=== PATIENT | male | born 1965 | race Caucasian/White ===

== ENCOUNTER → 2016-03-22 | Outpatient (CLI) | payer OTHER ==
[~2016-03-22] MED LIST: ACET-1311 PO; ALUM-30 PO; BUSP15TA70 PO; CARB1SOL8 OT; CARBSOL OTB; CLOB1SUS PO; CLOBAZAM PO; DEXT5LIQ23 PO; DOCU-94 PO; FLUO20CA37 PO; GABA-112 PO; LACO200T PO; LAMO1TAB76 PO; LAMO1TAB77 PO; LOPE-5 PO; MOML PO; MULT-190 PO; MULT60CA PO; NEOMOIN2 TOP; PRLSR20 PO; PROP80CA PO; SENN-65 PO; [UNRECOGNIZED DRUG - CODE] PO
[2016-03-22 17:22] LABS: BASO % 0.6 %; BASO ABS # 0.03 K/uL (0-0.2); COMPLETE YES; EOS % 0.9 %; IG% 0.2 %; LYMPH ABS # 1.22 K/uL (1.2-3.4); MEAN CELL VOLUME 92.2 fL (80-100); MEAN CORPUSCULAR HEMOGLOBIN 30.8 pg (25-34); MEAN CORPUSCULAR HGB CONC 33.4 g/dl (32-36); MONO % 10.9 %; NEUT % 64.4 %; PLATELET COUNT 153 K/uL (130-400); RED BLOOD COUNT 4.77 M/uL (4.7-6.1)
[2016-03-22 17:45] LABS: ALT/SGPT 19 U/L (12-78); BLOOD UREA NITROGEN 11 mg/dl (7-18); BUN/CREATININE RATIO 11.2 (10-20); CALCIUM 9.2 mg/dl (8.5-10.1); CARBON DIOXIDE 30 mmol/L (21-32); CHLORIDE 105 mmol/L (98-107); GLUCOSE 80 mg/dl (70-99); POTASSIUM 3.7 mmol/L (3.5-5.1); SODIUM 144 mmol/L (136-145)
[2016-03-22 17:48] LABS: ALB/GLOB RATIO 1.4 (0.9-2); ALKALINE PHOSPHATASE 135 U/L (45-117); AST/SGOT 15 U/L (15-37)
== END | disposition home or self-care (01) ==
LOC: C.LABBFT 11:43
PROVIDERS: ATTEND Internal Medicine
DX: G40.909 Epilepsy, unspecified, not intractable, without status epilepticus (principal)

== ENCOUNTER 2016-03-23 10:53 | Emergency (ER) | payer OTHER ==
[~2016-03-23] VITALS: Ht 180.3 cm; Wt 85.0 kg
[~2016-03-23 10:53] MED LIST changes: -CARB1SOL8 OT; -CLOB1SUS PO; -DOCU-94 PO; -MULT-190 PO
[2016-03-23 11:00] VITALS: TEMP 37.1; Ht 180.3 cm; Wt 85.0 kg
[2016-03-23 11:06] VITALS: O2SAT 94
--- NOTE | 2016-03-23 13:36 | DIAGNOSTIC IMAGING REPORT ---
SACRUM COCCYX MIN 2 VIEWS CLINICAL HISTORY: fall, coccyx pain COMPARISON STUDY: AP pelvis dated 03/05/2015 FINDINGS: No sacral or coccygeal fractures are visualized on conventional radiographic imaging. Minimal irregularity of the sacrococcygeal junction as visualized on the lateral view is likely developmental. IMPRESSION: No fractures identified on conventional radiographic imaging. Electronically signed by: Terrence Liang M.D. 03/23/2016 1:35 PM Dictated Date/Time: 03/23/2016 1:33 PM
--- NOTE | 2016-03-23 13:36 | DIAGNOSTIC IMAGING REPORT ---
LEFT SHOULDER 3 VIEWS CLINICAL HISTORY: Fall with shoulder pain. FINDINGS: 3 views of the left shoulder are compared to study dated 02/08/2013. The skeletal structures are osteopenic. No fracture or dislocation is seen. Mild productive degenerative change is identified at the acromioclavicular joint. The glenohumeral articulation is preserved. Mild arthritic change is seen in the greater tuberosity of the humeral head. Calcific tendinopathy is noted. The overlying soft tissues are within normal limits. Imaged left upper lobe lung parenchyma appears clear. IMPRESSION: 1. No acute bony abnormality is seen in the left shoulder. 2. Osteopenia, mild arthritic change, and calcific tendinopathy as above. Electronically signed by: José Luis Major M.D. 03/23/2016 1:34 PM Dictated Date/Time: 03/23/2016 1:33 PM
--- NOTE | 2016-03-23 13:38 | DIAGNOSTIC IMAGING REPORT ---
RIGHT SHOULDER MIN 2 VIEWS ROUTINE CLINICAL HISTORY: Right shoulder pain status post trauma COMPARISON: 12/07/2015 DISCUSSION: No fractures or dislocations are visualized. There is a small ossicle adjacent the inferior aspect the scapular glenoid. This remains unchanged IMPRESSION: No acute fractures or dislocations identified. Electronically signed by: Terrence Liang M.D. 03/23/2016 1:37 PM Dictated Date/Time: 03/23/2016 1:36 PM
--- NOTE | 2016-03-23 13:51 | DIAGNOSTIC IMAGING REPORT ---
CT HEAD WITHOUT CONTRAST (CT) CLINICAL HISTORY: fall; headache COMPARISON STUDY: 01/10/2016 TECHNIQUE: Axial CT of the brain is performed from the vertex to the skull base. IV contrast was not administered for this examination. CT DOSE: 823.94 mGycm FINDINGS: No intra or extra-axial mass lesions are visualized. There is no CT evidence of acute cortical infarction. There is no evidence of midline shift. There is no acute hemorrhage. No calvarial fractures are visualized. There is no evidence of pathologic ventricular dilatation. There is no evidence of acute sinusitis IMPRESSION: No acute intracranial findings Electronically signed by: Terrence Liang M.D. 03/23/2016 1:50 PM Dictated Date/Time: 03/23/2016 1:48 PM
--- NOTE | 2016-03-23 14:10 | DIAGNOSTIC IMAGING REPORT ---
CT SCAN OF THE CERVICAL SPINE CLINICAL HISTORY: Fall with neck pain. COMPARISON STUDY: CT scan of the cervical spine dated 05/20/2015. TECHNIQUE: CT scan of the cervical spine is performed from the skull base to the upper thoracic spine. Images are reviewed in the axial, sagittal, and coronal planes. IV contrast was not administered for this examination. CT DOSE: 786.06 mGycm FINDINGS: Skeletal structures: The skeletal structures are osteopenic. There is no evidence of fracture or subluxation involving the cervical spine. Vertebral body height and alignment are maintained. There is straightening of the cervical lordosis. The odontoid process and lateral masses are intact. The atlantoaxial articulation is preserved. The spinous processes appear intact. Small anterior osteophytes are seen in the lower cervical region. Mild multilevel facet arthropathy is identified. Intervertebral discs: There is moderate degenerative disc space narrowing seen at C5-C6 and mild narrowing is seen at C6-C7. Central canal: Posterior disc osteophyte complexes at C5-C6 and C6-C7 may contribute to acquired compromise of the central canal. Soft tissues: The prevertebral and paraspinous soft tissues are within normal limits. Calcification is noted within the nuchal ligament. Calvarium: The visualized calvarium at the skull base appears intact. Brain parenchyma: Partially visualized brain parenchyma the skull base is within normal limits. Sinuses and mastoids: Trace mucosal thickening is seen in the maxillary antra. The mastoid air cells are well pneumatized. Lung apices: Clear as visualized. IMPRESSION: 1. There is no evidence of fracture or subluxation involving the cervical spine. 2. Osteopenia and spondylotic change as above. Electronically signed by: José Luis Major M.D. 03/23/2016 2:08 PM Dictated Date/Time: 03/23/2016 1:49 PM
--- NOTE | 2016-03-23 14:50 | DIAGNOSTIC IMAGING REPORT ---
CHEST ONE VIEW PORTABLE HISTORY: Fall. Weakness. COMPARISON: Chest 01/10/2016 FINDINGS: There are low lung volumes. The heart is mildly enlarged. Patchy bibasilar densities. Prior cholecystectomy. No pleural effusions. No pneumothorax. No evidence for pulmonary edema. IMPRESSION: 1. Low lung volumes with patchy bibasilar densities. This favors atelectasis. However, a pneumonia could also have a appearance. 2. Mild cardiomegaly, unchanged. Electronically signed by: Marshall Castillo M.D. 03/23/2016 2:48 PM Dictated Date/Time: 03/23/2016 2:44 PM
[2016-03-23 15:04] LABS: BASO % 0.4 %; BASO ABS # 0.02 K/uL (0-0.2); COMPLETE YES; HEMATOCRIT 40.4 % (42-52); IG% 0.2 %; LYMPH % 25.1 %; LYMPH ABS # 1.24 K/uL (1.2-3.4); MEAN CELL VOLUME 91.6 fL (80-100); MEAN CORPUSCULAR HEMOGLOBIN 31.3 pg (25-34); MEAN CORPUSCULAR HGB CONC 34.2 g/dl (32-36); MEAN PLATELET VOLUME 9.4 fL (7.4-10.4); MONO % 7.1 %; NEUT % 66.2 %; PLATELET COUNT 122 K/uL (130-400); RED BLOOD COUNT 4.41 M/uL (4.7-6.1); WHITE BLOOD COUNT 4.94 K/uL (4.8-10.8)
[2016-03-23 15:25] LABS: BUN/CREATININE RATIO 10.7 (10-20); CALCIUM 8.6 mg/dl (8.5-10.1); CREATININE 0.93 mg/dl (0.60-1.40); POTASSIUM 3.7 mmol/L (3.5-5.1)
[2016-03-23 15:39] LABS: URINE APPEARANCE CLEAR (CLEAR); URINE BILIRUBIN NEG (NEG); URINE COLOR YELLOW; URINE NITRITE NEG (NEG); URINE SPECIFIC GRAVITY 1.012 (1.000-1.030); UROBILINOGEN NEG (NEG)
[2016-03-23 16:04] LABS: MANUAL MICROSCOPIC REQUIRED? NO; REVIEW REQ? NO
[2016-03-23 16:51] VITALS: BP 124/85; PULSE 56; O2SAT 96
--- NOTE | 2016-03-23 20:52 | EMERGENCY ROOM VISIT NOTE ---
ED Visit Note First contact with patient: 12:07 Chief Complaint: Fall. History of Present Illness: Mr. Chatman is a 50-year-old white male who is brought into the ED via ambulance accompanied by 2 custodial workers. Historically patient has a history of encephalopathy, seizure disorder, ambulatory dysfunction and baseline tremor. He was discharged from a local rehabilitation hospital on March 06 through return to his custodial. At that time he was admitted for ambulatory dysfunction. assisted workers felt the patient has been doing well since being discharged. The group workers go on to report that patient was seen by his neurologist last Sunday and then starting Sunday reports he has had multiple falls. Most of the falls have been out of site of the staff predominantly in the bathroom. They go on to report today the patient fell out of bed this morning; once again this was not observed, but it is believed there was no loss of consciousness. Then he went to the kitchen for breakfast and had another fall. This was observed and there was no loss of consciousness and he did not strike his head. Patient and workers reports since his second fall he is complaining of head pain , neck pain, bilateral shoulder pain and coccyx pain. Patient is unable to describe his pain. He describes his headache as a global pain. Neck pain and he is not able to identify location, bilateral shoulder pain is in the humeral head areas and coccyx pain is over his coccyx. He does rate his discomfort and overall 2/10. None of his pains are radiating. He reports he has not identified any aggravating or alleviating factors related to his head pain, neck pain or shoulder pain. Sitting on his buttocks increases his coccyx pain. Patient has been given Tylenol for his pain without relief of his discomfort. He denies any visual changes, hearing changes, difficulty speaking, difficulty swallowing, nausea, vomiting, chest pain, shortness of breath, abdominal pain, extremity weakness. Review of Systems: As noted above in history of present illness. All body systems were reviewed and found to be negative as noted above. Past Medical History: (1) Altered mental status (2) Ambulatory dysfunction (3) Encephalopathy (4) Epilepsy (5) Hydronephrosis with ureteral calculus (6) Inguinal hernia (7) Kidney stone (8) Mild mental retardation (9) Rectal bleed (10) Seizure disorder (11) Status epilepticus (12) Tegretol toxicity (13) Tremor Current Medications: Medications Dose Route/Sig Max Daily Dose Days Date Category Dose Instructions [Clobazam] 10 MG Tab 5 Mg PO BID 30 01/12/16 Rx Neurontin (Gabapentin) 100 Mg Cap 200 Mg PO BID 01/10/16 Reported Vimpat (Lacosamide) 200 Mg Tab 200 Mg PO BID 10/20/15 Reported Neosporin (Neomycin/Polymyxin/Bacitracin) Oint 1 Appl TOP BID PRN 10/05/15 Reported Delsym (Dextromethorphan Polistirex) 30 Mg/5 Ml Liq 10 Ml PO Q12 PRN 09/10/15 Reported E-R-O Ear Wax Removal Sys (Carbamide Peroxide (Otic)) 6.5 % Jenniffer 5-10 Drops OTB UD 06/23/15 Reported 5-10 DROPS INTO EAR CANAL TWICE DAILY ON FIRST 3 DAYS OF THE MONTH. Felbamate 600 Mg Tab 600 Mg PO BID 06/23/15 Reported Preservision Areds 2 (Multiple Vitamins W/ Minerals) 1 Cap Cap 2 Cap PO QAM 06/23/15 Reported Tylenol (Acetaminophen) 325 Mg Tab 650 Mg PO Q6 PRN 06/23/15 Reported Senokot S (Sennosides-Docusate Sodium) 1 Tab Tab 1 Tab PO BID 03/22/15 Reported Lamotrigine Er (Lamotrigine) 200 Mg Tab 200 Mg PO BID 02/18/15 Reported ALONG WITH 100 MG TAB TO EQUAL TOTAL DOSAGE OF 300MG TWICE A DAY Propranolol Hcl Er (Propranolol Hcl) 80 Mg Cap 80 Mg PO BID 02/18/15 Reported Lamotrigine Er (Lamotrigine) 100 Mg Tab 100 Mg PO BID 02/18/15 Reported ALONG WITH 200MG TABLET TO EQUAL TOTAL DOSAGE OF 300MG TWICW DAILY Imodium A-D (Loperamide Hcl) 2 Mg Tab 4 Mg PO UD PRN 01/11/14 Reported Prozac (Fluoxetine Hcl) 20 Mg Cap 20 Mg PO HS 01/11/14 Reported Buspar (Buspirone Hcl) 15 Mg Tab 30 Mg PO HS 01/11/14 Reported Buspar (Buspirone Hcl) 15 Mg Tab 15 Mg PO QAM 01/11/14 Reported Mylanta (Alum & Mag Hydrox-Simethicone) 1 Henrietta Henrietta 30 Ml PO Q6H PRN 07/13/13 Reported Milk Of Magnesia (Magnesium Hydroxide) 30 Ml Susp 30 Ml PO UD PRN 07/13/13 Reported Prilosec (Omeprazole) 20 Mg Capcr 20 Mg PO QAM 11/21/08 Reported Allergies to Medications: Ibuprofen, Bactrim, levetiracetam. Social History: Patient is not currently employed and is on disability; he lives in a custodial; there is no reported tobacco or alcohol use. Physical Examination: Vital Signs: Date Time Temp Pulse Resp B/P Pulse Ox O2 Delivery O2 Flow Rate FiO2 03/23/16 16:51 56 18 124/85 96 Room Air 03/23/16 15:16 56 19 110/74 94 Room Air 03/23/16 12:00 54 18 101/67 93 Room Air 03/23/16 11:06 94 Room Air 03/23/16 11:00 57 03/23/16 11:00 37.1 59 18 122/65 95 Room Air GENERAL: 50-year-old male in mild distress due to pain, nontoxic-appearing, afebrile and hemodynamically stable. NEUROLOGICAL: Awake, alert and oriented to person; questionably place and time. Answering questions appropriately and following commands. Patient has a baseline tremor of the tongue and extremities. Okay hand eye coordination. Cranial nerves II through XII grossly intact. Unable to assess pronator drift or Romberg test. Poor short-term and long-term recall. SKIN: Warm, dry and pink. No soft tissue trauma noted. HEENT: Atraumatic and normocephalic. Skull: No bony deformity, depressions or tenderness. No raccoon's eyes or reyes signs. No drainage from any years of the nostril; no hemotympanum. Face: No bony deformities, bony tenderness, crepitus or ecchymosis. PERRLA. EOMI intact with no apparent nystatin this. Sclera white and conjunctiva pink. No malocclusion. No intraoral trauma. Airway patent. Speech is slightly garbled at times difficult to understand. Trachea midline. No jugular venous distention. BACK: No tenderness over the bony cervical, thoracic and lumbar spine. Full range of motion of the cervical spine. Moderate tenderness over the proximal coccyx without bony deformity or crepitus. I do not appreciate any swelling or ecchymosis in the area of the coccyx or sacrum. No CVA tenderness. THORAX: Lungs sounds are clear to auscultation and equal bilaterally with symmetrical chest wall. No wheezing, rales or rhonchi. No crepitus, tenderness , subcutaneous air or deformities noted. HEART: Regular rate and rhythm. No gallops, rubs or murmurs are appreciated. ABDOMEN: Flat, soft and nontender. Positive bowel sounds in all quadrants. No guarding, rigidity or organomegaly. UPPER EXTREMITIES: No gross bony deformity. No tenderness in the shoulder, elbow, forearm, wrist, hand and fingers. Difficult to assess range of motion due to tremor. Throughout the arms to skin was warm and pink and capillary refill is brisk. LOWER EXTREMITIES: No shortening or malrotation. No tenderness over the hips, thighs, knees, lower legs, ankles or feet. Throughout the legs the skin was warm and pink and capillary refill is brisk. ED Course: Patient is assessed as noted above. Laboratory Testing: Test 03/23/16 14:40 03/23/16 15:15 03/23/16 15:23 Range/Units White Blood Count 4.94 4.8-10.8 K/uL Red Blood Count 4.41 4.7-6.1 M/uL Hemoglobin 13.8 14.0-18.0 g/dL Hematocrit 40.4 42-52 % Mean Corpuscular Volume 91.6 80-100 fL Mean Corpuscular Hemoglobin 31.3 25-34 pg Mean Corpuscular Hemoglobin Concent 34.2 32-36 g/dl Platelet Count 122 130-400 K/uL Mean Platelet Volume 9.4 7.4-10.4 fL Neutrophils (%) (Auto) 66.2 % Lymphocytes (%) (Auto) 25.1 % Monocytes (%) (Auto) 7.1 % Eosinophils (%) (Auto) 1.0 % Basophils (%) (Auto) 0.4 % Neutrophils # (Auto) 3.27 1.4-6.5 K/uL Lymphocytes # (Auto) 1.24 1.2-3.4 K/uL Monocytes # (Auto) 0.35 0.11-0.59 K/uL Eosinophils # (Auto) 0.05 0-0.5 K/uL Basophils # (Auto) 0.02 0-0.2 K/uL RDW Standard Deviation 45.0 36.4-46.3 fL RDW Coefficient of Variation 13.4 11.5-14.5 % Immature Granulocyte % (Auto) 0.2 % Immature Granulocyte # (Auto) 0.01 0.00-0.02 K/uL Sodium Level 145 136-145 mmol/L Potassium Level 3.7 3.5-5.1 mmol/L Chloride Level 108 98-107 mmol/L Carbon Dioxide Level 28 21-32 mmol/L Anion Gap 9.0 3-11 mmol/L Blood Urea Nitrogen 10 7-18 mg/dl Creatinine 0.93 0.60-1.40 mg/dl Est Creatinine Clear Calc Drug Dose 100.0 ml/min Estimated GFR () 109.8 Estimated GFR (Non- 94.7 BUN/Creatinine Ratio 10.7 10-20 Random Glucose 82 70-99 mg/dl Calcium Level 8.6 8.5-10.1 mg/dl Total Bilirubin 0.6 0.2-1 mg/dl Direct Bilirubin 0.1 0-0.2 mg/dl Aspartate Amino Transf (AST/SGOT) 13 15-37 U/L Alanine Aminotransferase (ALT/SGPT) 20 12-78 U/L Alkaline Phosphatase 124 45-117 U/L Total Protein 6.4 6.4-8.2 gm/dl Albumin 3.7 3.4-5.0 gm/dl Urine Color YELLOW Urine Appearance CLEAR CLEAR Urine pH 6.0 4.5-7.5 Urine Specific [place] 1.012 1.000-1.030 Urine Protein NEG NEG Urine Glucose (UA) NEG NEG Urine Ketones NEG NEG Urine Occult Blood 1+ NEG Urine Nitrite NEG NEG Urine Bilirubin NEG NEG Urine Urobilinogen NEG NEG Urine Leukocyte Esterase NEG NEG Urine WBC (Auto) 1-5 0-5 /hpf Urine RBC (Auto) 10-30 0-4 /hpf Urine Hyaline Casts (Auto) 1-5 0-5 /lpf Urine Epithelial Cells (Auto) 10-20 0-5 /lpf Urine Bacteria (Auto) NEG NEG Bedside Troponin I 0.000 0-0.045 ng/ml Head CT: Was reviewed by myself and read by the radiologist showing no acute intracranial findings or fractures. Cervical Spine CT: Was reviewed by myself and read by the radiologist and shows no evidence of fracture or subluxation. There is osteopenia and spondylotic changes noted. Right Shoulder X-Rays: Were read by myself and the radiologist showing no fractures or dislocations. Left Shoulder X-Rays: Were read by myself and the radiologist showing no acute fractures or dislocations. Radiologist notes the bony structures are osteopenic with mild arthritic changes and calcified tendinopathy. Sacrum/Coccyx X-Rays: Were read by myself and the radiologist showing no acute fractures; radiologist does note a minimal irregularity but feels this most likely developmental. Chest X-Rays: Were read by myself and the radiologist and patchy bibasilar densities favoring atelectasis, mild cardiomegaly, no pleural effusions or pneumothorax. EKG: Was read by myself and reviewed with Dr. Buckner; shows sinus bradycardia with a ventricular rate of 51 bpm. Nonspecific T-wave abnormalities. No acute signs of infiltrates, effusions or pneumothorax. This was compared to her previous from January 2016 and no changes were noted. Patient was reassessed multiple times during his stay in the emergency department. Patient's case was reviewed with Dr. Buckner; we agreed on diagnostic approach, treatment, disposition and plan. Case management was consulted for possible rehabilitation hospital stay for his ambulatory dysfunction; rehabilitation hospital felt admission was not warranted at this time. Patient's custodial workers were educated about tonight's findings and instructed on his treatment plan; they verbalized understanding and agreement with this plan. Clinical Impression: Fall. Possible laboratory dysfunction. Head pain without signs of concussion. Neck pain. Bilateral shoulder pain. Coccyx pain. Decision-Making: Initially my differential diagnosis I considered intracranial bleed, skull fracture, neck fracture, neck subluxation, coccyx fracture, shoulder fractures, metabolic disturbance, urinary tract infection and other causes. Disposition: Patient discharged back to his custodial; prior to departure he was reassessed and subjectively reported he was feeling the same. Plan: Was encouraged that the patient continue his current medications as prescribed. Head injury precautions were discussed including wake-up procedures. Was encouraged that the patient follow-up with his primary care provider for recheck in 2-3 days. Was encouraged that the patient brought back to the emergency department for any signs of head injury, additional falls or any new/concerning symptoms.
--- NOTE | 2016-03-24 16:34 | EMERGENCY ROOM VISIT NOTE ---
ED Visit Note First contact with patient: 12:07 I have personally seen and evaluated the patient with the PA. I agree with the diagnosis and management decisions and have been personally involved in the case. Please see Xander Pacheco PA-C's notes for further details of the history, physical and visit.
== END 2016-03-23 17:18 | disposition home or self-care (01) ==
LOC: EDBD 10:53 → C.EDC 10:54
DX: R29.6 Repeated falls (principal); R51 Headache; M54.2 Cervicalgia; M25.511 Pain in right shoulder; M25.512 Pain in left shoulder; M53.3 Sacrococcygeal disorders, not elsewhere classified; G40.909 Epilepsy, unspecified, not intractable, without status epilepticus; F70 Mild intellectual disabilities; Z79.899 Other long term (current) drug therapy; W18.30XA Fall on same level, unspecified, initial encounter; Y92.190 Kitchen in other specified residential institution as the place of occurrence of the external cause; Y99.8 Other external cause status

== ENCOUNTER 2016-04-17 23:38 | Emergency (ER) | payer OTHER ==
[~2016-04-17] VITALS: Ht 180.3 cm; Wt 82.0 kg
[2016-04-17 23:49] VITALS: TEMP 36.8; Ht 180.3 cm; Wt 82.0 kg
--- NOTE | 2016-04-18 00:08 | EMERGENCY ROOM VISIT NOTE ---
History Report prepared by Candelaria: Luciana Luna Under the Supervision of: Dr. Ag Ramos M.D. First contact with patient: 23:56 Chief Complaint: LACERATION/CUT (SUT/DERMABOND) Stated Complaint: LACERATION TO HEAD Nursing Triage Summary: Patient has approx. 2inch laceration to right side of head. Patient trippped over bedsheet and hit his head off of end table. Patient denies LOC, headache and neck/back pain. History of Present Illness The patient is a 50 year old male who presents to the Emergency Room with complaints of laceration of the right side of the head occurring [employer]IED [employer]. The patient states that he tripped on his bed sheet and his his head off the table causing a laceration. The patient denies any LOC, neck or back pain. The patient states he has minimal pain on his head rating it as a 2/10 in severity. The patient states he is unsure if he has a updated tetanus shot. Source of History: patient Onset: C[employer] Position: head Symptom Intensity: 2/10 Associated Symptoms: No LOC, No back pain, No neck pain Review of Systems See HPI for pertinent positives & negatives. A total of 6 systems reviewed and were otherwise negative. Past Medical & Surgical Medical Problems: (1) Altered mental status (2) Ambulatory dysfunction (3) Encephalopathy (4) Epilepsy (5) Hydronephrosis with ureteral calculus (6) Inguinal hernia (7) Kidney stone (8) Mild mental retardation (9) Rectal bleed (10) Seizure disorder (11) Status epilepticus (12) Tegretol toxicity (13) Tremor Family History Heart disease Hypertension Kidney disease Social History Smoking Status: Never Smoker Alcohol Use: none Drug Use: none Marital Status: single Housing Status: assisted living Occupation Status: disabled Current/Historical Medications Scheduled Buspirone Hcl (Buspar), 15 MG PO QAM Buspirone Hcl (Buspar), 30 MG PO HS Carbamide Peroxide (Otic) (E-R-O Ear Wax Removal Sys), 5-10 DROPS OTB UD Felbamate (Felbamate), 600 MG PO BID Fluoxetine Hcl (Prozac), 20 MG PO HS Gabapentin (Neurontin), 200 MG PO BID Lacosamide (Vimpat), 200 MG PO BID Lamotrigine (Lamotrigine Er), 100 MG PO BID Lamotrigine (Lamotrigine Er), 200 MG PO BID Multiple Vitamins W/ Minerals (Preservision Areds 2), 2 CAP PO QAM Omeprazole (Prilosec), 20 MG PO QAM Propranolol Hcl (Propranolol Hcl Er), 80 MG PO BID Sennosides-Docusate Sodium (Senokot S), 1 TAB PO BID [Clobazam], 5 MG PO BID Scheduled PRN Acetaminophen (Tylenol), 650 MG PO Q6 PRN for F/CHACKO/P Alum & Mag Hydrox-Simethicone (Mylanta), 30 ML PO Q6H PRN for Upset Stomach/ Vomiting Dextromethorphan Polistirex (Delsym), 10 ML PO Q12 PRN for Cough Loperamide Hcl (Imodium A-D), 4 MG PO UD PRN for Diarrhea Magnesium Hydroxide (Milk Of Magnesia), 30 ML PO UD PRN for Constipation Neomycin/Polymyx/Bacitr (Neosporin), 1 APPL TOP BID PRN for CUTS,SCRAPES, ABRASIONS Allergies Coded Allergies: Sulfamethoxazole w/Trimethoprim (Verified Allergy, Unknown, dizziness and increase in tremor, 04/18/16) Grapefruit (Verified Adverse Reaction, Unknown, INTERACTS WITH OTHER MEDS , 04/18/16) Ibuprofen (Verified Adverse Reaction, Unknown, avoids secondary to reactions with other medications, 04/18/16) Levetiracetam (Verified Adverse Reaction, Unknown, AGITATION, 04/18/16) Physical Exam Vital Signs Date Time Temp Pulse Resp B/P Pulse Ox O2 Delivery O2 Flow Rate FiO2 04/18/16 01:27 52 17 124/76 95 04/17/16 23:49 36.8 56 19 133/80 95 Room Air Physical Exam GENERAL: Patient is mild distress and well appearing. MR. CHAMBERLAIN: 3 cm laceration over right scientologist, no active bleeding, nontender, mucous membranes moist, no nasal congestion, no scleral icterus. NECK: No stridor, no adenopathy, no meningismus, trachea is midline. LUNGS: No dyspnea. Clear to auscultation and equal bilaterally. No wheeze, no rhonchi. HEART: Regular rate and rhythm. No murmurs, rubs, gallops appreciated. EXTREMITIES: Normal motion all extremities, no cyanosis, no edema. NEUROLOGIC: Alert and oriented, no acute motor or sensory deficits, no focal weakness, cranial nerves grossly intact. SKIN: No rash, no jaundice, no diaphoresis. Medical Decision & Procedures ER Provider Diagnostic Interpretation: CT results as stated below per interpretation by me and the radiologist: Preliminary Findings Only--- See Final Report for Complete Findings: CT HEAD: Comparison CT dated 03/23/2016 No evidence of acute intracranial hemorrhage, skull fracture, or other acute intracranial abnormality. Small right scalp laceration Mild paranasal sinus disease Medications Administered Medications (Trade) Dose Ordered Sig/Hugh Route Start Time Stop Time Status Last Admin Dose Admin Diphtheria/ Pertussis/Tetanus Vacc (Adacel Inj) 0.5 ml ONCE ONCE IM. 04/18/16 00:15 04/18/16 00:16 DC 04/18/16 00:31 0.5 ML Procedure Location: right scientologist Total length: 3 cm Complexity: simple Verbal consent was obtained after the risks and benefits were explained, including but not limited to bleeding, scarring, infection, pain, and bone/joint /nerve damage. At this time, the risks of the procedure are less than the risks of NOT performing the procedure. A time out was taken and the correct patient and site identified. The skin was prepped with betadine. The target area was anesthetized with 2 ml of 1% lidocaine with epinephrine. Copious irrigation was performed using Betadine and saline. The skin was re-prepped with betadine and a sterile field set. The wound was explored for foreign bodies and none found. Examination revealed no injury to deep structures such as tendons, bone, or significant blood vessels. Debridement was not performed. The wound edges were approximated using 7 jemal. Hemostasis and excellent approximation was achieved. Antibacterial ointment and a sterile dressing applied. Detailed wound care instructions and signs and symptoms of infection reviewed with the patient. No complications and the patient tolerated the procedure well. ED Course 0000: The patient was evaluated in room C5. A complete history and physical exam was performed. 0015: Ordered Lidocaine/Epinephrine 20 ml INFIL, Diphtheria/Pertussis/Tetanus Vacc 0.5 ml IM. 0050: I placed the jemal to repair the 3 cm laceration on the right scientologist. Discussed results and discharge instructions: He verbalized understanding and agreement. The patient is ready for discharge. Medical Decision Differential: Simple Laceration, Complex Laceration, Imbedded Foreign Body, Skull Fx, ICH, as well as Tetanus Status, amongst other pathologies entertained. 50 yr old male with chronic ambulatory disfunction and usually uses wheelchair but tonight tripped while walking across room. Notes this was purely mechanical without other symptoms. Struck right scientologist with resulting laceration closed by me. No other injuries and denies neck pain nor other pains. CT head is negative. RTED or PCP in 1 week for staple removal. Given Tetanus vaccine as unclear last vaccination. Impression Primary Impression: Laceration of scalp Additional Impressions: Fall Head injury, closed [id number] (DTP) vaccination Scribe Attestation The scribe's documentation has been prepared under my direction and personally reviewed by me in its entirety. I confirm that the note above accurately reflects all work, treatment, procedures, and medical decision making performed by me. Departure Information Dispostion Home / Self-Care Referrals Jose Juan Brady M.D. (PCP) Forms HOME CARE DOCUMENTATION FORM, IMPORTANT VISIT INFORMATION Patient Instructions ED Laceration Scalp Stitch Or Stap, My [facility] Additional Instructions There were 7 jemal placed in right scalp which should be removed in 1 week. Return to ED or follow up with Primary Provider for staple removal. A CT Head was done which was negative for any acute injuries. A Tetanus shot was administered as well. Problem Qualifiers Primary Impression: Laceration of scalp Encounter type: initial encounter Qualified Codes: S01.01XA - Laceration without foreign body of scalp, initial encounter Additional Impressions: Fall Encounter type: initial encounter Qualified Codes: W19.XXXA - Unspecified fall, initial encounter Head injury, closed Encounter type: initial encounter Qualified Codes: S09.90XA - Unspecified injury of head, initial encounter
[2016-04-18] MEDS ORDERED: LIDOCAINE/EPINEPHRINE 1% 20 ML VIAL INFIL ONE (00:15)
[2016-04-18] MEDS ORDERED: DIPHTHERIA/TETANUS/PERTUSSIS 0.5 ML SYR/VIAL IM. ONE (00:15)
[2016-04-18 01:27] VITALS: BP 124/76; PULSE 52; O2SAT 95
--- NOTE | 2016-04-18 07:13 | DIAGNOSTIC IMAGING REPORT ---
HEAD CT NONCONTRAST CT DOSE: 729.78 mGycm HISTORY: right scalp laceration from fall/trauma TECHNIQUE: Multiaxial CT images of the head were performed without the use of intravenous contrast. Automated exposure control was utilized for this study. Comparison: Head CT 03/23/2016. Findings: Mild mucosal thickening within the right maxillary sinus and right ethmoid air cells. The mastoid air cells are clear. The calvarium and skull base are intact. The ventricles and sulci are within normal limits. There is no mass, hematoma, midline shift, or acute infarct. Right scalp laceration. Impression: No acute intracranial abnormality. Right scalp laceration. Electronically signed by: Marshall Castillo M.D. 04/18/2016 7:12 AM Dictated Date/Time: 04/18/2016 7:09 AM
== END 2016-04-18 01:27 | disposition home or self-care (01) ==
LOC: EDBD 23:38 → C.EDC 23:40
DX: S01.01XA Laceration without foreign body of scalp, initial encounter (principal); S09.90XA Unspecified injury of head, initial encounter; W01.0XXA Fall on same level from slipping, tripping and stumbling without subsequent striking against object, initial encounter; Z23 Encounter for immunization; G40.901 Epilepsy, unspecified, not intractable, with status epilepticus; F70 Mild intellectual disabilities; G93.40 Encephalopathy, unspecified; Z87.442 Personal history of urinary calculi

== ENCOUNTER → 2016-04-19 | Outpatient (CLI) | payer OTHER ==
[~2016-04-19] MED LIST changes: +CARB1SOL8 OT; +CLOB1SUS PO; +DOCU-94 PO; +MULT-190 PO
== END | disposition home or self-care (01) ==
LOC: C.LAB 14:24
PROVIDERS: ATTEND Urology
DX: N40.0 Benign prostatic hyperplasia without lower urinary tract symptoms (principal)

== ENCOUNTER 2016-06-30 06:03 | Emergency (ER) | payer OTHER ==
[~2016-06-30] VITALS: Ht 177.8 cm; Wt 82.1 kg
[~2016-06-30 06:03] MED LIST changes: -CARB1SOL8 OT; -CLOB1SUS PO; -DOCU-94 PO; -MULT-190 PO; -NEOMOIN2 TOP; +NEOMOIN3 TOP
[2016-06-30 06:06] VITALS: TEMP 36.8; Ht 177.8 cm; Wt 82.1 kg
[2016-06-30] MEDS ORDERED: DOCU-94 PO (06:30)
[2016-06-30] MEDS ORDERED: CLOB1SUS PO (06:31)
--- NOTE | 2016-06-30 07:56 | DIAGNOSTIC IMAGING REPORT ---
CT SCAN OF THE BRAIN WITHOUT IV CONTRAST CLINICAL HISTORY: Fall. COMPARISON STUDY: CT of the brain dated 04/18/2016. TECHNIQUE: Unenhanced axial CT scan of the brain is performed from the vertex to the skull base. Automated dose control exposure was utilized. CT DOSE: 729.78 mGycm FINDINGS: Brain parenchyma: The brain parenchyma is normal in appearance. There is no hemorrhage, mass effect, or evidence of acute territorial ischemia by CT criteria. Garcia-white matter is preserved. No extra-axial fluid collection is seen. Ventricles, sulci, cisterns: Normal in configuration. Intracranial vasculature: The visualized intracranial vasculature at the skull base is normal in appearance. Calvarium: There is no depressed calvarial fracture. Sinuses and mastoids: Trace mucosal thickening is seen within the maxillary antra. The remaining paranasal sinuses are clear. The mastoid air cells are well pneumatized. Orbits: The bony orbits are grossly intact. IMPRESSION: No acute intracranial abnormality. Electronically signed by: José Luis Major M.D. 06/30/2016 7:55 AM Dictated Date/Time: 06/30/2016 7:53 AM
[2016-06-30 08:30] VITALS: BP 103/69; PULSE 55; O2SAT 97
--- NOTE | 2016-06-30 09:11 | EMERGENCY ROOM VISIT NOTE ---
History Report prepared by Candelaria: Sarina Fitzgerald Under the Supervision of: Dr. Macarena Lyons D.O. First contact with patient: 06:34 Chief Complaint: SEIZURE Stated Complaint: SEIZURE Nursing Triage Summary: Pt presents als for evaluation s/p seizure. Pt had 8 seizures yesterday, seen by pcp with no change to meds. Seizure this am, fell from bed hit back of head. History of Present Illness The patient is a 51 year old male who presents to the Emergency Room with complaints of a persistent headache starting this morning. This morning, he accidentally rolled out of bed and hit the right side of his head on his night stand. He has had a headache since. He was not seizing at the time of his fall. He denies any loss of consciousness. He got up afterwards to make his bed. He had 8 seizures yesterday and visited his PCP. No changes were made to his medications. It is not abnormal for him to have multiple seizures a day. Source of History: patient, caregiver Onset: this morning Position: head Quality: ache Timing: other (persistent) Associated Symptoms: No LOC Review of Systems See HPI for pertinent positives & negatives. A total of 10 systems reviewed and were otherwise negative. Past Medical & Surgical Medical Problems: (1) Altered mental status (2) Ambulatory dysfunction (3) Encephalopathy (4) Epilepsy (5) Hydronephrosis with ureteral calculus (6) Inguinal hernia (7) Kidney stone (8) Mild mental retardation (9) Rectal bleed (10) Seizure disorder (11) Status epilepticus (12) Tegretol toxicity (13) Tremor Family History Heart disease Hypertension Kidney disease Social History Smoking Status: Never Smoker Alcohol Use: none Drug Use: none Marital Status: single Housing Status: assisted living Occupation Status: disabled Current/Historical Medications Scheduled Buspirone Hcl (Buspar), 15 MG PO QAM Buspirone Hcl (Buspar), 30 MG PO HS Carbamide Peroxide (Otic) (E-R-O Ear Wax Removal Sys), 5-10 DROPS OTB UD Clobazam (Onfi), 5 MG PO BID Docusate Sodium (Colace), 100 MG PO BID Felbamate (Felbamate), 600 MG PO BID Fluoxetine Hcl (Prozac), 20 MG PO HS Gabapentin (Neurontin), 200 MG PO BID Lacosamide (Vimpat), 200 MG PO BID Lamotrigine (Lamotrigine Er), 100 MG PO BID Lamotrigine (Lamotrigine Er), 200 MG PO BID Multiple Vitamins W/ Minerals (Preservision Areds 2), 2 CAP PO QAM Omeprazole (Prilosec), 20 MG PO QAM Propranolol Hcl (Propranolol Hcl Er), 80 MG PO BID Sennosides-Docusate Sodium (Senokot S), 1 TAB PO BID Scheduled PRN Acetaminophen (Tylenol), 650 MG PO Q6 PRN for F/CHACKO/P Alum & Mag Hydrox-Simethicone (Mylanta), 30 ML PO Q6H PRN for Upset Stomach/ Vomiting Dextromethorphan Polistirex (Delsym), 10 ML PO Q12 PRN for Cough Loperamide Hcl (Imodium A-D), 4 MG PO UD PRN for Diarrhea Magnesium Hydroxide (Milk Of Magnesia), 30 ML PO UD PRN for Constipation Neomycin/Polymyx/Bacitr (Neosporin), 1 APPL TOP BID PRN for CUTS,SCRAPES, ABRASIONS Allergies Coded Allergies: Sulfamethoxazole w/Trimethoprim (Verified Allergy, Unknown, dizziness and increase in tremor, 06/30/16) Grapefruit (Verified Adverse Reaction, Unknown, INTERACTS WITH OTHER MEDS , 06/30/16) Ibuprofen (Verified Adverse Reaction, Unknown, avoids secondary to reactions with other medications, 06/30/16) Levetiracetam (Verified Adverse Reaction, Unknown, AGITATION, 06/30/16) Physical Exam Vital Signs Date Time Temp Pulse Resp B/P Pulse Ox O2 Delivery O2 Flow Rate FiO2 06/30/16 08:30 55 16 103/69 97 Room Air 06/30/16 07:51 51 16 111/68 91 Room Air 06/30/16 06:18 55 06/30/16 06:06 36.8 54 16 111/77 93 Room Air Physical Exam HEENT: Head - left parietooccipital hematoma. Pupils are equal, round, and reactive to light. Extraocular eye muscles are intact and sclera are anicteric. Ears - bilaterally patent canals with no evidence of hemotympanum. Nose - moist nasal mucosa without evidence of trauma or discharge. Mouth - moist buccal mucosa with no trauma to the teeth or signs of malocclusion. Neck: The neck is supple and there is no pain to palpation over the posterior cervical spine and no obvious step-offs or deformities. There is no JVD or tracheal deviation. Chest: There are no signs of deformities, contusions or abrasions to the chest wall. There is no obvious crepitus or paradoxical chest rise. Heart: Regular, rate, and rhythm. There is a normal S1 and S2 with no murmurs, clicks, or gallops appreciated. Lungs: Clear to auscultation bilaterally with no wheezes, rales, or rhonchi. Abdomen: Soft, completely nontender, nondistended, with good bowel sounds. There is no sign of trauma such as contusions, abrasions or penetrations. There are no palpable pulsatile masses or hepatosplenomegaly. There is no guarding, rigidity, or rebound noted. Pelvis: Stable to rock and compression. Extremities: No obvious trauma, deformities, contusions, or edema. There are easily palpable peripheral pulses. Neuro: The patient is slightly lethargic but alert and easily able to follow commands. Muscle strength is 5 out of 5 in all 4 extremities. Tremulous. Otherwise, neuro exam is unremarkable. Back: The entire thoracic, lumbar, and sacral spine were palpated. There are no obvious step-offs or deformities noted. There are no obvious signs of trauma such as contusions abrasions penetrations noted to the back. Medical Decision & Procedures ER Provider Diagnostic Interpretation: Radiology results as stated below per my review and the radiologist's interpretation: CT SCAN OF THE BRAIN WITHOUT IV CONTRAST CLINICAL HISTORY: Fall. COMPARISON STUDY: CT of the brain dated 04/18/2016. TECHNIQUE: Unenhanced axial CT scan of the brain is performed from the vertex to the skull base. Automated dose control exposure was utilized. CT DOSE: 729.78 mGycm FINDINGS: Brain parenchyma: The brain parenchyma is normal in appearance. There is no hemorrhage, mass effect, or evidence of acute territorial ischemia by CT criteria. Garcia-white matter is preserved. No extra-axial fluid collection is seen. Ventricles, sulci, cisterns: Normal in configuration. Intracranial vasculature: The visualized intracranial vasculature at the skull base is normal in appearance. Calvarium: There is no depressed calvarial fracture. Sinuses and mastoids: Trace mucosal thickening is seen within the maxillary antra. The remaining paranasal sinuses are clear. The mastoid air cells are well pneumatized. Orbits: The bony orbits are grossly intact. IMPRESSION: No acute intracranial abnormality. Electronically signed by: José Luis Major M.D. 06/30/2016 7:55 AM Dictated Date/Time: 06/30/2016 7:53 AM ED Course 0640: The patient was evaluated in room A9B. A complete history and physical examination were performed. Nursing notes and previous electronic medical records were reviewed. The patient went for CT scan of his brain as described above. 0814: Upon reevaluation, the patient was sleeping. I woke him up and I discussed findings and results with him and his care worker. They verbalized agreement of the treatment plan. I have filled out the paperwork from [employer]. He was discharged home. Medical Decision The patient is a 51 year old male who presents to the ED with a headache. Differential diagnosis includes seizure, fall, head trauma, skull fracture, closed head injury, concussion. The patient does suffer from seizure disorder. He has multiple seizures in the day. He is currently taking anticonvulsants. The patient admits that he rolled over in bed and fell out of the bed striking his head on a nightstand. He admits to being dazed and confused but did not lose consciousness. CT scan of the brain was unremarkable. Impression Primary Impression: Fall from bed Additional Impression: Closed head injury Scribe Attestation The scribe's documentation has been prepared under my direction and personally reviewed by me in its entirety. I confirm that the note above accurately reflects all work, treatment, procedures, and medical decision making performed by me. Departure Information Dispostion Home / Self-Care Referrals Jose Juan Brady M.D. (PCP) Forms HOME CARE DOCUMENTATION FORM, IMPORTANT VISIT INFORMATION Patient Instructions ED Head Injury Closed, My [facility] Additional Instructions Rest. If seizures are increasing in frequency, please follow up with his Neurologist Problem Qualifiers
== END 2016-06-30 08:57 | disposition home or self-care (01) ==
LOC: EDBD 06:03 → C.EDA 06:04
DX: S09.90XA Unspecified injury of head, initial encounter (principal); W06.XXXA Fall from bed, initial encounter; G40.909 Epilepsy, unspecified, not intractable, without status epilepticus; F70 Mild intellectual disabilities; Z87.442 Personal history of urinary calculi; Z82.49 Family history of ischemic heart disease and other diseases of the circulatory system; Z79.899 Other long term (current) drug therapy

== ENCOUNTER 2016-07-20 09:13 | Emergency (ER) | payer OTHER ==
[~2016-07-20] VITALS: Ht 180.3 cm; Wt 85.1 kg
[~2016-07-20 09:13] MED LIST changes: +CLOB1SUS PO; -CLOBAZAM PO; +DOCU-94 PO
[2016-07-20 09:20] VITALS: TEMP 37.3; Ht 180.3 cm; Wt 85.1 kg
[2016-07-20] MEDS ORDERED: MULT-190 PO (09:52)
[2016-07-20] MEDS ORDERED: CARB1SOL8 OT (09:52)
--- NOTE | 2016-07-20 10:16 | EMERGENCY ROOM VISIT NOTE ---
History First contact with patient: 09:23 Chief Complaint: FALL Stated Complaint: FALL History of Present Illness The patient is a 51 year old male who presents from a snf to the Emergency Room with complaints of fall backwards while attempting to get into his wheelchair, states he reached too far back and lost his balance causing him to fall.. Patient states he did hit the back of his head, denies loss of consciousness. He does complain of mild neck pain and mild headache, denies any chest pain, shortness of breath, abdominal pain, back pain, nausea/vomiting , diarrhea, urinary symptoms. He did not take any medicine for the pain. Past medical history significant for mild MR, seizures, spastic tremors. Patient states he has been well controlled on his seizure medication and he has been having improvement in the treatment of his tremors. Review of Systems GENERAL: Denies fevers, chills, malaise, fatigue, unintentional weight changes. HEENT: Denies dizziness, visual problems, hearing loss, tinnitus. Denies difficulty swallowing or oral lesions. PULMONARY: Denies cough, shortness of breath, sputum production or hemoptysis. CARDIOVASCULAR: Denies chest pain, palpitations, dyspnea on exertion, orthopnea or peripheral edema. GASTROINTESTINAL: Denies diarrhea, constipation, nausea, vomiting, or abdominal pain. GENITOURINARY: Denies dysuria, frequency, urgency or nocturia. NEUROLOGIC: Denies history of epilepsy, CVA, TIA or chronic headaches. + Headache. MUSCULOSKELETAL: Denies history of joint tenderness/swelling. + Neck pain SKIN: Denies rashes or lesions. PSYCHIATRIC: Denies history of depression or mental illness. ENDOCRINE: Denies history of diabetes, thyroid disorders, abnormal hair growth or sexual dysfunction. Past Medical/Surgical History Medical Problems: (1) Altered mental status (2) Ambulatory dysfunction (3) Encephalopathy (4) Epilepsy (5) Hydronephrosis with ureteral calculus (6) Inguinal hernia (7) Kidney stone (8) Mild mental retardation (9) Rectal bleed (10) Seizure disorder (11) Status epilepticus (12) Tegretol toxicity (13) Tremor Family History Heart disease Hypertension Kidney disease Social History Smoking Status: Never Smoker Alcohol Use: none Drug Use: none Marital Status: single Housing Status: assisted living Occupation Status: disabled Current/Historical Medications Scheduled Buspirone Hcl (Buspar), 15 MG PO QAM Buspirone Hcl (Buspar), 30 MG PO HS Carbamide Peroxide (Otic) (Debrox), 5-10 DROPS OT UD Clobazam (Onfi), 10 MG PO BID Docusate Sodium (Colace), 100 MG PO BID Felbamate (Felbamate), 600 MG PO BID Fluoxetine Hcl (Prozac), 20 MG PO HS Gabapentin (Neurontin), 200 MG PO BID Lacosamide (Vimpat), 200 MG PO BID Lamotrigine (Lamotrigine Er), 100 MG PO BID Lamotrigine (Lamotrigine Er), 200 MG PO BID Multiple Vitamins W/ Minerals (Preservision Areds 2), 2 CAP PO QAM Omeprazole (Prilosec), 20 MG PO QAM Propranolol Hcl (Propranolol Hcl Er), 80 MG PO BID Sennosides-Docusate Sodium (Senokot S), 1 TAB PO BID Scheduled PRN Acetaminophen (Tylenol), 650 MG PO Q6 PRN for F/CHACKO/P Alum & Mag Hydrox-Simethicone (Mylanta), 30 ML PO Q6H PRN for Upset Stomach/ Vomiting Dextromethorphan Polistirex (Delsym), 10 ML PO Q12 PRN for Cough Loperamide Hcl (Imodium A-D), 4 MG PO UD PRN for Diarrhea Magnesium Hydroxide (Milk Of Magnesia), 30 ML PO UD PRN for Constipation Neomycin/Polymyx/Bacitr (Neosporin), 1 APPL TOP BID PRN for CUTS,SCRAPES, ABRASIONS Allergies Coded Allergies: Sulfamethoxazole w/Trimethoprim (Verified Allergy, Unknown, dizziness and increase in tremor, 07/20/16) Grapefruit (Verified Adverse Reaction, Unknown, INTERACTS WITH OTHER MEDS , 07/20/16) Ibuprofen (Verified Adverse Reaction, Unknown, avoids secondary to reactions with other medications, 07/20/16) Levetiracetam (Verified Adverse Reaction, Unknown, AGITATION, 07/20/16) Physical Exam Vital Signs Date Time Temp Pulse Resp B/P Pulse Ox O2 Delivery O2 Flow Rate FiO2 07/20/16 12:59 87 20 118/78 100 07/20/16 10:43 78 20 116/70 92 07/20/16 09:20 37.3 64 18 115/79 95 Room Air Physical Exam CONSTITUTIONAL: No acute distress. Well appearing and well nourished. Alert and oriented X 4 with normal affect. HEENT: Normocephalic. There is a small contusion on the posterior scalp, mildly tender to palpation, no crepitus or skull depression palpated, no breaks in the skin or active bleeding. Pupils equal, round and reactive to light, EOMI. TMs normal. Pharynx normal. Moist mucous membranes NECK: Mild midline tenderness of the cervical spine on initial exam, therefore patient was immediately placed into a hard c-collar. RESPIRATORY: Clear to auscultation bilaterally with no wheezing, crackles, rhonchi or stridor. Equal expansion bilaterally. CARDIOVASCULAR: Regular rate and rhythm with no murmurs, rubs or gallops. Normal peripheral perfusion. No edema. GASTROINTESTINAL: Soft, nontender, nondistended. Bowel sounds present in all quadrants. MUSCULOSKELETAL: Full range of motion of all joints without discomfort. INTEGUMENTARY: No rash or other significant dermatologic conditions noted. NEUROLOGIC: Cranial nerves II-XII grossly intact. No focal neurologic deficits noted. Normal motor, normal sensation. Medical Decision & Procedures ER Provider Diagnostic Interpretation: CT HEAD WITHOUT CONTRAST (CT) CLINICAL HISTORY: Head trauma. Headache. COMPARISON STUDY: 06/30/2016 TECHNIQUE: Axial CT of the brain is performed from the vertex to the skull base. IV contrast was not administered for this examination. CT DOSE: 776.86 mGycm FINDINGS: No intra or extra-axial mass lesions are visualized. There is no CT evidence of acute cortical infarction. There is no evidence of midline shift. There is no acute hemorrhage. No calvarial fractures are visualized. There is a left parietal and posterior parieto-occipital scalp edema. There is no evidence of pathologic ventricular dilatation. There is no evidence of acute sinusitis IMPRESSION: Areas of scalp edema, likely posttraumatic. No acute intracranial findings. ----- CT SCAN OF THE CERVICAL SPINE CLINICAL HISTORY: Fall with neck pain. COMPARISON STUDY: CT scan of the cervical spine dated 03/23/2016. TECHNIQUE: CT scan of the cervical spine is performed from the skull base to the upper thoracic spine. Images are reviewed in the axial, sagittal, and coronal planes. IV contrast was not administered for this examination. CT DOSE: 501.88 mGycm FINDINGS: Skeletal structures: The skeletal structures are osteopenic. There is no evidence of fracture or subluxation involving the cervical spine. Vertebral body height and alignment are maintained. There is straightening of the cervical lordosis. The odontoid process and lateral masses are intact. The atlantoaxial articulation is preserved noting productive degenerative change. The spinous processes appear intact. Small anterior osteophytes are seen in the lower cervical region. Mild multilevel facet arthropathy is identified. Intervertebral discs: There is moderate degenerative disc space narrowing seen at C5-C6 and mild narrowing is seen at C6-C7. Central canal: Posterior disc osteophyte complexes at C5-C6 and C6-C7 may contribute to acquired compromise of the central canal. Soft tissues: The prevertebral and paraspinous soft tissues are within normal limits. Calcification is noted within the nuchal ligament. Calvarium: The visualized calvarium at the skull base appears intact. Brain parenchyma: Partially visualized brain parenchyma the skull base is within normal limits. Sinuses and mastoids: Trace mucosal thickening is seen in the maxillary antra. The mastoid air cells are well pneumatized. Lung apices: Clear as visualized. IMPRESSION: 1. There is no evidence of fracture or subluxation involving the cervical spine. 2. Osteopenia and spondylotic change as above. ----- CHEST ONE VIEW PORTABLE CLINICAL HISTORY: Trauma. Back pain. COMPARISON STUDY: 03/23/2016 FINDINGS: The heart remains mildly enlarged. There is no pneumothorax. There are minor basilar atelectatic changes. There is mild central vascular prominence without evidence of overt failure.[ There is no lobar consolidation. IMPRESSION: Cardiomegaly and minor basilar atelectatic changes similar to the prior study. Medications Administered Medications (Trade) Dose Ordered Sig/Hugh Route Start Time Stop Time Status Last Admin Dose Admin Acetaminophen (Tylenol Tab) 1,000 mg NOW STAT PO 07/20/16 12:22 07/20/16 12:24 DC 07/20/16 12:43 1,000 MG Medical Decision CC: Patient presenting with complaint of head and neck pain status post fall. Differential Diagnosis: Includes, but not limited to scalp contusion, abrasion, skull fracture, intracranial hemorrhage, cervical spine trauma. Summary: Patient was evaluated at bedside, history of physical exam performed. He is alert and cooperative, no acute distress. He does complain of midline cervical spine tenderness on exam, therefore he was immediately placed into a c- collar. Orders were placed at bedside for imaging of the head, C-spine, chest to evaluate for traumatic injury. Patient discussed with Dr. Buckner, who agrees with my assessment and plan. Patient reassessed multiple times throughout ED stay, he remained stable and well-appearing. CT imaging and chest x-ray reviewed, no acute abnormalities. Patient reassessed at 12:10 PM, states his symptoms have improved. I updated him on all results. C-spine clinically cleared, no midline pain with passive range of motion. Patient complains of a mild headache, Tylenol ordered for this. Patient updated on plan for discharge home, he is agreeable to this. He was discharged in stable condition. Impression Primary Impression: Fall Additional Impression: Contusion of occipital region of scalp Departure Information Dispostion Home / Self-Care Condition GOOD Referrals Jose Juan Brady M.D. (PCP) Patient Instructions ED Contusion Scalp, ED Prevention Fall, My [facility] Additional Instructions You have been treated in the Emergency Department for a Closed Head Injury. CT Scan of your head/brain demonstrated no acute bleeding or other abnormalities. This does not completely rule out the risk for future damage to the brain. CT of the C-spine showed no fractures. For pain control, you can use the following [id number] medicines (if >12 yo): - Regular strength (325mg/tab) Tylenol (acetaminophen) 2 tabs every 4-6 hours as needed. Do not exceed 12 tablets in a 24 hour period. Avoid taking more than 4 grams (4000 mg) of Tylenol per day. This includes any other sources of acetaminophen you may take on a regular basis. - Regular strength (200 mg/tab) Advil (ibuprofen) 1-2 tabs every 4-6 hours as needed. Do not exceed a dose of 3200 mg per day. You should relax in a quiet, dark place for the rest of the day. Avoid any possible triggers including: cigarette smoke, caffeine, nicotine, chocolate, wine, beer, loud noises or music, or bright lights. You may apply ice to your scalp contusion to help with swelling and pain. You should schedule a follow-up appointment in 2-3 days with your Primary Care Provider or established Neurologist for further evaluation and treatment of your Headache. Return to the Emergency Department if your current symptoms worsen despite treatment course outlined above, or if you develop any of the following symptoms : intractable pain despite above treatment course, vision changes, loss of vision, one-sided weakness or facial drooping, slurring of speech, loss of coordination, or loss of consciousness. Problem Qualifiers Primary Impression: Fall Encounter type: initial encounter Qualified Codes: W19.XXXA - Unspecified fall, initial encounter Additional Impression: Contusion of occipital region of scalp Encounter type: initial encounter Qualified Codes: S00.03XA - Contusion of scalp, initial encounter
--- NOTE | 2016-07-20 10:21 | DIAGNOSTIC IMAGING REPORT ---
CT SCAN OF THE CERVICAL SPINE CLINICAL HISTORY: Fall with neck pain. COMPARISON STUDY: CT scan of the cervical spine dated 03/23/2016. TECHNIQUE: CT scan of the cervical spine is performed from the skull base to the upper thoracic spine. Images are reviewed in the axial, sagittal, and coronal planes. IV contrast was not administered for this examination. CT DOSE: 501.88 mGycm FINDINGS: Skeletal structures: The skeletal structures are osteopenic. There is no evidence of fracture or subluxation involving the cervical spine. Vertebral body height and alignment are maintained. There is straightening of the cervical lordosis. The odontoid process and lateral masses are intact. The atlantoaxial articulation is preserved noting productive degenerative change. The spinous processes appear intact. Small anterior osteophytes are seen in the lower cervical region. Mild multilevel facet arthropathy is identified. Intervertebral discs: There is moderate degenerative disc space narrowing seen at C5-C6 and mild narrowing is seen at C6-C7. Central canal: Posterior disc osteophyte complexes at C5-C6 and C6-C7 may contribute to acquired compromise of the central canal. Soft tissues: The prevertebral and paraspinous soft tissues are within normal limits. Calcification is noted within the nuchal ligament. Calvarium: The visualized calvarium at the skull base appears intact. Brain parenchyma: Partially visualized brain parenchyma the skull base is within normal limits. Sinuses and mastoids: Trace mucosal thickening is seen in the maxillary antra. The mastoid air cells are well pneumatized. Lung apices: Clear as visualized. IMPRESSION: 1. There is no evidence of fracture or subluxation involving the cervical spine. 2. Osteopenia and spondylotic change as above. Electronically signed by: José Luis Major M.D. 07/20/2016 10:19 AM Dictated Date/Time: 07/20/2016 10:17 AM
--- NOTE | 2016-07-20 10:22 | DIAGNOSTIC IMAGING REPORT ---
CT HEAD WITHOUT CONTRAST (CT) CLINICAL HISTORY: Head trauma. Headache. COMPARISON STUDY: 06/30/2016 TECHNIQUE: Axial CT of the brain is performed from the vertex to the skull base. IV contrast was not administered for this examination. CT DOSE: 776.86 mGycm FINDINGS: No intra or extra-axial mass lesions are visualized. There is no CT evidence of acute cortical infarction. There is no evidence of midline shift. There is no acute hemorrhage. No calvarial fractures are visualized. There is a left parietal and posterior parieto-occipital scalp edema. There is no evidence of pathologic ventricular dilatation. There is no evidence of acute sinusitis IMPRESSION: Areas of scalp edema, likely posttraumatic. No acute intracranial findings. Electronically signed by: Terrence Liang M.D. 07/20/2016 10:21 AM Dictated Date/Time: 07/20/2016 10:19 AM
--- NOTE | 2016-07-20 10:40 | DIAGNOSTIC IMAGING REPORT ---
CHEST ONE VIEW PORTABLE CLINICAL HISTORY: Trauma. Back pain. COMPARISON STUDY: 03/23/2016 FINDINGS: The heart remains mildly enlarged. There is no pneumothorax. There are minor basilar atelectatic changes. There is mild central vascular prominence without evidence of overt failure.[ There is no lobar consolidation. IMPRESSION: Cardiomegaly and minor basilar atelectatic changes similar to the prior study. Electronically signed by: Terrence Liang M.D. 07/20/2016 10:39 AM Dictated Date/Time: 07/20/2016 10:38 AM
[2016-07-20] MEDS ORDERED: ACETAMINOPHEN 500 MG TAB PO STA (12:22)
[2016-07-20 12:59] VITALS: BP 118/78; PULSE 87; O2SAT 100
== END 2016-07-20 13:01 | disposition home or self-care (01) ==
LOC: EDBD 09:13 → C.EDA 09:15
DX: S00.83XA Contusion of other part of head, initial encounter (principal); W01.0XXA Fall on same level from slipping, tripping and stumbling without subsequent striking against object, initial encounter; G40.909 Epilepsy, unspecified, not intractable, without status epilepticus; G93.40 Encephalopathy, unspecified; F79 Unspecified intellectual disabilities; Z87.442 Personal history of urinary calculi; Z79.899 Other long term (current) drug therapy; Z88.2 Allergy status to sulfonamides; Z88.6 Allergy status to analgesic agent; Z88.8 Allergy status to other drugs, medicaments and biological substances; Z91.018 Allergy to other foods; Z82.49 Family history of ischemic heart disease and other diseases of the circulatory system; Z84.1 Family history of disorders of kidney and ureter

== ENCOUNTER → 2016-09-20 | Outpatient (CLI) | payer OTHER ==
[~2016-09-20] MED LIST changes: +CARB1SOL8 OT; -CARBSOL OTB; +NEOMOIN2 TOP; -NEOMOIN3 TOP
== END | disposition home or self-care (01) ==
LOC: C.MAMM 11:02
PROVIDERS: ATTEND Nurse Practitioner
DX: M85.88 Other specified disorders of bone density and structure, other site (principal)

== ENCOUNTER → 2016-10-09 | Outpatient (CLI) | payer OTHER | END | disposition home or self-care (01) | LOC: C.LAB1850 09:17 | PROVIDERS: ATTEND Physician Assistant | DX: G40.909 Epilepsy, unspecified, not intractable, without status epilepticus (principal) ==

== ENCOUNTER 2016-12-16 14:13 | Emergency (ER) | payer OTHER ==
[~2016-12-16] VITALS: Ht 180.3 cm; Wt 95.6 kg
[2016-12-16 14:13] VITALS: Ht 180.3 cm; Wt 95.6 kg
--- NOTE | 2016-12-16 14:30 | EMERGENCY ROOM VISIT NOTE ---
History Report prepared by Candelaria: Vi Cid Under the Supervision of: Dr. Lnio Peters D.O. First contact with patient: 14:18 Stated Complaint: SEIZURE History of Present Illness The patient is a 51 year old male who presents to the Emergency Room with complaints of seizure like activity that started around 1315 today. He was brought to the ED via EMS. EMS reports they witnessed seizure like activity when they arrived at the patients [facility]. He had been seizing for about 5 minutes prior to EMS arrival. He was given 2 Ativan in the field, which provided moderate relief. The patient has a history of seizures and EMS states he is back at his baseline here in the ED. The patient denies any headache or other discomfort here in the ED. Source of History: patient, EMS Onset: 1314 today Position: other (global) Timing: resolved Modifying Factors (Relieving): other (Ativan) Associated Symptoms: No headache Review of Systems See HPI for pertinent positives & negatives. A total of 10 systems reviewed and were otherwise negative. Past Medical & Surgical Medical Problems: (1) Altered mental status (2) Ambulatory dysfunction (3) Encephalopathy (4) Epilepsy (5) Hydronephrosis with ureteral calculus (6) Inguinal hernia (7) Kidney stone (8) Mild mental retardation (9) Rectal bleed (10) Seizure disorder (11) Status epilepticus (12) Tegretol toxicity (13) Tremor Family History Heart disease Hypertension Kidney disease Social History Smoking Status: Never Smoker Alcohol Use: none Drug Use: none Marital Status: single Housing Status: assisted living Occupation Status: disabled Current/Historical Medications Scheduled Buspirone Hcl (Buspar), 15 MG PO QAM Buspirone Hcl (Buspar), 30 MG PO HS Carbamide Peroxide (Otic) (Debrox), 5-10 DROPS OT UD Clobazam (Onfi), 5 MG PO BID Docusate Sodium (Colace), 100 MG PO BID Felbamate (Felbamate), 600 MG PO BID Fluoxetine Hcl (Prozac), 20 MG PO HS Gabapentin (Neurontin), 200 MG PO BID Lacosamide (Vimpat), 250 MG PO BID Lamotrigine (Lamotrigine Er), 100 MG PO BID Lamotrigine (Lamotrigine Er), 200 MG PO BID Lamotrigine (Lamictal), 25 MG PO BID Multiple Vitamins W/ Minerals (Preservision Areds 2), 2 CAP PO QAM Omeprazole (Prilosec), 20 MG PO QAM Propranolol Hcl (Propranolol Hcl Er), 80 MG PO BID Sennosides-Docusate Sodium (Senokot S), 1 TAB PO BID Scheduled PRN Acetaminophen (Tylenol), 650 MG PO Q6 PRN for F/CHACKO/P Alum & Mag Hydrox-Simethicone (Mylanta), 30 ML PO Q6H PRN for Upset Stomach/ Vomiting Dextromethorphan Polistirex (Delsym), 10 ML PO Q12 PRN for Cough Loperamide Hcl (Imodium A-D), 4 MG PO UD PRN for Diarrhea Magnesium Hydroxide (Milk Of Magnesia), 30 ML PO UD PRN for Constipation Neomycin/Polymyx/Bacitr (Neosporin), 1 APPL TOP BID PRN for CUTS,SCRAPES, ABRASIONS Allergies Coded Allergies: Sulfamethoxazole w/Trimethoprim (Verified Allergy, Unknown, dizziness and increase in tremor, 12/16/16) Grapefruit (Verified Adverse Reaction, Unknown, INTERACTS WITH OTHER MEDS , 12/16/16) Ibuprofen (Verified Adverse Reaction, Unknown, avoids secondary to reactions with other medications, 12/16/16) Levetiracetam (Verified Adverse Reaction, Unknown, AGITATION, 12/16/16) Physical Exam Vital Signs Date Time Temp Pulse Resp B/P (MAP) Pulse Ox O2 Delivery O2 Flow Rate FiO2 12/16/16 18:24 36.9 53 19 107/74 95 12/16/16 18:01 107/74 12/16/16 17:40 53 19 95 12/16/16 17:30 129/107 12/16/16 17:10 51 23 12/16/16 17:05 53 16 94 12/16/16 17:00 116/71 12/16/16 16:48 54 16 95 12/16/16 16:30 122/69 12/16/16 16:18 53 16 96 12/16/16 16:00 115/77 12/16/16 15:48 54 17 93 12/16/16 15:43 55 15 96 12/16/16 15:30 112/82 12/16/16 15:13 55 18 94 12/16/16 15:01 118/78 12/16/16 14:43 55 19 93 12/16/16 14:34 97 Room Air 12/16/16 14:24 55 12/16/16 14:19 116/85 12/16/16 14:13 36.9 55 17 116/85 97 Room Air 12/16/16 14:13 36.9 55 17 116/85 97 Room Air 12/16/16 14:13 97 Room Air Physical Exam GENERAL: Patient awakens to verbal commands, appears somewhat listless, but follows commands with prompting. EYES: The conjunctivae are clear. The pupils are round and reactive. EARS, NOSE, MOUTH AND THROAT: The nose is without any evidence of any deformity. Mucous membranes are moist tongue is midline NECK: The neck is nontender and supple. RESPIRATORY: Normal respiratory effort is noted there is no evidence of wheezing rhonchi or rales CARDIOVASCULAR: Regular rate and rhythm noted there no murmurs rubs or gallops normal S1 normal S2 GASTROINTESTINAL: The abdomen is soft. Bowel sounds are present in all quadrants. Abdomen is nontender MUSCULOSKELETAL/EXTREMITIES: There is no evidence of gross deformity full range of motion is noted in the hips and shoulders SKIN: There is no obvious evidence of any rash. There are no petechiae, pallor or cyanosis noted. NEUROLOGIC: Patient is oriented to person, place and situation. Resting tremor noted, strength is symmetric. Medical Decision & Procedures ER Provider Diagnostic Interpretation: Radiology results as stated below per my review and radiologist interpretation: SINGLE VIEW CHEST CLINICAL HISTORY: Seizure. FINDINGS: An AP, portable, upright chest radiograph is compared to study dated 07/20/2016. The examination is degraded by portable technique and apical lordotic positioning. The heart is enlarged and there is atherosclerotic calcification of the thoracic aorta. The pulmonary vasculature is noncongested. There is bibasilar atelectasis.. No airspace consolidation, large pleural effusion, or pneumothorax is seen. The bony thorax is grossly intact. Cholecystectomy clips are seen in the right upper quadrant. IMPRESSION: Cardiac enlargement with no acute cardiopulmonary abnormality. Electronically signed by: José Luis Major M.D. 12/16/2016 2:48 PM Laboratory Results 12/16/16 14:52 Red Blood Count 4.74, Mean Corpuscular Volume 93.9, Mean Corpuscular Hemoglobin 31.4, Mean Corpuscular Hemoglobin Concent 33.5, Mean Platelet Volume 8.9, Neutrophils (%) (Auto) 63.1, Lymphocytes (%) (Auto) 27.0, Monocytes (%) (Auto) 9.3, Eosinophils (%) (Auto) 0.2, Basophils (%) (Auto) 0.2, Neutrophils # (Auto) 3.13, Lymphocytes # (Auto) 1.34, Monocytes # (Auto) 0.46, Eosinophils # (Auto) 0.01, Basophils # (Auto) 0.01 12/16/16 14:52 Test 12/16/16 14:52 12/16/16 16:15 White Blood Count 4.96 K/uL (4.8-10.8) Red Blood Count 4.74 M/uL (4.7-6.1) Hemoglobin 14.9 g/dL (14.0-18.0) Hematocrit 44.5 % (42-52) Mean Corpuscular Volume 93.9 fL (80-100) Mean Corpuscular Hemoglobin 31.4 pg (25-34) Mean Corpuscular Hemoglobin Concent 33.5 g/dl (32-36) Platelet Count 128 K/uL (130-400) Mean Platelet Volume 8.9 fL (7.4-10.4) Neutrophils (%) (Auto) 63.1 % Lymphocytes (%) (Auto) 27.0 % Monocytes (%) (Auto) 9.3 % Eosinophils (%) (Auto) 0.2 % Basophils (%) (Auto) 0.2 % Neutrophils # (Auto) 3.13 K/uL (1.4-6.5) Lymphocytes # (Auto) 1.34 K/uL (1.2-3.4) Monocytes # (Auto) 0.46 K/uL (0.11-0.59) Eosinophils # (Auto) 0.01 K/uL (0-0.5) Basophils # (Auto) 0.01 K/uL (0-0.2) RDW Standard Deviation 45.8 fL (36.4-46.3) RDW Coefficient of Variation 13.3 % (11.5-14.5) Immature Granulocyte % (Auto) 0.2 % Immature Granulocyte # (Auto) 0.01 K/uL (0.00-0.02) Prothrombin Time 10.2 SECONDS (9.0-12.0) Prothromb Time International Ratio 1.0 (0.9-1.1) Activated Partial Thromboplast Time 38.9 SECONDS (21.0-31.0) Partial Thromboplastin Ratio 1.5 Anion Gap 5.0 mmol/L (3-11) Est Creatinine Clear Calc Drug Dose 109.6 ml/min Estimated GFR () 109.0 Estimated GFR (Non- 94.1 BUN/Creatinine Ratio 13.1 (10-20) Calcium Level 9.1 mg/dl (8.5-10.1) Phosphorus Level 2.8 mg/dl (2.5-4.9) Magnesium Level 1.9 mg/dl (1.8-2.4) Troponin I < 0.015 ng/ml (0-0.045) Thyroid Stimulating Hormone (TSH) 0.680 uIu/ml (0.300-4.500) Urine Color DK YELLOW Urine Appearance CLEAR (CLEAR) Urine pH 6.0 (4.5-7.5) Urine Specific Range 1.027 (1.000-1.030) Urine Protein NEG (NEG) Urine Glucose (UA) NEG (NEG) Urine Ketones TRACE (NEG) Urine Occult Blood NEG (NEG) Urine Nitrite NEG (NEG) Urine Bilirubin NEG (NEG) Urine Urobilinogen POS (NEG) Urine Leukocyte Esterase TRACE (NEG) Urine WBC (Auto) 1-5 /hpf (0-5) Urine RBC (Auto) 0-4 /hpf (0-4) Urine Hyaline Casts (Auto) 0 /lpf (0-5) Urine Epithelial Cells (Auto) 10-20 /lpf (0-5) Urine Bacteria (Auto) NEG (NEG) Laboratory results per my review. ECG Indication: weakness Rate (beats per minute): 52 Rhythm: sinus bradycardia Findings: no ectopy, other (no acute ST segment abnormalities) Change: no significant change (No change from 03/23/2016) ED Course 1419: The patient was evaluated in room B10. A complete history and physical examination were performed. 1515: I spoke to the patients father. He reports the patient experiences seizures almost every day, but the episode today lasted longer than usual, so they became concerned and called EMS. 1640: I reevaluated the patient. He is resting comfortably. I spoke with his [employer] representative who notes they are having staffing issues at this time and she is concerned the patient needs a higher level of care. I will have case management speak with the patient. 1656: Our business case analyst informed me he has spoken to the patients [employer] passenger representative. They are going to work on increasing staff available to help the patient. 1720: I reevaluated the patient. He is resting comfortably. I discussed his results and discharge instructions and his Father and [employer] passenger representative verbalized complete understanding and agreement. Medical Decision Prior records/ancillary studies reviewed. Patient placed in seizure precautions immediately upon arrival. Nursing notes reviewed. Additional history obtained from EMS. The patient's history was concerning for a possible seizure. Differential diagnosis: Etiologies such as infection, hypoglycemia, electrolyte abnormalities, cardiac sources, intracerebral event, trauma, toxicologic, neurologic, as well as others were entertained. The patient is a 51-year-old male who has a long-standing history of seizure which is also very difficult to control. The patient is had multiple seizures throughout the day but had one lasted longer than they are used to and his assisted living facility. The patient was compliant with medications. I reviewed the patient's most recent visits. He is had 6 CAT scans of the brain over the last 12 months. He was given Ativan prior to arrival and upon arrival was not having any active seizure activity. He was reevaluated multiple times and appears to be at his baseline according to his father. I discussed the patient's laboratory radiographic studies with him and his family member. I recommended that they follow-up with the primary neurologist as soon as possible for further evaluation. He was seen by his neurologist from [facility] recently. No changes were made. The patient is on currently multiple antiseizure medications which have been stable. They were encouraged to follow-up with the neurologist as well as primary care physician for further evaluation. They were also encouraged to return to the emergency department immediately if symptoms change worsen or the need arises. Head Trauma GCS Score: 15 Medication Reconcilliation Current Medication List: was personally reviewed by me Blood Pressure Screening Patient's blood pressure: Normal blood pressure Blood pressure disposition: Did not require urgent referral Impression Primary Impression: Seizure Scribe Attestation The scribe's documentation has been prepared under my direction and personally reviewed by me in its entirety. I confirm that the note above accurately reflects all work, treatment, procedures, and medical decision making performed by me. Departure Information Dispostion Home / Self-Care Referrals Jose Juan Brady M.D. (PCP) Patient Instructions ED Seizure Recurrent, My [facility] Additional Instructions Continue all medications as prescribed. Follow-up with your family this week for reevaluation. Follow-up with your neurologist as soon as possible.
[2016-12-16 14:34] VITALS: O2SAT 97
--- NOTE | 2016-12-16 14:50 | DIAGNOSTIC IMAGING REPORT ---
SINGLE VIEW CHEST CLINICAL HISTORY: Seizure. FINDINGS: An AP, portable, upright chest radiograph is compared to study dated 07/20/2016. The examination is degraded by portable technique and apical lordotic positioning. The heart is enlarged and there is atherosclerotic calcification of the thoracic aorta. The pulmonary vasculature is noncongested. There is bibasilar atelectasis.. No airspace consolidation, large pleural effusion, or pneumothorax is seen. The bony thorax is grossly intact. Cholecystectomy clips are seen in the right upper quadrant. IMPRESSION: Cardiac enlargement with no acute cardiopulmonary abnormality. Electronically signed by: José Luis Major M.D. 12/16/2016 2:48 PM Dictated Date/Time: 12/16/2016 2:47 PM
[2016-12-16 15:05] LABS: BASO % 0.2 %; BASO ABS # 0.01 K/uL (0-0.2); COMPLETE YES; EOS % 0.2 %; HEMATOCRIT 44.5 % (42-52); IG% 0.2 %; LYMPH ABS # 1.34 K/uL (1.2-3.4); MEAN CELL VOLUME 93.9 fL (80-100); MEAN CORPUSCULAR HEMOGLOBIN 31.4 pg (25-34); MEAN CORPUSCULAR HGB CONC 33.5 g/dl (32-36); MEAN PLATELET VOLUME 8.9 fL (7.4-10.4); MONO % 9.3 %; NEUT % 63.1 %; PLATELET COUNT 128 K/uL (130-400); RED BLOOD COUNT 4.74 M/uL (4.7-6.1); WHITE BLOOD COUNT 4.96 K/uL (4.8-10.8)
[2016-12-16 15:22] LABS: PARTIAL THROMBOPLASTIN RATIO 1.5; PROTHROMBIN TIME (PATIENT) 10.2 SECONDS (9.0-12.0)
[2016-12-16 15:23] LABS: BLOOD UREA NITROGEN 12 mg/dl (7-18); BUN/CREATININE RATIO 13.1 (10-20); CALCIUM 9.1 mg/dl (8.5-10.1); CARBON DIOXIDE 30 mmol/L (21-32); CHLORIDE 106 mmol/L (98-107); CREATININE 0.93 mg/dl (0.60-1.40); GLUCOSE 88 mg/dl (70-99); MAGNESIUM 1.9 mg/dl (1.8-2.4); SODIUM 141 mmol/L (136-145)
[2016-12-16 15:34] LABS: PHOSPHORUS 2.8 mg/dl (2.5-4.9)
[2016-12-16] MEDS ORDERED: LAMO25TA PO (15:41)
[2016-12-16 16:30] LABS: URINE APPEARANCE CLEAR (CLEAR); URINE BILIRUBIN NEG (NEG); URINE COLOR DK YELLOW; URINE NITRITE NEG (NEG); URINE SPECIFIC GRAVITY 1.027 (1.000-1.030); UROBILINOGEN POS (NEG); ZZURINE CULT IF INDIC CATH NO
[2016-12-16 16:32] LABS: MANUAL MICROSCOPIC REQUIRED? NO; REVIEW REQ? NO
[2016-12-16 18:24] VITALS: BP 107/74; PULSE 53; TEMP 36.9; O2SAT 95
== END 2016-12-16 18:26 | disposition home or self-care (01) ==
LOC: EDBD 14:13 → C.EDB 14:17
DX: G40.909 Epilepsy, unspecified, not intractable, without status epilepticus (principal); G93.40 Encephalopathy, unspecified; K40.90 Unilateral inguinal hernia, without obstruction or gangrene, not specified as recurrent; F70 Mild intellectual disabilities; Z82.49 Family history of ischemic heart disease and other diseases of the circulatory system

== ENCOUNTER 2017-01-23 09:03 | Emergency (ER) | payer OTHER ==
[~2017-01-23] VITALS: Ht 180.3 cm; Wt 85.2 kg
[~2017-01-23 09:03] MED LIST changes: +LAMO25TA PO; -NEOMOIN2 TOP; +NEOMOIN3 TOP
[2017-01-23] MEDS ORDERED: ACETAMINOPHEN 500 MG TAB PO STA (09:10)
[2017-01-23 09:14] VITALS: TEMP 36.5; Ht 180.3 cm; Wt 85.2 kg
--- NOTE | 2017-01-23 09:14 | EMERGENCY ROOM VISIT NOTE ---
History Report prepared by Candelaria: Frances Toledo Under the Supervision of: Dr. Lino Peters D.O. First contact with patient: 09:05 Stated Complaint: FALL - HEAD PAIN History of Present Illness The patient is a 51 year old male who presents to the Emergency Room with complaints of headache after a fall. The patient lives in a personal residential. He has a very debilitating tremor. This is not new for him. He was transferring from a chair to his wheelchair the chair moved because the brake was not set. The patient fell striking the right side of his head. He does not complain of any chest pain or difficulty in healing. He has no lower extremity pain. He does complain of a headache. He denies having any neck pain. He states that he has taken all of his morning medications. He was not given anything for pain prior to arrival. The patient arrived at the emergency department via ambulance. Source of History: patient Onset: [employer] Position: head Timing: other (episode) Associated Symptoms: + headache, No neck pain, No chest pain Note: Pt denies LE pain. Review of Systems See HPI for pertinent positives & negatives. A total of 10 systems reviewed and were otherwise negative. Past Medical & Surgical Medical Problems: (1) Altered mental status (2) Ambulatory dysfunction (3) Encephalopathy (4) Epilepsy (5) Hydronephrosis with ureteral calculus (6) Inguinal hernia (7) Kidney stone (8) Mild mental retardation (9) Rectal bleed (10) Seizure disorder (11) Status epilepticus (12) Tegretol toxicity (13) Tremor Family History Heart disease Hypertension Kidney disease Social History Smoking Status: Never Smoker Alcohol Use: none Drug Use: none Marital Status: single Housing Status: assisted living Occupation Status: disabled Current/Historical Medications Scheduled Buspirone Hcl (Buspar), 15 MG PO QAM Buspirone Hcl (Buspar), 30 MG PO HS Carbamide Peroxide (Otic) (Debrox), 5-10 DROPS OT UD Clobazam (Onfi), 5 MG PO BID Docusate Sodium (Colace), 100 MG PO BID Felbamate (Felbamate), 600 MG PO BID Fluoxetine Hcl (Prozac), 20 MG PO HS Gabapentin (Neurontin), 300 MG PO QAM Gabapentin (Neurontin), 600 MG PO HS Lacosamide (Vimpat), 250 MG PO BID Lamotrigine (Lamotrigine Er), 100 MG PO BID Lamotrigine (Lamotrigine Er), 200 MG PO BID Lamotrigine (Lamictal), 25 MG PO BID Multiple Vitamins W/ Minerals (Preservision Areds 2), 2 CAP PO QAM Omeprazole (Prilosec), 20 MG PO QAM Propranolol Hcl (Propranolol Hcl Er), 80 MG PO BID Sennosides-Docusate Sodium (Senokot S), 1 TAB PO BID Scheduled PRN Acetaminophen (Tylenol), 650 MG PO Q6 PRN for F/CHACKO/P Alum & Mag Hydrox-Simethicone (Mylanta), 30 ML PO Q6H PRN for Upset Stomach/ Vomiting Dextromethorphan Polistirex (Delsym), 10 ML PO Q12 PRN for Cough Loperamide Hcl (Imodium A-D), 4 MG PO UD PRN for Diarrhea Magnesium Hydroxide (Milk Of Magnesia), 30 ML PO UD PRN for Constipation Neomycin/Polymyx/Bacitr (Neosporin), 1 APPL TOP BID PRN for CUTS,SCRAPES, ABRASIONS Allergies Coded Allergies: Sulfamethoxazole w/Trimethoprim (Verified Allergy, Unknown, dizziness and increase in tremor, 01/23/17) Grapefruit (Verified Adverse Reaction, Unknown, INTERACTS WITH OTHER MEDS , 01/23/17) Ibuprofen (Verified Adverse Reaction, Unknown, avoids secondary to reactions with other medications, 01/23/17) Levetiracetam (Verified Adverse Reaction, Unknown, AGITATION, 01/23/17) Physical Exam Vital Signs Date Time Temp Pulse Resp B/P (MAP) Pulse Ox O2 Delivery O2 Flow Rate FiO2 01/23/17 10:22 76 20 111/69 95 01/23/17 09:14 24 01/23/17 09:14 36.5 54 20 120/96 95 Room Air Physical Exam GENERAL: Patient is awake and alert. He is mildly anxious. EYES: The conjunctivae are clear. The pupils are round and reactive. There is age indeterminate ecchymosis around the right eye. EARS, NOSE, MOUTH AND THROAT: The nose is without any evidence of any deformity. Mucous membranes are moist tongue is midline NECK: The neck is nontender and supple. RESPIRATORY: Normal respiratory effort is noted there is no evidence of wheezing rhonchi or rales CARDIOVASCULAR: Regular rate and rhythm noted there no murmurs rubs or gallops normal S1 normal S2 GASTROINTESTINAL: The abdomen is soft. Bowel sounds are present in all quadrants. Abdomen is nontender MUSCULOSKELETAL/EXTREMITIES: There is no evidence of gross deformity full range of motion is noted in the hips and shoulders SKIN: There is no obvious evidence of any rash. There are no petechiae, pallor or cyanosis noted. NEUROLOGIC: Patient is awake alert and oriented times 3. Strength is symmetric. Patellar tendon reflexes are 2 plus bilaterally. There is a resting tremor which is noted in old from abnormalities. Medical Decision & Procedures ER Provider Diagnostic Interpretation: Radiology results as stated below per my review and radiologist interpretation: HEAD CT NONCONTRAST CT DOSE: HISTORY: Headache. fall TECHNIQUE: Multiaxial CT images of the head were performed without the use of intravenous contrast. Automated exposure control was utilized for this study. A dose lowering technique was utilized adhering to the principles of ALARA. Comparison: Head CT 07/20/2016. Findings: Mild mucosal thickening within the maxillary sinuses. The mastoid air cells are clear. The calvarium and skull base are intact. The ventricles and sulci are within normal limits. There is no mass, hematoma, midline shift, or acute infarct. Mild left lateral scalp swelling. Impression: No acute intracranial abnormality. Electronically signed by: Marshall Castillo M.D. 01/23/2017 9:56 AM Dictated Date/Time: 01/23/2017 9:[address] SCAN OF THE CERVICAL SPINE CLINICAL HISTORY: Fall with neck pain. COMPARISON STUDY: CT scan of the cervical spine dated 07/20/2016. TECHNIQUE: CT scan of the cervical spine is performed from the skull base to the upper thoracic spine. Images are reviewed in the axial, sagittal, and coronal planes. IV contrast was not administered for this examination. CT DOSE: 1112.50 mGy.cm FINDINGS: Skeletal structures: The skeletal structures are osteopenic. There is no evidence of fracture or subluxation involving the cervical spine. Vertebral body height and alignment are maintained. There is straightening of the cervical lordosis. The odontoid process and lateral masses are intact. The atlantoaxial articulation is preserved noting productive degenerative change. The spinous processes appear intact. Small anterior osteophytes are seen in the lower cervical region. Mild multilevel facet arthropathy is identified. Intervertebral discs: There is moderate degenerative disc space narrowing seen at C5-C6 and mild narrowing is seen at C6-C7. Central canal: Posterior disc osteophyte complexes at C5-C6 and C6-C7 may contribute to acquired compromise of the central canal. Soft tissues: The prevertebral and paraspinous soft tissues are within normal limits. A subcentimeter nodule is suggested within the right thyroid lobe. Calcification is noted within the nuchal ligament. Calvarium: The visualized calvarium at the skull base appears intact. Brain parenchyma: Partially visualized brain parenchyma the skull base is within normal limits. Sinuses and mastoids: Trace mucosal thickening is seen in the maxillary antra. The mastoid air cells are well pneumatized. Cerumen is noted within the external auditory canal bilaterally. Lung apices: Clear as visualized. IMPRESSION: 1. There is no evidence of fracture or subluxation involving the cervical spine. 2. Osteopenia and spondylotic change as above. Electronically signed by: José Luis Major M.D. 01/23/2017 9:57 AM Dictated Date/Time: 01/23/2017 9:48 AM Medications Administered Medications (Trade) Dose Ordered Sig/Hugh Route Start Time Stop Time Status Last Admin Dose Admin Acetaminophen (Tylenol Tab) 1,000 mg NOW STAT PO 01/23/17 09:10 01/23/17 09:12 DC 01/23/17 09:23 1,000 MG ED Course 0905: The patient was evaluated in room B9. A complete history and physical examination were performed. 0910: Tylenol tab 1000 mg PO 1008: I reassessed the patient at this time. He is feeling better and resting comfortably. I discussed the results and treatment plan with the patient. I answered all pertaining questions that he had. He expressed understanding and verbalized agreement. The patient will be discharged home Medical Decision Prior records/ancillary studies reviewed. Triage Nursing notes reviewed. Additional history obtained from the prehospital personnel. The patient's history was concerning for traumatic injury Differential diagnosis: Etiologies such as fracture, dislocation, intra-abdominal, pneumothorax, intrathoracic , intracranial, neurologic, as well as other traumatic pathologies were entertained. The patient is a 51-year-old male who presented to the emergency department after a fall. The patient lives in a personal residential. He struck his head. He has a history of frequent falls and seizures. He states that he has been compliant with his medications. The patient was treated with Tylenol in the emergency department. I discussed the patient's radiographic studies with him as well as his father. He was encouraged to continue all medications as prescribed and follow-up with his primary care physician. Otherwise he was encouraged to return to the emergency department immediately if symptoms change worsen or the need arises. Medication Reconcilliation Current Medication List: was personally reviewed by me Blood Pressure Screening Patient's blood pressure: Normal blood pressure Impression Primary Impression: Fall Additional Impression: Head injury Scribe Attestation The scribe's documentation has been prepared under my direction and personally reviewed by me in its entirety. I confirm that the note above accurately reflects all work, treatment, procedures, and medical decision making performed by me. Departure Information Dispostion Home / Self-Care Referrals Jose Juan Brady M.D. (PCP) Forms HOME CARE DOCUMENTATION FORM, IMPORTANT VISIT INFORMATION Patient Instructions ED Head Injury Closed, My [facility] Additional Instructions Continue all medications as prescribed. Follow-up with her primary care physician soon as possible. Return to the emergency department immediately if signs of head injury develop. Problem Qualifiers
[2017-01-23] MEDS ORDERED: GABA-113 PO (09:20)
--- NOTE | 2017-01-23 09:57 | DIAGNOSTIC IMAGING REPORT ---
HEAD CT NONCONTRAST CT DOSE: HISTORY: Headache. fall TECHNIQUE: Multiaxial CT images of the head were performed without the use of intravenous contrast. Automated exposure control was utilized for this study. A dose lowering technique was utilized adhering to the principles of ALARA. Comparison: Head CT 07/20/2016. Findings: Mild mucosal thickening within the maxillary sinuses. The mastoid air cells are clear. The calvarium and skull base are intact. The ventricles and sulci are within normal limits. There is no mass, hematoma, midline shift, or acute infarct. Mild left lateral scalp swelling. Impression: No acute intracranial abnormality. Electronically signed by: Marshall Castillo M.D. 01/23/2017 9:56 AM Dictated Date/Time: 01/23/2017 9:48 AM
--- NOTE | 2017-01-23 09:58 | DIAGNOSTIC IMAGING REPORT ---
CT SCAN OF THE CERVICAL SPINE CLINICAL HISTORY: Fall with neck pain. COMPARISON STUDY: CT scan of the cervical spine dated 07/20/2016. TECHNIQUE: CT scan of the cervical spine is performed from the skull base to the upper thoracic spine. Images are reviewed in the axial, sagittal, and coronal planes. IV contrast was not administered for this examination. CT DOSE: 1112.50 mGy.cm FINDINGS: Skeletal structures: The skeletal structures are osteopenic. There is no evidence of fracture or subluxation involving the cervical spine. Vertebral body height and alignment are maintained. There is straightening of the cervical lordosis. The odontoid process and lateral masses are intact. The atlantoaxial articulation is preserved noting productive degenerative change. The spinous processes appear intact. Small anterior osteophytes are seen in the lower cervical region. Mild multilevel facet arthropathy is identified. Intervertebral discs: There is moderate degenerative disc space narrowing seen at C5-C6 and mild narrowing is seen at C6-C7. Central canal: Posterior disc osteophyte complexes at C5-C6 and C6-C7 may contribute to acquired compromise of the central canal. Soft tissues: The prevertebral and paraspinous soft tissues are within normal limits. A subcentimeter nodule is suggested within the right thyroid lobe. Calcification is noted within the nuchal ligament. Calvarium: The visualized calvarium at the skull base appears intact. Brain parenchyma: Partially visualized brain parenchyma the skull base is within normal limits. Sinuses and mastoids: Trace mucosal thickening is seen in the maxillary antra. The mastoid air cells are well pneumatized. Cerumen is noted within the external auditory canal bilaterally. Lung apices: Clear as visualized. IMPRESSION: 1. There is no evidence of fracture or subluxation involving the cervical spine. 2. Osteopenia and spondylotic change as above. Electronically signed by: José Luis Major M.D. 01/23/2017 9:57 AM Dictated Date/Time: 01/23/2017 9:48 AM
[2017-01-23 10:22] VITALS: BP 111/69; PULSE 76; O2SAT 95
== END 2017-01-23 10:29 | disposition home or self-care (01) ==
LOC: EDBD 09:03 → C.EDB 09:05
DX: S09.90XA Unspecified injury of head, initial encounter (principal); W19.XXXA Unspecified fall, initial encounter; G40.909 Epilepsy, unspecified, not intractable, without status epilepticus; F79 Unspecified intellectual disabilities; G93.40 Encephalopathy, unspecified; Z79.899 Other long term (current) drug therapy; Z88.2 Allergy status to sulfonamides; Z88.6 Allergy status to analgesic agent; Z88.8 Allergy status to other drugs, medicaments and biological substances; Z91.018 Allergy to other foods; Z82.49 Family history of ischemic heart disease and other diseases of the circulatory system; Z84.1 Family history of disorders of kidney and ureter

== ENCOUNTER → 2017-01-31 | Outpatient (CLI) | payer OTHER ==
[~2017-01-31] MED LIST changes: +GABA-113 PO; +HYDR25SU20 PR
[2017-01-31 12:04] LABS: BASO % 0.2 %; BASO ABS # 0.01 K/uL (0-0.2); COMPLETE YES; EOS % 0.5 %; HEMATOCRIT 43.9 % (42-52); IG% 0.3 %; LYMPH % 21.7 %; LYMPH ABS # 1.34 K/uL (1.2-3.4); MEAN CELL VOLUME 95.9 fL (80-100); MEAN CORPUSCULAR HEMOGLOBIN 32.1 pg (25-34); MEAN CORPUSCULAR HGB CONC 33.5 g/dl (32-36); MEAN PLATELET VOLUME 9.4 fL (7.4-10.4); MONO % 9.7 %; NEUT % 67.6 %; PLATELET COUNT 171 K/uL (130-400); RED BLOOD COUNT 4.58 M/uL (4.7-6.1); WHITE BLOOD COUNT 6.18 K/uL (4.8-10.8)
[2017-01-31 12:25] LABS: BLOOD UREA NITROGEN 12 mg/dl (7-18); CALCIUM 9.4 mg/dl (8.5-10.1); CARBON DIOXIDE 31 mmol/L (21-32); CHLORIDE 102 mmol/L (98-107); CREATININE 1.08 mg/dl (0.60-1.40); GLUCOSE 94 mg/dl (70-99); POTASSIUM 3.8 mmol/L (3.5-5.1); SODIUM 140 mmol/L (136-145)
[2017-01-31 12:36] LABS: THYROID STIMULATING HORMONE 0.811 uIu/ml (0.300-4.500)
== END | disposition home or self-care (01) ==
LOC: C.LABBFT 11:11
PROVIDERS: ATTEND Nurse Practitioner
DX: R53.83 Other fatigue (principal); R29.6 Repeated falls

== ENCOUNTER 2017-02-01 09:17 | Inpatient (IN) | payer OTHER ==
[~2017-02-01] VITALS: Ht 182.9 cm; Wt 91.1 kg
[~2017-02-01 09:17] MED LIST changes: -HYDR25SU20 PR
[2017-02-01] MEDS ORDERED: SODIUM CHLORIDE 0.9% 1000ML 1,000 ML IV STA (09:54)
[2017-02-01] MEDS ORDERED: SODIUM CHLORIDE 0.9% 500ML 500 ML IV STA (09:54)
--- NOTE | 2017-02-01 09:56 | EMERGENCY ROOM VISIT NOTE ---
History Report prepared by Candelaria: Charlotte Philip Under the Supervision of: Dr. Roseann Buckner M.D. First contact with patient: 09:40 Chief Complaint: VOMITING Stated Complaint: ILLNESS Nursing Triage Summary: pt lives in [facility] staff reported pt vomited twice today no diarrhea staff reports pt has "had unsteady gait and mood changes over past several months" pt has seen pcp and Dr Dow pt has had recent medication changes History of Present Illness The patient is a 51 year old male who presents to the Emergency Room with complaints of confusion this morning. Per his caregiver, the patient was also vomiting this morning. Per his caregiver, the patient was unable to dress himself this morning, and over the last couple of weeks the patient has had difficulty standing up on his own. His caregiver states that the patient has not been talking a lot lately, and that this is not normal for him. Per his caregiver, the patient has lost 20 pounds recently, and she states that the patient's appetite has drastically reduced. His caregiver reports that the patient's dosage of gabapentin that he takes for tremors has increased lately. His caregiver also states that his dosage of Lamictal has also been increased lately. His caregiver states that Dr. Dow is his neurologist. Per his caregiver , the patient has not had fevers. Limited HPI secondary to altered mental status. Source of History: other (caregiver) History Limited By: AMS Onset: this morning Position: other (global) Quality: other (confusion ) Associated Symptoms: + vomiting, No fevers Review of Systems Limited ROS secondary to altered mental status. Past Medical & Surgical Medical Problems: (1) Altered mental status (2) Ambulatory dysfunction (3) Encephalopathy (4) Epilepsy (5) Hydronephrosis with ureteral calculus (6) Inguinal hernia (7) Kidney stone (8) Mild mental retardation (9) Rectal bleed (10) Seizure disorder (11) Status epilepticus (12) Tegretol toxicity (13) Tremor Family History Heart disease Hypertension Kidney disease Social History Smoking Status: Never Smoker Alcohol Use: none Drug Use: none Marital Status: single Housing Status: assisted living Occupation Status: disabled Current/Historical Medications Scheduled Buspirone Hcl (Buspar), 15 MG PO QAM Buspirone Hcl (Buspar), 30 MG PO HS Carbamide Peroxide (Otic) (Debrox), 5-10 DROPS OT UD Clobazam (Onfi), 5 MG PO BID Docusate Sodium (Colace), 100 MG PO BID Felbamate (Felbamate), 600 MG PO BID Fluoxetine Hcl (Prozac), 20 MG PO DAILY Gabapentin (Neurontin), 300 MG PO QAM Gabapentin (Neurontin), 600 MG PO PM Lacosamide (Vimpat), 200 MG PO BID Lamotrigine (Lamotrigine Er), 100 MG PO BID Lamotrigine (Lamotrigine Er), 200 MG PO BID Lamotrigine (Lamictal), 25 MG PO BID Multiple Vitamins W/ Minerals (Preservision Areds 2), 2 CAP PO QAM Omeprazole (Prilosec), 20 MG PO QAM Propranolol Hcl (Propranolol Hcl Er), 80 MG PO BID Sennosides-Docusate Sodium (Senokot S), 1 TAB PO DAILY Scheduled PRN Acetaminophen (Tylenol), 650 MG PO Q6 PRN for F/CHACKO/P Alum & Mag Hydrox-Simethicone (Mylanta), 30 ML PO Q6H PRN for Upset Stomach/ Vomiting Dextromethorphan Polistirex (Delsym), 10 ML PO Q12 PRN for Cough Hydrocortisone Acetate (Rectal (Anusol-Hc), 25 MG MD Q6 PRN for Hemorrhoids Loperamide Hcl (Imodium A-D), 4 MG PO UD PRN for Diarrhea Magnesium Hydroxide (Milk Of Magnesia), 30 ML PO UD PRN for Constipation Neomycin/Polymyx/Bacitr (Neosporin), 1 APPL TOP BID PRN for CUTS,SCRAPES, ABRASIONS Allergies Coded Allergies: Sulfamethoxazole w/Trimethoprim (Verified Allergy, Unknown, dizziness and increase in tremor, 02/01/17) Grapefruit (Verified Adverse Reaction, Unknown, INTERACTS WITH OTHER MEDS , 02/01/17) Ibuprofen (Verified Adverse Reaction, Unknown, avoids secondary to reactions with other medications, 01/23/17) Levetiracetam (Verified Adverse Reaction, Unknown, AGITATION, 02/01/17) Physical Exam Vital Signs Date Time Temp Pulse Resp B/P (MAP) Pulse Ox O2 Delivery O2 Flow Rate FiO2 02/01/17 12:00 54 18 128/71 95 Room Air 02/01/17 11:05 54 20 109/84 95 Room Air 02/01/17 09:34 36.6 54 20 135/90 94 Room Air 02/01/17 09:27 54 Physical Exam Vital signs reviewed. General: Somnolent male, in no significant distress. Teary eyes. HEENT: No scleral icterus, PERRLA, neck supple. Atraumatic. Dry mucous membranes. Cardiovascular: Regular rate and rhythm, no extra sounds. Pulmonary: Clear to auscultation bilaterally, normal work of breathing. Abdomen: Soft, nontender, nondistended, positive bowel sounds. Musculoskeletal: Atraumatic, no peripheral edema. Neurologic: Patient somnolent, able to follow simple commands, but slurred speech and difficult to interpret. Skin: Warm, dry, no rash Medical Decision & Procedures ER Provider Diagnostic Interpretation: Radiology results as stated below per my review and radiologist interpretation: KUB CLINICAL HISTORY: vomiting, AMS nausea. Vomiting. COMPARISON STUDY: 05/22/2015 FINDINGS: The soft tissues, psoas shadows, renal outlines and intestinal gas pattern appear normal. There is no evidence for bowel obstruction. No abnormal abdominal calcifications are seen. Prior cholecystectomy. Old fracture anterior right 10th rib IMPRESSION: No acute process. The above report was generated using voice recognition software. It may contain grammatical, syntax or spelling errors. Electronically signed by: Rosendo Liang M.D. 02/01/2017 10:51 AM Dictated Date/Time: 02/01/2017 10:50 AM HEAD WITHOUT CONTRAST (CT) CT DOSE: 638.56 mGycm HISTORY: Mental status change AMS TECHNIQUE: Multiaxial CT images of the head were performed without the use of intravenous contrast. A dose lowering technique was utilized adhering to the principles of ALARA. Comparison: 01/23/2017 Findings: The paranasal sinuses and mastoid air cells are clear. The calvarium and skull base are intact. The ventricles and sulci are within normal limits. There is no mass, hematoma, midline shift, or acute infarct. Impression: No acute intracranial abnormality. The above report was generated using voice recognition software. It may contain grammatical, syntax or spelling errors. Electronically signed by: Rosendo Liang M.D. 02/01/2017 10:48 AM Dictated Date/Time: 02/01/2017 10:46 AM CHEST ONE VIEW PORTABLE CLINICAL HISTORY: AMS dyspnea. Vomiting. COMPARISON STUDY: 12/16/2016 FINDINGS: Mild stable cardia megaly. Chronic left and to lesser extent right basilar atelectasis. Mid and upper lungs are considered clear. No evidence pneumothorax. Scoliosis of the thoracolumbar spine. IMPRESSION: 1. Chronic atelectatic change left and to a lesser extent right base. 2. Mild stable cardiomegaly. 3. Otherwise negative study. The above report was generated using voice recognition software. It may contain grammatical, syntax or spelling errors. Electronically signed by: Rosendo Liang M.D. 02/01/2017 10:33 AM Dictated Date/Time: 02/01/2017 10:32 AM Laboratory Results 02/01/17 10:08 Red Blood Count 4.61, Mean Corpuscular Volume 95.2, Mean Corpuscular Hemoglobin 32.3, Mean Corpuscular Hemoglobin Concent 33.9, Mean Platelet Volume 9.2, Neutrophils (%) (Auto) 71.8, Lymphocytes (%) (Auto) 17.4, Monocytes (%) (Auto) 9.7, Eosinophils (%) (Auto) 0.7, Basophils (%) (Auto) 0.2, Neutrophils # (Auto) 4.09, Lymphocytes # (Auto) 0.99, Monocytes # (Auto) 0.55, Eosinophils # (Auto) 0.04, Basophils # (Auto) 0.01 Test 02/01/17 10:08 02/01/17 11:30 White Blood Count 5.69 K/uL (4.8-10.8) Red Blood Count 4.61 M/uL (4.7-6.1) Hemoglobin 14.9 g/dL (14.0-18.0) Hematocrit 43.9 % (42-52) Mean Corpuscular Volume 95.2 fL (80-100) Mean Corpuscular Hemoglobin 32.3 pg (25-34) Mean Corpuscular Hemoglobin Concent 33.9 g/dl (32-36) Platelet Count 154 K/uL (130-400) Mean Platelet Volume 9.2 fL (7.4-10.4) Neutrophils (%) (Auto) 71.8 % Lymphocytes (%) (Auto) 17.4 % Monocytes (%) (Auto) 9.7 % Eosinophils (%) (Auto) 0.7 % Basophils (%) (Auto) 0.2 % Neutrophils # (Auto) 4.09 K/uL (1.4-6.5) Lymphocytes # (Auto) 0.99 K/uL (1.2-3.4) Monocytes # (Auto) 0.55 K/uL (0.11-0.59) Eosinophils # (Auto) 0.04 K/uL (0-0.5) Basophils # (Auto) 0.01 K/uL (0-0.2) RDW Standard Deviation 45.8 fL (36.4-46.3) RDW Coefficient of Variation 13.1 % (11.5-14.5) Immature Granulocyte % (Auto) 0.2 % Immature Granulocyte # (Auto) 0.01 K/uL (0.00-0.02) Magnesium Level 2.0 mg/dl (1.8-2.4) Total Bilirubin 0.5 mg/dl (0.2-1) Direct Bilirubin 0.2 mg/dl (0-0.2) Aspartate Amino Transf (AST/SGOT) 16 U/L (15-37) Alanine Aminotransferase (ALT/SGPT) 18 U/L (12-78) Alkaline Phosphatase 138 U/L (45-117) Total Creatine Kinase 82 U/L (39-308) Total Protein 7.4 gm/dl (6.4-8.2) Albumin 3.9 gm/dl (3.4-5.0) Thyroid Stimulating Hormone (TSH) 0.671 uIu/ml (0.300-4.500) Lamotrigine (Lamictal) Level 14.6 mcg/mL (4.0-18.0) Urine WBC (Auto) 0 /hpf (0-5) Urine RBC (Auto) 0-4 /hpf (0-4) Urine Hyaline Casts (Auto) 0 /lpf (0-5) Urine Epithelial Cells (Auto) 0-5 /lpf (0-5) Urine Bacteria (Auto) NEG (NEG) Laboratory results per my review. Medications Administered Medications (Trade) Dose Ordered Sig/Hugh Route Start Time Stop Time Status Last Admin Dose Admin Sodium Chloride 500 ml @ 999 mls/hr Q31M STAT IV 02/01/17 09:54 02/01/17 10:24 DC 02/01/17 11:00 999 MLS/HR Sodium Chloride 1,000 ml @ 200 mls/hr Q5H STAT IV 02/01/17 09:54 02/01/17 14:53 DC 02/01/17 11:30 200 MLS/HR ECG Indication: weakness Rate (beats per minute): 55 Rhythm: sinus bradycardia Findings: other (diffuse T wave flattening/inversion in lateral leads) Comparison ECG Date: new T-wave invesion in lateral leads from December 2013 ED Course 0950: Past medical records reviewed. The patient was evaluated in room B11B. A complete history and physical examination was performed. 0954: Ordered Sodium Chloride 1,000 ml @ 200 mls/hr IV, Sodium Chloride 500 ml @ 999 mls/hr IV. 1030: I checked on the patient. 1139: Upon reevaluation, the patient is resting comfortably. I discussed laboratory and radiographic results with his caregiver and father. His caregiver and father verbalized agreement of the treatment plan. The patient will be evaluated for further management and care. Medical Decision Differential diagnosis: Etiologies such as metabolic, infection, hypo/hyperglycemia, electrolyte abnormalities, cardiac sources, intracerebral event, toxicologic, neurologic, as well as others were entertained. This pt was evaluated and appeared to be in no distress. IV access was obtained and lab work was drawn. Pt was placed on the conveyor monitor. CT head was performed and is negative for acute IC abnl. KUB is negative for obstruction and FA. IVF were initiated. Lab work is relatively unrevealing. UA is + for urobilinogen and LE, but cell counts are normal. VSS, pt is afebrile. I suspect this encephalopathy is r/t polypharmacy. He will be evaluated by the hospitalist service for further management. Medication Reconcilliation Current Medication List: was personally reviewed by me Blood Pressure Screening Patient's blood pressure: Normal blood pressure Consults Time Called: [id number] Consulting Physician: Dr. Saleh- [place] Returned Call: [phone] I reviewed the patient's case with Dr. Saleh. He will evaluate the patient for further management. Impression Primary Impression: Altered mental status Additional Impression: Acute electrocardiogram changes Scribe Attestation The scribe's documentation has been prepared under my direction and personally reviewed by me in its entirety. I confirm that the note above accurately reflects all work, treatment, procedures, and medical decision making performed by me. Departure Information Dispostion Being Evaluated By Hospitalist Referrals Jose Juan Brady M.D. (PCP) Patient Instructions My [facility] Problem Qualifiers
[2017-02-01 10:24] LABS: BASO % 0.2 %; BASO ABS # 0.01 K/uL (0-0.2); COMPLETE YES; EOS % 0.7 %; HEMATOCRIT 43.9 % (42-52); IG% 0.2 %; LYMPH % 17.4 %; LYMPH ABS # 0.99 K/uL (1.2-3.4); MEAN CELL VOLUME 95.2 fL (80-100); MEAN CORPUSCULAR HEMOGLOBIN 32.3 pg (25-34); MEAN CORPUSCULAR HGB CONC 33.9 g/dl (32-36); MEAN PLATELET VOLUME 9.2 fL (7.4-10.4); MONO % 9.7 %; NEUT % 71.8 %; PLATELET COUNT 154 K/uL (130-400); RED BLOOD COUNT 4.61 M/uL (4.7-6.1); WHITE BLOOD COUNT 5.69 K/uL (4.8-10.8)
[2017-02-01 10:33] LABS: BUN/CREATININE RATIO 12.3 (10-20); CALCIUM 8.8 mg/dl (8.5-10.1); CREATININE 0.94 mg/dl (0.60-1.40); POTASSIUM 3.7 mmol/L (3.5-5.1)
--- NOTE | 2017-02-01 10:34 | DIAGNOSTIC IMAGING REPORT ---
CHEST ONE VIEW PORTABLE CLINICAL HISTORY: AMS dyspnea. Vomiting. COMPARISON STUDY: 12/16/2016 FINDINGS: Mild stable cardia megaly. Chronic left and to lesser extent right basilar atelectasis. Mid and upper lungs are considered clear. No evidence pneumothorax. Scoliosis of the thoracolumbar spine. IMPRESSION: 1. Chronic atelectatic change left and to a lesser extent right base. 2. Mild stable cardiomegaly. 3. Otherwise negative study. The above report was generated using voice recognition software. It may contain grammatical, syntax or spelling errors. Electronically signed by: Rosendo Liang M.D. 02/01/2017 10:33 AM Dictated Date/Time: 02/01/2017 10:32 AM
[2017-02-01] MEDS ORDERED: HYDR25SU20 PR (10:37)
[2017-02-01 10:44] LABS: THYROID STIMULATING HORMONE 0.671 uIu/ml (0.300-4.500)
--- NOTE | 2017-02-01 10:49 | DIAGNOSTIC IMAGING REPORT ---
HEAD WITHOUT CONTRAST (CT) CT DOSE: 638.56 mGycm HISTORY: Mental status change AMS TECHNIQUE: Multiaxial CT images of the head were performed without the use of intravenous contrast. A dose lowering technique was utilized adhering to the principles of ALARA. Comparison: 01/23/2017 Findings: The paranasal sinuses and mastoid air cells are clear. The calvarium and skull base are intact. The ventricles and sulci are within normal limits. There is no mass, hematoma, midline shift, or acute infarct. Impression: No acute intracranial abnormality. The above report was generated using voice recognition software. It may contain grammatical, syntax or spelling errors. Electronically signed by: Rosendo Liang M.D. 02/01/2017 10:48 AM Dictated Date/Time: 02/01/2017 10:46 AM
--- NOTE | 2017-02-01 10:52 | DIAGNOSTIC IMAGING REPORT ---
KUB CLINICAL HISTORY: vomiting, AMS nausea. Vomiting. COMPARISON STUDY: 05/22/2015 FINDINGS: The soft tissues, psoas shadows, renal outlines and intestinal gas pattern appear normal. There is no evidence for bowel obstruction. No abnormal abdominal calcifications are seen. Prior cholecystectomy. Old fracture anterior right 10th rib IMPRESSION: No acute process. The above report was generated using voice recognition software. It may contain grammatical, syntax or spelling errors. Electronically signed by: Rosendo Liang M.D. 02/01/2017 10:51 AM Dictated Date/Time: 02/01/2017 10:50 AM
[2017-02-01 11:49] LABS: URINE APPEARANCE CLEAR (CLEAR); URINE BILIRUBIN NEG (NEG); URINE COLOR DK YELLOW; URINE EPITHELIAL CELL AUTO 0-5 /lpf (0-5); URINE NITRITE NEG (NEG); URINE SPECIFIC GRAVITY 1.026 (1.000-1.030); UROBILINOGEN POS (NEG); ZZUR CULT IF INDIC CLEAN CATCH NO
[2017-02-01 11:58] LABS: MANUAL MICROSCOPIC REQUIRED? NO; REVIEW REQ? NO
[2017-02-01] MEDS ORDERED: POLYETHYLENE (MIRALAX) 17 GM PACK PO PRN (12:30)
[2017-02-01] MEDS ORDERED: MAGNESIUM HYDROXIDE SUSP 30 ML UDC PO PRN (12:30)
[2017-02-01] MEDS ORDERED: ALUMINUM/MAGNESIUM/SIMETH (MAALOX MAX) 30 ML UDC PO PRN (12:30)
[2017-02-01] MEDS ORDERED: ACETAMINOPHEN 325 MG TAB PO PRN (12:30)
[2017-02-01] MEDS ORDERED: ONDANSETRON INJ 2 MG/ML 2 ML VIAL IV PRN (12:30)
--- NOTE | 2017-02-01 12:59 | History and Physical ---
History & Physical Date & Time of Service: Feb 01, 2017 at 12:36 Chief Complaint: Illness Primary Care Physician: Jose Juan Brady M.D. History of Present Illness Source: patient 51 y/o M Hx MR and seizure disorder. Pt resides in a correction but maintains a degree of independence and works daily. The pt had a few breakthrough seizures over the pat 2 months and has had his medication doses - including Gabapentin, Lamictal and Vimpat. Per his caretakers, since his medication increases, he has developed daytime somnolence, difficulty with balance and coordination, tremors, irritability and a poor appetite. The pt had fallen and sustained minor head trauma a few days prior. He cannot currently maintain his balance or perform his normal daily routines and was additionally difficult to wake this AM. The pt is somnolent at the time of admission and cannot provide information personally. The above is obtained for a attendant coin operated laundry at bedside. There are no reports of fevers, SOB, CP, N/V, diarrhea or dysuria. Initial labs do not reveal any acute abnormalities. Initial CT is negative for ICH. Past Medical/Surgical History 1) MR 2) Seizure disorder Family History Heart disease Hypertension Kidney disease Social History Smoking Status: Never Smoker Drug Use: none Marital Status: single Housing status: other Occupational Status: disabled Immunizations History of Influenza Vaccine: N/A Influenza Vaccine Date: Nov 03, 2009 History of Tetanus Vaccine?: Yes Tetanus Immunization Date: Jun 04, 2007 History of Pneumococcal: No History of Hepatitis B Vaccine: Unknown Hepatitis Immunization Date: Jun 04, 2007 Allergies Coded Allergies: Sulfamethoxazole w/Trimethoprim (Verified Allergy, Unknown, dizziness and increase in tremor, 02/01/17) Grapefruit (Verified Adverse Reaction, Unknown, INTERACTS WITH OTHER MEDS , 02/01/17) Ibuprofen (Verified Adverse Reaction, Unknown, avoids secondary to reactions with other medications, 01/23/17) Levetiracetam (Verified Adverse Reaction, Unknown, AGITATION, 02/01/17) Home Medications Scheduled Buspirone Hcl (Buspar), 15 MG PO QAM Buspirone Hcl (Buspar), 30 MG PO HS Carbamide Peroxide (Otic) (Debrox), 5-10 DROPS OT UD Clobazam (Onfi), 5 MG PO BID Docusate Sodium (Colace), 100 MG PO BID Felbamate (Felbamate), 600 MG PO BID Fluoxetine Hcl (Prozac), 20 MG PO DAILY Gabapentin (Neurontin), 300 MG PO QAM Gabapentin (Neurontin), 600 MG PO PM Lacosamide (Vimpat), 200 MG PO BID Lamotrigine (Lamotrigine Er), 100 MG PO BID Lamotrigine (Lamotrigine Er), 200 MG PO BID Lamotrigine (Lamictal), 25 MG PO BID Multiple Vitamins W/ Minerals (Preservision Areds 2), 2 CAP PO QAM Omeprazole (Prilosec), 20 MG PO QAM Propranolol Hcl (Propranolol Hcl Er), 80 MG PO BID Sennosides-Docusate Sodium (Senokot S), 1 TAB PO DAILY Scheduled PRN Acetaminophen (Tylenol), 650 MG PO Q6 PRN for F/CHACKO/P Alum & Mag Hydrox-Simethicone (Mylanta), 30 ML PO Q6H PRN for Upset Stomach/ Vomiting Dextromethorphan Polistirex (Delsym), 10 ML PO Q12 PRN for Cough Hydrocortisone Acetate (Rectal (Anusol-Hc), 25 MG NJ Q6 PRN for Hemorrhoids Loperamide Hcl (Imodium A-D), 4 MG PO UD PRN for Diarrhea Magnesium Hydroxide (Milk Of Magnesia), 30 ML PO UD PRN for Constipation Neomycin/Polymyx/Bacitr (Neosporin), 1 APPL TOP BID PRN for CUTS,SCRAPES, ABRASIONS Review of Systems Cannot obtain from pt brought in for loss of balance, loss of appetite, irritability, somnolence as above Physical Exam Vital Signs Date Time Temp Pulse Resp B/P (MAP) Pulse Ox O2 Delivery O2 Flow Rate FiO2 02/01/17 12:30 52 18 112/75 95 Room Air 02/01/17 12:00 54 18 128/71 95 Room Air 02/01/17 11:05 54 20 109/84 95 Room Air 02/01/17 09:34 36.6 54 20 135/90 94 Room Air 02/01/17 09:27 54 General Appearance: WD/WN, no apparent distress, + pertinent finding (Somnolent , middle-aged male - no distress - does not respond to questions currently) Head: normocephalic Eyes: normal inspection ENT: normal ENT inspection, pharynx normal Neck: supple, no JVD Respiratory/Chest: chest non-tender, lungs clear, normal breath sounds Cardiovascular: regular rate, rhythm Abdomen/GI: normal bowel sounds, non tender, soft Back: normal inspection, no CVA tenderness Extremities/Musculoskelatal: normal inspection, no calf tenderness, normal capillary refill Neurologic/Psych: + pertinent finding (Pt is somnolent - responds to tactile stim - pupils are equal - moves all extrems - no resting tremor is currently noted) Skin: normal color, warm/dry, no rash Diagnostics Laboratory Results Results Past 24 Hours Test 02/01/17 10:08 02/01/17 11:30 Range/Units White Blood Count 5.69 4.8-10.8 K/uL Red Blood Count 4.61 4.7-6.1 M/uL Hemoglobin 14.9 14.0-18.0 g/dL Hematocrit 43.9 42-52 % Mean Corpuscular Volume 95.2 80-100 fL Mean Corpuscular Hemoglobin 32.3 25-34 pg Mean Corpuscular Hemoglobin Concent 33.9 32-36 g/dl Platelet Count 154 130-400 K/uL Mean Platelet Volume 9.2 7.4-10.4 fL Neutrophils (%) (Auto) 71.8 % Lymphocytes (%) (Auto) 17.4 % Monocytes (%) (Auto) 9.7 % Eosinophils (%) (Auto) 0.7 % Basophils (%) (Auto) 0.2 % Neutrophils # (Auto) 4.09 1.4-6.5 K/uL Lymphocytes # (Auto) 0.99 1.2-3.4 K/uL Monocytes # (Auto) 0.55 0.11-0.59 K/uL Eosinophils # (Auto) 0.04 0-0.5 K/uL Basophils # (Auto) 0.01 0-0.2 K/uL RDW Standard Deviation 45.8 36.4-46.3 fL RDW Coefficient of Variation 13.1 11.5-14.5 % Immature Granulocyte % (Auto) 0.2 % Immature Granulocyte # (Auto) 0.01 0.00-0.02 K/uL Sodium Level 139 136-145 mmol/L Potassium Level 3.7 3.5-5.1 mmol/L Chloride Level 104 98-107 mmol/L Carbon Dioxide Level 34 21-32 mmol/L Anion Gap 1.0 3-11 mmol/L Blood Urea Nitrogen 11 7-18 mg/dl Creatinine 0.94 0.60-1.40 mg/dl Est Creatinine Clear Calc Drug Dose 103.9 ml/min Estimated GFR () 107.6 Estimated GFR (Non- 92.8 BUN/Creatinine Ratio 12.3 10-20 Random Glucose 94 70-99 mg/dl Calcium Level 8.8 8.5-10.1 mg/dl Magnesium Level 2.0 1.8-2.4 mg/dl Total Bilirubin 0.5 0.2-1 mg/dl Direct Bilirubin 0.2 0-0.2 mg/dl Aspartate Amino Transf (AST/SGOT) 16 15-37 U/L Alanine Aminotransferase (ALT/SGPT) 18 12-78 U/L Alkaline Phosphatase 138 45-117 U/L Total Creatine Kinase 82 39-308 U/L Total Protein 7.4 6.4-8.2 gm/dl Albumin 3.9 3.4-5.0 gm/dl Thyroid Stimulating Hormone (TSH) 0.671 0.300-4.500 uIu/ml Urine Color DK YELLOW Urine Appearance CLEAR CLEAR Urine pH 6.0 4.5-7.5 Urine Specific [place] 1.026 1.000-1.030 Urine Protein NEG NEG Urine Glucose (UA) NEG NEG Urine Ketones NEG NEG Urine Occult Blood NEG NEG Urine Nitrite NEG NEG Urine Bilirubin NEG NEG Urine Urobilinogen POS NEG Urine Leukocyte Esterase TRACE NEG Urine WBC (Auto) 0 0-5 /hpf Urine RBC (Auto) 0-4 0-4 /hpf Urine Hyaline Casts (Auto) 0 0-5 /lpf Urine Epithelial Cells (Auto) 0-5 0-5 /lpf Urine Bacteria (Auto) NEG NEG Diagnostic Radiology No acute findings on head CT EKG There are T wave inversion in majority of leads which were not present previously - no evidence of acute ischemia is present Impression Assessment and Plan 51 y/o M Hx MR and seizure disorder. Pt resides in a correction but maintains a degree of independence and works daily. The pt had a few breakthrough seizures over the pat 2 months and has had his medication doses - including Gabapentin, Lamictal and Vimpat. Per his caretakers, since his medication increases, he has developed daytime somnolence, difficulty with balance and coordination, tremors, irritability and a poor appetite. The pt had fallen and sustained minor head trauma a few days prior. He cannot currently maintain his balance or perform his normal daily routines and was additionally difficult to wake this AM. 1) Ataxia - AMS - tremor - likely the result of his medication increases. We will hold his meds and restart PM at 50% of initial to avoid withdrawal seizures. We will request a neurology consult to determine dosages or advise on any substitutions going forward. He will be monitored on telemetry, provided with IVF and placed on fall precautions in the interim. 2) Seizure disorder - as mentioned, his med dosages have been decreased - we will place him on telemetry and Ativan will be provided for any breakthrough seizures as his medications are being adjusted. 3) An EKG shows T wave inversions in most leads - unclear if this is a medication effect - no cardiac symptoms or lab correlations are noted - will repeat AM - he has been assigned to telemetry. Full code - SCDs Total time for this admit including review of labs, meds, imaging - Discussion with pt's attendant coin operated laundry and ER attending - 38 min Level of Care Telemetry Resuscitation Status FULL RESUSCITATION VTE Prophylaxis VTE Risk Assessment Done? Y/N: Yes Risk Level: Low Given or contraindicated: SCD's
[2017-02-01] MEDS ORDERED: IV FLUIDS COMPLETED PRN (13:30)
[2017-02-01 14:00] VITALS: BP 138/76; PULSE 64; TEMP 36.5; O2SAT 96; Ht 182.9 cm; Wt 91.1 kg
[2017-02-01] MEDS: D5NSS + 20MEQ KCL 1,000 ML IV SCH ×2 (14:30→22:43)
[2017-02-01 15:31] VITALS: BP 129/90; PULSE 80; TEMP 36.6; O2SAT 94
[2017-02-01 19:28] VITALS: BP 115/73; PULSE 52; TEMP 36.4; O2SAT 97
[2017-02-01] MEDS ORDERED: LORAZEPAM 2 MG/ML 1 ML VIAL IV PRN (19:45)
[2017-02-01] MEDS: FELBAMATE 600 MG PO SCH (20:09)
[2017-02-01] MEDS: DOCUSATE SODIUM 100 MG CAP PO SCH (20:12)
[2017-02-01] MEDS: BusPIRone 15 MG TAB PO SCH (20:12)
[2017-02-01] MEDS: LACOSAMIDE 50 MG TAB PO SCH (20:14)
[2017-02-01] MEDS ORDERED: LACOSAMIDE 200 MG PO SCH (21:00)
[2017-02-01] MEDS ORDERED: LACOSAMIDE 100 MG TAB PO SCH (21:00)
[2017-02-01 21:50] VITALS: BP 129/82; PULSE 61
[2017-02-01] MEDS: PROPRANOLOL HCL 80 MG LA CAP PO SCH (21:54)
[2017-02-01] MEDS ORDERED: NURSING VERBAL MED ORDER ONE (23:00)
[2017-02-01 23:50] VITALS: BP 113/62; PULSE 55; TEMP 36.5; O2SAT 94
[2017-02-02] VITALS (8 sets, daily range): BP systolic 95–132; BP diastolic 63–77; PULSE 50–56; TEMP 36.2–36.9; O2SAT 94–97
[2017-02-02] MEDS ORDERED: NURSING VERBAL MED ORDER ONE (04:30)
[2017-02-02] MEDS: PANTOprazole SOD 40 MG TAB PO SCH (08:19)
[2017-02-02] MEDS: BusPIRone 15 MG TAB PO SCH ×2 (08:19→20:51)
[2017-02-02] MEDS: DOCUSATE SODIUM 100 MG CAP PO SCH ×2 (08:19→20:52)
[2017-02-02] MEDS: FLUOXETINE HCL 20 MG CAP PO SCH (08:19)
[2017-02-02] MEDS: DOCUSATE SODIUM/SENNA 50/8.6MG TAB PO SCH (08:19)
[2017-02-02] MEDS: LACOSAMIDE 50 MG TAB PO SCH ×2 (08:20→20:49)
[2017-02-02] MEDS: FELBAMATE 600 MG PO SCH ×2 (08:29→21:10)
[2017-02-02] MEDS: CLOBAZAM 10MG TABLET PO SCH ×2 (08:32→20:49)
[2017-02-02] MEDS ORDERED: LAMOTRIGINE 100 MG PO SCH ×3 (09:00→21:00)
--- NOTE | 2017-02-02 09:23 | Neurology Consultation ---
Neurology Consultation Date of Consultation: Feb 02, 2017. Attending Physician: Vamsi Uribe MD Primary Care Physician: Jose Juan Brady M.D. 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 Hernandez for several years. The patient continues to experience brief, episodic staring spells with associated altered awareness, several times per month, in spite of taking various combinations of a variety of anticonvulsants over many years. His current anticonvulsant regimen is extensive and complex and includes Onfi 5 mg twice a day, felbamate 600 mg twice a day gabapentin 300 mg in the morning, 600 mg in the evening, Vimpat 200 mg twice a day, and Lamictal 325 mg twice a day. The patient presents with an altered mental status characterized by inability to get dressed and being less talkative than usual. He also has had some problems standing up on his own, nausea, vomiting, and weight loss recently. These symptoms have been attributed to some adjustments in his anticonvulsant regimen recently including an increased dosage of gabapentin and Lamictal. A CT of the head obtained upon presentation was negative for hemorrhage or other acute process. An electrocardiogram revealed sinus bradycardia, 55 bpm. The patient has been admitted for further evaluation and management of his altered mental status. His Lamictal and gabapentin dosages have been decreased. Past Medical/Surgical History Medical Problems: (1) Abdominal pain Status: Acute (2) Acute electrocardiogram changes Status: Acute (3) Altered mental status Status: Acute (4) Change in mental status Status: Acute (5) Closed head injury Status: Acute (6) Closed head injury Status: Acute (7) Closed head injury Status: Acute (8) Closed head injury Status: Acute (9) Contusion of lower back Status: Acute (10) Contusion of occipital region of scalp Status: Acute (11) Degenerative arthritis of cervical spine Status: Acute (12) Lnbtanpgwn-nxnzurr-fgealmtev (DTP) vaccination Status: Acute (13) Fall Status: Acute (14) Fall Status: Acute (15) Fall Status: Acute (16) Fall Status: Acute (17) Fall Status: Acute (18) Fall Status: Acute (19) Fall Status: Acute (20) Fall Status: Acute (21) Fall Status: Acute (22) Fall from bed Status: Acute (23) Head injury, closed Status: Acute (24) Hemorrhoids Status: Acute (25) Laceration of scalp Status: Acute (26) Medication reaction Status: Acute (27) Muscle tremor Status: Acute (28) Pneumonia Status: Acute (29) Seizure Status: Acute (30) Seizure Status: Acute (31) Weakness Status: Acute (32) Weakness Status: Acute Family History Family history notable for coronary artery disease and hypertension Social History Smoking Status: Former smoker Drug Use: none Marital Status: single Housing Status: assisted living Occupation Status: disabled Allergies Coded Allergies: Sulfamethoxazole w/Trimethoprim (Verified Allergy, Unknown, dizziness and increase in tremor, 02/01/17) Grapefruit (Verified Adverse Reaction, Unknown, INTERACTS WITH OTHER MEDS , 02/01/17) Ibuprofen (Verified Adverse Reaction, Unknown, avoids secondary to reactions with other medications, 01/23/17) Levetiracetam (Verified Adverse Reaction, Unknown, AGITATION, 02/01/17) Current Inpatient Medications Current Inpatient Medications Medications (Trade) Dose Ordered Sig/Hugh Route Start Time Stop Time Status Last Admin Dose Admin Acetaminophen (Tylenol Tab) 650 mg Q4H PRN PO 02/01/17 12:30 03/03/17 12:29 Al Hydrox/Mg Hydrox/Simethicone (Maalox Max Susp) 15 ml Q4H PRN PO 02/01/17 12:30 03/03/17 12:29 Magnesium Hydroxide (Milk Of Magnesia Susp) 30 ml Q12H PRN PO 02/01/17 12:30 03/03/17 12:29 Ondansetron HCl (Zofran Inj) 4 mg Q6H PRN IV 02/01/17 12:30 03/03/17 12:29 Polyethylene (Miralax Powder Packet) 17 gm DAILY PRN PO 02/01/17 12:30 03/03/17 12:29 Buspirone HCl (BusPAR TAB) 15 mg QAM PO 02/02/17 09:00 03/04/17 08:59 02/02/17 08:19 15 MG Buspirone HCl (BusPAR TAB) 30 mg HS PO 02/01/17 21:00 03/03/17 20:59 02/01/17 20:12 30 MG Docusate Sodium (coLACE CAP) 100 mg BID PO 02/01/17 21:00 03/03/17 20:59 02/02/17 08:19 100 MG Fluoxetine HCl (Prozac Cap) 20 mg DAILY PO 02/02/17 09:00 03/04/17 08:59 02/02/17 08:19 20 MG Propranolol HCl (Inderal LA Cap) 80 mg BID PO 02/01/17 21:00 03/03/17 20:59 02/01/17 21:54 80 MG Senna/Docusate Sodium (Senokot S Tab) 1 tab DAILY PO 02/02/17 09:00 03/04/17 08:59 02/02/17 08:19 1 TAB Pantoprazole Sodium (Protonix Tab) 40 mg QAM PO 02/02/17 09:00 03/04/17 08:59 02/02/17 08:19 40 MG Gabapentin (Neurontin Cap) 100 mg TID PO 02/02/17 14:00 03/04/17 13:59 Miscellaneous (Iv Fluids Completed) 1 ea PRN PRN N/A 02/01/17 13:30 02/01/18 13:29 Lacosamide (Vimpat Tab) 200 mg BID PO 02/01/17 21:00 03/03/17 20:59 02/02/17 08:20 200 MG Felbamate (Felbatol) 600 mg BID PO 02/01/17 21:00 03/03/17 20:59 02/02/17 08:29 600 MG Lorazepam (Ativan Inj) 4 mg PRN PRN IV 02/01/17 19:45 03/03/17 19:44 Clobazam (Onfi) 5 mg BID PO 02/02/17 09:00 03/04/17 08:59 02/02/17 08:32 5 MG Lamotrigine (Lamictal Xr) 100 mg QAM PO 02/02/17 09:00 03/04/17 08:59 02/02/17 08:30 100 MG Lamotrigine (Lamictal Xr) 100 mg PM PO 02/02/17 21:00 03/04/17 20:59 Review of Systems Constitutional: No headache fever or chills Eyes: No vision loss or diplopia ENT: No vertigo or hearing loss Neurological: As per history of present illness Gastrointestinal: As per history of present illness A full 10 point review of systems was obtained from this patient with pertinent positives and negatives described in the history of present illness and otherwise listed above. All remaining systems reviewed and are negative. Physical Exam Vital Signs (Past 24 Hrs): Date Time Temp Pulse Resp B/P (MAP) Pulse Ox O2 Delivery O2 Flow Rate FiO2 02/02/17 07:35 36.7 54 16 106/64 (78) 94 Room Air 02/02/17 04:00 36.5 56 18 132/71 (91) 96 Room Air 02/02/17 04:00 Room Air 02/02/17 00:00 Room Air 02/01/17 23:50 36.5 55 18 113/62 (79) 94 Room Air 02/01/17 21:50 61 129/82 (98) 02/01/17 20:03 Room Air 02/01/17 19:28 36.4 52 20 115/73 (87) 97 Room Air 02/01/17 16:00 Room Air 02/01/17 15:31 36.6 80 18 129/90 (103) 94 Room Air 02/01/17 14:00 36.5 64 18 138/76 96 Room Air 02/01/17 13:11 54 20 93/50 97 02/01/17 12:48 54 02/01/17 12:30 52 18 112/75 95 Room Air 02/01/17 12:00 54 18 128/71 95 Room Air 02/01/17 11:05 54 20 109/84 95 Room Air 02/01/17 09:34 36.6 54 20 135/90 94 Room Air 02/01/17 09:27 54 The patient is a well-developed, well-nourished, middle-aged male. He is sitting up in bed eating breakfast. The patient is alert and oriented to person and hospital only. Recent and remote memory are impaired. Attention and concentration are impaired. Patient exhibits minimal spontaneous speech. He is able to name objects and repeat phrases. Patient exhibits a limited fund of knowledge although normal vocabulary. Visual clifford full to confrontation. Visual acuity normal. Pupils equal round reactive to light and accommodation. Eye movements normal. Facial sensation intact. There is normal facial symmetry and strength. Hearing intact to finger rub bilaterally. Palate elevates to midline. Shoulder shrug strength intact bilaterally. Tongue protrudes to midline. There are no lingual lacerations. Sensation intact to light touch, temperature, vibration, and proprioception for all 4 limbs. Deep tendon reflexes are intact and symmetrical for the arms and legs bilaterally. Plantar responses downgoing bilaterally. There is dysmetria with finger to nose and heel to ewing bilaterally. Ophthalmoscopic examination reveals normal-appearing optic disks and posterior segments. No papilledema or hemorrhages. Carotid pulses normal bilaterally. Gait and station cannot be tested due to safety concerns. Muscle strength normal for all 4 limbs. Muscle tone normal throughout. No atrophy. Patient exhibits a fairly significant bilateral upper extremity postural and action tremor. He has associated intention tremor with finger to nose bilaterally as well. Laboratory Results Past 24 Hours: 02/01/17 10:08 Red Blood Count 4.61, Mean Corpuscular Volume 95.2, Mean Corpuscular Hemoglobin 32.3, Mean Corpuscular Hemoglobin Concent 33.9, Mean Platelet Volume 9.2, Neutrophils (%) (Auto) 71.8, Lymphocytes (%) (Auto) 17.4, Monocytes (%) (Auto) 9.7, Eosinophils (%) (Auto) 0.7, Basophils (%) (Auto) 0.2, Neutrophils # (Auto) 4.09, Lymphocytes # (Auto) 0.99, Monocytes # (Auto) 0.55, Eosinophils # (Auto) 0.04, Basophils # (Auto) 0.01 02/01/17 10:08 Test 02/01/17 10:08 02/01/17 11:30 White Blood Count 5.69 K/uL (4.8-10.8) Red Blood Count 4.61 M/uL (4.7-6.1) Hemoglobin 14.9 g/dL (14.0-18.0) Hematocrit 43.9 % (42-52) Mean Corpuscular Volume 95.2 fL (80-100) Mean Corpuscular Hemoglobin 32.3 pg (25-34) Mean Corpuscular Hemoglobin Concent 33.9 g/dl (32-36) Platelet Count 154 K/uL (130-400) Mean Platelet Volume 9.2 fL (7.4-10.4) Neutrophils (%) (Auto) 71.8 % Lymphocytes (%) (Auto) 17.4 % Monocytes (%) (Auto) 9.7 % Eosinophils (%) (Auto) 0.7 % Basophils (%) (Auto) 0.2 % Neutrophils # (Auto) 4.09 K/uL (1.4-6.5) Lymphocytes # (Auto) 0.99 K/uL (1.2-3.4) Monocytes # (Auto) 0.55 K/uL (0.11-0.59) Eosinophils # (Auto) 0.04 K/uL (0-0.5) Basophils # (Auto) 0.01 K/uL (0-0.2) RDW Standard Deviation 45.8 fL (36.4-46.3) RDW Coefficient of Variation 13.1 % (11.5-14.5) Immature Granulocyte % (Auto) 0.2 % Immature Granulocyte # (Auto) 0.01 K/uL (0.00-0.02) Anion Gap 1.0 mmol/L (3-11) Est Creatinine Clear Calc Drug Dose 103.9 ml/min Estimated GFR () 107.6 Estimated GFR (Non- 92.8 BUN/Creatinine Ratio 12.3 (10-20) Calcium Level 8.8 mg/dl (8.5-10.1) Magnesium Level 2.0 mg/dl (1.8-2.4) Total Bilirubin 0.5 mg/dl (0.2-1) Direct Bilirubin 0.2 mg/dl (0-0.2) Aspartate Amino Transf (AST/SGOT) 16 U/L (15-37) Alanine Aminotransferase (ALT/SGPT) 18 U/L (12-78) Alkaline Phosphatase 138 U/L (45-117) Total Creatine Kinase 82 U/L (39-308) Total Protein 7.4 gm/dl (6.4-8.2) Albumin 3.9 gm/dl (3.4-5.0) Thyroid Stimulating Hormone (TSH) 0.671 uIu/ml (0.300-4.500) Urine Color DK YELLOW Urine Appearance CLEAR (CLEAR) Urine pH 6.0 (4.5-7.5) Urine Specific [place] 1.026 (1.000-1.030) Urine Protein NEG (NEG) Urine Glucose (UA) NEG (NEG) Urine Ketones NEG (NEG) Urine Occult Blood NEG (NEG) Urine Nitrite NEG (NEG) Urine Bilirubin NEG (NEG) Urine Urobilinogen POS (NEG) Urine Leukocyte Esterase TRACE (NEG) Urine WBC (Auto) 0 /hpf (0-5) Urine RBC (Auto) 0-4 /hpf (0-4) Urine Hyaline Casts (Auto) 0 /lpf (0-5) Urine Epithelial Cells (Auto) 0-5 /lpf (0-5) Urine Bacteria (Auto) NEG (NEG) Impression This 51 year old male with intellectual disabilities, refractory epilepsy, and a moderate to severe, chronic, ataxic tremor who presents with subacute confusion potentially related to dosage increases of some of his anticonvulsants. Plan I agree with reducing his dosage of gabapentin to 100 mg 3 times per day I would change this patient's Lamictal to 300 mg twice daily He may continue with the current dosages of Onfi, felbamate, and Vimpat. Outpatient follow-up with Dr. Hernandez Please contact me if I may be of further assistance
[2017-02-02] MEDS: PROPRANOLOL HCL 80 MG LA CAP PO SCH ×2 (09:26→20:52)
--- NOTE | 2017-02-02 14:10 | Hospitalist Progress Note ---
Hospitalist Progress Note Date of Service Feb 02, 2017. (Whit Sparrow .JOSE) Subjective Pt evaluation today including: conversation w/ patient, physical exam, chart review, lab review, review of studies, review of inpatient medication list Voiding: incontinence Mr. Chatman is awake and alert. He says his tremors are bad enough that he is not able to feed himself and while talking he is having full body tremors that wax and wane. His mother reports that these tremors have been increasing over the past two years and that he has received botox injections in his neck and hands which did not seem to help much. She does feel that the increased medications made it worse. During exam patient stopped answering my questions and began to have increased convulsions concerning for seizure activity but after asking him to respond to me a few times he did. His mother mentioned that he does that sometimes when he is anxious. Per nursing he was incontinent of a large amount of urine over the night. ROS Constitutional: no chills, aches, sweats or fever Respiratory: no sob,cough, sputum, or wheezing Cardiac: no chest pain, palpitations, edema, orthopnea or lightheadedness GI: no abdominal pain, nausea, vomiting, diarrhea or constipation : see HPI Extremities: no joint pain or weakness Skin: no rash All Other Systems: Reviewed and Negative (Whit Sparrow .JOSE) Medications Medications Administered Medications (Trade) Dose Ordered Sig/Hugh Route Start Time Stop Time Status Last Admin Dose Admin Sodium Chloride 500 ml @ 999 mls/hr Q31M STAT IV 02/01/17 09:54 02/01/17 10:24 DC 02/01/17 11:00 999 MLS/HR Sodium Chloride 1,000 ml @ 200 mls/hr Q5H STAT IV 02/01/17 09:54 02/01/17 14:53 DC 02/01/17 11:30 200 MLS/HR Potassium Chloride/Dextrose/ Sod Cl 1,000 ml @ 125 mls/hr Q8H IV 02/01/17 14:00 02/02/17 04:26 DC 02/01/17 22:43 125 MLS/HR Buspirone HCl (BusPAR TAB) 15 mg QAM PO 02/02/17 09:00 03/04/17 08:59 02/02/17 08:19 15 MG Buspirone HCl (BusPAR TAB) 30 mg HS PO 02/01/17 21:00 03/03/17 20:59 02/01/17 20:12 30 MG Docusate Sodium (coLACE CAP) 100 mg BID PO 02/01/17 21:00 03/03/17 20:59 02/02/17 08:19 100 MG Fluoxetine HCl (Prozac Cap) 20 mg DAILY PO 02/02/17 09:00 03/04/17 08:59 02/02/17 08:19 20 MG Propranolol HCl (Inderal LA Cap) 80 mg BID PO 02/01/17 21:00 03/03/17 20:59 02/02/17 09:26 80 MG Senna/Docusate Sodium (Senokot S Tab) 1 tab DAILY PO 02/02/17 09:00 03/04/17 08:59 02/02/17 08:19 1 TAB Pantoprazole Sodium (Protonix Tab) 40 mg QAM PO 02/02/17 09:00 03/04/17 08:59 02/02/17 08:19 40 MG Lacosamide (Vimpat Tab) 200 mg BID PO 02/01/17 21:00 03/03/17 20:59 02/02/17 08:20 200 MG Felbamate (Felbatol) 600 mg BID PO 02/01/17 21:00 03/03/17 20:59 02/02/17 08:29 600 MG Clobazam (Onfi) 5 mg BID PO 02/02/17 09:00 03/04/17 08:59 02/02/17 08:32 5 MG Lamotrigine (Lamictal Xr) 100 mg QAM PO 02/02/17 09:00 03/04/17 08:59 02/02/17 08:30 100 MG (Whit Sparrow CRNP) Objective Vital Signs Date Time Temp Pulse Resp B/P (MAP) Pulse Ox O2 Delivery O2 Flow Rate FiO2 02/02/17 11:41 36.8 55 16 95/64 (74) 95 Room Air 02/02/17 08:00 Room Air 02/02/17 07:35 36.7 54 16 106/64 (78) 94 Room Air 02/02/17 04:00 36.5 56 18 132/71 (91) 96 Room Air 02/02/17 04:00 Room Air 02/02/17 00:00 Room Air 02/01/17 23:50 36.5 55 18 113/62 (79) 94 Room Air 02/01/17 21:50 61 129/82 (98) 02/01/17 20:03 Room Air 02/01/17 19:28 36.4 52 20 115/73 (87) 97 Room Air 02/01/17 16:00 Room Air 02/01/17 15:31 36.6 80 18 129/90 (103) 94 Room Air 02/01/17 14:00 36.5 64 18 138/76 96 Room Air 02/01/17 13:11 54 20 93/50 97 02/01/17 12:48 54 02/01/17 12:30 52 18 112/75 95 Room Air (Whit Sparrow CRNP) Physical Exam Notes: General: no distress Eyes: normal inspection, PERLL Respiratory: chest non tender, clear to auscultation, normal breath sounds, no respiratory distress, no accessory muscle use Cardiac: regular rate and rhythm, no rub or gallop, no murmur, no edema, no jvd GI/: active bowel sounds, no abd pain or tenderness, soft, non distended Extremities: normal range of motion, normal strength, non tender Neuro/Psych: alert and oriented x 3, normal mood and affect Skin: normal color, dry (Whit Sparrow CRNP) Assessment and Plan Mr. Chatman is a 51 year old man with mild MR who lives in a long term here for lethargy, gait disturbance and falls following increases in his seizure medications following breakthrough seizures over the past two months. Seizure disorder - consulted neuro - will change the lamotrigine to 300 mg bid and leave gabapentin at 100 mg TID, and leave Vimpat, felbamate and clobazam at home doses per their recommendation - prn lorazepam for seizure activity - seizure precautions Gait disturbance and falls - PT/OT evals - Fall precautions - CT did not show Urinary retention - Bladder scanned for about 300 ml - Straight cath u/a, culture Full code (Whit Sparrow CRNP) Attending Attestation: Pt seen/examined, chart reviewed, care plan d/w JOSE Sparrow. I agree w/ the west components of her documentation. Pt more awake, alert today. Following commands. He offers no complaints. VSS no fever gen - bodywide tremors & ataxia, speech clear, awake/alert heart - RRR lungs - CTA b/l abd - soft ext - no edema A/P: 1. toxic encephalopathy - presumably due to over-medication from seizure meds appreciate neuro recs and will implement those recs 2. seizure disorder - med adjustments per neuro 3. ?UTI - agree with repeat u/a and urine cx PT, OT evals mother updated Vamsi Uribe MD (Vamsi Uribe MD)
[2017-02-02] MEDS: GABAPENTIN 100 MG CAP PO SCH ×2 (14:30→20:50)
[2017-02-02 15:11] LABS: MANUAL MICROSCOPIC REQUIRED? NO; REVIEW REQ? NO; URINE APPEARANCE CLEAR (CLEAR); URINE BILIRUBIN NEG (NEG); URINE COLOR YELLOW; URINE NITRITE NEG (NEG); URINE PH 5.5 (4.5-7.5); URINE SPECIFIC GRAVITY 1.019 (1.000-1.030); UROBILINOGEN NEG (NEG)
[2017-02-02] MEDS: LAMOTRIGINE 100 MG PO SCH (21:12)
[2017-02-03] MEDS ORDERED: NSS + 20MEQ KCL 1000ML 1,000 ML IV ONE (02:30)
[2017-02-03 03:53] VITALS: BP 129/79; PULSE 51; TEMP 36.6; O2SAT 95
[2017-02-03 07:59] VITALS: BP 115/75; PULSE 61; TEMP 36.5; O2SAT 94
[2017-02-03] MEDS: DOCUSATE SODIUM/SENNA 50/8.6MG TAB PO SCH (08:44)
[2017-02-03] MEDS: GABAPENTIN 100 MG CAP PO SCH ×3 (08:44→21:55)
[2017-02-03] MEDS: DOCUSATE SODIUM 100 MG CAP PO SCH ×2 (08:44→21:53)
[2017-02-03] MEDS: FLUOXETINE HCL 20 MG CAP PO SCH (08:44)
[2017-02-03] MEDS: LACOSAMIDE 50 MG TAB PO SCH ×2 (08:44→21:54)
[2017-02-03] MEDS: PANTOprazole SOD 40 MG TAB PO SCH (08:44)
[2017-02-03] MEDS: PROPRANOLOL HCL 80 MG LA CAP PO SCH ×2 (08:45→21:55)
[2017-02-03] MEDS: BusPIRone 15 MG TAB PO SCH ×2 (08:45→21:53)
[2017-02-03] MEDS: LAMOTRIGINE 100 MG PO SCH ×2 (08:47→22:00)
[2017-02-03] MEDS: FELBAMATE 600 MG PO SCH ×2 (08:49→22:00)
[2017-02-03] MEDS: CLOBAZAM 10MG TABLET PO SCH ×2 (08:50→22:03)
[2017-02-03] MEDS ORDERED: LAMOTRIGINE 100 MG PO SCH (09:00)
[2017-02-03 11:24] VITALS: BP 114/78; PULSE 50; TEMP 36.8; O2SAT 95
[2017-02-03 16:00] VITALS: O2SAT 93
[2017-02-03 16:12] VITALS: BP 133/94; PULSE 54; TEMP 36.9; O2SAT 93
[2017-02-03 20:00] VITALS: BP 131/83; PULSE 55; TEMP 36.7; O2SAT 93
--- NOTE | 2017-02-03 20:08 | Progress Note ---
Subjective Date of Service: Feb 03, 2017. Subjective Pt evaluation today including: conversation w/ patient, conversation w/ family (caregiver, father at bedside), physical exam, chart review, lab review, review of inpatient medication list Pain: none voiced PO Intake: fair Voiding: voiding difficulty patient had not voided in quite some time this AM patient did NOT have sensation to void and thus childs placed; 1200cc was obtained immediately caregiver reports bladder issues for at least 2 weeks prior to coming to hospital father / caregiver both state "he is still not himself" caregiver noted rapid decline w/ recent increase in gabapentin a few weeks ago Problem List Medical Problems: (1) Abdominal pain Status: Acute (2) Acute electrocardiogram changes Status: Acute (3) Altered mental status Status: Acute (4) Change in mental status Status: Acute (5) Closed head injury Status: Acute (6) Closed head injury Status: Acute (7) Closed head injury Status: Acute (8) Closed head injury Status: Acute (9) Contusion of lower back Status: Acute (10) Contusion of occipital region of scalp Status: Acute (11) Degenerative arthritis of cervical spine Status: Acute (12) Rjbpfzfdff-ihwavko-xjdptzljf (DTP) vaccination Status: Acute (13) Fall Status: Acute (14) Fall Status: Acute (15) Fall Status: Acute (16) Fall Status: Acute (17) Fall Status: Acute (18) Fall Status: Acute (19) Fall Status: Acute (20) Fall Status: Acute (21) Fall Status: Acute (22) Fall from bed Status: Acute (23) Head injury, closed Status: Acute (24) Hemorrhoids Status: Acute (25) Laceration of scalp Status: Acute (26) Medication reaction Status: Acute (27) Muscle tremor Status: Acute (28) Pneumonia Status: Acute (29) Seizure Status: Acute (30) Seizure Status: Acute (31) Weakness Status: Acute (32) Weakness Status: Acute Review of Systems unable to obtain ROS due to mental status Objective Vital Signs Date Time Temp Pulse Resp B/P (MAP) Pulse Ox O2 Delivery O2 Flow Rate FiO2 02/03/17 16:12 36.9 54 18 133/94 (107) 93 Room Air 02/03/17 16:00 93 Room Air 02/03/17 12:00 Room Air 02/03/17 11:24 36.8 50 16 114/78 (90) 95 Room Air 02/03/17 08:00 Room Air 02/03/17 07:59 36.5 61 18 115/75 (88) 94 Room Air 02/03/17 04:00 Room Air 02/03/17 03:53 36.6 51 16 129/79 (96) 95 Room Air 02/02/17 23:59 Room Air 02/02/17 23:52 36.2 50 17 131/63 (85) 94 Room Air 02/02/17 20:00 96 Room Air Physical Exam General Appearance: no apparent distress, + pertinent finding (eyes open but groggy and takes him several askings to follow commands) ENT: pharynx normal (MMM) Neck: no JVD Respiratory/Chest: lungs clear, no respiratory distress, no accessory muscle use Cardiovascular: regular rate, rhythm, no gallop, no murmur Abdomen: normal bowel sounds, non tender, soft, no organomegaly Extremities: no pedal edema Neurologic/Psychiatric: + pertinent finding (groggy, but follows commands; severe tremors all 4 extremities ) Assessment and Plan 51yo male - 1. toxic encephalopathy - presumably due to over-medication from seizure meds appreciate neuro recs to lower the gabapentin and lamictal will await those meds to re-equilabrate 2. high HCO3 level on BMP - check VBG, r/o hypercarbia. 3. ?UTI - ruled out; urine cx negative 4. urinary retention - even when he had 1000+cc of urine in the bladder he had no sensation to void. this would suggest neurogenic bladder. I am unclear if this is from med side effects vs his underlying neurological conditions. he needs RADHA to exclude BPH as well. 5. seizure disorder - management per neuro. cont all seizure meds. no seizures thus far while hospitalized. 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 continue beta narayan. 7. ambulatory dysfunction - PT, OT. 8. DVT proph - lovenox 40 daily. caregiver / father updated Continued [facility] stay due to: other (ongoing sedation ) Discharge planning: uncertain
[2017-02-03 20:30] LABS: VEN BLD GAS O2 SATURATION 60.3 %; VEN BLOOD GAS BASE EXCESS 3.8 mEq/L
[2017-02-03] MEDS ORDERED: ENOXAPARIN 40 MG/0.4 ML SYR SQ ONE (21:30)
[2017-02-04] VITALS (10 sets, daily range): BP systolic 116–145; BP diastolic 69–97; PULSE 50–62; TEMP 36–37.1; O2SAT 93–100
[2017-02-04 07:25] LABS: CALCIUM 8.7 mg/dl (8.5-10.1); CREATININE 0.91 mg/dl (0.60-1.40); POTASSIUM 3.7 mmol/L (3.5-5.1)
[2017-02-04] MEDS: BusPIRone 15 MG TAB PO SCH ×2 (07:44→20:20)
[2017-02-04] MEDS: PANTOprazole SOD 40 MG TAB PO SCH (07:44)
[2017-02-04] MEDS: DOCUSATE SODIUM/SENNA 50/8.6MG TAB PO SCH (07:44)
[2017-02-04] MEDS: GABAPENTIN 100 MG CAP PO SCH ×3 (07:44→20:23)
[2017-02-04] MEDS: LACOSAMIDE 50 MG TAB PO SCH ×2 (07:44→20:24)
[2017-02-04] MEDS: FLUOXETINE HCL 20 MG CAP PO SCH (07:44)
[2017-02-04] MEDS: DOCUSATE SODIUM 100 MG CAP PO SCH ×2 (07:44→20:20)
[2017-02-04] MEDS: PROPRANOLOL HCL 80 MG LA CAP PO SCH ×2 (07:44→20:23)
[2017-02-04] MEDS: LAMOTRIGINE 100 MG PO SCH ×2 (07:45→20:27)
[2017-02-04] MEDS: CLOBAZAM 10MG TABLET PO SCH ×2 (07:46→20:26)
[2017-02-04] MEDS: FELBAMATE 600 MG PO SCH ×2 (07:47→20:22)
[2017-02-04] MEDS ORDERED: RANITIDINE HCL 150 MG TAB PO ONE (13:45)
[2017-02-04] MEDS: RANITIDINE HCL 150 MG TAB PO SCH (20:25)
[2017-02-04] MEDS: ENOXAPARIN 40 MG/0.4 ML SYR SQ SCH (20:26)
--- NOTE | 2017-02-05 06:02 | Progress Note ---
Subjective Date of Service: late entry for visit Feb 04, 2017. Subjective Pt evaluation today including: conversation w/ patient, conversation w/ family (briefly, with father), physical exam, chart review, lab review, conversation w / [facility] consultant (neurology), review of inpatient medication list Pain: upper abdomen PO Intake: improving Voiding: childs catheter in place tele stable overnight he is much more awake, alert, and answering questions/talking today he feels better staff report no issues Problem List Medical Problems: (1) Abdominal pain Status: Acute (2) Acute electrocardiogram changes Status: Acute (3) Altered mental status Status: Acute (4) Change in mental status Status: Acute (5) Closed head injury Status: Acute (6) Closed head injury Status: Acute (7) Closed head injury Status: Acute (8) Closed head injury Status: Acute (9) Contusion of lower back Status: Acute (10) Contusion of occipital region of scalp Status: Acute (11) Degenerative arthritis of cervical spine Status: Acute (12) Aktbwmyyhb-laqzirs-mpczmivlg (DTP) vaccination Status: Acute (13) Fall Status: Acute (14) Fall Status: Acute (15) Fall Status: Acute (16) Fall Status: Acute (17) Fall Status: Acute (18) Fall Status: Acute (19) Fall Status: Acute (20) Fall Status: Acute (21) Fall Status: Acute (22) Fall from bed Status: Acute (23) Head injury, closed Status: Acute (24) Hemorrhoids Status: Acute (25) Laceration of scalp Status: Acute (26) Medication reaction Status: Acute (27) Muscle tremor Status: Acute (28) Pneumonia Status: Acute (29) Seizure Status: Acute (30) Seizure Status: Acute (31) Weakness Status: Acute (32) Weakness Status: Acute Review of Systems Constitutional: No fever Respiratory: No cough, No shortness of breath Cardiac: No chest pain Abdomen: + see HPI, + problem reported (hiccups, burping) Objective Vital Signs Date Time Temp Pulse Resp B/P (MAP) Pulse Ox O2 Delivery O2 Flow Rate FiO2 02/04/17 23:37 36.0 50 20 129/79 (96) 95 Room Air 02/04/17 20:00 94 Room Air 02/04/17 17:35 94 Room Air 02/04/17 15:21 36.6 53 20 116/73 (87) 94 Room Air 02/04/17 14:30 36.7 58 16 100 02/04/17 12:46 36.7 58 16 142/69 (93) 100 Room Air 02/04/17 12:00 Room Air 02/04/17 08:00 Room Air 02/04/17 07:35 37.1 61 18 128/97 (107) 95 Room Air Physical Exam General Appearance: no apparent distress, + pertinent finding (severe ataxic tremor - no change; MUCH MORE AWAKE TODAY AND ALERT) ENT: pharynx normal Neck: no JVD Respiratory/Chest: lungs clear, no respiratory distress, no accessory muscle use Cardiovascular: regular rate, rhythm, no gallop, no murmur Abdomen: normal bowel sounds, non tender, soft, no organomegaly Extremities: no pedal edema Neurologic/Psychiatric: alert, + pertinent finding (severe tremors - bodywide ) Laboratory Results Last 24 Hours Test 02/04/17 06:21 Sodium Level 138 mmol/L Potassium Level 3.7 mmol/L Chloride Level 104 mmol/L Carbon Dioxide Level 28 mmol/L Anion Gap 6.0 mmol/L Blood Urea Nitrogen 5 mg/dl Creatinine 0.91 mg/dl Est Creatinine Clear Calc Drug Dose 104.2 ml/min Estimated GFR () 111.9 Estimated GFR (Non- 96.6 BUN/Creatinine Ratio 5.0 Random Glucose 116 mg/dl Calcium Level 8.7 mg/dl Assessment and Plan 51yo male - 1. toxic encephalopathy - presumably due to over-medication from seizure meds appreciate neuro recs to lower the gabapentin and lamictal he is clearly better today 2. high HCO3 level on BMP - checked VBG and no significant hypercarbia 3. ?UTI - ruled out; urine cx negative 4. urinary retention - even when he had 1000+cc of urine in the bladder he had no sensation to void. this would suggest neurogenic bladder. I am unclear if this is from med side effects vs his underlying neurological conditions. he needs RADHA to exclude BPH as well. 5. seizure disorder - management per neuro. cont all seizure meds. no seizures thus far while hospitalized. 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 continue beta narayan. 7. ambulatory dysfunction - PT, OT. hopefully will be able to return back home to his detention 8. DVT proph - lovenox 40 daily. 9. upper abdominal discomfort - could be from gastritis or GERD; already on PPI ; add H2 narayan d/c tele transfer to med/surg Continued [facility] stay due to: other (ongoing sedation ) Discharge planning: uncertain (but hopefully his detention)
[2017-02-05 07:12] VITALS: BP 117/72; PULSE 64; TEMP 37.2; O2SAT 93
[2017-02-05] MEDS: RANITIDINE HCL 150 MG TAB PO SCH ×2 (09:24→20:58)
[2017-02-05] MEDS: DOCUSATE SODIUM 100 MG CAP PO SCH ×2 (09:25→20:58)
[2017-02-05] MEDS: FLUOXETINE HCL 20 MG CAP PO SCH (09:25)
[2017-02-05] MEDS: LACOSAMIDE 50 MG TAB PO SCH ×2 (09:25→20:58)
[2017-02-05] MEDS: BusPIRone 15 MG TAB PO SCH ×2 (09:25→20:58)
[2017-02-05] MEDS: GABAPENTIN 100 MG CAP PO SCH ×3 (09:25→20:58)
[2017-02-05] MEDS: DOCUSATE SODIUM/SENNA 50/8.6MG TAB PO SCH (09:26)
[2017-02-05] MEDS: PANTOprazole SOD 40 MG TAB PO SCH (09:26)
[2017-02-05] MEDS: PROPRANOLOL HCL 80 MG LA CAP PO SCH ×2 (09:26→20:58)
[2017-02-05] MEDS: LAMOTRIGINE 100 MG PO SCH ×2 (09:29→21:03)
[2017-02-05] MEDS: FELBAMATE 600 MG PO SCH ×2 (09:29→21:01)
[2017-02-05] MEDS: CLOBAZAM 10MG TABLET PO SCH ×2 (09:30→20:59)
[2017-02-05 14:39] VITALS: BP 117/67; PULSE 53; O2SAT 94
[2017-02-05 15:14] VITALS: BP 105/70; PULSE 52; TEMP 36.7; O2SAT 93
--- NOTE | 2017-02-05 18:01 | Hospitalist Progress Note ---
Hospitalist Progress Note Date of Service Feb 05, 2017. (Whit Sparrow CRNP) Subjective Pt evaluation today including: conversation w/ patient, physical exam, chart review, review of inpatient medication list Voiding: childs catheter in place Mr. Chatman says he is doing better today. He was able to ambulate in the halls with a walker and assistance though the nurse needed to bring a wheelchair behind him so he could rest at points. He continues to have tremors and is unable to feed himself. ROS Constitutional: no chills, aches, sweats or fever Respiratory: no sob,cough, sputum, or wheezing Cardiac: no chest pain, palpitations, edema, orthopnea or lightheadedness GI: no abdominal pain, nausea, vomiting, diarrhea or constipation : no dysuria or hesitancy Extremities: no joint pain or weakness Skin: no rash All Other Systems: Reviewed and Negative (Whit Sparrow CRNP) Medications Medications Administered Medications (Trade) Dose Ordered Sig/Hugh Route Start Time Stop Time Status Last Admin Dose Admin Sodium Chloride 500 ml @ 999 mls/hr Q31M STAT IV 02/01/17 09:54 02/01/17 10:24 DC 02/01/17 11:00 999 MLS/HR Sodium Chloride 1,000 ml @ 200 mls/hr Q5H STAT IV 02/01/17 09:54 02/01/17 14:53 DC 02/01/17 11:30 200 MLS/HR Potassium Chloride/Dextrose/ Sod Cl 1,000 ml @ 125 mls/hr Q8H IV 02/01/17 14:00 02/02/17 04:26 DC 02/01/17 22:43 125 MLS/HR Polyethylene (Miralax Powder Packet) 17 gm DAILY PRN PO 02/01/17 12:30 03/03/17 12:29 02/04/17 05:53 17 GM Buspirone HCl (BusPAR TAB) 15 mg QAM PO 02/02/17 09:00 03/04/17 08:59 02/05/17 09:25 15 MG Buspirone HCl (BusPAR TAB) 30 mg HS PO 02/01/17 21:00 03/03/17 20:59 02/04/17 20:20 30 MG Docusate Sodium (coLACE CAP) 100 mg BID PO 02/01/17 21:00 03/03/17 20:59 02/05/17 09:25 100 MG Fluoxetine HCl (Prozac Cap) 20 mg DAILY PO 02/02/17 09:00 03/04/17 08:59 02/05/17 09:25 20 MG Propranolol HCl (Inderal LA Cap) 80 mg BID PO 02/01/17 21:00 03/03/17 20:59 02/05/17 09:26 80 MG Senna/Docusate Sodium (Senokot S Tab) 1 tab DAILY PO 02/02/17 09:00 03/04/17 08:59 02/05/17 09:26 1 TAB Pantoprazole Sodium (Protonix Tab) 40 mg QAM PO 02/02/17 09:00 03/04/17 08:59 02/05/17 09:26 40 MG Gabapentin (Neurontin Cap) 100 mg TID PO 02/02/17 14:00 03/04/17 13:59 02/05/17 14:40 100 MG Lacosamide (Vimpat Tab) 200 mg BID PO 02/01/17 21:00 03/03/17 20:59 02/05/17 09:25 200 MG Felbamate (Felbatol) 600 mg BID PO 02/01/17 21:00 03/03/17 20:59 02/05/17 09:29 600 MG Clobazam (Onfi) 5 mg BID PO 02/02/17 09:00 03/04/17 08:59 02/05/17 09:30 5 MG Lamotrigine (Lamictal Xr) 100 mg QAM PO 02/02/17 09:00 02/02/17 12:15 DC 02/02/17 08:30 100 MG Lamotrigine (Lamictal Xr) 300 mg QAM PO 02/03/17 09:00 03/04/17 08:59 02/05/17 09:29 300 MG Lamotrigine (Lamictal Xr) 300 mg PM PO 02/02/17 21:00 03/04/17 20:59 02/04/17 20:27 300 MG Potassium Chloride/Sodium Chloride 1,000 ml @ 125 mls/hr Q8H ONCE IV 02/03/17 02:30 02/03/17 10:29 DC 02/03/17 02:48 125 MLS/HR Enoxaparin Sodium (Lovenox Inj) 40 mg NOW ONCE SQ 02/03/17 21:30 02/03/17 21:31 DC 02/03/17 21:52 40 MG Enoxaparin Sodium (Lovenox Inj) 40 mg DAILY@2100 SQ 02/04/17 21:00 03/06/17 20:59 02/04/17 20:26 40 MG Ranitidine HCl (zANTac TAB) 150 mg 1345 ONCE PO 02/04/17 13:45 02/04/17 13:46 DC 02/04/17 14:15 150 MG Ranitidine HCl (zANTac TAB) 150 mg BID PO 02/04/17 21:00 03/06/17 20:59 02/05/17 09:24 150 MG (Whit Sparrow CRNP) Objective Vital Signs Date Time Temp Pulse Resp B/P (MAP) Pulse Ox O2 Delivery O2 Flow Rate FiO2 02/05/17 16:00 Room Air 02/05/17 15:14 36.7 52 18 105/70 (82) 93 Room Air 02/05/17 14:39 53 94 02/05/17 08:30 Room Air 02/05/17 07:12 37.2 64 20 117/72 (87) 93 Room Air 02/04/17 23:37 36.0 50 20 129/79 (96) 95 Room Air 02/04/17 20:00 94 Room Air (Whit Sparrow CRNP) Physical Exam Notes: General: no distress Eyes: normal inspection, PERLL Respiratory: chest non tender, clear to auscultation, normal breath sounds, no respiratory distress, no accessory muscle use Cardiac: regular rate and rhythm, no rub or gallop, no murmur, no edema, no jvd GI/: active bowel sounds, no abd pain or tenderness, soft, non distended Extremities: normal range of motion, normal strength, non tender Neuro/Psych: alert and oriented x 3, normal mood and affect, full body tremors Skin: normal color, dry (Whit Sparrow CRNP) Laboratory Results 02/01/17 10:08 Red Blood Count 4.61, Mean Corpuscular Volume 95.2, Mean Corpuscular Hemoglobin 32.3, Mean Corpuscular Hemoglobin Concent 33.9, Mean Platelet Volume 9.2, Neutrophils (%) (Auto) 71.8, Lymphocytes (%) (Auto) 17.4, Monocytes (%) (Auto) 9.7, Eosinophils (%) (Auto) 0.7, Basophils (%) (Auto) 0.2, Neutrophils # (Auto) 4.09, Lymphocytes # (Auto) 0.99, Monocytes # (Auto) 0.55, Eosinophils # (Auto) 0.04, Basophils # (Auto) 0.01 02/04/17 06:21 Test 02/01/17 10:08 02/01/17 11:30 02/02/17 00:00 02/03/17 20:18 White Blood Count 5.69 K/uL (4.8-10.8) Red Blood Count 4.61 M/uL (4.7-6.1) Hemoglobin 14.9 g/dL (14.0-18.0) Hematocrit 43.9 % (42-52) Mean Corpuscular Volume 95.2 fL (80-100) Mean Corpuscular Hemoglobin 32.3 pg (25-34) Mean Corpuscular Hemoglobin Concent 33.9 g/dl (32-36) Platelet Count 154 K/uL (130-400) Mean Platelet Volume 9.2 fL (7.4-10.4) Neutrophils (%) (Auto) 71.8 % Lymphocytes (%) (Auto) 17.4 % Monocytes (%) (Auto) 9.7 % Eosinophils (%) (Auto) 0.7 % Basophils (%) (Auto) 0.2 % Neutrophils # (Auto) 4.09 K/uL (1.4-6.5) Lymphocytes # (Auto) 0.99 K/uL (1.2-3.4) Monocytes # (Auto) 0.55 K/uL (0.11-0.59) Eosinophils # (Auto) 0.04 K/uL (0-0.5) Basophils # (Auto) 0.01 K/uL (0-0.2) RDW Standard Deviation 45.8 fL (36.4-46.3) RDW Coefficient of Variation 13.1 % (11.5-14.5) Immature Granulocyte % (Auto) 0.2 % Immature Granulocyte # (Auto) 0.01 K/uL (0.00-0.02) Magnesium Level 2.0 mg/dl (1.8-2.4) Total Bilirubin 0.5 mg/dl (0.2-1) Direct Bilirubin 0.2 mg/dl (0-0.2) Aspartate Amino Transf (AST/SGOT) 16 U/L (15-37) Alanine Aminotransferase (ALT/SGPT) 18 U/L (12-78) Alkaline Phosphatase 138 U/L (45-117) Total Creatine Kinase 82 U/L (39-308) Total Protein 7.4 gm/dl (6.4-8.2) Albumin 3.9 gm/dl (3.4-5.0) Thyroid Stimulating Hormone (TSH) 0.671 uIu/ml (0.300-4.500) Lamotrigine (Lamictal) Level 14.6 mcg/mL (4.0-18.0) Urine WBC (Auto) 0 /hpf (0-5) Urine RBC (Auto) 0-4 /hpf (0-4) Urine Hyaline Casts (Auto) 0 /lpf (0-5) Urine Epithelial Cells (Auto) 0-5 /lpf (0-5) Urine Bacteria (Auto) NEG (NEG) Urine Color YELLOW Urine Appearance CLEAR (CLEAR) Urine pH 5.5 (4.5-7.5) Urine Specific [place] 1.019 (1.000-1.030) Urine Protein NEG (NEG) Urine Glucose (UA) NEG (NEG) Urine Ketones NEG (NEG) Urine Occult Blood NEG (NEG) Urine Nitrite NEG (NEG) Urine Bilirubin NEG (NEG) Urine Urobilinogen NEG (NEG) Urine Leukocyte Esterase NEG (NEG) Venous Blood pH 7.40 (7.36-7.41) Venous Blood Partial Pressure CO2 50 mmHg (38.0-50.0) Venous Blood Partial Pressure O2 30 mmHg Venous Blood HCO3 30 mmol/L Venous Blood Oxygen Saturation 60.3 % Venous Blood Base Excess 3.8 mEq/L Test 02/04/17 06:21 Anion Gap 6.0 mmol/L (3-11) Est Creatinine Clear Calc Drug Dose 104.2 ml/min Estimated GFR () 111.9 Estimated GFR (Non- 96.6 BUN/Creatinine Ratio 5.0 (10-20) Calcium Level 8.7 mg/dl (8.5-10.1) Date/Time Source Procedure Growth Status 02/02/17 00:00 Urine,Catheterized Urine Culture - Final NO GROWTH - LESS THAN 1,000 COLONIES/ML Complete (Whit Sparrow ., JOSE) Assessment and Plan Mr. Chatman is a 51 year old man with mild MR who lives in a halfway here for lethargy, gait disturbance and falls following increases in his seizure medications following breakthrough seizures over the past two months. Seizure disorder - consulted neuro - mg bid, gabapentin at 100 mg TID, and home doses of Vimpat, felbamate and clobazam per their recommendation - prn lorazepam for seizure activity - seizure precautions Gait disturbance and falls - PT/OT evals - ot signed off as they felt he was at his baseline, pt suggested outpatient pt - Fall precautions - CT 02/01 did not show acute abnormality Urinary retention - Childs placed - urine culture <1000 colonies - will need to DC with Childs catheter and follow up outpatient with urology Dispo - pt/ot did not specifically recommend inpatient rehab for patient after discharge however patient needs to be functionally independent to return to the halfway, which he is not. Attempted to discuss with CM today but was unable to connect with them today. Will re-address the issue in the morning and see what placement options are available. Full code (Whit Sparrow ., JOSE) Attending Attestation: Pt seen/examined, chart reviewed, care plan d/w JOSE Sparrow. I agree w/ the west components of her documentation. Pt's caregiver & father were in the room during my visit. everyone collectively agrees Ayaz is at neuropsychiatric baseline today. Burping/belching are improved. [facility] approved; can transfer there on 02/06/17. VSS no fever gen - sitting in chair, quite talkative, following commands mouth - MMM heart - RRR lungs - CTA b/l abd - soft, NT ext - no edema neuro - severe tremors of entire body A/P: 1. toxic encephalopathy - resolved; due to gabapentin; dose cut back to 100mg TID; lamictal dose also mildly lowered 2. urinary retention - voiding trial in 3-4 days. Ideally needs RADHA to r/o BPH but I believe this was more neurogenic (had 1200cc of urine in bladder when childs placed and patient had NO sensation to void prior to childs insertion). no UTI discovered. 3. seizure disorder - cont complex regimen 4. ataxic tremor - progressive over time dispo - [facility] on 02/06/17 father updated Solo URIBE MD (Vamsi Uribe MD)
[2017-02-05] MEDS: ENOXAPARIN 40 MG/0.4 ML SYR SQ SCH (20:59)
[2017-02-06] VITALS: O2SAT 94
[2017-02-06 00:29] VITALS: BP 115/66; PULSE 49; TEMP 36.6; O2SAT 98
[2017-02-06 07:56] VITALS: BP 117/70; PULSE 57; TEMP 36.8; O2SAT 92
[2017-02-06 07:59] LABS: HEMATOCRIT 40.3 % (42-52); MEAN CELL VOLUME 95.3 fL (80-100); MEAN CORPUSCULAR HEMOGLOBIN 31.7 pg (25-34); MEAN CORPUSCULAR HGB CONC 33.3 g/dl (32-36); MEAN PLATELET VOLUME 9.1 fL (7.4-10.4); PLATELET COUNT 122 K/uL (130-400); RED BLOOD COUNT 4.23 M/uL (4.7-6.1); WHITE BLOOD COUNT 6.12 K/uL (4.8-10.8)
[2017-02-06] MEDS: LACOSAMIDE 50 MG TAB PO SCH (08:35)
[2017-02-06] MEDS: DOCUSATE SODIUM 100 MG CAP PO SCH (08:35)
[2017-02-06] MEDS: GABAPENTIN 100 MG CAP PO SCH (08:35)
[2017-02-06] MEDS: BusPIRone 15 MG TAB PO SCH (08:35)
[2017-02-06] MEDS: PROPRANOLOL HCL 80 MG LA CAP PO SCH (08:36)
[2017-02-06] MEDS: FLUOXETINE HCL 20 MG CAP PO SCH (08:37)
[2017-02-06] MEDS: PANTOprazole SOD 40 MG TAB PO SCH (08:37)
[2017-02-06] MEDS: RANITIDINE HCL 150 MG TAB PO SCH (08:37)
[2017-02-06] MEDS: DOCUSATE SODIUM/SENNA 50/8.6MG TAB PO SCH (08:37)
[2017-02-06] MEDS: LAMOTRIGINE 100 MG PO SCH (08:41)
[2017-02-06] MEDS: FELBAMATE 600 MG PO SCH (08:41)
[2017-02-06] MEDS: CLOBAZAM 10MG TABLET PO SCH (08:42)
[2017-02-06 09:24] VITALS: PULSE 60
[2017-02-06] MEDS ORDERED: LAMOTRIGINE PO (10:30)
[2017-02-06] MEDS ORDERED: NRN100 PO (10:30)
--- NOTE | 2017-02-06 10:37 | Discharge Instructions ---
Discharge Instructions Date of Service Feb 06, 2017. Admission Reason for Admission: Altered Mental Status, Ataxia Discharge Discharge Diagnosis / Problem: altered mental status due to anti seizure medication overdose Discharge Goals Goal(s): Improve function, Improve disease control Activity Recommendations Activity Level: Assistance Required Therapies: Physical Therapy, Occupational Therapy Lifting Limitations: none Exercise/Sports Limitations: none Shower/Bathe: no limitations . Additional Information Patient informed of condition: Yes Advance Directives: No DNR: No Level of Care: Acute Rehab Communicable Disease: No Prognosis: Stable Ayala Catheter: Yes Instructions / Follow-Up Instructions / Follow-Up Please follow up with Dr. Hernandez from neurology within the next two weeks Please follow up with [facility] within about a week Current Hospital Diet Patient's current hospital diet: Regular Diet Discharge Diet Recommended Diet: Regular Diet Procedures Procedures Performed: CXR KUB Head CT Pending Studies Studies pending at discharge: no Physician Orders On Transfer Vital Signs: Vital Signs Past 12 Hours Date Time Temp Pulse Resp B/P (MAP) Pulse Ox O2 Delivery O2 Flow Rate FiO2 02/06/17 09:24 60 02/06/17 08:00 Room Air 02/06/17 07:56 36.8 57 16 117/70 (86) 92 Room Air 02/06/17 00:29 36.6 49 12 115/66 (82) 98 Room Air 02/06/17 00:00 94 Room Air Weigh: 91.1 kg POLST Discussion: Not Applicable Laboratory Results Last 24 Hours Test 02/06/17 07:31 White Blood Count 6.12 K/uL Red Blood Count 4.23 M/uL Hemoglobin 13.4 g/dL Hematocrit 40.3 % Mean Corpuscular Volume 95.3 fL Mean Corpuscular Hemoglobin 31.7 pg Mean Corpuscular Hemoglobin Concent 33.3 g/dl RDW Standard Deviation 46.4 fL RDW Coefficient of Variation 13.4 % Platelet Count 122 K/uL Mean Platelet Volume 9.1 fL Medical Emergencies . Who to Call and When: Medical Emergencies: If at any time you feel your situation is an emergency, please call 911 immediately. . Non-Emergent Contact Non-Emergency issues call your: Primary Care Provider Call Non-Emergent contact if: you have any medication questions . Past History Medical & Surgical History: (1) Seizure disorder (2) Ambulatory dysfunction (3) Urinary retention . "Provider Documentation" section prepared by Whit Sparrow. . Core Measure Problem Core Measures: None
[2017-02-06 11:34] VITALS: BP 117/70; PULSE 60; TEMP 36.8; O2SAT 92
--- NOTE | 2017-02-06 15:53 | Discharge Summary ---
Discharge Summary Date of Service Feb 06, 2017. Discharge Summary Admission Date: Feb 02, 2017 at 14:49 Discharge Date: Feb 06, 2017 Discharge Disposition: Rehab Principal Diagnosis: AMS due to overdose of anti seizure medications, ataxia Problems/Secondary Diagnoses: MR Shailesh morales in longterm Immunizations: Have You Had Influenza Vaccine: N/A Influenza Vaccine Date: Nov 03, 2009 History of Tetanus Vaccine?: Yes Tetanus Immunization Date: Jun 04, 2007 History of Pneumococcal: No History of Hepatitis B Vaccine: Unknown Hepatitis Immunization Date: Jun 04, 2007 Procedures: CXR IMPRESSION: 1. Chronic atelectatic change left and to a lesser extent right base. 2. Mild stable cardiomegaly. 3. Otherwise negative study Head CT Impression: No acute intracranial abnormality. KUB IMPRESSION: No acute process. Consultations: Per Dr. Rashid (neurology) Impression This 51 year old male with intellectual disabilities, refractory epilepsy, and a moderate to severe, chronic, ataxic tremor who presents with subacute confusion potentially related to dosage increases of some of his anticonvulsants. Plan I agree with reducing his dosage of gabapentin to 100 mg 3 times per day I would change this patient's Lamictal to 300 mg twice daily He may continue with the current dosages of Onfi, felbamate, and Vimpat. Outpatient follow-up with Dr. Hernandez Please contact me if I may be of further assistance Medication Reconciliation New Medications: Gabapentin (Gabapentin) 100 Mg Cap 100 MG PO TID for 30 Days, #90 CAP [Lamotrigine Xr] () 100 MG TAB 300 MG PO BID for 30 Days, #90 Continued Medications: Acetaminophen (Tylenol) 325 Mg Tab 650 MG PO Q6 PRN for F/CHACKO/P Alum & Mag Hydrox-Simethicone (Mylanta) 1 Henrietta Henrietta 30 ML PO Q6H PRN for Upset Stomach/Vomiting Buspirone Hcl (Buspar) 15 Mg Tab 15 MG PO QAM Buspirone Hcl (Buspar) 15 Mg Tab 30 MG PO HS Carbamide Peroxide (Otic) (Debrox) 6.5 % Jenniffer 5-10 DROPS OT UD INSERT 5-10 DROPS INTO EAR CANAL TWICE DAILY ON THE FIRST THREE DAYS OF THE MONTH EVERY MONTH Clobazam (Onfi) 2.5 Mg/Ml Henrietta 5 MG PO BID Docusate Sodium (Colace) 100 Mg Cap 100 MG PO BID Felbamate (Felbamate) 600 Mg Tab 600 MG PO BID Fluoxetine Hcl (Prozac) 20 Mg Cap 20 MG PO DAILY Hydrocortisone Acetate (Rectal (Anusol-Hc) 25 Mg Sup 25 MG LA Q6 PRN for Hemorrhoids, #7 SUP Lacosamide (Vimpat) 200 Mg Tab 200 MG PO BID Loperamide Hcl (Imodium A-D) 2 Mg Tab 4 MG PO UD PRN for Diarrhea Magnesium Hydroxide (Milk Of Magnesia) 30 Ml Susp 30 ML PO UD PRN for Constipation Multiple Vitamins W/ Minerals (Preservision Areds 2) 1 Cap Cap 2 CAP PO QAM Neomycin/Polymyx/Bacitr (Neosporin) Oint 1 APPL TOP BID PRN for CUTS,SCRAPES,ABRASIONS Omeprazole (Prilosec) 20 Mg Capcr 20 MG PO QAM Propranolol Hcl (Propranolol Hcl Er) 80 Mg Cap 80 MG PO BID, CAP 3 Refills Sennosides-Docusate Sodium (Senokot S) 1 Tab Tab 1 TAB PO DAILY Discontinued Medications: Dextromethorphan Polistirex (Delsym) 30 Mg/5 Ml Liq 10 ML PO Q12 PRN for Cough Gabapentin (Neurontin) 100 Mg Cap 300 MG PO QAM Gabapentin (Neurontin) 300 Mg Cap 600 MG PO PM Lamotrigine (Lamotrigine Er) 100 Mg Tab 100 MG PO BID TAKE WITH 200MG AND 25MG TABLET TO EQUAL TOTAL DOSAGE OF 325MG TWICE DAILY Lamotrigine (Lamotrigine Er) 200 Mg Tab 200 MG PO BID TAKE WITH 100 MG AND 25MG TAB TO EQUAL TOTAL DOSAGE OF 325MG TWICE A DAY Lamotrigine (Lamictal) 25 Mg Tab 25 MG PO BID, TAB TAKE WITH THE 100MG, 200MG TABLETS FOR A TOTAL DOSE OF 325MG TWICE A DAY Discharge Exam ROS Constitutional: no chills, aches, sweats or fever Respiratory: no sob,cough, sputum, or wheezing Cardiac: no chest pain, palpitations, edema, orthopnea or lightheadedness GI: no abdominal pain, nausea, vomiting, diarrhea or constipation : no dysuria or hesitancy Extremities: no joint pain or weakness Neuro: full body tremors Skin: no rash PE General: no distress Eyes: normal inspection, PERLL Respiratory: chest non tender, clear to auscultation, normal breath sounds, no respiratory distress, no accessory muscle use Cardiac: regular rate and rhythm, no rub or gallop, no murmur, no edema, no jvd GI/: active bowel sounds, no abd pain or tenderness, soft, non distended Extremities: normal range of motion, normal strength, non tender Neuro/Psych: alert and oriented x 3, normal mood and affect, intention tremors Skin: normal color, dry Hospital Course 51 y/o M Hx MR and seizure disorder. Pt resides in a longterm but maintains a degree of independence and works daily. The pt had a few breakthrough seizures over the pat 2 months and has had his seizure medication doses increased - including Gabapentin, Lamictal and Vimpat. Per his caretakers, since his medication increases previous to admission, he had developed daytime somnolence, difficulty with balance and coordination, tremors, irritability and a poor appetite. The pt had fallen and sustained minor head trauma a few days prior. He had been unable to maintain his balance or perform his normal daily routines and was additionally difficult to wake the morning of admission Seizure disorder - consulted neuro - lamotrigine 300 mg bid, gabapentin reduced to 100 mg TID, and doses of Vimpat, felbamate and clobazam kept the same as home doses per their recommendation - prn lorazepam for seizure activity - patient did not have any apparent seizure activity throughout this admission Gait disturbance and falls - PT/OT evals - recommended for rehab and patient was discharged as such. As I understand it, he was mostly independent at the longterm but during this admission he remained unable to feed himself due to tremors and also needed assistance to walk with a walker. The tremors are probably at least in part side effect from seizure meds. - Head CT 02/01 did not show acute abnormality Urinary retention - Ayala placed and patient discharged to with catheter - urine culture <1000 colonies - follow up outpatient with urology JOSE Physician Supervision Note: I interviewed and examined the patient. Discussed with Whit GARCIA and agree with findings and plan as documented in the note. Any exceptions or clarifications are listed here: None PT is still fairly tremulous and has some dyskinesia, meds are adjusted and maybe [facility] can help with physical medicine intervention vitals are stable car is regular, lungs are clear will discharge but will need urology follow up [facility] Documented By: Dexter Moser Total Time Spent: Greater than 30 minutes This includes examination of the patient, discharge planning, medication reconciliation, and communication with other providers. Discharge Instructions Please refer to the electronic Patient Visit Report (Discharge Instructions) for additional information. Follow-Up Urology in about a week Neuro in about two weeks
== END 2017-02-06 13:38 | DRG 93 ==
LOC: EDBD 09:17 → C.EDB 09:18 → C.2E 12:26 → ENRESERV 12:53 → OBSVTOIN 02-02 14:49 → ENRESERV 02-04 14:15 → C.MS2W 02-04 14:54
PROVIDERS: ADMIT Internal Medicine; ATTEND Internal Medicine
DX: G92 Toxic encephalopathy (principal); G40.909 Epilepsy, unspecified, not intractable, without status epilepticus; F70 Mild intellectual disabilities; R41.82 Altered mental status, unspecified; R27.0 Ataxia, unspecified; R33.9 Retention of urine, unspecified; T42.6X5A Adverse effect of other antiepileptic and sedative-hypnotic drugs, initial encounter; Z82.49 Family history of ischemic heart disease and other diseases of the circulatory system; Z84.1 Family history of disorders of kidney and ureter

== ENCOUNTER 2017-02-18 19:20 | Observation (INO) | payer OTHER ==
[~2017-02-18] VITALS: Ht 182.9 cm; Wt 84.7 kg
[~2017-02-18 19:20] MED LIST changes: -DEXT5LIQ23 PO; -FLUO20CA37 PO; -GABA-112 PO; -GABA-113 PO; +HYDR25SU20 PR; -LACO200T PO; -LAMO1TAB76 PO; -LAMO1TAB77 PO; -LAMO25TA PO; +LAMOTRIGINE PO; -LOPE-5 PO; -MOML PO; -MULT60CA PO; -NEOMOIN3 TOP; +NRN100 PO; -[UNRECOGNIZED DRUG - CODE] PO
--- NOTE | 2017-02-18 19:47 | EMERGENCY ROOM VISIT NOTE ---
History Report prepared by Candelaria: Júnior Rankin Under the Supervision of: Dr. Tigre Hurtado M.D. First contact with patient: 19:32 Chief Complaint: FEVER Stated Complaint: FEVER History of Present Illness The patient is a 51 year old male who presents to the Emergency Room with complaints of a constant fever beginning today. Per medical student, the patient has a history of TBI and seizures that occur nearly constantly. He notes that the patient is currently staying at [facility]. He reports that the patient's fever reached a high of 102. He states that the patient was given Tylenol prior to arrival. The patient denies any cough and congestion but states that he is shaking more than usual. Source of History: patient, other (medical student) Onset: today Position: other (global) Symptom Intensity: 102 Quality: other (fever) Timing: constant Associated Symptoms: No cough Note: The patient denies any congestion. He notes that he is shaking more than usual. Review of Systems See HPI for pertinent positives and negatives. A total of ten systems were reviewed and were otherwise negative. Past Medical & Surgical Medical Problems: (1) Altered mental status (2) Ambulatory dysfunction (3) Encephalopathy (4) Epilepsy (5) Hydronephrosis with ureteral calculus (6) Inguinal hernia (7) Kidney stone (8) Mild mental retardation (9) Rectal bleed (10) Seizure disorder (11) Seizures (12) Status epilepticus (13) TBI (traumatic brain injury) (14) Tegretol toxicity (15) Tremor (16) Urinary retention Family History Heart disease Hypertension Kidney disease Social History Smoking Status: Never Smoker Alcohol Use: none Drug Use: none Marital Status: single Housing Status: assisted living Occupation Status: disabled Current/Historical Medications Scheduled Buspirone Hcl (Buspar), 15 MG PO QAM Buspirone Hcl (Buspar), 30 MG PO HS Docusate Sodium (Colace), 100 MG PO BID Felbamate (Felbamate), 600 MG PO BID Fluoxetine Hcl (Prozac), 20 MG PO DAILY Gabapentin (Gabapentin), 100 MG PO TID Lacosamide (Vimpat), 200 MG PO BID Lamotrigine (Lamotrigine Er), 300 MG PO Q12 Multiple Vitamins W/ Minerals (Preservision Areds 2), 2 CAP PO QAM Pantoprazole (Protonix), 40 MG PO DAILYBB Propranolol Hcl (Propranolol Hcl Er), 80 MG PO BID Sennosides-Docusate Sodium (Senokot S), 1 TAB PO HS [Clobazam], 5 MG PO Q12 Scheduled PRN Acetaminophen (Tylenol), 500 MG PO Q4H PRN for Pain Alum & Mag Hydrox-Simethicone (Antacid & Antigas 200-200-20 mg/5Ml), 30 ML PO Q6 PRN for Loperamide Hcl (Imodium A-D), 4 MG PO UD PRN for Diarrhea Magnesium Hydroxide (Milk Of Magnesia), 30 ML PO UD PRN for Constipation Neomycin/Polymyx/Bacitr (Neosporin), 1 APPL TOP BID PRN for CUTS,SCRAPES, ABRASIONS Tramadol (Ultram), 50 MG PO Q4H PRN for Pain Allergies Coded Allergies: Sulfamethoxazole w/Trimethoprim (Verified Allergy, Unknown, dizziness and increase in tremor, 02/01/17) Grapefruit (Verified Adverse Reaction, Unknown, INTERACTS WITH OTHER MEDS , 02/01/17) Ibuprofen (Verified Adverse Reaction, Unknown, avoids secondary to reactions with other medications, 01/23/17) Levetiracetam (Verified Adverse Reaction, Unknown, AGITATION, 02/01/17) Physical Exam Vital Signs Date Time Temp Pulse Resp B/P (MAP) Pulse Ox O2 Delivery O2 Flow Rate FiO2 02/19/17 00:42 67 02/19/17 00:28 84 20 110/60 92 Room Air 02/18/17 23:29 37.1 72 20 110/60 92 Room Air 02/18/17 21:52 86 20 110/79 92 Room Air 02/18/17 20:23 87 20 101/75 93 Room Air 02/18/17 20:14 93 Room Air 02/18/17 19:50 89 02/18/17 19:28 37.2 90 20 101/75 94 Room Air Physical Exam GENERAL: Awake, alert, chronically ill appearing,. fatigued, in no distress. Ataxic myoclonic jerking with periodical staring spells of unresponsiveness. HENT: Normocephalic, atraumatic. Oropharynx unremarkable. Dry mucous membranes. EYES: Normal conjunctiva. Sclera non-icteric. NECK: Supple. No nuchal rigidity. FROM. No JVD. RESPIRATORY: Clear to auscultation. CARDIAC: Regular rate, normal rhythm. Extremities warm and well perfused. Pulses equal. ABDOMEN: Soft, non-distended. No tenderness to palpation. No rebound or guarding. No masses. RECTAL: Deferred. MUSCULOSKELETAL: Chest examination reveals no tenderness. The back is symmetrical on inspection without obvious abnormality. There is no CVA tenderness to palpation. No joint edema. LOWER EXTREMITIES: Calves are equal size bilaterally and non-tender. No edema. No discoloration. NEURO: Normal sensorium. No sensory or motor deficits noted. SKIN: No rash or jaundice noted. Medical Decision & Procedures ER Provider Diagnostic Interpretation: Radiology results as stated below per my review and radiologist interpretation: CHEST ONE VIEW PORTABLE FINDINGS: Cardiac silhouette remains enlarged. Prominence of pulmonary vasculature. Vague perihilar opacities suggested. Minimal bandlike opacity at the left lung base persists. No large effusion or pneumothorax. Osseous structures normal. Cholecystectomy clips noted. IMPRESSION: 1. Cardiomegaly with pulmonary vascular prominence and minimal vague perihilar opacities suggest volume overload with possible developing pulmonary edema. 2. Persistent left basilar opacity likely atelectasis or scarring. Electronically signed by: John Chavez M.D. 02/18/2017 8:33 PM Laboratory Results 02/18/17 19:08 Red Blood Count 4.38, Mean Corpuscular Volume 95.4, Mean Corpuscular Hemoglobin 32.2, Mean Corpuscular Hemoglobin Concent 33.7, Mean Platelet Volume 9.7, Neutrophils (%) (Auto) 83.4, Lymphocytes (%) (Auto) 7.9, Monocytes (%) (Auto) 7.2, Eosinophils (%) (Auto) 1.1, Basophils (%) (Auto) 0.1, Neutrophils # (Auto) 11.62, Lymphocytes # (Auto) 1.10, Monocytes # (Auto) 1.01, Eosinophils # (Auto) 0.16, Basophils # (Auto) 0.02 02/18/17 19:08 Test 02/18/17 19:08 02/18/17 20:00 02/18/17 20:14 02/18/17 20:15 White Blood Count 13.95 K/uL (4.8-10.8) Red Blood Count 4.38 M/uL (4.7-6.1) Hemoglobin 14.1 g/dL (14.0-18.0) Hematocrit 41.8 % (42-52) Mean Corpuscular Volume 95.4 fL (80-100) Mean Corpuscular Hemoglobin 32.2 pg (25-34) Mean Corpuscular Hemoglobin Concent 33.7 g/dl (32-36) Platelet Count 176 K/uL (130-400) Mean Platelet Volume 9.7 fL (7.4-10.4) Neutrophils (%) (Auto) 83.4 % Lymphocytes (%) (Auto) 7.9 % Monocytes (%) (Auto) 7.2 % Eosinophils (%) (Auto) 1.1 % Basophils (%) (Auto) 0.1 % Neutrophils # (Auto) 11.62 K/uL (1.4-6.5) Lymphocytes # (Auto) 1.10 K/uL (1.2-3.4) Monocytes # (Auto) 1.01 K/uL (0.11-0.59) Eosinophils # (Auto) 0.16 K/uL (0-0.5) Basophils # (Auto) 0.02 K/uL (0-0.2) RDW Standard Deviation 47.0 fL (36.4-46.3) RDW Coefficient of Variation 13.6 % (11.5-14.5) Immature Granulocyte % (Auto) 0.3 % Immature Granulocyte # (Auto) 0.04 K/uL (0.00-0.02) Anion Gap 6.0 mmol/L (3-11) Est Creatinine Clear Calc Drug Dose 98.6 ml/min Estimated GFR () 102.3 Estimated GFR (Non- 88.3 BUN/Creatinine Ratio 16.8 (10-20) Calcium Level 8.8 mg/dl (8.5-10.1) Total Bilirubin 0.4 mg/dl (0.2-1) Direct Bilirubin < 0.1 mg/dl (0-0.2) Aspartate Amino Transf (AST/SGOT) 15 U/L (15-37) Alanine Aminotransferase (ALT/SGPT) 29 U/L (12-78) Alkaline Phosphatase 119 U/L (45-117) Total Creatine Kinase 48 U/L (39-308) Total Protein 7.2 gm/dl (6.4-8.2) Albumin 3.6 gm/dl (3.4-5.0) Lipase 321 U/L (73-393) Urine Color YELLOW Urine Appearance CLEAR (CLEAR) Urine pH >= 9.0 (4.5-7.5) Urine Specific Pisek 1.021 (1.000-1.030) Urine Protein NEG (NEG) Urine Glucose (UA) NEG (NEG) Urine Ketones NEG (NEG) Urine Occult Blood 2+ (NEG) Urine Nitrite NEG (NEG) Urine Bilirubin NEG (NEG) Urine Urobilinogen NEG (NEG) Urine Leukocyte Esterase TRACE (NEG) Urine WBC (Auto) 1-5 /hpf (0-5) Urine RBC (Auto) >30 /hpf (0-4) Urine Hyaline Casts (Auto) 1-5 /lpf (0-5) Urine Epithelial Cells (Auto) 0-5 /lpf (0-5) Urine Bacteria (Auto) NEG (NEG) Pro-B-Type Natriuretic Peptide 87 pg/ml (0-900) Lactic Acid Level 1.3 mmol/L (0.4-2.0) Test 02/18/17 22:04 Influenza Type A Antigen Neg for Influ A (NEG) Influenza Type B Antigen Neg for Influ B (NEG) Laboratory results reviewed by me Medications Administered Medications (Trade) Dose Ordered Sig/Hugh Route Start Time Stop Time Status Last Admin Dose Admin Sodium Chloride 1,000 ml @ 999 mls/hr Q1H1M STAT IV 02/18/17 20:52 02/18/17 21:52 DC 02/18/17 20:52 999 MLS/HR ECG Indication: other (fever) Rate (beats per minute): 87 Rhythm: normal sinus Findings: no acute ischemic change, other (Normal axis) ED Course 1940: The patient was evaluated in room C2. A complete history and physical exam was performed. At this time the patient was evaluated by the medical student. The student's findings were discussed with me. We discussed a possible treatment plan and differential diagnoses for the patient. 2149: I spoke to [employer]. The patient's shaking is not baseline. Medical Decision I reviewed the patient's past medical history, medications, and the nursing notes as described above. Differential diagnoses include: pneumonia, bronchitis, UTI, and sepsis. The patient is a 51-year-old gentleman with a past medical history of developmental delay, refractory seizures on Lacosamide, lamotrigine, [facility] emergency department from [facility] after he had a fever to 102 today in the setting of having increase in his chronic myoclonic ataxic jerking with additional episodes of unresponsiveness per history of present illness. On arrival the patient is afebrile after getting acetaminophen at rehabilitation, in no acute distress, vital signs stable. On exam the patient continues to have his ataxic movements but is alert and well answer basic questions saying that he is aware of his motor movements when they happen. He periodically will stare into space but will respond with slight painful stimulus. WBC 13, Labs otherwise unremarkable. UA with rbc's however per [facility] RN they have a witnessed some hematuria recently particularly when his movements cause displacement of the Ayala catheter. Chest x-ray negative for pneumonia. Influenza negative. Given the patient's chronic medical conditions in the setting of fever and question of worsening neurologic status it is reasonable to admit the patient for observation of his fevers and upon further review of blood cultures which were sent and pending. Case was d/w Dr. Latif, who will admit the patient for further management. Medication Reconcilliation Current Medication List: was personally reviewed by me Blood Pressure Screening Patient's blood pressure: Normal blood pressure Blood pressure disposition: Did not require urgent referral Consults Time Called: [phone] Consulting Physician: CAROLE Martin Returned Call: [phone] I discussed the patient with CAROLE Martin. He will evaluate the patient for further treatment. Impression Primary Impression: Fever of unknown origin Additional Impression: Leukocytosis Scribe Attestation The scribe's documentation has been prepared under my direction and personally reviewed by me in its entirety. I confirm that the note above accurately reflects all work, treatment, procedures, and medical decision making performed by me. Departure Information Dispostion Being Evaluated By Hospitalist Referrals Jose Juan Brady M.D. (PCP) Patient Instructions My [facility] Problem Qualifiers
[2017-02-18] MEDS ORDERED: PANT40TA PO (20:24)
[2017-02-18] MEDS ORDERED: LAMO1TAB76 PO (20:24)
[2017-02-18] MEDS ORDERED: TRAM-10 PO (20:24)
[2017-02-18] MEDS ORDERED: ACET-1256 PO (20:24)
[2017-02-18] MEDS ORDERED: CLOBAZAM PO (20:24)
[2017-02-18 20:28] LABS: BASO % 0.1 %; BASO ABS # 0.02 K/uL (0-0.2); EOS % 1.1 %; EOS ABS # 0.16 K/uL (0-0.5); HEMATOCRIT 41.8 % (42-52); HEMOGLOBIN 14.1 g/dL (14.0-18.0); IG# 0.04 K/uL (0.00-0.02); LYMPH % 7.9 %; MEAN CELL VOLUME 95.4 fL (80-100); MEAN CORPUSCULAR HEMOGLOBIN 32.2 pg (25-34); MEAN CORPUSCULAR HGB CONC 33.7 g/dl (32-36); MEAN PLATELET VOLUME 9.7 fL (7.4-10.4); MONO % 7.2 %; MONO ABS # 1.01 K/uL (0.11-0.59); NEUT % 83.4 %; NEUT ABS # 11.62 K/uL (1.4-6.5); PLATELET COUNT 176 K/uL (130-400); RED CELL DISTRIBUTION WIDTH CV 13.6 % (11.5-14.5); WHITE BLOOD COUNT 13.95 K/uL (4.8-10.8)
--- NOTE | 2017-02-18 20:34 | DIAGNOSTIC IMAGING REPORT ---
CHEST ONE VIEW PORTABLE CLINICAL HISTORY: 51 years-old Male presenting with CHEST PAIN. TECHNIQUE: Portable upright AP view of the chest was obtained. COMPARISON: 02/01/2017. FINDINGS: Cardiac silhouette remains enlarged. Prominence of pulmonary vasculature. Vague perihilar opacities suggested. Minimal bandlike opacity at the left lung base persists. No large effusion or pneumothorax. Osseous structures normal. Cholecystectomy clips noted. IMPRESSION: 1. Cardiomegaly with pulmonary vascular prominence and minimal vague perihilar opacities suggest volume overload with possible developing pulmonary edema. 2. Persistent left basilar opacity likely atelectasis or scarring. Electronically signed by: John Chavez M.D. 02/18/2017 8:33 PM Dictated Date/Time: 02/18/2017 8:32 PM
[2017-02-18] MEDS ORDERED: SODIUM CHLORIDE 0.9% 1000ML 1,000 ML IV STA (20:52)
[2017-02-18 21:02] LABS: ALBUMIN 3.6 gm/dl (3.4-5.0); ALKALINE PHOSPHATASE 119 U/L (45-117); ALT/SGPT 29 U/L (12-78); AST/SGOT 15 U/L (15-37); BLOOD UREA NITROGEN 17 mg/dl (7-18); CALCIUM 8.8 mg/dl (8.5-10.1); CARBON DIOXIDE 29 mmol/L (21-32); CREATININE 0.98 mg/dl (0.60-1.40); GLUCOSE 93 mg/dl (70-99); LIPASE 321 U/L (73-393); POTASSIUM 3.9 mmol/L (3.5-5.1); SODIUM 138 mmol/L (136-145); TOTAL PROTEIN 7.2 gm/dl (6.4-8.2)
[2017-02-18 22:55] LABS: INFLUENZA B ANTIGEN Neg for Influ B (NEG)
--- NOTE | 2017-02-19 00:16 | History and Physical ---
History & Physical Date & Time of Service: Feb 19, 2017 at 00:11 Chief Complaint: FEVER Primary Care Physician: Tawanna King History of Present Illness Source: patient, clinic records, hospital records 51M with a PMHx of seizure disorder s/p TBI p/w increasing seizure activity from [facility]. Patient was recently discharged from [facility] on 02/06 with a lower Gabapentin and Lamictal Dose because of oversedation from his seizure medications. Patient is hard to arouse on exam around midnight. He is oriented to year, person and place. Patient denies being in any focal pain. There are no family members in the room. Seizure precautions are in place. Patient has a slight tremor of his UE. Patient appears tired and appears to sleep in between questions and must be frequently aroused. Per HPI, pt had a fever at [facility] of 102F. After speaking with ER nurse patient has not had any complaints or loose stools since arrival (CT showed possible proctitis). Pt arrived with a childs in place. ROS: Denies diarrhea or loose stools. Past Medical/Surgical History Medical Problems: (1) Altered mental status Status: Resolved (2) Epilepsy Status: Chronic (3) Hydronephrosis with ureteral calculus Status: Resolved (4) Kidney stone Status: Resolved (5) Mild mental retardation Status: Chronic (6) Status epilepticus Status: Resolved (7) Tegretol toxicity Status: Resolved (8) Tremor Status: Chronic Family History Heart disease Hypertension Kidney disease Social History Smoking Status: Never Smoker Smokeless Tobacco Use: No Alcohol Use: none Drug Use: none Marital Status: single Housing status: other Occupational Status: disabled Immunizations History of Influenza Vaccine: N/A Influenza Vaccine Date: Nov 03, 2009 History of Tetanus Vaccine?: Yes Tetanus Immunization Date: Jun 04, 2007 History of Pneumococcal: No History of Hepatitis B Vaccine: Unknown Hepatitis Immunization Date: Jun 04, 2007 Multi-Drug Resistant Organisms History of MDRO: No Allergies Coded Allergies: Sulfamethoxazole w/Trimethoprim (Verified Allergy, Unknown, dizziness and increase in tremor, 02/01/17) Grapefruit (Verified Adverse Reaction, Unknown, INTERACTS WITH OTHER MEDS , 02/01/17) Ibuprofen (Verified Adverse Reaction, Unknown, avoids secondary to reactions with other medications, 01/23/17) Levetiracetam (Verified Adverse Reaction, Unknown, AGITATION, 02/01/17) Home Medications Scheduled Buspirone Hcl (Buspar), 15 MG PO QAM Buspirone Hcl (Buspar), 30 MG PO HS Docusate Sodium (Colace), 100 MG PO BID Felbamate (Felbamate), 600 MG PO BID Fluoxetine Hcl (Prozac), 20 MG PO DAILY Gabapentin (Gabapentin), 100 MG PO TID Lacosamide (Vimpat), 200 MG PO BID Lamotrigine (Lamotrigine Er), 300 MG PO Q12 Multiple Vitamins W/ Minerals (Preservision Areds 2), 2 CAP PO QAM Pantoprazole (Protonix), 40 MG PO DAILYBB Propranolol Hcl (Propranolol Hcl Er), 80 MG PO BID Sennosides-Docusate Sodium (Senokot S), 1 TAB PO HS [Clobazam], 5 MG PO Q12 Scheduled PRN Acetaminophen (Tylenol), 500 MG PO Q4H PRN for Pain Alum & Mag Hydrox-Simethicone (Antacid & Antigas 200-200-20 mg/5Ml), 30 ML PO Q6 PRN for Loperamide Hcl (Imodium A-D), 4 MG PO UD PRN for Diarrhea Magnesium Hydroxide (Milk Of Magnesia), 30 ML PO UD PRN for Constipation Neomycin/Polymyx/Bacitr (Neosporin), 1 APPL TOP BID PRN for CUTS,SCRAPES, ABRASIONS Tramadol (Ultram), 50 MG PO Q4H PRN for Pain Review of Systems Constitutional: No fever, No chills Respiratory: No cough, No sputum, No wheezing, No shortness of breath, No dyspnea on exertion Abdomen: No pain, No nausea, No vomiting, No diarrhea, No constipation Musculoskeletal: No joint pain Genitourinary - Male: No dysuria, No urinary frequency, No urinary hesitancy, No urinary retention Neurologic: No memory loss Endocrine: No fatigue Physical Exam Vital Signs Date Time Temp Pulse Resp B/P (MAP) Pulse Ox O2 Delivery O2 Flow Rate FiO2 02/18/17 23:29 37.1 72 20 110/60 92 Room Air 02/18/17 21:52 86 20 110/79 92 Room Air 02/18/17 20:23 87 20 101/75 93 Room Air 02/18/17 20:14 93 Room Air 02/18/17 19:50 89 02/18/17 19:28 37.2 90 20 101/75 94 Room Air General Appearance: WD/WN, + mild distress, + pertinent finding (pt appears tired, is sleeping when entering the room) Respiratory/Chest: chest non-tender, lungs clear, normal breath sounds, no respiratory distress, no accessory muscle use Cardiovascular: regular rate, rhythm, no edema, no gallop, no JVD, no murmur, normal peripheral pulses Abdomen/GI: normal bowel sounds, non tender, soft, no organomegaly Genitourinary - Male: + pertinent finding (has a childs in place draining yellow urine) Back: no CVA tenderness Extremities/Musculoskelatal: no calf tenderness, no pedal edema Neurologic/Psych: alert, oriented x 3, + pertinent finding (patient has tremors of his upper and LE worse upon repositioning of patient. Patient is very drowsy and doesn't answer all questions - when he answers his responses are appropriate. Pt does not respond to motor commands of his UE or LE very well - unable to determine if this is the patient's baseline. ) Skin: no rash Diagnostics Laboratory Results Results Past 24 Hours Test 02/18/17 19:08 02/18/17 20:00 02/18/17 20:14 02/18/17 20:15 Range/Units White Blood Count 13.95 4.8-10.8 K/uL Red Blood Count 4.38 4.7-6.1 M/uL Hemoglobin 14.1 14.0-18.0 g/dL Hematocrit 41.8 42-52 % Mean Corpuscular Volume 95.4 80-100 fL Mean Corpuscular Hemoglobin 32.2 25-34 pg Mean Corpuscular Hemoglobin Concent 33.7 32-36 g/dl Platelet Count 176 130-400 K/uL Mean Platelet Volume 9.7 7.4-10.4 fL Neutrophils (%) (Auto) 83.4 % Lymphocytes (%) (Auto) 7.9 % Monocytes (%) (Auto) 7.2 % Eosinophils (%) (Auto) 1.1 % Basophils (%) (Auto) 0.1 % Neutrophils # (Auto) 11.62 1.4-6.5 K/uL Lymphocytes # (Auto) 1.10 1.2-3.4 K/uL Monocytes # (Auto) 1.01 0.11-0.59 K/uL Eosinophils # (Auto) 0.16 0-0.5 K/uL Basophils # (Auto) 0.02 0-0.2 K/uL RDW Standard Deviation 47.0 36.4-46.3 fL RDW Coefficient of Variation 13.6 11.5-14.5 % Immature Granulocyte % (Auto) 0.3 % Immature Granulocyte # (Auto) 0.04 0.00-0.02 K/uL Sodium Level 138 136-145 mmol/L Potassium Level 3.9 3.5-5.1 mmol/L Chloride Level 103 98-107 mmol/L Carbon Dioxide Level 29 21-32 mmol/L Anion Gap 6.0 3-11 mmol/L Blood Urea Nitrogen 17 7-18 mg/dl Creatinine 0.98 0.60-1.40 mg/dl Est Creatinine Clear Calc Drug Dose 98.6 ml/min Estimated GFR () 102.3 Estimated GFR (Non- 88.3 BUN/Creatinine Ratio 16.8 10-20 Random Glucose 93 70-99 mg/dl Calcium Level 8.8 8.5-10.1 mg/dl Total Bilirubin 0.4 0.2-1 mg/dl Direct Bilirubin < 0.1 0-0.2 mg/dl Aspartate Amino Transf (AST/SGOT) 15 15-37 U/L Alanine Aminotransferase (ALT/SGPT) 29 12-78 U/L Alkaline Phosphatase 119 45-117 U/L Total Creatine Kinase 48 39-308 U/L Total Protein 7.2 6.4-8.2 gm/dl Albumin 3.6 3.4-5.0 gm/dl Lipase 321 73-393 U/L Urine Color YELLOW Urine Appearance CLEAR CLEAR Urine pH >= 9.0 4.5-7.5 Urine Specific [place] 1.021 1.000-1.030 Urine Protein NEG NEG Urine Glucose (UA) NEG NEG Urine Ketones NEG NEG Urine Occult Blood 2+ NEG Urine Nitrite NEG NEG Urine Bilirubin NEG NEG Urine Urobilinogen NEG NEG Urine Leukocyte Esterase TRACE NEG Urine WBC (Auto) 1-5 0-5 /hpf Urine RBC (Auto) >30 0-4 /hpf Urine Hyaline Casts (Auto) 1-5 0-5 /lpf Urine Epithelial Cells (Auto) 0-5 0-5 /lpf Urine Bacteria (Auto) NEG NEG Pro-B-Type Natriuretic Peptide 87 0-900 pg/ml Lactic Acid Level 1.3 0.4-2.0 mmol/L Test 02/18/17 22:04 Range/Units Influenza Type A Antigen Neg for Influ A NEG Influenza Type B Antigen Neg for Influ B NEG Microbiology Results 02/18/17 Blood Culture, Received Pending 02/18/17 Blood Culture, Received Pending Diagnostic Radiology CHEST ONE VIEW PORTABLE CLINICAL HISTORY: 51 years-old Male presenting with CHEST PAIN. TECHNIQUE: Portable upright AP view of the chest was obtained. COMPARISON: 02/01/2017. FINDINGS: Cardiac silhouette remains enlarged. Prominence of pulmonary vasculature. Vague perihilar opacities suggested. Minimal bandlike opacity at the left lung base persists. No large effusion or pneumothorax. Osseous structures normal. Cholecystectomy clips noted. IMPRESSION: 1. Cardiomegaly with pulmonary vascular prominence and minimal vague perihilar opacities suggest volume overload with possible developing pulmonary edema. 2. Persistent left basilar opacity likely atelectasis or scarring. Impression Assessment and Plan 51M with a PMHx of seizure disorder s/p TBI p/w increasing seizure activity and a fever [employer] of [address] concerning for Proctitis. Patient started on Empiric Vanc and Zosyn. Neurology consulted regarding anticonvulsant med dosing. Follow up blood cultures, temps and look for clinical improvement on current Abx regimen. Increased Seizure activity in the setting of a known traumatic brain injury. Recently DC'd from [facility] lower anticonvulsant medication Gabapentin 100mg TID (lowered from 100mg QAm and 300mg QPM) and Lamotrigine 300mg BID (lowered from 325) dosage. Will continue home anticonvulsant meds. c/w Felbamate 600mg PO BID c/w Lamotrigine 300mg BID c/w Vimpat 200mg BID c/w Cobazam BID Appreciate Neurology recs. Possible encephalitis 2/2 to Proctitis Pt denies any abdominal or rectal pain and denies history of diarrhea. [facility] did report a fever of 102F and he received Tylenol [employer]IST. WBC are elevated. STAT RAD read of CT shows possible proctitis or enteritis and trace pleural effusions. Will start on Vanc. and Zosyn. Day #0 Follow up Blood Cultures. Hematuria RBCs in urine but CT didn't show any evidence of stones. Per EMR pt has a history of renal stones. This may be related to Proctitis on CT findings. Depression/Anxiety c/w Buspar, Prozac, GERD c/w PPI daily Dispo: Obs, Med Surg. Diet: Regular (mechanical soft) FULL CODE Attending addendum: I have physically seen this patient, have supervised the medical residents activities, and agree with the H&P unless as otherwise noted. Assessment and Plan: Seizure disorder/traumatic brain injury/question of tremors versus seizure noted at [facility]-- Continue current dosing of felbamate, lamotrigine, Vimpat and Cobazam. Consult neurology was begun in the ED, and continue during hospitalization Proctitis/noted on CT-- Placed on vancomycin IV and Zosyn IV May be contributing to physiologic stress and potentiation of seizure activity Hematuria-- CT negative for stones May have a prostatitis associated with proctitis Follow urine culture and sensitivity Follow blood cultures Coverage with above antibiotics Depression/anxiety-- continue BuSpar and Prozac. GERD-- Continue with pantoprazole. Level of Care Med/Surg Advanced Directives Existing Advance Directive: No Existing Living Will: No Existing Power of Expander: No Resuscitation Status FULL RESUSCITATION VTE Prophylaxis VTE Risk Assessment Done? Y/N: Yes Risk Level: Moderate Given or contraindicated: SCD's Resident Involvement: Resident Care Provided Care Provided: Adult Hospital Medicine
[2017-02-19] MEDS ORDERED: ONDANSETRON INJ 2 MG/ML 2 ML VIAL IV PRN (00:45)
[2017-02-19] MEDS ORDERED: POLYETHYLENE (MIRALAX) 17 GM PACK PO PRN (00:45)
[2017-02-19] MEDS ORDERED: MAGNESIUM HYDROXIDE SUSP 30 ML UDC PO PRN ×2 (00:45→01:00)
[2017-02-19] MEDS ORDERED: ALUMINUM/MAGNESIUM/SIMETH (MAALOX MAX) 30 ML UDC PO PRN (00:45)
[2017-02-19] MEDS ORDERED: ZOLPIDEM TARTRATE 5 MG TAB PO PRN ×2 (00:45)
[2017-02-19] MEDS ORDERED: LOPERAMIDE HCL 2 MG CAP PO PRN (01:00)
[2017-02-19] MEDS ORDERED: TRAMADOL HCL 50 MG TAB PO PRN (01:00)
[2017-02-19] MEDS ORDERED: IV FLUIDS COMPLETED PRN (01:00)
[2017-02-19] MEDS ORDERED: ACETAMINOPHEN 500 MG TAB PO PRN (01:00)
--- NOTE | 2017-02-19 02:00 | NUR ---
OBS note: Patient arrived to room 458 via litter on Observation status. VS and assessment completed. See EMR. Oriented to room and call isaacs. Patient has chronic tremors and myoclonic ataxic jerking. Patient was able to answer some questions, but slow to speak. Seizure pads in place. Call isaacs in reach. Bed alarm on.
[2017-02-19 02:29] VITALS: BP 110/63; PULSE 65; TEMP 36.7; O2SAT 94; Ht 182.9 cm; Wt 84.7 kg
[2017-02-19] MEDS: [UNRECOGNIZED DRUG - OTHER] SCH ×2 (03:00→08:00)
[2017-02-19] MEDS ORDERED: PIPERACILL/TAZOBAC IV 3.375 GM in DEXTROSE 5% 100ML IV ONE (03:00)
[2017-02-19] MEDS: [UNRECOGNIZED DRUG - REMARK] SCH ×2 (03:00→08:00)
[2017-02-19] MEDS ORDERED: PIPERACILL/TAZOBAC CONSULT ACTIVE PRN (03:00)
[2017-02-19] MEDS ORDERED: VANCOMYCIN CONSULT ACTIVE PRN (03:00)
[2017-02-19] MEDS ORDERED: VANCOMYCIN IV 2,250 MG in SODIUM CHLORIDE 0.9% 500ML 500 ML IV SCH (04:00)
[2017-02-19] MEDS: PANTOprazole SOD 40 MG TAB PO SCH (06:33)
--- NOTE | 2017-02-19 06:45 | DIAGNOSTIC IMAGING REPORT ---
ABD/PELVIS WITHOUT FOR STONE HISTORY: 51 years-old Male HEMATURIA acute fever with hematuria COMPARISON: CT abdomen and pelvis 10/20/[address] abdomen and pelvis 07/01/2013 TECHNIQUE: Multiple axial CT images of the abdomen and pelvis were obtained without contrast. A dose lowering technique was used consistent with the principals of STEFANIE. FINDINGS: Trace left pleural effusion. Subsegmental bibasilar consolidative and groundglass opacities are noted in addition to respiratory motion. Calcification of the right lung base suggests granuloma. No pneumatosis or pneumoperitoneum. Study is moderately motion degraded. Imaged inferior cardiac chambers are mildly enlarged. Prior cholecystectomy. Ill-defined low attenuating lesion of the left hepatic lobe, 1.3 cm appears unchanged dating back to 07/01/2013. The previously described low attenuating lesion of the right hepatic lobe is not well seen on today's study. No intrahepatic biliary ductal dilation. Spleen, pancreas and adrenal glands are within normal limits. Nonspecific bilateral mild perinephric stranding. No definite renal calculi or hydronephrosis. Ureters are unremarkable. There is a Ayala catheter present within a collapsed urinary bladder lumen. Mild wall thickening of the bladder is noted with perivesicular stranding. Air within the nondependent bladder is likely secondary to instrumentation. No aortic aneurysm or bulky adenopathy identified. There is no bowel obstruction. There are a few scattered air-fluid levels noted throughout nondilated small bowel. Moderate rectal wall thickening with minimal surrounding stranding. Normal appendix. Nonspecific mild subcutaneous stranding of the mons pubis. Multilevel degenerative changes of the spine. Chronic appearing bilateral pars defects at L5 without spondylolisthesis. Large Schmorl's node involves the superior endplate of L2, unchanged. IMPRESSION: 1. No renal calculi or hydronephrosis. 2. Moderate wall thickening of the rectum suggests proctitis. 3. A few scattered air-fluid levels throughout nondilated small bowel may reflect enteritis or mild ileus. 4. Normal appendix. No bowel obstruction. 5. Trace left pleural effusion with bibasilar consolidative and groundglass opacities suggesting atelectasis or pneumonitis. 6. Ayala catheter within a partially collapsed bladder. Wall thickening of the bladder with surrounding inflammatory stranding also noted. Correlate with urinalysis to exclude cystitis. The above report was generated using voice recognition software. It may contain grammatical, syntax or spelling errors. Electronically signed by: Yogesh Keen M.D. 02/19/2017 6:44 AM Dictated Date/Time: 02/19/2017 6:36 AM
[2017-02-19 07:15] LABS: PTT PATIENT 43.1 SECONDS (21.0-31.0)
--- NOTE | 2017-02-19 08:00 | NUR ---
Observation note:Patient alert to person only. very drowsy this am. MD in to see and aware. EEG ordered. Vitals stable. sats wnl on room air. No nausea. Tolerating diet. Set up to eat. Saline locked. Ayala intact. Saline locked intermittent antibiotic. Max assist with turning. Will call patients father to discuss medication that need brought in. Discharge ongoing. Discharge plan uncertain
--- NOTE | 2017-02-19 08:16 | Neurology Consultation ---
Neurology Consultation Date of Consultation: Feb 19, 2017. Attending Physician: Norris Latif M.D. Primary Care Physician: No Doctor, Assigned Reason for Consultation: Seizure disorder History of Present Illness The patient is a 51-year-old male who is known to the neurology service. He has a history of refractory epilepsy, severe ataxic tremor, and intellectual disabilities. I last evaluated this patient during an admission to the hospital 3 weeks ago. He was felt to be a bit overmedicated at that time and the dosages of his Lamictal and gabapentin were reduced. Unfortunately, the patient presents with a somewhat altered neurological status recently. He has been residing at [facility] and has reportedly exhibited a fever. He has exhibited an increasing frequency of his ataxic tremor with associated jerking movements of the limbs as well as some associated altered level of responsiveness potentially worrisome for seizure activity. The medical record indicates that he may have proctitis. He was noted to have a fever of 102 while at [facility]. Currently, the patient is somewhat somnolent. He is a very limited historian. He gets brief one-word answers but quickly falls back to sleep and does not really cooperate with questioning or the neurological examination to any significant degree. He does appear to be a bit tremulous, intermittently but otherwise does not exhibit any obvious seizure activity. Past Medical/Surgical History Medical Problems: (1) Abdominal pain Status: Acute (2) Acute electrocardiogram changes Status: Acute (3) Altered mental status Status: Acute (4) Change in mental status Status: Acute (5) Closed head injury Status: Acute (6) Closed head injury Status: Acute (7) Closed head injury Status: Acute (8) Closed head injury Status: Acute (9) Contusion of lower back Status: Acute (10) Contusion of occipital region of scalp Status: Acute (11) Degenerative arthritis of cervical spine Status: Acute (12) [id number] (DTP) vaccination Status: Acute (13) Fall Status: Acute (14) Fall Status: Acute (15) Fall Status: Acute (16) Fall Status: Acute (17) Fall Status: Acute (18) Fall Status: Acute (19) Fall Status: Acute (20) Fall Status: Acute (21) Fall Status: Acute (22) Fall from bed Status: Acute (23) Fever of unknown origin Status: Acute (24) Head injury, closed Status: Acute (25) Hemorrhoids Status: Acute (26) Laceration of scalp Status: Acute (27) Leukocytosis Status: Acute (28) Medication reaction Status: Acute (29) Muscle tremor Status: Acute (30) Pneumonia Status: Acute (31) Seizure Status: Acute (32) Seizure Status: Acute (33) Weakness Status: Acute (34) Weakness Status: Acute Family History Noncontributory Social History Smoking Status: Former smoker Smokeless Tobacco Use: No Alcohol Use: none Drug Use: none Marital Status: single Housing Status: assisted living Occupation Status: disabled Allergies Coded Allergies: Sulfamethoxazole w/Trimethoprim (Verified Allergy, Unknown, dizziness and increase in tremor, 02/01/17) Grapefruit (Verified Adverse Reaction, Unknown, INTERACTS WITH OTHER MEDS , 02/01/17) Ibuprofen (Verified Adverse Reaction, Unknown, avoids secondary to reactions with other medications, 01/23/17) Levetiracetam (Verified Adverse Reaction, Unknown, AGITATION, 02/01/17) Current Inpatient Medications Current Inpatient Medications Medications (Trade) Dose Ordered Sig/Hugh Route Start Time Stop Time Status Last Admin Dose Admin Acetaminophen (Tylenol Tab) 650 mg Q4H PRN PO 02/19/17 00:45 03/21/17 00:44 Al Hydrox/Mg Hydrox/Simethicone (Maalox Max Susp) 15 ml Q4H PRN PO 02/19/17 00:45 03/21/17 00:44 Magnesium Hydroxide (Milk Of Magnesia Susp) 30 ml Q6H PRN PO 02/19/17 00:45 03/21/17 00:44 Polyethylene (Miralax Powder Packet) 17 gm DAILY PRN PO 02/19/17 00:45 03/21/17 00:44 Zolpidem Tartrate (Ambien Tab) 5 mg HSZ PRN PO 02/19/17 00:45 03/21/17 00:44 Ondansetron HCl (Zofran Inj) 4 mg Q6H PRN IV 02/19/17 00:45 03/21/17 00:44 Heparin Sodium (Porcine) (Heparin Sq 5000 Unit/0.5ml) 5,000 unit Q12H SQ 02/19/17 00:45 03/21/17 00:44 UNV Vancomycin HCl 1000 mg/Sodium Chloride 270 ml @ 125 mls/hr Q12 IV 02/19/17 09:00 03/01/17 08:59 UNV Piperacillin Sod/ Tazobactam Sod 3.375 gm/Dextrose 115 ml @ 28.75 mls/ hr Q8H IV 02/19/17 08:00 03/01/17 07:59 Buspirone HCl (BusPAR TAB) 15 mg QAM PO 02/19/17 08:00 03/21/17 08:59 Buspirone HCl (BusPAR TAB) 30 mg HS PO 02/19/17 21:00 03/21/17 20:59 Docusate Sodium (coLACE CAP) 100 mg BID PO 02/19/17 08:00 03/21/17 08:59 Fluoxetine HCl (Prozac Cap) 20 mg DAILY PO 02/19/17 08:00 03/21/17 08:59 Gabapentin (Neurontin Cap) 100 mg TID PO 02/19/17 08:00 03/21/17 08:59 Pantoprazole Sodium (Protonix Tab) 40 mg DAILYBB PO 02/19/17 06:30 03/21/17 06:59 02/19/17 06:33 40 MG Propranolol HCl (Inderal LA Cap) 80 mg BID PO 02/19/17 08:00 03/21/17 08:59 Senna/Docusate Sodium (Senokot S Tab) 1 tab HS PO 02/19/17 21:00 03/21/17 20:59 Tramadol HCl (Ultram Tab) 50 mg Q4H PRN PO 02/19/17 01:00 03/21/17 00:59 Miscellaneous Information (Order Awaiting Action) 1 ea QS N/A 02/19/17 08:00 03/21/17 07:59 Lacosamide (Vimpat Tab) 200 mg BID PO 02/19/17 08:00 03/21/17 08:59 Miscellaneous Information (Order Awaiting Action) 1 ea QS N/A 02/19/17 03:00 03/21/17 02:59 Loperamide HCl (Imodium Cap) 4 mg DAILY PRN PO 02/19/17 01:00 03/21/17 00:59 Multivitamins/ Minerals (Multivitamin W/ Minerals Tab) 1 tab QAM PO 02/19/17 08:00 03/21/17 07:59 Miscellaneous Information (Order Awaiting Action) 1 ea QS N/A 02/19/17 03:00 03/21/17 02:59 Miscellaneous (Iv Fluids Completed) 1 ea PRN PRN N/A 02/19/17 01:00 02/19/18 00:59 Vancomycin HCl (Consult) 1 ea UD PRN N/A 02/19/17 03:00 03/21/17 02:59 Piperacillin Sod/ Tazobactam Sod (Consult) 1 ea UD PRN N/A 02/19/17 03:00 03/21/17 02:59 Review of Systems Constitutional: Significant for fever Neurological: As per history of present illness Physical Exam Vital Signs (Past 24 Hrs): Date Time Temp Pulse Resp B/P (MAP) Pulse Ox O2 Delivery O2 Flow Rate FiO2 02/19/17 02:29 36.7 65 18 110/63 94 Room Air 02/19/17 01:25 37.0 62 20 108/62 96 02/19/17 00:42 67 02/19/17 00:28 84 20 110/60 92 Room Air 02/18/17 23:29 37.1 72 20 110/60 92 Room Air 02/18/17 21:52 86 20 110/79 92 Room Air 02/18/17 20:23 87 20 101/75 93 Room Air 02/18/17 20:14 93 Room Air 02/18/17 19:50 89 02/18/17 19:28 37.2 90 20 101/75 94 Room Air The patient is a well-developed, well-nourished, middle-aged to elderly male. He is lying comfortably in bed and does not appear to be in significant distress. He is lethargic but oriented to person and hospital. Not oriented to date. Recent and remote memory seemed to be impaired although difficult to assess at this time. Attention and concentration are impaired. Patient does give simple one-word answers to questions. Assessment speech is otherwise limited. Patient exhibits a normal vocabulary although fund of knowledge is difficult to assess. Pupils equal round reactive to light and accommodation. Eye movements intact. No nystagmus. There is no facial droop. Palate elevates to midline. Tongue protrudes to midline. Sensation intact for the limbs. Deep tendon reflexes are intact and symmetrical. Carotid pulses normal bilaterally, no bruits to auscultation. Muscle strength normal for the arms and legs. Muscle tone normal for the arms and legs. No atrophy. Patient exhibits intermittent tremor of both arms which is resting and action components. Laboratory Results Past 24 Hours: 02/18/17 19:08 Red Blood Count 4.38, Mean Corpuscular Volume 95.4, Mean Corpuscular Hemoglobin 32.2, Mean Corpuscular Hemoglobin Concent 33.7, Mean Platelet Volume 9.7, Neutrophils (%) (Auto) 83.4, Lymphocytes (%) (Auto) 7.9, Monocytes (%) (Auto) 7.2, Eosinophils (%) (Auto) 1.1, Basophils (%) (Auto) 0.1, Neutrophils # (Auto) 11.62, Lymphocytes # (Auto) 1.10, Monocytes # (Auto) 1.01, Eosinophils # (Auto) 0.16, Basophils # (Auto) 0.02 02/18/17 19:08 Test 02/18/17 19:08 02/18/17 20:00 02/18/17 20:14 02/18/17 20:15 White Blood Count 13.95 K/uL (4.8-10.8) Red Blood Count 4.38 M/uL (4.7-6.1) Hemoglobin 14.1 g/dL (14.0-18.0) Hematocrit 41.8 % (42-52) Mean Corpuscular Volume 95.4 fL (80-100) Mean Corpuscular Hemoglobin 32.2 pg (25-34) Mean Corpuscular Hemoglobin Concent 33.7 g/dl (32-36) Platelet Count 176 K/uL (130-400) Mean Platelet Volume 9.7 fL (7.4-10.4) Neutrophils (%) (Auto) 83.4 % Lymphocytes (%) (Auto) 7.9 % Monocytes (%) (Auto) 7.2 % Eosinophils (%) (Auto) 1.1 % Basophils (%) (Auto) 0.1 % Neutrophils # (Auto) 11.62 K/uL (1.4-6.5) Lymphocytes # (Auto) 1.10 K/uL (1.2-3.4) Monocytes # (Auto) 1.01 K/uL (0.11-0.59) Eosinophils # (Auto) 0.16 K/uL (0-0.5) Basophils # (Auto) 0.02 K/uL (0-0.2) RDW Standard Deviation 47.0 fL (36.4-46.3) RDW Coefficient of Variation 13.6 % (11.5-14.5) Immature Granulocyte % (Auto) 0.3 % Immature Granulocyte # (Auto) 0.04 K/uL (0.00-0.02) Anion Gap 6.0 mmol/L (3-11) Est Creatinine Clear Calc Drug Dose 98.6 ml/min Estimated GFR () 102.3 Estimated GFR (Non- 88.3 BUN/Creatinine Ratio 16.8 (10-20) Calcium Level 8.8 mg/dl (8.5-10.1) Total Bilirubin 0.4 mg/dl (0.2-1) Direct Bilirubin < 0.1 mg/dl (0-0.2) Aspartate Amino Transf (AST/SGOT) 15 U/L (15-37) Alanine Aminotransferase (ALT/SGPT) 29 U/L (12-78) Alkaline Phosphatase 119 U/L (45-117) Total Creatine Kinase 48 U/L (39-308) Total Protein 7.2 gm/dl (6.4-8.2) Albumin 3.6 gm/dl (3.4-5.0) Lipase 321 U/L (73-393) Urine Color YELLOW Urine Appearance CLEAR (CLEAR) Urine pH >= 9.0 (4.5-7.5) Urine Specific [place] 1.021 (1.000-1.030) Urine Protein NEG (NEG) Urine Glucose (UA) NEG (NEG) Urine Ketones NEG (NEG) Urine Occult Blood 2+ (NEG) Urine Nitrite NEG (NEG) Urine Bilirubin NEG (NEG) Urine Urobilinogen NEG (NEG) Urine Leukocyte Esterase TRACE (NEG) Urine WBC (Auto) 1-5 /hpf (0-5) Urine RBC (Auto) >30 /hpf (0-4) Urine Hyaline Casts (Auto) 1-5 /lpf (0-5) Urine Epithelial Cells (Auto) 0-5 /lpf (0-5) Urine Bacteria (Auto) NEG (NEG) Pro-B-Type Natriuretic Peptide 87 pg/ml (0-900) Lactic Acid Level 1.3 mmol/L (0.4-2.0) Test 12/17/17 22:04 02/19/17 06:48 Influenza Type A Antigen Neg for Influ A (NEG) Influenza Type B Antigen Neg for Influ B (NEG) Prothrombin Time 10.6 SECONDS (9.0-12.0) Prothromb Time International Ratio 1.0 (0.9-1.1) Activated Partial Thromboplast Time 43.1 SECONDS (21.0-31.0) Partial Thromboplastin Ratio 1.7 Impression This is a 51-year-old male who is well-known to the neurology service. He has a history of refractory epilepsy, severe ataxic tremor, and intellectual disabilities. He has been admitted to the hospital with perhaps some alteration in his neurological status characterized by an increase in his ataxic tremor with some associated alteration in level of awareness potentially consistent with breakthrough seizures occurring in the context of a high fever presumably related to proctitis. Plan I would obtain a routine EEG. Increase patient's dosage of Lamictal 400 mg twice daily Please continue this patient's other outpatient anticonvulsants. Thank you for the consult
[2017-02-19] MEDS: PROPRANOLOL HCL 80 MG LA CAP PO SCH ×2 (08:27→20:25)
[2017-02-19] MEDS: PIPERACILL/TAZOBAC IV 3.375 GM in DEXTROSE 5% 100ML 100 ML IV SCH ×3 (08:30→23:18)
[2017-02-19] MEDS: GABAPENTIN 100 MG CAP PO SCH ×3 (08:33→20:24)
[2017-02-19] MEDS: FLUOXETINE HCL 20 MG CAP PO SCH (08:34)
[2017-02-19] MEDS: BusPIRone 15 MG TAB PO SCH ×2 (08:34→20:24)
[2017-02-19] MEDS: DOCUSATE SODIUM 100 MG CAP PO SCH ×2 (08:34→20:24)
[2017-02-19] MEDS: LACOSAMIDE 50 MG TAB PO SCH ×2 (08:35→20:25)
[2017-02-19] MEDS: CEROVITE ADV FORMULA TAB PO SCH (08:35)
[2017-02-19] MEDS: HEPARIN SOD 5000 UNIT/0.5 ML CARP SQ SCH ×2 (08:42→20:27)
[2017-02-19 08:52] VITALS: BP 110/63; PULSE 66; TEMP 36.8; O2SAT 94
--- NOTE | 2017-02-19 09:06 | Pharmacy Progress Note ---
Pharmacy Abx Dose Short Note Date of Service Feb 19, 2017. Assessment & Plan Assessment * 51 year old male receiving vancomycin and Zosyn IV for treatment of proctitis * Day # 1 of antimicrobial therapy. * Overnight RPh had given vancomycin 2250mg (25mg/kg) IV load * est CrCl ~99cc/min Plan Vancomycin * Maintenance dose: 1750mg (~20.7mg/kg) IV Q 12 hours * Goal trough level for proctitis : 10 to 20 mcg/mL * Trough level ordered for: 02/21/17 w/ th dose * P'kinetic estimates: Vd 0.7L/kg; half-life ~8-9 hours Zosyn * Continue 3.375g extended infusion IV Q 8 hours for eCrCl > 20 Pharmacy will continue to follow and will adjust dose/frequency as necessary. Thank you.
--- NOTE | 2017-02-19 10:06 | EEG Procedure Note ---
EEG Procedure Note Date of Service Feb 19, 2017. Start / End Times Start Time: 9:04 AM End Time: 9:25 AM Referring Physician Willian Rashid History This is a 51-year-old male with known epilepsy who presents with altered mental status. EEG for further evaluation of possible seizure etiology. Home Medication List Scheduled Buspirone Hcl (Buspar), 15 MG PO QAM Buspirone Hcl (Buspar), 30 MG PO HS Docusate Sodium (Colace), 100 MG PO BID Felbamate (Felbamate), 600 MG PO BID Fluoxetine Hcl (Prozac), 20 MG PO DAILY Gabapentin (Gabapentin), 100 MG PO TID Lacosamide (Vimpat), 200 MG PO BID Lamotrigine (Lamotrigine Er), 300 MG PO Q12 Multiple Vitamins W/ Minerals (Preservision Areds 2), 2 CAP PO QAM Pantoprazole (Protonix), 40 MG PO DAILYBB Propranolol Hcl (Propranolol Hcl Er), 80 MG PO BID Sennosides-Docusate Sodium (Senokot S), 1 TAB PO HS [Clobazam], 5 MG PO Q12 Scheduled PRN Acetaminophen (Tylenol), 500 MG PO Q4H PRN for Pain Alum & Mag Hydrox-Simethicone (Antacid & Antigas 200-200-20 mg/5Ml), 30 ML PO Q6 PRN for Loperamide Hcl (Imodium A-D), 4 MG PO UD PRN for Diarrhea Magnesium Hydroxide (Milk Of Magnesia), 30 ML PO UD PRN for Constipation Neomycin/Polymyx/Bacitr (Neosporin), 1 APPL TOP BID PRN for CUTS,SCRAPES, ABRASIONS Tramadol (Ultram), 50 MG PO Q4H PRN for Pain Inpatient Medication List Current Inpatient Medications Medications (Trade) Dose Ordered Sig/Hugh Route Start Time Stop Time Status Last Admin Dose Admin Acetaminophen (Tylenol Tab) 650 mg Q4H PRN PO 02/19/17 00:45 03/21/17 00:44 Al Hydrox/Mg Hydrox/Simethicone (Maalox Max Susp) 15 ml Q4H PRN PO 02/19/17 00:45 03/21/17 00:44 Magnesium Hydroxide (Milk Of Magnesia Susp) 30 ml Q6H PRN PO 02/19/17 00:45 03/21/17 00:44 Polyethylene (Miralax Powder Packet) 17 gm DAILY PRN PO 02/19/17 00:45 03/21/17 00:44 Zolpidem Tartrate (Ambien Tab) 5 mg HSZ PRN PO 02/19/17 00:45 03/21/17 00:44 Ondansetron HCl (Zofran Inj) 4 mg Q6H PRN IV 02/19/17 00:45 03/21/17 00:44 Heparin Sodium (Porcine) (Heparin Sq 5000 Unit/0.5ml) 5,000 unit Q12H SQ 02/19/17 09:00 03/21/17 08:59 02/19/17 08:42 5,000 UNIT Vancomycin HCl 1750 mg/Sodium Chloride 535 ml @ 200 mls/hr Q12H IV 02/19/17 16:00 03/01/17 15:59 Piperacillin Sod/ Tazobactam Sod 3.375 gm/Dextrose 115 ml @ 28.75 mls/ hr Q8H IV 02/19/17 08:00 03/01/17 07:59 02/19/17 08:30 28.75 MLS/HR Buspirone HCl (BusPAR TAB) 15 mg QAM PO 02/19/17 08:00 03/21/17 08:59 02/19/17 08:34 15 MG Buspirone HCl (BusPAR TAB) 30 mg HS PO 02/19/17 21:00 03/21/17 20:59 Docusate Sodium (coLACE CAP) 100 mg BID PO 02/19/17 08:00 03/21/17 08:59 02/19/17 08:34 100 MG Fluoxetine HCl (Prozac Cap) 20 mg DAILY PO 02/19/17 08:00 03/21/17 08:59 02/19/17 08:34 20 MG Gabapentin (Neurontin Cap) 100 mg TID PO 02/19/17 08:00 03/21/17 08:59 02/19/17 08:33 100 MG Pantoprazole Sodium (Protonix Tab) 40 mg DAILYBB PO 02/19/17 06:30 03/21/17 06:59 02/19/17 06:33 40 MG Propranolol HCl (Inderal LA Cap) 80 mg BID PO 02/19/17 08:00 03/21/17 08:59 02/19/17 08:27 80 MG Senna/Docusate Sodium (Senokot S Tab) 1 tab HS PO 02/19/17 21:00 03/21/17 20:59 Tramadol HCl (Ultram Tab) 50 mg Q4H PRN PO 02/19/17 01:00 03/21/17 00:59 Miscellaneous Information (Order Awaiting Action) 1 ea QS N/A 02/19/17 08:00 03/21/17 07:59 Lacosamide (Vimpat Tab) 200 mg BID PO 02/19/17 08:00 03/21/17 08:59 02/19/17 08:35 200 MG Miscellaneous Information (Order Awaiting Action) 1 ea QS N/A 02/19/17 03:00 03/21/17 02:59 Loperamide HCl (Imodium Cap) 4 mg DAILY PRN PO 02/19/17 01:00 03/21/17 00:59 Multivitamins/ Minerals (Multivitamin W/ Minerals Tab) 1 tab QAM PO 02/19/17 08:00 03/21/17 07:59 02/19/17 08:35 1 TAB Miscellaneous Information (Order Awaiting Action) 1 ea QS N/A 02/19/17 03:00 03/21/17 02:59 Miscellaneous (Iv Fluids Completed) 1 ea PRN PRN N/A 02/19/17 01:00 02/19/18 00:59 Vancomycin HCl (Consult) 1 ea UD PRN N/A 02/19/17 03:00 03/21/17 02:59 Piperacillin Sod/ Tazobactam Sod (Consult) 1 ea UD PRN N/A 02/19/17 03:00 03/21/17 02:59 Description This is a 21 electrode EEG with a single channel dedicated to limited EKG. The electrodes were placed in accordance with the International 10-20 system. Patient was noted on video to have severe shaking/tremor is causing movement artifact that frequently presented as generalized rhythmic theta activity with no evolution. At the start of the recording the patient wasn't reported altered mental status. Background was poorly organized with a poorly formed anterior to posterior gradient. Background was composed of predominantly theta frequencies with intermixed faster frequencies. Rarely there was seen well formed moderate amplitude posterior dominant rhythm of 6-7 Hz. Frequent generalized semi- rhythmic theta activity appeared to be more related to generalized shaking tremors with no evolution or background slowing afterwards. Interpretation This is an abnormal routine EEG secondary to mild to moderate background disorganization and slowing. There was no electrographic seizures or epileptiform discharges. Clinical Correlation This EEG indicates mild to moderate encephalopathy of nonspecific etiology.
--- NOTE | 2017-02-19 10:50 | Progress Note ---
Progress Note Date of Service Feb 19, 2017. Progress Note ID Consult Dictated #[id number] A/P: 1. Leukocytosis - suspect reactive due to seizure -follow cultures, if negative, can stop abx -thank you
--- NOTE | 2017-02-19 12:00 | NUR ---
Observation note: Patient resting in bed. neurology and ID in to see patient. EEG ordered for drowsiness Ayala intact. Blood cultures pending. Turn q2 max assist. Saline locked. No pain. Discharge ongoing.
--- NOTE | 2017-02-19 12:13 | INFECT. DISEASE CONSULTATION ---
DATE OF CONSULTATION: 02/19/2017 51-year-old gentleman worsening seizures. He does have a history of seizure for which he follows with neurology. He was evaluated by neurology during this admission. He reportedly had a temperature of 102 degrees at home. He was placed empirically on vancomycin and Zosyn. He appears to be tolerating it well. His lactic acid is normal. His white blood cell count was mildly elevated at 13.9. His urinalysis is negative. Flu swab was negative. Blood cultures were ordered and pending. A CAT scan of the abdomen and pelvis was negative for infectious etiology. Chest x-ray showed atelectasis. Infectious diseases was consulted for leukocytosis. Medical history significant for change in mental status, chronic seizure disorder, hydronephrosis with ureteral stones and mild mental retardation, Tegretol toxicity and resting tremor. FAMILY HISTORY: Noncontributory. SOCIAL HISTORY: Significant for resident at [facility]. ALLERGIES: BACTRIM, IBUPROFEN, KEPPRA. CURRENT MEDICATIONS: BuSpar, Senokot, vancomycin, subQ heparin, Zosyn, Colace, Prozac, Neurontin, propranolol, Vimpat, multivitamins, Protonix, Ultram, Imodium, Tylenol, Maalox, milk of magnesia, MiraLax and Zofran. PHYSICAL EXAMINATION: VITAL SIGNS: He is afebrile, pulse 66, respiratory rate 18, blood pressure 110/63. Oxygen saturation is 94-96% on room air. GENERAL: He is responsive but lethargic. He does not answer questions. HEENT: Mucous membranes are moist. HEART: Regular. I do not auscultate a murmur. LUNGS: Clear with poor inspiratory effort. ABDOMEN: Soft and nondistended. There is no edema. SKIN: Without rash. LABORATORY STUDIES: CBC yesterday reveals a white blood cell count of 13.9, hemoglobin 14.1, platelets 176. Chemistry panel reveals sodium of 138, potassium 3.9, chloride 103, bicarbonate 29, BUN 17, creatinine 0.9, glucose is 93. Lactic acid is 1.3. LFTs are within normal limits. Lipase normal. Urinalysis was negative. Flu swab was negative. Blood cultures are pending. IMAGING: As above. Leukocytosis likely secondary to underlying seizure disorder. He can remain on broad spectrum antibiotics but if cultures are negative within the next 24-48 hours he should be followed off of antibiotics. I suspect his leukocytosis to resolve with treatment of his underlying seizure disorder. MTDD
[2017-02-19] MEDS ORDERED: FELBAMATE 600 MG PO SCH (14:00)
[2017-02-19] MEDS ORDERED: LAMICTAL PO SCH (14:00)
[2017-02-19] MEDS: CLOBAZAM 10 MG PO SCH ×2 (14:09→20:23)
[2017-02-19] MEDS: LAMOTRIGINE 200 MG PO SCH ×2 (14:10→20:24)
--- NOTE | 2017-02-19 15:00 | NUR ---
legal director [facility]: Per request of Dr. Maxwell I call [facility] to reschedule appt -done. Dr. York March 08 at 10:30 am. This info was added to the DC instructions.
--- NOTE | 2017-02-19 15:17 | NUR ---
A:/Patient and family in room. Dr. Maxwell in to see patient and spoke with family. Aware of patient condition. Pharmacist spoke with me about patient medications. Felbamate and Lamictal to come from [facility] pharmacist following. Onfi patients own medications. Medications sent down to pharmacy. Pharmacy holding medications. Will send up as needed.
[2017-02-19 15:24] VITALS: BP 118/73; PULSE 59; TEMP 37; O2SAT 96
[2017-02-19] MEDS: VANCOMYCIN IV 1,750 MG in SODIUM CHLORIDE 0.9% 500ML 500 ML IV SCH (15:37)
--- NOTE | 2017-02-19 16:00 | NUR ---
A: Visitor at bedside. Tremors noted. IV Vancomycin and Zosyn infusing at this time. Seizure precautions maintained. Vital signs stable. Addendum: 02/19/17 at 1841 by Leslee Flores RN This was an observation note.
[2017-02-19] MEDS ORDERED: LAMOTRIGINE 100 MG PO SCH (20:00)
--- NOTE | 2017-02-19 20:00 | NUR ---
Observation note: Resting in bed. Continues with tremors. Seizure precautions maintained. Ate 100% of dinner with assistance from family. Zosyn infusing and almost completed.
[2017-02-19] MEDS: FELBAMATE 600 MG PO SCH (20:23)
[2017-02-19] MEDS: DOCUSATE SODIUM/SENNA 50/8.6MG TAB PO SCH (20:24)
[2017-02-19 23:44] VITALS: BP 144/89; PULSE 82; TEMP 36.5; O2SAT 94
[2017-02-20] VITALS (7 sets, daily range): BP systolic 103–112; BP diastolic 58–64; PULSE 66–78; TEMP 37.1–39.1; O2SAT 94–95
--- NOTE | 2017-02-20 00:25 | NUR ---
ID/OBS Note: patient resting in bed. alert to person only. IV SL. no complaints or signs of pain at this time. lungs clear on RA, no cough, shortness of breath or chest pain. positive bowel sounds, passing flatus, no nausea/vomiting. tolerating regular diet. pulses palpable, no numbness or tingling. patient has constant tremors. childs intact and patent. patient on bedrest. discharge uncertain at this time. call isaacs in reach. seizure precautions in place. bed alarm intact. will continue to monitor.
[2017-02-20] MEDS: ACETAMINOPHEN 325 MG TAB PO PRN ×2 (01:58→16:48)
[2017-02-20] MEDS: VANCOMYCIN IV 1,750 MG in SODIUM CHLORIDE 0.9% 500ML 500 ML IV SCH (04:08)
--- NOTE | 2017-02-20 04:12 | NUR ---
OBS Note: patient resting in bed. patient slightly febrile, see emar. other assessments unchanged. call isaacs in reach. will continue to monitor.
[2017-02-20] MEDS: PANTOprazole SOD 40 MG TAB PO SCH (05:56)
[2017-02-20] MEDS: PIPERACILL/TAZOBAC IV 3.375 GM in DEXTROSE 5% 100ML 100 ML IV SCH (07:51)
--- NOTE | 2017-02-20 08:00 | NUR ---
OBS: Patient alert and oriented x3, CBR. Full assessment done, see EMR. No complaints at this time. Afebrile this AM. No seizure activity noted. Seizure precautions in place. Ayala catheter patent and intact. Tremors noted with movement. VSS on RA. Call isaacs within reach, patient encouraged to ring for assistance. Bed alarm on. Will continue to monitor.
--- NOTE | 2017-02-20 08:19 | Progress Note ---
Progress Note Date of Service Feb 19, 2017. Patient seen at 14:00. Progress Note Discussed with family and updated them on our plan. Neurology increased the lamictal to 400mg. Family was concerned that he was on 325mg befor going down and that this is a large increase. I stated that in his previous admission, gabapentin was also decreased so the cocktail is different. We will monitor how he tolerates this medication change. In regards to his possible infectious process, ID believes, this may be refractory to his seizures. He has not had any fevers in the hospital. May consider stopping antibiotics on the 02/20 and monitoring how he responds. In regards to his urology issue, patient had a childs placed prior to admission and was to see Urology as an outpatient on the of this month. Will reschedule this.
[2017-02-20 08:48] LABS: HEMATOCRIT 39.6 % (42-52); HEMOGLOBIN 13.6 g/dL (14.0-18.0); IG# 0.03 K/uL (0.00-0.02); LYMPH % 7.3 %; LYMPH ABS # 0.33 K/uL (1.2-3.4); MEAN CELL VOLUME 94.5 fL (80-100); MEAN CORPUSCULAR HEMOGLOBIN 32.5 pg (25-34); MEAN CORPUSCULAR HGB CONC 34.3 g/dl (32-36); MEAN PLATELET VOLUME 9.2 fL (7.4-10.4); MONO % 7.9 %; MONO ABS # 0.36 K/uL (0.11-0.59); NEUT % 84.1 %; NEUT ABS # 3.83 K/uL (1.4-6.5); PLATELET COUNT 127 K/uL (130-400); RED CELL DISTRIBUTION WIDTH CV 13.6 % (11.5-14.5); RED CELL DISTRIBUTION WIDTH SD 46.7 fL (36.4-46.3); WHITE BLOOD COUNT 4.55 K/uL (4.8-10.8)
[2017-02-20] MEDS: DOCUSATE SODIUM 100 MG CAP PO SCH ×2 (09:14→20:27)
[2017-02-20] MEDS: BusPIRone 15 MG TAB PO SCH ×2 (09:14→20:29)
[2017-02-20] MEDS: FELBAMATE 600 MG PO SCH ×2 (09:15→21:01)
[2017-02-20] MEDS: PROPRANOLOL HCL 80 MG LA CAP PO SCH ×2 (09:16→20:29)
[2017-02-20] MEDS: CEROVITE ADV FORMULA TAB PO SCH (09:18)
[2017-02-20] MEDS: GABAPENTIN 100 MG CAP PO SCH ×3 (09:18→20:28)
[2017-02-20] MEDS: LACOSAMIDE 50 MG TAB PO SCH ×2 (09:19→20:31)
[2017-02-20] MEDS: FLUOXETINE HCL 20 MG CAP PO SCH (09:19)
[2017-02-20 09:29] LABS: CREATININE 0.85 mg/dl (0.60-1.40)
[2017-02-20] MEDS: CLOBAZAM 10 MG PO SCH ×2 (09:32→20:59)
[2017-02-20] MEDS: LAMOTRIGINE 200 MG PO SCH ×2 (09:32→22:10)
[2017-02-20] MEDS: HEPARIN SOD 5000 UNIT/0.5 ML CARP SQ SCH ×2 (09:37→20:46)
--- NOTE | 2017-02-20 11:59 | Hospitalist Progress Note ---
Hospitalist Progress Note Date of Service Feb 20, 2017. (Kendra Griffin PA-C) Subjective Pt evaluation today including: conversation w/ patient, physical exam, chart review, lab review, review of studies, conversation w/ urban design consultant Pain: None PO Intake: Fair Voiding: no voiding problems, childs catheter in place The patient was seen and examined this morning. Pt reports doing well this morning. He is attempting to eat but is shaking to the point where getting the food to his mouth is quite difficult. He denies that this is large change from when he was admitted. Pt states his stomach feels distended and that he hasn't had a BM x 2-3 days at this point. He reports overnight feeling cold and possibly having episodes of sweats, but reports he did NOT have a fever. Nursing notes he vomited this morning but pt does not recall this. ROS: Denies cp, sob, abd pain, cramping, rectal pain, diarrhea, lightheadedness , dizziness, headache. All other ROS negative unless listed above per HPI. (Kendra Griffin PA-C) Objective Vital Signs Date Time Temp Pulse Resp B/P (MAP) Pulse Ox O2 Delivery O2 Flow Rate FiO2 02/20/17 08:00 Room Air 02/20/17 07:37 37.1 66 16 103/58 (73) 95 Room Air 02/20/17 06:25 37.3 02/20/17 04:08 37.8 02/20/17 02:28 38.0 02/20/17 01:55 39.1 02/19/17 23:44 36.5 82 20 144/89 (107) 94 Room Air 02/19/17 23:15 Room Air 02/19/17 16:00 Room Air 02/19/17 15:24 37.0 59 18 118/73 (88) 96 Room Air (Kendra Griffin PA-C) Physical Exam General Appearance: WD/WN, no apparent distress, + pertinent finding ( generalized tremor worsened with intentional movements) Eyes: PERRL, EOMI ENT: hearing grossly normal, pharynx normal, + pertinent finding (MMM) Neck: supple, no JVD Respiratory/Chest: chest non-tender, lungs clear, no respiratory distress, no accessory muscle use Cardiovascular: regular rate, rhythm, no JVD, no murmur Abdomen: + pertinent finding (+ hypoactive bowel sounds throughout, + distension, nontender to palpation + tympany with percussion. + Indwelling childs cath in place draining clear yellow urine.) Extremities: non-tender, no pedal edema, no calf tenderness Neurologic/Psychiatric: alert, normal mood/affect, oriented x 3, + pertinent finding (generalized tremor involving upper and lower extremities, worse with intentional movements. ) Skin: normal color, warm/dry (Kendra Griffin PA-C) Laboratory Results Last 24 Hours Test 02/20/17 08:03 02/20/17 08:34 Creatinine 0.85 mg/dl Est Creatinine Clear Calc Drug Dose 111.6 ml/min Estimated GFR () 116.1 Estimated GFR (Non- 100.2 White Blood Count 4.55 K/uL Red Blood Count 4.19 M/uL Hemoglobin 13.6 g/dL Hematocrit 39.6 % Mean Corpuscular Volume 94.5 fL Mean Corpuscular Hemoglobin 32.5 pg Mean Corpuscular Hemoglobin Concent 34.3 g/dl Platelet Count 127 K/uL Mean Platelet Volume 9.2 fL Neutrophils (%) (Auto) 84.1 % Lymphocytes (%) (Auto) 7.3 % Monocytes (%) (Auto) 7.9 % Eosinophils (%) (Auto) 0.0 % Basophils (%) (Auto) 0.0 % Neutrophils # (Auto) 3.83 K/uL Lymphocytes # (Auto) 0.33 K/uL Monocytes # (Auto) 0.36 K/uL Eosinophils # (Auto) 0.00 K/uL Basophils # (Auto) 0.00 K/uL RDW Standard Deviation 46.7 fL RDW Coefficient of Variation 13.6 % Immature Granulocyte % (Auto) 0.7 % Immature Granulocyte # (Auto) 0.03 K/uL (Kendra Griffin PA-C) Assessment and Plan 51M with a PMHx of seizure disorder s/p TBI p/w increasing seizure activity and a fever PROVISIONING SPECIALIST of [address]F. [address] concerning for Proctitis. Patient started on Empiric Vanc and Zosyn - . Neurology consulted regarding anticonvulsant med dosing. Follow up blood cultures, temps and look for clinical improvement on current Abx regimen. Increased Seizure activity Hx known traumatic brain injury. - Recently admitted and d/c'd from this facility on 02/06: Gabapentin 100mg TID Lamotrigine XR has been increased to 400 mg BID per neurology recommendations for possible breakthrough seizure activity- confirmed with Dr. Rashid Cobazam 5 mg Q12h Felbamate 600mg PO BID Vimpat 200 mg BID - Neurology on board- appreciate recs - EEG reviewed and is negative for seizure activity Metabolic encephalitis possibly 2/2 to Proctitis - UA reviewed and essentially negative, Ucx not completed at time of admission and pt placed on vanc and zosyn. Pt without rectal pain, lower abdominal pain, diarrhea- So unlikely that this is a true proctitis at this time - Initially had fever and was treated with empiric antibiotics x 48 hrs - overnight had tmax of 39.1 with some fever, chills, and episode of vomiting WBC significantly reduced and no abdominal pain. Will d/c abx at this time and watch overnight. - this may be due to constipation and lack of BM in the past 2 days. Will order lactulose for BM today. - Blood cultures NGTD - Appreciate ID recs Hematuria- resolved - RBCs in urine but CT didn't show any evidence of stones. - Per EMR pt has a history of renal stones. - This may be related to Proctitis on CT findings. HTN - Cont propranolol 80 mg BID Depression/Anxiety - Cont Prozac 20 mg daily and buspar 15 mg QAm and 30 mg QHS GERD - Cont pantoprazole CODE STATUS: Full DVT ppx: heparin subq Dispo: From [facility], will ask CM to assist with dc planning (Kendra Griffin, MICHELLE) I performed a history and physical examination. I reviewed above note and discussed analysis and plan with patient and APC. I answered all of the patient' s questions while I was in the room with the patient. Unsure if patient really suffered from a seizure, however after discussing with family and reviewing records. There is concern that his lamictal may be increased too high (300mg to 400mg). It appears his Lamictal was recently decreased with his gabapentin earlier this month. However, this time, gabapentin remains at a decreased dose. Family is concerned about possibly getting more lethargic. Will monitor how he responds to this change. If not, may consider decreasing his lamictal I do not believe this to be metabolic encephalopathy. I will hold antibiotics today and will monitor patient over the next few days. (Chris Maxwell M.D.)
--- NOTE | 2017-02-20 12:00 | NUR ---
OBS: No change in patient assessment. Seen by JESSIKA and with father at bedside. Ayala catheter remains patent and intact. No seizure activity noted. Call isaacs within reach, encouraged to ring for assistance. Bed alarm on. Will continue to monitor.
[2017-02-20] MEDS ORDERED: LACTULOSE SYRUP 30 GM/45 ML UDP PO ONE (12:45)
--- NOTE | 2017-02-20 14:35 | NUR ---
Case Management- Pt is a readmission from [facility], he was discharged to [facility] 02/06/17. At baseline patient resides in [facility] in [place]. He is usually functionally independent and does not require assistance for ADL's. He has a walker but at baseline he does not need it. Spoke with pts father Marky to review discharge plans, he would like for pt to return to [facility] once medically stable. JANINA Brink [facility] requests update once discharge plans are in place [phone]. Pt will need to be functionally independent prior to return to long-term. Per previous admission notes patient is MR (ID, high functioning), has a mattress spring encaser Coral, through ID. Lorene [facility] reports they will be able to accept pt back. Referral information provided.
--- NOTE | 2017-02-20 14:42 | Progress Note ---
Subjective Date of Service: Feb 20, 2017. Subjective Pt evaluation today including: conversation w/ patient, physical exam, chart review, lab review pt seen in followup, much more awake today, states some abd distention, no pain. denies f/c but temp documented overnight. wbc nml today. no additional seizure noted, on emperic abx, tolerating well. all cultures negative. all remaining ros reviewed and are negative. Problem List Medical Problems: (1) Abdominal pain Status: Acute (2) Acute electrocardiogram changes Status: Acute (3) Altered mental status Status: Acute (4) Change in mental status Status: Acute (5) Closed head injury Status: Acute (6) Closed head injury Status: Acute (7) Closed head injury Status: Acute (8) Closed head injury Status: Acute (9) Contusion of lower back Status: Acute (10) Contusion of occipital region of scalp Status: Acute (11) Degenerative arthritis of cervical spine Status: Acute (12) Ugsyzonyep-[id number]-xtrsdwpat (DTP) vaccination Status: Acute (13) Fall Status: Acute (14) Fall Status: Acute (15) Fall Status: Acute (16) Fall Status: Acute (17) Fall Status: Acute (18) Fall Status: Acute (19) Fall Status: Acute (20) Fall Status: Acute (21) Fall Status: Acute (22) Fall from bed Status: Acute (23) Fever of unknown origin Status: Acute (24) Head injury, closed Status: Acute (25) Hemorrhoids Status: Acute (26) Laceration of scalp Status: Acute (27) Leukocytosis Status: Acute (28) Medication reaction Status: Acute (29) Muscle tremor Status: Acute (30) Pneumonia Status: Acute (31) Seizure Status: Acute (32) Seizure Status: Acute (33) Weakness Status: Acute (34) Weakness Status: Acute Objective Vital Signs Date Time Temp Pulse Resp B/P (MAP) Pulse Ox O2 Delivery O2 Flow Rate FiO2 02/20/17 08:00 Room Air 02/20/17 07:37 37.1 66 16 103/58 (73) 95 Room Air 02/20/17 06:25 37.3 02/20/17 04:08 37.8 02/20/17 02:28 38.0 02/20/17 01:55 39.1 02/19/17 23:44 36.5 82 20 144/89 (107) 94 Room Air 02/19/17 23:15 Room Air 02/19/17 16:00 Room Air 02/19/17 15:24 37.0 59 18 118/73 (88) 96 Room Air Physical Exam General Appearance: WD/WN Eyes: normal inspection ENT: + pertinent finding (mmd) Neck: supple Respiratory/Chest: lungs clear, normal breath sounds, no respiratory distress Cardiovascular: regular rate, rhythm, no edema Abdomen: non tender, soft Extremities: non-tender, no pedal edema Neurologic/Psychiatric: alert, oriented x 3 Skin: normal color, no rash Laboratory Results Item Value Date Time Blood Culture - Preliminary Resulted 02/18/172014 Blood NO GROWTH TO DATE. Blood Culture - Preliminary Resulted 02/18/171999 Blood NO GROWTH TO DATE. Last 24 Hours Test 02/20/17 08:03 02/20/17 08:34 Creatinine 0.85 mg/dl Est Creatinine Clear Calc Drug Dose 111.6 ml/min Estimated GFR () 116.1 Estimated GFR (Non- 100.2 White Blood Count 4.55 K/uL Red Blood Count 4.19 M/uL Hemoglobin 13.6 g/dL Hematocrit 39.6 % Mean Corpuscular Volume 94.5 fL Mean Corpuscular Hemoglobin 32.5 pg Mean Corpuscular Hemoglobin Concent 34.3 g/dl Platelet Count 127 K/uL Mean Platelet Volume 9.2 fL Neutrophils (%) (Auto) 84.1 % Lymphocytes (%) (Auto) 7.3 % Monocytes (%) (Auto) 7.9 % Eosinophils (%) (Auto) 0.0 % Basophils (%) (Auto) 0.0 % Neutrophils # (Auto) 3.83 K/uL Lymphocytes # (Auto) 0.33 K/uL Monocytes # (Auto) 0.36 K/uL Eosinophils # (Auto) 0.00 K/uL Basophils # (Auto) 0.00 K/uL RDW Standard Deviation 46.7 fL RDW Coefficient of Variation 13.6 % Immature Granulocyte % (Auto) 0.7 % Immature Granulocyte # (Auto) 0.03 K/uL Assessment and Plan (1) Leukocytosis Assessment & Plan: suspect related to seizure, rapid resolution, follow cultures if remain negative will follow off of abx .
--- NOTE | 2017-02-20 16:00 | NUR ---
OBS: Patient is alert and oriented x3, slight confusion when talking about the reason that he is here. Lungs clear on room air. IV site in right forearm is saline locked. Denies SOB or CP. Does have complaints that he feels "sweaty", temperature of 38.0, MD notified, tylenol given, see eMAR for details. Patient has c/o feelings "like my stomach is full of air, like a drum". Patient's last BM unknown, Lactulose given during previous shift. Bowel sounds positive, flatus present. Seizure pads on pad d/t history of seizures. Call isaacs in reach, bed in lowest position, bed alarm on, will continue to monitor.
[2017-02-20] MEDS ORDERED: LAMOTRIGINE 100 MG PO SCH (20:00)
--- NOTE | 2017-02-20 20:00 | NUR ---
OBS: Patient assessment remains largely unchanged. Patient did have 1 large diarrhea BM in toilet today, patient stated "my stomach doesn't feel as bad now, does not feel as much like a drum". Ambulated with walker and 2 assist to bathroom. Patient currently sleeping. Call isaacs in reach, bed alarm on, seizure pads in place, bed in lowest position, will continue to monitor.
[2017-02-20] MEDS: DOCUSATE SODIUM/SENNA 50/8.6MG TAB PO SCH (20:30)
--- NOTE | 2017-02-21 | NUR ---
OBS: Patient resting in bed. Alert and oriented x 3, mild MR. Denies pain at this time. VSS. Lungs clear, on room. Ayala draining clear yellow urine. Right forearm saline lock. Plan on being discharged back to [facility] when medically stable. Will continue to monitor.
[2017-02-21 00:02] VITALS: BP 104/63; PULSE 61; TEMP 36.5; O2SAT 97
[2017-02-21] MEDS ORDERED: VANCOMYCIN TROUGH ONE (03:30)
--- NOTE | 2017-02-21 04:00 | NUR ---
OBS: Patient sleeping. Assessment unchanged. Right forearm saline lock. Will continue to monitor.
[2017-02-21] MEDS: PANTOprazole SOD 40 MG TAB PO SCH (06:36)
[2017-02-21 07:22] VITALS: BP 108/63; PULSE 56; TEMP 36.6; O2SAT 95
[2017-02-21 08:00] VITALS: O2SAT 95
--- NOTE | 2017-02-21 08:00 | NUR ---
obs: Pt is a&ox4, vital signs stable Temperature 36.6 degrees celsius, hr 56, rr 16/min, b/p 108/63. O2 sats on room air 95%. Pt ate 100% of breakfast with staff assistance in feeding him, currently pt is resting quietly at times tremors noted, no seizures noted, Pt seizure pads to bilateral bed rails intact. Pt hob elevated to 45 degrees at all times. Pt's caregiver/children's service supervisor from snf at bedside at present. Continue to monitor pt. Call isaacs at direct reach, hourly rounding maintained. Bed alarm on.
[2017-02-21] MEDS: CLOBAZAM 10 MG PO SCH ×2 (08:03→21:06)
[2017-02-21] MEDS: LAMOTRIGINE 200 MG PO SCH (08:03)
[2017-02-21] MEDS: PROPRANOLOL HCL 80 MG LA CAP PO SCH ×2 (08:04→20:49)
[2017-02-21] MEDS: CEROVITE ADV FORMULA TAB PO SCH (08:04)
[2017-02-21] MEDS: FELBAMATE 600 MG PO SCH ×2 (08:04→21:06)
[2017-02-21] MEDS: GABAPENTIN 100 MG CAP PO SCH ×3 (08:04→20:53)
[2017-02-21] MEDS: FLUOXETINE HCL 20 MG CAP PO SCH (08:05)
[2017-02-21] MEDS: BusPIRone 15 MG TAB PO SCH ×2 (08:05→20:54)
[2017-02-21] MEDS: DOCUSATE SODIUM 100 MG CAP PO SCH ×2 (08:05→20:48)
[2017-02-21] MEDS: LACOSAMIDE 50 MG TAB PO SCH ×2 (08:37→20:55)
[2017-02-21] MEDS: HEPARIN SOD 5000 UNIT/0.5 ML CARP SQ SCH ×2 (08:40→21:09)
--- NOTE | 2017-02-21 10:05 | NUR ---
obs: Pt and his building analyst/supervisor/caregiver at bedside are concerned about pt being a bit more fatigued and sleepy during daylight hours compared to prior to hospitalization pt caregiver states his Vimpat and Lamictal XR were both adjusted in the Spring and the Onfi seems to be working well, however the Neurontin was increased earlier and is now back to dose pt was on prior to seeing Dr. Hernandez and they feel it may benefit a review with Dr. Rashid for his medications to be looked at if needing adjusted again, so pt may participate in therapy and stay as functioning as he is able to be during the day time. Continue to monitor pt closely, upper arms and hand and leg tremors noted at times. Seizure precautions maintained, seizure pads to bed rails, no seizures noted. Call isaacs at direct reach, hourly rounding maintained. Bed alarm on.
--- NOTE | 2017-02-21 11:41 | NUR ---
Case Management- Per [facility] they are able to accept pt today if physician would like to send.
--- NOTE | 2017-02-21 12:00 | NUR ---
OBS: Pt is doing well at present, assisted with his meals and able to feed self with staff supervision and set up. Pt denies pain at this time, no seizures noted, occasional tremors noted to upper hands and arms and twitches to legs noted. Pt sitting up in 90 degree angle at present. Continue to monitor pt closely, call isaacs at direct reach, hourly rounding maintained. Bed alarm on. Seizure precautions maintained.
--- NOTE | 2017-02-21 13:30 | Hospitalist Progress Note ---
Hospitalist Progress Note Date of Service Feb 21, 2017. (Kendra Griffin PA-C) Subjective Pt evaluation today including: conversation w/ patient, physical exam, chart review, lab review, review of studies Pain: none PO Intake: good Voiding: childs catheter in place The patient was seen and examined this morning. Pt reports feeling drowsy this morning. He notes he has slightly less of a tremor today but that this is not significantly changed. He slept better last night compared to previously. He reports having a liquid bowel movement yesterday and he feels his bowels are now moving much better, stomach not distended and he is able to eat better. ROS: 6 point ROS reviewed and otherwise negative. (Kendra Griffin PA-C) Objective Vital Signs Date Time Temp Pulse Resp B/P (MAP) Pulse Ox O2 Delivery O2 Flow Rate FiO2 02/21/17 08:00 95 Room Air 02/21/17 07:22 36.6 56 16 108/63 (78) 95 Room Air 02/21/17 04:00 Room Air 02/21/17 00:02 36.5 61 16 104/63 (77) 97 Room Air 02/21/17 00:00 Room Air 02/20/17 16:30 94 Room Air 02/20/17 16:12 38.0 78 18 112/64 (80) 94 Room Air (Kendra Griffin PA-C) Physical Exam Notes: General Appearance: WD/WN, no apparent distress, + pertinent finding ( generalized tremor slightly improved today, still present with intentional movements) Eyes: PERRL, EOMI ENT: hearing grossly normal, pharynx normal, + pertinent finding (MMM) Neck: supple, no JVD Respiratory/Chest: chest non-tender, lungs clear, no respiratory distress, no accessory muscle use Cardiovascular: regular rate, rhythm, no JVD, no murmur Abdomen: + pertinent finding (NABS, nondistended, nontender to palpation, + Indwelling childs cath in place draining clear yellow urine.) Extremities: non-tender, no pedal edema, no calf tenderness Neurologic/Psychiatric: alert, normal mood/affect, oriented x 3, + pertinent finding (improved generalized tremor involving upper and lower extremities, worse with intentional movements. ) Skin: normal color, warm/dry (Kendra Griffin PA-C) Assessment and Plan 51M with a PMHx of seizure disorder s/p TBI p/w increasing seizure activity and a fever LEARNING ADMINISTRATOR of [address] concerning for Proctitis. Patient started on Empiric Vanc and Zosyn - . Neurology consulted regarding anticonvulsant med dosing. Follow up blood cultures, temps and look for clinical improvement on current Abx regimen. Increased Seizure activity Hx known traumatic brain injury. - Recently admitted and d/c'd from this facility on 02/06: Gabapentin 100mg TID Lamotrigine XR has been increased to 400 mg BID per neurology recommendations for possible breakthrough seizure activity on 02/20 Cobazam 5 mg Q12h Felbamate 600mg PO BID Vimpat 200 mg BID - Pt slightly drowsy today - will await neuro recs and see if any other medication dosage adjustments should be made - Neurology on board- appreciate recs - EEG reviewed and is negative for seizure activity Metabolic encephalitis possibly 2/2 to Proctitis - UA reviewed and essentially negative, Ucx not completed at time of admission and pt placed on vanc and zosyn. Pt without rectal pain, lower abdominal pain, diarrhea- So unlikely that this is a true proctitis at this time - Initially had fever and was treated with empiric antibiotics x 48 hrs - afebrile overnight, tmax of 100.4 - lactulose fixed constipation. - Blood cultures NGTD - Appreciate ID recs Hematuria- resolved - RBCs in urine but CT didn't show any evidence of stones. - Per EMR pt has a history of renal stones. - questionable proctitis at time of admission HTN - Cont propranolol 80 mg BID Depression/Anxiety - Cont Prozac 20 mg daily and buspar 15 mg QAm and 30 mg QHS GERD - Cont pantoprazole CODE STATUS: Full DVT ppx: heparin subq Dispo: From [facility], will ask CM to assist with dc planning (Kendra Griffin PA-C) I performed a history and physical examination. I reviewed and agree with above note, while also discussing analysis and plan with patient and APC. I answered all of the patient's questions while I was in the room with the patient. Patient appears to be more lethargic today. After discussing case with Neurologist, will decrease lamictal to 350mg PO BID from 400 mg PO BID. Will monitor how he responds to this change. If not, may consider decreasing his lamictal even further. I do not believe this to be metabolic encephalopathy. I will continue to hold antibiotics today and will monitor patient over the next few days. (Chris Maxwell M.D.)
--- NOTE | 2017-02-21 14:00 | NUR ---
OBS: Pt will be monitored overnight again with medication Lamictal XR adjustment for any further seizure activity and continues to be doing well today, Seizure pads to bilateral bed rails intact, no seizures noted. Pt has been awake much of this shift, gave Keena from [facility] an update on pt and that possible d/c to [facility] in next 1-2 days. Continues to have Ayala catheter for urinary retention hx and will be f/u with urology in next 2 weeks. Continue to monitor pt. Call isaacs at direct reach, hourly rounding maintained. Bed alarm on.
--- NOTE | 2017-02-21 16:00 | NUR ---
OBS: Patient is alert and oriented x4, lungs clear on room air, denies SOB or CP. Ayala catheter intact. IV site in right forearm is saline locked. Seizure pads in place on bed. Patient denies complaints of feeling feverish or having headache. Sitting up in bed talking with caregiver who is at bedside. Tremors noted with movement of extremities. Call isaacs in reach, bed in lowest position, will continue to monitor.
[2017-02-21 16:10] VITALS: BP_SYST 102; BP_SYST 123; BP_DIAS 66; BP_DIAS 74; PULSE 63; PULSE 66; TEMP 36.7; TEMP 37.3; O2SAT 92; O2SAT 97
[2017-02-21 16:15] VITALS: O2SAT 94
[2017-02-21] MEDS ORDERED: LAMOTRIGINE 100 MG PO SCH (20:00)
--- NOTE | 2017-02-21 20:00 | NUR ---
OBS: Patient assessment remains unchanged. Ayala catheter intact. IV site in right forearm is saline locked. Patient is currently sleeping at this time. Call isaacs in reach, bed in lowest position, will continue to monitor.
[2017-02-21] MEDS: DOCUSATE SODIUM/SENNA 50/8.6MG TAB PO SCH (20:49)
[2017-02-21] MEDS: LAMOTRIGINE 25 MG TAB PO SCH (20:50)
[2017-02-21] MEDS: LAMOTRIGINE 100 MG PO SCH (20:51)
[2017-02-21 23:49] VITALS: BP 109/80; PULSE 59; TEMP 36.9; O2SAT 94
--- NOTE | 2017-02-22 | NUR ---
OBS: Patient resting in bed. Alert and oriented x 3, mild MR. Denies pain at this time. VSS. Lungs clear, on room. Ayala draining clear yellow urine. Right forearm saline lock. Plan on being discharged back to [facility] when medically stable. Will continue to monitor.
--- NOTE | 2017-02-22 04:00 | NUR ---
OBS: Patient sleeping. Assessment unchanged. Right forearm saline lock. Will continue to monitor.
[2017-02-22] MEDS: PANTOprazole SOD 40 MG TAB PO SCH (06:25)
[2017-02-22 07:37] VITALS: BP 115/72; PULSE 53; TEMP 36.3; O2SAT 97
[2017-02-22 08:00] VITALS: O2SAT 97
--- NOTE | 2017-02-22 08:00 | NUR ---
OBS: Pt is a&ox4, pt vital signs stable, temperature 36.3 degrees celsius, hr 53, rr 16/min, b/p 115/72, o2 sats on room air 97%. Pt is doing well at present, ate 100% of meal and was given adl care by GEOMATICS PROFESSOR today, pt to be discharged to [facility] at 1500 today via w.c. with [facility] transport. Pt has had no seizures and seizure precautions and padded bed rails maintained. Ayala catheter patent and intact, I/O maintained. Continue to monitor pt closely. Call isaacs at direct reach, hourly rounding maintained. Bed alarm on.
[2017-02-22] MEDS: LAMOTRIGINE 25 MG TAB PO SCH (08:20)
[2017-02-22] MEDS: CLOBAZAM 10 MG PO SCH (08:21)
[2017-02-22] MEDS: DOCUSATE SODIUM 100 MG CAP PO SCH (08:22)
[2017-02-22] MEDS: BusPIRone 15 MG TAB PO SCH (08:22)
[2017-02-22] MEDS: PROPRANOLOL HCL 80 MG LA CAP PO SCH (08:23)
[2017-02-22] MEDS: LACOSAMIDE 50 MG TAB PO SCH (08:23)
[2017-02-22] MEDS: GABAPENTIN 100 MG CAP PO SCH ×2 (08:23→13:51)
[2017-02-22] MEDS: FLUOXETINE HCL 20 MG CAP PO SCH (08:23)
[2017-02-22] MEDS: CEROVITE ADV FORMULA TAB PO SCH (08:24)
[2017-02-22] MEDS: FELBAMATE 600 MG PO SCH (08:24)
[2017-02-22] MEDS: LAMOTRIGINE 100 MG PO SCH (08:25)
[2017-02-22 09:00] LABS: HEMATOCRIT 38.6 % (42-52); MEAN CELL VOLUME 94.8 fL (80-100); MEAN CORPUSCULAR HEMOGLOBIN 31.9 pg (25-34); MEAN CORPUSCULAR HGB CONC 33.7 g/dl (32-36); MEAN PLATELET VOLUME 9.1 fL (7.4-10.4); PLATELET COUNT 130 K/uL (130-400); RED CELL DISTRIBUTION WIDTH CV 13.9 % (11.5-14.5); RED CELL DISTRIBUTION WIDTH SD 48.1 fL (36.4-46.3); WHITE BLOOD COUNT 3.98 K/uL (4.8-10.8)
[2017-02-22] MEDS: HEPARIN SOD 5000 UNIT/0.5 ML CARP SQ SCH (09:29)
--- NOTE | 2017-02-22 10:24 | NUR ---
Case Management- Spoke with MD, pt will be ready for discharge this afternoon. Verified with [facility] they can accept pt today. Admissions working on setting up wheelchair transport, awaiting time. Update provided to JANINA Brink at [facility] and her information given to [facility] for follow up. Addendum: 02/22/17 at 1046 by Daniela Cord[facility] to transport pt at 1500. Unit, pts father and MD made aware.
[2017-02-22 13:13] VITALS: BP 115/72; PULSE 53; TEMP 36.3; O2SAT 97
[2017-02-22] MEDS ORDERED: Lamotrigine PO (14:26)
[2017-02-22] MEDS ORDERED: LAMOTRIGINE PO (14:26)
--- NOTE | 2017-02-22 14:30 | Discharge Instructions ---
Discharge Instructions Date of Service Feb 22, 2017. Admission Reason for Admission: Seizure Disorder Discharge Discharge Diagnosis / Problem: Seizure disorder Discharge Goals Goal(s): Decrease discomfort, Improve function Activity Recommendations Activity Limitations: resume your previous activity . Instructions / Follow-Up Instructions / Follow-Up [facility] to schedule appt -done. Dr. York March 08 at 10:30 am. Neurology Appt for Mar 19 F/U with PCP in 1-2 weeks Patient was hospitalized for probable seizure disorder. Lamcital was increased from 300 to 350mg BID. Will f/u with Neurologist as an outpatient. Current Hospital Diet Patient's current hospital diet: Regular Diet Discharge Diet Recommended Diet: Regular Diet Pending Studies Studies pending at discharge: no Medical Emergencies . Who to Call and When: Medical Emergencies: If at any time you feel your situation is an emergency, please call 911 immediately. . Non-Emergent Contact Non-Emergency issues call your: Primary Care Provider Call Non-Emergent contact if: your pain is not controlled . . "Provider Documentation" section prepared by Chris Maxwell. . VTE Core Measure Inpt VTE Proph given/why not?: SCD's
--- NOTE | 2017-02-22 14:30 | Discharge Summary ---
Discharge Summary Date of Service Feb 22, 2017. Discharge Summary Admission Date: Feb 19, 2017 at 00:47 Discharge Date: Feb 22, 2017 Discharge Disposition: long-term facility Principal Diagnosis: Possible Seizures Immunizations: Have You Had Influenza Vaccine: N/A Influenza Vaccine Date: Nov 03, 2009 History of Tetanus Vaccine?: Yes Tetanus Immunization Date: Jun 04, 2007 History of Pneumococcal: No History of Hepatitis B Vaccine: Unknown Hepatitis Immunization Date: Jun 04, 2007 Consultations: History of Present Illness The patient is a 51-year-old male who is known to the neurology service. He has a history of refractory epilepsy, severe ataxic tremor, and intellectual disabilities. I last evaluated this patient during an admission to the hospital 3 weeks ago. He was felt to be a bit overmedicated at that time and the dosages of his Lamictal and gabapentin were reduced. Unfortunately, the patient presents with a somewhat altered neurological status recently. He has been residing at [facility] and has reportedly exhibited a fever. He has exhibited an increasing frequency of his ataxic tremor with associated jerking movements of the limbs as well as some associated altered level of responsiveness potentially worrisome for seizure activity. The medical record indicates that he may have proctitis. He was noted to have a fever of 102 while at [facility]. Currently, the patient is somewhat somnolent. He is a very limited historian. He gets brief one-word answers but quickly falls back to sleep and does not really cooperate with questioning or the neurological examination to any significant degree. He does appear to be a bit tremulous, intermittently but otherwise does not exhibit any obvious seizure activity. Past Medical/Surgical History Medical Problems: (1) Abdominal pain Status: Acute (2) Acute electrocardiogram changes Status: Acute (3) Altered mental status Status: Acute (4) Change in mental status Status: Acute (5) Closed head injury Status: Acute (6) Closed head injury Status: Acute (7) Closed head injury Status: Acute (8) Closed head injury Status: Acute (9) Contusion of lower back Status: Acute (10) Contusion of occipital region of scalp Status: Acute (11) Degenerative arthritis of cervical spine Status: Acute (12) Ilvcqmzalt-pszpela-qljfcabmk (DTP) vaccination Status: Acute (13) Fall Status: Acute (14) Fall Status: Acute (15) Fall Status: Acute (16) Fall Status: Acute (17) Fall Status: Acute (18) Fall Status: Acute (19) Fall Status: Acute (20) Fall Status: Acute (21) Fall Status: Acute (22) Fall from bed Status: Acute (23) Fever of unknown origin Status: Acute (24) Head injury, closed Status: Acute (25) Hemorrhoids Status: Acute (26) Laceration of scalp Status: Acute (27) Leukocytosis Status: Acute (28) Medication reaction Status: Acute (29) Muscle tremor Status: Acute (30) Pneumonia Status: Acute (31) Seizure Status: Acute (32) Seizure Status: Acute (33) Weakness Status: Acute (34) Weakness Status: Acute Family History Noncontributory Social History Smoking Status: Former smoker Smokeless Tobacco Use: No Alcohol Use: none Drug Use: none Marital Status: single Housing Status: assisted living Occupation Status: disabled Allergies Coded Allergies: Sulfamethoxazole w/Trimethoprim (Verified Allergy, Unknown, dizziness and increase in tremor, 02/01/17) Grapefruit (Verified Adverse Reaction, Unknown, INTERACTS WITH OTHER MEDS , 02/01/17) Ibuprofen (Verified Adverse Reaction, Unknown, avoids secondary to reactions with other medications, 01/23/17) Levetiracetam (Verified Adverse Reaction, Unknown, AGITATION, 02/01/17) Current Inpatient Medications Current Inpatient Medications Medications (Trade) Dose Ordered Sig/Hugh Route Start Time Stop Time Status Last Admin Dose Admin Acetaminophen (Tylenol Tab) 650 mg Q4H PRN PO 02/19/17 00:45 03/21/17 00:44 Al Hydrox/Mg Hydrox/Simethicone (Maalox Max Susp) 15 ml Q4H PRN PO 02/19/17 00:45 03/21/17 00:44 Magnesium Hydroxide (Milk Of Magnesia Susp) 30 ml Q6H PRN PO 02/19/17 00:45 03/21/17 00:44 Polyethylene (Miralax Powder Packet) 17 gm DAILY PRN PO 02/19/17 00:45 03/21/17 00:44 Zolpidem Tartrate (Ambien Tab) 5 mg HSZ PRN PO 02/19/17 00:45 03/21/17 00:44 Ondansetron HCl (Zofran Inj) 4 mg Q6H PRN IV 02/19/17 00:45 03/21/17 00:44 Heparin Sodium (Porcine) (Heparin Sq 5000 Unit/0.5ml) 5,000 unit Q12H SQ 02/19/17 00:45 03/21/17 00:44 UNV Vancomycin HCl 1000 mg/Sodium Chloride 270 ml @ 125 mls/hr Q12 IV 02/19/17 09:00 03/01/17 08:59 UNV Piperacillin Sod/ Tazobactam Sod 3.375 gm/Dextrose 115 ml @ 28.75 mls/ hr Q8H IV 02/19/17 08:00 03/01/17 07:59 Buspirone HCl (BusPAR TAB) 15 mg QAM PO 02/19/17 08:00 03/21/17 08:59 Buspirone HCl (BusPAR TAB) 30 mg HS PO 02/19/17 21:00 03/21/17 20:59 Docusate Sodium (coLACE CAP) 100 mg BID PO 02/19/17 08:00 03/21/17 08:59 Fluoxetine HCl (Prozac Cap) 20 mg DAILY PO 02/19/17 08:00 03/21/17 08:59 Gabapentin (Neurontin Cap) 100 mg TID PO 02/19/17 08:00 03/21/17 08:59 Pantoprazole Sodium (Protonix Tab) 40 mg DAILYBB PO 02/19/17 06:30 03/21/17 06:59 02/19/17 06:33 40 MG Propranolol HCl (Inderal LA Cap) 80 mg BID PO 02/19/17 08:00 03/21/17 08:59 Senna/Docusate Sodium (Senokot S Tab) 1 tab HS PO 02/19/17 21:00 03/21/17 20:59 Tramadol HCl (Ultram Tab) 50 mg Q4H PRN PO 02/19/17 01:00 03/21/17 00:59 Miscellaneous Information (Order Awaiting Action) 1 ea QS N/A 02/19/17 08:00 03/21/17 07:59 Lacosamide (Vimpat Tab) 200 mg BID PO 02/19/17 08:00 03/21/17 08:59 Miscellaneous Information (Order Awaiting Action) 1 ea QS N/A 02/19/17 03:00 03/21/17 02:59 Loperamide HCl (Imodium Cap) 4 mg DAILY PRN PO 02/19/17 01:00 03/21/17 00:59 Multivitamins/ Minerals (Multivitamin W/ Minerals Tab) 1 tab QAM PO 02/19/17 08:00 03/21/17 07:59 Miscellaneous Information (Order Awaiting Action) 1 ea QS N/A 02/19/17 03:00 03/21/17 02:59 Miscellaneous (Iv Fluids Completed) 1 ea PRN PRN N/A 02/19/17 01:00 02/19/18 00:59 Vancomycin HCl (Consult) 1 ea UD PRN N/A 02/19/17 03:00 03/21/17 02:59 Piperacillin Sod/ Tazobactam Sod (Consult) 1 ea UD PRN N/A 02/19/17 03:00 03/21/17 02:59 Review of Systems Constitutional: Significant for fever Neurological: As per history of present illness Physical Exam Vital Signs (Past 24 Hrs): Date Time Temp Pulse Resp B/P (MAP) Pulse Ox O2 Delivery O2 Flow Rate FiO2 02/19/17 02:29 36.7 65 18 110/63 94 Room Air 02/19/17 01:25 37.0 62 20 108/62 96 02/19/17 00:42 67 02/19/17 00:28 84 20 110/60 92 Room Air 02/18/17 23:29 37.1 72 20 110/60 92 Room Air 02/18/17 21:52 86 20 110/79 92 Room Air 02/18/17 20:23 87 20 101/75 93 Room Air 02/18/17 20:14 93 Room Air 02/18/17 19:50 89 02/18/17 19:28 37.2 90 20 101/75 94 Room Air The patient is a well-developed, well-nourished, middle-aged to elderly male. He is lying comfortably in bed and does not appear to be in significant distress. He is lethargic but oriented to person and hospital. Not oriented to date. Recent and remote memory seemed to be impaired although difficult to assess at this time. Attention and concentration are impaired. Patient does give simple one-word answers to questions. Assessment speech is otherwise limited. Patient exhibits a normal vocabulary although fund of knowledge is difficult to assess. Pupils equal round reactive to light and accommodation. Eye movements intact. No nystagmus. There is no facial droop. Palate elevates to midline. Tongue protrudes to midline. Sensation intact for the limbs. Deep tendon reflexes are intact and symmetrical. Carotid pulses normal bilaterally, no bruits to auscultation. Muscle strength normal for the arms and legs. Muscle tone normal for the arms and legs. No atrophy. Patient exhibits intermittent tremor of both arms which is resting and action components. Laboratory Results Past 24 Hours: 02/18/17 19:08 Red Blood Count 4.38, Mean Corpuscular Volume 95.4, Mean Corpuscular Hemoglobin 32.2, Mean Corpuscular Hemoglobin Concent 33.7, Mean Platelet Volume 9.7, Neutrophils (%) (Auto) 83.4, Lymphocytes (%) (Auto) 7.9, Monocytes (%) (Auto) 7.2, Eosinophils (%) (Auto) 1.1, Basophils (%) (Auto) 0.1, Neutrophils # (Auto) 11.62, Lymphocytes # (Auto) 1.10, Monocytes # (Auto) 1.01, Eosinophils # (Auto) 0.16, Basophils # (Auto) 0.02 02/18/17 19:08 Test 02/18/17 19:08 02/18/17 20:00 02/18/17 20:14 02/18/17 20:15 White Blood Count 13.95 K/uL (4.8-10.8) Red Blood Count 4.38 M/uL (4.7-6.1) Hemoglobin 14.1 g/dL (14.0-18.0) Hematocrit 41.8 % (42-52) Mean Corpuscular Volume 95.4 fL (80-100) Mean Corpuscular Hemoglobin 32.2 pg (25-34) Mean Corpuscular Hemoglobin Concent 33.7 g/dl (32-36) Platelet Count 176 K/uL (130-400) Mean Platelet Volume 9.7 fL (7.4-10.4) Neutrophils (%) (Auto) 83.4 % Lymphocytes (%) (Auto) 7.9 % Monocytes (%) (Auto) 7.2 % Eosinophils (%) (Auto) 1.1 % Basophils (%) (Auto) 0.1 % Neutrophils # (Auto) 11.62 K/uL (1.4-6.5) Lymphocytes # (Auto) 1.10 K/uL (1.2-3.4) Monocytes # (Auto) 1.01 K/uL (0.11-0.59) Eosinophils # (Auto) 0.16 K/uL (0-0.5) Basophils # (Auto) 0.02 K/uL (0-0.2) RDW Standard Deviation 47.0 fL (36.4-46.3) RDW Coefficient of Variation 13.6 % (11.5-14.5) Immature Granulocyte % (Auto) 0.3 % Immature Granulocyte # (Auto) 0.04 K/uL (0.00-0.02) Anion Gap 6.0 mmol/L (3-11) Est Creatinine Clear Calc Drug Dose 98.6 ml/min Estimated GFR () 102.3 Estimated GFR (Non- 88.3 BUN/Creatinine Ratio 16.8 (10-20) Calcium Level 8.8 mg/dl (8.5-10.1) Total Bilirubin 0.4 mg/dl (0.2-1) Direct Bilirubin < 0.1 mg/dl (0-0.2) Aspartate Amino Transf (AST/SGOT) 15 U/L (15-37) Alanine Aminotransferase (ALT/SGPT) 29 U/L (12-78) Alkaline Phosphatase 119 U/L (45-117) Total Creatine Kinase 48 U/L (39-308) Total Protein 7.2 gm/dl (6.4-8.2) Albumin 3.6 gm/dl (3.4-5.0) Lipase 321 U/L (73-393) Urine Color YELLOW Urine Appearance CLEAR (CLEAR) Urine pH >= 9.0 (4.5-7.5) Urine Specific [place] 1.021 (1.000-1.030) Urine Protein NEG (NEG) Urine Glucose (UA) NEG (NEG) Urine Ketones NEG (NEG) Urine Occult Blood 2+ (NEG) Urine Nitrite NEG (NEG) Urine Bilirubin NEG (NEG) Urine Urobilinogen NEG (NEG) Urine Leukocyte Esterase TRACE (NEG) Urine WBC (Auto) 1-5 /hpf (0-5) Urine RBC (Auto) >30 /hpf (0-4) Urine Hyaline Casts (Auto) 1-5 /lpf (0-5) Urine Epithelial Cells (Auto) 0-5 /lpf (0-5) Urine Bacteria (Auto) NEG (NEG) Pro-B-Type Natriuretic Peptide 87 pg/ml (0-900) Lactic Acid Level 1.3 mmol/L (0.4-2.0) Test 02/18/17 22:04 02/19/17 06:48 Influenza Type A Antigen Neg for Influ A (NEG) Influenza Type B Antigen Neg for Influ B (NEG) Prothrombin Time 10.6 SECONDS (9.0-12.0) Prothromb Time International Ratio 1.0 (0.9-1.1) Activated Partial Thromboplast Time 43.1 SECONDS (21.0-31.0) Partial Thromboplastin Ratio 1.7 Impression This is a 51-year-old male who is well-known to the neurology service. He has a history of refractory epilepsy, severe ataxic tremor, and intellectual disabilities. He has been admitted to the hospital with perhaps some alteration in his neurological status characterized by an increase in his ataxic tremor with some associated alteration in level of awareness potentially consistent with breakthrough seizures occurring in the context of a high fever presumably related to proctitis. Plan I would obtain a routine EEG. Increase patient's dosage of Lamictal 400 mg twice daily Please continue this patient's other outpatient anticonvulsants. Thank you for the consult <Electronically signed by Willian Rashid MD> Signed: 02/19/17815 Signed: The status of this report is Signed * If report status is Draft, the document has not been finalized by the responsible provider. MNE: HEMONC <AttendingPhy>Norris Latif M.D.</AttendingPhy><EDPhy>Tigre Hurtado M.D.</EDPhy> <FamilyPhy></FamilyPhy> <PrimaryPhy>No Doctor, Assigned</ PrimaryPhy><UnitNumber>[id number]</UnitNumber><VisitNumber>[id number]</ VisitNumber><PatientName>ARMANI DOTY</PatientName><DateOfBirth>1965</ DateOfBirth><Age>51</Age><Location>[facility]</Location><ServiceDate>02/18/17</ ServiceDate><CC>Willian Rashid M.D. No Doctor, Assigned</CC><MNE>ACUTECONS</MNE> Patient: ARMANI DOTY Admit Date: 02/18/[address] [facility] Rec: [id number] Acct ID: [id number] [~ rep ct labl] Page 2 of 2 p: [~ rep prt dt last] [~ rep prt tm last] CONSULTATION REPORT [~ rep ct labl] Page 1 of 1 p: [~ rep prt dt last] [~ rep prt tm last] CONSULTATION REPORT ID Consult DATE OF CONSULTATION: 02/19/2017 51-year-old gentleman worsening seizures. He does have a history of seizure for which he follows with neurology. He was evaluated by neurology during this admission. He reportedly had a temperature of 102 degrees at home. He was placed empirically on vancomycin and Zosyn. He appears to be tolerating it well. His lactic acid is normal. His white blood cell count was mildly elevated at 13.9. His urinalysis is negative. Flu swab was negative. Blood cultures were ordered and pending. A CAT scan of the abdomen and pelvis was negative for infectious etiology. Chest x-ray showed atelectasis. Infectious diseases was consulted for leukocytosis. Medical history significant for change in mental status, chronic seizure disorder, hydronephrosis with ureteral stones and mild mental retardation, Tegretol toxicity and resting tremor. FAMILY HISTORY: Noncontributory. SOCIAL HISTORY: Significant for resident at [facility]. ALLERGIES: BACTRIM, IBUPROFEN, KEPPRA. CURRENT MEDICATIONS: BuSpar, Senokot, vancomycin, subQ heparin, Zosyn, Colace, Prozac, Neurontin, propranolol, Vimpat, multivitamins, Protonix, Ultram, Imodium, Tylenol, Maalox, milk of magnesia, MiraLax and Zofran. PHYSICAL EXAMINATION: VITAL SIGNS: He is afebrile, pulse 66, respiratory rate 18, blood pressure 110/63. Oxygen saturation is 94-96% on room air. GENERAL: He is responsive but lethargic. He does not answer questions. HEENT: Mucous membranes are moist. HEART: Regular. I do not auscultate a murmur. LUNGS: Clear with poor inspiratory effort. ABDOMEN: Soft and nondistended. There is no edema. SKIN: Without rash. LABORATORY STUDIES: CBC yesterday reveals a white blood cell count of 13.9, hemoglobin 14.1, platelets 176. Chemistry panel reveals sodium of 138, potassium 3.9, chloride 103, bicarbonate 29, BUN 17, creatinine 0.9, glucose is 93. Lactic acid is 1.3. LFTs are within normal limits. Lipase normal. Urinalysis was negative. Flu swab was negative. Blood cultures are pending. IMAGING: As above. Leukocytosis likely secondary to underlying seizure disorder. He can remain on broad spectrum antibiotics but if cultures are negative within the next 24-48 hours he should be followed off of antibiotics. I suspect his leukocytosis to resolve with treatment of his underlying seizure disorder. [id number] <Electronically signed by Yeni Elliott D.O.> S: 02/20/17 1342 MAS Yeni Elliott D.O. The status of this report is Signed. Draft = Not yet reviewed or approved by Medical Physician. Signed = Reviewed and approved by Medical Physician. Medication Reconciliation New Medications: [Lamotrigine Er] () 100 MG TAB 300 MG PO BID [Lamotrigine] () 25 MG TAB 50 MG PO BID Continued Medications: Acetaminophen (Tylenol) 500 Mg Tab 500 MG PO Q4H PRN for Pain, TAB Alum & Mag Hydrox-Simethicone (Antacid & [place]ig[place] 200-200-20 mg/5Ml) 1 Henrietta Henrietta 30 ML PO Q6 PRN for Buspirone Hcl (Buspar) 15 Mg Tab 15 MG PO QAM Buspirone Hcl (Buspar) 15 Mg Tab 30 MG PO HS Docusate Sodium (Colace) 100 Mg Cap 100 MG PO BID Felbamate (Felbamate) 600 Mg Tab 600 MG PO BID Fluoxetine Hcl (Prozac) 20 Mg Cap 20 MG PO DAILY Gabapentin (Gabapentin) 100 Mg Cap 100 MG PO TID for 30 Days, #90 CAP Lacosamide (Vimpat) 200 Mg Tab 200 MG PO BID Loperamide Hcl (Imodium A-D) 2 Mg Tab 4 MG PO UD PRN for Diarrhea Magnesium Hydroxide (Milk Of Magnesia) 30 Ml Susp 30 ML PO UD PRN for Constipation Multiple Vitamins W/ Minerals (Preservision Areds 2) 1 Cap Cap 2 CAP PO QAM Neomycin/Polymyx/Bacitr (Neosporin) Oint 1 APPL TOP BID PRN for CUTS,SCRAPES,ABRASIONS Pantoprazole (Protonix) 40 Mg Tab 40 MG PO DAILYBB, #30 TAB Propranolol Hcl (Propranolol Hcl Er) 80 Mg Cap 80 MG PO BID, CAP 3 Refills Sennosides-Docusate Sodium (Senokot S) 1 Tab Tab 1 TAB PO HS Tramadol (Ultram) 50 Mg Tab 50 MG PO Q4H PRN for Pain, TAB [Clobazam] () 5 MG PO Q12 Discontinued Medications: Lamotrigine (Lamotrigine Er) 100 Mg Tab 300 MG PO Q12 Discharge Exam Review of Systems: Constitutional: No fever, No chills Respiratory: No cough, No sputum Cardiovascular: No chest pain, No orthopnea Abdomen: No pain, No nausea Neurologic: + problem reported (tremors) Integumentary: No rash, No itch Physical Exam: General Appearance: WD/WN, no apparent distress Neck: supple, no adenopathy Respiratory/Chest: chest non-tender, lungs clear, normal breath sounds Cardiovascular: regular rate, rhythm, no edema Abdomen / GI: normal bowel sounds, non tender, soft Neurologic/Psychiatric: + pertinent finding (tremors) Skin: normal color, warm/dry Lymphatic: no adenopathy Hospital Course 51M with a PMHx of seizure disorder s/p TBI p/w increasing seizure activity and a fever [employer]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 CT concerning for Proctitis. Patient started on Empiric Vanc and Zosyn - . Neurology consulted regarding anticonvulsant med dosing. Follow up blood cultures, temps and look for clinical improvement on current Abx regimen. Possible Seizure activity Hx known traumatic brain injury. - Recently admitted and d/c'd from this facility on 02/06: Initial plan was to increase Lamotrigine from 300mg po bid to 400 mg po bid. However, patient did not tolerate new dose. This was later decreased to 350 mg PO BID. Patient tolerated this new dose. Unsure of the benefit of gabapentin at 100 mg po TID Will defer this to PCP. Will continue: Gabapentin 100mg TID Cobazam 5 mg Q12h Felbamate 600mg PO BID Vimpat 200 mg BID - EEG reviewed and is negative for seizure activity Metabolic encephalitis possibly 2/2 to Proctitis - UA reviewed and essentially negative, Ucx not completed at time of admission and pt placed on vanc and zosyn. Pt without rectal pain, lower abdominal pain, diarrhea- So unlikely that this is a true proctitis at this time - Initially had fever and was treated with empiric antibiotics x 48 hrs - afebrile overnight, tmax of 100.4 - lactulose fixed constipation. - Blood cultures NGTD - Appreciate ID recs -Patient had no leukocytosis after antibiotics were held. Hematuria- resolved - RBCs in urine but CT didn't show any evidence of stones. - Per EMR pt has a history of renal stones. - questionable proctitis at time of admission HTN - Cont propranolol 80 mg BID Depression/Anxiety - Cont Prozac 20 mg daily and buspar 15 mg QAm and 30 mg QHS GERD - Cont pantoprazole CODE STATUS: Full DVT ppx: heparin subq Dispo: From [facility], Total Time Spent: Greater than 30 minutes This includes examination of the patient, discharge planning, medication reconciliation, and communication with other providers. Discharge Instructions Please refer to the electronic Patient Visit Report (Discharge Instructions) for additional information. Follow-Up As per discharge instructions
[2017-08-27] MEDS ORDERED: CEPH500C PO ×2 (16:13→16:25)
[2017-09-13] MEDS ORDERED: MOML PO (08:02)
[2017-09-13] MEDS ORDERED: CARB6.5S27 OT (08:59)
[2017-09-13] MEDS ORDERED: PRLSR20 PO (08:59)
[2017-09-13] MEDS ORDERED: DEXT30LI4 PO (08:59)
[2017-09-13] MEDS ORDERED: NEOMOIN3 TOP (09:22)
[2017-09-13] MEDS ORDERED: [UNRECOGNIZED DRUG - CODE] PO (11:38)
[2017-09-13] MEDS ORDERED: MULT60CA PO (11:38)
[2017-09-13] MEDS ORDERED: LACO200T PO (13:03)
[2017-09-13] MEDS ORDERED: LACO50TA PO (14:53)
[2017-09-13] MEDS ORDERED: PROP80TA2 PO (14:53)
[2017-09-13] MEDS ORDERED: ACET-1311 PO (14:53)
[2017-09-13] MEDS ORDERED: CLOB1SUS PO (14:53)
[2017-09-13] MEDS ORDERED: BSP15 PO (15:38)
[2017-09-13] MEDS ORDERED: BUSP15TA70 PO ×2 (15:38→17:07)
[2017-09-13] MEDS ORDERED: GABA-112 PO (16:20)
[2017-09-13] MEDS ORDERED: LAMO1TAB79 PO (16:26)
[2017-09-13] MEDS ORDERED: LAMO50TA PO (16:30)
[2017-09-13] MEDS ORDERED: FLUO20CA37 PO (17:14)
[2017-09-13] MEDS ORDERED: LOPE-5 PO (17:19)
[2017-09-13] MEDS ORDERED: ALUM1SUS PO (20:24)
[2017-09-22] MEDS ORDERED: SENN-65 PO (12:58)
[2017-10-08] MEDS ORDERED: FLM4 PO (10:55)
[2017-10-08] MEDS ORDERED: LMC100 PO (10:55)
[2017-10-08] MEDS ORDERED: PRS5 PO (10:55)
== END 2017-02-22 15:15 ==
LOC: EDBD 19:20 → C.EDC 19:23 → C.MS4W 02-19 00:47 → ENRESERV 02-19 01:10
PROVIDERS: ADMIT Family Medicine; ATTEND Internal Medicine Sports Medicine
DX: G93.41 Metabolic encephalopathy (principal); I10 Essential (primary) hypertension; G40.901 Epilepsy, unspecified, not intractable, with status epilepticus; K21.9 Gastro-esophageal reflux disease without esophagitis; F70 Mild intellectual disabilities; R33.9 Retention of urine, unspecified; R26.9 Unspecified abnormalities of gait and mobility; F32.9 Major depressive disorder, single episode, unspecified; F41.9 Anxiety disorder, unspecified; Z79.899 Other long term (current) drug therapy; Z87.891 Personal history of nicotine dependence; Z91.81 History of falling; Z87.442 Personal history of urinary calculi

== ENCOUNTER → 2017-03-28 | Outpatient (CLI) | payer OTHER ==
[~2017-03-28] MED LIST changes: +ACET-1256 PO; -ACET-1311 PO; -ALUM-30 PO; +ALUM1SUS PO; -CARB1SOL8 OT; -CLOB1SUS PO; +CLOBAZAM PO; +FLUO20CA37 PO; -HYDR25SU20 PR; +LACO200T PO; +LOPE-5 PO; +Lamotrigine PO; +MOML PO; +MULT60CA PO; +NEOMOIN3 TOP; +PANT40TA PO; -PRLSR20 PO; +TRAM-10 PO; +[UNRECOGNIZED DRUG - CODE] PO
== END | disposition home or self-care (01) ==
LOC: C.LAB1850 15:18
PROVIDERS: ATTEND Physician Assistant
DX: G40.909 Epilepsy, unspecified, not intractable, without status epilepticus (principal); Z51.81 Encounter for therapeutic drug level monitoring; N20.0 Calculus of kidney; Z79.899 Other long term (current) drug therapy

== ENCOUNTER → 2017-04-10 | Outpatient (CLI) | payer OTHER ==
--- NOTE | 2017-04-10 09:08 | DIAGNOSTIC IMAGING REPORT ---
KUB CLINICAL HISTORY: 51 years-old Male presenting with N20.0 [id number]. TECHNIQUE: Single supine view of the abdomen was obtained. COMPARISON: CT from 02/18/2017 and plain radiograph from 02/01/2017. FINDINGS: Cholecystectomy clips noted. Mild stool burden primarily in the left colon and rectum. Nonobstructive bowel gas pattern. No gross pneumoperitoneum. Allowing for bowel gas and stool, no calcifications to suggest nephrolithiasis. Minimal S-shaped scoliotic curvature of the thoracolumbar spine. Lung bases clear. IMPRESSION: 1. No radiographic evidence of nephrolithiasis allowing for bowel gas and stool. Electronically signed by: John Chavez M.D. 04/10/2017 9:07 AM Dictated Date/Time: 04/10/2017 9:05 AM
== END | disposition home or self-care (01) ==
LOC: C.RAD 08:45
PROVIDERS: ATTEND Urology
DX: N20.0 Calculus of kidney (principal)

== ENCOUNTER 2017-04-23 14:16 | Emergency (ER) | payer OTHER ==
[~2017-04-23] VITALS: Ht 170.2 cm; Wt 83.7 kg
[2017-04-23 14:22] VITALS: TEMP 36.9; Ht 170.2 cm; Wt 83.7 kg
[2017-04-23] MEDS ORDERED: KETOROLAC TROMETHAMINE 30 MG/ML VIAL IV STA (14:57)
[2017-04-23] MEDS ORDERED: SODIUM CHLORIDE 0.9% 1000ML 1,000 ML IV STA (14:57)
[2017-04-23] MEDS ORDERED: ALBUT/IPRATROP 3MG/0.5MG NEB 3 ML VIAL INH ONE (15:00)
[2017-04-23 15:33] VITALS: O2SAT 96
[2017-04-23 15:35] VITALS: PULSE 56; O2SAT 92
[2017-04-23 15:37] LABS: BASO % 0.3 %; BASO ABS # 0.02 K/uL (0-0.2); EOS % 0.4 %; EOS ABS # 0.03 K/uL (0-0.5); HEMATOCRIT 42.4 % (42-52); HEMOGLOBIN 14.6 g/dL (14.0-18.0); IG# 0.03 K/uL (0.00-0.02); LYMPH % 18.6 %; LYMPH ABS # 1.33 K/uL (1.2-3.4); MEAN CELL VOLUME 92.2 fL (80-100); MEAN CORPUSCULAR HEMOGLOBIN 31.7 pg (25-34); MEAN CORPUSCULAR HGB CONC 34.4 g/dl (32-36); MEAN PLATELET VOLUME 8.8 fL (7.4-10.4); MONO % 11.7 %; MONO ABS # 0.84 K/uL (0.11-0.59); NEUT % 68.6 %; PLATELET COUNT 155 K/uL (130-400); RED CELL DISTRIBUTION WIDTH CV 13.3 % (11.5-14.5); WHITE BLOOD COUNT 7.15 K/uL (4.8-10.8)
--- NOTE | 2017-04-23 15:38 | DIAGNOSTIC IMAGING REPORT ---
SINGLE VIEW CHEST CLINICAL HISTORY: Atypical chest pain. FINDINGS: An AP, portable, upright chest radiograph is compared to study dated 02/18/2017. The examination is degraded by portable technique and patient rotation. The cardiomediastinal silhouette is unremarkable. There are foci of bibasilar atelectasis. No airspace consolidation is seen typical for pneumonia and there is no large pleural effusion. No pneumothorax is seen. The bony thorax is grossly intact. There is mild spinal scoliosis. Cholecystectomy clips are seen in the right upper quadrant. IMPRESSION: Bibasilar atelectasis with no acute cardiopulmonary abnormality. Electronically signed by: José Luis Major M.D. 04/23/2017 3:37 PM Dictated Date/Time: 04/23/2017 3:36 PM
[2017-04-23 15:59] LABS: ALBUMIN 3.6 gm/dl (3.4-5.0); CREATININE 0.93 mg/dl (0.60-1.40); POTASSIUM 3.6 mmol/L (3.5-5.1)
[2017-04-23 16:02] LABS: TOTAL PROTEIN 7.1 gm/dl (6.4-8.2)
[2017-04-23 16:12] LABS: INFLUENZA B ANTIGEN Neg for Influ B (NEG)
[2017-04-23] MEDS ORDERED: GABA-112 PO (16:20)
[2017-04-23] MEDS ORDERED: LAMO1TAB79 PO (16:26)
[2017-04-23] MEDS ORDERED: LAMO50TA PO (16:30)
--- NOTE | 2017-04-23 16:48 | EMERGENCY ROOM VISIT NOTE ---
History Report prepared by [place]: Annmarie Quinn Under the Supervision of: Dr. Tigre Hurtado M.D. First contact with patient: 14:52 Chief Complaint: OTHER COMPLAINT History of Present Illness The patient is a 51 year old male who presents to the Emergency Room with complaints of persistent coughing and wheezing that began around 0100 today. The patient's caregiver states that the patient has been surrounded by people who have been diagnosed with the flu recently in his [facility]ci. She denies the patient having any fevers and states he has not urinated since yesterday. The caregiver reports that his behavior has not been at baseline, noting he has been rambling and confused. She reports that he has been sleeping more than normal, noting that he slept about 18 hours two days ago and 20 hours one day ago. He was evaluated in the Emergency Department 2 weeks ago because he was not feeling well, noting he was negative for the flu. The patient does not take any blood thinners. Source of History: patient Onset: 0100 Position: other (respiratory ) Quality: other (coughing and wheezing) Timing: other (persistent) Associated Symptoms: No fevers Review of Systems See HPI for pertinent positives and negatives. A total of ten systems were reviewed and were otherwise negative. Past Medical & Surgical Medical Problems: (1) Altered mental status (2) Ambulatory dysfunction (3) Encephalopathy (4) Epilepsy (5) Hydronephrosis with ureteral calculus (6) Inguinal hernia (7) Kidney stone (8) Mild mental retardation (9) Rectal bleed (10) Seizure disorder (11) Seizures (12) Status epilepticus (13) TBI (traumatic brain injury) (14) Tegretol toxicity (15) Tremor (16) Urinary retention Family History Heart disease Hypertension Kidney disease Social History Smoking Status: Never Smoker Alcohol Use: none Drug Use: none Marital Status: single Housing Status: assisted living Occupation Status: disabled Current/Historical Medications Scheduled Buspirone Hcl (Buspar), 15 MG PO QAM Buspirone Hcl (Buspar), 30 MG PO HS Docusate Sodium (Colace), 100 MG PO BID Felbamate (Felbamate), 600 MG PO BID Fluoxetine Hcl (Prozac), 20 MG PO DAILY Gabapentin (Neurontin), 100 MG PO TID Lacosamide (Vimpat), 200 MG PO BID Lamotrigine (Lamotrigine Er), 300 MG PO BID Lamotrigine (Lamictal Xr), 50 MG PO BID Multiple Vitamins W/ Minerals (Preservision Areds 2), 2 CAP PO QAM Oseltamivir Phosphate (Tamiflu), 75 MG PO BID Pantoprazole (Protonix), 40 MG PO DAILYBB Propranolol Hcl (Propranolol Hcl Er), 80 MG PO BID Sennosides-Docusate Sodium (Senokot S), 1 TAB PO HS [Clobazam], 5 MG PO Q12 Scheduled PRN Acetaminophen (Tylenol), 500 MG PO Q4H PRN for Pain Alum & Mag Hydrox-Simethicone (Antacid & [place] 200-200-20 mg/5Ml), 30 ML PO Q6 PRN for Loperamide Hcl (Imodium A-D), 4 MG PO UD PRN for Diarrhea Magnesium Hydroxide (Milk Of Magnesia), 30 ML PO UD PRN for Constipation Neomycin/Polymyx/Bacitr (Neosporin), 1 APPL TOP BID PRN for CUTS,SCRAPES, ABRASIONS Tramadol (Ultram), 50 MG PO Q4H PRN for Pain Allergies Coded Allergies: Sulfamethoxazole w/Trimethoprim (Verified Allergy, Unknown, dizziness and increase in tremor, 02/01/17) Grapefruit (Verified Adverse Reaction, Unknown, INTERACTS WITH OTHER MEDS , 02/01/17) Ibuprofen (Verified Adverse Reaction, Unknown, avoids secondary to reactions with other medications, 01/23/17) Levetiracetam (Verified Adverse Reaction, Unknown, AGITATION, 02/01/17) Physical Exam Vital Signs Date Time Temp Pulse Resp B/P (MAP) Pulse Ox O2 Delivery O2 Flow Rate FiO2 04/23/17 17:51 56 22 102/66 90 04/23/17 17:21 57 22 88 04/23/17 17:16 57 17 90 04/23/17 17:01 111/71 04/23/17 16:46 56 19 99 04/23/17 16:16 56 18 98 04/23/17 16:01 106/67 04/23/17 15:46 54 25 97 04/23/17 15:35 56 20 92 Room Air 04/23/17 15:33 96 Room Air 04/23/17 15:16 55 26 91 04/23/17 15:01 112/69 2/19/18 14:46 56 22 04/23/17 14:28 56 04/23/17 14:22 132/78 04/23/17 14:22 36.9 62 20 132/78 96 Room Air Physical Exam GENERAL: Awake, alert, fatigued-appearing, in no distress HENT: Dry mucous membranes. Normocephalic, atraumatic. Oropharynx unremarkable. EYES: Normal conjunctiva. Sclera non-icteric. NECK: Supple. No nuchal rigidity. FROM. No JVD. RESPIRATORY: Course upper airway congestion, intermittent wheezes, otherwise clear lungs. CARDIAC: Regular rate, normal rhythm. Extremities warm and well perfused. Pulses equal. ABDOMEN: Soft, non-distended. No tenderness to palpation. No rebound or guarding. No masses. RECTAL: Deferred. MUSCULOSKELETAL: Chest examination reveals no tenderness. The back is symmetrical on inspection without obvious abnormality. There is no CVA tenderness to palpation. No joint edema. LOWER EXTREMITIES: Calves are equal size bilaterally and non-tender. No edema. No discoloration. NEURO: Normal sensorium. No sensory or motor deficits noted. At baseline with chronic ataxia. SKIN: No rash or jaundice noted. Medical Decision & Procedures ER Provider Diagnostic Interpretation: Radiology results as stated below per my review and radiologist interpretation: SINGLE VIEW CHEST CLINICAL HISTORY: Atypical chest pain. FINDINGS: An AP, portable, upright chest radiograph is compared to study dated 02/18/2017. The examination is degraded by portable technique and patient rotation. The cardiomediastinal silhouette is unremarkable. There are foci of bibasilar atelectasis. No airspace consolidation is seen typical for pneumonia and there is no large pleural effusion. No pneumothorax is seen. The bony thorax is grossly intact. There is mild spinal scoliosis. Cholecystectomy clips are seen in the right upper quadrant. IMPRESSION: Bibasilar atelectasis with no acute cardiopulmonary abnormality. Electronically signed by: José Luis Major M.D. 04/23/2017 3:37 PM Dictated Date/Time: 04/23/2017 3:36 PM Laboratory Results 04/23/17 15:20 Red Blood Count 4.60, Mean Corpuscular Volume 92.2, Mean Corpuscular Hemoglobin 31.7, Mean Corpuscular Hemoglobin Concent 34.4, Mean Platelet Volume 8.8, Neutrophils (%) (Auto) 68.6, Lymphocytes (%) (Auto) 18.6, Monocytes (%) (Auto) 11.7, Eosinophils (%) (Auto) 0.4, Basophils (%) (Auto) 0.3, Neutrophils # (Auto ) 4.90, Lymphocytes # (Auto) 1.33, Monocytes # (Auto) 0.84, Eosinophils # (Auto ) 0.03, Basophils # (Auto) 0.02 04/23/17 15:20 Test 04/23/17 15:15 04/23/17 15:20 04/23/17 15:39 Urine Color DK YELLOW Urine Appearance CLEAR (CLEAR) Urine pH 6.0 (4.5-7.5) Urine Specific [place] 1.031 (1.000-1.030) Urine Protein 1+ (NEG) Urine Glucose (UA) NEG (NEG) Urine Ketones TRACE (NEG) Urine Occult Blood NEG (NEG) Urine Nitrite NEG (NEG) Urine Bilirubin NEG (NEG) Urine Urobilinogen POS (NEG) Urine Leukocyte Esterase TRACE (NEG) Urine WBC (Auto) 1-5 /hpf (0-5) Urine RBC (Auto) 0-4 /hpf (0-4) Urine Hyaline Casts (Auto) 5-10 /lpf (0-5) Urine Epithelial Cells (Auto) 20-30 /lpf (0-5) Urine Bacteria (Auto) NEG (NEG) White Blood Count 7.15 K/uL (4.8-10.8) Red Blood Count 4.60 M/uL (4.7-6.1) Hemoglobin 14.6 g/dL (14.0-18.0) Hematocrit 42.4 % (42-52) Mean Corpuscular Volume 92.2 fL (80-100) Mean Corpuscular Hemoglobin 31.7 pg (25-34) Mean Corpuscular Hemoglobin Concent 34.4 g/dl (32-36) Platelet Count 155 K/uL (130-400) Mean Platelet Volume 8.8 fL (7.4-10.4) Neutrophils (%) (Auto) 68.6 % Lymphocytes (%) (Auto) 18.6 % Monocytes (%) (Auto) 11.7 % Eosinophils (%) (Auto) 0.4 % Basophils (%) (Auto) 0.3 % Neutrophils # (Auto) 4.90 K/uL (1.4-6.5) Lymphocytes # (Auto) 1.33 K/uL (1.2-3.4) Monocytes # (Auto) 0.84 K/uL (0.11-0.59) Eosinophils # (Auto) 0.03 K/uL (0-0.5) Basophils # (Auto) 0.02 K/uL (0-0.2) RDW Standard Deviation 45.0 fL (36.4-46.3) RDW Coefficient of Variation 13.3 % (11.5-14.5) Immature Granulocyte % (Auto) 0.4 % Immature Granulocyte # (Auto) 0.03 K/uL (0.00-0.02) Anion Gap 11.0 mmol/L (3-11) Est Creatinine Clear Calc Drug Dose 96.1 ml/min Estimated GFR () 109.0 Estimated GFR (Non- 94.1 BUN/Creatinine Ratio 14.6 (10-20) Calcium Level 9.0 mg/dl (8.5-10.1) Total Bilirubin 0.5 mg/dl (0.2-1) Direct Bilirubin 0.2 mg/dl (0-0.2) Aspartate Amino Transf (AST/SGOT) 28 U/L (15-37) Alanine Aminotransferase (ALT/SGPT) 20 U/L (12-78) Alkaline Phosphatase 143 U/L (45-117) Total Protein 7.1 gm/dl (6.4-8.2) Albumin 3.6 gm/dl (3.4-5.0) Lipase 243 U/L (73-393) Influenza Type A Antigen Neg for Influ A (NEG) Influenza Type B Antigen Neg for Influ B (NEG) Laboratory results reviewed by me Medications Administered Medications (Trade) Dose Ordered Sig/Hugh Route Start Time Stop Time Status Last Admin Dose Admin Sodium Chloride 1,000 ml @ 999 mls/hr Q1H1M STAT IV 04/23/17 14:57 04/23/17 15:57 DC 04/23/17 15:52 999 MLS/HR Albuterol/ Ipratropium (Duoneb) 12 ml ONE ONCE INH 04/23/17 15:00 04/23/17 15:01 DC 04/23/17 15:34 12 ML Oseltamivir Phosphate (Tamiflu Cap) 75 mg NOW STAT PO 04/23/17 16:54 04/23/17 16:56 DC 04/23/17 17:46 75 MG Albuterol (Ventolin Hfa Inhaler) 2 puffs NOW STAT INH 04/23/17 16:54 04/23/17 16:56 DC 04/23/17 17:46 2 PUFFS Sodium Chloride ([place] Nasal [place]) 2 sprays NOW ONCE NA 04/23/17 17:45 04/23/17 17:46 DC 04/23/17 17:46 2 SPRAYS ECG Per My Interpretation Indication: other (confusion) Rate (beats per minute): 54 Rhythm: sinus bradycardia Findings: no acute ischemic change, other (normal axis) Change: no significant change (02/18/17) ED Course 1454: The patient was evaluated in room B11. A complete history and physical exam was performed. 1648: I reevaluated the patient, who was resting. 1805: I reevaluated the patient. Discussed results and discharge instructions with his caregiver, she verbalized understanding and agreement. The patient is ready for discharge. Medical Decision I reviewed the patient's past medical history, medications, and the nursing notes as described above. Differential diagnosis: Etiologies such as infections, reactive airway disease, pneumonia, pneumothorax , COPD, CHF, cardiac ischemia, pulmonary embolism, musculoskeletal, gastrointestinal, as well as others were entertained. The patient is a 51 y/o gentleman with pmhx of developmental delay and sz d/o who presents [facility] the emergency department [facility] his [facility] for flu-like sx evolving since yesterday per HPI. On arrival the patient is in NAD, AFVSS. Labs unremarkable. CXR negative. Flu negative. However, given the prevalence of influenza in the community and the patient's comorbidities will tx empirically with Tamiflu. Patient feeling improved after IVF, nebs, acting at his baseline. Findings and plan for follow-up reviewed with patient and his caregiver. Patient and caregiver agreeable and d/c'd per discharge instructions. Medication Reconcilliation Current Medication List: was personally reviewed by me Blood Pressure Screening Patient's blood pressure: Normal blood pressure Blood pressure disposition: Did not require urgent referral Impression Primary Impression: Influenza-like symptoms Scribe Attestation The scribe's documentation has been prepared under my direction and personally reviewed by me in its entirety. I confirm that the note above accurately reflects all work, treatment, procedures, and medical decision making performed by me. Departure Information Dispostion Home / Self-Care Prescriptions Oseltamivir Phosphate (Tamiflu) 75 Mg Cap 75 MG PO BID, #10 CAP Prov: Tigre Hurtado M.D. 04/23/17 Referrals Jose Juan Brady M.D. (PCP) Forms HOME CARE DOCUMENTATION FORM, IMPORTANT VISIT INFORMATION Patient Instructions ED Flu, My [facility] Additional Instructions Please follow up with your primary care physician in the next 1-3 days for re- evaluation. You likely have a viral illness that may be the flu (although your screen was negative today) Otherwise, your exam, EKG, chest xray, and lab results did not show signs of an emergent condition at this time. Acetaminophen or Ibuprofen for pain and fevers as needed. Tamiflu as directed. Saline nasal spray and [id number] Mucinex to help thin and clear mucus. Use your albuterol inhaler 2 puffs every 4 hours for the next 48 hours and then as needed thereafter. Return to the emergency department for worsening symptoms as described in the accompanying instructions.
[2017-04-23] MEDS ORDERED: OSELTAMIVIR PHOSPHATE 75 MG CAP PO STA (16:54)
[2017-04-23] MEDS ORDERED: ALBUTEROL HFA 8 GM INHALER INH STA (16:54)
[2017-04-23] MEDS ORDERED: OSEL75CA23 PO (17:35)
[2017-04-23] MEDS ORDERED: SODIUM CHLORIDE 0.65% NA SOLN 45 ML (OCEAN) ONE (17:45)
[2017-04-23 17:51] VITALS: BP 102/66; PULSE 56; O2SAT 90
== END 2017-04-23 18:16 | disposition home or self-care (01) ==
LOC: EDBD 14:16 → C.EDB 14:17
DX: R05 Cough (principal); R06.2 Wheezing; G40.909 Epilepsy, unspecified, not intractable, without status epilepticus; R56.9 Unspecified convulsions; Z82.49 Family history of ischemic heart disease and other diseases of the circulatory system; Z91.018 Allergy to other foods; Z88.8 Allergy status to other drugs, medicaments and biological substances

== ENCOUNTER 2017-05-01 08:23 | Emergency (ER) | payer OTHER ==
[~2017-05-01] VITALS: Ht 182.9 cm; Wt 80.8 kg
[~2017-05-01 08:23] MED LIST changes: +GABA-112 PO; +LAMO1TAB79 PO; +LAMO50TA PO; -LAMOTRIGINE PO; -Lamotrigine PO; -NRN100 PO; +OSEL75CA23 PO
[2017-05-01 08:29] VITALS: TEMP 37.1; Ht 182.9 cm; Wt 80.8 kg
[2017-05-01 08:33] VITALS: O2SAT 94
[2017-05-01] MEDS ORDERED: ACETAMINOPHEN 500 MG TAB PO STA (08:43)
[2017-05-01] MEDS ORDERED: DEXT30LI4 PO (08:59)
[2017-05-01] MEDS ORDERED: CARB6.5S27 OT (08:59)
[2017-05-01] MEDS ORDERED: PRLSR20 PO (08:59)
[2017-05-01] MEDS ORDERED: LEVO1TAB35 PO (09:00)
--- NOTE | 2017-05-01 09:09 | EMERGENCY ROOM VISIT NOTE ---
History First contact with patient: 08:31 Chief Complaint: FALL Stated Complaint: FALL History of Present Illness The patient is a 51 year old male who presents to the Emergency Room via ambulance accompanied by the supervisor rides of his assisted-living facility with complaints of "fall". The patient as well as the supervisor rides at the facility state that earlier today he was starting to begin his day as he has an appointment later today and lost his balance and fell striking his head against a picture on the wall which broke as well as struck the heater and then the floor. He notes pain in the left side of his head and his right shoulder. He states that there was no chest pain or shortness of breath or syncope, rather he just lost his balance and fell. He notes a history of Parkinson's with tremor. The supervisor rides at the facility notes that today he seems be doing very well, however last night was chilled and over the past few days has been ill. He was on Tamiflu recently as well as Levaquin for pneumonia. She notes that their policy is to have the patient evaluated when he struck their head. She notes that he can tolerate pills and fluids with a straw. He denies pain anywhere else. Review of Systems A complete 10-point Review of Systems was discussed with the patient, with pertinent positives and negatives listed in the History of Present Illness. All remaining Review of Systems questions can be considered negative unless otherwise specified. Past Medical/Surgical History Medical Problems: (1) Altered mental status (2) Ambulatory dysfunction (3) Encephalopathy (4) Epilepsy (5) Hydronephrosis with ureteral calculus (6) Inguinal hernia (7) Kidney stone (8) Mild mental retardation (9) Rectal bleed (10) Seizure disorder (11) Seizures (12) Status epilepticus (13) TBI (traumatic brain injury) (14) Tegretol toxicity (15) Tremor (16) Urinary retention Family History Heart disease Hypertension Kidney disease Social History Smoking Status: Never Smoker Alcohol Use: none Drug Use: none Marital Status: single Housing Status: assisted living Occupation Status: disabled Current/Historical Medications Scheduled Buspirone Hcl (Buspar), 15 MG PO QAM Buspirone Hcl (Buspar), 30 MG PO HS Carbamide Peroxide (Otic) (Carbamide Peroxide), 5-10 DROPS OT BID Docusate Sodium (Colace), 100 MG PO BID Felbamate (Felbamate), 600 MG PO BID Fluoxetine Hcl (Prozac), 20 MG PO DAILY Gabapentin (Neurontin), 100 MG PO TID Lacosamide (Vimpat), 200 MG PO BID Lamotrigine (Lamotrigine Er), 300 MG PO BID Lamotrigine (Lamictal Xr), 50 MG PO BID Levofloxacin (Levaquin), 750 MG PO DAILY Multiple Vitamins W/ Minerals (Preservision Areds 2), 2 CAP PO QAM Omeprazole (Prilosec), 20 MG PO QAM Propranolol Hcl (Propranolol Hcl Er), 80 MG PO BID Sennosides-Docusate Sodium (Senokot S), 1 TAB PO HS [Clobazam], 5 MG PO Q12 Scheduled PRN Acetaminophen (Tylenol), 500 MG PO Q4H PRN for Pain Alum & Mag Hydrox-Simethicone (Antacid & Antigas 200-200-20 mg/5Ml), 30 ML PO Q6 PRN for Dextromethorphan Polistirex (Delsym), 10 ML PO Q12 PRN for Cough Loperamide Hcl (Imodium A-D), 4 MG PO UD PRN for Diarrhea Magnesium Hydroxide (Milk Of Magnesia), 30 ML PO UD PRN for Constipation Neomycin/Polymyx/Bacitr (Neosporin), 1 APPL TOP BID PRN for CUTS,SCRAPES, ABRASIONS Physical Exam Vital Signs Date Time Temp Pulse Resp B/P (MAP) Pulse Ox O2 Delivery O2 Flow Rate FiO2 05/01/17 11:23 56 18 111/71 95 Room Air 05/01/17 10:34 56 16 96 Room Air 05/01/17 08:33 94 Room Air 05/01/17 08:32 53 05/01/17 08:29 37.1 56 18 118/75 94 Room Air Physical Exam VITAL SIGNS - Vital signs and nursing notes were reviewed. Stable. GENERAL - 51-year-old male appearing his stated age who is in no acute distress. Communicates well with provider and answers questions appropriately but slightly delayed in response. SKIN - Without rashes. HEAD - NC/AT. EYES - PERRL with EOMI bilaterally. Sclera anicteric. EARS - No deformities of external structures noted on gross examination bilaterally. No pain elicited with palpation of the tragus bilaterally. External auditory canals without discharge or otorrhea. Tympanic membranes pearly garcia without retraction or bulging. No fluid or purulent material visualized behind the TM. Handle of malleus, umbo, cone of light, pars tensa/ flaccid all easily visualized. NOSE - Midline and without cyanosis. No epistaxis or purulent drainage noted. MOUTH/OROPHARYNX - Without perioral cyanosis. NECK - Neck with FROM. Supple to palpation. No C spine tenderness. LUNGS - Chest wall symmetric without accessory muscle use, intercostals retractions, or central cyanosis. Normal vesicular breath sounds CTA B/L. No wheezes, rales, or rhonchi appreciated. CARDIAC - RRR with S1/S2. No murmur, rubs, or gallops appreciated. ABDOMEN - Abdominal contour normal without pulsations or visible masses. No tenderness. EXTREMITIES - No clubbing or peripheral cyanosis. NEUROLOGIC - Cranial nerves II through XII grossly intact. PSYCH - A&O, and cooperates fully with examiner. Pt is very pleasant and interacts well with examiner. Medical Decision & Procedures ER Provider Diagnostic Interpretation: HEAD WITHOUT CONTRAST (CT) CLINICAL HISTORY: 51 years-old Male with Fall, struck head. . Acute head injury status post fall TECHNIQUE: Multiple axial CT images of the head were obtained without contrast. A dose lowering technique was utilized adhering to the principles of ALARA. COMPARISON: CT head 01/01/2017. FINDINGS: No acute intracranial hemorrhage, midline shift, intracranial mass, hydrocephalus, territorial ischemia or abnormal extra-axial collection. The calvarium is intact. The mastoid air cells and middle ear cavities are clear. Moderate to severe mucosal thickening of the bilateral maxillary sinuses with moderate right frontal and bilateral ethmoid sinus disease. The scalp, soft tissues and orbits appear unremarkable. IMPRESSION: 1. No acute intracranial abnormality. 2. Moderate to severe paranasal sinus disease. The above report was generated using voice recognition software. It may contain grammatical, syntax or spelling errors. Electronically signed by: Yogesh Keen M.D. 05/01/2017 9:30 AM Dictated Date/Time: 05/01/2017 9:[address] OF THE CERVICAL SPINE CLINICAL HISTORY: Neck pain status post trauma COMPARISON STUDY: January 2017 CT DOSE: 1205.56 mGy.cm TECHNIQUE: CT scan of the cervical spine was performed from the skull base to the thoracic inlet. Images are reviewed in the axial, sagittal, and coronal planes. IV contrast was not administered for this examination. A dose lowering technique was utilized adhering to the principles of ALARA. FINDINGS: The visualized portions of the lung apices reveal no evidence of pneumothorax. There is a 6 mm right lobe thyroid nodule The prevertebral soft tissues are normal. No fractures or subluxations are visualized. There are multilevel degenerative changes, most pronounced the C5-C6, and C6-7 levels. There is a calcification within the ligamentum nuchae. IMPRESSION: No evidence of acute fracture or traumatic subluxation. Electronically signed by: Terrence Liang M.D. 05/01/2017 9:38 AM Dictated Date/Time: 05/01/2017 9:30 AM CHEST ONE VIEW PORTABLE CLINICAL HISTORY: Fall, recent pneumonia COMPARISON STUDY: April 23, 2017 FINDINGS: The heart is at the upper limits of normal in size. There are linear areas of bibasal atelectasis/scarring. There is no failure. There is no focal pulmonary consolidation. There are no pleural effusions.[ IMPRESSION: Basilar atelectatic change. No acute findings Electronically signed by: Terrence Liang M.D. 05/01/2017 10:46 AM Dictated Date/Time: 05/01/2017 10:45 AM R SHOULDER MIN 2 VIEWS ROUTINE CLINICAL HISTORY: Right shoulder pain status post trauma COMPARISON: March 2016 DISCUSSION: The bones and joint spaces appear intact. There is no evidence of fracture, dislocation or bony disease. IMPRESSION: No fractures or dislocations identified. Electronically signed by: Terrence Liang M.D. 05/01/2017 10:46 AM Dictated Date/Time: 05/01/2017 10:46 AM Laboratory Results 05/01/17 09:00 Red Blood Count 4.49, Mean Corpuscular Volume 90.4, Mean Corpuscular Hemoglobin 31.6, Mean Corpuscular Hemoglobin Concent 35.0, Mean Platelet Volume 8.5, Neutrophils (%) (Auto) 64.9, Lymphocytes (%) (Auto) 23.8, Monocytes (%) (Auto) 9.9, Eosinophils (%) (Auto) 0.4, Basophils (%) (Auto) 0.4, Neutrophils # (Auto) 3.00, Lymphocytes # (Auto) 1.10, Monocytes # (Auto) 0.46, Eosinophils # (Auto) 0.02, Basophils # (Auto) 0.02 05/01/17 09:00 Test 05/01/17 09:00 White Blood Count 4.63 K/uL (4.8-10.8) Red Blood Count 4.49 M/uL (4.7-6.1) Hemoglobin 14.2 g/dL (14.0-18.0) Hematocrit 40.6 % (42-52) Mean Corpuscular Volume 90.4 fL (80-100) Mean Corpuscular Hemoglobin 31.6 pg (25-34) Mean Corpuscular Hemoglobin Concent 35.0 g/dl (32-36) Platelet Count 177 K/uL (130-400) Mean Platelet Volume 8.5 fL (7.4-10.4) Neutrophils (%) (Auto) 64.9 % Lymphocytes (%) (Auto) 23.8 % Monocytes (%) (Auto) 9.9 % Eosinophils (%) (Auto) 0.4 % Basophils (%) (Auto) 0.4 % Neutrophils # (Auto) 3.00 K/uL (1.4-6.5) Lymphocytes # (Auto) 1.10 K/uL (1.2-3.4) Monocytes # (Auto) 0.46 K/uL (0.11-0.59) Eosinophils # (Auto) 0.02 K/uL (0-0.5) Basophils # (Auto) 0.02 K/uL (0-0.2) RDW Standard Deviation 42.9 fL (36.4-46.3) RDW Coefficient of Variation 13.1 % (11.5-14.5) Immature Granulocyte % (Auto) 0.6 % Immature Granulocyte # (Auto) 0.03 K/uL (0.00-0.02) Anion Gap 8.0 mmol/L (3-11) Est Creatinine Clear Calc Drug Dose 106.6 ml/min Estimated GFR () 113.9 Estimated GFR (Non- 98.3 BUN/Creatinine Ratio 8.8 (10-20) Calcium Level 8.8 mg/dl (8.5-10.1) Total Bilirubin 0.5 mg/dl (0.2-1) Aspartate Amino Transf (AST/SGOT) 17 U/L (15-37) Alanine Aminotransferase (ALT/SGPT) 18 U/L (12-78) Alkaline Phosphatase 124 U/L (45-117) Total Protein 6.7 gm/dl (6.4-8.2) Albumin 3.6 gm/dl (3.4-5.0) Globulin 3.1 gm/dl (2.5-4.0) Albumin/Globulin Ratio 1.1 (0.9-2) Medications Administered Medications (Trade) Dose Ordered Sig/Hugh Route Start Time Stop Time Status Last Admin Dose Admin Acetaminophen (Tylenol Tab) 500 mg NOW STAT PO 05/01/17 08:43 05/01/17 08:46 DC 05/01/17 10:32 500 MG Medical Decision Patient was seen and evaluated as above. After obtaining a thorough history and physical examination the above work up was performed. He presents to us today status post mechanical fall. Patient notes that he did not lose consciousness, have chest pain or shortness of breath rather he just lost his balance and fell backwards. CT scan of head and cervical spine are negative for acute process. Thyroid nodule noted. They were informed. X-rays negative for acute process. CBC reveals slight decrease in white blood cell count or blood cell count. No emergent process. Metabolic panel reveals no evidence of emergent process. I suspect he stable for outpatient management status post mechanical fall. Case was discussed with the attending physician. The patient was educated upon management, had questions answered prior to discharge, and was discharged home in good condition. I attest that I have personally reviewed the patient medication list. The patient's blood pressure was reviewed and was found to be normal In the evaluation and treatment of this patient, the following differential diagnoses were considered: Concussion, Contrecoup Injury, Brain Tumor, Depression, Encephalitis, Hypothyroidism, Meningitis, CVA, TIA, Migraine, Cluster Headache, Intracranial Abnormality, Intracranial Hemorrhage, Subdural Hematoma, Subarachnoid Hemorrhage, Hydrocephalus, Musculoskeletal Strain, Discitis, Cervical Spine Fracture, Cervical Spine Dislocation, Cervical Spine Subluxation, Cervical Spondylosis, Fibromyalgia, Osteoarthritis, Polymyalgia Rheumatica, Psychogenic Pain Disorder, Tumor of Soft Tissue or Spine, Shoulder Contusion, Shoulder Fracture, Shoulder Dislocation, Thoracic Outlet Syndrome, Adhesive Capsulitis, Rotator Cuff Tear, Proximal Clavicle Head Fracture, Apical Pneumonia, Pneumothorax, Hemothorax, or TB. Impression Primary Impression: Fall Additional Impressions: Hypokalemia Head pain Shoulder pain, right Thyroid nodule Departure Information Dispostion Home / Self-Care Condition GOOD Referrals Jose Juan Brady M.D. (PCP) Patient Instructions [facility] Additional Instructions You have been treated in the Emergency Department for a Closed Head Injury following a fall. CT Scan of your head/brain demonstrated no acute bleeding or other emergent abnormalities. This does not completely rule out the risk for future damage to the brain. I recommend talking with the family doctor tomorrow about his low potassium For pain control, you can use the following lbos-jal-ziqtyil medicines (if >12 yo): - Regular strength (325mg/tab) Tylenol (acetaminophen) 2 tabs every 4-6 hours as needed. Do not exceed 12 tablets in a 24 hour period. Avoid taking more than 3 grams (3000 mg) of Tylenol per day. This includes any other sources of acetaminophen you may take on a regular basis. You should relax in a quiet, dark place for the rest of the day. Avoid any possible triggers including: cigarette smoke, caffeine, nicotine, chocolate, wine, beer, loud noises or music, or bright lights. You should schedule a follow-up appointment with your Primary Care Provider following todays visit (keep tomorrow appt) Return to the Emergency Department if your current symptoms worsen despite treatment course outlined above, or if you develop any of the following symptoms : intractable pain despite aforementioned treatment course, visual disturbances , loss of vision, unilateral weakness or facial drooping, slurring of speech, loss of coordination, or loss of consciousness. Problem Qualifiers
[2017-05-01 09:11] LABS: BASO % 0.4 %; BASO ABS # 0.02 K/uL (0-0.2); EOS % 0.4 %; EOS ABS # 0.02 K/uL (0-0.5); HEMATOCRIT 40.6 % (42-52); HEMOGLOBIN 14.2 g/dL (14.0-18.0); IG# 0.03 K/uL (0.00-0.02); LYMPH % 23.8 %; MEAN CELL VOLUME 90.4 fL (80-100); MEAN CORPUSCULAR HEMOGLOBIN 31.6 pg (25-34); MEAN PLATELET VOLUME 8.5 fL (7.4-10.4); MONO % 9.9 %; MONO ABS # 0.46 K/uL (0.11-0.59); NEUT % 64.9 %; PLATELET COUNT 177 K/uL (130-400); RED CELL DISTRIBUTION WIDTH CV 13.1 % (11.5-14.5); RED CELL DISTRIBUTION WIDTH SD 42.9 fL (36.4-46.3); WHITE BLOOD COUNT 4.63 K/uL (4.8-10.8)
[2017-05-01 09:31] LABS: ALBUMIN 3.6 gm/dl (3.4-5.0); CALCIUM 8.8 mg/dl (8.5-10.1); CREATININE 0.89 mg/dl (0.60-1.40); POTASSIUM 3.2 mmol/L (3.5-5.1)
--- NOTE | 2017-05-01 09:31 | DIAGNOSTIC IMAGING REPORT ---
HEAD WITHOUT CONTRAST (CT) CLINICAL HISTORY: 51 years-old Male with Fall, struck head. . Acute head injury status post fall TECHNIQUE: Multiple axial CT images of the head were obtained without contrast. A dose lowering technique was utilized adhering to the principles of ALARA. COMPARISON: CT head 01/01/2017. FINDINGS: No acute intracranial hemorrhage, midline shift, intracranial mass, hydrocephalus, territorial ischemia or abnormal extra-axial collection. The calvarium is intact. The mastoid air cells and middle ear cavities are clear. Moderate to severe mucosal thickening of the bilateral maxillary sinuses with moderate right frontal and bilateral ethmoid sinus disease. The scalp, soft tissues and orbits appear unremarkable. IMPRESSION: 1. No acute intracranial abnormality. 2. Moderate to severe paranasal sinus disease. The above report was generated using voice recognition software. It may contain grammatical, syntax or spelling errors. Electronically signed by: Yogesh Keen M.D. 05/01/2017 9:30 AM Dictated Date/Time: 05/01/2017 9:27 AM
[2017-05-01 09:33] LABS: TOTAL PROTEIN 6.7 gm/dl (6.4-8.2)
--- NOTE | 2017-05-01 09:39 | DIAGNOSTIC IMAGING REPORT ---
CT OF THE CERVICAL SPINE CLINICAL HISTORY: Neck pain status post trauma COMPARISON STUDY: January 2017 CT DOSE: 1205.56 mGy.cm TECHNIQUE: CT scan of the cervical spine was performed from the skull base to the thoracic inlet. Images are reviewed in the axial, sagittal, and coronal planes. IV contrast was not administered for this examination. A dose lowering technique was utilized adhering to the principles of ALARA. FINDINGS: The visualized portions of the lung apices reveal no evidence of pneumothorax. There is a 6 mm right lobe thyroid nodule The prevertebral soft tissues are normal. No fractures or subluxations are visualized. There are multilevel degenerative changes, most pronounced the C5-C6, and C6-7 levels. There is a calcification within the ligamentum nuchae. IMPRESSION: No evidence of acute fracture or traumatic subluxation. Electronically signed by: Terrence Liang M.D. 05/01/2017 9:38 AM Dictated Date/Time: 05/01/2017 9:30 AM
--- NOTE | 2017-05-01 10:47 | DIAGNOSTIC IMAGING REPORT ---
CHEST ONE VIEW PORTABLE CLINICAL HISTORY: Fall, recent pneumonia COMPARISON STUDY: April 23, 2017 FINDINGS: The heart is at the upper limits of normal in size. There are linear areas of bibasal atelectasis/scarring. There is no failure. There is no focal pulmonary consolidation. There are no pleural effusions.[ IMPRESSION: Basilar atelectatic change. No acute findings Electronically signed by: Terrence Liang M.D. 05/01/2017 10:46 AM Dictated Date/Time: 05/01/2017 10:45 AM
--- NOTE | 2017-05-01 10:48 | DIAGNOSTIC IMAGING REPORT ---
R SHOULDER MIN 2 VIEWS ROUTINE CLINICAL HISTORY: Right shoulder pain status post trauma COMPARISON: March 2016 DISCUSSION: The bones and joint spaces appear intact. There is no evidence of fracture, dislocation or bony disease. IMPRESSION: No fractures or dislocations identified. Electronically signed by: Terrence Liang M.D. 05/01/2017 10:46 AM Dictated Date/Time: 05/01/2017 10:46 AM
--- NOTE | 2017-05-01 11:10 | EMERGENCY ROOM VISIT NOTE ---
ED Visit Note First contact with patient: 08:31 Patient was seen by our PA/[employer]. I was involved in the patient's care and did evaluate the patient myself. I was involved in the care throughout the ER stay. The patient presents after a fall. No worrisome traumatic findings noted. Laboratory testing was unrevealing. Patient is being discharged to have his care resumed as before.
[2017-05-01 11:23] VITALS: BP 111/71; PULSE 56; O2SAT 95
== END 2017-05-01 11:30 | disposition home or self-care (01) ==
LOC: EDBD 08:23 → C.EDB 08:24
DX: M25.511 Pain in right shoulder (principal); R51 Headache; W19.XXXA Unspecified fall, initial encounter; Y92.10 Unspecified residential institution as the place of occurrence of the external cause; E04.1 Nontoxic single thyroid nodule; E87.6 Hypokalemia; G20 Parkinson's disease; G40.909 Epilepsy, unspecified, not intractable, without status epilepticus; G93.40 Encephalopathy, unspecified; Z87.442 Personal history of urinary calculi; Z87.820 Personal history of traumatic brain injury; Z82.49 Family history of ischemic heart disease and other diseases of the circulatory system; Z84.1 Family history of disorders of kidney and ureter; Z79.899 Other long term (current) drug therapy; Z79.2 Long term (current) use of antibiotics

== ENCOUNTER 2017-05-10 11:19 | Inpatient (IN) | payer OTHER ==
[2017-05-09 23:30] VITALS: BP 100/57; PULSE 61; TEMP 37.2; O2SAT 92
[~2017-05-10] VITALS: Ht 182.9 cm; Wt 77.4 kg
[~2017-05-10 11:19] MED LIST changes: +CARB6.5S27 OT; +DEXT30LI4 PO; +LEVO1TAB35 PO; -OSEL75CA23 PO; -PANT40TA PO; +PRLSR20 PO; -TRAM-10 PO
[2017-05-10] MEDS ORDERED: SODIUM CHLORIDE 0.9% 1000ML 1,000 ML IV STA (11:56)
[2017-05-10 12:30] LABS: BASO % 0.1 %; BASO ABS # 0.01 K/uL (0-0.2); EOS % 0.1 %; EOS ABS # 0.01 K/uL (0-0.5); HEMATOCRIT 45.4 % (42-52); HEMOGLOBIN 15.4 g/dL (14.0-18.0); IG# 0.02 K/uL (0.00-0.02); LYMPH % 13.6 %; LYMPH ABS # 1.11 K/uL (1.2-3.4); MEAN CORPUSCULAR HEMOGLOBIN 31.6 pg (25-34); MEAN CORPUSCULAR HGB CONC 33.9 g/dl (32-36); MEAN PLATELET VOLUME 8.7 fL (7.4-10.4); MONO ABS # 0.41 K/uL (0.11-0.59); NEUT ABS # 6.58 K/uL (1.4-6.5); PLATELET COUNT 164 K/uL (130-400); RED CELL DISTRIBUTION WIDTH CV 13.6 % (11.5-14.5); RED CELL DISTRIBUTION WIDTH SD 45.9 fL (36.4-46.3); WHITE BLOOD COUNT 8.14 K/uL (4.8-10.8)
--- NOTE | 2017-05-10 12:41 | DIAGNOSTIC IMAGING REPORT ---
CHEST ONE VIEW PORTABLE CLINICAL HISTORY: cough, vomiting, flu-like symptoms COMPARISON STUDY: May 01, 2017 FINDINGS: There is a thoracolumbar scoliosis. The heart is at the upper limits of normal in size. There are bibasal airspace opacities, atelectatic versus inflammatory. The lung zones are clear. There is no failure. There are no significant pleural effusions.[ IMPRESSION: Bibasilar opacities likely atelectatic although an inflammatory/infectious process could appear similar Electronically signed by: Terrence Liang M.D. 05/10/2017 12:40 PM Dictated Date/Time: 05/10/2017 12:38 PM
[2017-05-10 13:04] LABS: ALT/SGPT 18 U/L (12-78); BLOOD UREA NITROGEN 10 mg/dl (7-18); CALCIUM 9.2 mg/dl (8.5-10.1); CARBON DIOXIDE 31 mmol/L (21-32); CREATININE 0.98 mg/dl (0.60-1.40); GLUCOSE 104 mg/dl (70-99); LIPASE 259 U/L (73-393); POTASSIUM 3.8 mmol/L (3.5-5.1); SODIUM 140 mmol/L (136-145)
[2017-05-10 13:09] LABS: ALKALINE PHOSPHATASE 133 U/L (45-117); AST/SGOT 15 U/L (15-37); TOTAL PROTEIN 7.2 gm/dl (6.4-8.2)
[2017-05-10] MEDS ORDERED: OPTIRAY 320 IV PRN (13:45)
[2017-05-10] MEDS ORDERED: PIPERACILLIN/TAZOBACTAM 4.5 GM/100ML D5W IV STA (13:48)
[2017-05-10] MEDS ORDERED: VANCOMYCIN INJ 1,500 MG in SODIUM CHLORIDE 0.9% 500ML 500 ML IV STA (13:48)
[2017-05-10] MEDS ORDERED: VANCOMYCIN CONSULT ACTIVE PRN (14:00)
--- NOTE | 2017-05-10 14:18 | DIAGNOSTIC IMAGING REPORT ---
CT SCAN OF THE BRAIN WITHOUT IV CONTRAST CLINICAL HISTORY: Change in mental status. COMPARISON STUDY: CT of the brain dated 05/01/2017. TECHNIQUE: Unenhanced axial CT scan of the brain is performed from the vertex to the skull base. A dose lowering technique was utilized adhering to the principles of ALARA. CT DOSE: 614.27 mGy.cm FINDINGS: Brain parenchyma: The brain parenchyma is normal in appearance. There is no hemorrhage, mass effect, or evidence of acute territorial ischemia by CT criteria. Garcia-white matter is preserved. No extra-axial fluid collection is seen. Ventricles, sulci, cisterns: Normal in configuration. Intracranial vasculature: The visualized intracranial vasculature at the skull base is normal in appearance. Calvarium: Unremarkable. Sinuses and mastoids: Mild mucosal thickening is seen within the maxillary antra. The remaining visualized paranasal sinuses are clear. The mastoid air cells are well pneumatized. Orbits: The bony orbits are grossly intact. IMPRESSION: There is no hemorrhage, mass effect, or evidence of acute territorial ischemia by CT criteria. Electronically signed by: José Luis Major M.D. 05/10/2017 2:16 PM Dictated Date/Time: 05/10/2017 2:15 PM
--- NOTE | 2017-05-10 14:24 | DIAGNOSTIC IMAGING REPORT ---
CT ABD/PELVIS IV CONTRAST ONLY CLINICAL HISTORY: vomiting COMPARISON STUDY: 02/18/2017 TECHNIQUE: Following the IV administration of 93 mL of Optiray-320, CT scan of the abdomen and pelvis was performed from the lung bases to the proximal femurs. Images are reviewed in the axial, sagittal, and coronal planes. IV contrast was administered without complication. A dose lowering technique was utilized adhering to the principles of ALARA. CT DOSE: 483.22 mGy.cm FINDINGS: Lower chest: There is a lower lobe calcified granuloma. There is lower lobe bronchial wall thickening and mucous plugging. Liver: There is a stable 14 mm hypodensity within left hepatic lobe anteriorly, possibly representing focal fat Gallbladder: Surgically absent Spleen: Normal in size and attenuation. Pancreas: Unremarkable. Adrenal glands: Unremarkable. Kidneys: There is symmetric renal cortical enhancement. The kidneys are normal in size without hydronephrosis. Bowel: There are no transition zones indicate bowel obstruction. The appendix appears normal. There is no evidence of acute diverticulitis. Peritoneum: There is no intraperitoneal free air or abdominal ascites. There are postsurgical changes are prior left inguinal hernia repair Vasculature: The abdominal aorta is normal in course and caliber. Adenopathy: None. Pelvic viscera: There is a thick walled contracted bladder. The prostate measures 53 mm. Skeletal structures: There is an old superior endplate L2 deformity. IMPRESSION: 1. No evidence of bowel obstruction. No evidence of free air 2. Normal appendix. No evidence of acute diverticulitis 3. Lower lobe bronchial wall thickening and mucous plugging 4. Thick-walled contracted bladder Electronically signed by: Terrence Liang M.D. 05/10/2017 2:23 PM Dictated Date/Time: 05/10/2017 2:16 PM
--- NOTE | 2017-05-10 15:05 | EMERGENCY ROOM VISIT NOTE ---
History First contact with patient: 11:40 Chief Complaint: FLU LIKE SX Stated Complaint: FLU SYMPTOMS History of Present Illness The patient is a 51 year old male who presents to the Emergency Room accompanied by a hatchery supervisor from his correction who reports the patient has a change in mental status. History is somewhat limited due to patient's mental status. The hatchery supervisor reports that the patient has not been at his baseline status for the last week. She states that he has been mumbling and rambling but is unable to carry a conversation. She states that normally, he answers questions appropriately and is able to carry a conversation and take care of himself. She states that he was treated with Tamiflu 3 weeks ago for flulike symptoms. A few days after starting the Tamiflu, he was diagnosed with pneumonia and treated with Levaquin. She states that he has had vomiting, several episodes every day and has not been eating much. He saw his primary care provider one week ago who told him he would need to "ride it out." The hatchery supervisor states that he has lost 20 pounds in the past 3 weeks. They have been encouraging him to eat and have added Ensure. He has not had any fevers. She states he has had a persistent cough. He has history of intellectual disability, behavioral issues and a tremor. Review of Systems Review of systems was limited due to patient's mental status. Past Medical/Surgical History Medical Problems: (1) Altered mental status (2) Ambulatory dysfunction (3) Encephalopathy (4) Epilepsy (5) Hydronephrosis with ureteral calculus (6) Inguinal hernia (7) Kidney stone (8) Mild mental retardation (9) Nausea and vomiting (10) Rectal bleed (11) Seizure disorder (12) Seizures (13) Status epilepticus (14) TBI (traumatic brain injury) (15) Tegretol toxicity (16) Tremor (17) Urinary retention Family History Heart disease Hypertension Kidney disease Social History Smoking Status: Never Smoker Alcohol Use: none Drug Use: none Marital Status: single Housing Status: assisted living Occupation Status: disabled Current/Historical Medications Scheduled Buspirone Hcl (Buspar), 15 MG PO QAM Buspirone Hcl (Buspar), 30 MG PO HS Carbamide Peroxide (Otic) (Carbamide Peroxide), 5-10 DROPS OT BID Docusate Sodium (Colace), 100 MG PO BID Felbamate (Felbamate), 600 MG PO BID Fluoxetine Hcl (Prozac), 20 MG PO DAILY Gabapentin (Neurontin), 100 MG PO TID Lacosamide (Vimpat), 200 MG PO BID Lamotrigine (Lamotrigine Er), 300 MG PO BID Lamotrigine (Lamictal Xr), 50 MG PO BID Multiple Vitamins W/ Minerals (Preservision Areds 2), 2 CAP PO QAM Omeprazole (Prilosec), 20 MG PO QAM Propranolol Hcl (Propranolol Hcl Er), 80 MG PO BID Sennosides-Docusate Sodium (Senokot S), 1 TAB PO HS [Clobazam], 5 MG PO Q12 Scheduled PRN Acetaminophen (Tylenol), 500 MG PO Q4H PRN for Pain Alum & Mag Hydrox-Simethicone (Antacid & [place]ig[place] 200-200-20 mg/5Ml), 30 ML PO Q6 PRN for Dextromethorphan Polistirex (Delsym), 10 ML PO Q12 PRN for Cough Loperamide Hcl (Imodium A-D), 4 MG PO UD PRN for Diarrhea Magnesium Hydroxide (Milk Of Magnesia), 30 ML PO UD PRN for Constipation Neomycin/Polymyx/Bacitr (Neosporin), 1 APPL TOP BID PRN for CUTS,SCRAPES, ABRASIONS Physical Exam Vital Signs Date Time Temp Pulse Resp B/P (MAP) Pulse Ox O2 Delivery O2 Flow Rate FiO2 05/10/17 15:36 72 20 111/77 95 Room Air 05/10/17 14:32 66 20 124/75 97 Room Air 05/10/17 11:55 55 05/10/17 11:30 36.4 52 20 117/93 93 Room Air Physical Exam VITALS: Vitals are noted on the nurse's note and reviewed by myself. Vital signs stable. GENERAL: This is a 51-year-old male, lying towards his right side, tremors noted. SKIN: The skin was without rashes. HEAD: Normocephalic atraumatic. EARS: External auditory canals clear, tympanic membranes pearly garcia without erythema or effusion bilaterally. EYES: Pupils equal round and reactive to light and accommodation. MOUTH: Mucous membranes moist. Tonsils are not enlarged. Pharynx without erythema or exudate. NECK: Supple without nuchal rigidity. HEART: Regular rate and rhythm without murmurs gallops or rubs. LUNGS: Coarse breath sounds throughout. ABDOMEN: Positive bowel sounds x 4. Soft, nondistended. No obvious tenderness to palpation. NEURO: Patient opens eyes to his name, occasionally mumbles but is unable to hold conversation/answer questions appropriately. Medical Decision & Procedures ER Provider Diagnostic Interpretation: CHEST ONE VIEW PORTABLE FINDINGS: There is a thoracolumbar scoliosis. The heart is at the upper limits of normal in size. There are bibasal airspace opacities, atelectatic versus inflammatory. The lung zones are clear. There is no failure. There are no significant pleural effusions.[ IMPRESSION: Bibasilar opacities likely atelectatic although an inflammatory/infectious process could appear similar CT SCAN OF THE BRAIN WITHOUT IV CONTRAST FINDINGS: Brain parenchyma: The brain parenchyma is normal in appearance. There is no hemorrhage, mass effect, or evidence of acute territorial ischemia by CT criteria. Garcia-white matter is preserved. No extra-axial fluid collection is seen. Ventricles, sulci, cisterns: Normal in configuration. Intracranial vasculature: The visualized intracranial vasculature at the skull base is normal in appearance. Calvarium: Unremarkable. Sinuses and mastoids: Mild mucosal thickening is seen within the maxillary antra. The remaining visualized paranasal sinuses are clear. The mastoid air cells are well pneumatized. Orbits: The bony orbits are grossly intact. IMPRESSION: There is no hemorrhage, mass effect, or evidence of acute territorial ischemia by CT criteria. CT ABD/PELVIS IV CONTRAST ONLY FINDINGS: Lower chest: There is a lower lobe calcified granuloma. There is lower lobe bronchial wall thickening and mucous plugging. Liver: There is a stable 14 mm hypodensity within left hepatic lobe anteriorly, possibly representing focal fat Gallbladder: Surgically absent Spleen: Normal in size and attenuation. Pancreas: Unremarkable. Adrenal glands: Unremarkable. Kidneys: There is symmetric renal cortical enhancement. The kidneys are normal in size without hydronephrosis. Bowel: There are no transition zones indicate bowel obstruction. The appendix appears normal. There is no evidence of acute diverticulitis. Peritoneum: There is no intraperitoneal free air or abdominal ascites. There are postsurgical changes are prior left inguinal hernia repair Vasculature: The abdominal aorta is normal in course and caliber. Adenopathy: None. Pelvic viscera: There is a thick walled contracted bladder. The prostate measures 53 mm. Skeletal structures: There is an old superior endplate L2 deformity. IMPRESSION: 1. No evidence of bowel obstruction. No evidence of free air 2. Normal appendix. No evidence of acute diverticulitis 3. Lower lobe bronchial wall thickening and mucous plugging 4. Thick-walled contracted bladder Laboratory Results 05/10/17 12:15 Red Blood Count 4.88, Mean Corpuscular Volume 93.0, Mean Corpuscular Hemoglobin 31.6, Mean Corpuscular Hemoglobin Concent 33.9, Mean Platelet Volume 8.7, Neutrophils (%) (Auto) 81.0, Lymphocytes (%) (Auto) 13.6, Monocytes (%) (Auto) 5.0, Eosinophils (%) (Auto) 0.1, Basophils (%) (Auto) 0.1, Neutrophils # (Auto) 6.58, Lymphocytes # (Auto) 1.11, Monocytes # (Auto) 0.41, Eosinophils # (Auto) 0.01, Basophils # (Auto) 0.01 05/10/17 12:15 Test 05/10/17 12:15 05/10/17 13:50 White Blood Count 8.14 K/uL (4.8-10.8) Red Blood Count 4.88 M/uL (4.7-6.1) Hemoglobin 15.4 g/dL (14.0-18.0) Hematocrit 45.4 % (42-52) Mean Corpuscular Volume 93.0 fL (80-100) Mean Corpuscular Hemoglobin 31.6 pg (25-34) Mean Corpuscular Hemoglobin Concent 33.9 g/dl (32-36) Platelet Count 164 K/uL (130-400) Mean Platelet Volume 8.7 fL (7.4-10.4) Neutrophils (%) (Auto) 81.0 % Lymphocytes (%) (Auto) 13.6 % Monocytes (%) (Auto) 5.0 % Eosinophils (%) (Auto) 0.1 % Basophils (%) (Auto) 0.1 % Neutrophils # (Auto) 6.58 K/uL (1.4-6.5) Lymphocytes # (Auto) 1.11 K/uL (1.2-3.4) Monocytes # (Auto) 0.41 K/uL (0.11-0.59) Eosinophils # (Auto) 0.01 K/uL (0-0.5) Basophils # (Auto) 0.01 K/uL (0-0.2) RDW Standard Deviation 45.9 fL (36.4-46.3) RDW Coefficient of Variation 13.6 % (11.5-14.5) Immature Granulocyte % (Auto) 0.2 % Immature Granulocyte # (Auto) 0.02 K/uL (0.00-0.02) Anion Gap 6.0 mmol/L (3-11) Estimated GFR () 102.3 Estimated GFR (Non- 88.3 BUN/Creatinine Ratio 9.9 (10-20) Calcium Level 9.2 mg/dl (8.5-10.1) Magnesium Level 2.1 mg/dl (1.8-2.4) Total Bilirubin 0.5 mg/dl (0.2-1) Direct Bilirubin 0.2 mg/dl (0-0.2) Aspartate Amino Transf (AST/SGOT) 15 U/L (15-37) Alanine Aminotransferase (ALT/SGPT) 18 U/L (12-78) Alkaline Phosphatase 133 U/L (45-117) Troponin I < 0.015 ng/ml (0-0.045) Total Protein 7.2 gm/dl (6.4-8.2) Albumin 4.0 gm/dl (3.4-5.0) Lipase 259 U/L (73-393) Hepatitis C Antibody Screen NEG (NEG) Urine Color DK YELLOW Urine Appearance CLEAR (CLEAR) Urine pH 5.5 (4.5-7.5) Urine Specific [place] 1.038 (1.000-1.030) Urine Protein TRACE (NEG) Urine Glucose (UA) NEG (NEG) Urine Ketones 1+ (NEG) Urine Occult Blood NEG (NEG) Urine Nitrite NEG (NEG) Urine Bilirubin NEG (NEG) Urine Urobilinogen NEG (NEG) Urine Leukocyte Esterase SMALL (NEG) Urine WBC (Auto) 0 /hpf (0-5) Urine RBC (Auto) 0-4 /hpf (0-4) Urine Hyaline Casts (Auto) 0 /lpf (0-5) Urine Epithelial Cells (Auto) 0-5 /lpf (0-5) Urine Bacteria (Auto) NEG (NEG) Medications Administered Medications (Trade) Dose Ordered Sig/Hugh Route Start Time Stop Time Status Last Admin Dose Admin Sodium Chloride 1,000 ml @ 999 mls/hr Q1H1M STAT IV 05/10/17 11:56 05/10/17 12:56 DC 05/10/17 12:17 999 MLS/HR Vancomycin HCl 1500 mg/Sodium Chloride 530 ml @ 200 mls/hr ONE STAT IV 05/10/17 13:48 05/10/17 16:26 DC 05/10/17 15:35 200 MLS/HR Piperacillin Sod/ Tazobactam Sod (Zosyn Iv) 4.5 gm NOW STAT IV 05/10/17 13:48 05/10/17 13:51 DC 05/10/17 14:27 4.5 GM ECG Per My Interpretation Indication: altered mental status Rate (beats per minute): 52 Rhythm: sinus bradycardia Findings: T-wave inversion (Anterolateral) Change: no significant change Medical Decision Differential diagnosis includes intracranial bleed, CVA, electrolyte abnormality , sepsis, pneumonia, UTI, among others. The patient is a 51-year-old male who presents today for evaluation of change in mental status. Per his food handler, he has been declining and has not been at his baseline for at least 1 week. Labs revealed no leukocytosis, anemia or concerning electrolyte abnormalities. Urinalysis not suggestive of a UTI. CT head and abdomen/pelvis were negative. Chest x-ray does show evidence of bibasilar atelectasis versus infectious process. Patient does live in a correction and there is concern for healthcare acquired pneumonia. Patient seems to have difficulty handling his secretions and I would also consider aspiration pneumonia. He was covered with vancomycin and Zosyn. He will be admitted for further evaluation of pneumonia and change in mental status. The patient was independently evaluated by Dr. Dai, ED attending physician, who agreed with my assessment and treatment plan. Medication Reconcilliation Current Medication List: was personally reviewed by me Blood Pressure Screening Patient's blood pressure: Normal blood pressure Impression Primary Impression: Change in mental status Additional Impression: Pneumonia Departure Information Referrals Jose Juan Brady M.D. (PCP) Patient Instructions My [facility] Problem Qualifiers Primary Impression: Change in mental status Altered mental status type: unspecified Qualified Codes: R41.82 - Altered mental status, unspecified Additional Impression: Pneumonia Pneumonia type: due to unspecified organism Laterality: bilateral Lung location: lower lobe of lung Qualified Codes: J18.9 - Pneumonia, unspecified organism
[2017-05-10] MEDS ORDERED: MAGNESIUM HYDROXIDE SUSP 30 ML UDC PO PRN ×2 (15:15→16:00)
[2017-05-10] MEDS ORDERED: ONDANSETRON INJ 2 MG/ML 2 ML VIAL IV PRN (16:00)
[2017-05-10] MEDS ORDERED: ALUMINUM/MAGNESIUM/SIMETH (MAALOX MAX) 30 ML UDC PO PRN (16:00)
[2017-05-10] MEDS ORDERED: ALBUT/IPRATROP 3MG/0.5MG NEB 3 ML VIAL INH PRN (16:00)
[2017-05-10] MEDS ORDERED: POLYETHYLENE (MIRALAX) 17 GM PACK PO PRN (16:00)
--- NOTE | 2017-05-10 16:30 | DIAGNOSTIC IMAGING REPORT ---
CT SCAN OF THE CHEST WITHOUT IV CONTRAST CLINICAL HISTORY: Vomiting. COMPARISON STUDY: Chest x-ray dated 05/10/2017. TECHNIQUE: CT scan of the thorax was performed from the thoracic inlet to the upper abdomen. Images are reviewed in the axial, sagittal, and coronal planes. IV contrast was not administered for this examination as per the front clinician. A dose lowering technique was utilized adhering to the principles of ALARA. The examination is degraded by streak artifact from the patient's arms which could not be elevated above the chest. CT DOSE: 403.35 mGy.cm FINDINGS: Thyroid: Imaged portions of the thyroid gland are normal in size and heterogeneous in attenuation. Thoracic aorta: The thoracic aorta is normal in caliber and demonstrates standard 3-vessel arch anatomy. Heart: The heart is enlarged and without pericardial effusion. The pulmonary trunk is dilated, measuring 3.3 cm in transverse diameter. This suggests pulmonary artery hypertension. Lungs and pleural spaces: Evaluation of the lung parenchyma is degraded by motion artifact. Fluid fills the esophagus to the level of the aortic arch. Fluid/debris is present within the dependent lower lobe airways. Patchy airspace opacities are seen in the lower lobes bilaterally. Foci of scarring versus atelectasis are present the lung bases. A large calcified granuloma is seen in the right lower lobe. No pleural effusion is identified. Mediastinum: There is no mediastinal lymphadenopathy. Cori: Not well assessed without IV contrast. There are calcification containing hilar nodes. Axillae: There is no axillary lymphadenopathy. Upper abdomen: Cholecystectomy clips are noted. A tiny hiatal hernia is identified. Skeletal structures: The skeletal structures are osteopenic. Mild degenerative change and scoliosis are noted in the thoracic spine. No lytic or blastic bony lesions are seen. IMPRESSION: 1. There is patchy groundglass consolidation seen in the lower lobes bilaterally. Correlate clinically for evidence of pneumonia/aspiration pneumonitis. 2. Fluid fills the esophagus to the level of the aortic arch. Additionally, there is fluid/debris within the dependent lower lobe airways. These findings raise suspicion for possible aspiration. Clinical correlation will be required. 3. Cardiomegaly. 4. Additional findings as above. Electronically signed by: José Luis Major M.D. 05/10/2017 4:29 PM Dictated Date/Time: 05/10/2017 4:24 PM
--- NOTE | 2017-05-10 16:38 | History and Physical ---
History & Physical Date & Time of Service: May 10, 2017 at 16:04 Chief Complaint: Flu Symptoms Primary Care Physician: Jose Juan Brady M.D. History of Present Illness Source: caregiver, hospital records 51 y/o M Hx severe epilepsy, chronic ataxia, intellectual impairment, TBA. The pt is brought to the ER by a caregiver at [facility] jail for altered mentation, nausea, vomiting and a cough. He normally maintains a degree of independence, however, he is currently unable to assist in his own ADLs or carry a conversation. His mental status has apparently deteriorated over the past week. Intermittent nausea and vomiting are reported over the past few days. 2 weeks ago, the pt was treated for influenza and he was then given Levaquin one week ago for presumed pneumonia. He continues to exhibit a cough. He cannot contribute to the HPI. His turret lathe machinist states that he has not had any fevers. A CT of the abdomen was obtained which did not elucidate any acute abnormalities. There was mucous plugging and bronchial wall thickening reported in the RLL. Aside form his acute issues, his turret lathe machinist reports a poor appetite and weight loss of over 20lbs during the past month. Past Medical/Surgical History 1) Intellectual impairment 2) Refractory epilepsy 3) History of TBA 4) Ataxia 5) Tremor Family History Heart disease Hypertension Kidney disease Social History Pt is care-dependent - resides in a jail Smoking Status: Never Smoker Drug Use: none Marital Status: single Housing status: other Occupational Status: disabled Immunizations History of Influenza Vaccine: N/A Influenza Vaccine Date: Nov 03, 2009 History of Tetanus Vaccine?: Yes Tetanus Immunization Date: Jun 04, 2007 History of Pneumococcal: No History of Hepatitis B Vaccine: Unknown Hepatitis Immunization Date: Jun 04, 2007 Allergies Coded Allergies: Sulfamethoxazole w/Trimethoprim (Verified Allergy, Unknown, dizziness and increase in tremor, 05/10/17) Grapefruit (Verified Adverse Reaction, Unknown, INTERACTS WITH OTHER MEDS , 05/10/17) Ibuprofen (Verified Adverse Reaction, Unknown, avoids secondary to reactions with other medications, 05/10/17) Levetiracetam (Verified Adverse Reaction, Unknown, AGITATION, 05/10/17) Home Medications Scheduled Buspirone Hcl (Buspar), 15 MG PO QAM Buspirone Hcl (Buspar), 30 MG PO HS Carbamide Peroxide (Otic) (Carbamide Peroxide), 5-10 DROPS OT BID Docusate Sodium (Colace), 100 MG PO BID Felbamate (Felbamate), 600 MG PO BID Fluoxetine Hcl (Prozac), 20 MG PO DAILY Gabapentin (Neurontin), 100 MG PO TID Lacosamide (Vimpat), 200 MG PO BID Lamotrigine (Lamotrigine Er), 300 MG PO BID Lamotrigine (Lamictal Xr), 50 MG PO BID Multiple Vitamins W/ Minerals (Preservision Areds 2), 2 CAP PO QAM Omeprazole (Prilosec), 20 MG PO QAM Propranolol Hcl (Propranolol Hcl Er), 80 MG PO BID Sennosides-Docusate Sodium (Senokot S), 1 TAB PO HS [Clobazam], 5 MG PO Q12 Scheduled PRN Acetaminophen (Tylenol), 500 MG PO Q4H PRN for Pain Alum & Mag Hydrox-Simethicone (Antacid & [place]ig[place] 200-200-20 mg/5Ml), 30 ML PO Q6 PRN for Dextromethorphan Polistirex (Delsym), 10 ML PO Q12 PRN for Cough Loperamide Hcl (Imodium A-D), 4 MG PO UD PRN for Diarrhea Magnesium Hydroxide (Milk Of Magnesia), 30 ML PO UD PRN for Constipation Neomycin/Polymyx/Bacitr (Neosporin), 1 APPL TOP BID PRN for CUTS,SCRAPES, ABRASIONS Review of Systems Cannot obtain from pt - HPI obtained from records and turret lathe machinist Physical Exam Vital Signs Date Time Temp Pulse Resp B/P (MAP) Pulse Ox O2 Delivery O2 Flow Rate FiO2 05/10/17 14:32 66 20 124/75 97 Room Air 05/10/17 11:55 55 05/10/17 11:30 36.4 52 20 117/93 93 Room Air General Appearance: + pertinent finding (COnfused middle-aged male - cannot converse relevantly - he is awake and restless - does not appear distressed) Head: normocephalic Eyes: normal inspection ENT: normal ENT inspection, pharynx normal Neck: supple, no JVD Respiratory/Chest: + pertinent finding (Exam is limited and the pt would not stop mumbling or take a deep breath - there is no audible wheezing) Cardiovascular: regular rate, rhythm, no edema, no gallop Abdomen/GI: normal bowel sounds, non tender, soft Back: normal inspection, no CVA tenderness Extremities/Musculoskelatal: normal inspection, no calf tenderness, normal capillary refill Neurologic/Psych: + pertinent finding (Mumbling, confused - moving all extrems and exhibits titubation) Skin: normal color, warm/dry Diagnostics Laboratory Results Results Past 24 Hours Test 05/10/17 12:15 05/10/17 13:50 Range/Units White Blood Count 8.14 4.8-10.8 K/uL Red Blood Count 4.88 4.7-6.1 M/uL Hemoglobin 15.4 14.0-18.0 g/dL Hematocrit 45.4 42-52 % Mean Corpuscular Volume 93.0 80-100 fL Mean Corpuscular Hemoglobin 31.6 25-34 pg Mean Corpuscular Hemoglobin Concent 33.9 32-36 g/dl Platelet Count 164 130-400 K/uL Mean Platelet Volume 8.7 7.4-10.4 fL Neutrophils (%) (Auto) 81.0 % Lymphocytes (%) (Auto) 13.6 % Monocytes (%) (Auto) 5.0 % Eosinophils (%) (Auto) 0.1 % Basophils (%) (Auto) 0.1 % Neutrophils # (Auto) 6.58 1.4-6.5 K/uL Lymphocytes # (Auto) 1.11 1.2-3.4 K/uL Monocytes # (Auto) 0.41 0.11-0.59 K/uL Eosinophils # (Auto) 0.01 0-0.5 K/uL Basophils # (Auto) 0.01 0-0.2 K/uL RDW Standard Deviation 45.9 36.4-46.3 fL RDW Coefficient of Variation 13.6 11.5-14.5 % Immature Granulocyte % (Auto) 0.2 % Immature Granulocyte # (Auto) 0.02 0.00-0.02 K/uL Sodium Level 140 136-145 mmol/L Potassium Level 3.8 3.5-5.1 mmol/L Chloride Level 103 98-107 mmol/L Carbon Dioxide Level 31 21-32 mmol/L Anion Gap 6.0 3-11 mmol/L Blood Urea Nitrogen 10 7-18 mg/dl Creatinine 0.98 0.60-1.40 mg/dl Estimated GFR () 102.3 Estimated GFR (Non- 88.3 BUN/Creatinine Ratio 9.9 10-20 Random Glucose 104 70-99 mg/dl Calcium Level 9.2 8.5-10.1 mg/dl Magnesium Level 2.1 1.8-2.4 mg/dl Total Bilirubin 0.5 0.2-1 mg/dl Direct Bilirubin 0.2 0-0.2 mg/dl Aspartate Amino Transf (AST/SGOT) 15 15-37 U/L Alanine Aminotransferase (ALT/SGPT) 18 12-78 U/L Alkaline Phosphatase 133 45-117 U/L Troponin I < 0.015 0-0.045 ng/ml Total Protein 7.2 6.4-8.2 gm/dl Albumin 4.0 3.4-5.0 gm/dl Lipase 259 73-393 U/L Urine Color DK YELLOW Urine Appearance CLEAR CLEAR Urine pH 5.5 4.5-7.5 Urine Specific [place] 1.038 1.000-1.030 Urine Protein TRACE NEG Urine Glucose (UA) NEG NEG Urine Ketones 1+ NEG Urine Occult Blood NEG NEG Urine Nitrite NEG NEG Urine Bilirubin NEG NEG Urine Urobilinogen NEG NEG Urine Leukocyte Esterase SMALL NEG Urine WBC (Auto) 0 0-5 /hpf Urine RBC (Auto) 0-4 0-4 /hpf Urine Hyaline Casts (Auto) 0 0-5 /lpf Urine Epithelial Cells (Auto) 0-5 0-5 /lpf Urine Bacteria (Auto) NEG NEG Diagnostic Radiology CT abdomen: 1. No evidence of bowel obstruction. No evidence of free air 2. Normal appendix. No evidence of acute diverticulitis 3. Lower lobe bronchial wall thickening and mucous plugging 4. Thick-walled contracted bladder Impression Assessment and Plan 51 y/o M Hx severe epilepsy, chronic ataxia, intellectual impairment, TBA. The pt is brought to the ER by a caregiver at his jail for altered mentation, nausea, vomiting and a cough. He normally maintains a degree of independence, however, he is currently unable to assist in his own ADLs or carry a conversation. His mental status has apparently deteriorated over the past week. Intermittent nausea and vomiting are reported over the past few days. 2 weeks ago, the pt was treated for influenza and he was then given Levaquin one week ago for presumed pneumonia. He continues to exhibit a cough. He cannot contribute to the HPI. His turret lathe machinist states that he has not had any fevers. A CT of the abdomen was obtained which did not elucidate any acute abnormalities. There was mucous plugging and bronchial wall thickening reported in the RLL. Aside form his acute issues, his turret lathe machinist reports a poor appetite and weight loss of over 20lbs during the past month. 1) AMS - he had presented with AMS a few months ago. It was thought that this may have been due to recurrent seizures and post ictal state in addition to a GI infection. There was also suspicion of medication toxicities considering his multiple anticonvulsants. It may be that he has not been able to fully ingest a majority of his medications due to persistent vomiting. Infection may also be contributing as he was recently treated for PNM and Influenza. He does not currently exhibit leukocytosis and has not had fevers. We will consult neurology and r/o infection at present. He will continue his meds as scheduled as any dose reduction may lead to seizures. 2) Nausea and vomiting - cause is not clear - may be due to medications or infection - we will provide IVF, antiemetics and place him on a clear diet. He has apparently exhibited a poor appetite recently and per his turret lathe machinist has lost close to 20 pounds over the course of a month. He was receiving nutritional supplements at the jail. This may related to a process of progressive functional decline, however, if he continues to exhibit nausea and vomiting, GI should likely be consulted. 3) URI - as we will need to assess for a post-viral PNM, he will be sent for a CT chest. He was provided with Zosyn and Vancomycin in the ER. We do not have clear evidence of PNM or infection at present. 4) Seizure disorder - as mentioned, he will remain on his current meds pending neurology consultation. Full code - SCDs due to fall/trauma risk Total time for this admit including review of labs, meds, imaging, records - discussion with pt and ER attending - 47 min Resuscitation Status VTE Prophylaxis Will order VTE Prophylaxis: Yes
--- NOTE | 2017-05-10 16:45 | EMERGENCY ROOM VISIT NOTE ---
ED Visit Note First contact with patient: 12:40 The patient was seen and examined with whit. I agree with the history, physical and findings. Please see the note for disposition and details.
[2017-05-10 17:16] VITALS: BP 135/84; PULSE 71; TEMP 36.3; O2SAT 94; BMI 22.9
[2017-05-10] MEDS: D5NSS + 20MEQ KCL 1,000 ML IV SCH (19:12)
[2017-05-10 19:50] VITALS: BP 106/71; PULSE 74; TEMP 37.4; O2SAT 92
[2017-05-10] MEDS ORDERED: LAMOTRIGINE 300 MG PO SCH (21:00)
[2017-05-10] MEDS: BusPIRone 15 MG TAB PO SCH (21:50)
[2017-05-10] MEDS: DOCUSATE SODIUM 100 MG CAP PO SCH (21:51)
[2017-05-10] MEDS: LACOSAMIDE 50 MG TAB PO SCH (21:51)
[2017-05-10] MEDS: GABAPENTIN 100 MG CAP PO SCH (21:52)
[2017-05-10] MEDS: PROPRANOLOL HCL 80 MG LA CAP PO SCH (21:52)
[2017-05-10] MEDS: DOCUSATE SODIUM/SENNA 50/8.6MG TAB PO SCH (21:52)
[2017-05-10 23:30] VITALS: BP 100/57; PULSE 61; TEMP 37.2; O2SAT 92
[2017-05-11] VITALS (10 sets, daily range): BP systolic 110–150; BP diastolic 66–80; PULSE 53–80; TEMP 36.7–37.6; O2SAT 90–96; Ht 182.9 cm; Wt 77.4 kg
[2017-05-11] MEDS: ACETAMINOPHEN 325 MG TAB PO PRN (03:13)
[2017-05-11] MEDS: D5NSS + 20MEQ KCL 1,000 ML IV SCH (05:57)
[2017-05-11] MEDS: PROPRANOLOL HCL 80 MG LA CAP PO SCH ×2 (09:00→22:22)
[2017-05-11 09:13] LABS: BASO % 0.2 %; BASO ABS # 0.01 K/uL (0-0.2); EOS % 0.3 %; EOS ABS # 0.02 K/uL (0-0.5); HEMATOCRIT 38.8 % (42-52); HEMOGLOBIN 13.2 g/dL (14.0-18.0); IG# 0.01 K/uL (0.00-0.02); LYMPH % 12.2 %; LYMPH ABS # 0.72 K/uL (1.2-3.4); MEAN CELL VOLUME 92.4 fL (80-100); MEAN CORPUSCULAR HEMOGLOBIN 31.4 pg (25-34); MEAN PLATELET VOLUME 8.7 fL (7.4-10.4); MONO % 7.3 %; MONO ABS # 0.43 K/uL (0.11-0.59); NEUT % 79.8 %; PLATELET COUNT 124 K/uL (130-400); RED CELL DISTRIBUTION WIDTH CV 13.6 % (11.5-14.5); RED CELL DISTRIBUTION WIDTH SD 45.9 fL (36.4-46.3); WHITE BLOOD COUNT 5.89 K/uL (4.8-10.8)
--- NOTE | 2017-05-11 09:24 | Neurology Consultation ---
Neurology Consultation Date of Consultation: May 11, 2017. Attending Physician: Corby Renteria D.O. Primary Care Physician: Jose Juan Brady M.D. Reason for Consultation: Consultation for altered mental status in the setting of epilepsy History of Present Illness Source: patient, clinic records, hospital records This is a 51-year-old male who is well-known to the neurology service. Follows with Dr. Hernandez and epileptic neurologist at [place] for intractable generalized epilepsy. Does have cognitive deficits and cerebral palsy at baseline. 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 Patient presents with symptoms of nausea and vomiting with change in mental status. Possible pneumonia or aspiration pneumonitis on CT of the chest. Was treated for influenza 2 weeks ago and continues to have a cough. Caregivers deny any recent fevers. No reported changes in seizures or epilepsy. Review of the outpatient chart it does not look like any of his epileptic medications were recently changed. Currently the patient is on Onfi, felbamate, gabapentin, Vimpat and Lamictal In the past the patient has been on Keppra which caused severe irritability and aggression, Topamax, Depakote caused worsening tremors, Tegretol and Carbatrol which did not help, phenobarbital History is limited from the patient this morning as he is extremely tired and difficult to wake up and interact. The patient denies any current pain, nausea , or vomiting. Past Medical/Surgical History Medical Problems: (1) Abdominal pain Status: Acute (2) Acute electrocardiogram changes Status: Acute (3) Altered mental status Status: Acute (4) Change in mental status Status: Acute (5) Change in mental status Status: Acute (6) Closed head injury Status: Acute (7) Closed head injury Status: Acute (8) Closed head injury Status: Acute (9) Closed head injury Status: Acute (10) Contusion of lower back Status: Acute (11) Contusion of occipital region of scalp Status: Acute (12) Degenerative arthritis of cervical spine Status: Acute (13) Sjskshnptm-[id number] (DTP) vaccination Status: Acute (14) Fall Status: Acute (15) Fall Status: Acute (16) Fall Status: Acute (17) Fall Status: Acute (18) Fall Status: Acute (19) Fall Status: Acute (20) Fall Status: Acute (21) Fall Status: Acute (22) Fall Status: Acute (23) Fall Status: Acute (24) Fall from bed Status: Acute (25) Fever of unknown origin Status: Acute (26) Head injury, closed Status: Acute (27) Hemorrhoids Status: Acute (28) Hypokalemia Status: Acute (29) Influenza-like symptoms Status: Acute (30) Laceration of scalp Status: Acute (31) Leukocytosis Status: Acute (32) Medication reaction Status: Acute (33) Muscle tremor Status: Acute (34) Pneumonia Status: Acute (35) Pneumonia Status: Acute (36) Seizure Status: Acute (37) Seizure Status: Acute (38) Weakness Status: Acute (39) Weakness Status: Acute Family History Noncontributory Social History Patient lives in a assisted. Normally independent his activities of daily living. At baseline able to verbally communicate. Smoking Status: Former smoker Drug Use: none Marital Status: single Housing Status: assisted living Occupation Status: disabled Allergies Coded Allergies: Sulfamethoxazole w/Trimethoprim (Verified Allergy, Unknown, dizziness and increase in tremor, 05/10/17) Grapefruit (Verified Adverse Reaction, Unknown, INTERACTS WITH OTHER MEDS , 05/10/17) Ibuprofen (Verified Adverse Reaction, Unknown, avoids secondary to reactions with other medications, 05/10/17) Levetiracetam (Verified Adverse Reaction, Unknown, AGITATION, 05/10/17) Current Inpatient Medications Current Inpatient Medications Medications (Trade) Dose Ordered Sig/Hugh Route Start Time Stop Time Status Last Admin Dose Admin Ioversol (Optiray 320) 111 ml UD PRN IV 05/10/17 13:45 05/14/17 13:44 Buspirone HCl (BusPAR TAB) 15 mg QAM PO 05/11/17 09:00 06/10/17 08:59 Buspirone HCl (BusPAR TAB) 30 mg HS PO 05/10/17 21:00 06/09/17 20:59 05/10/17 21:50 30 MG Docusate Sodium (coLACE CAP) 100 mg BID PO 05/10/17 21:00 06/09/17 20:59 05/10/17 21:51 100 MG Fluoxetine HCl (Prozac Cap) 20 mg DAILY PO 05/11/17 09:00 06/10/17 08:59 Gabapentin (Neurontin Cap) 100 mg TID PO 05/10/17 21:00 4/7/18 20:59 05/10/17 21:52 100 MG Propranolol HCl (Inderal LA Cap) 80 mg BID PO 05/10/17 21:00 06/09/17 20:59 05/10/17 21:52 80 MG Senna/Docusate Sodium (Senokot S Tab) 1 tab HS PO 05/10/17 21:00 06/09/17 20:59 05/10/17 21:52 1 TAB Miscellaneous Information (Order Awaiting Action) 1 ea QS N/A 05/11/17 00:00 06/10/17 00:00 Lacosamide (Vimpat Tab) 200 mg BID PO 05/10/17 21:00 06/09/17 20:59 05/10/17 21:51 200 MG Miscellaneous Information (Order Awaiting Action) 1 ea QS N/A 05/11/17 18:00 06/10/17 17:59 Pantoprazole Sodium (Protonix Tab) 40 mg QAM PO 05/11/17 09:00 06/10/17 08:59 Miscellaneous Information (Order Awaiting Action) 1 ea QS N/A 05/10/17 18:00 06/09/17 17:59 Acetaminophen (Tylenol Tab) 650 mg Q4H PRN PO 05/10/17 16:00 06/09/17 15:59 05/11/17 03:13 650 MG Al Hydrox/Mg Hydrox/Simethicone (Maalox Max Susp) 15 ml Q4H PRN PO 05/10/17 16:00 06/09/17 15:59 Magnesium Hydroxide (Milk Of Magnesia Susp) 30 ml Q12H PRN PO 05/10/17 16:00 06/09/17 15:59 Ondansetron HCl (Zofran Inj) 4 mg Q6H PRN IV 05/10/17 16:00 06/09/17 15:59 Polyethylene (Miralax Powder Packet) 17 gm DAILY PRN PO 05/10/17 16:00 06/09/17 15:59 Albuterol/ Ipratropium (Duoneb) 3 ml Q6R PRN INH 05/10/17 16:00 06/09/17 15:59 Review of Systems Complete review of systems was limited due to mental status, but otherwise negative except for the above-noted in HPI Physical Exam Vital Signs (Past 24 Hrs): Date Time Temp Pulse Resp B/P (MAP) Pulse Ox O2 Delivery O2 Flow Rate FiO2 05/11/17 08:00 96 Room Air 05/11/17 07:05 36.8 59 18 110/67 (81) 96 05/11/17 04:00 94 Room Air 05/11/17 03:55 36.7 57 20 113/66 (82) 94 Room Air 05/11/17 00:23 92 Room Air 05/10/17 23:30 37.2 61 16 100/57 (71) 92 Room Air 05/10/17 19:50 37.4 74 20 106/71 (83) 92 Room Air 05/10/17 17:16 36.3 71 18 135/84 94 Room Air 05/10/17 16:27 22 127/81 Room Air 05/10/17 15:36 72 20 111/77 95 Room Air 05/10/17 14:32 66 20 124/75 97 Room Air 05/10/17 11:55 55 05/10/17 11:30 36.4 52 20 117/93 93 Room Air Gen.: Patient is lethargic, but wakes to voice and touch. in no acute distress lying in bed Extremities: No gross deformities or rashes noted Neurological examination: Mental status: Patient is lethargic and oriented to person & place. Able to give his own subjective history also difficult and limited by mental status. Attention & concentration decreased for the situation. Remote and recent memory not well testable due to mental status Speech seems fluent without any dysarthria or aphasia noted Cranial nerves: Pupils equally round and reactive to light. Extraocular muscles intact without nystagmus. No facial asymmetry noted. Facial sensation intact. Tongue midline. Good palatal elevation. Good shoulder shrug bilaterally. Hearing grossly intact voice. Strength: Full strength both proximal and distal in all extremities .Tone is normal. Sensation: Grossly intact to light touch in all extremities Deep tendon reflexes: +1 in bilateral biceps and patellar. Coordination: Severe dysmetria and intention tremors with finger to nose testing. Tremors also include head when he is more awake. Station within the bed is normal. Laboratory Results Past 24 Hours: Test 05/10/17 12:15 05/10/17 13:50 05/11/17 05:08 05/11/17 05:11 RDW Standard Deviation 45.9 fL (36.4-46.3) RDW Coefficient of Variation 13.6 % (11.5-14.5) White Blood Count 8.14 K/uL (4.8-10.8) Red Blood Count 4.88 M/uL (4.7-6.1) Hemoglobin 15.4 g/dL (14.0-18.0) Hematocrit 45.4 % (42-52) Mean Corpuscular Volume 93.0 fL (80-100) Mean Corpuscular Hemoglobin 31.6 pg (25-34) Mean Corpuscular Hemoglobin Concent 33.9 g/dl (32-36) Platelet Count 164 K/uL (130-400) Mean Platelet Volume 8.7 fL (7.4-10.4) Neutrophils (%) (Auto) 81.0 % Lymphocytes (%) (Auto) 13.6 % Monocytes (%) (Auto) 5.0 % Eosinophils (%) (Auto) 0.1 % Basophils (%) (Auto) 0.1 % Neutrophils # (Auto) 6.58 K/uL (1.4-6.5) Lymphocytes # (Auto) 1.11 K/uL (1.2-3.4) Monocytes # (Auto) 0.41 K/uL (0.11-0.59) Eosinophils # (Auto) 0.01 K/uL (0-0.5) Basophils # (Auto) 0.01 K/uL (0-0.2) Immature Granulocyte % (Auto) 0.2 % Immature Granulocyte # (Auto) 0.02 K/uL (0.00-0.02) Magnesium Level 2.1 mg/dl (1.8-2.4) Total Bilirubin 0.5 mg/dl (0.2-1) Direct Bilirubin 0.2 mg/dl (0-0.2) Aspartate Amino Transf (AST/SGOT) 15 U/L (15-37) Alanine Aminotransferase (ALT/SGPT) 18 U/L (12-78) Alkaline Phosphatase 133 U/L (45-117) Troponin I < 0.015 ng/ml (0-0.045) Total Protein 7.2 gm/dl (6.4-8.2) Albumin 4.0 gm/dl (3.4-5.0) Lipase 259 U/L (73-393) Hepatitis C Antibody Screen NEG (NEG) Urine Color DK YELLOW Urine Appearance CLEAR (CLEAR) Urine pH 5.5 (4.5-7.5) Urine Specific Penrose 1.038 (1.000-1.030) Urine Protein TRACE (NEG) Urine Glucose (UA) NEG (NEG) Urine Ketones 1+ (NEG) Urine Occult Blood NEG (NEG) Urine Nitrite NEG (NEG) Urine Bilirubin NEG (NEG) Urine Urobilinogen NEG (NEG) Urine Leukocyte Esterase SMALL (NEG) Urine WBC (Auto) 0 /hpf (0-5) Urine RBC (Auto) 0-4 /hpf (0-4) Urine Hyaline Casts (Auto) 0 /lpf (0-5) Urine Epithelial Cells (Auto) 0-5 /lpf (0-5) Urine Bacteria (Auto) NEG (NEG) Ammonia 37.0 umol/L (11-32) Vitamin B12 Level 641 pg/mL (211-911) Test 05/11/17 05:12 05/11/17 08:01 Thyroid Stimulating Hormone (TSH) 0.280 uIu/ml (0.300-4.500) Imaging CT of the head is unremarkable Impression This is a 51-year-old male with known intractable generalized epilepsy with associated symptoms of dysmetria, ataxia, severe action/essential tremors, and myoclonus. At this time it seems that his acute encephalopathy is more likely infectious related with symptoms of nausea vomiting and cough. No signs or symptoms or history consistent with worsening epilepsy at this time. Plan EEG done this morning ordered by myself shows some mild to moderate diffuse nonspecific encephalopathy. No signs of nonconvulsive status or epileptiform discharges. In addition I sent for felbamate and Lamictal levels this morning to make sure that there is no signs of drug toxicity. These could take a few days to come back. At this time I have a low suspicion for drug toxicity considering that it does not appear that his medications have been recently changed. Does not appear that the patient is on his home felbamate. Please contact assisted if needed to make sure that he is put back on his home felbamate I also sent off additional labs this morning for other secondary causes for encephalopathy. TSH was mildly low at 0.28 and ammonia level was mildly elevated at 37 which may potentially contribute to his mental status. B12 level was within normal limits of 641. Thank you for allowing me to participate in this patient's care. If there is any questions or concerns feel free to call/page me. Patient can follow-up in neurology clinic as previously scheduled.
[2017-05-11 09:41] LABS: CALCIUM 8.1 mg/dl (8.5-10.1); CREATININE 0.73 mg/dl (0.60-1.40); POTASSIUM 3.7 mmol/L (3.5-5.1)
[2017-05-11] MEDS: DOCUSATE SODIUM 100 MG CAP PO SCH ×2 (09:59→21:00)
[2017-05-11] MEDS: GABAPENTIN 100 MG CAP PO SCH ×3 (09:59→22:19)
[2017-05-11] MEDS: FLUOXETINE HCL 20 MG CAP PO SCH (09:59)
[2017-05-11] MEDS: PANTOprazole SOD 40 MG TAB PO SCH (09:59)
[2017-05-11] MEDS: BusPIRone 15 MG TAB PO SCH ×2 (09:59→22:19)
--- NOTE | 2017-05-11 09:59 | EEG Procedure Note ---
EEG Procedure Note Date of Service May 11, 2017. Start / End Times Start Time: 7:38 AM End Time: 7:58 AM Referring Physician Cata Gregory History This is a 51-year-old male with known intractable epilepsy. Presents with acute encephalopathy. EEG for further evaluation of possible seizure etiology for worsening encephalopathy. Home Medication List Scheduled Buspirone Hcl (Buspar), 15 MG PO QAM Buspirone Hcl (Buspar), 30 MG PO HS Carbamide Peroxide (Otic) (Carbamide Peroxide), 5-10 DROPS OT BID Docusate Sodium (Colace), 100 MG PO BID Felbamate (Felbamate), 600 MG PO BID Fluoxetine Hcl (Prozac), 20 MG PO DAILY Gabapentin (Neurontin), 100 MG PO TID Lacosamide (Vimpat), 200 MG PO BID Lamotrigine (Lamotrigine Er), 300 MG PO BID Lamotrigine (Lamictal Xr), 50 MG PO BID Multiple Vitamins W/ Minerals (Preservision Areds 2), 2 CAP PO QAM Omeprazole (Prilosec), 20 MG PO QAM Propranolol Hcl (Propranolol Hcl Er), 80 MG PO BID Sennosides-Docusate Sodium (Senokot S), 1 TAB PO HS [Clobazam], 5 MG PO Q12 Scheduled PRN Acetaminophen (Tylenol), 500 MG PO Q4H PRN for Pain Alum & Mag Hydrox-Simethicone (Antacid & Antigas 200-200-20 mg/5Ml), 30 ML PO Q6 PRN for Dextromethorphan Polistirex (Delsym), 10 ML PO Q12 PRN for Cough Loperamide Hcl (Imodium A-D), 4 MG PO UD PRN for Diarrhea Magnesium Hydroxide (Milk Of Magnesia), 30 ML PO UD PRN for Constipation Neomycin/Polymyx/Bacitr (Neosporin), 1 APPL TOP BID PRN for CUTS,SCRAPES, ABRASIONS Inpatient Medication List Current Inpatient Medications Medications (Trade) Dose Ordered Sig/Hugh Route Start Time Stop Time Status Last Admin Dose Admin Ioversol (Optiray 320) 111 ml UD PRN IV 05/10/17 13:45 05/14/17 13:44 Buspirone HCl (BusPAR TAB) 15 mg QAM PO 05/11/17 09:00 06/10/17 08:59 Buspirone HCl (BusPAR TAB) 30 mg HS PO 05/10/17 21:00 06/09/17 20:59 05/10/17 21:50 30 MG Docusate Sodium (coLACE CAP) 100 mg BID PO 05/10/17 21:00 06/09/17 20:59 05/10/17 21:51 100 MG Fluoxetine HCl (Prozac Cap) 20 mg DAILY PO 05/11/17 09:00 06/10/17 08:59 Gabapentin (Neurontin Cap) 100 mg TID PO 05/10/17 21:00 06/09/17 20:59 05/10/17 21:52 100 MG Propranolol HCl (Inderal LA Cap) 80 mg BID PO 05/10/17 21:00 06/09/17 20:59 05/10/17 21:52 80 MG Senna/Docusate Sodium (Senokot S Tab) 1 tab HS PO 05/10/17 21:00 06/09/17 20:59 05/10/17 21:52 1 TAB Miscellaneous Information (Order Awaiting Action) 1 ea QS N/A 05/11/17 00:00 06/10/17 00:00 Lacosamide (Vimpat Tab) 200 mg BID PO 05/10/17 21:00 06/09/17 20:59 05/10/17 21:51 200 MG Miscellaneous Information (Order Awaiting Action) 1 ea QS N/A 05/11/17 18:00 06/10/17 17:59 Pantoprazole Sodium (Protonix Tab) 40 mg QAM PO 05/11/17 09:00 06/10/17 08:59 Miscellaneous Information (Order Awaiting Action) 1 ea QS N/A 05/10/17 18:00 06/09/17 17:59 Acetaminophen (Tylenol Tab) 650 mg Q4H PRN PO 05/10/17 16:00 06/09/17 15:59 05/11/17 03:13 650 MG Al Hydrox/Mg Hydrox/Simethicone (Maalox Max Susp) 15 ml Q4H PRN PO 05/10/17 16:00 06/09/17 15:59 Magnesium Hydroxide (Milk Of Magnesia Susp) 30 ml Q12H PRN PO 05/10/17 16:00 06/09/17 15:59 Ondansetron HCl (Zofran Inj) 4 mg Q6H PRN IV 05/10/17 16:00 06/09/17 15:59 Polyethylene (Miralax Powder Packet) 17 gm DAILY PRN PO 05/10/17 16:00 06/09/17 15:59 Albuterol/ Ipratropium (Duoneb) 3 ml Q6R PRN INH 05/10/17 16:00 06/09/17 15:59 Description This is a 21 electrode EEG with a single channel dedicated to limited EKG. The electrodes were placed in accordance with the International 10-20 system. At the start of this recording the patient is in altered mental status. Background is poorly organized with no well-formed anterior to posterior gradient. Background is composed of symmetric moderate amplitude predominantly 6 Hz theta frequencies with intermixed alpha and beta frequencies. Hyperventilation was not done. Photic stimulation at various frequencies did not produce any abnormalities. Sleep was indicated by vertex waves and symmetric sleep spindles. Interpretation This is an abnormal routine EEG secondary to mild to moderate background disorganization and slowing. There was no electrographic seizures or epileptiform discharges. Clinical Correlation This EEG indicates mild to moderate encephalopathy of nonspecific etiology.
[2017-05-11] MEDS: LACOSAMIDE 50 MG TAB PO SCH ×2 (11:07→22:23)
[2017-05-11] MEDS ORDERED: AMPICILLIN/SULBACTAM SOD INJ 3,000 MG in SODIUM CHLORIDE 0.9% 100ML 100 ML IV SCH (11:15)
[2017-05-11] MEDS ORDERED: PIPERACILL/TAZOBAC CONSULT ACTIVE PRN (11:30)
[2017-05-11] MEDS ORDERED: LACTULOSE SYRUP 30 GM/45 ML UDP PO ONE (11:45)
[2017-05-11] MEDS ORDERED: PIPERACILL/TAZOBAC IV 3.375 GM in DEXTROSE 5% 100ML 100 ML IV SCH (12:00)
[2017-05-11] MEDS ORDERED: PIPERACILL/TAZOBAC IV 3.375 GM in DEXTROSE 5% 100ML IV ONE (12:15)
--- NOTE | 2017-05-11 12:42 | Clinical Documentation Query ---
QUERY 1 OF [address] ABDUL, In your clinical opinion is this patient being managed for: ( x ) possible aspiration pneumonia ( ) unresolved pneumonia with failed outpatient treatment ( ) Not Agree ( ) Other explanation of clinical findings (Please Explain) ( ) Unable to determine (Please Define) ( ) Need to Discuss The medical record reflects the following clinical findings, treatment, and risk factors. Clinical Indicators: 51 yo male presenting with altered mental status. Pt has recent history of influenza and pneumonia. Treated with tamiflu and levaquin as an outpatient. Now with vomiting several times daily and poor appetite as well as continued cough. Treatment:IV fluids, IV vancomycin, IV zosyn, tele monitoring Risk Factors: altered mental status, hx mild MR, recent pneumonia, vomiting QUERY 2 OF 2 In your clinical opinion is this patient being managed for: ( x ) severe protein-calorie malnutrition ( ) Not Agree ( ) Other explanation of clinical findings (Please Explain) ( ) Unable to determine (Please Define) ( ) Need to Discuss The medical record reflects the following clinical findings, treatment, and risk factors. Clinical Indicators: Pt with 8.8% wt loss over the past 2 1/2 weeks. Poor oral intake over past several weeks. Treatment:Full liquid diet currently Risk Factors: acute illness over the past 3-4 weeks Severe Malnutrition Criteria: (2 criteria needed) Energy intake: <50% of estimated energy requirement for > 5 days Wt loss: 1-2% in 1 wk, 5% in 1 month, or 7.5% in 3 months Body fat: moderate loss of SQ fat from the orbits, triceps or fat overlying the ribs Muscle mass: moderate muscle wasting at the temples, clavicles, shoulders, interosseous spaces, scapula, thigh, calf Fluid accumulation: moderate to severe localized or generalized edema of the extremities, vulva, scrotum-wt loss may be masked by edema Electrical Foreman strength: measurably decreased per the devices standards Please clarify and document your clinical opinion in the progress notes and discharge summary. Terms such as "probable", "suspected", "likely", "questionable", "possible", or "still to be ruled out" are acceptable. IF IN AGREEMENT, YOU MUST DOCUMENT ABOVE DIAGNOSTIC STATEMENT IN DAILY PROGRESS NOTES AND DISCHARGE SUMMARY. This document is not part of the patient's record. Thank You, Snehal Sarah RN [phone]
[2017-05-11] MEDS: D5W AND NSS 1,000 ML IV SCH (13:17)
--- NOTE | 2017-05-11 14:43 | Progress Note ---
Subjective Date of Service: May 11, 2017. Subjective Pt evaluation today including: conversation w/ patient, physical exam, lab review, review of studies, conversation w/ excellence consultant, review of inpatient medication list Pain: denies pain PO Intake: poor Voiding: no voiding problems patient lethargic, sleeping all morning per RN she was able to get him awake to take some medications, did not eat much later in the morning he woke up for me after tactile and verbal stimulation would open eyes but not all the way responded appropriately, he remembers that was treated for pneumonia recently he can recall that he was vomiting and coughing a lot recently poor oral intake I reviewed labs from admission and today, procalcitonin <0.05, WBC normal, cr at baseline EEG reviewed, diffuse slowing discussed the case with Dr. Crabtree Problem List Medical Problems: (1) Abdominal pain Status: Acute (2) Acute electrocardiogram changes Status: Acute (3) Altered mental status Status: Acute (4) Change in mental status Status: Acute (5) Change in mental status Status: Acute (6) Closed head injury Status: Acute (7) Closed head injury Status: Acute (8) Closed head injury Status: Acute (9) Closed head injury Status: Acute (10) Contusion of lower back Status: Acute (11) Contusion of occipital region of scalp Status: Acute (12) Degenerative arthritis of cervical spine Status: Acute (13) Pfajjmmyfc-mtxxwsg-unwvpzxgm (DTP) vaccination Status: Acute (14) Fall Status: Acute (15) Fall Status: Acute (16) Fall Status: Acute (17) Fall Status: Acute (18) Fall Status: Acute (19) Fall Status: Acute (20) Fall Status: Acute (21) Fall Status: Acute (22) Fall Status: Acute (23) Fall Status: Acute (24) Fall from bed Status: Acute (25) Fever of unknown origin Status: Acute (26) Head injury, closed Status: Acute (27) Hemorrhoids Status: Acute (28) Hypokalemia Status: Acute (29) Influenza-like symptoms Status: Acute (30) Laceration of scalp Status: Acute (31) Leukocytosis Status: Acute (32) Medication reaction Status: Acute (33) Muscle tremor Status: Acute (34) Pneumonia Status: Acute (35) Pneumonia Status: Acute (36) Seizure Status: Acute (37) Seizure Status: Acute (38) Weakness Status: Acute (39) Weakness Status: Acute Review of Systems Constitutional: + weakness, + fatigue Respiratory: + cough Neurologic: + weakness, + problem reported (lethargic) All Other Systems: Reviewed and Negative Medications Current Inpatient Medications Medications (Trade) Dose Ordered Sig/Hugh Route Start Time Stop Time Status Last Admin Dose Admin Ioversol (Optiray 320) 111 ml UD PRN IV 05/10/17 13:45 05/14/17 13:44 Buspirone HCl (BusPAR TAB) 15 mg QAM PO 05/11/17 09:00 06/10/17 08:59 05/11/17 09:59 15 MG Buspirone HCl (BusPAR TAB) 30 mg HS PO 05/10/17 21:00 06/09/17 20:59 05/10/17 21:50 30 MG Docusate Sodium (coLACE CAP) 100 mg BID PO 05/10/17 21:00 06/09/17 20:59 05/11/17 09:59 100 MG Fluoxetine HCl (Prozac Cap) 20 mg DAILY PO 05/11/17 09:00 06/10/17 08:59 05/11/17 09:59 20 MG Gabapentin (Neurontin Cap) 100 mg TID PO 05/10/17 21:00 06/09/17 20:59 05/11/17 13:18 100 MG Propranolol HCl (Inderal LA Cap) 80 mg BID PO 05/10/17 21:00 06/09/17 20:59 05/10/17 21:52 80 MG Senna/Docusate Sodium (Senokot S Tab) 1 tab HS PO 05/10/17 21:00 06/09/17 20:59 05/10/17 21:52 1 TAB Miscellaneous Information (Order Awaiting Action) 1 ea QS N/A 05/11/17 00:00 06/10/17 00:00 Lacosamide (Vimpat Tab) 200 mg BID PO 05/10/17 21:00 06/09/17 20:59 05/11/17 11:07 200 MG Miscellaneous Information (Order Awaiting Action) 1 ea QS N/A 05/11/17 18:00 06/10/17 17:59 Pantoprazole Sodium (Protonix Tab) 40 mg QAM PO 05/11/17 09:00 06/10/17 08:59 05/11/17 09:59 40 MG Miscellaneous Information (Order Awaiting Action) 1 ea QS N/A 05/10/17 18:00 06/09/17 17:59 Acetaminophen (Tylenol Tab) 650 mg Q4H PRN PO 05/10/17 16:00 06/09/17 15:59 05/11/17 03:13 650 MG Al Hydrox/Mg Hydrox/Simethicone (Maalox Max Susp) 15 ml Q4H PRN PO 05/10/17 16:00 06/09/17 15:59 Magnesium Hydroxide (Milk Of Magnesia Susp) 30 ml Q12H PRN PO 05/10/17 16:00 06/09/17 15:59 Ondansetron HCl (Zofran Inj) 4 mg Q6H PRN IV 05/10/17 16:00 06/09/17 15:59 Polyethylene (Miralax Powder Packet) 17 gm DAILY PRN PO 05/10/17 16:00 06/09/17 15:59 Albuterol/ Ipratropium (Duoneb) 3 ml Q6R PRN INH 05/10/17 16:00 06/09/17 15:59 Miscellaneous Information (Consult) 1 ea UD PRN N/A 05/11/17 11:30 06/10/17 11:29 Dextrose/Sodium Chloride 1,000 ml @ 75 mls/hr [id number] IV 05/11/17 11:30 06/10/17 11:29 05/11/17 13:17 75 MLS/HR Piperacillin Sod/ Tazobactam Sod 3.375 gm/Dextrose 115 ml @ 28.75 mls/ hr Q8H IV 05/11/17 18:00 05/18/17 17:59 Objective Vital Signs Date Time Temp Pulse Resp B/P (MAP) Pulse Ox O2 Delivery O2 Flow Rate FiO2 05/11/17 12:00 Room Air 05/11/17 11:10 36.8 53 18 111/70 (84) 96 05/11/17 08:00 96 Room Air 05/11/17 07:05 36.8 59 18 110/67 (81) 96 05/11/17 04:00 94 Room Air 05/11/17 03:55 36.7 57 20 113/66 (82) 94 Room Air 05/11/17 00:23 92 Room Air 05/10/17 23:30 37.2 61 16 100/57 (71) 92 Room Air 05/10/17 19:50 37.4 74 20 106/71 (83) 92 Room Air 05/10/17 17:16 36.3 71 18 135/84 94 Room Air 05/10/17 16:27 22 127/81 Room Air 05/10/17 15:36 72 20 111/77 95 Room Air 05/10/17 14:32 66 20 124/75 97 Room Air Physical Exam General Appearance: WD/WN, no apparent distress Eyes: normal inspection, EOMI, sclerae normal ENT: normal ENT inspection, hearing grossly normal, pharynx normal Neck: supple, no adenopathy, no JVD, trachea midline Respiratory/Chest: chest non-tender, lungs clear, normal breath sounds, no respiratory distress, no accessory muscle use Cardiovascular: regular rate, rhythm, no edema, no gallop, no JVD, no murmur Abdomen: normal bowel sounds, non tender, soft, no organomegaly Extremities: non-tender, normal inspection, no pedal edema, no calf tenderness , normal capillary refill, pelvis stable Neurologic/Psychiatric: field crew chief II-XII nml as tested, + motor weakness, + depressed affect, + pertinent finding (lethargic, able to follow simple commands , appropriate responses) Skin: normal color, warm/dry, no rash Laboratory Results Last 24 Hours Test 05/11/17 05:08 05/11/17 05:11 05/11/17 05:12 05/11/17 08:52 Ammonia 37.0 umol/L Vitamin B12 Level 641 pg/mL Thyroid Stimulating Hormone (TSH) 0.280 uIu/ml White Blood Count 5.89 K/uL Red Blood Count 4.20 M/uL Hemoglobin 13.2 g/dL Hematocrit 38.8 % Mean Corpuscular Volume 92.4 fL Mean Corpuscular Hemoglobin 31.4 pg Mean Corpuscular Hemoglobin Concent 34.0 g/dl Platelet Count 124 K/uL Mean Platelet Volume 8.7 fL Neutrophils (%) (Auto) 79.8 % Lymphocytes (%) (Auto) 12.2 % Monocytes (%) (Auto) 7.3 % Eosinophils (%) (Auto) 0.3 % Basophils (%) (Auto) 0.2 % Neutrophils # (Auto) 4.70 K/uL Lymphocytes # (Auto) 0.72 K/uL Monocytes # (Auto) 0.43 K/uL Eosinophils # (Auto) 0.02 K/uL Basophils # (Auto) 0.01 K/uL RDW Standard Deviation 45.9 fL RDW Coefficient of Variation 13.6 % Immature Granulocyte % (Auto) 0.2 % Immature Granulocyte # (Auto) 0.01 K/uL Sodium Level 142 mmol/L Potassium Level 3.7 mmol/L Chloride Level 110 mmol/L Carbon Dioxide Level 30 mmol/L Anion Gap 2.0 mmol/L Blood Urea Nitrogen 7 mg/dl Creatinine 0.73 mg/dl Est Creatinine Clear Calc Drug Dose 127.7 ml/min Estimated GFR () 123.6 Estimated GFR (Non- 106.6 BUN/Creatinine Ratio 9.5 Random Glucose 121 mg/dl Calcium Level 8.1 mg/dl Procalcitonin < 0.05 ng/ml Assessment and Plan 51 y/o M Hx severe epilepsy, chronic ataxia, intellectual impairment, TBA. The pt is brought to the ER by a caregiver at his care home for altered mentation, nausea, vomiting and a cough. He normally maintains a degree of independence, however, he is currently unable to assist in his own ADLs or carry a conversation. His mental status has apparently deteriorated over the past week. Intermittent nausea and vomiting are reported over the past few days. 2 weeks ago, the pt was treated for influenza and he was then given Levaquin one week ago for presumed pneumonia. He continues to exhibit a cough. He cannot contribute to the HPI. His clock and watch hands dipper states that he has not had any fevers. A CT of the abdomen was obtained which did not elucidate any acute abnormalities. There was mucous plugging and bronchial wall thickening reported in the RLL. Aside form his acute issues, his clock and watch hands dipper reports a poor appetite and weight loss of over 20lbs during the past month. - Altered mental status, suspect metabolic encephalopathy could be either due to infection (pneumonia), dehydration, mildly elevated ammonia level could be toxic if anti-epileptic drug levels too high, will take days to return for now, maintain hydration with IV fluids, treat pneumonia with Zosyn IV, continue seizure medications will give lactulose x 1 dose, repeat Ammonia in the AM check T3/T4 levels in the AM - Possible aspiration pneumonia recent h/o vomiting a lot and then coughing bibasilar changes on CT chest completed a course of Levaquin outpatient, will treat here with Zosyn procalcitonin <0.05, no evidence of sepsis - nausea and vomiting: no vomiting since admission, will monitor - severe protein-calorie malnutrition: weight loss, low protein/albumin, vomiting as outpatient provide Boost if he can take PO - seizure disorder: continue Lamictal 350mg BID, Vimpat, Felbamate can have medications from care home since non-formulary here Full code - SCDs due to fall/trauma risk
[2017-05-11] MEDS: PIPERACILL/TAZOBAC IV 3.375 GM in DEXTROSE 5% 100ML IV SCH (18:33)
[2017-05-11] MEDS: DOCUSATE SODIUM/SENNA 50/8.6MG TAB PO SCH (21:00)
[2017-05-11] MEDS: FELBAMATE 600 MG PO SCH (22:21)
[2017-05-12] VITALS (10 sets, daily range): BP systolic 103–123; BP diastolic 63–76; PULSE 51–64; TEMP 36.5–36.9; O2SAT 92–96
[2017-05-12] MEDS: D5W AND NSS 1,000 ML IV SCH ×2 (00:50→15:28)
[2017-05-12] MEDS: ACETAMINOPHEN 325 MG TAB PO PRN (01:02)
[2017-05-12] MEDS: PIPERACILL/TAZOBAC IV 3.375 GM in DEXTROSE 5% 100ML IV SCH ×2 (02:06→10:16)
[2017-05-12 07:09] LABS: BASO % 0.1 %; BASO ABS # 0.01 K/uL (0-0.2); EOS % 0.6 %; EOS ABS # 0.05 K/uL (0-0.5); HEMATOCRIT 38.9 % (42-52); HEMOGLOBIN 13.3 g/dL (14.0-18.0); IG# 0.02 K/uL (0.00-0.02); LYMPH % 15.4 %; MEAN CELL VOLUME 92.2 fL (80-100); MEAN CORPUSCULAR HEMOGLOBIN 31.5 pg (25-34); MEAN CORPUSCULAR HGB CONC 34.2 g/dl (32-36); MEAN PLATELET VOLUME 8.4 fL (7.4-10.4); NEUT % 74.6 %; NEUT ABS # 5.81 K/uL (1.4-6.5); PLATELET COUNT 124 K/uL (130-400); RED CELL DISTRIBUTION WIDTH CV 13.5 % (11.5-14.5); RED CELL DISTRIBUTION WIDTH SD 45.4 fL (36.4-46.3); WHITE BLOOD COUNT 7.79 K/uL (4.8-10.8)
[2017-05-12 07:43] LABS: CALCIUM 8.2 mg/dl (8.5-10.1); CREATININE 0.72 mg/dl (0.60-1.40); POTASSIUM 3.6 mmol/L (3.5-5.1)
[2017-05-12] MEDS: PROPRANOLOL HCL 80 MG LA CAP PO SCH ×2 (08:24→21:38)
[2017-05-12] MEDS: LACTULOSE SYRUP 30 GM/45 ML UDP PO SCH ×3 (08:30→21:35)
[2017-05-12] MEDS: FELBAMATE 600 MG PO SCH ×2 (08:31→21:36)
[2017-05-12] MEDS: LACOSAMIDE 50 MG TAB PO SCH ×2 (08:31→21:37)
[2017-05-12] MEDS: GABAPENTIN 100 MG CAP PO SCH ×3 (08:32→21:39)
[2017-05-12] MEDS: BusPIRone 15 MG TAB PO SCH ×2 (08:32→21:39)
[2017-05-12] MEDS: FLUOXETINE HCL 20 MG CAP PO SCH (08:32)
[2017-05-12] MEDS: DOCUSATE SODIUM 100 MG CAP PO SCH ×2 (08:32→21:37)
[2017-05-12] MEDS: PANTOprazole SOD 40 MG TAB PO SCH (08:33)
--- NOTE | 2017-05-12 12:47 | Progress Note ---
Subjective Date of Service: May 12, 2017. Subjective Pt evaluation today including: conversation w/ patient, physical exam, lab review, review of inpatient medication list Pain: denies pain PO Intake: poor, very lethargic Voiding: no voiding problems patient still lethargic, will wake long enough to take medications, not eating well no vomiting reported ammonia higher today at 51, all other labs normal d/w RN about increasing Lactulose to TID to see if mental status improves Problem List Medical Problems: (1) Abdominal pain Status: Acute (2) Acute electrocardiogram changes Status: Acute (3) Altered mental status Status: Acute (4) Change in mental status Status: Acute (5) Change in mental status Status: Acute (6) Closed head injury Status: Acute (7) Closed head injury Status: Acute (8) Closed head injury Status: Acute (9) Closed head injury Status: Acute (10) Contusion of lower back Status: Acute (11) Contusion of occipital region of scalp Status: Acute (12) Degenerative arthritis of cervical spine Status: Acute (13) Mdxeglhsqz-jbdiboj-xuuruwbmi (DTP) vaccination Status: Acute (14) Fall Status: Acute (15) Fall Status: Acute (16) Fall Status: Acute (17) Fall Status: Acute (18) Fall Status: Acute (19) Fall Status: Acute (20) Fall Status: Acute (21) Fall Status: Acute (22) Fall Status: Acute (23) Fall Status: Acute (24) Fall from bed Status: Acute (25) Fever of unknown origin Status: Acute (26) Head injury, closed Status: Acute (27) Hemorrhoids Status: Acute (28) Hypokalemia Status: Acute (29) Influenza-like symptoms Status: Acute (30) Laceration of scalp Status: Acute (31) Leukocytosis Status: Acute (32) Medication reaction Status: Acute (33) Muscle tremor Status: Acute (34) Pneumonia Status: Acute (35) Pneumonia Status: Acute (36) Seizure Status: Acute (37) Seizure Status: Acute (38) Weakness Status: Acute (39) Weakness Status: Acute Review of Systems cannot complete full ROS, denies pain, very lethargic Medications Current Inpatient Medications Medications (Trade) Dose Ordered Sig/Hugh Route Start Time Stop Time Status Last Admin Dose Admin Ioversol (Optiray 320) 111 ml UD PRN IV 05/10/17 13:45 05/14/17 13:44 Buspirone HCl (BusPAR TAB) 15 mg QAM PO 05/11/17 09:00 06/10/17 08:59 05/12/17 08:32 15 MG Buspirone HCl (BusPAR TAB) 30 mg HS PO 05/10/17 21:00 06/09/17 20:59 05/11/17 22:19 30 MG Docusate Sodium (coLACE CAP) 100 mg BID PO 05/10/17 21:00 06/09/17 20:59 05/12/17 08:32 100 MG Fluoxetine HCl (Prozac Cap) 20 mg DAILY PO 05/11/17 09:00 06/10/17 08:59 05/12/17 08:32 20 MG Gabapentin (Neurontin Cap) 100 mg TID PO 05/10/17 21:00 06/09/17 20:59 05/12/17 08:32 100 MG Propranolol HCl (Inderal LA Cap) 80 mg BID PO 05/10/17 21:00 06/09/17 20:59 05/11/17 22:22 80 MG Senna/Docusate Sodium (Senokot S Tab) 1 tab HS PO 05/10/17 21:00 06/09/17 20:59 05/10/17 21:52 1 TAB Lacosamide (Vimpat Tab) 200 mg BID PO 05/10/17 21:00 06/09/17 20:59 05/12/17 08:31 200 MG Miscellaneous Information (Order Awaiting Action) 1 ea QS N/A 05/11/17 18:00 06/10/17 17:59 Pantoprazole Sodium (Protonix Tab) 40 mg QAM PO 05/11/17 09:00 06/10/17 08:59 05/12/17 08:33 40 MG Miscellaneous Information (Order Awaiting Action) 1 ea QS N/A 05/10/17 18:00 06/09/17 17:59 Acetaminophen (Tylenol Tab) 650 mg Q4H PRN PO 05/10/17 16:00 06/09/17 15:59 05/12/17 01:02 650 MG Al Hydrox/Mg Hydrox/Simethicone (Maalox Max Susp) 15 ml Q4H PRN PO 3/8/18 16:00 06/09/17 15:59 Magnesium Hydroxide (Milk Of Magnesia Susp) 30 ml Q12H PRN PO 05/10/17 16:00 06/09/17 15:59 Ondansetron HCl (Zofran Inj) 4 mg Q6H PRN IV 05/10/17 16:00 06/09/17 15:59 05/11/17 17:36 4 MG Polyethylene (Miralax Powder Packet) 17 gm DAILY PRN PO 05/10/17 16:00 06/09/17 15:59 Albuterol/ Ipratropium (Duoneb) 3 ml Q6R PRN INH 05/10/17 16:00 06/09/17 15:59 Miscellaneous Information (Consult) 1 ea UD PRN N/A 05/11/17 11:30 06/10/17 11:29 Dextrose/Sodium Chloride 1,000 ml @ 75 mls/hr [id number] IV 05/11/17 11:30 06/10/17 11:29 05/12/17 00:50 75 MLS/HR Piperacillin Sod/ Tazobactam Sod 3.375 gm/Dextrose 115 ml @ 28.75 mls/ hr Q8H IV 05/11/17 18:00 05/18/17 17:59 05/12/17 10:16 28.75 MLS/HR Felbamate (Felbatol) 600 mg BID PO 05/11/17 21:00 06/10/17 20:59 05/12/17 08:31 600 MG Lactulose (Chronulac Syrup) 30 gm TID PO 05/12/17 09:00 06/11/17 08:59 05/12/17 08:30 30 GM Objective Vital Signs Date Time Temp Pulse Resp B/P (MAP) Pulse Ox O2 Delivery O2 Flow Rate FiO2 05/12/17 12:00 Room Air 05/12/17 11:41 36.5 54 20 113/67 (82) 95 05/12/17 08:00 Room Air 05/12/17 07:51 36.9 51 18 103/66 (78) 94 05/12/17 04:00 94 Room Air 05/12/17 03:40 36.9 61 19 120/70 (87) 94 Room Air 05/12/17 00:00 92 Room Air 05/11/17 23:52 37.6 74 18 121/75 (90) 92 Room Air 05/11/17 20:00 90 Room Air 05/11/17 19:31 37.1 80 21 150/80 (103) 90 Room Air 05/11/17 16:00 Room Air 05/11/17 15:40 36.7 62 16 121/73 (89) 94 Room Air Physical Exam General Appearance: WD/WN, no apparent distress Eyes: normal inspection, EOMI, sclerae normal ENT: normal ENT inspection, hearing grossly normal, pharynx normal Neck: supple, no adenopathy, no JVD, trachea midline Respiratory/Chest: chest non-tender, lungs clear, no respiratory distress, no accessory muscle use, + decreased breath sounds (bases) Cardiovascular: regular rate, rhythm, no edema, no gallop, no JVD, no murmur Abdomen: normal bowel sounds, non tender, soft, no organomegaly Extremities: normal range of motion, non-tender, normal inspection, no pedal edema, no calf tenderness, pelvis stable Neurologic/Psychiatric: penciller II-XII nml as tested, oriented x 3, + motor weakness, + depressed affect, + pertinent finding (very lethargic) Skin: normal color, warm/dry, no rash Laboratory Results Last 24 Hours Test 05/12/17 06:56 White Blood Count 7.79 K/uL Red Blood Count 4.22 M/uL Hemoglobin 13.3 g/dL Hematocrit 38.9 % Mean Corpuscular Volume 92.2 fL Mean Corpuscular Hemoglobin 31.5 pg Mean Corpuscular Hemoglobin Concent 34.2 g/dl Platelet Count 124 K/uL Mean Platelet Volume 8.4 fL Neutrophils (%) (Auto) 74.6 % Lymphocytes (%) (Auto) 15.4 % Monocytes (%) (Auto) 9.0 % Eosinophils (%) (Auto) 0.6 % Basophils (%) (Auto) 0.1 % Neutrophils # (Auto) 5.81 K/uL Lymphocytes # (Auto) 1.20 K/uL Monocytes # (Auto) 0.70 K/uL Eosinophils # (Auto) 0.05 K/uL Basophils # (Auto) 0.01 K/uL RDW Standard Deviation 45.4 fL RDW Coefficient of Variation 13.5 % Immature Granulocyte % (Auto) 0.3 % Immature Granulocyte # (Auto) 0.02 K/uL Sodium Level 142 mmol/L Potassium Level 3.6 mmol/L Chloride Level 109 mmol/L Carbon Dioxide Level 28 mmol/L Anion Gap 5.0 mmol/L Blood Urea Nitrogen 5 mg/dl Creatinine 0.72 mg/dl Est Creatinine Clear Calc Drug Dose 130.9 ml/min Estimated GFR () 124.3 Estimated GFR (Non- 107.3 BUN/Creatinine Ratio 7.2 Random Glucose 103 mg/dl Calcium Level 8.2 mg/dl Magnesium Level 1.8 mg/dl Ammonia 51.0 umol/L Free Thyroxine 0.93 ng/dl Free Triiodothyronine 2.68 pg/ml Assessment and Plan 51 y/o M Hx severe epilepsy, chronic ataxia, intellectual impairment, TBA. The pt is brought to the ER by a caregiver at his long-term for altered mentation, nausea, vomiting and a cough. He normally maintains a degree of independence, however, he is currently unable to assist in his own ADLs or carry a conversation. His mental status has apparently deteriorated over the past week. Intermittent nausea and vomiting are reported over the past few days. 2 weeks ago, the pt was treated for influenza and he was then given Levaquin one week ago for presumed pneumonia. He continues to exhibit a cough. He cannot contribute to the HPI. His guide rail cleaner states that he has not had any fevers. A CT of the abdomen was obtained which did not elucidate any acute abnormalities. There was mucous plugging and bronchial wall thickening reported in the RLL. Aside form his acute issues, his guide rail cleaner reports a poor appetite and weight loss of over 20lbs during the past month. - Altered mental status, suspect metabolic encephalopathy could be either due to infection (pneumonia), dehydration, mildly elevated ammonia level not improving on antibiotics or IV fluids so doubt it was infection or dehydration, stop Zosyn today (afebrile, WBC normal entire admission) could be toxic if anti-epileptic drug levels too high, will take days to return, follow up on results for now, maintain hydration with IV fluids, continue seizure medications ammonia high at 51 today, will treat with Lactulose TID, repeat ammonia tomorrow, watch for clinical response - Possible aspiration pneumonia recent h/o vomiting a lot and then coughing bibasilar changes on CT chest completed a course of Levaquin outpatient procalcitonin <0.05, no evidence of sepsis, afebrile, WBC normal for days no clinical improvement in mental status on Zosyn, will stop antibiotics today - nausea and vomiting: no vomiting since admission, will monitor - severe protein-calorie malnutrition: weight loss, low protein/albumin, vomiting as outpatient provide Boost if he can take PO - seizure disorder: continue Lamictal 350mg BID, Vimpat, Felbamate can have medications from long-term since non-formulary here keep on tele today Full code - SCDs due to fall/trauma risk
[2017-05-12] MEDS: DOCUSATE SODIUM/SENNA 50/8.6MG TAB PO SCH (21:38)
[2017-05-13] VITALS (8 sets, daily range): BP systolic 100–141; BP diastolic 41–85; PULSE 56–74; TEMP 36.5–37; O2SAT 93–96
[2017-05-13] MEDS: D5W AND NSS 1,000 ML IV SCH (03:30)
[2017-05-13 07:40] LABS: EOS % 0.7 %; EOS ABS # 0.03 K/uL (0-0.5); HEMATOCRIT 37.8 % (42-52); HEMOGLOBIN 12.8 g/dL (14.0-18.0); IG# 0.01 K/uL (0.00-0.02); LYMPH % 24.4 %; LYMPH ABS # 1.03 K/uL (1.2-3.4); MEAN CELL VOLUME 92.9 fL (80-100); MEAN CORPUSCULAR HEMOGLOBIN 31.4 pg (25-34); MEAN CORPUSCULAR HGB CONC 33.9 g/dl (32-36); MEAN PLATELET VOLUME 8.6 fL (7.4-10.4); MONO % 10.2 %; MONO ABS # 0.43 K/uL (0.11-0.59); NEUT % 64.5 %; NEUT ABS # 2.72 K/uL (1.4-6.5); PLATELET COUNT 117 K/uL (130-400); RED CELL DISTRIBUTION WIDTH CV 13.5 % (11.5-14.5); RED CELL DISTRIBUTION WIDTH SD 46.1 fL (36.4-46.3); WHITE BLOOD COUNT 4.22 K/uL (4.8-10.8)
[2017-05-13] MEDS: PROPRANOLOL HCL 80 MG LA CAP PO SCH (08:20)
[2017-05-13] MEDS: FELBAMATE 600 MG PO SCH ×2 (08:22→21:34)
[2017-05-13] MEDS: GABAPENTIN 100 MG CAP PO SCH ×3 (08:23→21:31)
[2017-05-13] MEDS: PANTOprazole SOD 40 MG TAB PO SCH (08:28)
[2017-05-13] MEDS: DOCUSATE SODIUM 100 MG CAP PO SCH (08:28)
[2017-05-13] MEDS: BusPIRone 15 MG TAB PO SCH ×2 (08:29→21:29)
[2017-05-13] MEDS: LACOSAMIDE 50 MG TAB PO SCH ×2 (08:29→21:31)
[2017-05-13] MEDS: LACTULOSE SYRUP 30 GM/45 ML UDP PO SCH (08:30)
[2017-05-13] MEDS: FLUOXETINE HCL 20 MG CAP PO SCH (08:31)
[2017-05-13 08:33] LABS: CALCIUM 8.2 mg/dl (8.5-10.1); CREATININE 0.72 mg/dl (0.60-1.40); POTASSIUM 3.6 mmol/L (3.5-5.1)
[2017-05-13 08:34] LABS: PHOSPHORUS 2.5 mg/dl (2.5-4.9)
[2017-05-13] MEDS ORDERED: LACTULOSE SYRUP 30 GM/45 ML UDP PO PRN (09:45)
--- NOTE | 2017-05-13 11:09 | DIAGNOSTIC IMAGING REPORT ---
BILIARY ULTRASOUND CLINICAL HISTORY: Elevated ammonia COMPARISON STUDY: 11/10/2007, CT scan dated 05/10/2017 FINDINGS: The examination was limited from a technical standpoint secondary to patient's inability to cooperate and extensive bowel gas. The pancreas was poorly visualized. No hepatic masses are delineated. The gallbladder surgically absent. There is no ductal dilatation. The common bile duct measures 6 mm. There is no right-sided hydronephrosis. IMPRESSION: 1. Surgically absent gallbladder 2. No evidence of ductal dilatation. 3. No hepatic masses are visualized ultrasonographically Electronically signed by: Terrence Liang M.D. 05/13/2017 11:08 AM Dictated Date/Time: 05/13/2017 11:06 AM
--- NOTE | 2017-05-13 13:44 | Progress Note ---
Subjective Date of Service: May 13, 2017. Subjective Pt evaluation today including: conversation w/ patient, conversation w/ family (mother), physical exam, lab review, review of inpatient medication list Pain: no pain PO Intake: improving Voiding: childs catheter in place patient feeling better, more awake, responding appropriately moved bowels 6 times overnight in response to the lactulose ammonia down to normal level today check liver US: normal, no lesions, normal biliary ducts updated patient's mother and [facility] [facility] residents at the bedside Problem List Medical Problems: (1) Abdominal pain Status: Acute (2) Acute electrocardiogram changes Status: Acute (3) Altered mental status Status: Acute (4) Change in mental status Status: Acute (5) Change in mental status Status: Acute (6) Closed head injury Status: Acute (7) Closed head injury Status: Acute (8) Closed head injury Status: Acute (9) Closed head injury Status: Acute (10) Contusion of lower back Status: Acute (11) Contusion of occipital region of scalp Status: Acute (12) Degenerative arthritis of cervical spine Status: Acute (13) Sfquqnmnlj-jaaqavn-rjzpatosp (DTP) vaccination Status: Acute (14) Fall Status: Acute (15) Fall Status: Acute (16) Fall Status: Acute (17) Fall Status: Acute (18) Fall Status: Acute (19) Fall Status: Acute (20) Fall Status: Acute (21) Fall Status: Acute (22) Fall Status: Acute (23) Fall Status: Acute (24) Fall from bed Status: Acute (25) Fever of unknown origin Status: Acute (26) Head injury, closed Status: Acute (27) Hemorrhoids Status: Acute (28) Hypokalemia Status: Acute (29) Influenza-like symptoms Status: Acute (30) Laceration of scalp Status: Acute (31) Leukocytosis Status: Acute (32) Medication reaction Status: Acute (33) Muscle tremor Status: Acute (34) Pneumonia Status: Acute (35) Pneumonia Status: Acute (36) Seizure Status: Acute (37) Seizure Status: Acute (38) Weakness Status: Acute (39) Weakness Status: Acute Review of Systems Constitutional: + fatigue (still more tired than baseline) All Other Systems: Reviewed and Negative Medications Current Inpatient Medications Medications (Trade) Dose Ordered Sig/Hugh Route Start Time Stop Time Status Last Admin Dose Admin Ioversol (Optiray 320) 111 ml UD PRN IV 3/8/18 13:45 05/14/17 13:44 Buspirone HCl (BusPAR TAB) 15 mg QAM PO 05/11/17 09:00 06/10/17 08:59 05/13/17 08:29 15 MG Buspirone HCl (BusPAR TAB) 30 mg HS PO 05/10/17 21:00 06/09/17 20:59 05/12/17 21:39 30 MG Fluoxetine HCl (Prozac Cap) 20 mg DAILY PO 05/11/17 09:00 06/10/17 08:59 05/13/17 08:31 20 MG Gabapentin (Neurontin Cap) 100 mg TID PO 05/10/17 21:00 06/09/17 20:59 05/13/17 08:23 100 MG Lacosamide (Vimpat Tab) 200 mg BID PO 05/10/17 21:00 06/09/17 20:59 05/13/17 08:29 200 MG Pantoprazole Sodium (Protonix Tab) 40 mg QAM PO 05/11/17 09:00 06/10/17 08:59 05/13/17 08:28 40 MG Miscellaneous Information (Order Awaiting Action) 1 ea QS N/A 05/10/17 18:00 06/09/17 17:59 Acetaminophen (Tylenol Tab) 650 mg Q4H PRN PO 05/10/17 16:00 06/09/17 15:59 05/12/17 01:02 650 MG Al Hydrox/Mg Hydrox/Simethicone (Maalox Max Susp) 15 ml Q4H PRN PO 05/10/17 16:00 06/09/17 15:59 Magnesium Hydroxide (Milk Of Magnesia Susp) 30 ml Q12H PRN PO 05/10/17 16:00 06/09/17 15:59 Ondansetron HCl (Zofran Inj) 4 mg Q6H PRN IV 05/10/17 16:00 06/09/17 15:59 05/11/17 17:36 4 MG Polyethylene (Miralax Powder Packet) 17 gm DAILY PRN PO 05/10/17 16:00 06/09/17 15:59 Albuterol/ Ipratropium (Duoneb) 3 ml Q6R PRN INH 05/10/17 16:00 06/09/17 15:59 Felbamate (Felbatol) 600 mg BID PO 05/11/17 21:00 06/10/17 20:59 05/13/17 08:22 600 MG Lamotrigine (Lamictal Tab) 350 mg BID PO 05/12/17 21:00 06/11/17 20:59 05/13/17 08:23 350 MG Lactulose (Chronulac Syrup) 30 gm BID17 PRN PO 05/13/17 09:45 06/12/17 09:44 Objective Vital Signs Date Time Temp Pulse Resp B/P (MAP) Pulse Ox O2 Delivery O2 Flow Rate FiO2 05/13/17 11:45 36.7 59 16 139/74 (95) 93 05/13/17 08:00 Room Air 05/13/17 07:54 37.0 62 18 129/84 (99) 93 05/13/17 04:00 94 Room Air 05/13/17 03:09 37.0 74 20 124/73 (90) 94 Room Air 05/12/17 23:59 94 Room Air 05/12/17 23:43 36.8 56 17 123/76 (92) 94 Room Air 05/12/17 20:00 95 Room Air 05/12/17 18:58 36.8 61 22 109/63 (78) 95 Room Air 05/12/17 16:21 36.5 64 22 107/69 (82) 96 Room Air 05/12/17 16:00 Room Air Physical Exam General Appearance: WD/WN, no apparent distress Eyes: normal inspection, EOMI, sclerae normal ENT: normal ENT inspection, hearing grossly normal, pharynx normal Neck: supple, no adenopathy, no JVD, trachea midline Respiratory/Chest: chest non-tender, lungs clear, normal breath sounds, no respiratory distress, no accessory muscle use Cardiovascular: regular rate, rhythm, no edema, no gallop, no JVD, no murmur Abdomen: normal bowel sounds, non tender, soft, no organomegaly Extremities: normal range of motion, non-tender, normal inspection, no pedal edema, no calf tenderness, pelvis stable 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, no motor/sensory deficits, normal mood/affect, oriented x 3, + pertinent finding (still lethargic, but keeping eyes open spontaneously, talking clearly, making jokes) Skin: normal color, warm/dry, no rash Laboratory Results Last 24 Hours Test 05/13/17 07:28 White Blood Count 4.22 K/uL Red Blood Count 4.07 M/uL Hemoglobin 12.8 g/dL Hematocrit 37.8 % Mean Corpuscular Volume 92.9 fL Mean Corpuscular Hemoglobin 31.4 pg Mean Corpuscular Hemoglobin Concent 33.9 g/dl Platelet Count 117 K/uL Mean Platelet Volume 8.6 fL Neutrophils (%) (Auto) 64.5 % Lymphocytes (%) (Auto) 24.4 % Monocytes (%) (Auto) 10.2 % Eosinophils (%) (Auto) 0.7 % Basophils (%) (Auto) 0.0 % Neutrophils # (Auto) 2.72 K/uL Lymphocytes # (Auto) 1.03 K/uL Monocytes # (Auto) 0.43 K/uL Eosinophils # (Auto) 0.03 K/uL Basophils # (Auto) 0.00 K/uL RDW Standard Deviation 46.1 fL RDW Coefficient of Variation 13.5 % Immature Granulocyte % (Auto) 0.2 % Immature Granulocyte # (Auto) 0.01 K/uL Sodium Level 143 mmol/L Potassium Level 3.6 mmol/L Chloride Level 111 mmol/L Carbon Dioxide Level 26 mmol/L Anion Gap 6.0 mmol/L Blood Urea Nitrogen 6 mg/dl Creatinine 0.72 mg/dl Est Creatinine Clear Calc Drug Dose 131.4 ml/min Estimated GFR () 124.3 Estimated GFR (Non- 107.3 BUN/Creatinine Ratio 8.4 Random Glucose 98 mg/dl Calcium Level 8.2 mg/dl Phosphorus Level 2.5 mg/dl Magnesium Level 1.8 mg/dl Ammonia 32.0 umol/L Assessment and Plan 51 y/o M Hx severe epilepsy, chronic ataxia, intellectual impairment, TBA. The pt is brought to the ER by a caregiver at his [place] [facility] for altered mentation, nausea, vomiting and a cough. He normally maintains a degree of independence, however, he is currently unable to assist in his own ADLs or carry a conversation. His mental status has apparently deteriorated over the past week. Intermittent nausea and vomiting are reported over the past few days. 2 weeks ago, the pt was treated for influenza and he was then given Levaquin one week ago for presumed pneumonia. He continues to exhibit a cough. He cannot contribute to the HPI. His elevator service technician states that he has not had any fevers. A CT of the abdomen was obtained which did not elucidate any acute abnormalities. There was mucous plugging and bronchial wall thickening reported in the RLL. Aside form his acute issues, his elevator service technician reports a poor appetite and weight loss of over 20lbs during the past month. - Altered mental status, suspect metabolic encephalopathy thought to be either due to infection (pneumonia), dehydration, mildly elevated ammonia level not improving on antibiotics or IV fluids so doubt it was infection or dehydration, stop Zosyn on 05/12 (afebrile, WBC normal entire admission) could be toxic if anti-epileptic drug levels too high, will take days to return, follow up on results, still not back today for now, maintain hydration with IV fluids, continue seizure medications ammonia high at 51 on 05/12, treated with Lactulose TID, down to 32 today, much more alert, suggesting that ammonia could be reason for encephalopathy - Possible aspiration pneumonia recent h/o vomiting a lot and then coughing bibasilar changes on CT chest completed a course of Levaquin outpatient procalcitonin <0.05, no evidence of sepsis, afebrile, WBC normal for days no clinical improvement in mental status on Zosyn, stop antibiotics on 05/12 and observe - nausea and vomiting: no vomiting since admission, will monitor - severe protein-calorie malnutrition: weight loss, low protein/albumin, vomiting as outpatient provide Boost if he can take PO - seizure disorder: continue Lamictal 350mg BID, Vimpat, Felbamate can have medications from [facility] since non-formulary here follow up on drug levels to make sure he is not over medicated - elevated ammonia: unclear etiology, liver US normal alk phos was 133 on admission, but other LFT normal continue Lactulose BID to have 2-3 BM a day transfer to medical floor today Full code - SCDs due to fall/trauma risk
[2017-05-14 06:04] LABS: BASO % 0.2 %; BASO ABS # 0.01 K/uL (0-0.2); EOS % 0.9 %; EOS ABS # 0.05 K/uL (0-0.5); HEMATOCRIT 36.8 % (42-52); HEMOGLOBIN 12.6 g/dL (14.0-18.0); IG# 0.01 K/uL (0.00-0.02); LYMPH % 24.9 %; LYMPH ABS # 1.35 K/uL (1.2-3.4); MEAN CELL VOLUME 92.5 fL (80-100); MEAN CORPUSCULAR HEMOGLOBIN 31.7 pg (25-34); MEAN CORPUSCULAR HGB CONC 34.2 g/dl (32-36); MEAN PLATELET VOLUME 8.6 fL (7.4-10.4); MONO % 7.4 %; NEUT % 66.4 %; NEUT ABS # 3.61 K/uL (1.4-6.5); PLATELET COUNT 124 K/uL (130-400); RED CELL DISTRIBUTION WIDTH CV 13.7 % (11.5-14.5); RED CELL DISTRIBUTION WIDTH SD 46.5 fL (36.4-46.3); WHITE BLOOD COUNT 5.43 K/uL (4.8-10.8)
[2017-05-14 06:24] LABS: CALCIUM 8.4 mg/dl (8.5-10.1); CREATININE 0.76 mg/dl (0.60-1.40); POTASSIUM 3.9 mmol/L (3.5-5.1)
[2017-05-14 07:15] VITALS: BP 122/68; PULSE 61; TEMP 36.3; O2SAT 97
[2017-05-14] MEDS: FELBAMATE 600 MG PO SCH ×2 (07:42→21:52)
[2017-05-14] MEDS: PANTOprazole SOD 40 MG TAB PO SCH (07:44)
[2017-05-14] MEDS: FLUOXETINE HCL 20 MG CAP PO SCH (07:45)
[2017-05-14] MEDS: LACOSAMIDE 50 MG TAB PO SCH ×2 (07:45→21:50)
[2017-05-14] MEDS: GABAPENTIN 100 MG CAP PO SCH ×3 (07:45→21:48)
[2017-05-14] MEDS: BusPIRone 15 MG TAB PO SCH ×2 (07:46→21:49)
[2017-05-14] MEDS ORDERED: MAGNESIUM SULFATE 1GM / D5W 1 GM in PREMIXED IN D5W 100 ML IV ONE (09:30)
[2017-05-14 15:18] VITALS: BP 121/75; PULSE 98; TEMP 36.7; O2SAT 94
[2017-05-14 16:03] VITALS: O2SAT 94
--- NOTE | 2017-05-14 16:53 | Hospitalist Progress Note ---
Hospitalist Progress Note Date of Service May 14, 2017. (Whit Sparrow .JOSE) Subjective Pt evaluation today including: conversation w/ patient, physical exam, chart review, lab review, review of inpatient medication list Voiding: no voiding problems Mr. Chatman says he is feeling much better today. He is alert and able to converse. He appears to be at his baseline tremors. ROS Constitutional: no chills, aches, sweats or fever Respiratory: no sob,cough, sputum, or wheezing Cardiac: no chest pain, palpitations, edema, orthopnea or lightheadedness GI: no abdominal pain, nausea, vomiting, diarrhea or constipation : no dysuria or hesitancy Extremities: no joint pain or weakness Skin: no rash All other systems reviewed and negative (Whit Sparrow CRNP) Medications Medications Administered Medications (Trade) Dose Ordered Sig/Hugh Route Start Time Stop Time Status Last Admin Dose Admin Sodium Chloride 1,000 ml @ 999 mls/hr Q1H1M STAT IV 05/10/17 11:56 05/10/17 12:56 DC 05/10/17 12:17 999 MLS/HR Vancomycin HCl 1500 mg/Sodium Chloride 530 ml @ 200 mls/hr ONE STAT IV 05/10/17 13:48 05/10/17 16:26 DC 05/10/17 15:35 200 MLS/HR Piperacillin Sod/ Tazobactam Sod (Zosyn Iv) 4.5 gm NOW STAT IV 05/10/17 13:48 05/10/17 13:51 DC 05/10/17 14:27 4.5 GM Buspirone HCl (BusPAR TAB) 15 mg QAM PO 05/11/17 09:00 06/10/17 08:59 05/14/17 07:46 15 MG Buspirone HCl (BusPAR TAB) 30 mg HS PO 05/10/17 21:00 06/09/17 20:59 05/13/17 21:29 30 MG Docusate Sodium (coLACE CAP) 100 mg BID PO 05/10/17 21:00 05/13/17 09:33 DC 05/13/17 08:28 100 MG Fluoxetine HCl (Prozac Cap) 20 mg DAILY PO 05/11/17 09:00 06/10/17 08:59 05/14/17 07:45 20 MG Gabapentin (Neurontin Cap) 100 mg TID PO 05/10/17 21:00 06/09/17 20:59 05/14/17 14:07 100 MG Propranolol HCl (Inderal LA Cap) 80 mg BID PO 05/10/17 21:00 05/13/17 09:33 DC 05/12/17 21:38 80 MG Senna/Docusate Sodium (Senokot S Tab) 1 tab HS PO 05/10/17 21:00 05/13/17 09:33 DC 05/12/17 21:38 1 TAB Lacosamide (Vimpat Tab) 200 mg BID PO 05/10/17 21:00 06/09/17 20:59 05/14/17 07:45 200 MG Pantoprazole Sodium (Protonix Tab) 40 mg QAM PO 05/11/17 09:00 06/10/17 08:59 05/14/17 07:44 40 MG Acetaminophen (Tylenol Tab) 650 mg Q4H PRN PO 05/10/17 16:00 06/09/17 15:59 05/12/17 01:02 650 MG Ondansetron HCl (Zofran Inj) 4 mg Q6H PRN IV 05/10/17 16:00 06/09/17 15:59 05/11/17 17:36 4 MG Potassium Chloride/Dextrose/ Sod Cl 1,000 ml @ 150 mls/hr Q6H40M IV 05/10/17 18:15 05/11/17 07:34 DC 05/11/17 05:57 150 MLS/HR Lactulose (Chronulac Syrup) 30 gm NOW ONCE PO 05/11/17 11:45 05/11/17 11:46 DC 05/11/17 13:17 30 GM Dextrose/Sodium Chloride 1,000 ml @ 75 mls/hr [id number] IV 05/11/17 11:30 05/13/17 09:33 DC 05/13/17 03:30 75 MLS/HR Piperacillin Sod/ Tazobactam Sod 3.375 gm/Dextrose 115 ml @ 230 mls/hr NOW ONCE IV 05/11/17 12:15 05/11/17 12:44 DC 05/11/17 13:17 230 MLS/HR Piperacillin Sod/ Tazobactam Sod 3.375 gm/Dextrose 115 ml @ 28.75 mls/ hr Q8H IV 05/11/17 18:00 05/12/17 12:43 DC 05/12/17 10:16 28.75 MLS/HR Felbamate (Felbatol) 600 mg BID PO 05/11/17 21:00 06/10/17 20:59 05/14/17 07:42 600 MG Lactulose (Chronulac Syrup) 30 gm TID PO 05/12/17 09:00 05/13/17 09:33 DC 05/13/17 08:30 30 GM Lamotrigine (Lamictal Tab) 350 mg BID PO 05/12/17 21:00 06/11/17 20:59 05/14/17 07:44 350 MG Magnesium Sulfate 1 gm/Prmx 100 ml @ 100 mls/hr ONE ONCE IV 05/14/17 09:30 05/14/17 10:29 DC 05/14/17 09:51 100 MLS/HR (Whit Sparrow CRNP) Objective Vital Signs Date Time Temp Pulse Resp B/P (MAP) Pulse Ox O2 Delivery O2 Flow Rate FiO2 05/14/17 15:18 36.7 98 20 121/75 (90) 94 05/14/17 08:00 Room Air 05/14/17 07:15 36.3 61 20 122/68 (86) 97 05/14/17 00:00 Room Air 05/13/17 23:50 36.7 56 16 100/52 (68) 96 Room Air 05/13/17 20:08 36.7 59 18 101/41 (61) 95 Room Air 05/13/17 20:00 Room Air (Whit Sparrow CRNP) Physical Exam Notes: General: no distress Eyes: normal inspection, PERLL Respiratory: chest non tender, clear to auscultation, normal breath sounds, no respiratory distress, no accessory muscle use Cardiac: regular rate and rhythm, no rub or gallop, no murmur, no edema, no jvd GI/: active bowel sounds, no abd pain or tenderness, soft, non distended Extremities: normal range of motion, normal strength, non tender Neuro/Psych: alert and oriented x 3, normal mood and affect, bilateral tremors Skin: normal color, dry (Whit Sparrow ., JOSE) Laboratory Results Last 24 Hours Test 05/14/17 05:53 White Blood Count 5.43 K/uL Red Blood Count 3.98 M/uL Hemoglobin 12.6 g/dL Hematocrit 36.8 % Mean Corpuscular Volume 92.5 fL Mean Corpuscular Hemoglobin 31.7 pg Mean Corpuscular Hemoglobin Concent 34.2 g/dl Platelet Count 124 K/uL Mean Platelet Volume 8.6 fL Neutrophils (%) (Auto) 66.4 % Lymphocytes (%) (Auto) 24.9 % Monocytes (%) (Auto) 7.4 % Eosinophils (%) (Auto) 0.9 % Basophils (%) (Auto) 0.2 % Neutrophils # (Auto) 3.61 K/uL Lymphocytes # (Auto) 1.35 K/uL Monocytes # (Auto) 0.40 K/uL Eosinophils # (Auto) 0.05 K/uL Basophils # (Auto) 0.01 K/uL RDW Standard Deviation 46.5 fL RDW Coefficient of Variation 13.7 % Immature Granulocyte % (Auto) 0.2 % Immature Granulocyte # (Auto) 0.01 K/uL Sodium Level 142 mmol/L Potassium Level 3.9 mmol/L Chloride Level 107 mmol/L Carbon Dioxide Level 32 mmol/L Anion Gap 3.0 mmol/L Blood Urea Nitrogen 4 mg/dl Creatinine 0.76 mg/dl Est Creatinine Clear Calc Drug Dose 124.5 ml/min Estimated GFR () 121.6 Estimated GFR (Non- 104.9 BUN/Creatinine Ratio 5.8 Random Glucose 88 mg/dl Calcium Level 8.4 mg/dl Magnesium Level 1.7 mg/dl Ammonia 31.3 umol/L (Whit Sparrow .JOSE) Assessment and Plan 51 y/o M Hx severe epilepsy, chronic ataxia, intellectual impairment, TBA. The pt was brought to the ER by a caregiver at his [facility] for altered mentation , nausea, vomiting and a cough. He normally maintains a degree of independence , however, he was unable to assist in his own ADLs or carry a conversation. 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 Intermittent nausea and vomiting were reported over the past few days. 2 weeks ago, the pt was treated for influenza and he was then given Levaquin one week ago for presumed pneumonia. - Altered mental status, suspect metabolic encephalopathy thought to be either due to infection (pneumonia), dehydration, mildly elevated ammonia level not improving on antibiotics or IV fluids so doubt it was infection or dehydration, stop Zosyn on 05/12 (afebrile, WBC normal entire admission) could be toxic if anti-epileptic drug levels too high, will take days to return, follow up on results, still not back today for now, maintain hydration with IV fluids, continue seizure medications ammonia high at 51 on 05/12, treated with Lactulose TID, down to 32 today, much more alert, suggesting that ammonia could be reason for encephalopathy however no obvious reason for ammonia elevation - liver US was normal - Possible aspiration pneumonia recent h/o vomiting a lot and then coughing bibasilar changes on CT chest showed mucous plugging/ possible aspiration completed a course of Levaquin outpatient procalcitonin <0.05, no evidence of sepsis, afebrile, WBC normal for days no clinical improvement in mental status on Zosyn, stopped antibiotics on and patient has continued to improve - nausea and vomiting: no vomiting since admission, will monitor - severe protein-calorie malnutrition: weight loss, low protein/albumin, vomiting as outpatient Boost, appetite has improved - seizure disorder: continue Lamictal 350mg BID, Vimpat, Felbamate can have medications from halfway since non-formulary here follow up on drug levels to make sure he is not over medicated alert and oriented today - elevated ammonia: unclear etiology, liver US normal alk phos was 133 on admission, but other LFT normal continue Lactulose BID to have 2-3 BM a day Full code - SCDs due to fall/trauma risk Dispo - [facility] tomorrow morning (Whit Sparrow ., JOSE) Supervising Note Dr. Maxwell I performed a history and physical examination on the patient. I reviewed above note and agree with it. I discussed plan with APC and patient. During my face to face encounter with the patient, I answered all of the patient's questions. Patient's mental status appears to be at baseline. Plan is to discharge patient in AM. (Chris Maxwell M.D.)
[2017-05-14 19:15] VITALS: BP 114/71; PULSE 69; TEMP 36.5; O2SAT 96
[2017-05-14] MEDS: BOOST VANILLA PO SCH (21:48)
[2017-05-14 23:44] VITALS: BP 112/65; PULSE 65; TEMP 36.7; O2SAT 95
[2017-05-15 07:21] VITALS: BP 115/62; PULSE 58; TEMP 36.6; O2SAT 96
[2017-05-15] MEDS: BOOST VANILLA PO SCH ×2 (07:57→08:24)
[2017-05-15] MEDS: FELBAMATE 600 MG PO SCH (07:59)
[2017-05-15] MEDS: PANTOprazole SOD 40 MG TAB PO SCH (08:00)
[2017-05-15] MEDS: LACOSAMIDE 50 MG TAB PO SCH (08:01)
[2017-05-15] MEDS: BusPIRone 15 MG TAB PO SCH (08:03)
[2017-05-15] MEDS: FLUOXETINE HCL 20 MG CAP PO SCH (08:03)
[2017-05-15] MEDS: GABAPENTIN 100 MG CAP PO SCH (08:03)
[2017-05-15 08:36] VITALS: BP 115/62; PULSE 58; TEMP 36.6; O2SAT 96
--- NOTE | 2017-05-15 09:55 | Discharge Instructions ---
Discharge Instructions Date of Service May 15, 2017. Admission Reason for Admission: Altered Mental Status, Nausea And Vomiting Discharge Discharge Diagnosis / Problem: AMS Discharge Goals Goal(s): Decrease discomfort, Improve function Activity Recommendations Activity Level: Assistance Required Therapies: Physical Therapy, Occupational Therapy patient has functional disability due to cerebral palsy . Additional Information Patient informed of condition: Yes Advance Directives: No DNR: No Level of Care: Acute Rehab Communicable Disease: No Prognosis: Stable Ayala Catheter: No Instructions / Follow-Up Instructions / Follow-Up Patient should follow up with neurology within about a week. Current Hospital Diet Patient's current hospital diet: Low Fiber Diet, Low Fat Diet Discharge Diet Recommended Diet: Regular Diet Procedures Procedures Performed: Liver US Chest CT Head CT Abd CT CXR Pending Studies Studies pending at discharge: yes List of pending studies: Felbamate level Physician Orders On Transfer POLST Discussion: without POLST completion Laboratory Results 05/14/17 05:53 Red Blood Count 3.98, Mean Corpuscular Volume 92.5, Mean Corpuscular Hemoglobin 31.7, Mean Corpuscular Hemoglobin Concent 34.2, Mean Platelet Volume 8.6, Neutrophils (%) (Auto) 66.4, Lymphocytes (%) (Auto) 24.9, Monocytes (%) (Auto) 7.4, Eosinophils (%) (Auto) 0.9, Basophils (%) (Auto) 0.2, Neutrophils # (Auto) 3.61, Lymphocytes # (Auto) 1.35, Monocytes # (Auto) 0.40, Eosinophils # (Auto) 0.05, Basophils # (Auto) 0.01 05/14/17 05:53 Test 05/10/17 12:15 05/10/17 13:50 05/11/17 05:08 05/11/17 05:11 Total Bilirubin 0.5 mg/dl (0.2-1) Direct Bilirubin 0.2 mg/dl (0-0.2) Aspartate Amino Transf (AST/SGOT) 15 U/L (15-37) Alanine Aminotransferase (ALT/SGPT) 18 U/L (12-78) Alkaline Phosphatase 133 U/L (45-117) Troponin I < 0.015 ng/ml (0-0.045) Total Protein 7.2 gm/dl (6.4-8.2) Albumin 4.0 gm/dl (3.4-5.0) Lipase 259 U/L (73-393) Hepatitis C Antibody Screen NEG (NEG) Urine Color DK YELLOW Urine Appearance CLEAR (CLEAR) Urine pH 5.5 (4.5-7.5) Urine Specific [place] 1.038 (1.000-1.030) Urine Protein TRACE (NEG) Urine Glucose (UA) NEG (NEG) Urine Ketones 1+ (NEG) Urine Occult Blood NEG (NEG) Urine Nitrite NEG (NEG) Urine Bilirubin NEG (NEG) Urine Urobilinogen NEG (NEG) Urine Leukocyte Esterase SMALL (NEG) Urine WBC (Auto) 0 /hpf (0-5) Urine RBC (Auto) 0-4 /hpf (0-4) Urine Hyaline Casts (Auto) 0 /lpf (0-5) Urine Epithelial Cells (Auto) 0-5 /lpf (0-5) Urine Bacteria (Auto) NEG (NEG) Lamotrigine (Lamictal) Level 11.9 mcg/mL (4.0-18.0) Vitamin B12 Level 641 pg/mL (211-911) Test 05/11/17 05:12 05/11/17 08:52 05/12/17 06:56 05/13/17 07:28 Thyroid Stimulating Hormone (TSH) 0.280 uIu/ml (0.300-4.500) Procalcitonin < 0.05 ng/ml (0-0.5) Free Thyroxine 0.93 ng/dl (0.80-1.60) Free Triiodothyronine 2.68 pg/ml (2.30-4.20) Phosphorus Level 2.5 mg/dl (2.5-4.9) Test 05/14/17 05:53 05/15/17 07:25 White Blood Count 5.43 K/uL (4.8-10.8) Red Blood Count 3.98 M/uL (4.7-6.1) Hemoglobin 12.6 g/dL (14.0-18.0) Hematocrit 36.8 % (42-52) Mean Corpuscular Volume 92.5 fL (80-100) Mean Corpuscular Hemoglobin 31.7 pg (25-34) Mean Corpuscular Hemoglobin Concent 34.2 g/dl (32-36) Platelet Count 124 K/uL (130-400) Mean Platelet Volume 8.6 fL (7.4-10.4) Neutrophils (%) (Auto) 66.4 % Lymphocytes (%) (Auto) 24.9 % Monocytes (%) (Auto) 7.4 % Eosinophils (%) (Auto) 0.9 % Basophils (%) (Auto) 0.2 % Neutrophils # (Auto) 3.61 K/uL (1.4-6.5) Lymphocytes # (Auto) 1.35 K/uL (1.2-3.4) Monocytes # (Auto) 0.40 K/uL (0.11-0.59) Eosinophils # (Auto) 0.05 K/uL (0-0.5) Basophils # (Auto) 0.01 K/uL (0-0.2) RDW Standard Deviation 46.5 fL (36.4-46.3) RDW Coefficient of Variation 13.7 % (11.5-14.5) Immature Granulocyte % (Auto) 0.2 % Immature Granulocyte # (Auto) 0.01 K/uL (0.00-0.02) Anion Gap 3.0 mmol/L (3-11) Est Creatinine Clear Calc Drug Dose 124.5 ml/min Estimated GFR () 121.6 Estimated GFR (Non- 104.9 BUN/Creatinine Ratio 5.8 (10-20) Calcium Level 8.4 mg/dl (8.5-10.1) Magnesium Level 1.7 mg/dl (1.8-2.4) Ammonia 31.3 umol/L (11-32) Bedside Glucose 80 mg/dl (70-99) Medical Emergencies . Who to Call and When: Medical Emergencies: If at any time you feel your situation is an emergency, please call 911 immediately. . Non-Emergent Contact Non-Emergency issues call your: Primary Care Provider Call Non-Emergent contact if: you have a fever, you have any medication questions . Past History Medical & Surgical History: (1) Pneumonia (2) Change in mental status (3) Nausea and vomiting (4) Epilepsy (5) Seizures (6) Mild mental retardation (7) Tremor (8) Ambulatory dysfunction . "Provider Documentation" section prepared by Whit Sparrow. . Core Measure Problem Core Measures: None
--- NOTE | 2017-05-15 10:10 | Discharge Summary ---
Discharge Summary Date of Service May 15, 2017. Discharge Summary Admission Date: May 10, 2017 at 16:00 Discharge Date: May 15, 2017 Discharge Disposition: Rehab Principal Diagnosis: AMS Problems/Secondary Diagnoses: Possible aspiration pneumonia, nausea and vomiting, severe protein-calorie malnutrition, seizure disorder, elevated ammonia Immunizations: Have You Had Influenza Vaccine: N/A Influenza Vaccine Date: Nov 03, 2009 History of Tetanus Vaccine?: Yes Tetanus Immunization Date: Jun 04, 2007 History of Pneumococcal: No History of Hepatitis B Vaccine: Unknown Hepatitis Immunization Date: Jun 04, 2007 Procedures: Description This is a 21 electrode EEG with a single channel dedicated to limited EKG. The electrodes were placed in accordance with the International 10-20 system. At the start of this recording the patient is in altered mental status. Background is poorly organized with no well-formed anterior to posterior gradient. Background is composed of symmetric moderate amplitude predominantly 6 Hz theta frequencies with intermixed alpha and beta frequencies. Hyperventilation was not done. Photic stimulation at various frequencies did not produce any abnormalities. Sleep was indicated by vertex waves and symmetric sleep spindles. Interpretation This is an abnormal routine EEG secondary to mild to moderate background disorganization and slowing. There was no electrographic seizures or epileptiform discharges. Clinical Correlation This EEG indicates mild to moderate encephalopathy of nonspecific etiology. BILIARY ULTRASOUND CLINICAL HISTORY: Elevated ammonia COMPARISON STUDY: 11/10/2007, CT scan dated 05/10/2017 FINDINGS: The examination was limited from a technical standpoint secondary to patient's inability to cooperate and extensive bowel gas. The pancreas was poorly visualized. No hepatic masses are delineated. The gallbladder surgically absent. There is no ductal dilatation. The common bile duct measures 6 mm. There is no right-sided hydronephrosis. IMPRESSION: 1. Surgically absent gallbladder 2. No evidence of ductal dilatation. 3. No hepatic masses are visualized ultrasonographically Electronically signed by: Terrence Liang M.D. 05/13/2017 11:[address] SCAN OF THE CHEST WITHOUT IV CONTRAST CLINICAL HISTORY: Vomiting. COMPARISON STUDY: Chest x-ray dated 05/10/2017. TECHNIQUE: CT scan of the thorax was performed from the thoracic inlet to the upper abdomen. Images are reviewed in the axial, sagittal, and coronal planes. IV contrast was not administered for this examination as per the front clinician. A dose lowering technique was utilized adhering to the principles of ALARA. The examination is degraded by streak artifact from the patient's arms which could not be elevated above the chest. CT DOSE: 403.35 mGy.cm FINDINGS: Thyroid: Imaged portions of the thyroid gland are normal in size and heterogeneous in attenuation. Thoracic aorta: The thoracic aorta is normal in caliber and demonstrates standard 3-vessel arch anatomy. Heart: The heart is enlarged and without pericardial effusion. The pulmonary trunk is dilated, measuring 3.3 cm in transverse diameter. This suggests pulmonary artery hypertension. Lungs and pleural spaces: Evaluation of the lung parenchyma is degraded by motion artifact. Fluid fills the esophagus to the level of the aortic arch. Fluid/debris is present within the dependent lower lobe airways. Patchy airspace opacities are seen in the lower lobes bilaterally. Foci of scarring versus atelectasis are present the lung bases. A large calcified granuloma is seen in the right lower lobe. No pleural effusion is identified. Mediastinum: There is no mediastinal lymphadenopathy. Cori: Not well assessed without IV contrast. There are calcification containing hilar nodes. Axillae: There is no axillary lymphadenopathy. Upper abdomen: Cholecystectomy clips are noted. A tiny hiatal hernia is identified. Skeletal structures: The skeletal structures are osteopenic. Mild degenerative change and scoliosis are noted in the thoracic spine. No lytic or blastic bony lesions are seen. IMPRESSION: 1. There is patchy groundglass consolidation seen in the lower lobes bilaterally. Correlate clinically for evidence of pneumonia/aspiration pneumonitis. 2. Fluid fills the esophagus to the level of the aortic arch. Additionally, there is fluid/debris within the dependent lower lobe airways. These findings raise suspicion for possible aspiration. Clinical correlation will be required. 3. Cardiomegaly. 4. Additional findings as above. Electronically signed by: José Luis Major M.D. 05/10/2017 4:[address] ABD/PELVIS IV CONTRAST ONLY CLINICAL HISTORY: vomiting COMPARISON STUDY: 02/18/2017 TECHNIQUE: Following the IV administration of 93 mL of Optiray-320, CT scan of the abdomen and pelvis was performed from the lung bases to the proximal femurs. Images are reviewed in the axial, sagittal, and coronal planes. IV contrast was administered without complication. A dose lowering technique was utilized adhering to the principles of ALARA. CT DOSE: 483.22 mGy.cm FINDINGS: Lower chest: There is a lower lobe calcified granuloma. There is lower lobe bronchial wall thickening and mucous plugging. Liver: There is a stable 14 mm hypodensity within left hepatic lobe anteriorly, possibly representing focal fat Gallbladder: Surgically absent Spleen: Normal in size and attenuation. Pancreas: Unremarkable. Adrenal glands: Unremarkable. Kidneys: There is symmetric renal cortical enhancement. The kidneys are normal in size without hydronephrosis. Bowel: There are no transition zones indicate bowel obstruction. The appendix appears normal. There is no evidence of acute diverticulitis. Peritoneum: There is no intraperitoneal free air or abdominal ascites. There are postsurgical changes are prior left inguinal hernia repair Vasculature: The abdominal aorta is normal in course and caliber. Adenopathy: None. Pelvic viscera: There is a thick walled contracted bladder. The prostate measures 53 mm. Skeletal structures: There is an old superior endplate L2 deformity. IMPRESSION: 1. No evidence of bowel obstruction. No evidence of free air 2. Normal appendix. No evidence of acute diverticulitis 3. Lower lobe bronchial wall thickening and mucous plugging 4. Thick-walled contracted bladder Electronically signed by: Terrence Liang M.D. 05/10/2017 2:[address] SCAN OF THE BRAIN WITHOUT IV CONTRAST CLINICAL HISTORY: Change in mental status. COMPARISON STUDY: CT of the brain dated 05/01/2017. TECHNIQUE: Unenhanced axial CT scan of the brain is performed from the vertex to the skull base. A dose lowering technique was utilized adhering to the principles of ALARA. CT DOSE: 614.27 mGy.cm FINDINGS: Brain parenchyma: The brain parenchyma is normal in appearance. There is no hemorrhage, mass effect, or evidence of acute territorial ischemia by CT criteria. Garcia-white matter is preserved. No extra-axial fluid collection is seen. Ventricles, sulci, cisterns: Normal in configuration. Intracranial vasculature: The visualized intracranial vasculature at the skull base is normal in appearance. Calvarium: Unremarkable. Sinuses and mastoids: Mild mucosal thickening is seen within the maxillary antra. The remaining visualized paranasal sinuses are clear. The mastoid air cells are well pneumatized. Orbits: The bony orbits are grossly intact. IMPRESSION: There is no hemorrhage, mass effect, or evidence of acute territorial ischemia by CT criteria. Electronically signed by: José Luis Major M.D. 05/10/2017 2:16 PM CHEST ONE VIEW PORTABLE CLINICAL HISTORY: cough, vomiting, flu-like symptoms COMPARISON STUDY: May 01, 2017 FINDINGS: There is a thoracolumbar scoliosis. The heart is at the upper limits of normal in size. There are bibasal airspace opacities, atelectatic versus inflammatory. The lung zones are clear. There is no failure. There are no significant pleural effusions.[ IMPRESSION: Bibasilar opacities likely atelectatic although an inflammatory/infectious process could appear similar Electronically signed by: Terrence Liang M.D. 05/10/2017 12:40 PM Consultations: Dr. Gregory with neurology Medication Reconciliation Continued Medications: Acetaminophen (Tylenol) 500 Mg Tab 500 MG PO Q4H PRN for Pain, TAB Alum & Mag Hydrox-Simethicone (Antacid & [place] 200-200-20 mg/5Ml) 1 Henrietta Henrietta 30 ML PO Q6 PRN for Buspirone Hcl (Buspar) 15 Mg Tab 15 MG PO QAM Buspirone Hcl (Buspar) 15 Mg Tab 30 MG PO HS Carbamide Peroxide (Otic) (Carbamide Peroxide) 6.5 % Jenniffer 5-10 DROPS OT BID USE THE FIRST 3 DAYS OF THE MONTH Dextromethorphan Polistirex (Delsym) 30 Mg/5 Ml Liq 10 ML PO Q12 PRN for Cough Docusate Sodium (Colace) 100 Mg Cap 100 MG PO BID Felbamate (Felbamate) 600 Mg Tab 600 MG PO BID Fluoxetine Hcl (Prozac) 20 Mg Cap 20 MG PO DAILY Gabapentin (Neurontin) 100 Mg Cap 100 MG PO TID, CAP Lacosamide (Vimpat) 200 Mg Tab 200 MG PO BID Lamotrigine (Lamotrigine Er) 300 Mg Tab 300 MG PO BID TAKE WITH 50MG = 350 MG TWICE DAILY. Lamotrigine (Lamictal Xr) 50 Mg Tab 50 MG PO BID TAKE WITH 300MG = 350 MG TWICE DAILY. Loperamide Hcl (Imodium A-D) 2 Mg Tab 4 MG PO UD PRN for Diarrhea Magnesium Hydroxide (Milk Of Magnesia) 30 Ml Susp 30 ML PO UD PRN for Constipation Multiple Vitamins W/ Minerals (Preservision Areds 2) 1 Cap Cap 2 CAP PO QAM Neomycin/Polymyx/Bacitr (Neosporin) Oint 1 APPL TOP BID PRN for CUTS,SCRAPES,ABRASIONS Omeprazole (Prilosec) 20 Mg Capcr 20 MG PO QAM Propranolol Hcl (Propranolol Hcl Er) 80 Mg Cap 80 MG PO BID, CAP 3 Refills Sennosides-Docusate Sodium (Senokot S) 1 Tab Tab 1 TAB PO HS [Clobazam] () 5 MG PO Q12 Discharge Exam ROS Constitutional: no chills, aches, sweats or fever Respiratory: no sob,cough, sputum, or wheezing Cardiac: no chest pain, palpitations, edema, orthopnea or lightheadedness GI: no abdominal pain, nausea, vomiting, diarrhea or constipation : no dysuria or hesitancy Extremities: no joint pain or weakness Skin: no rash All other systems reviewed and negative General: no distress Eyes: normal inspection, PERLL Respiratory: chest non tender, clear to auscultation, normal breath sounds, no respiratory distress, no accessory muscle use Cardiac: regular rate and rhythm, no rub or gallop, no murmur, no edema, no jvd GI/: active bowel sounds, no abd pain or tenderness, soft, non distended Extremities: normal range of motion, normal strength, non tender Neuro/Psych: drowsy and oriented x 3, normal mood and affect, tremors Skin: normal color, dry Hospital Course 51 y/o M Hx severe epilepsy, chronic ataxia, intellectual impairment, TBA. The pt was brought to the ER by [facility] for altered mentation , nausea, vomiting and a cough. He normally maintains a degree of independence , however, he was unable to assist in his own ADLs or carry a conversation. His mental status had deteriorated over the past week [employer]. Intermittent nausea and vomiting were reported over the past few days. 2 weeks ago, the pt was treated for influenza and he was then given Levaquin one week ago for presumed pneumonia. 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 - Altered mental status, suspect metabolic encephalopathy thought to be either due to infection (pneumonia), dehydration, mildly elevated ammonia level not improving on antibiotics or IV fluids so doubt it was infection or dehydration, stopped Zosyn on 05/12 (afebrile, WBC normal entire admission) could be toxic if anti-epileptic drug levels too high, follow up on results - lamotrigine level wnl, felbamate level pending for now, continue seizure medications ammonia was high at 51 on 05/12, treated with Lactulose TID, ammonia decreased to 32 today, much more alert, suggesting that ammonia could be reason for encephalopathy however no obvious reason for ammonia elevation - liver US was normal will discontinue lactulose for discharge - Possible aspiration pneumonia recent h/o vomiting a lot and then coughing bibasilar changes on CT chest showed mucous plugging/ possible aspiration completed a course of Levaquin outpatient procalcitonin <0.05, no evidence of sepsis, afebrile, WBC normal for days no clinical improvement in mental status on Zosyn, stopped antibiotics on and patient has continued to improve - nausea and vomiting: no vomiting since admission, tolerating advanced diet, can discharge with regular diet - severe protein-calorie malnutrition: weight loss, low protein/albumin, vomiting as outpatient Boost, appetite has improved - may want to consider protein supplement for outpatient - seizure disorder: continue Lamictal 350mg BID, Vimpat, Felbamate can have medications from [facility] since non-formulary here follow up on drug levels to make sure he is not over medicated alert and oriented today - elevated ammonia: unclear etiology, liver US normal alk phos was 133 on admission, but other LFTs normal discontinued lactulose for discharge Total Time Spent: Greater than 30 minutes This includes examination of the patient, discharge planning, medication reconciliation, and communication with other providers. Discharge Instructions Please refer to the electronic Patient Visit Report (Discharge Instructions) for additional information. Follow-Up Neurology in about a week Additional Copies To Jose Juan Brady M.D.
[2017-05-15] MEDS ORDERED: Boost PO (10:14)
== END 2017-05-15 11:00 | DRG 177 ==
LOC: EDBD 11:19 → C.EDA 11:20 → C.2T 16:00 → ENRESERV 16:13 → CANRESERV 05-13 09:45 → ENRESERV 05-13 09:45 → C.MED 05-13 09:54 → C.2T 05-13 09:54 → ENRESERV 05-13 10:00 → C.MED 05-13 10:55 → C.MS2W 05-14 22:46
PROVIDERS: ADMIT Internal Medicine; ATTEND Internal Medicine Sports Medicine
DX: J69.0 Pneumonitis due to inhalation of food and vomit (principal); G93.41 Metabolic encephalopathy; E43 Unspecified severe protein-calorie malnutrition; E72.20 Disorder of urea cycle metabolism, unspecified; G40.909 Epilepsy, unspecified, not intractable, without status epilepticus; G25.0 Essential tremor; R27.0 Ataxia, unspecified; R11.2 Nausea with vomiting, unspecified; J06.9 Acute upper respiratory infection, unspecified; G80.9 Cerebral palsy, unspecified; Z68.23 Body mass index [BMI] 23.0-23.9, adult; Z79.899 Other long term (current) drug therapy; Z88.5 Allergy status to narcotic agent; Z88.6 Allergy status to analgesic agent; Z88.8 Allergy status to other drugs, medicaments and biological substances

== ENCOUNTER 2017-06-09 13:46 | Emergency (ER) | payer OTHER ==
[~2017-06-09] VITALS: Ht 180.3 cm; Wt 78.1 kg
[~2017-06-09 13:46] MED LIST changes: +Boost PO; -LEVO1TAB35 PO
[2017-06-09 13:56] VITALS: TEMP 37.1; Ht 180.3 cm; Wt 78.1 kg
--- NOTE | 2017-06-09 14:20 | EMERGENCY ROOM VISIT NOTE ---
History Report prepared by [place]: Nivia Perry Under the Supervision of: Dr. Jona Dai M.D. 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 He is accompanied by a caregiver from the facility who reports that the patient was walking back to his bedroom when the patient said that he slipped on the area rug and fell and hit his head. The patient has been taking all of is medications. He reports he has a headache. HPI and ROS are limited due to the patient's baseline mental condition. 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 A total of ten systems were reviewed and were otherwise negative. HPI and ROS are limited due to the patient 's baseline mental condition. Past Medical & Surgical Medical Problems: (1) Altered mental status (2) Ambulatory dysfunction (3) Encephalopathy (4) Epilepsy (5) Hydronephrosis with ureteral calculus (6) Inguinal hernia (7) Kidney stone (8) Mild mental retardation (9) Nausea and vomiting (10) Rectal bleed (11) Seizure disorder (12) Seizures (13) Status epilepticus (14) TBI (traumatic brain injury) (15) Tegretol toxicity (16) Tremor (17) Urinary retention Family History Heart disease Hypertension Kidney disease Social History Smoking Status: Never Smoker Alcohol Use: none Drug Use: none Marital Status: single Housing Status: assisted living Occupation Status: disabled Current/Historical Medications Scheduled Buspirone Hcl (Buspar), 15 MG PO QAM Buspirone Hcl (Buspar), 30 MG PO HS Carbamide Peroxide (Otic) (Carbamide Peroxide), 5-10 DROPS OT BID Docusate Sodium (Colace), 100 MG PO BID Felbamate (Felbamate), 600 MG PO BID Fluoxetine Hcl (Prozac), 20 MG PO DAILY Gabapentin (Neurontin), 100 MG PO TID Lacosamide (Vimpat), 200 MG PO BID Lamotrigine (Lamotrigine Er), 300 MG PO BID Lamotrigine (Lamictal Xr), 50 MG PO BID Multiple Vitamins W/ Minerals (Preservision Areds 2), 2 CAP PO QAM Omeprazole (Prilosec), 20 MG PO QAM Sennosides-Docusate Sodium (Senokot S), 1 TAB PO HS [Onfi], 5 MG PO BID Scheduled PRN Acetaminophen (Tylenol), 500 MG PO Q4H PRN for Pain Alum & Mag Hydrox-Simethicone (Antacid & Antigas 200-200-20 mg/5Ml), 30 ML PO Q6 PRN for Dextromethorphan Polistirex (Delsym), 10 ML PO Q12 PRN for Cough Loperamide Hcl (Imodium A-D), 4 MG PO UD PRN for Diarrhea Magnesium Hydroxide (Milk Of Magnesia), 30 ML PO UD PRN for Constipation Neomycin/Polymyx/Bacitr (Neosporin), 1 APPL TOP BID PRN for CUTS,SCRAPES, ABRASIONS Allergies Coded Allergies: Sulfamethoxazole w/Trimethoprim (Verified Allergy, Unknown, dizziness and increase in tremor, 06/09/17) Grapefruit (Verified Adverse Reaction, Unknown, INTERACTS WITH OTHER MEDS , 06/09/17) Ibuprofen (Verified Adverse Reaction, Unknown, avoids secondary to reactions with other medications, 06/09/17) Levetiracetam (Verified Adverse Reaction, Unknown, AGITATION, 06/09/17) Physical Exam Vital Signs Date Time Temp Pulse Resp B/P (MAP) Pulse Ox O2 Delivery O2 Flow Rate FiO2 06/09/17 16:30 49 15 97/64 92 Room Air 06/09/17 13:59 55 06/09/17 13:56 37.1 55 16 130/109 100 Room Air Physical Exam Physical Exam HENT: Exam performed. Head: Normocephalic. Abrasion over the left eyebrow Right Ear: External ear normal. No mastoid tenderness. Left Ear: External ear normal. No mastoid tenderness. Mouth/Throat: The oropharynx is clear and moist. No trismus in the jaw. No dental abscesses or uvula swelling. No oropharyngeal exudate or tonsillar abscesses. ____ EYES: Conjunctivae and EOM are normal. Pupils are equal, round, and reactive to light. Right eye exhibits no discharge. Left eye exhibits no discharge. No scleral icterus. ____ NECK: Normal range of motion. Neck supple. No JVD present. No spinous process tenderness present. No carotid bruit present. No rigidity. No tracheal deviation and normal range of motion present. No Brudzinski's sign and no Kernig 's sign noted. ____ CV: Normal rate, regular rhythm, normal heart sounds and intact distal pulses. There is no peripheral edema. Palpable radial pulses bue. ____ PULM/CHEST: Effort normal and breath sounds normal. No respiratory distress. No stridor. He has no wheezes. He has no rales. Chest Wall: He exhibits no tenderness. ____ ABD: The abdomen is soft. Bowel sounds are normal. He has no distension. No mass is present. There is no tenderness. There is no rebound, no guarding, no Schaffer's sign and no tenderness at McBurney's point. Rovsig negative MUSC/SKEL: Normal range of motion. There is no peripheral edema, tenderness or deformity. LYMPH: No cervical adenopathy. ____ NEURO: Resting tremor no cranial nerve deficit. Sensation within normal limits. SKIN: Skin is warm and dry. He is not diaphoretic. ____ PSYCH: He has a normal mood and affect. His behavior is normal. Judgment and thought content normal. ____ Medical Decision & Procedures ER Provider Diagnostic Interpretation: Radiology results as stated below per my review and radiologist interpretation: PELVIS 1 OR 2 VIEW ROUTINE CLINICAL HISTORY: 52 years-old Male presenting with fall, laceration on the forehead. TECHNIQUE: Single frontal view of the pelvis was obtained. COMPARISON: 03/23/2016. FINDINGS: Sacroiliac joints, pubic symphysis, and hip joints congruent. Bony pelvis intact. Femoral necks grossly intact. Lower lumbar spine grossly normal. IMPRESSION: No acute osseous injury. Electronically signed by: John Chavez M.D. 06/09/2017 3:44 PM Dictated Date/Time: 06/09/2017 3:43 PM HEAD WITHOUT CONTRAST (CT) CLINICAL HISTORY: 52 years-old Male presenting with fall. TECHNIQUE: Multidetector CT imaging of the head was performed without the use of intravenous contrast. IV contrast: None. A dose lowering technique was used consistent with the principles of ALARA (as low as reasonably achievable). COMPARISON: 05/10/2017. CT DOSE (mGy.cm): The estimated cumulative dose is 1055.95. FINDINGS: Machine Operators topogram: Unremarkable. Ventricles and sulci normal in size. Brain parenchyma normal in appearance with preserved garcia-white differentiation. No mass effect or midline shift. No hemorrhage or acute territorial infarct. No extra-axial fluid collection. Paranasal sinuses and mastoid air cells clear. Calvarium intact. IMPRESSION: 1. No acute intracranial abnormality. Electronically signed by: John Chavez M.D. 06/09/2017 2:47 PM Dictated Date/Time: 06/09/2017 2:46 PM CHEST 2 VIEWS ROUTINE CLINICAL HISTORY: 52 years-old Male presenting with fall. TECHNIQUE: Portable upright AP view of the chest was obtained. COMPARISON: 05/10/2017. FINDINGS: Cardiac silhouette mildly enlarged, unchanged. Mild pulmonary vascular prominence. Bronchial wall thickening suggested. Persistent elevation of the left hemidiaphragm with bandlike opacity at the left lung base. No new focal opacity. No large effusion or pneumothorax. Scoliotic curvature of the spine. Cholecystectomy clips noted. IMPRESSION: 1. Cardiomegaly with mild congestive change. 2. Unchanged left basilar atelectasis or scarring. Electronically signed by: John Chavez M.D. 06/09/2017 3:43 PM Dictated Date/Time: 06/09/2017 3:41 PM CERVICAL SPINE W/O CLINICAL HISTORY: 52 years-old Male presenting with fall from chair, head injury with laceration to the left forehead, history of seizures. TECHNIQUE: Multidetector CT of the cervical spine was performed without the use of intravenous contrast. IV contrast: None. A dose lowering technique was used consistent with the principles of ALARA (as low as reasonably achievable). COMPARISON: 05/01/2017. CT DOSE (mGy.cm): The estimated cumulative dose is 1055.95 mGy.cm. FINDINGS: Machine Operators topogram: Unremarkable. Slight straightening of normal cervical lordosis likely positional and secondary to multilevel degenerative changes. Heterotopic ossification noted in the posterior soft tissues of the neck, unchanged. Vertebral bodies maintain normal height and alignment. Intervertebral disc height loss noted at C5-6 and to a lesser extent at C6-7 secondary to disc osteophyte complexes. A smaller disc osteophyte complexes noted at C4-5. Posterior bony spurring as result of the disc osteophyte complexes noted at C5-6 and C6-7. This mildly narrows the spinal canal. Osseous neural foraminal narrowing noted bilaterally at C5-6 and on the left at C6-7. No acute fracture or subluxation. Subcentimeter nodule noted in the right lobe of the thyroid. Paraspinal soft tissues within normal limits allowing for noncontrast technique. Lung apices essentially clear. IMPRESSION: 1. No acute osseous injury of the cervical spine. 2. Multilevel degenerative changes. Electronically signed by: John Chavez M.D. 06/09/2017 2:51 PM Dictated Date/Time: 06/09/2017 2:48 PM Laboratory Results 06/09/17 15:11 Red Blood Count 4.55, Mean Corpuscular Volume 93.4, Mean Corpuscular Hemoglobin 31.6, Mean Corpuscular Hemoglobin Concent 33.9, Mean Platelet Volume 8.9, Neutrophils (%) (Auto) 63.1, Lymphocytes (%) (Auto) 23.6, Monocytes (%) (Auto) 10.2, Eosinophils (%) (Auto) 2.5, Basophils (%) (Auto) 0.4, Neutrophils # (Auto ) 3.54, Lymphocytes # (Auto) 1.32, Monocytes # (Auto) 0.57, Eosinophils # (Auto ) 0.14, Basophils # (Auto) 0.02 06/09/17 15:11 Test 06/09/17 14:50 06/09/17 15:11 Urine Color YELLOW Urine Appearance CLEAR (CLEAR) Urine pH 6.5 (4.5-7.5) Urine Specific [facility] 1.011 (1.000-1.030) Urine Protein NEG (NEG) Urine Glucose (UA) NEG (NEG) Urine Ketones NEG (NEG) Urine Occult Blood NEG (NEG) Urine Nitrite NEG (NEG) Urine Bilirubin NEG (NEG) Urine Urobilinogen NEG (NEG) Urine Leukocyte Esterase NEG (NEG) White Blood Count 5.60 K/uL (4.8-10.8) Red Blood Count 4.55 M/uL (4.7-6.1) Hemoglobin 14.4 g/dL (14.0-18.0) Hematocrit 42.5 % (42-52) Mean Corpuscular Volume 93.4 fL (80-100) Mean Corpuscular Hemoglobin 31.6 pg (25-34) Mean Corpuscular Hemoglobin Concent 33.9 g/dl (32-36) Platelet Count 150 K/uL (130-400) Mean Platelet Volume 8.9 fL (7.4-10.4) Neutrophils (%) (Auto) 63.1 % Lymphocytes (%) (Auto) 23.6 % Monocytes (%) (Auto) 10.2 % Eosinophils (%) (Auto) 2.5 % Basophils (%) (Auto) 0.4 % Neutrophils # (Auto) 3.54 K/uL (1.4-6.5) Lymphocytes # (Auto) 1.32 K/uL (1.2-3.4) Monocytes # (Auto) 0.57 K/uL (0.11-0.59) Eosinophils # (Auto) 0.14 K/uL (0-0.5) Basophils # (Auto) 0.02 K/uL (0-0.2) RDW Standard Deviation 48.0 fL (36.4-46.3) RDW Coefficient of Variation 14.0 % (11.5-14.5) Immature Granulocyte % (Auto) 0.2 % Immature Granulocyte # (Auto) 0.01 K/uL (0.00-0.02) Prothrombin Time 10.6 SECONDS (9.0-12.0) Prothromb Time International Ratio 1.0 (0.9-1.1) Activated Partial Thromboplast Time 37.2 SECONDS (21.0-31.0) Partial Thromboplastin Ratio 1.4 Anion Gap 4.0 mmol/L (3-11) Est Creatinine Clear Calc Drug Dose 92.8 ml/min Estimated GFR () 101.6 Estimated GFR (Non- 87.7 BUN/Creatinine Ratio 9.2 (10-20) Lactic Acid Level 0.9 mmol/L (0.4-2.0) Calcium Level 9.1 mg/dl (8.5-10.1) Ammonia 33.6 umol/L (11-32) Laboratory results reviewed by me ECG Per My Interpretation Indication: other (fall) Rate (beats per minute): 53 Rhythm: sinus rhythm Findings: other (TX, QRS, and QTC all within normal limits, no ST elevation or ST depression. There is baseline artifact due to the patients resting tremor. ) ED Course 1411: The patient was evaluated in room C9. A complete history and physical exam was performed. 1550: His vitals are stable. He is neurologically at his baseline and in no acute distress. Imaging shows no acute injuries. Labs were unremarkable with the exception of a mildly elevated ammonia level of 33.6. His previous ammonia level was 31.8. He will be discharged with follow up. DISCHARGE - Plan of care discussed with patient and questions answered. The patient was given both verbal and printed discharge instructions. The patient verbalized understanding and ability to comply. The patient is to seek outpatient follow up as noted in the discharge instructions. The patient verbalized understanding and ability to comply. The patient is discharged in stable condition. The patient was instructed to return for worsening symptoms. Medical Decision His vitals are stable. He is neurologically at his baseline and in no acute distress. Imaging shows no acute injuries. Labs were unremarkable with the exception of a mildly elevated ammonia level of 33.6. His previous ammonia level was 31.8. He will be discharged with follow up. DISCHARGE - Plan of care discussed with patient and questions answered. The patient was given both verbal and printed discharge instructions. The patient verbalized understanding and ability to comply. The patient is to seek outpatient follow up as noted in the discharge instructions. The patient verbalized understanding and ability to comply. The patient is discharged in stable condition. The patient was instructed to return for worsening symptoms. Medication Reconcilliation Current Medication List: was personally reviewed by me Blood Pressure Screening Patient's blood pressure: Elevated blood pressure Blood pressure disposition: Elevated BP felt to be situational Impression Primary Impression: Fall Additional Impression: Closed head injury Scribe Attestation The scribe's documentation has been prepared under my direction and personally reviewed by me in its entirety. I confirm that the note above accurately reflects all work, treatment, procedures, and medical decision making performed by me. The chart was completed utilizing [employer] voice recognition software. Grammatical errors, random word insertions, pronoun errors, and incomplete sentences are an occasional consequence of this system due to software limitations, ambient noise, and hardware issues. Any formal questions or concerns about the content, text, or information contained within the body of this dictation should be directly addressed to the physician for clarification. Departure Information Dispostion Home / Self-Care Referrals Jose Juan Brady M.D. (PCP) Forms HOME CARE DOCUMENTATION FORM, IMPORTANT VISIT INFORMATION Patient Instructions My [facility] Additional Instructions Return to the emergency department if the patient develops fever greater than 100.4, increase/recurrent falls, increase headache, chest pain, shortness of breath, blood in his urine, blood in his stool, increased tremor, increased confusion. Problem Qualifiers Primary Impression: Fall Encounter type: initial encounter Qualified Codes: W19.XXXA - Unspecified fall, initial encounter Additional Impression: Closed head injury Encounter type: initial encounter Qualified Codes: S09.90XA - Unspecified injury of head, initial encounter
--- NOTE | 2017-06-09 14:49 | DIAGNOSTIC IMAGING REPORT ---
HEAD WITHOUT CONTRAST (CT) CLINICAL HISTORY: 52 years-old Male presenting with fall. TECHNIQUE: Multidetector CT imaging of the head was performed without the use of intravenous contrast. IV contrast: None. A dose lowering technique was used consistent with the principles of ALARA (as low as reasonably achievable). COMPARISON: 05/10/2017. CT DOSE (mGy.cm): The estimated cumulative dose is 1055.95. FINDINGS: Digital Measurement Advisor topogram: Unremarkable. Ventricles and sulci normal in size. Brain parenchyma normal in appearance with preserved garcia-white differentiation. No mass effect or midline shift. No hemorrhage or acute territorial infarct. No extra-axial fluid collection. Paranasal sinuses and mastoid air cells clear. Calvarium intact. IMPRESSION: 1. No acute intracranial abnormality. Electronically signed by: John Chavez M.D. 06/09/2017 2:47 PM Dictated Date/Time: 06/09/2017 2:46 PM
--- NOTE | 2017-06-09 14:53 | DIAGNOSTIC IMAGING REPORT ---
CERVICAL SPINE W/O CLINICAL HISTORY: 52 years-old Male presenting with fall from chair, head injury with laceration to the left forehead, history of seizures. TECHNIQUE: Multidetector CT of the cervical spine was performed without the use of intravenous contrast. IV contrast: None. A dose lowering technique was used consistent with the principles of ALARA (as low as reasonably achievable). COMPARISON: 05/01/2017. CT DOSE (mGy.cm): The estimated cumulative dose is 1055.95 mGy.cm. FINDINGS: Clinical Academic Allergist topogram: Unremarkable. Slight straightening of normal cervical lordosis likely positional and secondary to multilevel degenerative changes. Heterotopic ossification noted in the posterior soft tissues of the neck, unchanged. Vertebral bodies maintain normal height and alignment. Intervertebral disc height loss noted at C5-6 and to a lesser extent at C6-7 secondary to disc osteophyte complexes. A smaller disc osteophyte complexes noted at C4-5. Posterior bony spurring as result of the disc osteophyte complexes noted at C5-6 and C6-7. This mildly narrows the spinal canal. Osseous neural foraminal narrowing noted bilaterally at C5-6 and on the left at C6-7. No acute fracture or subluxation. Subcentimeter nodule noted in the right lobe of the thyroid. Paraspinal soft tissues within normal limits allowing for noncontrast technique. Lung apices essentially clear. IMPRESSION: 1. No acute osseous injury of the cervical spine. 2. Multilevel degenerative changes. Electronically signed by: John Chavez M.D. 06/09/2017 2:51 PM Dictated Date/Time: 06/09/2017 2:48 PM
[2017-06-09 15:21] LABS: BASO % 0.4 %; BASO ABS # 0.02 K/uL (0-0.2); EOS % 2.5 %; EOS ABS # 0.14 K/uL (0-0.5); HEMATOCRIT 42.5 % (42-52); HEMOGLOBIN 14.4 g/dL (14.0-18.0); IG# 0.01 K/uL (0.00-0.02); LYMPH % 23.6 %; LYMPH ABS # 1.32 K/uL (1.2-3.4); MEAN CELL VOLUME 93.4 fL (80-100); MEAN CORPUSCULAR HEMOGLOBIN 31.6 pg (25-34); MEAN CORPUSCULAR HGB CONC 33.9 g/dl (32-36); MEAN PLATELET VOLUME 8.9 fL (7.4-10.4); MONO % 10.2 %; MONO ABS # 0.57 K/uL (0.11-0.59); NEUT % 63.1 %; NEUT ABS # 3.54 K/uL (1.4-6.5); PLATELET COUNT 150 K/uL (130-400)
[2017-06-09 15:33] LABS: PTT PATIENT 37.2 SECONDS (21.0-31.0)
[2017-06-09] MEDS ORDERED: ONFI PO (15:35)
[2017-06-09 15:38] LABS: CALCIUM 9.1 mg/dl (8.5-10.1); CREATININE 0.98 mg/dl (0.60-1.40); POTASSIUM 4.2 mmol/L (3.5-5.1)
--- NOTE | 2017-06-09 15:44 | DIAGNOSTIC IMAGING REPORT ---
CHEST 2 VIEWS ROUTINE CLINICAL HISTORY: 52 years-old Male presenting with fall. TECHNIQUE: Portable upright AP view of the chest was obtained. COMPARISON: 05/10/2017. FINDINGS: Cardiac silhouette mildly enlarged, unchanged. Mild pulmonary vascular prominence. Bronchial wall thickening suggested. Persistent elevation of the left hemidiaphragm with bandlike opacity at the left lung base. No new focal opacity. No large effusion or pneumothorax. Scoliotic curvature of the spine. Cholecystectomy clips noted. IMPRESSION: 1. Cardiomegaly with mild congestive change. 2. Unchanged left basilar atelectasis or scarring. Electronically signed by: John Chavez M.D. 06/09/2017 3:43 PM Dictated Date/Time: 06/09/2017 3:41 PM
--- NOTE | 2017-06-09 15:45 | DIAGNOSTIC IMAGING REPORT ---
PELVIS 1 OR 2 VIEW ROUTINE CLINICAL HISTORY: 52 years-old Male presenting with fall, laceration on the forehead. TECHNIQUE: Single frontal view of the pelvis was obtained. COMPARISON: 03/23/2016. FINDINGS: Sacroiliac joints, pubic symphysis, and hip joints congruent. Bony pelvis intact. Femoral necks grossly intact. Lower lumbar spine grossly normal. IMPRESSION: No acute osseous injury. Electronically signed by: John Chavez M.D. 06/09/2017 3:44 PM Dictated Date/Time: 06/09/2017 3:43 PM
[2017-06-09 16:30] VITALS: BP 97/64; PULSE 49; O2SAT 92
== END 2017-06-09 16:40 | disposition home or self-care (01) ==
LOC: EDBD 13:46 → C.EDC 13:48
DX: S09.90XA Unspecified injury of head, initial encounter (principal); S00.81XA Abrasion of other part of head, initial encounter; W18.39XA Other fall on same level, initial encounter; G40.909 Epilepsy, unspecified, not intractable, without status epilepticus; G25.0 Essential tremor; Z79.899 Other long term (current) drug therapy; Z88.8 Allergy status to other drugs, medicaments and biological substances; R51 Headache; G93.40 Encephalopathy, unspecified; F70 Mild intellectual disabilities

== ENCOUNTER 2017-07-18 13:05 | Inpatient (IN) | payer OTHER ==
[~2017-07-18] VITALS: Ht 175.3 cm; Wt 72.7 kg
[~2017-07-18 13:05] MED LIST changes: -Boost PO; -CLOBAZAM PO; +ONFI PO; -PROP80CA PO
[2017-07-18] MEDS ORDERED: SODIUM CHLORIDE 0.9% 1000ML 1,000 ML IV STA (13:38)
[2017-07-18 14:24] LABS: PTT PATIENT 40.8 SECONDS (21.0-31.0)
[2017-07-18 14:35] LABS: ALBUMIN 3.7 gm/dl (3.4-5.0); CALCIUM 8.5 mg/dl (8.5-10.1); CREATININE 0.94 mg/dl (0.60-1.40); POTASSIUM 3.7 mmol/L (3.5-5.1)
[2017-07-18 14:37] LABS: TOTAL PROTEIN 6.9 gm/dl (6.4-8.2)
[2017-07-18 14:40] LABS: BASO % 0.1 %; BASO ABS # 0.01 K/uL (0-0.2); EOS % 0.5 %; EOS ABS # 0.04 K/uL (0-0.5); HEMATOCRIT 40.1 % (42-52); HEMOGLOBIN 13.7 g/dL (14.0-18.0); IG# 0.01 K/uL (0.00-0.02); LYMPH % 12.5 %; LYMPH ABS # 1.09 K/uL (1.2-3.4); MEAN CELL VOLUME 92.8 fL (80-100); MEAN CORPUSCULAR HEMOGLOBIN 31.7 pg (25-34); MEAN CORPUSCULAR HGB CONC 34.2 g/dl (32-36); MEAN PLATELET VOLUME 9.2 fL (7.4-10.4); MONO ABS # 0.61 K/uL (0.11-0.59); NEUT % 79.8 %; NEUT ABS # 6.96 K/uL (1.4-6.5); PLATELET COUNT 167 K/uL (130-400); RED CELL DISTRIBUTION WIDTH CV 13.4 % (11.5-14.5); RED CELL DISTRIBUTION WIDTH SD 45.5 fL (36.4-46.3); WHITE BLOOD COUNT 8.72 K/uL (4.8-10.8)
--- NOTE | 2017-07-18 16:43 | DIAGNOSTIC IMAGING REPORT ---
HEAD CT NONCONTRAST CT DOSE: 1718.51 mGycm HISTORY: seizure altered mental status vomitting TECHNIQUE: Multiaxial CT images of the head were performed without the use of intravenous contrast. Automated exposure control was utilized for this study. A dose lowering technique was utilized adhering to the principles of ALARA. Comparison: Head CT 06/09/2017. Findings: Mild mucosal thickening within the maxillary sinuses and left ethmoid air cells. The mastoid air cells are clear. The calvarium and skull base are intact. The ventricles and sulci are within normal limits. There is no mass, hematoma, midline shift, or acute infarct. Impression: No acute intracranial abnormality. Electronically signed by: Marshall Castillo M.D. 07/18/2017 4:42 PM Dictated Date/Time: 07/18/2017 4:35 PM
--- NOTE | 2017-07-18 17:39 | DIAGNOSTIC IMAGING REPORT ---
CHEST 2 VIEWS ROUTINE HISTORY: 52 years-old Male ams acutely altered mental status COMPARISON: Chest radiograph 06/09/2017 TECHNIQUE: AP and lateral views of the chest FINDINGS: Cardiac silhouette is within normal limits in size. There is no pneumothorax or pleural effusion. There are patchy alveolar opacities about the bilateral lung bases. No overt pulmonary edema. Sigmoidal scoliosis of the thoracolumbar spine. Cholecystectomy clips noted. IMPRESSION: Subsegmental patchy bibasilar alveolar opacities are suspicious for pneumonia or aspiration pneumonitis. The above report was generated using voice recognition software. It may contain grammatical, syntax or spelling errors. Electronically signed by: Yogesh Keen M.D. 07/18/2017 5:37 PM Dictated Date/Time: 07/18/2017 5:33 PM
[2017-07-18] MEDS ORDERED: MAGNESIUM HYDROXIDE SUSP 30 ML UDC PO PRN (18:00)
[2017-07-18] MEDS ORDERED: ALUMINUM/MAGNESIUM/SIMETH (MAALOX MAX) 30 ML UDC PO PRN (18:00)
[2017-07-18] MEDS ORDERED: POLYETHYLENE (MIRALAX) 17 GM PACK PO PRN (18:00)
[2017-07-18] MEDS ORDERED: ACETAMINOPHEN 325 MG TAB PO PRN (18:00)
[2017-07-18] MEDS ORDERED: ONDANSETRON INJ 2 MG/ML 2 ML VIAL IV PRN (18:00)
--- NOTE | 2017-07-18 18:10 | EMERGENCY ROOM VISIT NOTE ---
History Report prepared by Fernandoibyesenia: Foster Drummond Under the Supervision of: Dr. Jona Dai M.D. First contact with patient: 13:36 Chief Complaint: VOMITING Stated Complaint: ALTERED MENTAL STATUS Nursing Triage Summary: Pt arrives ALS for evaluation of vomiting; greater than 24 hrs. Has not voided since yesterday at 1747. Had loose stools on Sunday and no BM since then. Pt resides in /long-term in [place]. Cfa of long-term is at bedside , as well as pt's father. Pt does have a seizure hx and last documented seizure was on Sunday. Director Information Security reports pt assisted with transfer to [facility] and after that had a brief moment of unresponsiveness, head turning side to side; possibly petite mal seizure. Cfa reports pt's normal temp range 95'-96'. Recently treated for staph infection of right index finger; finished Keflex yesterday. Two sutures intact. Pt always has tremors History of Present Illness The patient is a 52 year old male who presents to the Emergency Room by EMS with complaints of intermittent vomiting beginning yesterday. The patient has a history of MR and lives in a long-term. History obtained per caregiver. His vomit appears orange/yellow in appearance. The patient recently had finger surgery (related to Staph infection), and was started on Keflex. Caregiver states that the patient has not urinated in the past 24 hours. The patient has had no black or bloody stools. His last normal bowel movement was several days ago. His most recent bowel movement was diarrhea three days ago. The patient had multiple "small" seizures two days ago. He normally has seizures. His longed seizure was 48 seconds. HPI limited secondary to MR. Source of History: caregiver History Limited By: other (MR) Onset: Yesterday Quality: other (vomiting) Timing: intermittent Associated Symptoms: No melena, No hematochezia Review of Systems ROS limited secondary to MR. Past Medical & Surgical Medical Problems: (1) Altered mental status (2) Ambulatory dysfunction (3) Dehydration (4) Encephalopathy (5) Epilepsy (6) Hydronephrosis with ureteral calculus (7) Inguinal hernia (8) Kidney stone (9) Mild mental retardation (10) Nausea and vomiting (11) Rectal bleed (12) Seizure disorder (13) Seizures (14) Status epilepticus (15) TBI (traumatic brain injury) (16) Tegretol toxicity (17) Tremor (18) Urinary retention Family History Heart disease Hypertension Kidney disease Social History Smoking Status: Never Smoker Alcohol Use: none Drug Use: none Marital Status: single Housing Status: assisted living Occupation Status: disabled Current/Historical Medications Scheduled Buspirone Hcl (Buspar), 15 MG PO QAM Buspirone Hcl (Buspar), 30 MG PO HS Carbamide Peroxide (Otic) (Carbamide Peroxide), 5-10 DROPS OT BID Docusate Sodium (Colace), 100 MG PO BID Felbamate (Felbamate), 600 MG PO BID Fluoxetine Hcl (Prozac), 20 MG PO DAILY Gabapentin (Neurontin), 100 MG PO TID Lacosamide (Vimpat), 200 MG PO BID Lamotrigine (Lamotrigine Er), 300 MG PO BID Lamotrigine (Lamictal Xr), 50 MG PO BID Multiple Vitamins W/ Minerals (Preservision Areds 2), 2 CAP PO QAM Omeprazole (Prilosec), 20 MG PO QAM Sennosides-Docusate Sodium (Senokot S), 1 TAB PO HS [Onfi], 5 MG PO BID Scheduled PRN Acetaminophen (Tylenol), 500 MG PO Q4H PRN for Pain Alum & Mag Hydrox-Simethicone (Antacid & [place] 200-200-20 mg/5Ml), 30 ML PO Q6 PRN for Dextromethorphan Polistirex (Delsym), 10 ML PO Q12 PRN for Cough Loperamide Hcl (Imodium A-D), 4 MG PO UD PRN for Diarrhea Magnesium Hydroxide (Milk Of Magnesia), 30 ML PO UD PRN for Constipation Neomycin/Polymyx/Bacitr (Neosporin), 1 APPL TOP BID PRN for CUTS,SCRAPES, ABRASIONS Allergies Coded Allergies: Sulfamethoxazole w/Trimethoprim (Verified Allergy, Unknown, dizziness and increase in tremor, 07/18/17) Grapefruit (Verified Adverse Reaction, Unknown, INTERACTS WITH OTHER MEDS , 07/18/17) Ibuprofen (Verified Adverse Reaction, Unknown, avoids secondary to reactions with other medications, 07/18/17) Levetiracetam (Verified Adverse Reaction, Unknown, AGITATION, 5/16/18) Physical Exam Vital Signs Date Time Temp Pulse Resp B/P (MAP) Pulse Ox O2 Delivery O2 Flow Rate FiO2 07/18/17 17:52 37.3 57 19 164/61 94 Room Air 07/18/17 17:43 56 07/18/17 17:05 59 19 124/ 95 Room Air 07/18/17 15:30 54 17 110/68 100 2.0 07/18/17 13:36 95 Nasal Cannula 2.0 07/18/17 13:35 90 Room Air 07/18/17 13:22 54 07/18/17 13:17 36.7 54 19 140/51 90 Room Air Physical Exam Physical Exam GENERAL: At baseline. He does not appear distressed. ____ HENT: Exam performed. Head: Normocephalic and atraumatic. Right Ear: External ear normal. No mastoid tenderness. Left Ear: External ear normal. No mastoid tenderness. Mouth/Throat: The oropharynx is clear and moist. No trismus in the jaw. No dental abscesses or uvula swelling. No oropharyngeal exudate or tonsillar abscesses. ____ EYES: Conjunctivae and EOM are normal. Pupils are equal, round, and reactive to light. Right eye exhibits no discharge. Left eye exhibits no discharge. No scleral icterus. ____ NECK: Normal range of motion. Neck supple. No JVD present. No spinous process tenderness present. No carotid bruit present. No rigidity. No tracheal deviation and normal range of motion present. No Brudzinski's sign and no Kernig 's sign noted. ____ CV: Normal rate, regular rhythm, normal heart sounds and intact distal pulses. There is no peripheral edema. Palpable radial pulses bue. ____ PULM/CHEST: Effort normal and breath sounds normal. No respiratory distress. No stridor. He has no wheezes. He has no rales. Chest Wall: He exhibits no tenderness. ____ ABD: The abdomen is soft. Bowel sounds are normal. He has no distension. No mass is present. There is no tenderness. There is no rebound, no guarding, no Schaffer's sign and no tenderness at McBurney's point. Rovsig negative MUSC/SKEL: Normal range of motion. There is no peripheral edema, tenderness or deformity. LYMPH: No cervical adenopathy. ____ NEURO: At mental baseline. Resting tremor at baseline. He has normal strength. No cranial nerve deficit or sensory deficit. Coordination and gait normal. GCS eye subscore is 4. GCS verbal subscore is 5. GCS motor subscore is 6. Cerebellar tests wnl. ____ SKIN: Skin is warm and dry. He is not diaphoretic. ____ PSYCH: He has a normal mood and affect. His behavior is normal. Judgment and thought content normal. ____ Medical Decision & Procedures ER Provider Diagnostic Interpretation: Radiology results as stated below per my review and radiologist interpretation: HEAD CT NONCONTRAST Findings: Mild mucosal thickening within the maxillary sinuses and left ethmoid air cells. The mastoid air cells are clear. The calvarium and skull base are intact. The ventricles and sulci are within normal limits. There is no mass, hematoma, midline shift, or acute infarct. Impression: No acute intracranial abnormality. Electronically signed by: Marshall Castillo M.D. 07/18/2017 4:42 PM CHEST 2 VIEWS ROUTINE FINDINGS: Cardiac silhouette is within normal limits in size. There is no pneumothorax or pleural effusion. There are patchy alveolar opacities about the bilateral lung bases. No overt pulmonary edema. Sigmoidal scoliosis of the thoracolumbar spine. Cholecystectomy clips noted. IMPRESSION: Subsegmental patchy bibasilar alveolar opacities are suspicious for pneumonia or aspiration pneumonitis. The above report was generated using voice recognition software. It may contain grammatical, syntax or spelling errors. Electronically signed by: Yogesh Keen M.D. 07/18/2017 5:37 PM Laboratory Results 07/18/17 14:04 Red Blood Count 4.32, Mean Corpuscular Volume 92.8, Mean Corpuscular Hemoglobin 31.7, Mean Corpuscular Hemoglobin Concent 34.2, Mean Platelet Volume 9.2, Neutrophils (%) (Auto) 79.8, Lymphocytes (%) (Auto) 12.5, Monocytes (%) (Auto) 7.0, Eosinophils (%) (Auto) 0.5, Basophils (%) (Auto) 0.1, Neutrophils # (Auto) 6.96, Lymphocytes # (Auto) 1.09, Monocytes # (Auto) 0.61, Eosinophils # (Auto) 0.04, Basophils # (Auto) 0.01 07/18/17 14:04 Test 07/18/17 14:04 07/18/17 16:30 White Blood Count 8.72 K/uL (4.8-10.8) Red Blood Count 4.32 M/uL (4.7-6.1) Hemoglobin 13.7 g/dL (14.0-18.0) Hematocrit 40.1 % (42-52) Mean Corpuscular Volume 92.8 fL (80-100) Mean Corpuscular Hemoglobin 31.7 pg (25-34) Mean Corpuscular Hemoglobin Concent 34.2 g/dl (32-36) Platelet Count 167 K/uL (130-400) Mean Platelet Volume 9.2 fL (7.4-10.4) Neutrophils (%) (Auto) 79.8 % Lymphocytes (%) (Auto) 12.5 % Monocytes (%) (Auto) 7.0 % Eosinophils (%) (Auto) 0.5 % Basophils (%) (Auto) 0.1 % Neutrophils # (Auto) 6.96 K/uL (1.4-6.5) Lymphocytes # (Auto) 1.09 K/uL (1.2-3.4) Monocytes # (Auto) 0.61 K/uL (0.11-0.59) Eosinophils # (Auto) 0.04 K/uL (0-0.5) Basophils # (Auto) 0.01 K/uL (0-0.2) RDW Standard Deviation 45.5 fL (36.4-46.3) RDW Coefficient of Variation 13.4 % (11.5-14.5) Immature Granulocyte % (Auto) 0.1 % Immature Granulocyte # (Auto) 0.01 K/uL (0.00-0.02) Prothrombin Time 10.8 SECONDS (9.0-12.0) Prothromb Time International Ratio 1.0 (0.9-1.1) Activated Partial Thromboplast Time 40.8 SECONDS (21.0-31.0) Partial Thromboplastin Ratio 1.6 Anion Gap 4.0 mmol/L (3-11) Est Creatinine Clear Calc Drug Dose 90.9 ml/min Estimated GFR () 106.9 Estimated GFR (Non- 92.2 BUN/Creatinine Ratio 15.0 (10-20) Lactic Acid Level 0.9 mmol/L (0.4-2.0) Calcium Level 8.5 mg/dl (8.5-10.1) Magnesium Level 2.1 mg/dl (1.8-2.4) Total Bilirubin 0.7 mg/dl (0.2-1) Direct Bilirubin 0.2 mg/dl (0-0.2) Aspartate Amino Transf (AST/SGOT) 13 U/L (15-37) Alanine Aminotransferase (ALT/SGPT) 19 U/L (12-78) Alkaline Phosphatase 135 U/L (45-117) Ammonia < 10.0 umol/L (11-32) Total Protein 6.9 gm/dl (6.4-8.2) Albumin 3.7 gm/dl (3.4-5.0) Lipase 113 U/L (73-393) Urine Color DK YELLOW Urine Appearance CLEAR (CLEAR) Urine pH 5.5 (4.5-7.5) Urine Specific [place] 1.036 (1.000-1.030) Urine Protein 1+ (NEG) Urine Glucose (UA) NEG (NEG) Urine Ketones 1+ (NEG) Urine Occult Blood NEG (NEG) Urine Nitrite NEG (NEG) Urine Bilirubin NEG (NEG) Urine Urobilinogen NEG (NEG) Urine Leukocyte Esterase TRACE (NEG) Urine WBC (Auto) 1-5 /hpf (0-5) Urine RBC (Auto) 0-4 /hpf (0-4) Urine Hyaline Casts (Auto) 1-5 /lpf (0-5) Urine Epithelial Cells (Auto) 10-20 /lpf (0-5) Urine Bacteria (Auto) NEG (NEG) Laboratory results reviewed by me Medications Administered Medications (Trade) Dose Ordered Sig/Hugh Route Start Time Stop Time Status Last Admin Dose Admin Sodium Chloride 1,000 ml @ 999 mls/hr Q1H1M STAT IV 07/18/17 13:38 07/18/17 14:38 DC 07/18/17 13:55 999 MLS/HR ECG Per My Interpretation Indication: vomiting Rate (beats per minute): 60 Rhythm: sinus rhythm Findings: other (GA, QTC and QRS intervals within normal limits. No ST elevation or depression. Baseline wander/artifact consistent with tremor.) ED Course 5857: The patient was evaluated in room B6. A complete history and physical exam was performed. 1338: Ordered Sodium Chloride 1000 ml @ 999 mls/hr IV. 1752: Dr. Saleh will evaluate the patient in the ED. 1805: The patient's vital signs are stable now. On arrival, patient's oxygen saturations were in the 90's and he was placed on oxygen. No labored breathing, wheezing or retractions. Later removed from O2 and has good oxygen saturations. Caregiver states patient has not urinated in 24 hours. Bladder scan performed on arrival showed a decompressed bladder. Straight cath attempted, but no urine was collected. Patient was given IV fluids. S/p IV fluid administration, urine was obtained and was concerning for infection. Labs within normal limits. Given low oxygen saturation on presentation, x-ray findings concerning for aspiration pneumonia, and family's difficulty with managing the patient, the patient will be admitted to the hospital. Dr. Saleh agrees to this. Patient was given Unasyn for aspiration pneumonia. 1815: Ordered Ampicillin Sodium/Sulbactam Sodium 3000 mg/Sodium Chloride 108 ml @ 200 mls/hr IV. Medical Decision The patient's vital signs are stable now. On arrival, patient's oxygen saturations were in the 90's and he was placed on oxygen. No labored breathing, wheezing or retractions. Later removed from O2 and has good oxygen saturations. Caregiver states patient has not urinated in 24 hours. Bladder scan performed on arrival showed a decompressed bladder. Straight cath attempted, but no urine was collected. Patient was given IV fluids. S/p IV fluid administration, urine was obtained and was concerning for infection. Labs within normal limits. Given low oxygen saturation on presentation, x-ray findings concerning for aspiration pneumonia, and family's difficulty with managing the patient, the patient will be admitted to the hospital. Dr. Saleh agrees to this. Patient was given Unasyn for aspiration pneumonia. Medication Reconcilliation Current Medication List: was personally reviewed by me Blood Pressure Screening Patient's blood pressure: Normal blood pressure Blood pressure disposition: Did not require urgent referral Consults Time Called: 1745 Consulting Physician: Dr. Saleh - [facility] Hospitalist Returned Call: 1752 Discussed the patient's case. Dr. Saleh will evaluate the patient in the ED. 1800: Discussed the patient's case. The patient will be evaluated for further treatment and disposition. Impression Primary Impression: Aspiration pneumonia Scribe Attestation The scribe's documentation has been prepared under my direction and personally reviewed by me in its entirety. I confirm that the note above accurately reflects all work, treatment, procedures, and medical decision making performed by me. Departure Information Dispostion Being Evaluated By Hospitalist Referrals Jose Juan Brady M.D. (PCP) Patient Instructions My [facility] Problem Qualifiers Primary Impression: Aspiration pneumonia Aspiration pneumonia type: unspecified Laterality: unspecified laterality Lung location: unspecified part of lung Qualified Codes: J69.0 - Pneumonitis due to inhalation of food and vomit
[2017-07-18] MEDS ORDERED: AMPICILLIN/SULBACTAM SOD INJ 3,000 MG in SODIUM CHLORIDE 0.9% 100ML 100 ML IV ONE (18:15)
--- NOTE | 2017-07-18 18:33 | History and Physical ---
History & Physical Date & Time of Service: July 18, 2017 at 18:06 Chief Complaint: Altered Mental Status Primary Care Physician: Jose Juan Brday M.D. History of Present Illness Source: patient, caregiver, hospital records 51 y/o M Hx severe epilepsy, chronic ataxia, intellectual impairment, TBI, aspiration PNM. The pt is brought to the ER by a caregiver at his [facility] for nausea, vomiting and decreased urine output. He has apparently been vomiting since waking up AM. Staff at the [facility] reported bilious vomiting which was severe, leading to bouts of coughing and at one point coming out of his nose. The pt was admitted following a similar episode 05/2017, although his mental status was considerably worse at that time. During the previous admission he was treated for aspiration PNM which was suspected due to vomiting. On arrival to the ER, he was mildly hypoxic. Initial imaging is consistent with BL PNM - likely aspiration PNM or pneumonitis. Due to his lack of urine output, a bladder scan was obtained and revealed an empty bladder. His urine output resumed after a few litres of fluid. The pt is not able to contribute to the HPI and all preceding information is obtained from his caregiver. It is noted that the pt recently required surgical debridement of a finger wound on his R hand and was placed on a course of Keflex following. He completed a final dose the prior evening. Past Medical/Surgical History 1) Intellectual impairment 2) Refractory epilepsy 3) History of TBI 4) Ataxia 5) Tremor 6) Aspiration PNM Family History Heart disease Hypertension Kidney disease Social History Smoking Status: Never Smoker Drug Use: none Marital Status: single Housing status: other Occupational Status: disabled Immunizations History of Influenza Vaccine: N/A Influenza Vaccine Date: Nov 03, 2009 History of Tetanus Vaccine?: Yes Tetanus Immunization Date: Jun 04, 2007 History of Pneumococcal: No History of Hepatitis B Vaccine: Unknown Hepatitis Immunization Date: Jun 04, 2007 Allergies Coded Allergies: Sulfamethoxazole w/Trimethoprim (Verified Allergy, Unknown, dizziness and increase in tremor, 07/18/17) Grapefruit (Verified Adverse Reaction, Unknown, INTERACTS WITH OTHER MEDS , 07/18/17) Ibuprofen (Verified Adverse Reaction, Unknown, avoids secondary to reactions with other medications, 07/18/17) Levetiracetam (Verified Adverse Reaction, Unknown, AGITATION, 07/18/17) Home Medications Scheduled Buspirone Hcl (Buspar), 15 MG PO QAM Buspirone Hcl (Buspar), 30 MG PO HS Carbamide Peroxide (Otic) (Carbamide Peroxide), 5-10 DROPS OT BID Docusate Sodium (Colace), 100 MG PO BID Felbamate (Felbamate), 600 MG PO BID Fluoxetine Hcl (Prozac), 20 MG PO DAILY Gabapentin (Neurontin), 100 MG PO TID Lacosamide (Vimpat), 200 MG PO BID Lamotrigine (Lamotrigine Er), 300 MG PO BID Lamotrigine (Lamictal Xr), 50 MG PO BID Multiple Vitamins W/ Minerals (Preservision Areds 2), 2 CAP PO QAM Omeprazole (Prilosec), 20 MG PO QAM Sennosides-Docusate Sodium (Senokot S), 1 TAB PO HS [Onfi], 5 MG PO BID Scheduled PRN Acetaminophen (Tylenol), 500 MG PO Q4H PRN for Pain Alum & Mag Hydrox-Simethicone (Antacid & [place]igas 200-200-20 mg/5Ml), 30 ML PO Q6 PRN for Dextromethorphan Polistirex (Delsym), 10 ML PO Q12 PRN for Cough Loperamide Hcl (Imodium A-D), 4 MG PO UD PRN for Diarrhea Magnesium Hydroxide (Milk Of Magnesia), 30 ML PO UD PRN for Constipation Neomycin/Polymyx/Bacitr (Neosporin), 1 APPL TOP BID PRN for CUTS,SCRAPES, ABRASIONS Review of Systems Cannot obtain from pt - brought to hospital primarily for vomiting Physical Exam Vital Signs Date Time Temp Pulse Resp B/P (MAP) Pulse Ox O2 Delivery O2 Flow Rate FiO2 07/18/17 17:43 56 07/18/17 17:05 59 19 124/ 95 Room Air 07/18/17 15:30 54 17 110/68 100 2.0 07/18/17 13:36 95 Nasal Cannula 2.0 07/18/17 13:35 90 Room Air 07/18/17 13:22 54 07/18/17 13:17 36.7 54 19 140/51 90 Room Air General Appearance: + pertinent finding Head: normocephalic Eyes: normal inspection ENT: normal ENT inspection, pharynx normal Neck: supple, no JVD Respiratory/Chest: + pertinent finding (Crackles audible on L, reduced air at R base) Cardiovascular: regular rate, rhythm, no edema, no gallop Abdomen/GI: normal bowel sounds, non tender, soft Back: normal inspection, no CVA tenderness Extremities/Musculoskelatal: normal inspection Neurologic/Psych: + pertinent finding (Tremors - cannot comply with extensive exam - at baseline per caregiver at bedside) Skin: normal color, + pertinent finding (A few sutures present on R hand) Diagnostics Laboratory Results Results Past 24 Hours Test 07/18/17 14:04 07/18/17 16:30 Range/Units White Blood Count 8.72 4.8-10.8 K/uL Red Blood Count 4.32 4.7-6.1 M/uL Hemoglobin 13.7 14.0-18.0 g/dL Hematocrit 40.1 42-52 % Mean Corpuscular Volume 92.8 80-100 fL Mean Corpuscular Hemoglobin 31.7 25-34 pg Mean Corpuscular Hemoglobin Concent 34.2 32-36 g/dl Platelet Count 167 130-400 K/uL Mean Platelet Volume 9.2 7.4-10.4 fL Neutrophils (%) (Auto) 79.8 % Lymphocytes (%) (Auto) 12.5 % Monocytes (%) (Auto) 7.0 % Eosinophils (%) (Auto) 0.5 % Basophils (%) (Auto) 0.1 % Neutrophils # (Auto) 6.96 1.4-6.5 K/uL Lymphocytes # (Auto) 1.09 1.2-3.4 K/uL Monocytes # (Auto) 0.61 0.11-0.59 K/uL Eosinophils # (Auto) 0.04 0-0.5 K/uL Basophils # (Auto) 0.01 0-0.2 K/uL RDW Standard Deviation 45.5 36.4-46.3 fL RDW Coefficient of Variation 13.4 11.5-14.5 % Immature Granulocyte % (Auto) 0.1 % Immature Granulocyte # (Auto) 0.01 0.00-0.02 K/uL Prothrombin Time 10.8 9.0-12.0 SECONDS Prothromb Time International Ratio 1.0 0.9-1.1 Activated Partial Thromboplast Time 40.8 21.0-31.0 SECONDS Partial Thromboplastin Ratio 1.6 Sodium Level 141 136-145 mmol/L Potassium Level 3.7 3.5-5.1 mmol/L Chloride Level 106 98-107 mmol/L Carbon Dioxide Level 31 21-32 mmol/L Anion Gap 4.0 3-11 mmol/L Blood Urea Nitrogen 14 7-18 mg/dl Creatinine 0.94 0.60-1.40 mg/dl Est Creatinine Clear Calc Drug Dose 90.9 ml/min Estimated GFR () 106.9 Estimated GFR (Non- 92.2 BUN/Creatinine Ratio 15.0 10-20 Random Glucose 98 70-99 mg/dl Lactic Acid Level 0.9 0.4-2.0 mmol/L Calcium Level 8.5 8.5-10.1 mg/dl Magnesium Level 2.1 1.8-2.4 mg/dl Total Bilirubin 0.7 0.2-1 mg/dl Direct Bilirubin 0.2 0-0.2 mg/dl Aspartate Amino Transf (AST/SGOT) 13 15-37 U/L Alanine Aminotransferase (ALT/SGPT) 19 12-78 U/L Alkaline Phosphatase 135 45-117 U/L Ammonia < 10.0 11-32 umol/L Total Protein 6.9 6.4-8.2 gm/dl Albumin 3.7 3.4-5.0 gm/dl Lipase 113 73-393 U/L Urine Color DK YELLOW Urine Appearance CLEAR CLEAR Urine pH 5.5 4.5-7.5 Urine Specific [place] 1.036 1.000-1.030 Urine Protein 1+ NEG Urine Glucose (UA) NEG NEG Urine Ketones 1+ NEG Urine Occult Blood NEG NEG Urine Nitrite NEG NEG Urine Bilirubin NEG NEG Urine Urobilinogen NEG NEG Urine Leukocyte Esterase TRACE NEG Urine WBC (Auto) 1-5 0-5 /hpf Urine RBC (Auto) 0-4 0-4 /hpf Urine Hyaline Casts (Auto) 1-5 0-5 /lpf Urine Epithelial Cells (Auto) 10-20 0-5 /lpf Urine Bacteria (Auto) NEG NEG Impression Assessment and Plan 51 y/o M Hx severe epilepsy, chronic ataxia, intellectual impairment, TBI, aspiration PNM. The pt is brought to the ER by a caregiver at his [facility] for nausea, vomiting and decreased urine output. He has apparently been vomiting since waking up AM. Staff at the [facility] reported bilious vomiting which was severe, leading to bouts of coughing and at one point coming out of his nose. The pt was admitted following a similar episode 05/2017, although his mental status was considerably worse at that time. During the previous admission he was treated for aspiration PNM which was suspected due to vomiting. On arrival to the ER, he was mildly hypoxic. Initial imaging is consistent with BL PNM - likely aspiration PNM or pneumonitis. 1) Nausea and vomiting - this would be the primary reason for admission as he may suffer significant consequences if he is unable to resume his medications. IVF and antiemetics will be provided. We will keep him NPO excepting water overnight. 2) Aspiration - There is no clear evidence of PNM although there is clearly at least pneumonitis. We have placed him on Unasyn and will repeat a CXR AM. Consider expanding coverage to aspiration in a health care setting if he repeatedly desaturates or spikes fevers. 3) Seizure disorder - placed on precautions. Can resume Vimpat, Lamotrigine, Felbamate, Aura 4) Pt will be placed on a one to one as he is agitated at the tme of admission and represents a fall risk. Full code - SCDs Total time for this admit including review of labs, meds, imaging, records - discussion with pt and ER attending - 40 min Resuscitation Status VTE Prophylaxis Will order VTE Prophylaxis: Yes
[2017-07-18] MEDS ORDERED: ALBUT/IPRATROP 3MG/0.5MG NEB 3 ML VIAL INH PRN (18:45)
[2017-07-18] MEDS ORDERED: LORAZEPAM 2 MG/ML 1 ML VIAL IV PRN (18:45)
[2017-07-18] MEDS ORDERED: LOPERAMIDE HCL 2 MG CAP PO PRN (18:45)
--- NOTE | 2017-07-18 18:46 | Procedure Note ---
Procedure Note Date of Service July 18, 2017. Procedure Note Patient was identified by name. Caregiver and father was in the room. Two sutures in the right 2nd digit were removed above the nail. One of the suture had extended into the nail bed. There was minimal bleeding. The area was cleaned with alcohol and placed in a Band Aid. Supervised by Dr. Dai. Resident Involvement: Resident Care Provided Care Provided: Adult ED
[2017-07-18 19:28] LABS: CALCIUM 8.7 mg/dl (8.5-10.1); CREATININE 0.86 mg/dl (0.60-1.40); POTASSIUM 3.6 mmol/L (3.5-5.1)
[2017-07-18] MEDS ORDERED: LORAZEPAM INJ 2 MG in SYRINGE 1 ML IV PRN (20:15)
[2017-07-18 20:31] VITALS: BP 123/70; PULSE 55; TEMP 36.9; O2SAT 98; BMI 23.7
[2017-07-18] MEDS: D5NSS + 20MEQ KCL 1,000 ML IV SCH (21:01)
[2017-07-18] MEDS: CARBAMIDE PEROXIDE 6.5% 15 ML BTL OT SCH (21:06)
[2017-07-18] MEDS: DOCUSATE SODIUM 100 MG CAP PO SCH (21:07)
[2017-07-18] MEDS: GABAPENTIN 100 MG CAP PO SCH (21:07)
[2017-07-18] MEDS: DOCUSATE SODIUM/SENNA 50/8.6MG TAB PO SCH (21:08)
[2017-07-18] MEDS: BusPIRone 15 MG TAB PO SCH (21:08)
[2017-07-18] MEDS: LACOSAMIDE 50 MG TAB PO SCH (21:09)
[2017-07-18 23:03] VITALS: BP 139/72; PULSE 69; TEMP 36.9; O2SAT 95
[2017-07-19] MEDS: AMPICILLIN/SULBACTAM SOD INJ 3,000 MG in SODIUM CHLORIDE 0.9% 100ML 100 ML IV SCH ×4 (00:09→17:32)
[2017-07-19] MEDS: D5NSS + 20MEQ KCL 1,000 ML IV SCH (05:19)
--- NOTE | 2017-07-19 07:01 | DIAGNOSTIC IMAGING REPORT ---
CHEST ONE VIEW PORTABLE CLINICAL HISTORY: 52 years-old Male presenting with PNM. TECHNIQUE: Portable upright AP view of the chest was obtained. COMPARISON: 07/18/2017. FINDINGS: Cardiomediastinal silhouette normal. Minimal bibasilar opacities greater on the left. These are fairly stable from prior. There may also be a pulmonary nodule at the left lung base. No large effusion or pneumothorax. Dextroscoliotic curvature of the thoracic spine. Upper abdomen normal. IMPRESSION: 1. Persistent minimal bibasilar opacities. No significant change. 2. Possible 11 mm left basilar pulmonary nodule. Chest CT is recommended for further evaluation. Electronically signed by: John Chavez M.D. 07/19/2017 7:00 AM Dictated Date/Time: 07/19/2017 6:58 AM
[2017-07-19 07:09] VITALS: BP 122/71; PULSE 48; TEMP 36.6; O2SAT 96
--- NOTE | 2017-07-19 08:47 | Hospitalist Progress Note ---
Hospitalist Progress Note Date of Service July 19, 2017. (Kendra Griffin PA-C) Subjective Pt evaluation today including: conversation w/ patient, conversation w/ family (Mother), physical exam, chart review, lab review, review of studies Pain: None PO Intake: NPO except water Voiding: no voiding problems The patient was seen and examined this morning. Pt reports doing better today. His mother present at bedside. He denies any nausea/vomiting, diarrhea or constipation, no urinary issues. He has some mild abdominal pain with palpation in the LLQ but denies acute pain. No fever, chills or sweats. Pt feels his appetite has been poor recently but willing to try po intake. He has not been out of bed yet today. ROS: 6 point ROS reviewed as above, otherwise negative. (Kendra Griffin, MICHELLE) Objective Vital Signs Date Time Temp Pulse Resp B/P (MAP) Pulse Ox O2 Delivery O2 Flow Rate FiO2 07/19/17 07:09 36.6 48 20 122/71 (88) 96 Room Air 07/19/17 06:05 Room Air 07/18/17 23:59 Room Air 07/18/17 23:03 36.9 69 18 139/72 (94) 95 Room Air 07/18/17 20:31 36.9 55 18 123/70 98 Room Air 07/18/17 19:43 55 18 142/67 92 07/18/17 17:52 37.3 57 19 164/61 94 Room Air 07/18/17 17:43 56 07/18/17 17:05 59 19 124/ 95 Room Air 07/18/17 15:30 54 17 110/68 100 2.0 07/18/17 13:36 95 Nasal Cannula 2.0 07/18/17 13:35 90 Room Air 07/18/17 13:22 54 07/18/17 13:17 36.7 54 19 140/51 90 Room Air (Kendra Griffin PA-C) Physical Exam General Appearance: WD/WN, no apparent distress, + pertinent finding (full body fine tremor intermittently) Eyes: PERRL, EOMI ENT: hearing grossly normal, pharynx normal, + pertinent finding (MMM) Neck: supple, no JVD Respiratory/Chest: chest non-tender, lungs clear, no respiratory distress, no accessory muscle use, + pertinent finding (on RA) Cardiovascular: regular rate, rhythm, no murmur Abdomen: normal bowel sounds, non tender, soft Extremities: non-tender, no pedal edema, no calf tenderness Neurologic/Psychiatric: alert, normal mood/affect, oriented x 3 Skin: normal color, warm/dry (Kendra Griffin PA-C) Laboratory Results Last 24 Hours Test 07/18/17 14:04 07/18/17 16:30 07/18/17 18:59 White Blood Count 8.72 K/uL Red Blood Count 4.32 M/uL Hemoglobin 13.7 g/dL Hematocrit 40.1 % Mean Corpuscular Volume 92.8 fL Mean Corpuscular Hemoglobin 31.7 pg Mean Corpuscular Hemoglobin Concent 34.2 g/dl Platelet Count 167 K/uL Mean Platelet Volume 9.2 fL Neutrophils (%) (Auto) 79.8 % Lymphocytes (%) (Auto) 12.5 % Monocytes (%) (Auto) 7.0 % Eosinophils (%) (Auto) 0.5 % Basophils (%) (Auto) 0.1 % Neutrophils # (Auto) 6.96 K/uL Lymphocytes # (Auto) 1.09 K/uL Monocytes # (Auto) 0.61 K/uL Eosinophils # (Auto) 0.04 K/uL Basophils # (Auto) 0.01 K/uL RDW Standard Deviation 45.5 fL RDW Coefficient of Variation 13.4 % Immature Granulocyte % (Auto) 0.1 % Immature Granulocyte # (Auto) 0.01 K/uL Prothrombin Time 10.8 SECONDS Prothromb Time International Ratio 1.0 Activated Partial Thromboplast Time 40.8 SECONDS Partial Thromboplastin Ratio 1.6 Sodium Level 141 mmol/L 142 mmol/L Potassium Level 3.7 mmol/L 3.6 mmol/L Chloride Level 106 mmol/L 107 mmol/L Carbon Dioxide Level 31 mmol/L 31 mmol/L Anion Gap 4.0 mmol/L 4.0 mmol/L Blood Urea Nitrogen 14 mg/dl 13 mg/dl Creatinine 0.94 mg/dl 0.86 mg/dl Est Creatinine Clear Calc Drug Dose 90.9 ml/min 99.4 ml/min Estimated GFR () 106.9 114.7 Estimated GFR (Non- 92.2 99.0 BUN/Creatinine Ratio 15.0 15.3 Random Glucose 98 mg/dl 89 mg/dl Lactic Acid Level 0.9 mmol/L Calcium Level 8.5 mg/dl 8.7 mg/dl Magnesium Level 2.1 mg/dl 1.9 mg/dl Total Bilirubin 0.7 mg/dl Direct Bilirubin 0.2 mg/dl Aspartate Amino Transf (AST/SGOT) 13 U/L Alanine Aminotransferase (ALT/SGPT) 19 U/L Alkaline Phosphatase 135 U/L Ammonia < 10.0 umol/L Total Protein 6.9 gm/dl Albumin 3.7 gm/dl Lipase 113 U/L Urine Color DK YELLOW Urine Appearance CLEAR Urine pH 5.5 Urine Specific [place] 1.036 Urine Protein 1+ Urine Glucose (UA) NEG Urine Ketones 1+ Urine Occult Blood NEG Urine Nitrite NEG Urine Bilirubin NEG Urine Urobilinogen NEG Urine Leukocyte Esterase TRACE Urine WBC (Auto) 1-5 /hpf Urine RBC (Auto) 0-4 /hpf Urine Hyaline Casts (Auto) 1-5 /lpf Urine Epithelial Cells (Auto) 10-20 /lpf Urine Bacteria (Auto) NEG (Kendra Griffin, MICHELLE) Assessment and Plan 51 y/o M Hx severe epilepsy, chronic ataxia, intellectual impairment, TBI, aspiration PNM. The pt is brought to the ER by a caregiver at his longterm for nausea, vomiting and decreased urine output. He has apparently been vomiting since waking up AM. Staff at the longterm reported bilious vomiting which was severe, leading to bouts of coughing and at one point coming out of his nose. The pt was admitted following a similar episode 05/2017, although his mental status was considerably worse at that time. During the previous admission he was treated for aspiration PNM which was suspected due to vomiting. On arrival to the ER, he was mildly hypoxic. Initial imaging is consistent with BL PNM - likely aspiration PNM or pneumonitis. Nausea and vomiting Dehydration Concern for aspiration pneumonia - N/V and inability to tolerate PO intake would pose significant consequences if he is unable to resume his medications - thus admission. - IVF and antiemetics provided overnight, continue fluids for now - Will allow a diet today with aspiration precautions, assistance with feeds at this time d/ t tremor. If does well with PO intake then dc fluids. - Labs wnl at time of admission, will follow with am labs tomorrow including LFTs as AST is slightly elevated - however this is likely due to n/v Aspiration- concern for asp pneumonia, Known silent aspirator from previous admission Pneumonitis - There is no clear evidence of PNM on CXR - Cont Unasyn (started 07/18) - Repeat CXR reviewed- appears fairly stable this morning - Persistent minimal bibasilar opacities. Possible 11 mm left basilar pulmonary nodule. May need CT follow up as outpt. - For now no spiking fevers, tolerating RA with adequate O2 sats. Seizure disorder - placed on precautions. - Can resume Vimpat, Lamotrigine, Felbamate, Gabapentin - lamotrigine ER not available in house, use 300 mg immediate release per pharmacy until brought from the longterm Intellectual disability - Pt will be placed on a one to one as he is agitated at the time of admission and represents a fall risk. DVT ppx: SCDs Code: Full code Disposition: From longterm, PT/OT evals. (Kendra Griffin, MICHELLE) PA Physician Supervision Note: I interviewed and examined the patient. Discussed with Kendra Griffin PAC and agree with findings and plan as documented in the note. Any exceptions or clarifications are listed here: None Patient is lethargic but does respond to name this appears to be metabolic encephalopathy from aspiration pneumonia present on admission history of with intravenous Unasyn therapy at this time will wait for his encephalopathy to clear before considering returning him to his longterm Temp 36 6 pulse is low at 48 respiration rate 20 BP 122/61 physical exam shows him to be bradycardic but regular his lungs are with decreased effort and poor response to requests to take a deep breath no focal air loss Metabolic encephalopathy and aspiration pneumonia present on admission continue intravenous antibiotic therapy and supportive care for his previous seizure disorder he has not exhibited any additional nausea and vomiting since admission Documented By: Dexter Moser (Dexter Moser M.D.)
[2017-07-19] MEDS: GABAPENTIN 100 MG CAP PO SCH ×3 (09:02→20:32)
[2017-07-19] MEDS: CARBAMIDE PEROXIDE 6.5% 15 ML BTL OT SCH ×2 (09:02→20:28)
[2017-07-19] MEDS: BusPIRone 15 MG TAB PO SCH ×2 (09:03→20:35)
[2017-07-19] MEDS: LACOSAMIDE 50 MG TAB PO SCH ×2 (09:03→20:34)
[2017-07-19] MEDS: PANTOprazole SOD 40 MG TAB PO SCH (09:03)
[2017-07-19] MEDS: FLUOXETINE HCL 20 MG CAP PO SCH (09:03)
[2017-07-19] MEDS: DOCUSATE SODIUM 100 MG CAP PO SCH ×2 (09:19→20:30)
[2017-07-19] MEDS ORDERED: NURSING VERBAL MED ORDER ONE (10:30)
[2017-07-19] MEDS ORDERED: LAMOTRIGINE 100 MG PO ONE (11:30)
[2017-07-19] MEDS: CLOBAZAM 10 MG PO SCH ×2 (11:54→20:32)
[2017-07-19] MEDS: FELBAMATE 600 MG PO SCH ×2 (11:56→20:33)
[2017-07-19 15:00] VITALS: BP 127/74; PULSE 54; TEMP 36.6; O2SAT 93
[2017-07-19 15:26] VITALS: Ht 175.3 cm; Wt 72.7 kg
[2017-07-19 16:00] VITALS: O2SAT 93
[2017-07-19] MEDS: DOCUSATE SODIUM/SENNA 50/8.6MG TAB PO SCH (20:35)
[2017-07-19 23:39] VITALS: BP 116/65; PULSE 56; TEMP 36.4; O2SAT 96
[2017-07-20] MEDS: AMPICILLIN/SULBACTAM SOD INJ 3,000 MG in SODIUM CHLORIDE 0.9% 100ML 100 ML IV SCH ×5 (00:08→23:40)
[2017-07-20 07:02] VITALS: BP 121/77; PULSE 54; TEMP 36.7; O2SAT 96
[2017-07-20 07:38] LABS: HEMATOCRIT 37.1 % (42-52); HEMOGLOBIN 12.8 g/dL (14.0-18.0); MEAN CELL VOLUME 92.1 fL (80-100); MEAN CORPUSCULAR HEMOGLOBIN 31.8 pg (25-34); MEAN CORPUSCULAR HGB CONC 34.5 g/dl (32-36); MEAN PLATELET VOLUME 8.4 fL (7.4-10.4); PLATELET COUNT 125 K/uL (130-400); RED CELL DISTRIBUTION WIDTH CV 13.3 % (11.5-14.5); WHITE BLOOD COUNT 3.91 K/uL (4.8-10.8)
[2017-07-20] MEDS: BusPIRone 15 MG TAB PO SCH ×2 (07:57→20:27)
[2017-07-20] MEDS: CARBAMIDE PEROXIDE 6.5% 15 ML BTL OT SCH ×2 (07:57→20:31)
[2017-07-20] MEDS: LACOSAMIDE 50 MG TAB PO SCH ×2 (07:58→20:29)
[2017-07-20] MEDS: DOCUSATE SODIUM 100 MG CAP PO SCH ×2 (08:00→20:27)
[2017-07-20] MEDS: PANTOprazole SOD 40 MG TAB PO SCH (08:00)
[2017-07-20] MEDS: FLUOXETINE HCL 20 MG CAP PO SCH (08:00)
[2017-07-20] MEDS: GABAPENTIN 100 MG CAP PO SCH ×3 (08:01→20:24)
[2017-07-20 08:08] LABS: ALBUMIN 3.3 gm/dl (3.4-5.0); CALCIUM 8.4 mg/dl (8.5-10.1); CREATININE 0.76 mg/dl (0.60-1.40); POTASSIUM 3.5 mmol/L (3.5-5.1); TOTAL PROTEIN 6.1 gm/dl (6.4-8.2)
[2017-07-20] MEDS: CLOBAZAM 10 MG PO SCH ×2 (08:59→20:53)
[2017-07-20] MEDS: FELBAMATE 600 MG PO SCH ×2 (09:00→20:53)
--- NOTE | 2017-07-20 13:44 | Hospitalist Progress Note ---
Hospitalist Progress Note Date of Service July 20, 2017. (Rocio Moon ., PA-C) Subjective Pt evaluation today including: conversation w/ patient, conversation w/ family (mother at bedside), physical exam, chart review, lab review, review of inpatient medication list Pain: None PO Intake: Tolerating PO diet Voiding: voiding difficulty (decreased urinary output) Patient reports feeling well and is more alert today per mother who is at bedside. The patient denies any acute complaints at this time. Per mother, the patient has decreased urinary output. The patient denies fevers, chills, sweats, chest pain, palpitations, claudication, cough, wheezing, shortness of breath, nausea, vomiting, abdominal pain, dysuria, hematuria, urinary retention , paralysis, weakness, numbness and tingling. Additional Comments: See HPI for pertinent positives and negatives. All other systems reviewed and negative. (Rocio Moon, PA-C) Objective Vital Signs Date Time Temp Pulse Resp B/P (MAP) Pulse Ox O2 Delivery O2 Flow Rate FiO2 07/20/17 07:02 36.7 54 18 121/77 (92) 96 Room Air 07/19/17 23:59 Room Air 07/19/17 23:39 36.4 56 16 116/65 (82) 96 Room Air 07/19/17 16:00 93 Room Air 07/19/17 15:00 36.6 54 18 127/74 (91) 93 Room Air (Rocio Moon ., PA-C) Physical Exam Notes: General appearance: Well-developed, well-nourished, no apparent distress Head: Normocephalic, atraumatic Eyes: Normal inspection, PERRL, EOMI ENT: Normal ENT inspection, hearing grossly normal, pharynx normal Neck: Supple, no JVD, trachea midline Respiratory/Chest: +Limited exam due to poor respiratory effort, pt does not take deep breaths when instructed to. Lungs clear to auscultation, normal breath sounds, no respiratory distress Cardiovascular: Regular rate & rhythm, no gallop, no murmur Abdomen/GI: Normal bowel sounds, non-tender, soft Extremities/Musculoskeletal: Normal inspection, no calf tenderness, no pedal edema Neurological/Psych: +Diffuse body tremor. Alert, normal mood/affect Skin: Normal color, warm/dry, no rash (Rocio Moon ., PA-C) Laboratory Results Last 24 Hours Test 07/20/17 07:13 White Blood Count 3.91 K/uL Red Blood Count 4.03 M/uL Hemoglobin 12.8 g/dL Hematocrit 37.1 % Mean Corpuscular Volume 92.1 fL Mean Corpuscular Hemoglobin 31.8 pg Mean Corpuscular Hemoglobin Concent 34.5 g/dl RDW Standard Deviation 45.0 fL RDW Coefficient of Variation 13.3 % Platelet Count 125 K/uL Mean Platelet Volume 8.4 fL Sodium Level 143 mmol/L Potassium Level 3.5 mmol/L Chloride Level 108 mmol/L Carbon Dioxide Level 31 mmol/L Anion Gap 5.0 mmol/L Blood Urea Nitrogen 7 mg/dl Creatinine 0.76 mg/dl Est Creatinine Clear Calc Drug Dose 112.5 ml/min Estimated GFR () 120.7 Estimated GFR (Non- 104.2 BUN/Creatinine Ratio 9.6 Random Glucose 86 mg/dl Calcium Level 8.4 mg/dl Total Bilirubin 0.5 mg/dl Direct Bilirubin 0.2 mg/dl Aspartate Amino Transf (AST/SGOT) 11 U/L Alanine Aminotransferase (ALT/SGPT) 16 U/L Alkaline Phosphatase 104 U/L Total Protein 6.1 gm/dl Albumin 3.3 gm/dl (Rocio Moon ., JESSIKA-C) Assessment and Plan 51 y/o male with a history of aspiration, severe epilepsy, chronic ataxia, intellectual impairment, and TBI who [facility] from his [facility] with nausea, vomiting and decreased urinary output. Nausea, vomiting, concern for aspiration PNA/pneumonitis with metabolic encephalopathy--improving -Admit to med/surg -No clear PNA on CXR, but patient has known history of aspiration w/previous aspiration PNA. CXR w/possible 11 mm left base pulmonary nodule, consider f/u chest CT -Diet w/aspiration precautions. Tolerating diet -Continue Zosyn, day #3 -AVSS, remains on room air -More alert today, encephalopathy improving/resolving -Urine culture pending -LFTs trending down Decrease urinary output--ongoing -Will hydrate further with NSS at 100 cc/hr x 1L -Monitor I's & O's Seizure disorder--stable -Seizure precautions -Continue Vimpat, lamotrigine, felbamate, gabapentin Intellectual disability - Pt on 1:1 due to agitation DVT prophylaxis -SCDs Code Status -Level I, FULL RESUSCITATION STATUS Dispo -From [facility]ci (Rocio Moon ., PA-C) PA Physician Supervision Note: I interviewed and examined the patient. Discussed with Rocio Moon PAC and agree with findings and plan as documented in the note. Any exceptions or clarifications are listed here: None The patient is much more awake and alert he is tremulous his mom and sister at the bedside he is improved dramatically treating his metabolic encephalopathy with antibiotics and it may well be more urinary source and pulmonary but we do have a culture back yet Vital signs are stable Lung exam is diminished she is poor effort he has got some rhonchi Continue IV antibiotic therapy PTOT evaluation consideration of returning to his [facility] when medically stable mostly taking his meds and oral intake adequately Documented By: Dexter Moser (Dexter Moser M.D.)
[2017-07-20] MEDS ORDERED: SODIUM CHLORIDE 0.9% 1000ML 1,000 ML IV SCH (13:45)
[2017-07-20 15:08] VITALS: BP 137/72; PULSE 58; TEMP 36.5; O2SAT 97
[2017-07-20] MEDS: DOCUSATE SODIUM/SENNA 50/8.6MG TAB PO SCH (20:28)
[2017-07-20 23:10] VITALS: BP 127/72; PULSE 53; TEMP 36.8; O2SAT 95
[2017-07-21] VITALS: O2SAT 95
[2017-07-21] MEDS: AMPICILLIN/SULBACTAM SOD INJ 3,000 MG in SODIUM CHLORIDE 0.9% 100ML 100 ML IV SCH ×3 (05:30→18:27)
[2017-07-21 07:20] VITALS: BP 112/77; PULSE 49; TEMP 36.6; O2SAT 97
[2017-07-21] MEDS: LACOSAMIDE 50 MG TAB PO SCH ×2 (08:37→21:18)
[2017-07-21] MEDS: FLUOXETINE HCL 20 MG CAP PO SCH (08:37)
[2017-07-21] MEDS: PANTOprazole SOD 40 MG TAB PO SCH (08:38)
[2017-07-21] MEDS: BusPIRone 15 MG TAB PO SCH ×2 (08:38→21:19)
[2017-07-21] MEDS: GABAPENTIN 100 MG CAP PO SCH ×3 (08:38→21:17)
[2017-07-21] MEDS: DOCUSATE SODIUM 100 MG CAP PO SCH ×2 (08:38→21:15)
[2017-07-21] MEDS: CARBAMIDE PEROXIDE 6.5% 15 ML BTL OT SCH ×2 (08:39→21:13)
[2017-07-21] MEDS: FELBAMATE 600 MG PO SCH ×2 (08:55→21:14)
[2017-07-21] MEDS: CLOBAZAM 10 MG PO SCH ×2 (08:56→21:14)
[2017-07-21] MEDS: POLYETHYLENE (MIRALAX) 17 GM PACK PO SCH (08:59)
--- NOTE | 2017-07-21 11:44 | Progress Note ---
Subjective Date of Service: July 21, 2017. Subjective pt is very shakey this am, he otherwise is without focal issues will continue to support and rehab Problem List Medical Problems: (1) Abdominal pain Status: Acute (2) Acute electrocardiogram changes Status: Acute (3) Altered mental status Status: Acute (4) Aspiration pneumonia Status: Acute (5) Change in mental status Status: Acute (6) Change in mental status Status: Acute (7) Closed head injury Status: Acute (8) Closed head injury Status: Acute (9) Closed head injury Status: Acute (10) Closed head injury Status: Acute (11) Closed head injury Status: Acute (12) Contusion of lower back Status: Acute (13) Contusion of occipital region of scalp Status: Acute (14) Degenerative arthritis of cervical spine Status: Acute (15) Tjiiwoecxv-qzauhxg-zueiagnxd (DTP) vaccination Status: Acute (16) Fall Status: Acute (17) Fall Status: Acute (18) Fall Status: Acute (19) Fall Status: Acute (20) Fall Status: Acute (21) Fall Status: Acute (22) Fall Status: Acute (23) Fall Status: Acute (24) Fall Status: Acute (25) Fall Status: Acute (26) Fall from bed Status: Acute (27) Fever of unknown origin Status: Acute (28) Head injury, closed Status: Acute (29) Hemorrhoids Status: Acute (30) Hypokalemia Status: Acute (31) Influenza-like symptoms Status: Acute (32) Laceration of scalp Status: Acute (33) Leukocytosis Status: Acute (34) Medication reaction Status: Acute (35) Muscle tremor Status: Acute (36) Pneumonia Status: Acute (37) Pneumonia Status: Acute (38) Seizure Status: Acute (39) Seizure Status: Acute (40) Weakness Status: Acute (41) Weakness Status: Acute Review of Systems Constitutional: + weakness, + fatigue, No fever, No chills Respiratory: + cough, No wheezing, No shortness of breath Abdomen: No pain, No nausea, No vomiting Musculoskeletal: No joint pain, No muscle pain Psychiatric: No depression symptoms, No anhedonism Objective Vital Signs Date Time Temp Pulse Resp B/P (MAP) Pulse Ox O2 Delivery O2 Flow Rate FiO2 07/21/17 08:00 Room Air 07/21/17 07:20 36.6 49 17 112/77 (89) 97 Room Air 07/21/17 00:00 95 Room Air 07/20/17 23:10 36.8 53 18 127/72 (90) 95 Room Air 07/20/17 16:00 Room Air 07/20/17 15:08 36.5 58 18 137/72 (93) 97 Room Air Physical Exam General Appearance: WD/WN, + mild distress Eyes: normal inspection, sclerae normal Respiratory/Chest: chest non-tender, lungs clear Cardiovascular: regular rate, rhythm, no murmur Abdomen: normal bowel sounds, non tender Extremities: no pedal edema, no calf tenderness Neurologic/Psychiatric: alert, + depressed affect, + disoriented Assessment and Plan 51 y/o male with a history of aspiration, severe epilepsy, chronic ataxia, intellectual impairment, and TBI who presents from his [facility] with nausea, vomiting and decreased urinary output. Nausea, vomiting, concern for aspiration PNA/pneumonitis with metabolic encephalopathy--improving CXR w/possible 11 mm left base pulmonary nodule, consider f/u chest CT, clinically concern for encephalopathy from infection -Continue Zosyn, also looking for urine culture results Seizure disorder--stable -Seizure precautions -Continue Vimpat, lamotrigine, felbamate, gabapentin Resting tremor, will consider increasing neurontin Intellectual disability, need assistance with adl's DVT prophylaxis-SCDs Code Status-Level I, FULL RESUSCITATION STATUS Dispo-From [facility]
[2017-07-21 15:05] VITALS: BP 117/75; PULSE 71; TEMP 36.8; O2SAT 94
[2017-07-21] MEDS ORDERED: NURSING VERBAL MED ORDER ONE ×2 (19:00→19:15)
[2017-07-21] MEDS ORDERED: hydrOXYzine HCL 25 MG TAB PO PRN (19:15)
[2017-07-21 20:29] VITALS: BP 123/84; PULSE 61; TEMP 36.9; O2SAT 95
[2017-07-21] MEDS: DOCUSATE SODIUM/SENNA 50/8.6MG TAB PO SCH (21:20)
[2017-07-21 23:26] VITALS: BP 131/74; PULSE 55; TEMP 36.8; O2SAT 95
[2017-07-22] MEDS: AMPICILLIN/SULBACTAM SOD INJ 3,000 MG in SODIUM CHLORIDE 0.9% 100ML 100 ML IV SCH ×2 (00:13→05:46)
[2017-07-22 07:16] VITALS: BP 144/86; PULSE 53; TEMP 36.6; O2SAT 97
[2017-07-22 07:17] LABS: HEMATOCRIT 37.5 % (42-52); HEMOGLOBIN 12.7 g/dL (14.0-18.0); MEAN CELL VOLUME 92.8 fL (80-100); MEAN CORPUSCULAR HEMOGLOBIN 31.4 pg (25-34); MEAN CORPUSCULAR HGB CONC 33.9 g/dl (32-36); MEAN PLATELET VOLUME 8.6 fL (7.4-10.4); PLATELET COUNT 145 K/uL (130-400); RED CELL DISTRIBUTION WIDTH CV 13.6 % (11.5-14.5); RED CELL DISTRIBUTION WIDTH SD 46.4 fL (36.4-46.3); WHITE BLOOD COUNT 4.49 K/uL (4.8-10.8)
[2017-07-22 07:35] LABS: CALCIUM 8.7 mg/dl (8.5-10.1); CREATININE 0.82 mg/dl (0.60-1.40); POTASSIUM 3.7 mmol/L (3.5-5.1)
[2017-07-22] MEDS: GABAPENTIN 100 MG CAP PO SCH ×3 (08:11→21:45)
[2017-07-22] MEDS: DOCUSATE SODIUM 100 MG CAP PO SCH ×2 (08:11→21:44)
[2017-07-22] MEDS: PANTOprazole SOD 40 MG TAB PO SCH ×2 (08:11→21:46)
[2017-07-22] MEDS: BusPIRone 15 MG TAB PO SCH ×2 (08:11→21:47)
[2017-07-22] MEDS: FLUOXETINE HCL 20 MG CAP PO SCH (08:11)
[2017-07-22] MEDS: POLYETHYLENE (MIRALAX) 17 GM PACK PO SCH (08:13)
[2017-07-22] MEDS: LACOSAMIDE 50 MG TAB PO SCH ×2 (08:13→21:46)
[2017-07-22] MEDS: CARBAMIDE PEROXIDE 6.5% 15 ML BTL OT SCH ×2 (08:14→21:43)
[2017-07-22] MEDS: CLOBAZAM 10 MG PO SCH ×2 (08:31→21:45)
[2017-07-22] MEDS: FELBAMATE 600 MG PO SCH ×2 (08:31→21:44)
--- NOTE | 2017-07-22 11:11 | Progress Note ---
Subjective Date of Service: July 22, 2017. Subjective pts baseline shaking is a challenge in getting him to assist in self care, nursing reports that pt seems to be bothered by dyspepsia symptoms, and will try to increase ppi, may need discussion with family if disposition environment is the best place for the patient as seems to need more assistance with ADL's Problem List Medical Problems: (1) Abdominal pain Status: Acute (2) Acute electrocardiogram changes Status: Acute (3) Altered mental status Status: Acute (4) Aspiration pneumonia Status: Acute (5) Change in mental status Status: Acute (6) Change in mental status Status: Acute (7) Closed head injury Status: Acute (8) Closed head injury Status: Acute (9) Closed head injury Status: Acute (10) Closed head injury Status: Acute (11) Closed head injury Status: Acute (12) Contusion of lower back Status: Acute (13) Contusion of occipital region of scalp Status: Acute (14) Degenerative arthritis of cervical spine Status: Acute (15) Jyidfariqq-wwaluip-kdtrzlhhi (DTP) vaccination Status: Acute (16) Fall Status: Acute (17) Fall Status: Acute (18) Fall Status: Acute (19) Fall Status: Acute (20) Fall Status: Acute (21) Fall Status: Acute (22) Fall Status: Acute (23) Fall Status: Acute (24) Fall Status: Acute (25) Fall Status: Acute (26) Fall from bed Status: Acute (27) Fever of unknown origin Status: Acute (28) Head injury, closed Status: Acute (29) Hemorrhoids Status: Acute (30) Hypokalemia Status: Acute (31) Influenza-like symptoms Status: Acute (32) Laceration of scalp Status: Acute (33) Leukocytosis Status: Acute (34) Medication reaction Status: Acute (35) Muscle tremor Status: Acute (36) Pneumonia Status: Acute (37) Pneumonia Status: Acute (38) Seizure Status: Acute (39) Seizure Status: Acute (40) Weakness Status: Acute (41) Weakness Status: Acute Review of Systems Constitutional: + weakness, + fatigue, No fever, No chills Respiratory: No cough, No shortness of breath, No dyspnea on exertion Cardiac: No chest pain, No edema Abdomen: No pain, No nausea, No vomiting Musculoskeletal: No joint pain, No muscle pain Male : No dysuria, No urinary frequency Neurologic: + memory loss, + weakness Psychiatric: No depression symptoms, No anxiety Objective Vital Signs Date Time Temp Pulse Resp B/P (MAP) Pulse Ox O2 Delivery O2 Flow Rate FiO2 07/22/17 08:00 Room Air 07/22/17 07:16 36.6 53 18 144/86 (105) 97 Room Air 07/22/17 00:30 Room Air 07/21/17 23:26 36.8 55 18 131/74 (93) 95 Room Air 07/21/17 20:29 36.9 61 14 123/84 (97) 95 Room Air 07/21/17 20:20 Room Air 07/21/17 16:00 Room Air 07/21/17 15:05 36.8 71 20 117/75 (89) 94 Room Air Physical Exam General Appearance: WD/WN, + moderate distress Respiratory/Chest: chest non-tender, lungs clear, normal breath sounds Cardiovascular: regular rate, rhythm, no murmur Abdomen: normal bowel sounds, non tender, soft Neurologic/Psychiatric: alert, + abnormal gait, + pertinent finding ( significant attention tremor) Laboratory Results Last 24 Hours Test 07/22/17 06:40 White Blood Count 4.49 K/uL Red Blood Count 4.04 M/uL Hemoglobin 12.7 g/dL Hematocrit 37.5 % Mean Corpuscular Volume 92.8 fL Mean Corpuscular Hemoglobin 31.4 pg Mean Corpuscular Hemoglobin Concent 33.9 g/dl RDW Standard Deviation 46.4 fL RDW Coefficient of Variation 13.6 % Platelet Count 145 K/uL Mean Platelet Volume 8.6 fL Sodium Level 143 mmol/L Potassium Level 3.7 mmol/L Chloride Level 105 mmol/L Carbon Dioxide Level 33 mmol/L Anion Gap 4.0 mmol/L Blood Urea Nitrogen 8 mg/dl Creatinine 0.82 mg/dl Est Creatinine Clear Calc Drug Dose 104.2 ml/min Estimated GFR () 117.0 Estimated GFR (Non- 101.0 BUN/Creatinine Ratio 9.1 Random Glucose 87 mg/dl Calcium Level 8.7 mg/dl Assessment and Plan 51 y/o male with a history of aspiration, severe epilepsy, chronic ataxia, intellectual impairment, and TBI who presents from his care home with nausea, vomiting and decreased urinary output. Nausea, vomiting, concern for aspiration PNA/pneumonitis with metabolic encephalopathy--improving will move to po augmentin CXR w/possible 11 mm left base pulmonary nodule, will have lung nodule program , concern for encephalopathy from infection Seizure disorder--stable, has significant tremors, nursing feels maybe seizure overnight will involve neurology this week for medication assessment -Seizure precautions -Continue Vimpat, lamotrigine, felbamate, gabapentin Resting tremor, will consider increasing neurontin Intellectual disability, need assistance with adl's, will have OT eval to see if the care home setting is appropriate for this patient dyspepsia? increase ppi to bid, consider EGD if still with issues DVT prophylaxis-SCDs Code Status-Level I, FULL RESUSCITATION STATUS
[2017-07-22] MEDS: AMOXICILLIN/CLAVULANATE TAB 875 MG TAB PO SCH (15:34)
[2017-07-22 15:49] VITALS: BP 137/72; PULSE 61; TEMP 36.6; O2SAT 94
[2017-07-22 21:00] VITALS: O2SAT 94
[2017-07-22] MEDS: DOCUSATE SODIUM/SENNA 50/8.6MG TAB PO SCH (21:44)
[2017-07-22 23:32] VITALS: BP 133/78; PULSE 65; TEMP 36.8; O2SAT 95
[2017-07-23 07:19] VITALS: BP 135/89; PULSE 56; TEMP 36.5; O2SAT 95
[2017-07-23 08:00] VITALS: O2SAT 95
[2017-07-23] MEDS: FLUOXETINE HCL 20 MG CAP PO SCH (08:02)
[2017-07-23] MEDS: LACOSAMIDE 50 MG TAB PO SCH ×2 (08:02→20:40)
[2017-07-23] MEDS: PANTOprazole SOD 40 MG TAB PO SCH ×2 (08:02→20:40)
[2017-07-23] MEDS: AMOXICILLIN/CLAVULANATE TAB 875 MG TAB PO SCH ×2 (08:03→17:38)
[2017-07-23] MEDS: BusPIRone 15 MG TAB PO SCH ×2 (08:03→20:42)
[2017-07-23] MEDS: DOCUSATE SODIUM 100 MG CAP PO SCH ×2 (08:03→20:25)
[2017-07-23] MEDS: POLYETHYLENE (MIRALAX) 17 GM PACK PO SCH (08:03)
[2017-07-23] MEDS: GABAPENTIN 100 MG CAP PO SCH ×3 (08:05→20:33)
[2017-07-23] MEDS: FELBAMATE 600 MG PO SCH ×2 (08:21→20:44)
[2017-07-23] MEDS: CLOBAZAM 10 MG PO SCH ×2 (08:21→20:43)
--- NOTE | 2017-07-23 11:15 | Progress Note ---
Subjective Date of Service: July 23, 2017. Subjective Pt evaluation today including: conversation w/ patient, conversation w/ family Patient reports having continued tremors. Family states that he is close to his baseline. Family does not want patient to go to senior care facility as they state that he usually recovers after rehab and gets stronger. Problem List Medical Problems: (1) Abdominal pain Status: Acute (2) Acute electrocardiogram changes Status: Acute (3) Altered mental status Status: Acute (4) Aspiration pneumonia Status: Acute (5) Change in mental status Status: Acute (6) Change in mental status Status: Acute (7) Closed head injury Status: Acute (8) Closed head injury Status: Acute (9) Closed head injury Status: Acute (10) Closed head injury Status: Acute (11) Closed head injury Status: Acute (12) Contusion of lower back Status: Acute (13) Contusion of occipital region of scalp Status: Acute (14) Degenerative arthritis of cervical spine Status: Acute (15) Jivfgmaraw-ssfqfho-hscmpddhr (DTP) vaccination Status: Acute (16) Fall Status: Acute (17) Fall Status: Acute (18) Fall Status: Acute (19) Fall Status: Acute (20) Fall Status: Acute (21) Fall Status: Acute (22) Fall Status: Acute (23) Fall Status: Acute (24) Fall Status: Acute (25) Fall Status: Acute (26) Fall from bed Status: Acute (27) Fever of unknown origin Status: Acute (28) Head injury, closed Status: Acute (29) Hemorrhoids Status: Acute (30) Hypokalemia Status: Acute (31) Influenza-like symptoms Status: Acute (32) Laceration of scalp Status: Acute (33) Leukocytosis Status: Acute (34) Medication reaction Status: Acute (35) Muscle tremor Status: Acute (36) Pneumonia Status: Acute (37) Pneumonia Status: Acute (38) Seizure Status: Acute (39) Seizure Status: Acute (40) Weakness Status: Acute (41) Weakness Status: Acute Review of Systems Constitutional: + weakness, + fatigue, No fever, No chills Respiratory: No cough, No shortness of breath, No dyspnea on exertion Cardiac: No chest pain, No edema Abdomen: No pain, No nausea, No vomiting Musculoskeletal: No joint pain, No muscle pain Male : No dysuria, No urinary frequency Neurologic: + weakness Psychiatric: No depression symptoms, No anxiety All Other Systems: Reviewed and Negative Medications Current Inpatient Medications Medications (Trade) Dose Ordered Sig/Hugh Route Start Time Stop Time Status Last Admin Dose Admin Acetaminophen (Tylenol Tab) 650 mg Q4H PRN PO 07/18/17 18:00 08/17/17 17:59 07/23/17 03:40 650 MG Al Hydrox/Mg Hydrox/Simethicone (Maalox Max Susp) 15 ml Q4H PRN PO 07/18/17 18:00 08/17/17 17:59 Magnesium Hydroxide (Milk Of Magnesia Susp) 30 ml Q6H PRN PO 07/18/17 18:00 08/17/17 17:59 Ondansetron HCl (Zofran Inj) 4 mg Q6H PRN IV 07/18/17 18:00 08/17/17 17:59 Buspirone HCl (BusPAR TAB) 15 mg QAM PO 07/19/17 08:00 08/18/17 08:59 07/23/17 08:03 15 MG Buspirone HCl (BusPAR TAB) 30 mg HS PO 07/18/17 21:00 08/17/17 20:59 07/23/17 20:42 30 MG Docusate Sodium (coLACE CAP) 100 mg BID PO 07/18/17 20:04 08/17/17 20:59 07/23/17 20:25 100 MG Fluoxetine HCl (Prozac Cap) 20 mg DAILY PO 07/19/17 08:00 08/18/17 08:59 07/23/17 08:02 20 MG Gabapentin (Neurontin Cap) 100 mg TID PO 07/18/17 20:04 08/17/17 20:59 07/23/17 20:33 100 MG Senna/Docusate Sodium (Senokot S Tab) 1 tab HS PO 07/18/17 21:00 08/17/17 20:59 07/23/17 20:43 1 TAB Lacosamide (Vimpat Tab) 200 mg BID PO 07/18/17 20:04 08/17/17 20:59 07/23/17 20:40 200 MG Miscellaneous Information (Order Awaiting Action) 1 ea QS N/A 07/19/17 00:00 08/18/17 00:00 Miscellaneous Information (Order Awaiting Action) 1 ea QS N/A 07/19/17 00:00 08/18/17 00:00 Loperamide HCl (Imodium Cap) 4 mg BID PRN PO 07/18/17 18:45 08/17/17 18:44 Lorazepam (Ativan Inj) 2 mg Q6H PRN IV 07/18/17 18:45 08/17/17 18:44 Albuterol/ Ipratropium (Duoneb) 3 ml Q6H PRN INH 07/18/17 18:45 08/17/17 18:44 Lorazepam 2 mg/ Syringe 2 ml @ 1 mls/min Q6H PRN IV 07/18/17 20:15 08/17/17 20:14 Clobazam (Onfi) 5 mg Q12@08 PO 07/19/17 11:00 08/18/17 10:59 07/23/17 20:43 5 MG Felbamate (Felbatol) 600 mg BID@ PO 07/19/17 11:00 08/18/17 10:59 07/23/17 20:44 600 MG Lamotrigine (Lamictal Tab) 350 mg BID PO 07/19/17 20:00 08/18/17 19:59 07/23/17 20:32 350 MG Polyethylene (Miralax Powder Packet) 17 gm DAILY PO 07/21/17 08:00 08/17/17 17:59 07/23/17 08:03 17 GM Pantoprazole Sodium (Protonix Tab) 40 mg BID PO 07/22/17 20:00 08/18/17 08:59 07/23/17 20:40 40 MG Amoxicillin/ Clavulanate Potassium (Augmentin Tab) 875 mg BIDM PO 07/22/17 17:00 07/29/17 16:59 07/23/17 17:38 875 MG Objective Vital Signs Date Time Temp Pulse Resp B/P (MAP) Pulse Ox O2 Delivery O2 Flow Rate FiO2 07/23/17 08:00 95 Room Air 07/23/17 07:19 36.5 56 18 135/89 (104) 95 07/23/17 00:00 Room Air 07/22/17 23:32 36.8 65 20 133/78 (96) 95 Room Air 07/22/17 21:00 94 Room Air 07/22/17 16:00 Room Air 07/22/17 15:49 36.6 61 18 137/72 (93) 94 Room Air Physical Exam Comments: General Appearance: WD/WN, no distress Respiratory/Chest: chest non-tender, lungs clear, normal breath sounds Cardiovascular: regular rate, rhythm, no murmur Abdomen: normal bowel sounds, non tender, soft Neurologic/Psychiatric: alert, + abnormal gait, + pertinent finding ( significant attention tremor) Assessment and Plan 51 y/o male with a history of aspiration, severe epilepsy, chronic ataxia, intellectual impairment, and TBI who presents from his [place] [facility] with nausea, vomiting and decreased urinary output. Nausea, vomiting, concern for aspiration PNA/pneumonitis with metabolic encephalopathy--improving will move to po augmentin CXR w/possible 11 mm left base pulmonary nodule, will have lung nodule program , concern for encephalopathy from infection. Today however, patient appears close to baseline mentally. This was confirmed with his family who was at bedside. will continue with current antibiotics. -in the past: medications have caused confusion. Seizure disorder--stable, has significant tremors, nursing feels maybe seizure overnight will involve neurology this week for medication assessment -Seizure precautions -Continue Vimpat, lamotrigine, felbamate, gabapentin Resting tremor, will consider increasing neurontin. Unfortunately Ayaz continues to be plagued by seizure disorder and severe essential tremor. He also continues to follow with Neurology and will do so at discharge as an outpatient. Intellectual disability, need assistance with adl's, will have OT eval to see if the [place] [facility] setting is appropriate for this patient dyspepsia? increase ppi to bid, consider EGD if still with issues DVT prophylaxis-SCDs Code Status-Level I, FULL RESUSCITATION STATUS Spent 40 minutes in the management of this patient, this also included interviewing patient and family. Continued [facility] stay due to: other Discharge planning: home with home health
[2017-07-23 15:49] VITALS: BP 108/68; PULSE 86; TEMP 37.1; O2SAT 95
[2017-07-23] MEDS: DOCUSATE SODIUM/SENNA 50/8.6MG TAB PO SCH (20:43)
[2017-07-23 23:48] VITALS: BP 125/77; PULSE 57; TEMP 36.3; O2SAT 97
[2017-07-24 07:26] LABS: HEMATOCRIT 40.1 % (42-52); HEMOGLOBIN 13.8 g/dL (14.0-18.0); MEAN CELL VOLUME 92.6 fL (80-100); MEAN CORPUSCULAR HEMOGLOBIN 31.9 pg (25-34); MEAN CORPUSCULAR HGB CONC 34.4 g/dl (32-36); MEAN PLATELET VOLUME 8.4 fL (7.4-10.4); PLATELET COUNT 128 K/uL (130-400); RED CELL DISTRIBUTION WIDTH CV 13.8 % (11.5-14.5); RED CELL DISTRIBUTION WIDTH SD 46.8 fL (36.4-46.3); WHITE BLOOD COUNT 4.94 K/uL (4.8-10.8)
[2017-07-24 07:56] VITALS: BP 131/77; PULSE 65; TEMP 36.8; O2SAT 93
[2017-07-24 07:56] LABS: CREATININE 0.77 mg/dl (0.60-1.40)
[2017-07-24 08:00] VITALS: O2SAT 93
[2017-07-24] MEDS: AMOXICILLIN/CLAVULANATE TAB 875 MG TAB PO SCH ×2 (08:08→17:15)
[2017-07-24] MEDS: FELBAMATE 600 MG PO SCH ×2 (08:08→22:24)
[2017-07-24] MEDS: PANTOprazole SOD 40 MG TAB PO SCH ×2 (08:08→21:55)
[2017-07-24] MEDS: LACOSAMIDE 50 MG TAB PO SCH ×2 (08:08→21:56)
[2017-07-24] MEDS: BusPIRone 15 MG TAB PO SCH ×2 (08:08→21:56)
[2017-07-24] MEDS: FLUOXETINE HCL 20 MG CAP PO SCH (08:08)
[2017-07-24] MEDS: DOCUSATE SODIUM 100 MG CAP PO SCH ×2 (08:08→21:52)
[2017-07-24] MEDS: GABAPENTIN 100 MG CAP PO SCH ×3 (08:08→21:54)
[2017-07-24] MEDS: CLOBAZAM 10 MG PO SCH ×2 (08:08→22:24)
[2017-07-24] MEDS: POLYETHYLENE (MIRALAX) 17 GM PACK PO SCH (08:09)
[2017-07-24 14:00] VITALS: BP 115/61
[2017-07-24 15:34] VITALS: BP 135/65; PULSE 93; TEMP 36.8; O2SAT 94
--- NOTE | 2017-07-24 20:56 | Progress Note ---
Subjective Date of Service: July 24, 2017. Subjective Pt evaluation today including: conversation w/ patient, physical exam Patient reports feeling significantly better today. He has been ambulating better with assistance and is nearing his baseline. Patient denies any nausea, vomiting, diarrhea. Problem List Medical Problems: (1) Abdominal pain Status: Acute (2) Acute electrocardiogram changes Status: Acute (3) Altered mental status Status: Acute (4) Aspiration pneumonia Status: Acute (5) Change in mental status Status: Acute (6) Change in mental status Status: Acute (7) Closed head injury Status: Acute (8) Closed head injury Status: Acute (9) Closed head injury Status: Acute (10) Closed head injury Status: Acute (11) Closed head injury Status: Acute (12) Contusion of lower back Status: Acute (13) Contusion of occipital region of scalp Status: Acute (14) Degenerative arthritis of cervical spine Status: Acute (15) Yqbabkmxcs-nndmmcn-izrtapeum (DTP) vaccination Status: Acute (16) Fall Status: Acute (17) Fall Status: Acute (18) Fall Status: Acute (19) Fall Status: Acute (20) Fall Status: Acute (21) Fall Status: Acute (22) Fall Status: Acute (23) Fall Status: Acute (24) Fall Status: Acute (25) Fall Status: Acute (26) Fall from bed Status: Acute (27) Fever of unknown origin Status: Acute (28) Head injury, closed Status: Acute (29) Hemorrhoids Status: Acute (30) Hypokalemia Status: Acute (31) Influenza-like symptoms Status: Acute (32) Laceration of scalp Status: Acute (33) Leukocytosis Status: Acute (34) Medication reaction Status: Acute (35) Muscle tremor Status: Acute (36) Pneumonia Status: Acute (37) Pneumonia Status: Acute (38) Seizure Status: Acute (39) Seizure Status: Acute (40) Weakness Status: Acute (41) Weakness Status: Acute Review of Systems Constitutional: + weakness, no fatigue, No fever, No chills Respiratory: No cough, No shortness of breath, No dyspnea on exertion Cardiac: No chest pain, No edema Abdomen: No pain, No nausea, No vomiting Musculoskeletal: No joint pain, No muscle pain Male : No dysuria, No urinary frequency Neurologic: + weakness Psychiatric: No depression symptoms, No anxiety All Other Systems: Reviewed and Negative Objective Vital Signs Date Time Temp Pulse Resp B/P (MAP) Pulse Ox O2 Delivery O2 Flow Rate FiO2 07/24/17 16:00 Room Air 07/24/17 15:34 36.8 93 18 135/65 (88) 94 07/24/17 08:00 93 Room Air 07/24/17 07:56 36.8 65 18 131/77 (95) 93 Room Air 07/24/17 00:00 Room Air 07/23/17 23:48 36.3 57 16 125/77 (93) 97 Room Air Physical Exam General Appearance: WD/WN, no apparent distress Eyes: normal inspection ENT: normal ENT inspection Neck: supple, no adenopathy Respiratory/Chest: chest non-tender, lungs clear, normal breath sounds Cardiovascular: regular rate, rhythm Abdomen: normal bowel sounds, non tender, soft Extremities: non-tender Neurologic/Psychiatric: + pertinent finding (Neurologic/Psychiatric: alert, + abnormal gait, + pertinent finding (significant attention tremor)) Skin: normal color Lymphatic: no adenopathy Laboratory Results Last 24 Hours Test 07/24/17 06:53 White Blood Count 4.94 K/uL Red Blood Count 4.33 M/uL Hemoglobin 13.8 g/dL Hematocrit 40.1 % Mean Corpuscular Volume 92.6 fL Mean Corpuscular Hemoglobin 31.9 pg Mean Corpuscular Hemoglobin Concent 34.4 g/dl RDW Standard Deviation 46.8 fL RDW Coefficient of Variation 13.8 % Platelet Count 128 K/uL Mean Platelet Volume 8.4 fL Sodium Level 139 mmol/L Potassium Level 4.0 mmol/L Chloride Level 105 mmol/L Carbon Dioxide Level 31 mmol/L Anion Gap 3.0 mmol/L Blood Urea Nitrogen 9 mg/dl Creatinine 0.77 mg/dl Est Creatinine Clear Calc Drug Dose 110.9 ml/min Estimated GFR () 120.1 Estimated GFR (Non- 103.6 BUN/Creatinine Ratio 12.2 Random Glucose 81 mg/dl Calcium Level 9.0 mg/dl Assessment and Plan 51 y/o male with a history of aspiration, severe epilepsy, chronic ataxia, intellectual impairment, and TBI who [facility] his [facility] with nausea, vomiting and decreased urinary output. Nausea, vomiting, concern for aspiration PNA/pneumonitis with metabolic encephalopathy--improving will move to po augmentin CXR w/possible 11 mm left base pulmonary nodule, will have lung nodule program , concern for encephalopathy from infection. Today. however, patient appears close to baseline mentally. And is showing improvement in his strength. will continue with current antibiotics. Patient is now pending placement. Seizure disorder--stable, has significant tremors, nursing feels maybe seizure overnight will involve neurology this week for medication assessment -Seizure precautions -Continue Vimpat, lamotrigine, felbamate, gabapentin Resting tremor, will consider increasing Neurontin. -For now will continue current dose. Unfortunately Ayaz continues to be plagued by seizure disorder and severe essential tremor. He also continues to follow with Neurology and will do so at discharge as an outpatient. Intellectual disability, need assistance with adl's, will have OT eval to see if the [facility] setting is appropriate for this patient dyspepsia? increase ppi to bid, consider EGD if still with issues DVT prophylaxis-SCDs Code Status-Level I, FULL RESUSCITATION STATUS Pending placement. Continued [facility] stay due to: other Discharge planning: home with home health
[2017-07-24] MEDS: DOCUSATE SODIUM/SENNA 50/8.6MG TAB PO SCH (21:56)
[2017-07-24 23:15] VITALS: BP 118/72; PULSE 68; TEMP 36.8; O2SAT 96
[2017-07-25 07:04] VITALS: BP 117/69; PULSE 67; TEMP 36.7; O2SAT 96
[2017-07-25 08:00] VITALS: O2SAT 96
[2017-07-25] MEDS: POLYETHYLENE (MIRALAX) 17 GM PACK PO SCH (08:21)
[2017-07-25] MEDS: GABAPENTIN 100 MG CAP PO SCH (08:21)
[2017-07-25] MEDS: BusPIRone 15 MG TAB PO SCH (08:22)
[2017-07-25] MEDS: PANTOprazole SOD 40 MG TAB PO SCH (08:22)
[2017-07-25] MEDS: AMOXICILLIN/CLAVULANATE TAB 875 MG TAB PO SCH (08:22)
[2017-07-25] MEDS: DOCUSATE SODIUM 100 MG CAP PO SCH (08:22)
[2017-07-25] MEDS: LACOSAMIDE 50 MG TAB PO SCH (08:23)
[2017-07-25] MEDS: FLUOXETINE HCL 20 MG CAP PO SCH (08:23)
[2017-07-25] MEDS: CLOBAZAM 10 MG PO SCH (08:36)
[2017-07-25] MEDS: FELBAMATE 600 MG PO SCH (08:36)
[2017-07-25 10:12] VITALS: BP 117/69; PULSE 67; TEMP 36.7; O2SAT 96
[2017-07-25] MEDS ORDERED: AMOX1TAB43 PO (10:42)
--- NOTE | 2017-07-25 10:43 | Discharge Instructions ---
Discharge Instructions Date of Service July 25, 2017. Admission Reason for Admission: Aspiration Pneumonia, Dehydration Discharge Discharge Diagnosis / Problem: Aspiration Pneumonia Discharge Goals Goal(s): Decrease discomfort, Improve function Activity Recommendations Activity Limitations: as noted below Lifting Limitations: gradually increase as tolerated . Instructions / Follow-Up Instructions / Follow-Up Followup with PCP in 1-2 weeks Followup with Neurology in 1-2 weeks Complete 7 more days of antibiotics Current Hospital Diet Patient's current hospital diet: AHA Diet (Heart Healthy) Discharge Diet Recommended Diet: AHA Diet (Heart Healthy) Pending Studies Studies pending at discharge: no Medical Emergencies . Who to Call and When: Medical Emergencies: If at any time you feel your situation is an emergency, please call 911 immediately. . Non-Emergent Contact Non-Emergency issues call your: Primary Care Provider Call Non-Emergent contact if: you have any medication questions . . "Provider Documentation" section prepared by Chris Maxwell. .
--- NOTE | 2017-07-25 10:44 | Discharge Summary ---
Discharge Summary Date of Service July 25, 2017. Discharge Summary Admission Date: July 18, 2017 at 18:18 Discharge Date: July 25, 2017 Discharge Disposition: Rehab Principal Diagnosis: aspiration PNA/pneumonitis with metabolic encephalopathy Immunizations: Have You Had Influenza Vaccine: N/A Influenza Vaccine Date: Nov 03, 2009 History of Tetanus Vaccine?: Yes Tetanus Immunization Date: Jun 04, 2007 History of Pneumococcal: No History of Hepatitis B Vaccine: Unknown Hepatitis Immunization Date: Jun 04, 2007 Medication Reconciliation New Medications: Amoxicillin & Pot Clavulanate (Amoxicillin/Clavulanate P) 1 Tab Tab 875 MG PO BIDM for 7 Days, #14 TAB Continued Medications: Acetaminophen (Tylenol) 500 Mg Tab 500 MG PO Q4H PRN for Pain, TAB Alum & Mag Hydrox-Simethicone (Antacid & [place] 200-200-20 mg/5Ml) 1 Henrietta Henrietta 30 ML PO Q6 PRN for Buspirone Hcl (Buspar) 15 Mg Tab 15 MG PO QAM Buspirone Hcl (Buspar) 15 Mg Tab 30 MG PO HS Carbamide Peroxide (Otic) (Carbamide Peroxide) 6.5 % Jenniffer 5-10 DROPS OT BID USE THE FIRST 3 DAYS OF THE MONTH Dextromethorphan Polistirex (Delsym) 30 Mg/5 Ml Liq 10 ML PO Q12 PRN for Cough Docusate Sodium (Colace) 100 Mg Cap 100 MG PO BID Felbamate (Felbamate) 600 Mg Tab 600 MG PO BID Fluoxetine Hcl (Prozac) 20 Mg Cap 20 MG PO DAILY Gabapentin (Neurontin) 100 Mg Cap 100 MG PO TID, CAP Lacosamide (Vimpat) 200 Mg Tab 200 MG PO BID Lamotrigine (Lamotrigine Er) 300 Mg Tab 300 MG PO BID TAKE WITH 50MG = 350 MG TWICE DAILY. Lamotrigine (Lamictal Xr) 50 Mg Tab 50 MG PO BID TAKE WITH 300MG = 350 MG TWICE DAILY. Loperamide Hcl (Imodium A-D) 2 Mg Tab 4 MG PO UD PRN for Diarrhea Magnesium Hydroxide (Milk Of Magnesia) 30 Ml Susp 30 ML PO UD PRN for Constipation Multiple Vitamins W/ Minerals (Preservision Areds 2) 1 Cap Cap 2 CAP PO QAM Neomycin/Polymyx/Bacitr (Neosporin) Oint 1 APPL TOP BID PRN for CUTS,SCRAPES,ABRASIONS Omeprazole (Prilosec) 20 Mg Capcr 20 MG PO QAM Sennosides-Docusate Sodium (Senokot S) 1 Tab Tab 1 TAB PO HS [Onfi] () 5 MG PO BID Discharge Exam Review of Systems Constitutional: + weakness, no fatigue, No fever, No chills Respiratory: No cough, No shortness of breath, No dyspnea on exertion Cardiac: No chest pain, No edema Abdomen: No pain, No nausea, No vomiting Musculoskeletal: No joint pain, No muscle pain Male : No dysuria, No urinary frequency Neurologic: + weakness Psychiatric: No depression symptoms, No anxiety All Other Systems: Reviewed and Negative Physical Exam General Appearance: WD/WN, no apparent distress Eyes: normal inspection ENT: normal ENT inspection Neck: supple, no adenopathy Respiratory/Chest: chest non-tender, lungs clear, normal breath sounds Cardiovascular: regular rate, rhythm Abdomen: normal bowel sounds, non tender, soft Extremities: non-tender Neurologic/Psychiatric: + pertinent finding (Neurologic/Psychiatric: alert, + abnormal gait, + pertinent finding (significant attention tremor)) Skin: normal color Lymphatic: no adenopathy Hospital Course 51 y/o male with a history of aspiration, severe epilepsy, chronic ataxia, intellectual impairment, and TBI who presents [facility] his [facility] with nausea, vomiting and decreased urinary output. Nausea, vomiting, concern for aspiration PNA/pneumonitis with metabolic encephalopathy--improving will move to po augmentin CXR w/possible 11 mm left base pulmonary nodule, will have lung nodule program , concern for encephalopathy from infection. Throughout hospital stay, patient has improved his strength and mentation. As per family patient has improved and is back to baseline will continue with current antibiotics. Patient is now pending placement. Seizure disorder--stable, has significant tremors, nursing feels maybe seizure overnight will involve neurology this week for medication assessment -Seizure precautions -Continue Vimpat, lamotrigine, felbamate, gabapentin Resting tremor, will consider increasing Neurontin. -For now will continue current dose. Unfortunately Ayaz continues to be plagued by seizure disorder and severe essential tremor. He also continues to follow with Neurology and will do so at discharge as an outpatient. Intellectual disability, need assistance with adl's, will have OT eval to see if the longterm setting is appropriate for this patient dyspepsia? increase ppi to bid, consider EGD if still with issues DVT prophylaxis-SCDs Code Status-Level I, FULL RESUSCITATION STATUS Verbally signed out to APC at rehab facility. Total Time Spent: Greater than 30 minutes This includes examination of the patient, discharge planning, medication reconciliation, and communication with other providers. Discharge Instructions Please refer to the electronic Patient Visit Report (Discharge Instructions) for additional information. Follow-Up As noted in discharge instructions.
== END 2017-07-25 13:20 | DRG 177 ==
LOC: EDBD 13:05 → C.EDB 13:06 → C.MS4W 18:18 → ENRESERV 18:27
PROVIDERS: ADMIT Internal Medicine; ATTEND Internal Medicine Sports Medicine
DX: J69.0 Pneumonitis due to inhalation of food and vomit (principal); G93.40 Encephalopathy, unspecified; G40.909 Epilepsy, unspecified, not intractable, without status epilepticus; Z82.49 Family history of ischemic heart disease and other diseases of the circulatory system; Z88.2 Allergy status to sulfonamides; Z88.8 Allergy status to other drugs, medicaments and biological substances; R27.0 Ataxia, unspecified; S06.9X9S Unspecified intracranial injury with loss of consciousness of unspecified duration, sequela; R91.1 Solitary pulmonary nodule; G25.2 Other specified forms of tremor; R10.13 Epigastric pain; Z87.442 Personal history of urinary calculi; F79 Unspecified intellectual disabilities; E86.0 Dehydration

== ENCOUNTER 2017-09-29 16:00 | Emergency (ER) | payer OTHER ==
[~2017-09-29] VITALS: Ht 177.8 cm; Wt 74.1 kg
[~2017-09-29 16:00] MED LIST changes: -ACET-1256 PO; +ACET-1311 PO; +BSP15 PO; +CLOB1SUS PO; -DOCU-94 PO; +LACO50TA PO; -ONFI PO; +PROP80TA2 PO
[2017-09-29 16:07] VITALS: TEMP 36.8; O2SAT 94; Ht 177.8 cm; Wt 74.1 kg
[2017-09-29] MEDS ORDERED: SODIUM CHLORIDE 0.9% 1000ML 1,000 ML IV STA (16:13)
[2017-09-29 16:54] LABS: CREATININE 0.85 mg/dl (0.60-1.40); POTASSIUM 3.8 mmol/L (3.5-5.1)
--- NOTE | 2017-09-29 16:59 | EMERGENCY ROOM VISIT NOTE ---
History Report prepared by Candelaria: Alex Vela Under the Supervision of: Dr. Jona Dai M.D. First contact with patient: 16:13 Chief Complaint: SEIZURE Stated Complaint: SEIZURE Nursing Triage Summary: patient presents via als from home. patient nanny caregiver states he started to have a seizure at 1210 and has been getting worse and lasting longer. patient was given 2 doses of ativan in route by medic 2mg each dose. patient not having seizure at time of arrival to er History of Present Illness The patient is a 52 year old male who presents to the Emergency Room with complaints of a seizure. The patient's caregiver reports that at 12:15 PM today she noticed that the patient began staring blankly and became rigid and twitching, and she moved the patient from a chair to the couch. She reports that the seizure lasted for 16 minutes prior to EMT arrival. She states that the patient did not hit his head or fall, and reports that normally his seizures last for 15 minutes. The patient was given 2 doses of Ativan after EMT arrival. She states that Dr. Hernandez manages the patient's seizures. She states that the patient takes Onfi 5 mg BID, Vimpat 250 mg BID, Lamictal 350 mg BID, and Felbatol 600 mg BID, and reports that he has been taking his medications. No fevers. She does state that the patient has been eating and drinking less at home. Source of History: caregiver Onset: 12:15 PM today Position: other (global) Quality: other (seizure) Modifying Factors (Relieving): other (Ativan) Note: denies hitting head or falling Review of Systems See HPI for pertinent positives and negatives. A total of ten systems were reviewed and were otherwise negative. Past Medical & Surgical Medical Problems: (1) Altered mental status (2) Ambulatory dysfunction (3) Dehydration (4) Encephalopathy (5) Epilepsy (6) Hydronephrosis with ureteral calculus (7) Inguinal hernia (8) Kidney stone (9) Mild mental retardation (10) Nausea and vomiting (11) Rectal bleed (12) Seizure disorder (13) Seizures (14) Status epilepticus (15) TBI (traumatic brain injury) (16) Tegretol toxicity (17) Tremor (18) Urinary retention Family History Heart disease Hypertension Kidney disease Social History Smoking Status: Never Smoker Alcohol Use: none Drug Use: none Marital Status: single Housing Status: assisted living Occupation Status: disabled Current/Historical Medications Scheduled Buspirone HCl (Buspirone HCl), 30 MG PO HS Buspirone Hcl (Buspar), 15 MG PO QAM Carbamide Peroxide (Otic) (Carbamide Peroxide), 5-10 DROPS OT BID Clobazam (Onfi), 5 MG PO BID Felbamate (Felbamate), 600 MG PO BID Fluoxetine Hcl (Prozac), 20 MG PO DAILY Gabapentin (Neurontin), 100 MG PO TID Lacosamide (Vimpat), 200 MG PO BID Lamotrigine (Lamotrigine Er), 300 MG PO BID Lamotrigine (Lamictal Xr), 50 MG PO BID Lamotrigine (Lamictal), 2 TAB PO BID Multiple Vitamins W/ Minerals (Preservision Areds 2), 2 CAP PO QAM Omeprazole (Prilosec), 20 MG PO QAM Propranolol (Inderal), 80 MG PO BID Scheduled PRN Acetaminophen (Tylenol), 650 MG PO Q6 PRN for Pain or Fever Alum & Mag Hydrox-Simethicone (Antacid & Antigas 200-200-20 mg/5Ml), 30 ML PO Q6 PRN for Dextromethorphan Polistirex (Delsym), 10 ML PO Q12 PRN for Cough Loperamide Hcl (Imodium A-D), 4 MG PO UD PRN for Diarrhea Magnesium Hydroxide (Milk Of Magnesia), 30 ML PO UD PRN for Constipation Neomycin/Polymyx/Bacitr (Neosporin), 1 APPL TOP BID PRN for CUTS,SCRAPES, ABRASIONS Allergies Coded Allergies: Sulfamethoxazole w/Trimethoprim (Verified Allergy, Unknown, dizziness and increase in tremor, 09/29/17) Grapefruit (Verified Adverse Reaction, Unknown, INTERACTS WITH OTHER MEDS , 09/29/17) Ibuprofen (Verified Adverse Reaction, Unknown, avoids secondary to reactions with other medications, 09/29/17) Levetiracetam (Verified Adverse Reaction, Unknown, AGITATION, 09/29/17) Physical Exam Vital Signs Date Time Temp Pulse Resp B/P (MAP) Pulse Ox O2 Delivery O2 Flow Rate FiO2 09/29/17 18:48 58 16 131/84 94 09/29/17 16:59 56 16 122/76 95 Nasal Cannula 2.0 09/29/17 16:44 54 09/29/17 16:07 36.8 58 16 123/76 93 Room Air 09/29/17 16:07 94 Room Air Physical Exam Physical Exam HENT: Exam performed. Head: Normocephalic and atraumatic. Right Ear: External ear normal. No mastoid tenderness. Left Ear: External ear normal. No mastoid tenderness. Mouth/Throat: The oropharynx is clear and moist. No trismus in the jaw. No dental abscesses or uvula swelling. No oropharyngeal exudate or tonsillar abscesses. EYES: Conjunctivae and EOM are normal. Pupils are equal, round, and reactive to light. Right eye exhibits no discharge. Left eye exhibits no discharge. No scleral icterus. NECK: Normal range of motion. Neck supple. No JVD present. No spinous process tenderness present. No carotid bruit present. No rigidity. No tracheal deviation and normal range of motion present. No Brudzinski's sign and no Kernig 's sign noted. CV: Normal rate, regular rhythm, normal heart sounds and intact distal pulses. There is no peripheral edema. Palpable radial pulses bue. PULM/CHEST: Effort normal and breath sounds normal. No respiratory distress. No stridor. He has no wheezes. He has no rales. Chest Wall: He exhibits no tenderness. ABD: The abdomen is soft. Bowel sounds are normal. He has no distension. No mass is present. There is no tenderness. There is no rebound, no guarding, no Schaffer's sign and no tenderness at McBurney's point. Rovsig negative. MUSC/SKEL: Normal range of motion. There is no peripheral edema, tenderness or deformity. LYMPH: No cervical adenopathy. NEURO: Post-ictal. Following commands. Tremor at baseline for patient. Strength 4-5 bilateral upper and bilateral lower extremity's. Sensation intact. SKIN: Skin is warm and dry. He is not diaphoretic. Medical Decision & Procedures Laboratory Results 09/29/17 16:22 Test 09/29/17 16:22 09/29/17 17:10 Anion Gap 5.0 mmol/L (3-11) Est Creatinine Clear Calc Drug Dose 103.8 ml/min Estimated GFR () 115.3 Estimated GFR (Non- 99.5 BUN/Creatinine Ratio 13.8 (10-20) Calcium Level 9.0 mg/dl (8.5-10.1) Magnesium Level 1.7 mg/dl (1.8-2.4) Total Creatine Kinase 51 U/L (39-308) Urine Color DK YELLOW Urine Appearance CLEAR (CLEAR) Urine pH 5.5 (4.5-7.5) Urine Specific [place] 1.029 (1.000-1.030) Urine Protein NEG (NEG) Urine Glucose (UA) NEG (NEG) Urine Ketones NEG (NEG) Urine Occult Blood NEG (NEG) Urine Nitrite NEG (NEG) Urine Bilirubin NEG (NEG) Urine Urobilinogen NEG (NEG) Urine Leukocyte Esterase NEG (NEG) Laboratory results reviewed by me Medications Administered Medications (Trade) Dose Ordered Sig/Hugh Route Start Time Stop Time Status Last Admin Dose Admin Sodium Chloride 1,000 ml @ 999 mls/hr Q1H1M STAT IV 09/29/17 16:13 09/29/17 17:13 DC 09/29/17 16:13 999 MLS/HR Lamotrigine (Lamictal Tab) 100 mg NOW STAT PO 09/29/17 17:51 09/29/17 17:54 DC 09/29/17 18:34 100 MG ED Course 1609: The patient was evaluated in room C10. A complete history and physical exam was performed. 1613: Ordered Sodium Chloride 1000 ml @ 999 mls/hr IV 1748: Vital signs stable. Labs within normal limits. Given the patient's long history of seizure disorder and the fact that he had a typical seizure today with no preceding or concurrent head trauma no CT of the head ordered. I spoke with Dr. Hernandez - Neurology. He states to check the patient's Lamictal and Felbatol level. He recommends to give the patient an extra 100 mg of Lamictal now, as well as to increase his dosage to 400 mg BID and follow up with him.Ordered Lamictal 100 mg PO DISCHARGE - Plan of care discussed with family and questions answered. The family was given both verbal and printed discharge instructions. The family verbalized understanding and ability to comply. The family is to seek outpatient follow up as noted in the discharge instructions. The family verbalized understanding and ability to comply. The family is discharged in stable condition. The family was instructed to return for worsening symptoms. Medical Decision Vital signs stable. Labs within normal limits. Given the patient's long history of seizure disorder and the fact that he had a typical seizure today with no preceding or concurrent head trauma no CT of the head ordered. I spoke with Dr. David Young. He states to check the patient's Lamictal and Felbatol level. He recommends to give the patient an extra 100 mg of Lamictal now, as well as to increase his dosage to 400 mg BID and follow up with him.Ordered Lamictal 100 mg PO DISCHARGE - Plan of care discussed with family and questions answered. The family was given both verbal and printed discharge instructions. The family verbalized understanding and ability to comply. The family is to seek outpatient follow up as noted in the discharge instructions. The family verbalized understanding and ability to comply. The family is discharged in stable condition. The family was instructed to return for worsening symptoms. Medication Reconcilliation Current Medication List: was personally reviewed by me Blood Pressure Screening Patient's blood pressure: Normal blood pressure Blood pressure disposition: Did not require urgent referral Consults Time Called: 1650 Consulting Physician: Dr. David Young Returned Call: [address] David Young. He states to check the patient's Lamictal and Felbatol level. He recommends to give the patient an extra 100 mg of Lamictal now, as well as to increase his dosage to 400 mg BID and follow up with him. Impression Primary Impression: Seizures Scribe Attestation The scribe's documentation has been prepared under my direction and personally reviewed by me in its entirety. I confirm that the note above accurately reflects all work, treatment, procedures, and medical decision making performed by me. The chart was completed utilizing [employer] Speech voice recognition software. Grammatical errors, random word insertions, pronoun errors, and incomplete sentences are an occasional consequence of this system due to software limitations, ambient noise, and hardware issues. Any formal questions or concerns about the content, text, or information contained within the body of this dictation should be directly addressed to the physician for clarification. Departure Information Dispostion Home / Self-Care Prescriptions Lamotrigine (LAMICTAL) 200 Mg Tab 2 TAB PO BID for 30 Days, #120 TAB 0 Refills Prov: Jona Dai M.D. 09/29/17 Referrals Jose Juan Brady M.D. (PCP) Forms HOME CARE DOCUMENTATION FORM, IMPORTANT VISIT INFORMATION Patient Instructions My [facility] Additional Instructions Begin taking Lamictal 400 mg twice daily
[2017-09-29] MEDS ORDERED: LAMO200T PO (18:02)
[2017-09-29 18:48] VITALS: BP 131/84; PULSE 58; O2SAT 94
[2017-10-05 14:31] LABS: LAMICTAL (LAMOTRIGINE)**22060 17.9 mcg/mL (4.0-18.0)
== END 2017-09-29 18:12 | disposition home or self-care (01) ==
LOC: EDBD 16:00 → C.EDC 16:01
DX: G40.909 Epilepsy, unspecified, not intractable, without status epilepticus (principal); Z79.899 Other long term (current) drug therapy; Z88.2 Allergy status to sulfonamides; Z88.8 Allergy status to other drugs, medicaments and biological substances; Z91.018 Allergy to other foods

== ENCOUNTER 2017-09-30 04:05 | Emergency (ER) | payer OTHER ==
[~2017-09-30] VITALS: Ht 172.7 cm; Wt 67.0 kg
[~2017-09-30 04:05] MED LIST changes: -LACO50TA PO; +LAMO200T PO; -SENN-65 PO
[2017-09-30 04:12] VITALS: TEMP 37.1; Ht 172.7 cm; Wt 67.0 kg
--- NOTE | 2017-09-30 04:28 | EMERGENCY ROOM VISIT NOTE ---
History Report prepared by Candelaria: Nivia Perry Under the Supervision of: Dr. Macarena Lyons D.O. First contact with patient: 04:08 Chief Complaint: FALL Stated Complaint: FALL History of Present Illness The patient is a 52 year old male who presents to the Emergency Room with complaints of a a bump on his head due to a fall beginning around 1 hour officer captain. When asked, the patient notes he rolled out of bed and hit his head on the side of the dresser. He denies any LOC, headache, chest pain, or abdominal pain. As per nursing staff, the patient lives at a nursing home in [place] when he rolled out of bed tonight and hit his head. Source of History: patient, nursing staff Onset: around 1 hour officer captain Position: head Quality: other (bump on head due to fall) Timing: other (after falling from bed) Associated Symptoms: No LOC, No headache, No chest pain, No abdominal pain Review of Systems See HPI for pertinent positives & negatives. A total of 10 systems reviewed and were otherwise negative. Past Medical & Surgical Medical Problems: (1) Altered mental status (2) Ambulatory dysfunction (3) Dehydration (4) Encephalopathy (5) Epilepsy (6) Hydronephrosis with ureteral calculus (7) Inguinal hernia (8) Kidney stone (9) Mild mental retardation (10) Nausea and vomiting (11) Rectal bleed (12) Seizure disorder (13) Seizures (14) Status epilepticus (15) TBI (traumatic brain injury) (16) Tegretol toxicity (17) Tremor (18) Urinary retention Family History Heart disease Hypertension Kidney disease Social History Smoking Status: Never Smoker Alcohol Use: none Drug Use: none Marital Status: single Housing Status: assisted living Occupation Status: disabled Current/Historical Medications Scheduled Buspirone HCl (Buspirone HCl), 30 MG PO HS Buspirone Hcl (Buspar), 15 MG PO QAM Carbamide Peroxide (Otic) (Carbamide Peroxide), 5-10 DROPS OT BID Clobazam (Onfi), 5 MG PO BID Felbamate (Felbamate), 600 MG PO BID Fluoxetine Hcl (Prozac), 20 MG PO DAILY Gabapentin (Neurontin), 100 MG PO TID Lacosamide (Vimpat), 200 MG PO BID Lamotrigine (Lamotrigine Er), 300 MG PO BID Lamotrigine (Lamictal Xr), 50 MG PO BID Lamotrigine (Lamictal), 2 TAB PO BID Multiple Vitamins W/ Minerals (Preservision Areds 2), 2 CAP PO QAM Omeprazole (Prilosec), 20 MG PO QAM Propranolol (Inderal), 80 MG PO BID Scheduled PRN Acetaminophen (Tylenol), 650 MG PO Q6 PRN for Pain or Fever Alum & Mag Hydrox-Simethicone (Antacid & Antigas 200-200-20 mg/5Ml), 30 ML PO Q6 PRN for Dextromethorphan Polistirex (Delsym), 10 ML PO Q12 PRN for Cough Loperamide Hcl (Imodium A-D), 4 MG PO UD PRN for Diarrhea Magnesium Hydroxide (Milk Of Magnesia), 30 ML PO UD PRN for Constipation Neomycin/Polymyx/Bacitr (Neosporin), 1 APPL TOP BID PRN for CUTS,SCRAPES, ABRASIONS Allergies Coded Allergies: Sulfamethoxazole w/Trimethoprim (Verified Allergy, Unknown, dizziness and increase in tremor, 09/30/17) Grapefruit (Verified Adverse Reaction, Unknown, INTERACTS WITH OTHER MEDS , 09/30/17) Ibuprofen (Verified Adverse Reaction, Unknown, avoids secondary to reactions with other medications, 09/30/17) Levetiracetam (Verified Adverse Reaction, Unknown, AGITATION, 09/30/17) Physical Exam Vital Signs Date Time Temp Pulse Resp B/P (MAP) Pulse Ox O2 Delivery O2 Flow Rate FiO2 09/30/17 06:00 75 16 121/73 97 09/30/17 04:15 51 09/30/17 04:12 37.1 56 16 123/75 98 Room Air Physical Exam HEENT: Head - normocephalic. CephaloHematoma over the left parieto-occipital region. 3 cm linear laceration above the left eyebrow. Pupils are equal, round, and reactive to light. Extraocular eye muscles are intact and sclera are anicteric. Nose - moist nasal mucosa without evidence of trauma or discharge. Mouth - moist buccal mucosa with no trauma to the teeth or signs of malocclusion. Neck: The neck is supple and there is no pain to palpation over the posterior cervical spine and no obvious step-offs or deformities. There is no JVD or tracheal deviation. Chest: There are no signs of deformities, contusions or abrasions to the chest wall. There is no obvious crepitus or paradoxical chest rise. Heart: Regular, rate, and rhythm. There is a normal S1 and S2 with no murmurs, clicks, or gallops appreciated. Lungs: Clear to auscultation bilaterally with no wheezes, rales, or rhonchi. Abdomen: Soft, completely nontender, nondistended, with good bowel sounds. There is no sign of trauma such as contusions, abrasions or penetrations. There are no palpable pulsatile masses or hepatosplenomegaly. There is no guarding, rigidity, or rebound noted. Pelvis: Stable to rock and compression. Extremities: No obvious trauma, deformities, contusions, or edema. There are easily palpable peripheral pulses. Neuro: The patient is awake and alert at his neurological baseline. Muscle strength is 5 out of 5 in all 4 extremities. The patient does have a tremor at baseline. Otherwise, neuro exam is unremarkable. Back: The entire thoracic, lumbar, and sacral spine were palpated. There are no obvious step-offs or deformities noted. There are no obvious signs of trauma such as contusions abrasions penetrations noted to the back. Medical Decision & Procedures ER Provider Diagnostic Interpretation: Radiology results as stated below per my review and the radiologist's interpretation: CT HEAD Comparison 09/22/17 No ICH, mass effect or edema. No skull fracture. Radiologist: Daniele Barr M.D Phone: Procedure Location: Above the left eyebrow Total length: 3 cm Complexity: Simple The laceration was cleansed with sterile water and irrigated. The wound was fairly superficial. Examination revealed no injury to deep structures such as tendons, bone, or significant blood vessels. Debridement was not performed. The wound edges were approximated using Dermabond. Hemostasis and excellent approximation was achieved. Detailed wound care instructions and signs and symptoms of infection reviewed with the patient and securities consultant. No complications and the patient tolerated the procedure well. ED Course 0414: Past medical records reviewed. The patient was evaluated in room B11. A complete history and physical exam was performed. The wound on the left forehead was repaired with Dermabond. The patient will go for CT scan of the brain. 0516: I checked on the patient at this time. He was resting comfortably. 0530: I checked on the patient at this time. The patient was alseep and his securities consultant was now in the room. I discussed the patient's CT results. The patient 's securities consultant verbalized agreement of the treatment plan. He was discharged home. Medical Decision The patient is a 52 year old male who presents to the Emergency Room with complaints of a a bump on his head due to a fall beginning around 1 hour officer captain. Differential diagnosis includes closed head injury, facial laceration, C spine injury. This is a 52-year-old male patient with history of a traumatic brain injury and seizures who presents to the emergency department after falling out of bed at his nursing home. He did strike the left side of his head on dresser. He has a superficial laceration above the left eyebrow. This wound was cleansed, explored, and repaired with Dermabond. CT scan of the brain showed no acute traumatic injury. I discussed wound care and fall precautions with the patient and the caregiver. Medication Reconcilliation Current Medication List: was personally reviewed by me Blood Pressure Screening Patient's blood pressure: Normal blood pressure Blood pressure disposition: Did not require urgent referral Impression Primary Impression: Fall Additional Impression: Forehead laceration Scribe Attestation The scribe's documentation has been prepared under my direction and personally reviewed by me in its entirety. I confirm that the note above accurately reflects all work, treatment, procedures, and medical decision making performed by me. Departure Information Dispostion Home / Self-Care Referrals No Doctor, Assigned (PCP) Forms HOME CARE DOCUMENTATION FORM, IMPORTANT VISIT INFORMATION Patient Instructions My [facility] Additional Instructions Avoid using ointment on the skin glue. As it heals, it will flake off. rest with head elevated to decrease pain. Take fall precautions Problem Qualifiers Primary Impression: Fall Encounter type: initial encounter Qualified Codes: W19.XXXA - Unspecified fall, initial encounter Additional Impression: Forehead laceration Encounter type: initial encounter Qualified Codes: S01.81XA - Laceration without foreign body of other part of head, initial encounter
[2017-09-30 06:00] VITALS: BP 121/73; PULSE 75; O2SAT 97
--- NOTE | 2017-09-30 06:06 | DIAGNOSTIC IMAGING REPORT ---
HEAD WITHOUT CONTRAST (CT) CT DOSE: 921.40 mGy.cm HISTORY: Trauma. Mental status change. eval for trauma - fall from bed TECHNIQUE: Multiaxial CT images of the head were performed without the use of intravenous contrast. A dose lowering technique was utilized adhering to the principles of ALARA. Comparison: 09/23/2007 Findings: The paranasal sinuses and mastoid air cells are clear. The calvarium and skull base are intact. The ventricles and sulci are within normal limits. There is no mass, hematoma, midline shift, or acute infarct. Impression: No acute intracranial abnormality. The above report was generated using voice recognition software. It may contain grammatical, syntax or spelling errors. Electronically signed by: Rosendo Liang M.D. 09/30/2017 6:05 AM Dictated Date/Time: 09/30/2017 6:03 AM
== END 2017-09-30 06:00 | disposition home or self-care (01) ==
LOC: EDBD 04:05 → C.EDB 04:07
DX: S01.81XA Laceration without foreign body of other part of head, initial encounter (principal); W06.XXXA Fall from bed, initial encounter; W22.09XA Striking against other stationary object, initial encounter; G40.909 Epilepsy, unspecified, not intractable, without status epilepticus; F70 Mild intellectual disabilities; Z91.018 Allergy to other foods; Z88.8 Allergy status to other drugs, medicaments and biological substances

== ENCOUNTER 2017-10-03 14:11 | Emergency (ER) | payer OTHER ==
[2017-10-03] MEDS ORDERED: PROP80CA PO (15:13)
--- NOTE | 2017-10-03 15:18 | DIAGNOSTIC IMAGING REPORT ---
CHEST ONE VIEW PORTABLE HISTORY: Atypical CHEST PAIN COMPARISON: Chest 09/21/2017. FINDINGS: There are low lung volumes. The upper lung zones remain clear. Mild perihilar interstitial and vascular thickening suggestive of mild congestive change. The heart remains mildly enlarged. No pleural effusions. No pneumothorax. Increased markings at the lung bases may be due to vascular crowding from the low lung volumes. IMPRESSION: 1. Stable mild cardiomegaly. 2. Mild central pulmonary vascular congestion without overt edema. Electronically signed by: Marhsall Castillo M.D. 10/03/2017 3:17 PM Dictated Date/Time: 10/03/2017 3:15 PM
[2017-10-03 15:30] LABS: BASO % 0.1 %; BASO ABS # 0.01 K/uL (0-0.2); EOS % 0.1 %; EOS ABS # 0.01 K/uL (0-0.5); HEMATOCRIT 41.4 % (42-52); HEMOGLOBIN 13.8 g/dL (14.0-18.0); IG# 0.02 K/uL (0.00-0.02); LYMPH % 9.3 %; LYMPH ABS # 0.78 K/uL (1.2-3.4); MEAN CELL VOLUME 94.1 fL (80-100); MEAN CORPUSCULAR HEMOGLOBIN 31.4 pg (25-34); MEAN CORPUSCULAR HGB CONC 33.3 g/dl (32-36); MEAN PLATELET VOLUME 8.9 fL (7.4-10.4); MONO % 7.8 %; MONO ABS # 0.66 K/uL (0.11-0.59); NEUT % 82.5 %; NEUT ABS # 6.94 K/uL (1.4-6.5); PLATELET COUNT 139 K/uL (130-400); RED CELL DISTRIBUTION WIDTH CV 13.5 % (11.5-14.5); RED CELL DISTRIBUTION WIDTH SD 46.6 fL (36.4-46.3); WHITE BLOOD COUNT 8.42 K/uL (4.8-10.8)
[2017-10-03 15:38] LABS: PTT PATIENT 35.1 SECONDS (21.0-31.0)
[2017-10-03 15:54] LABS: BLOOD UREA NITROGEN 11 mg/dl (7-18); CALCIUM 9.2 mg/dl (8.5-10.1); CARBON DIOXIDE 31 mmol/L (21-32); CREATININE 0.96 mg/dl (0.60-1.40); GLUCOSE 98 mg/dl (70-99); LIPASE 187 U/L (73-393); POTASSIUM 3.9 mmol/L (3.5-5.1); SODIUM 142 mmol/L (136-145)
[2017-10-03 16:35] VITALS: BP 125/80; PULSE 74; TEMP 36.9; O2SAT 94
--- NOTE | 2017-10-03 16:54 | EMERGENCY ROOM VISIT NOTE ---
History Report prepared by [place]: Charlotte Philip Under the Supervision of: Dr. José Luis Fenton M.D. First contact with patient: 14:34 Chief Complaint: CHEST PAIN Stated Complaint: CHEST PAIN/COUGH /CUSTODIAL Nursing Triage Summary: patient from [facility], limited report received from EMS due to limited report provided by [facility]. EMS states patient with productive cough and chest pain with coughing. History of Present Illness The patient is a 52 year old male who presents to the Emergency Room with complaints of chest pain beginning today. Per [facility] staff, the patient has not been febrile. Per staff, the patient has been in the ER this week for a seizure and a head laceration secondary to a fall. Per staff, the patient has not had any trauma to the chest. Per nursing staff, the patient has had a productive cough and they state that the patient grabs his chest when he coughs. Limited HPI secondary to AMS. Source of History: nursing staff, other ([facility] staff member ) History Limited By: AMS Onset: today Position: chest Quality: other (pain) Associated Symptoms: + cough, No fevers Review of Systems Limited ROS secondary to AMS. Past Medical & Surgical Medical Problems: (1) Altered mental status (2) Ambulatory dysfunction (3) Dehydration (4) Encephalopathy (5) Epilepsy (6) Hydronephrosis with ureteral calculus (7) Inguinal hernia (8) Kidney stone (9) Mild mental retardation (10) Nausea and vomiting (11) Rectal bleed (12) Seizure disorder (13) Seizures (14) Status epilepticus (15) TBI (traumatic brain injury) (16) Tegretol toxicity (17) Tremor (18) Urinary retention Family History Heart disease Hypertension Kidney disease Social History Smoking Status: Never Smoker Alcohol Use: none Drug Use: none Marital Status: single Housing Status: assisted living Occupation Status: disabled Current/Historical Medications Scheduled Buspirone HCl (Buspirone HCl), 30 MG PO HS Buspirone Hcl (Buspar), 15 MG PO QAM Carbamide Peroxide (Otic) (Carbamide Peroxide), 5-10 DROPS OT BID Clobazam (Onfi), 5 MG PO BID Felbamate (Felbamate), 600 MG PO BID Fluoxetine Hcl (Prozac), 20 MG PO DAILY Gabapentin (Neurontin), 100 MG PO TID Lacosamide (Vimpat), 200 MG PO BID Lamotrigine (Lamotrigine Er), 300 MG PO BID Lamotrigine (Lamictal Xr), 50 MG PO BID Multiple Vitamins W/ Minerals (Preservision Areds 2), 2 CAP PO QAM Omeprazole (Prilosec), 20 MG PO QAM Propranolol Hcl (Propranolol Hcl Er), 80 MG PO BID Scheduled PRN Acetaminophen (Tylenol), 650 MG PO Q6 PRN for Pain or Fever Alum & Mag Hydrox-Simethicone (Antacid & Antigas 200-200-20 mg/5Ml), 30 ML PO Q6 PRN for Dextromethorphan Polistirex (Delsym), 10 ML PO Q12 PRN for Cough Loperamide Hcl (Imodium A-D), 4 MG PO UD PRN for Diarrhea Magnesium Hydroxide (Milk Of Magnesia), 30 ML PO UD PRN for Constipation Neomycin/Polymyx/Bacitr (Neosporin), 1 APPL TOP BID PRN for CUTS,SCRAPES, ABRASIONS Allergies Coded Allergies: Sulfamethoxazole w/Trimethoprim (Verified Allergy, Unknown, dizziness and increase in tremor, 09/30/17) Grapefruit (Verified Adverse Reaction, Unknown, INTERACTS WITH OTHER MEDS , 09/30/17) Ibuprofen (Verified Adverse Reaction, Unknown, avoids secondary to reactions with other medications, 09/30/17) Levetiracetam (Verified Adverse Reaction, Unknown, AGITATION, 09/30/17) Physical Exam Vital Signs Date Time Temp Pulse Resp B/P (MAP) Pulse Ox O2 Delivery O2 Flow Rate FiO2 10/03/17 16:35 36.9 74 21 125/80 94 10/03/17 16:11 74 21 10/03/17 15:41 60 25 10/03/17 15:11 61 23 94 10/03/17 14:41 59 22 93 10/03/17 14:31 Room Air 10/03/17 14:31 36.9 59 20 125/80 95 Room Air 10/03/17 14:23 126/82 10/03/17 14:21 59 10/03/17 14:15 125/80 Physical Exam GENERAL: Patient is in no acute distress. HEENT: No acute trauma, normocephalic atraumatic, mucous membranes moist, no nasal congestion, no scleral icterus. NECK: No stridor, no adenopathy, no meningismus, trachea is midline. LUNGS: Clear to auscultation bilaterally, no wheeze, no rhonchi, breath sounds equal. HEART: Without murmurs gallops or rubs, regular rate and rhythm. CHEST: Nontender chest wall. ABDOMEN: Soft, nontender, bowel sounds positive, no hernias, no peritonitis. EXTREMITIES: No cyanosis or edema, full range of motion of all the joints without pain or difficulty, no signs for acute trauma. NEUROLOGIC: Sleep but easily stimulated with just light touch. Does move all extremities. MR noted. Generalized tremor noted. SKIN: No rash, no jaundice, no diaphoresis. Medical Decision & Procedures ER Provider Diagnostic Interpretation: Radiology results as stated below per my review and radiologist interpretation: CHEST ONE VIEW PORTABLE HISTORY: Atypical CHEST PAIN COMPARISON: Chest 09/21/2017. FINDINGS: There are low lung volumes. The upper lung zones remain clear. Mild perihilar interstitial and vascular thickening suggestive of mild congestive change. The heart remains mildly enlarged. No pleural effusions. No pneumothorax. Increased markings at the lung bases may be due to vascular crowding from the low lung volumes. IMPRESSION: 1. Stable mild cardiomegaly. 2. Mild central pulmonary vascular congestion without overt edema. Electronically signed by: aMrshall Castillo M.D. 10/03/2017 3:17 PM Dictated Date/Time: 10/03/2017 3:15 PM Laboratory Results 10/03/17 15:04 Red Blood Count 4.40, Mean Corpuscular Volume 94.1, Mean Corpuscular Hemoglobin 31.4, Mean Corpuscular Hemoglobin Concent 33.3, Mean Platelet Volume 8.9, Neutrophils (%) (Auto) 82.5, Lymphocytes (%) (Auto) 9.3, Monocytes (%) (Auto) 7.8, Eosinophils (%) (Auto) 0.1, Basophils (%) (Auto) 0.1, Neutrophils # (Auto) 6.94, Lymphocytes # (Auto) 0.78, Monocytes # (Auto) 0.66, Eosinophils # (Auto) 0.01, Basophils # (Auto) 0.01 10/03/17 15:04 Test 10/03/17 15:04 White Blood Count 8.42 K/uL (4.8-10.8) Red Blood Count 4.40 M/uL (4.7-6.1) Hemoglobin 13.8 g/dL (14.0-18.0) Hematocrit 41.4 % (42-52) Mean Corpuscular Volume 94.1 fL (80-100) Mean Corpuscular Hemoglobin 31.4 pg (25-34) Mean Corpuscular Hemoglobin Concent 33.3 g/dl (32-36) Platelet Count 139 K/uL (130-400) Mean Platelet Volume 8.9 fL (7.4-10.4) Neutrophils (%) (Auto) 82.5 % Lymphocytes (%) (Auto) 9.3 % Monocytes (%) (Auto) 7.8 % Eosinophils (%) (Auto) 0.1 % Basophils (%) (Auto) 0.1 % Neutrophils # (Auto) 6.94 K/uL (1.4-6.5) Lymphocytes # (Auto) 0.78 K/uL (1.2-3.4) Monocytes # (Auto) 0.66 K/uL (0.11-0.59) Eosinophils # (Auto) 0.01 K/uL (0-0.5) Basophils # (Auto) 0.01 K/uL (0-0.2) RDW Standard Deviation 46.6 fL (36.4-46.3) RDW Coefficient of Variation 13.5 % (11.5-14.5) Immature Granulocyte % (Auto) 0.2 % Immature Granulocyte # (Auto) 0.02 K/uL (0.00-0.02) Prothrombin Time 10.4 SECONDS (9.0-12.0) Prothromb Time International Ratio 1.0 (0.9-1.1) Activated Partial Thromboplast Time 35.1 SECONDS (21.0-31.0) Partial Thromboplastin Ratio 1.4 Anion Gap 6.0 mmol/L (3-11) Estimated GFR () 104.2 Estimated GFR (Non- 89.9 BUN/Creatinine Ratio 11.5 (10-20) Calcium Level 9.2 mg/dl (8.5-10.1) Troponin I < 0.015 ng/ml (0-0.045) Lipase 187 U/L (73-393) Laboratory results reviewed by me. ECG Per My Interpretation Indication: chest pain Rate (beats per minute): 60 Rhythm: normal sinus Findings: nonspecific-ST abn (diffuse), other (no ST elevation, no PVCs) Change: no significant change ED Course 1436: The patient was evaluated in room B2. A complete history and physical exam was performed. 1631: Reevaluated the patient. Discussed results and discharge instructions with the [facility] staff worker who verbalized understanding and agreement. The patient is ready for discharge back to [facility]. Medical Decision The patient is a 52 year old male who presents to the ED with complaints of chest pain. Differential diagnoses considered include chest wall contusion, musculoskeletal pain, bronchitis, pneumonia, pneumothorax, anemia, dysrhythmia, and AR. There is no leukocytosis or worrisome anemia. No significant electrolyte abnormality or kidney failure. Chest x-ray does not show pneumonia, mediastinal widening or pneumothorax. EKG shows a normal sinus rhythm with some nonspecific change, no acute ischemia. Cardiac enzyme testing 1 is not consistent with acute cardiac injury. The patient presents with presumed chest pain, he has been grabbing his chest when he coughs. His workup here is reassuring. His pain across the chest may just be from coughing itself. There is no indication for antibiotic therapy as he does not have a fever, leukocytosis or abnormal chest film. He is being discharged with continued care through [facility], if worsening, he can return. Medication Reconcilliation Current Medication List: was personally reviewed by me Blood Pressure Screening Patient's blood pressure: Normal blood pressure Impression Primary Impression: Anterior chest wall pain Additional Impression: Cough Scribe Attestation The scribe's documentation has been prepared under my direction and personally reviewed by me in its entirety. I confirm that the note above accurately reflects all work, treatment, procedures, and medical decision making performed by me. Departure Information Dispostion Home / Self-Care Referrals Jose Juan Brady M.D. (PCP) Forms Call Back Authorization, HOME CARE DOCUMENTATION FORM, IMPORTANT VISIT INFORMATION Patient Instructions My [facility] Additional Instructions care as before heart testing was all ok no findings of pneumonia by workup lab work was all ok return for fever or if worsening Problem Qualifiers
[2017-10-04] MEDS ORDERED: DOCU-94 PO (17:57)
[2017-10-04] MEDS ORDERED: SENN-61 PO (17:57)
[2017-10-04] MEDS ORDERED: LAMO200T PO (17:57)
[2017-10-08] MEDS ORDERED: LMC100 PO (10:55)
[2017-10-08] MEDS ORDERED: FLM4 PO (10:55)
[2017-10-08] MEDS ORDERED: PRS5 PO (10:55)
== END 2017-10-03 16:36 | disposition home or self-care (01) ==
LOC: EDBD 14:11 → C.EDB 14:17
DX: R07.89 Other chest pain (principal); R05 Cough; G40.909 Epilepsy, unspecified, not intractable, without status epilepticus; F79 Unspecified intellectual disabilities; Z79.899 Other long term (current) drug therapy; Z88.2 Allergy status to sulfonamides; Z91.018 Allergy to other foods; Z88.6 Allergy status to analgesic agent; Z88.8 Allergy status to other drugs, medicaments and biological substances; Z82.49 Family history of ischemic heart disease and other diseases of the circulatory system

== ENCOUNTER 2017-10-04 13:49 | Inpatient (IN) | payer OTHER ==
[~2017-10-04] VITALS: Ht 175.3 cm; Wt 73.0 kg
[~2017-10-04 13:49] MED LIST changes: -LAMO200T PO; +PROP80CA PO; -PROP80TA2 PO
[2017-10-04] MEDS ORDERED: ONDANSETRON INJ 2 MG/ML 2 ML VIAL IV STA (14:51)
[2017-10-04] MEDS ORDERED: SODIUM CHLORIDE 0.9% 1000ML 1,000 ML IV STA (14:51)
--- NOTE | 2017-10-04 14:57 | EMERGENCY ROOM VISIT NOTE ---
History Report prepared by [place]: Concha Elliott Under the Supervision of: Dr. Lino Peters D.O. First contact with patient: 14:43 Chief Complaint: ILLNESS Stated Complaint: ILLNESS History of Present Illness The patient is a 52 year old male who presents to the Emergency Room with complaints of constant AMS beginning today. A staff member from his assisted states the patient is "not himself." She reports the patient was very weak today while doing PT, and began vomiting yellow/watery fluid, which he has not experienced with past seizures. She notes he has not vomited since that time. The staff member notes her has had some intermittent coughing. She denies any fevers. The staff member notes the patient last had a seizure 5 days ago, and was seen in the ED at that time. She reports the patient's Lamictal does was increased from 350 to 400 5 days ago, and denies any other recent medication change. The staff member notes in the past the patient has experienced similar AMS symptoms when he had pneumonia and medication complications. She notes he is generally able to answer questions but is not doing so today. Source of History: caregiver Onset: AMS Position: head Quality: other (AMS) Timing: constant Review of Systems See HPI for pertinent positives & negatives. A total of 10 systems reviewed and were otherwise negative. Past Medical & Surgical Medical Problems: (1) Altered mental status (2) Ambulatory dysfunction (3) Dehydration (4) Encephalopathy (5) Epilepsy (6) Hydronephrosis with ureteral calculus (7) Inguinal hernia (8) Kidney stone (9) Mild mental retardation (10) Nausea and vomiting (11) Rectal bleed (12) Seizure disorder (13) Seizures (14) Status epilepticus (15) TBI (traumatic brain injury) (16) Tegretol toxicity (17) Tremor (18) Urinary retention Family History Heart disease Hypertension Kidney disease Social History Smoking Status: Never Smoker Alcohol Use: none Drug Use: none Marital Status: single Housing Status: assisted living Occupation Status: disabled Current/Historical Medications Scheduled Buspirone HCl (Buspirone HCl), 30 MG PO HS Buspirone Hcl (Buspar), 15 MG PO QAM Carbamide Peroxide (Otic) (Carbamide Peroxide), 5-10 DROPS OT BID Clobazam (Onfi), 5 MG PO BID Docusate Sodium (Colace), 1 CAP PO BID Felbamate (Felbamate), 600 MG PO BID Fluoxetine Hcl (Prozac), 20 MG PO DAILY Gabapentin (Neurontin), 100 MG PO TID Lacosamide (Vimpat), 200 MG PO BID Lamotrigine (Lamictal), 400 MG PO BID Multiple Vitamins W/ Minerals (Preservision Areds 2), 2 CAP PO QAM Omeprazole (Prilosec), 20 MG PO QAM Propranolol Hcl (Propranolol Hcl Er), 80 MG PO BID Senna (Senokot), 1 TAB PO HS Scheduled PRN Acetaminophen (Tylenol), 650 MG PO Q6 PRN for Pain or Fever Alum & Mag Hydrox-Simethicone (Antacid & Antigas 200-200-20 mg/5Ml), 30 ML PO Q6 PRN for Dextromethorphan Polistirex (Delsym), 10 ML PO Q12 PRN for Cough Loperamide Hcl (Imodium A-D), 4 MG PO UD PRN for Diarrhea Magnesium Hydroxide (Milk Of Magnesia), 30 ML PO UD PRN for Constipation Neomycin/Polymyx/Bacitr (Neosporin), 1 APPL TOP BID PRN for CUTS,SCRAPES, ABRASIONS Allergies Coded Allergies: Sulfamethoxazole w/Trimethoprim (Verified Allergy, Unknown, dizziness and increase in tremor, 10/04/17) Grapefruit (Verified Adverse Reaction, Unknown, INTERACTS WITH OTHER MEDS , 10/04/17) Ibuprofen (Verified Adverse Reaction, Unknown, avoids secondary to reactions with other medications, 10/04/17) Levetiracetam (Verified Adverse Reaction, Unknown, AGITATION, 10/04/17) Physical Exam Vital Signs Date Time Temp Pulse Resp B/P (MAP) Pulse Ox O2 Delivery O2 Flow Rate FiO2 10/04/17 17:41 67 24 118/70 93 Room Air 10/04/17 16:30 59 104/64 93 Room Air 10/04/17 15:17 56 110/71 93 Room Air 10/04/17 14:04 36.5 56 127/73 93 Room Air 10/04/17 14:00 64 10/04/17 14:00 93 Room Air Physical Exam GENERAL: Patient is listless, slow to respond to commands, does not appear to follow commands completely. EYES: The conjunctivae are clear. The pupils are round and reactive. EARS, NOSE, MOUTH AND THROAT: The nose is without any evidence of any deformity. Mucous membranes are moist. Tongue is midline NECK: The neck is nontender and supple. RESPIRATORY: Diminished throughout, rales noted throughout CARDIOVASCULAR: Regular rate and rhythm noted. There no murmurs rubs or gallops normal S1 normal S2 GASTROINTESTINAL: The abdomen is soft. Bowel sounds are present in all quadrants. Abdomen is nontender. MUSCULOSKELETAL/EXTREMITIES: There is no evidence of gross deformity. Full range of motion is noted in the hips and shoulders. SKIN: Trace pedal edema bilaterally. NEUROLOGIC: Reflexes 3+ bilaterally. Patient was nonverbal and would not answer questions. Medical Decision & Procedures ER Provider Diagnostic Interpretation: Radiology results as stated below per my review and radiologist interpretation: CT HEAD WITHOUT CONTRAST (CT) CLINICAL HISTORY: Altered mental status. Weakness. COMPARISON STUDY: 09/30/2017 TECHNIQUE: Axial CT of the brain is performed from the vertex to the skull base. IV contrast was not administered for this examination. A dose lowering technique was utilized adhering to the principles of ALARA. CT DOSE: FINDINGS: No intra or extra-axial mass lesions are visualized. There is no CT evidence of acute cortical infarction. There is no evidence of midline shift. There is no acute hemorrhage. No calvarial fractures are visualized. There is no evidence of pathologic ventricular dilatation. There is no evidence of acute sinusitis IMPRESSION: No acute intracranial findings Electronically signed by: Terrence Liang M.D. 10/04/2017 3:35 PM Dictated Date/Time: 10/04/2017 3:33 PM CHEST ONE VIEW PORTABLE CLINICAL HISTORY: Altered mental status COMPARISON STUDY: 10/03/2017 FINDINGS: The heart is mildly enlarged. There is persistent mild perihilar interstitial thickening likely representing mild pulmonary vascular congestion. Bibasilar opacities, are likely atelectatic. IMPRESSION: 1. Mild cardiomegaly and mild central pulmonary vascular congestion 2. Stable basilar airspace opacities likely atelectatic Electronically signed by: Terrence Liang M.D. 10/04/2017 3:10 PM Dictated Date/Time: 10/04/2017 3:[address] SCAN OF THE ABDOMEN AND PELVIS WITHOUT CONTRAST CLINICAL HISTORY: vomiting COMPARISON STUDY: May 10, 2017 TECHNIQUE: CT scan of the abdomen and pelvis was performed from the lung bases to the proximal femurs. Images are reviewed in the axial, sagittal, and coronal planes. IV contrast was not administered for this examination. A dose lowering technique was utilized adhering to the principles of ALARA. CT DOSE: 990.48 mGy.cm FINDINGS: There is streak artifact, as the patient was scanned with his arms by his side. Lower chest: There are increased dependent basilar markings similar to the prior study. There is a calcified right lower lobe granuloma. Liver: The unenhanced liver is normal in size, contour, and attenuation. There is no intrahepatic biliary ductal dilatation. Gallbladder: Surgically absent Spleen: Normal in size and attenuation. Pancreas: Unremarkable. Adrenal glands: Unremarkable. Kidneys: The unenhanced kidneys are normal in size without hydronephrosis. There is no contour deforming renal mass lesion. No renal calculi are identified. Bowel: There are no transition zones indicate bowel obstruction. There is moderate fecal retention. There is no acute diverticulitis. There is a mildly distended fluid-filled appendix measuring 8 mm in diameter. Definite periappendiceal inflammatory changes are not visualized. Clinical correlation and follow-up is recommended as an early acute appendicitis cannot be excluded. Peritoneum: There is no intraperitoneal free air or abdominal ascites. Vasculature: The abdominal aorta is normal in course and caliber. Adenopathy: None. Pelvic viscera: The bladder, and pelvic viscera are unremarkable. Skeletal structures: There is bilateral L5 spondylolysis. There is an old superior endplate L2 compression deformity IMPRESSION: 1. No evidence of bowel obstruction. No evidence of free air 2. Fecal retention 3. No renal, ureteral, or bladder calculi identified 4. No evidence of acute diverticulitis 5. Fluid-filled mildly dilated appendix without definitive periappendiceal inflammatory change. Clinical correlation and follow-up is recommended as an early acute appendicitis cannot be excluded. Electronically signed by: Terrence Liang M.D. 10/04/2017 3:43 PM Dictated Date/Time: 10/04/2017 3:35 PM Laboratory Results 10/04/17 15:05 Red Blood Count 4.59, Mean Corpuscular Volume 93.9, Mean Corpuscular Hemoglobin 31.4, Mean Corpuscular Hemoglobin Concent 33.4, Mean Platelet Volume 9.1, Neutrophils (%) (Auto) 72.3, Lymphocytes (%) (Auto) 17.0, Monocytes (%) (Auto) 9.9, Eosinophils (%) (Auto) 0.6, Basophils (%) (Auto) 0.1, Neutrophils # (Auto) 5.11, Lymphocytes # (Auto) 1.20, Monocytes # (Auto) 0.70, Eosinophils # (Auto) 0.04, Basophils # (Auto) 0.01 10/04/17 15:08 Test 10/04/17 15:05 10/04/17 15:08 10/04/17 17:25 White Blood Count 7.07 K/uL (4.8-10.8) Red Blood Count 4.59 M/uL (4.7-6.1) Hemoglobin 14.4 g/dL (14.0-18.0) Hematocrit 43.1 % (42-52) Mean Corpuscular Volume 93.9 fL (80-100) Mean Corpuscular Hemoglobin 31.4 pg (25-34) Mean Corpuscular Hemoglobin Concent 33.4 g/dl (32-36) Platelet Count 142 K/uL (130-400) Mean Platelet Volume 9.1 fL (7.4-10.4) Neutrophils (%) (Auto) 72.3 % Lymphocytes (%) (Auto) 17.0 % Monocytes (%) (Auto) 9.9 % Eosinophils (%) (Auto) 0.6 % Basophils (%) (Auto) 0.1 % Neutrophils # (Auto) 5.11 K/uL (1.4-6.5) Lymphocytes # (Auto) 1.20 K/uL (1.2-3.4) Monocytes # (Auto) 0.70 K/uL (0.11-0.59) Eosinophils # (Auto) 0.04 K/uL (0-0.5) Basophils # (Auto) 0.01 K/uL (0-0.2) RDW Standard Deviation 47.3 fL (36.4-46.3) RDW Coefficient of Variation 13.8 % (11.5-14.5) Immature Granulocyte % (Auto) 0.1 % Immature Granulocyte # (Auto) 0.01 K/uL (0.00-0.02) Prothrombin Time 10.4 SECONDS (9.0-12.0) Prothromb Time International Ratio 1.0 (0.9-1.1) Activated Partial Thromboplast Time 41.5 SECONDS (21.0-31.0) Partial Thromboplastin Ratio 1.6 Anion Gap 5.0 mmol/L (3-11) Est Creatinine Clear Calc Drug Dose 95.4 ml/min Estimated GFR () 109.7 Estimated GFR (Non- 94.6 BUN/Creatinine Ratio 13.9 (10-20) Calcium Level 8.9 mg/dl (8.5-10.1) Magnesium Level 1.9 mg/dl (1.8-2.4) Total Bilirubin 0.8 mg/dl (0.2-1) Direct Bilirubin 0.3 mg/dl (0-0.2) Aspartate Amino Transf (AST/SGOT) 14 U/L (15-37) Alanine Aminotransferase (ALT/SGPT) 17 U/L (12-78) Alkaline Phosphatase 137 U/L (45-117) Troponin I < 0.015 ng/ml (0-0.045) Total Protein 7.3 gm/dl (6.4-8.2) Albumin 3.9 gm/dl (3.4-5.0) Lipase 155 U/L (73-393) Thyroid Stimulating Hormone (TSH) 0.679 uIu/ml (0.300-4.500) Laboratory results per my review. Medications Administered Medications (Trade) Dose Ordered Sig/Hugh Route Start Time Stop Time Status Last Admin Dose Admin Ondansetron HCl (Zofran Inj) 4 mg NOW STAT IV 10/04/17 14:51 10/04/17 14:52 DC 10/04/17 15:16 4 MG Sodium Chloride 1,000 ml @ 999 mls/hr Q1H1M STAT IV 10/04/17 14:51 10/04/17 15:51 DC 10/04/17 15:17 999 MLS/HR Bisacodyl (Dulcolax Supp) 10 mg NOW STAT [place] 10/04/17 17:54 10/04/17 19:14 DC 10/04/17 19:49 10 MG ECG Per My Interpretation Indication: altered mental status Rate (beats per minute): 56 Rhythm: sinus bradycardia Findings: T-wave inversion (Anterior), no acute ischemic change, no ectopy Comparison ECG Date: 10/03/17 Change: no significant change ED Course 1447: The patient was evaluated in room A2. A complete history and physical examination were performed. 1451: Ordered NSS 1,000 ml @ 999 mls/hr IV, Zofran Inj 4 mg IV 1641: I discussed the patient's case with Dr. Hernandez [facility] neurologist. He recommends admittance for further evaluation 1709: I discussed the patient's case with Dr. Cruz [facility] hospitalist. The patient will be evaluated for further management. 1712: I updated the patient's otr driver and father. They agree with the treatment plan. Medical Decision Etiologies such as metabolic, infection, hypoglycemia, electrolyte abnormalities , cardiac sources, intracerebral event, toxicologic, neurologic, as well as others were entertained. Nursing notes reviewed. Additional history is obtained from the caregiver as well as the patient's father. The patient is a 52-year-old male who presented to the emergency department for an evaluation of altered mental status. The patient has a history of frequent seizures. He also has a history of recent emesis and there was concern he may have aspirated. The patient did not appear to have any acute abnormality on CT the head but the more he was observed he did not appear to improve his mental status. I discussed his case with his primary neurologist. He was concerned this could be related to the patient's seizure medications. For this reason I discussed his case with the on-call [facility] hospitalist group. They have agreed to evaluate the patient in the emergency department for further management and disposition. Medication Reconcilliation Current Medication List: was personally reviewed by me Blood Pressure Screening Patient's blood pressure: Normal blood pressure Blood pressure disposition: Did not require urgent referral Consults Time Called: 1638 Consulting Physician: Dr. Hernandez [facility] neurologist Returned Call: 1641 I discussed the patient's case with Dr. Hernandez [facility] neurologist. He recommends admittance for further evaluation Additional Consults: Time Called: 1701 Consulted Physician: Dr. Cruz [facility] hospitalist Returned Call: 1709 Additional Comments: I discussed the patient's case with Dr. Cruz [facility] hospitalist. The patient will be evaluated for further management. Impression Primary Impression: Altered mental status Additional Impression: Vomiting Scribe Attestation The scribe's documentation has been prepared under my direction and personally reviewed by me in its entirety. I confirm that the note above accurately reflects all work, treatment, procedures, and medical decision making performed by me. Departure Information Dispostion Being Evaluated By Hospitalist Referrals Jose Juan Brady M.D. (PCP) Patient Instructions My [facility] Health Problem Qualifiers Primary Impression: Altered mental status Altered mental status type: unspecified Qualified Codes: R41.82 - Altered mental status, unspecified Additional Impression: Vomiting Vomiting type: unspecified Vomiting Intractability: non-intractable Nausea presence: unspecified Qualified Codes: R11.10 - Vomiting, unspecified
--- NOTE | 2017-10-04 15:11 | DIAGNOSTIC IMAGING REPORT ---
CHEST ONE VIEW PORTABLE CLINICAL HISTORY: Altered mental status COMPARISON STUDY: 10/03/2017 FINDINGS: The heart is mildly enlarged. There is persistent mild perihilar interstitial thickening likely representing mild pulmonary vascular congestion. Bibasilar opacities, are likely atelectatic.[ IMPRESSION: 1. Mild cardiomegaly and mild central pulmonary vascular congestion 2. Stable basilar airspace opacities likely atelectatic Electronically signed by: Terrence Liang M.D. 10/04/2017 3:10 PM Dictated Date/Time: 10/04/2017 3:09 PM
[2017-10-04 15:24] LABS: BASO % 0.1 %; BASO ABS # 0.01 K/uL (0-0.2); EOS % 0.6 %; EOS ABS # 0.04 K/uL (0-0.5); HEMATOCRIT 43.1 % (42-52); HEMOGLOBIN 14.4 g/dL (14.0-18.0); IG# 0.01 K/uL (0.00-0.02); MEAN CELL VOLUME 93.9 fL (80-100); MEAN CORPUSCULAR HEMOGLOBIN 31.4 pg (25-34); MEAN CORPUSCULAR HGB CONC 33.4 g/dl (32-36); MEAN PLATELET VOLUME 9.1 fL (7.4-10.4); MONO % 9.9 %; NEUT % 72.3 %; NEUT ABS # 5.11 K/uL (1.4-6.5); PLATELET COUNT 142 K/uL (130-400); RED CELL DISTRIBUTION WIDTH CV 13.8 % (11.5-14.5); RED CELL DISTRIBUTION WIDTH SD 47.3 fL (36.4-46.3); WHITE BLOOD COUNT 7.07 K/uL (4.8-10.8)
--- NOTE | 2017-10-04 15:36 | DIAGNOSTIC IMAGING REPORT ---
CT HEAD WITHOUT CONTRAST (CT) CLINICAL HISTORY: Altered mental status. Weakness. COMPARISON STUDY: 09/30/2017 TECHNIQUE: Axial CT of the brain is performed from the vertex to the skull base. IV contrast was not administered for this examination. A dose lowering technique was utilized adhering to the principles of ALARA. CT DOSE: FINDINGS: No intra or extra-axial mass lesions are visualized. There is no CT evidence of acute cortical infarction. There is no evidence of midline shift. There is no acute hemorrhage. No calvarial fractures are visualized. There is no evidence of pathologic ventricular dilatation. There is no evidence of acute sinusitis IMPRESSION: No acute intracranial findings Electronically signed by: Terrence Liang M.D. 10/04/2017 3:35 PM Dictated Date/Time: 10/04/2017 3:33 PM
[2017-10-04 15:37] LABS: PTT PATIENT 41.5 SECONDS (21.0-31.0)
--- NOTE | 2017-10-04 15:44 | DIAGNOSTIC IMAGING REPORT ---
CT SCAN OF THE ABDOMEN AND PELVIS WITHOUT CONTRAST CLINICAL HISTORY: vomiting COMPARISON STUDY: May 10, 2017 TECHNIQUE: CT scan of the abdomen and pelvis was performed from the lung bases to the proximal femurs. Images are reviewed in the axial, sagittal, and coronal planes. IV contrast was not administered for this examination. A dose lowering technique was utilized adhering to the principles of ALARA. CT DOSE: 990.48 mGy.cm FINDINGS: There is streak artifact, as the patient was scanned with his arms by his side. Lower chest: There are increased dependent basilar markings similar to the prior study. There is a calcified right lower lobe granuloma. Liver: The unenhanced liver is normal in size, contour, and attenuation. There is no intrahepatic biliary ductal dilatation. Gallbladder: Surgically absent Spleen: Normal in size and attenuation. Pancreas: Unremarkable. Adrenal glands: Unremarkable. Kidneys: The unenhanced kidneys are normal in size without hydronephrosis. There is no contour deforming renal mass lesion. No renal calculi are identified. Bowel: There are no transition zones indicate bowel obstruction. There is moderate fecal retention. There is no acute diverticulitis. There is a mildly distended fluid-filled appendix measuring 8 mm in diameter. Definite periappendiceal inflammatory changes are not visualized. Clinical correlation and follow-up is recommended as an early acute appendicitis cannot be excluded. Peritoneum: There is no intraperitoneal free air or abdominal ascites. Vasculature: The abdominal aorta is normal in course and caliber. Adenopathy: None. Pelvic viscera: The bladder, and pelvic viscera are unremarkable. Skeletal structures: There is bilateral L5 spondylolysis. There is an old superior endplate L2 compression deformity IMPRESSION: 1. No evidence of bowel obstruction. No evidence of free air 2. Fecal retention 3. No renal, ureteral, or bladder calculi identified 4. No evidence of acute diverticulitis 5. Fluid-filled mildly dilated appendix without definitive periappendiceal inflammatory change. Clinical correlation and follow-up is recommended as an early acute appendicitis cannot be excluded. Electronically signed by: Terrence Liang M.D. 10/04/2017 3:43 PM Dictated Date/Time: 10/04/2017 3:35 PM
[2017-10-04 16:00] LABS: ALBUMIN 3.9 gm/dl (3.4-5.0); ALKALINE PHOSPHATASE 137 U/L (45-117); ALT/SGPT 17 U/L (12-78); AST/SGOT 14 U/L (15-37); BLOOD UREA NITROGEN 13 mg/dl (7-18); CALCIUM 8.9 mg/dl (8.5-10.1); CARBON DIOXIDE 30 mmol/L (21-32); CREATININE 0.92 mg/dl (0.60-1.40); GLUCOSE 97 mg/dl (70-99); LIPASE 155 U/L (73-393); POTASSIUM 3.8 mmol/L (3.5-5.1); SODIUM 139 mmol/L (136-145); TOTAL PROTEIN 7.3 gm/dl (6.4-8.2)
[2017-10-04] MEDS ORDERED: BISACODYL 10 MG SUPP PR STA (17:54)
[2017-10-04] MEDS ORDERED: DOCU-94 PO (17:57)
[2017-10-04] MEDS ORDERED: LAMO200T PO (17:57)
[2017-10-04] MEDS ORDERED: SENN-61 PO (17:57)
[2017-10-04] MEDS ORDERED: POLYETHYLENE (MIRALAX) 17 GM PACK PO PRN (18:00)
[2017-10-04] MEDS ORDERED: MAGNESIUM HYDROXIDE SUSP 30 ML UDC PO PRN ×2 (18:00)
[2017-10-04] MEDS ORDERED: BISACODYL 10 MG SUPP PR PRN (18:00)
[2017-10-04] MEDS ORDERED: DEXTROMETHORPHAN POLYMR COMPLX 60 MG/10 ML UDP PO PRN (18:00)
[2017-10-04] MEDS ORDERED: ACETAMINOPHEN 325 MG TAB PO PRN ×2 (18:00)
[2017-10-04] MEDS ORDERED: NEOMYCIN/POLYMYX/BACITR OINT 15 GM TUBE TOP PRN (18:00)
[2017-10-04] MEDS ORDERED: ALUMINUM/MAGNESIUM/SIMETH (MAALOX MAX) 30 ML UDC PO PRN (18:00)
[2017-10-04] MEDS ORDERED: ONDANSETRON INJ 2 MG/ML 2 ML VIAL IV PRN (18:00)
--- NOTE | 2017-10-04 18:20 | History and Physical ---
History & Physical Date & Time of Service: Oct 04, 2017 at 18:03 Chief Complaint: Illness Primary Care Physician: Jose Juan Brady M.D. History of Present Illness Source: patient, caregiver, parent (father at bedside), clinic records, hospital records This is a 52 y/o male with a history of severe epilepsy, TBI, cognitive impairment, ambulatory dysfunction, benign familial tremor, BPH, and HLD who presented to the ED on 10/04 with altered mental status and vomiting. The patient is not currently responding appropriately to questions and cannot provide ROS. assisted caregiver and father at beside. Caregiver states he has been declining over the last month and this is his 7th ED visit in that time due to various reasons including fall, UTI, seizure. He has been having periods of AMS throughout this time. Caregiver states patient is usually able to answer questions himself. Last week he had a seizure and his Lamictal was increased at that time; she denies any other recent med changes. The caregiver does not that she does not think he has had a BM for quite some time. The patient vomited once today and then developed a non-productive cough. Caregiver denies fevers, shortness of breath, or wheezing. Past Medical/Surgical History Medical Problems: (1) Abdominal pain (2) Abrasion (3) Abscess (4) Acute electrocardiogram changes (5) Agitation (6) Altered mental status (7) Altered mental status (8) Ambulatory dysfunction (9) Anterior chest wall pain (10) Aspiration pneumonia (11) Ataxia (12) Cellulitis (13) Cervical strain (14) Change in mental status (15) Change in mental status (16) CHI (closed head injury) (17) Closed head injury (18) Closed head injury (19) Closed head injury (20) Closed head injury (21) Closed head injury (22) Contusion of lower back (23) Contusion of multiple sites (24) Contusion of occipital region of scalp (25) Cough (26) Degenerative arthritis of cervical spine (27) Dehydration (28) Fmsxwabjps-zghnboc-eknhspmhc (DTP) vaccination (29) Elevated troponin (30) Elevated troponin (31) Encephalopathy (32) Epilepsy (33) Facial trauma (34) Fall (35) Fall (36) Fall (37) Fall (38) Fall (39) Fall (40) Fall (41) Fall (42) Fall (43) Fall (44) Fall (45) Fall from bed (46) Fever of unknown origin (47) Forehead laceration (48) Forehead laceration (49) Head injury (50) Head injury, closed (51) Head pain (52) Head trauma (53) Hemorrhoids (54) History of seizure (55) Hydronephrosis with ureteral calculus (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 (57) Hypokalemia (58) Hypokalemia (59) Hypomagnesemia (60) Influenza-like symptoms (61) Inguinal hernia (62) Kidney stone (63) Laceration of scalp (64) Leukocytosis (65) Medication reaction (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 (67) Muscle tremor (68) Nausea and vomiting (69) Pneumonia (70) Pneumonia (71) Rectal bleed (72) Renal colic (73) Renal colic (74) Renal colic (75) Renal colic (76) Right ankle sprain (77) S/P lithotripsy (78) Seizure (79) Seizure (80) Seizure (81) Seizure disorder (82) Seizures (83) Shoulder pain, right (84) Status epilepticus (85) TBI (traumatic brain injury) (86) Tegretol toxicity (87) Thyroid nodule (88) Tremor (89) Urinary retention (90) Urinary tract infection (91) Weakness (92) Weakness (93) Wound dehiscence Family History Heart disease Hypertension Kidney disease Social History Smoking Status: Never Smoker Smokeless Tobacco Use: No Alcohol Use: none Drug Use: none Marital Status: single Housing status: other (long-term) Occupational Status: disabled Immunizations History of Influenza Vaccine: N/A Influenza Vaccine Date: Nov 03, 2009 History of Tetanus Vaccine?: Yes Tetanus Immunization Date: Jun 04, 2007 History of Pneumococcal: No History of Hepatitis B Vaccine: Unknown Hepatitis Immunization Date: Jun 04, 2007 Allergies Coded Allergies: Sulfamethoxazole w/Trimethoprim (Verified Allergy, Unknown, dizziness and increase in tremor, 10/04/17) Grapefruit (Verified Adverse Reaction, Unknown, INTERACTS WITH OTHER MEDS , 10/04/17) Ibuprofen (Verified Adverse Reaction, Unknown, avoids secondary to reactions with other medications, 10/04/17) Levetiracetam (Verified Adverse Reaction, Unknown, AGITATION, 10/04/17) Home Medications Scheduled Buspirone HCl (Buspirone HCl), 30 MG PO HS Buspirone Hcl (Buspar), 15 MG PO QAM Carbamide Peroxide (Otic) (Carbamide Peroxide), 5-10 DROPS OT BID Clobazam (Onfi), 5 MG PO BID Docusate Sodium (Colace), 1 CAP PO BID Felbamate (Felbamate), 600 MG PO BID Fluoxetine Hcl (Prozac), 20 MG PO DAILY Gabapentin (Neurontin), 100 MG PO TID Lacosamide (Vimpat), 200 MG PO BID Lamotrigine (Lamictal), 400 MG PO BID Multiple Vitamins W/ Minerals (Preservision Areds 2), 2 CAP PO QAM Omeprazole (Prilosec), 20 MG PO QAM Propranolol Hcl (Propranolol Hcl Er), 80 MG PO BID Senna (Senokot), 1 TAB PO HS Scheduled PRN Acetaminophen (Tylenol), 650 MG PO Q6 PRN for Pain or Fever Alum & Mag Hydrox-Simethicone (Antacid & Antigas 200-200-20 mg/5Ml), 30 ML PO Q6 PRN for Dextromethorphan Polistirex (Delsym), 10 ML PO Q12 PRN for Cough Loperamide Hcl (Imodium A-D), 4 MG PO UD PRN for Diarrhea Magnesium Hydroxide (Milk Of Magnesia), 30 ML PO UD PRN for Constipation Neomycin/Polymyx/Bacitr (Neosporin), 1 APPL TOP BID PRN for CUTS,SCRAPES, ABRASIONS Review of Systems Unable to obtain ROS from patient due to AMS. Physical Exam Vital Signs Date Time Temp Pulse Resp B/P (MAP) Pulse Ox O2 Delivery O2 Flow Rate FiO2 10/04/17 17:41 67 24 118/70 93 Room Air 10/04/17 16:30 59 104/64 93 Room Air 10/04/17 15:17 56 110/71 93 Room Air 10/04/17 14:04 36.5 56 127/73 93 Room Air 10/04/17 14:00 64 10/04/17 14:00 93 Room Air General appearance: Well-developed, well-nourished, no apparent distress Head: +Small laceration over left eyebrow. Normocephalic Eyes: +Exam limited by pt condition. Normal inspection, PERRL ENT: Normal ENT inspection, hearing grossly normal, pharynx normal Neck: Supple, no JVD, trachea midline Respiratory/Chest: +Decreased breath sounds. Lungs clear to auscultation, no respiratory distress Cardiovascular: +Systolic murmur. Regular rate & rhythm, no gallop Abdomen/GI: Normal bowel sounds, non-tender, soft Extremities/Musculoskeletal: Normal inspection, no calf tenderness, no pedal edema Neurological/Psych: +Lethargic but rouses to voice. Does not answer questioning. Unable to assess mood or orientation. Tremor is at baseline. Skin: Normal color, warm/dry, no rash Diagnostics Laboratory Results Results Past 24 Hours Test 10/04/17 15:05 10/04/17 15:08 10/04/17 17:25 Range/Units White Blood Count 7.07 4.8-10.8 K/uL Red Blood Count 4.59 4.7-6.1 M/uL Hemoglobin 14.4 14.0-18.0 g/dL Hematocrit 43.1 42-52 % Mean Corpuscular Volume 93.9 80-100 fL Mean Corpuscular Hemoglobin 31.4 25-34 pg Mean Corpuscular Hemoglobin Concent 33.4 32-36 g/dl Platelet Count 142 130-400 K/uL Mean Platelet Volume 9.1 7.4-10.4 fL Neutrophils (%) (Auto) 72.3 % Lymphocytes (%) (Auto) 17.0 % Monocytes (%) (Auto) 9.9 % Eosinophils (%) (Auto) 0.6 % Basophils (%) (Auto) 0.1 % Neutrophils # (Auto) 5.11 1.4-6.5 K/uL Lymphocytes # (Auto) 1.20 1.2-3.4 K/uL Monocytes # (Auto) 0.70 0.11-0.59 K/uL Eosinophils # (Auto) 0.04 0-0.5 K/uL Basophils # (Auto) 0.01 0-0.2 K/uL RDW Standard Deviation 47.3 36.4-46.3 fL RDW Coefficient of Variation 13.8 11.5-14.5 % Immature Granulocyte % (Auto) 0.1 % Immature Granulocyte # (Auto) 0.01 0.00-0.02 K/uL Prothrombin Time 10.4 9.0-12.0 SECONDS Prothromb Time International Ratio 1.0 0.9-1.1 Activated Partial Thromboplast Time 41.5 21.0-31.0 SECONDS Partial Thromboplastin Ratio 1.6 Sodium Level 139 136-145 mmol/L Potassium Level 3.8 3.5-5.1 mmol/L Chloride Level 104 98-107 mmol/L Carbon Dioxide Level 30 21-32 mmol/L Anion Gap 5.0 3-11 mmol/L Blood Urea Nitrogen 13 7-18 mg/dl Creatinine 0.92 0.60-1.40 mg/dl Est Creatinine Clear Calc Drug Dose 95.4 ml/min Estimated GFR () 109.7 Estimated GFR (Non- 94.6 BUN/Creatinine Ratio 13.9 10-20 Random Glucose 97 70-99 mg/dl Calcium Level 8.9 8.5-10.1 mg/dl Magnesium Level 1.9 1.8-2.4 mg/dl Total Bilirubin 0.8 0.2-1 mg/dl Direct Bilirubin 0.3 0-0.2 mg/dl Aspartate Amino Transf (AST/SGOT) 14 15-37 U/L Alanine Aminotransferase (ALT/SGPT) 17 12-78 U/L Alkaline Phosphatase 137 45-117 U/L Troponin I < 0.015 0-0.045 ng/ml Total Protein 7.3 6.4-8.2 gm/dl Albumin 3.9 3.4-5.0 gm/dl Lipase 155 73-393 U/L Thyroid Stimulating Hormone (TSH) 0.679 0.300-4.500 uIu/ml Diagnostic Radiology Reviewed the following studies and agree with interpretation as follows: CT HEAD WITHOUT CONTRAST (CT) CLINICAL HISTORY: Altered mental status. Weakness. COMPARISON STUDY: 09/30/2017 TECHNIQUE: Axial CT of the brain is performed from the vertex to the skull base. IV contrast was not administered for this examination. A dose lowering technique was utilized adhering to the principles of ALARA. CT DOSE: FINDINGS: No intra or extra-axial mass lesions are visualized. There is no CT evidence of acute cortical infarction. There is no evidence of midline shift. There is no acute hemorrhage. No calvarial fractures are visualized. There is no evidence of pathologic ventricular dilatation. There is no evidence of acute sinusitis IMPRESSION: No acute intracranial findings CHEST ONE VIEW PORTABLE CLINICAL HISTORY: Altered mental status COMPARISON STUDY: 10/03/2017 FINDINGS: The heart is mildly enlarged. There is persistent mild perihilar interstitial thickening likely representing mild pulmonary vascular congestion. Bibasilar opacities, are likely atelectatic.[ IMPRESSION: 1. Mild cardiomegaly and mild central pulmonary vascular congestion 2. Stable basilar airspace opacities likely atelectatic CT SCAN OF THE ABDOMEN AND PELVIS WITHOUT CONTRAST CLINICAL HISTORY: vomiting COMPARISON STUDY: May 10, 2017 TECHNIQUE: CT scan of the abdomen and pelvis was performed from the lung bases to the proximal femurs. Images are reviewed in the axial, sagittal, and coronal planes. IV contrast was not administered for this examination. A dose lowering technique was utilized adhering to the principles of ALARA. CT DOSE: 990.48 mGy.cm FINDINGS: There is streak artifact, as the patient was scanned with his arms by his side. Lower chest: There are increased dependent basilar markings similar to the prior study. There is a calcified right lower lobe granuloma. Liver: The unenhanced liver is normal in size, contour, and attenuation. There is no intrahepatic biliary ductal dilatation. Gallbladder: Surgically absent Spleen: Normal in size and attenuation. Pancreas: Unremarkable. Adrenal glands: Unremarkable. Kidneys: The unenhanced kidneys are normal in size without hydronephrosis. There is no contour deforming renal mass lesion. No renal calculi are identified. Bowel: There are no transition zones indicate bowel obstruction. There is moderate fecal retention. There is no acute diverticulitis. There is a mildly distended fluid-filled appendix measuring 8 mm in diameter. Definite periappendiceal inflammatory changes are not visualized. Clinical correlation and follow-up is recommended as an early acute appendicitis cannot be excluded. Peritoneum: There is no intraperitoneal free air or abdominal ascites. Vasculature: The abdominal aorta is normal in course and caliber. Adenopathy: None. Pelvic viscera: The bladder, and pelvic viscera are unremarkable. Skeletal structures: There is bilateral L5 spondylolysis. There is an old superior endplate L2 compression deformity IMPRESSION: 1. No evidence of bowel obstruction. No evidence of free air 2. Fecal retention 3. No renal, ureteral, or bladder calculi identified 4. No evidence of acute diverticulitis 5. Fluid-filled mildly dilated appendix without definitive periappendiceal inflammatory change. Clinical correlation and follow-up is recommended as an early acute appendicitis cannot be excluded. EKG Reviewed EKG and agree with interpretation as follows: 56 bpm, sinus bradycardia Impression Assessment and Plan 52 y/o male with a history of severe epilepsy, TBI, cognitive impairment, ambulatory dysfunction, benign familial tremor, BPH, and HLD who presented to the ED on 10/04 with altered mental status and vomiting. Pt afebrile, VSS on arrival. Head CT no acute disease. CXR with mild central pulmonary vascular congestion, no evidence of PNA. CT abdomen pelvis shows fecal retention, negative for obstruction. EKG no ischemic changes. Labs grossly unremarkable. Acute encephalopathy of unknown etiology--pt's Lamictal recently increased, also w/constipation which may be contributing -Admit to med/surg for obs -Consult neurology regarding AMS in setting of Lamictal change -Lamictal and gabapentin levels pending -No aspiration seen. Per caregiver, pt has been still feeding himself, no overt aspiration and no coughing. At times requires assistance feeding Constipation -Dulcolax suppository x 1 now, then daily prn constipation -Colace BID and Senna hs -Miralax, milk of magnesia prn -Caregiver states pt used to be on Colace and Senna every day for maintenance, but this was stopped in August when pt was at [facility] for unknown reasons Severe epilepsy--seizure on 09/29 -Consult neurology as above -Continue home meds for now, Lamictal, felbamate, gabapentin, Vimpat Benign familial tremor -Continue propranolol DVT prophylaxis -Enoxaparin 40 mg SC q24h -LAYLA Baxter Code Status -Level I, FULL RESUSCITATION STATUS -Father states no prolonged measures Resuscitation Status VTE Prophylaxis Will order VTE Prophylaxis: Yes
[2017-10-04] MEDS ORDERED: IV FLUIDS COMPLETED PRN (18:45)
[2017-10-04 19:46] VITALS: BP 154/62; PULSE 60; TEMP 36.9; O2SAT 90; Ht 175.3 cm; Wt 73.0 kg
[2017-10-04] MEDS: ENOXAPARIN 40 MG/0.4 ML SYR SQ SCH (21:58)
[2017-10-04] MEDS: CARBAMIDE PEROXIDE 6.5% 15 ML BTL OT SCH (21:58)
[2017-10-04] MEDS ORDERED: FELBAMATE 600 MG PO ONE (22:00)
[2017-10-04] MEDS: PROPRANOLOL HCL 80 MG LA CAP PO SCH (22:00)
[2017-10-04] MEDS: SENNA 8.6 MG TAB PO SCH (22:00)
[2017-10-04] MEDS: GABAPENTIN 100 MG CAP PO SCH (22:01)
[2017-10-04] MEDS: LACOSAMIDE 50 MG TAB PO SCH (22:01)
[2017-10-04] MEDS: DOCUSATE SODIUM 100 MG CAP PO SCH (22:01)
[2017-10-04] MEDS: BusPIRone 15 MG TAB PO SCH (22:01)
[2017-10-04 23:21] VITALS: BP 101/59; PULSE 66; TEMP 36.7; O2SAT 91
[2017-10-05 07:14] VITALS: BP 116/73; PULSE 57; TEMP 36.5; O2SAT 99
[2017-10-05 08:34] LABS: HEMOGLOBIN 13.2 g/dL (14.0-18.0); MEAN CELL VOLUME 94.3 fL (80-100); MEAN CORPUSCULAR HEMOGLOBIN 31.1 pg (25-34); MEAN PLATELET VOLUME 9.3 fL (7.4-10.4); PLATELET COUNT 143 K/uL (130-400); RED CELL DISTRIBUTION WIDTH CV 13.8 % (11.5-14.5); RED CELL DISTRIBUTION WIDTH SD 47.7 fL (36.4-46.3)
[2017-10-05] MEDS: BusPIRone 15 MG TAB PO SCH ×2 (08:37→20:25)
[2017-10-05] MEDS: DOCUSATE SODIUM 100 MG CAP PO SCH ×2 (08:38→20:18)
[2017-10-05] MEDS: PROPRANOLOL HCL 80 MG LA CAP PO SCH ×2 (08:38→20:20)
[2017-10-05] MEDS: GABAPENTIN 100 MG CAP PO SCH ×3 (08:39→20:21)
[2017-10-05] MEDS: CEROVITE ADV FORMULA TAB PO SCH (08:39)
[2017-10-05] MEDS: LACOSAMIDE 50 MG TAB PO SCH ×2 (08:40→20:23)
[2017-10-05] MEDS: FLUOXETINE HCL 20 MG CAP PO SCH (08:40)
[2017-10-05] MEDS: PANTOprazole SOD 40 MG TAB PO SCH (08:40)
[2017-10-05] MEDS ORDERED: POLYETHYLENE (MIRALAX) 17 GM PACK PO ONE (08:48)
[2017-10-05] MEDS: CARBAMIDE PEROXIDE 6.5% 15 ML BTL OT SCH ×2 (08:49→20:17)
[2017-10-05 08:54] LABS: CALCIUM 8.9 mg/dl (8.5-10.1); CREATININE 0.75 mg/dl (0.60-1.40); POTASSIUM 3.8 mmol/L (3.5-5.1)
[2017-10-05] MEDS ORDERED: LAMOTRIGINE 200 MG PO SCH (10:30)
[2017-10-05] MEDS: FELBAMATE 600 MG PO SCH ×2 (11:02→20:20)
--- NOTE | 2017-10-05 11:03 | Neurology Consultation ---
Neurology Consultation Date of Consultation: Oct 05, 2017. Attending Physician: Ag Murray MD, PhD Primary Care Physician: Jose Juan Brady M.D. Reason for Consultation: Seizure disorder, possible anticonvulsant toxicity History of Present Illness Source: clinic records, hospital records The patient is a 52-year-old male who is known to the neurology service. He typically follows with Dr. Hernandez and has a history refractory epilepsy, cognitive impairment, traumatic brain injury, and tremors. He presented to the emergency department on September 30 with a breakthrough seizure. His Lamictal dosage was increased from 350 milligrams twice daily to 400 milligrams twice daily at that time. He is also prescribed Onfi, felbamate, gabapentin, and Vimpat. He presented to the emergency department yesterday with worsening confusion, generalized weakness, and vomiting. [facility] and has not been doing very well recently with several other emergency department presentations for other issues noted including a fall, and urinary tract infection. The patient was nonverbal in the emergency department and additional historical information pertaining to his recent illness is not available. He remains nonverbal and poorly arousable this morning. Up-to-date lamotrigine and gabapentin levels have been ordered. A lamotrigine level from September 05, 2017 was 20.4 which is elevated outside of the standard therapeutic range. An EEG was completed earlier this year, in May, and revealed a moderate encephalopathy. A CT of the head completed yesterday was negative for acute process. Electrocardiogram revealed a sinus rhythm, 56 beats per minute. CBC within normal limits. Comprehensive metabolic panel within normal limits. An ammonia level was slightly elevated at 37. Past Medical/Surgical History Medical Problems: (1) Abdominal pain Status: Acute (2) Abscess Status: Acute (3) Acute electrocardiogram changes Status: Acute (4) Altered mental status Status: Acute (5) Anterior chest wall pain Status: Acute (6) Aspiration pneumonia Status: Acute (7) Cellulitis Status: Acute (8) Change in mental status Status: Acute (9) Change in mental status Status: Acute (10) Closed head injury Status: Acute (11) Closed head injury Status: Acute (12) Closed head injury Status: Acute (13) Closed head injury Status: Acute (14) Closed head injury Status: Acute (15) Contusion of lower back Status: Acute (16) Contusion of occipital region of scalp Status: Acute (17) Cough Status: Acute (18) Degenerative arthritis of cervical spine Status: Acute (19) Knadcbezdq-wejxpij-lkgfbaygq (DTP) vaccination Status: Acute (20) Facial trauma Status: Acute (21) Fall Status: Acute (22) Fall Status: Acute (23) Fall Status: Acute (24) Fall Status: Acute (25) Fall Status: Acute (26) Fall Status: Acute (27) Fall Status: Acute (28) Fall Status: Acute (29) Fall Status: Acute (30) Fall Status: Acute (31) Fall from bed Status: Acute (32) Fever of unknown origin Status: Acute (33) Forehead laceration Status: Acute (34) Head injury, closed Status: Acute (35) Head trauma Status: Acute (36) Hemorrhoids Status: Acute (37) History of seizure Status: Acute (38) Hypokalemia Status: Acute (39) Hypomagnesemia Status: Acute (40) Influenza-like symptoms Status: Acute (41) Laceration of scalp Status: Acute (42) Leukocytosis Status: Acute (43) Medication reaction Status: Acute (44) Muscle tremor Status: Acute (45) Pneumonia Status: Acute (46) Pneumonia Status: Acute (47) Seizure Status: Acute (48) Seizure Status: Acute (49) Seizure Status: Acute (50) Tremor Status: Chronic (51) Vomiting Status: Acute (52) Weakness Status: Acute (53) Weakness Status: Acute Family History Family history notable for hypertension and is otherwise noncontributory. Social History Smoking Status: Former smoker Smokeless Tobacco Use: No Alcohol Use: none Drug Use: none Marital Status: single Housing Status: assisted living Occupation Status: disabled Allergies Coded Allergies: Sulfamethoxazole w/Trimethoprim (Verified Allergy, Unknown, dizziness and increase in tremor, 10/04/17) Grapefruit (Verified Adverse Reaction, Unknown, INTERACTS WITH OTHER MEDS , 10/04/17) Ibuprofen (Verified Adverse Reaction, Unknown, avoids secondary to reactions with other medications, 10/04/17) Levetiracetam (Verified Adverse Reaction, Unknown, AGITATION, 10/04/17) Current Inpatient Medications Current Inpatient Medications Medications (Trade) Dose Ordered Sig/Hugh Route Start Time Stop Time Status Last Admin Dose Admin Enoxaparin Sodium (Lovenox Inj) 40 mg Q24H SQ 10/04/17 21:00 11/03/17 17:59 10/04/17 21:58 40 MG Acetaminophen (Tylenol Tab) 650 mg Q4H PRN PO 10/04/17 18:00 11/03/17 17:59 Al Hydrox/Mg Hydrox/Simethicone (Maalox Max Susp) 15 ml Q4H PRN PO 10/04/17 18:00 11/03/17 17:59 Magnesium Hydroxide (Milk Of Magnesia Susp) 30 ml Q6H PRN PO 10/04/17 18:00 11/03/17 17:59 Ondansetron HCl (Zofran Inj) 4 mg Q6H PRN IV 10/04/17 18:00 11/03/17 17:59 Buspirone HCl (BusPAR TAB) 30 mg HS PO 10/04/17 21:00 11/03/17 20:59 10/04/17 22:01 30 MG Buspirone HCl (BusPAR TAB) 15 mg QAM PO 10/05/17 08:00 11/04/17 08:59 10/05/17 08:37 15 MG Carbamide Peroxide (Earwax Removal Soln) 5 drops BID OT 10/04/17 20:04 10/08/17 20:59 10/05/17 08:49 5 DROPS Dextromethorphan Polymer Complex (Delsym Susp) 60 mg Q12 PRN PO 10/04/17 18:00 11/03/17 17:59 Docusate Sodium (coLACE CAP) 100 mg BID PO 10/04/17 20:04 11/03/17 20:59 10/05/17 08:38 100 MG Fluoxetine HCl (Prozac Cap) 20 mg DAILY PO 10/05/17 08:00 11/04/17 08:59 10/05/17 08:40 20 MG Gabapentin (Neurontin Cap) 100 mg TID PO 10/04/17 20:04 11/03/17 20:59 10/05/17 08:39 100 MG Neomycin/ Polymyxin/ Bacitracin (Neosporin Oint) 1 appln BID PRN TOP 10/04/17 18:00 11/03/17 17:59 Propranolol HCl (Inderal LA Cap) 80 mg BID PO 10/04/17 20:04 11/03/17 20:59 10/05/17 08:38 80 MG Senna (Senokot Tab) 8.6 mg HS PO 10/04/17 21:00 11/03/17 20:59 10/04/17 22:00 8.6 MG Miscellaneous Information (Order Awaiting Action) 1 ea QS N/A 10/05/17 00:00 11/04/17 00:00 Miscellaneous Information (Order Awaiting Action) 1 ea QS N/A 10/05/17 00:00 11/04/17 00:00 Lacosamide (Vimpat Tab) 200 mg BID PO 10/04/17 20:04 11/03/17 20:59 10/05/17 08:40 200 MG Miscellaneous Information (Order Awaiting Action) 1 ea QS N/A 10/05/17 00:00 11/04/17 00:00 Multivitamins/ Minerals (Multivitamin W/ Minerals Tab) 1 tab QAM PO 10/05/17 08:00 11/04/17 08:59 10/05/17 08:39 1 TAB Pantoprazole Sodium (Protonix Tab) 40 mg QAM PO 10/05/17 08:00 11/04/17 08:59 10/05/17 08:40 40 MG Bisacodyl (Dulcolax Supp) 10 mg DAILY PRN CO 10/04/17 18:00 11/03/17 17:59 Miscellaneous (Iv Fluids Completed) 1 ea PRN PRN N/A 10/04/17 18:45 10/04/18 18:44 Polyethylene (Miralax Powder Packet) 17 gm DAILY PO 10/06/17 08:00 11/03/17 17:59 Lamotrigine (Lamictal Xr) 400 mg BID PO 10/05/17 10:30 11/04/17 10:29 Felbamate (Felbatol) 600 mg BID PO 10/05/17 10:30 11/04/17 10:29 Clobazam (Onfi) 5 mg BID PO 10/05/17 10:30 11/04/17 10:29 Review of Systems Unable to obtain as patient is nonverbal Physical Exam Vital Signs (Past 24 Hrs): Date Time Temp Pulse Resp B/P (MAP) Pulse Ox O2 Delivery O2 Flow Rate FiO2 10/05/17 08:00 Nasal Cannula 2.0 10/05/17 07:14 36.5 57 18 116/73 (87) 99 Nasal Cannula 2.0 10/05/17 00:00 Room Air 10/04/17 23:21 36.7 66 16 101/59 (73) 91 Room Air 10/04/17 19:46 36.9 60 24 154/62 90 Room Air 10/04/17 19:41 70 93 10/04/17 18:19 67 10/04/17 17:41 67 24 118/70 93 Room Air 10/04/17 16:30 59 104/64 93 Room Air 10/04/17 15:17 56 110/71 93 Room Air 10/04/17 14:04 36.5 56 127/73 93 Room Air 10/04/17 14:00 64 10/04/17 14:00 93 Room Air This is a very limited neurological examination as the patient would not arouse from sleep. The patient is a well-developed middle-aged male. He is lying on responsive in bed and appears to be in a deep sleep. He arouses only briefly to voice and tactile stimulation and will briefly grown. He does not answer questions or follow commands. Testing of other higher integrated functions including memory, concentration, and fund of knowledge cannot be completed. Visual clifford cannot be assessed. Pupils are equal round and reactive to light. There is no gaze preference. Otherwise, eye movements cannot be fully assessed. There is no nystagmus. Facial sensation cannot be assessed. There is no facial droop. Corneal reflexes intact bilaterally. Hearing cannot be tested. Patient does not cooperate for evaluation palate or tongue movements. He does not cooperate for testing of shoulder shrug strength. Sensation cannot be tested. Deep tendon reflexes are intact and symmetrical throughout. Plantar responses are withdrawal bilaterally. Testing of coordination including dysmetria or dysdiadochokinesia cannot be completed. Patient is not cooperate for ophthalmological assessment and exhibits forced eyelid closure. Carotid pulses normal bilaterally, no bruits to auscultation. Gait and station cannot be tested. Testing of muscle strength cannot be completed. Muscle tone normal throughout. No atrophy. No abnormal movements observed at this time. Laboratory Results Past 24 Hours: 10/05/17 08:25 10/05/17 04:44 Test 10/04/17 15:05 10/04/17 15:08 10/04/17 17:25 10/04/17 19:39 Immature Granulocyte % (Auto) 0.1 % White Blood Count 7.07 K/uL (4.8-10.8) Red Blood Count 4.59 M/uL (4.7-6.1) Hemoglobin 14.4 g/dL (14.0-18.0) Hematocrit 43.1 % (42-52) Mean Corpuscular Volume 93.9 fL (80-100) Mean Corpuscular Hemoglobin 31.4 pg (25-34) Mean Corpuscular Hemoglobin Concent 33.4 g/dl (32-36) Platelet Count 142 K/uL (130-400) Mean Platelet Volume 9.1 fL (7.4-10.4) Neutrophils (%) (Auto) 72.3 % Lymphocytes (%) (Auto) 17.0 % Monocytes (%) (Auto) 9.9 % Eosinophils (%) (Auto) 0.6 % Basophils (%) (Auto) 0.1 % Neutrophils # (Auto) 5.11 K/uL (1.4-6.5) Lymphocytes # (Auto) 1.20 K/uL (1.2-3.4) Monocytes # (Auto) 0.70 K/uL (0.11-0.59) Eosinophils # (Auto) 0.04 K/uL (0-0.5) Basophils # (Auto) 0.01 K/uL (0-0.2) Immature Granulocyte # (Auto) 0.01 K/uL (0.00-0.02) Prothrombin Time 10.4 SECONDS (9.0-12.0) Prothromb Time International Ratio 1.0 (0.9-1.1) Activated Partial Thromboplast Time 41.5 SECONDS (21.0-31.0) Partial Thromboplastin Ratio 1.6 Magnesium Level 1.9 mg/dl (1.8-2.4) Total Bilirubin 0.8 mg/dl (0.2-1) Direct Bilirubin 0.3 mg/dl (0-0.2) Aspartate Amino Transf (AST/SGOT) 14 U/L (15-37) Alanine Aminotransferase (ALT/SGPT) 17 U/L (12-78) Alkaline Phosphatase 137 U/L (45-117) Troponin I < 0.015 ng/ml (0-0.045) Total Protein 7.3 gm/dl (6.4-8.2) Albumin 3.9 gm/dl (3.4-5.0) Lipase 155 U/L (73-393) Thyroid Stimulating Hormone (TSH) 0.679 uIu/ml (0.300-4.500) Test 10/04/17 20:36 10/05/17 04:44 10/05/17 08:25 Ammonia 37.0 umol/L (11-32) Anion Gap 5.0 mmol/L (3-11) Est Creatinine Clear Calc Drug Dose 114.0 ml/min Estimated GFR () 121.4 Estimated GFR (Non- 104.7 BUN/Creatinine Ratio 17.2 (10-20) Calcium Level 8.9 mg/dl (8.5-10.1) Red Blood Count 4.24 M/uL (4.7-6.1) Mean Corpuscular Volume 94.3 fL (80-100) Mean Corpuscular Hemoglobin 31.1 pg (25-34) Mean Corpuscular Hemoglobin Concent 33.0 g/dl (32-36) RDW Standard Deviation 47.7 fL (36.4-46.3) RDW Coefficient of Variation 13.8 % (11.5-14.5) Mean Platelet Volume 9.3 fL (7.4-10.4) Impression Encephalopathy which in part may be related to lamotrigine toxicity. Refractory seizure disorder in spite of treatment with multiple anticonvulsants. History of chronic cognitive deficits, traumatic brain injury, and tremors. These issues are part of this patient's neurological history but cannot really be fully assessed at this time. Plan Reduce Lamictal to 350 milligrams twice daily. Continue Onfi, felbamate, gabapentin, and Vimpat at the current dosages. Lamotrigine and gabapentin levels will probably be available in about 1 week. These levels can be followed up in the outpatient clinic. Continue supportive medical care, I expect his neurological status to gradually return to baseline.
[2017-10-05] MEDS: CLOBAZAM 10MG TABLET PO SCH ×2 (11:07→20:22)
--- NOTE | 2017-10-05 12:27 | Hospitalist Progress Note ---
Hospitalist Progress Note Date of Service Oct 05, 2017. Subjective Pt evaluation today including: conversation w/ patient, physical exam, chart review, lab review, review of inpatient medication list Patient slightly less lethargic today and answers some questions, but still cannot obtain reliable comprehensive ROS. Pt denies pain, shortness of breath, and vomiting. Per nursing, the patient had urinary retention last night and was straight cathed for 600 cc. Unclear if part of this is a communication issue/related to altered mental status. Pt did have very large BM just prior to my exam. Additional Comments: See HPI for pertinent positives and negatives. All other systems reviewed and negative. Objective Vital Signs Date Time Temp Pulse Resp B/P (MAP) Pulse Ox O2 Delivery O2 Flow Rate FiO2 10/05/17 08:00 Nasal Cannula 2.0 10/05/17 07:14 36.5 57 18 116/73 (87) 99 Nasal Cannula 2.0 10/05/17 00:00 Room Air 10/04/17 23:21 36.7 66 16 101/59 (73) 91 Room Air 10/04/17 19:46 36.9 60 24 154/62 90 Room Air 10/04/17 19:41 70 93 10/04/17 18:19 67 10/04/17 17:41 67 24 118/70 93 Room Air 10/04/17 16:30 59 104/64 93 Room Air 10/04/17 15:17 56 110/71 93 Room Air 10/04/17 14:04 36.5 56 127/73 93 Room Air 10/04/17 14:00 64 10/04/17 14:00 93 Room Air Physical Exam Notes: General appearance: Well-developed, well-nourished, no apparent distress Head: +Small laceration over left eyebrow. Normocephalic Eyes: Normal inspection, PERRL, EOMI ENT: Normal ENT inspection, hearing grossly normal, pharynx normal Neck: Supple, no JVD, trachea midline Respiratory/Chest: +Decreased breath sounds. Lungs clear to auscultation, no respiratory distress Cardiovascular: +Systolic murmur. Regular rate & rhythm, no gallop Abdomen/GI: Normal bowel sounds, non-tender, soft Extremities/Musculoskeletal: Normal inspection, no calf tenderness, no pedal edema Neurological/Psych: +Less lethargic today. Does answer some questions but not all speech intelligible. Oriented to himself and that he is in the hospital in [place]. Follows simple commands. Tremor is at baseline. Normal mood/ affect, oriented x 2 Skin: Normal color, warm/dry, no rash Laboratory Results Last 24 Hours Test 10/04/17 15:05 10/04/17 15:08 10/04/17 17:25 10/04/17 19:39 White Blood Count 7.07 K/uL Red Blood Count 4.59 M/uL Hemoglobin 14.4 g/dL Hematocrit 43.1 % Mean Corpuscular Volume 93.9 fL Mean Corpuscular Hemoglobin 31.4 pg Mean Corpuscular Hemoglobin Concent 33.4 g/dl Platelet Count 142 K/uL Mean Platelet Volume 9.1 fL Neutrophils (%) (Auto) 72.3 % Lymphocytes (%) (Auto) 17.0 % Monocytes (%) (Auto) 9.9 % Eosinophils (%) (Auto) 0.6 % Basophils (%) (Auto) 0.1 % Neutrophils # (Auto) 5.11 K/uL Lymphocytes # (Auto) 1.20 K/uL Monocytes # (Auto) 0.70 K/uL Eosinophils # (Auto) 0.04 K/uL Basophils # (Auto) 0.01 K/uL RDW Standard Deviation 47.3 fL RDW Coefficient of Variation 13.8 % Immature Granulocyte % (Auto) 0.1 % Immature Granulocyte # (Auto) 0.01 K/uL Prothrombin Time 10.4 SECONDS Prothromb Time International Ratio 1.0 Activated Partial Thromboplast Time 41.5 SECONDS Partial Thromboplastin Ratio 1.6 Sodium Level 139 mmol/L Potassium Level 3.8 mmol/L Chloride Level 104 mmol/L Carbon Dioxide Level 30 mmol/L Anion Gap 5.0 mmol/L Blood Urea Nitrogen 13 mg/dl Creatinine 0.92 mg/dl Est Creatinine Clear Calc Drug Dose 95.4 ml/min Estimated GFR () 109.7 Estimated GFR (Non- 94.6 BUN/Creatinine Ratio 13.9 Random Glucose 97 mg/dl Calcium Level 8.9 mg/dl Magnesium Level 1.9 mg/dl Total Bilirubin 0.8 mg/dl Direct Bilirubin 0.3 mg/dl Aspartate Amino Transf (AST/SGOT) 14 U/L Alanine Aminotransferase (ALT/SGPT) 17 U/L Alkaline Phosphatase 137 U/L Troponin I < 0.015 ng/ml Total Protein 7.3 gm/dl Albumin 3.9 gm/dl Lipase 155 U/L Thyroid Stimulating Hormone (TSH) 0.679 uIu/ml Test 10/04/17 20:36 10/05/17 04:44 10/05/17 08:25 Ammonia 37.0 umol/L Sodium Level 141 mmol/L Potassium Level 3.8 mmol/L Chloride Level 106 mmol/L Carbon Dioxide Level 30 mmol/L Anion Gap 5.0 mmol/L Blood Urea Nitrogen 13 mg/dl Creatinine 0.75 mg/dl Est Creatinine Clear Calc Drug Dose 114.0 ml/min Estimated GFR () 121.4 Estimated GFR (Non- 104.7 BUN/Creatinine Ratio 17.2 Random Glucose 94 mg/dl Calcium Level 8.9 mg/dl White Blood Count 8.20 K/uL Red Blood Count 4.24 M/uL Hemoglobin 13.2 g/dL Hematocrit 40.0 % Mean Corpuscular Volume 94.3 fL Mean Corpuscular Hemoglobin 31.1 pg Mean Corpuscular Hemoglobin Concent 33.0 g/dl RDW Standard Deviation 47.7 fL RDW Coefficient of Variation 13.8 % Platelet Count 143 K/uL Mean Platelet Volume 9.3 fL Assessment and Plan 52 y/o male with a history of severe epilepsy, TBI, cognitive impairment, ambulatory dysfunction, benign familial tremor, BPH, and HLD who presented to the ED on 10/04 with altered mental status and vomiting. Pt afebrile, VSS on arrival. Head CT no acute disease. CXR with mild central pulmonary vascular congestion, no evidence of PNA. CT abdomen pelvis shows fecal retention, negative for obstruction. EKG no ischemic changes. Labs grossly unremarkable. Acute encephalopathy of unknown etiology--pt's Lamictal recently increased, also w/constipation which may be contributing -Admit to med/surg -Consult neurology, appreciate recs: Possible Lamictal toxicity, level pending and can f/u as outpatient. Reduce back to Lamictal 350 mg PO BID. Expect mental status to gradually return to baseline. Continue other seizures meds at current doses. -Lamictal and gabapentin levels pending -No aspiration seen. Per caregiver, pt has been still feeding himself, no overt aspiration and no coughing. At times requires assistance feeding -TSH WNL -Ammonia slightly elevated at 37. Pt did have large BM today per nursing -Check B12, folate -Pt more alert today, answers some questions Constipation--improving, large BM today -Dulcolax suppository daily prn constipation -Colace BID and Senna hs -Miralax, milk of magnesia prn -Caregiver states pt used to be on Colace and Senna every day for maintenance, but this was stopped in August when pt was at [facility] for unknown reasons Urinary retention -Straight cathed for 600 cc last night -Continue bladder scan prn for now -Per nursing, pt is refusing to use bed maldonado, doesn't understand that this is also a "toilet" he can use. Father is coming in, will try having him explain as well that bed pain is ok to use and won't soil bed Severe epilepsy--seizure on 09/29 -Consult neurology as above -Lamictal reduced to 350 mg PO BID -Continue home Onfi, felbamate, gabapentin, Vimpat Benign familial tremor--stable, at baseline -Continue propranolol DVT prophylaxis -Enoxaparin 40 mg SC q24h -LAYLA lang and SCDs Code Status -Level I, FULL RESUSCITATION STATUS -Father states no prolonged measures
[2017-10-05] MEDS: SODIUM CHLORIDE 0.9% 1000ML 1,000 ML IV SCH (14:54)
[2017-10-05 15:28] VITALS: BP 113/68; PULSE 63; TEMP 36.5; O2SAT 99
[2017-10-05] MEDS: SENNA 8.6 MG TAB PO SCH (20:25)
[2017-10-05] MEDS: ENOXAPARIN 40 MG/0.4 ML SYR SQ SCH (20:26)
[2017-10-05 23:09] VITALS: BP 101/65; PULSE 51; TEMP 36.2; O2SAT 100
[2017-10-06] MEDS: SODIUM CHLORIDE 0.9% 1000ML 1,000 ML IV SCH ×2 (03:54→18:36)
[2017-10-06 06:21] LABS: HEMATOCRIT 38.4 % (42-52); HEMOGLOBIN 12.6 g/dL (14.0-18.0); MEAN CELL VOLUME 94.6 fL (80-100); MEAN CORPUSCULAR HGB CONC 32.8 g/dl (32-36); MEAN PLATELET VOLUME 9.3 fL (7.4-10.4); PLATELET COUNT 126 K/uL (130-400); RED CELL DISTRIBUTION WIDTH CV 13.5 % (11.5-14.5); RED CELL DISTRIBUTION WIDTH SD 46.4 fL (36.4-46.3); WHITE BLOOD COUNT 4.91 K/uL (4.8-10.8)
[2017-10-06 06:38] LABS: CALCIUM 8.6 mg/dl (8.5-10.1); CREATININE 0.7 mg/dl (0.60-1.40); POTASSIUM 3.7 mmol/L (3.5-5.1)
[2017-10-06 07:07] VITALS: BP 120/65; PULSE 53; TEMP 36.3; O2SAT 100
[2017-10-06] MEDS: BusPIRone 15 MG TAB PO SCH ×2 (07:58→20:10)
[2017-10-06] MEDS: LACOSAMIDE 50 MG TAB PO SCH ×2 (07:59→20:09)
[2017-10-06] MEDS: CEROVITE ADV FORMULA TAB PO SCH (07:59)
[2017-10-06] MEDS: PROPRANOLOL HCL 80 MG LA CAP PO SCH ×2 (07:59→20:14)
[2017-10-06] MEDS: DOCUSATE SODIUM 100 MG CAP PO SCH ×2 (07:59→20:14)
[2017-10-06] MEDS: PANTOprazole SOD 40 MG TAB PO SCH (07:59)
[2017-10-06] MEDS: GABAPENTIN 100 MG CAP PO SCH ×3 (08:00→20:13)
[2017-10-06] MEDS: CARBAMIDE PEROXIDE 6.5% 15 ML BTL OT SCH ×2 (08:01→20:19)
[2017-10-06] MEDS: FLUOXETINE HCL 20 MG CAP PO SCH (08:01)
[2017-10-06] MEDS: POLYETHYLENE (MIRALAX) 17 GM PACK PO SCH (08:01)
[2017-10-06] MEDS: CLOBAZAM 10MG TABLET PO SCH ×2 (08:03→20:17)
[2017-10-06] MEDS: FELBAMATE 600 MG PO SCH ×2 (08:04→20:18)
--- NOTE | 2017-10-06 09:04 | Neurology Progress Notes ---
Neurology Progress Note Date of Service Oct 06, 2017. Subjective Follow-up for seizure disorder, encephalopathy The patient is a bit more alert this morning. He is sitting up in bed and eating breakfast with assistance. He is generally tremulous and exhibits slow processing speed and a stuttering this fluent pattern of speech which is typical for him but a bit more pronounced than usual. He remains modestly confused and does not really provide any specific details or complaints at this time. I would reduce his dosage of Lamictal from 400 milligrams twice daily to 350 milligrams twice daily yesterday as lamotrigine toxicity was likely, in part , responsible for his encephalopathy. His other anticonvulsant medications were left unchanged. He was found to have some fecal and urinary retention. These issues have been addressed. A CT of the head completed at the time of presentation was unremarkable, no evidence of acute process. The gabapentin and lamotrigine levels remain pending at this time. An ammonia level is slightly elevated at the time of admission. Objective Date Time Temp Pulse Resp B/P (MAP) Pulse Ox O2 Delivery O2 Flow Rate FiO2 10/06/17 07:07 36.3 53 18 120/65 (83) 100 Nasal Cannula 2.0 10/06/17 00:00 Nasal Cannula 2.0 10/05/17 23:09 36.2 51 16 101/65 (77) 100 Nasal Cannula 1.5 10/05/17 19:40 Nasal Cannula 2.0 10/05/17 15:28 36.5 63 20 113/68 (83) 99 Nasal Cannula 2.0 Last 24 Hours Test 10/05/17 12:36 10/05/17 19:30 10/06/17 05:59 10/06/17 06:00 Vitamin B12 Level 419 pg/mL Folate 16.20 ng/mL Urine Color DK YELLOW Urine Appearance CLEAR Urine pH 5.5 Urine Specific [place] 1.036 Urine Protein TRACE Urine Glucose (UA) NEG Urine Ketones 1+ Urine Occult Blood NEG Urine Nitrite NEG Urine Bilirubin NEG Urine Urobilinogen NEG Urine Leukocyte Esterase TRACE Urine WBC (Auto) 1-5 /hpf Urine RBC (Auto) 0-4 /hpf Urine Hyaline Casts (Auto) 1-5 /lpf Urine Epithelial Cells (Auto) 10-20 /lpf Urine Bacteria (Auto) NEG Sodium Level 141 mmol/L Potassium Level 3.7 mmol/L Chloride Level 106 mmol/L Carbon Dioxide Level 29 mmol/L Anion Gap 6.0 mmol/L Blood Urea Nitrogen 12 mg/dl Creatinine 0.70 mg/dl Est Creatinine Clear Calc Drug Dose 122.1 ml/min Estimated GFR () 124.9 Estimated GFR (Non- 107.7 BUN/Creatinine Ratio 17.3 Random Glucose 87 mg/dl Calcium Level 8.6 mg/dl White Blood Count 4.91 K/uL Red Blood Count 4.06 M/uL Hemoglobin 12.6 g/dL Hematocrit 38.4 % Mean Corpuscular Volume 94.6 fL Mean Corpuscular Hemoglobin 31.0 pg Mean Corpuscular Hemoglobin Concent 32.8 g/dl RDW Standard Deviation 46.4 fL RDW Coefficient of Variation 13.5 % Platelet Count 126 K/uL Mean Platelet Volume 9.3 fL Exam: As above, the patient is a bit more alert this morning. He was observed sitting up in bed eating breakfast with assistance. He is able to state his name but is otherwise not oriented to place or time. His speech has a slow, disfluency stuttering quality. He does not participate very well with the examination or answer specific questions very clearly. His speech is not grossly dysarthric, however. He does not participate well with testing of other higher integrated cognitive functions. Attention is poor. Visual clifford grossly full to confrontation. Pupils equal round react to light. Eye movements intact. No gaze preference or nystagmus. No facial droop or weakness. As above, patient exhibits a fairly continuous generalized tremulousness which appears to be a mix of resting and postural tremor with elements of myoclonic jerking. Current Inpatient Medications Medications (Trade) Dose Ordered Sig/Hugh Route Start Time Stop Time Status Last Admin Dose Admin Enoxaparin Sodium (Lovenox Inj) 40 mg Q24H SQ 10/04/17 21:00 11/03/17 17:59 10/05/17 20:26 40 MG Acetaminophen (Tylenol Tab) 650 mg Q4H PRN PO 10/04/17 18:00 11/03/17 17:59 Al Hydrox/Mg Hydrox/Simethicone (Maalox Max Susp) 15 ml Q4H PRN PO 10/04/17 18:00 11/03/17 17:59 Magnesium Hydroxide (Milk Of Magnesia Susp) 30 ml Q6H PRN PO 10/04/17 18:00 11/03/17 17:59 Ondansetron HCl (Zofran Inj) 4 mg Q6H PRN IV 10/04/17 18:00 11/03/17 17:59 Buspirone HCl (BusPAR TAB) 30 mg HS PO 10/04/17 21:00 11/03/17 20:59 10/05/17 20:25 30 MG Buspirone HCl (BusPAR TAB) 15 mg QAM PO 10/05/17 08:00 11/04/17 08:59 10/06/17 07:58 15 MG Carbamide Peroxide (Earwax Removal Soln) 5 drops BID OT 10/04/17 20:04 10/08/17 20:59 10/06/17 08:01 5 DROPS Dextromethorphan Polymer Complex (Delsym Susp) 60 mg Q12 PRN PO 10/04/17 18:00 11/03/17 17:59 Docusate Sodium (coLACE CAP) 100 mg BID PO 10/04/17 20:04 11/03/17 20:59 10/06/17 07:59 100 MG Fluoxetine HCl (Prozac Cap) 20 mg DAILY PO 10/05/17 08:00 11/04/17 08:59 10/06/17 08:01 20 MG Gabapentin (Neurontin Cap) 100 mg TID PO 10/04/17 20:04 11/03/17 20:59 10/06/17 08:00 100 MG Neomycin/ Polymyxin/ Bacitracin (Neosporin Oint) 1 appln BID PRN TOP 10/04/17 18:00 11/03/17 17:59 Propranolol HCl (Inderal LA Cap) 80 mg BID PO 10/04/17 20:04 11/03/17 20:59 10/06/17 07:59 80 MG Senna (Senokot Tab) 8.6 mg HS PO 10/04/17 21:00 11/03/17 20:59 10/05/17 20:25 8.6 MG Lacosamide (Vimpat Tab) 200 mg BID PO 10/04/17 20:04 11/03/17 20:59 10/06/17 07:59 200 MG Multivitamins/ Minerals (Multivitamin W/ Minerals Tab) 1 tab QAM PO 10/05/17 08:00 9/2/18 08:59 10/06/17 07:59 1 TAB Pantoprazole Sodium (Protonix Tab) 40 mg QAM PO 10/05/17 08:00 11/04/17 08:59 10/06/17 07:59 40 MG Bisacodyl (Dulcolax Supp) 10 mg DAILY PRN LA 10/04/17 18:00 11/03/17 17:59 Miscellaneous (Iv Fluids Completed) 1 ea PRN PRN N/A 10/04/17 18:45 10/04/18 18:44 Polyethylene (Miralax Powder Packet) 17 gm DAILY PO 10/06/17 08:00 11/03/17 17:59 10/06/17 08:01 17 GM Felbamate (Felbatol) 600 mg BID PO 10/05/17 10:30 11/04/17 10:29 10/06/17 08:04 600 MG Clobazam (Onfi) 5 mg BID PO 10/05/17 10:30 11/04/17 10:29 10/06/17 08:03 5 MG Lamotrigine (Lamictal Tab) 350 mg BID PO 10/05/17 20:00 11/04/17 19:59 10/06/17 08:00 350 MG Sodium Chloride 1,000 ml @ 75 mls/hr [id number] IV 10/05/17 14:45 10/06/17 17:24 10/06/17 03:54 75 MLS/HR Impression This patient's encephalopathy appears to be modestly improved compared with yesterday. As above, he is more alert and does interact with the examiner today. His generalized tremor and myoclonic type jerking has returned which is his typical baseline. His processing speed and attention are impaired and he is not yet back at his typical baseline. Plan Continue with the recently reduced dosage of Lamictal, 350 milligrams twice daily. Continue with his other anticonvulsants. The dosages of these medications were not changed during this admission. Continue supportive medical care.
--- NOTE | 2017-10-06 10:29 | Hospitalist Progress Note ---
Hospitalist Progress Note Date of Service Oct 06, 2017. Subjective Pt evaluation today including: conversation w/ patient, physical exam, chart review, lab review, review of inpatient medication list Patient sleeping upon exam this morning. He does open his eyes to stimuli but then goes back to sleep. Unable to obtain ROS. Per nursing, the patient had a busy morning. He was alert this morning and did well eating breakfast and taking his medications. He sat up a bit this morning and was awake during Dr. Rashid's visit. Visited patient again in the afternoon as nurse had noted patient was thrashing , more agitated and trying to throw himself out of bed. Just prior to this episode, the patient had been more alert again, and he had just been sat up to get ready to eat lunch. He was then laid back down flat. Pt able to talk during this episode, oriented to person and place, and opened his eyes on my command. He was not able to verbalize specific complaints and his speech is somewhat garbled, but it sounded like he may have complained of something hurting. Pt bladder scanned for 441 cc, straight cathed for 500 cc. Pt had also seemed to be struggling with excess secretions during episode w/audible gurgling, but he was able to spit most of this out. By end of my visit, pt appeared much calmer and was resting. Additional Comments: Unable to obtain ROS. Objective Vital Signs Date Time Temp Pulse Resp B/P (MAP) Pulse Ox O2 Delivery O2 Flow Rate FiO2 10/06/17 08:00 Nasal Cannula 2.0 10/06/17 07:07 36.3 53 18 120/65 (83) 100 Nasal Cannula 2.0 10/06/17 00:00 Nasal Cannula 2.0 10/05/17 23:09 36.2 51 16 101/65 (77) 100 Nasal Cannula 1.5 10/05/17 19:40 Nasal Cannula 2.0 10/05/17 15:28 36.5 63 20 113/68 (83) 99 Nasal Cannula 2.0 Physical Exam Notes: General appearance: Well-developed, well-nourished, no apparent distress Head: +Small laceration over left eyebrow, healing. Normocephalic Eyes: Normal inspection, PERRL, EOMI ENT: Normal ENT inspection, hearing grossly normal, pharynx normal Neck: Supple, no JVD, trachea midline Respiratory/Chest: +Decreased breath sounds. Lungs clear to auscultation, no respiratory distress Cardiovascular: +Systolic murmur. Regular rate & rhythm, no gallop Abdomen/GI: Normal bowel sounds, non-tender, soft Extremities/Musculoskeletal: Normal inspection, no calf tenderness, no pedal edema Neurological/Psych: +Sleepy during initial visit, opens eyes to stimuli but did not answer questions, just went back to sleep. On second visit, pt agitated , at times jerking limbs but awake and talking. Pt seemed to calm down after rolling onto stomach. Unable to verbalize complaints but may have complained of some pain. Appeared more comfortable s/p straight cath. Pt oriented to person and place. Pt tearful at times during second visit but cannot state what is wrong. Skin: Normal color, warm/dry, no rash Laboratory Results Last 24 Hours Test 10/05/17 12:36 10/05/17 19:30 10/06/17 05:59 10/06/17 06:00 Vitamin B12 Level 419 pg/mL Folate 16.20 ng/mL Urine Color DK YELLOW Urine Appearance CLEAR Urine pH 5.5 Urine Specific [place] 1.036 Urine Protein TRACE Urine Glucose (UA) NEG Urine Ketones 1+ Urine Occult Blood NEG Urine Nitrite NEG Urine Bilirubin NEG Urine Urobilinogen NEG Urine Leukocyte Esterase TRACE Urine WBC (Auto) 1-5 /hpf Urine RBC (Auto) 0-4 /hpf Urine Hyaline Casts (Auto) 1-5 /lpf Urine Epithelial Cells (Auto) 10-20 /lpf Urine Bacteria (Auto) NEG Sodium Level 141 mmol/L Potassium Level 3.7 mmol/L Chloride Level 106 mmol/L Carbon Dioxide Level 29 mmol/L Anion Gap 6.0 mmol/L Blood Urea Nitrogen 12 mg/dl Creatinine 0.70 mg/dl Est Creatinine Clear Calc Drug Dose 122.1 ml/min Estimated GFR () 124.9 Estimated GFR (Non- 107.7 BUN/Creatinine Ratio 17.3 Random Glucose 87 mg/dl Calcium Level 8.6 mg/dl White Blood Count 4.91 K/uL Red Blood Count 4.06 M/uL Hemoglobin 12.6 g/dL Hematocrit 38.4 % Mean Corpuscular Volume 94.6 fL Mean Corpuscular Hemoglobin 31.0 pg Mean Corpuscular Hemoglobin Concent 32.8 g/dl RDW Standard Deviation 46.4 fL RDW Coefficient of Variation 13.5 % Platelet Count 126 K/uL Mean Platelet Volume 9.3 fL Diagnostic Results Reviewed the following studies and agree with interpretation as follows: ULTRASOUND KIDNEYS AND BLADDER CLINICAL HISTORY: Urinary retention. COMPARISON STUDY: Abdominal CT dated 10/04/2017. TECHNIQUE: Real-time, grayscale, and color flow sonography of the kidneys and bladder is performed. Images are reviewed in the transverse and longitudinal planes. FINDINGS: Kidneys: The kidneys are normal in size and echotexture. The right kidney measures 10.3 cm in length and the left kidney measures 11.2 cm in length. There is no hydronephrosis. No shadowing renal calculi are identified. There is no sonographic evidence of contour deforming renal mass lesion. No perinephric fluid is identified. Bladder: The bladder is bladder is decompressed and not well evaluated. Ureteral jets could not be assessed. IMPRESSION: 1. The kidneys are normal in size and without hydronephrosis. 2. The bladder was decompressed and could not be assessed. Assessment and Plan 52 y/o male with a history of severe epilepsy, TBI, cognitive impairment, ambulatory dysfunction, benign familial tremor, BPH, and HLD who presented to the ED on 10/04 with altered mental status and vomiting. Pt afebrile, VSS on arrival. Head CT no acute disease. CXR with mild central pulmonary vascular congestion, no evidence of PNA. CT abdomen pelvis shows fecal retention, negative for obstruction. EKG no ischemic changes. Labs grossly unremarkable. Acute encephalopathy of unknown etiology--pt's Lamictal recently increased, also w/constipation which may be contributing -Admit to med/surg -Consult neurology, appreciate recs: Appears moderately improved but not yet back to baseline. Possible Lamictal toxicity, level pending and can f/u as outpatient. Continue reduced Lamictal dose of 350 mg PO BID. Other anticonvulsants not changed. -Lamictal and gabapentin levels pending -Pt spit up water last night, per nurse seemed to aspirate but appeared to get all of water out. Now spitting out thick white mucus, nurse will swab for remaining mucus -TSH WNL -Ammonia slightly elevated at 37. Pt did have large BM 10/05 -B12, folate WNL -UA negative Constipation--improving, large BM on 10/05 -Dulcolax suppository daily prn constipation -Colace BID and Senna hs -Miralax, milk of magnesia prn -Caregiver states pt used to be on Colace and Senna every day for maintenance, but this was stopped in August when pt was at [facility] for unknown reasons Urinary retention, decreased urinary output--ongoing -Continue bladder scan prn for now. Hold off on Ayala as pt likely to pull out -Pt was not voiding on 10/05, but bladder scans were only around 100 cc. Started on NSS at 75 cc/hr to help increase urinary output -Renal function looks good/WNL, no signs dehydration -Renal and bladder ultrasound unremarkable -PSA WNL -Start empiric Flomax 0.4 mg PO hs, consider urology c/s Severe epilepsy--seizure on 09/29 -Consult neurology as above -Lamictal reduced to 350 mg PO BID -Continue home Onfi, felbamate, gabapentin, Vimpat Benign familial tremor--stable, at baseline -Continue propranolol DVT prophylaxis -Enoxaparin 40 mg SC q24h -LAYLA Baxter Code Status -Level I, FULL RESUSCITATION STATUS -Father states no prolonged measures Total time spent in direct patient care across multiple visits 75 minutes.
--- NOTE | 2017-10-06 14:53 | DIAGNOSTIC IMAGING REPORT ---
ULTRASOUND KIDNEYS AND BLADDER CLINICAL HISTORY: Urinary retention. COMPARISON STUDY: Abdominal CT dated 10/04/2017. TECHNIQUE: Real-time, grayscale, and color flow sonography of the kidneys and bladder is performed. Images are reviewed in the transverse and longitudinal planes. FINDINGS: Kidneys: The kidneys are normal in size and echotexture. The right kidney measures 10.3 cm in length and the left kidney measures 11.2 cm in length. There is no hydronephrosis. No shadowing renal calculi are identified. There is no sonographic evidence of contour deforming renal mass lesion. No perinephric fluid is identified. Bladder: The bladder is bladder is decompressed and not well evaluated. Ureteral jets could not be assessed. IMPRESSION: 1. The kidneys are normal in size and without hydronephrosis. 2. The bladder was decompressed and could not be assessed. Electronically signed by: José Luis Major M.D. 10/06/2017 2:52 PM Dictated Date/Time: 10/06/2017 2:50 PM
[2017-10-06 15:05] VITALS: BP 118/70; PULSE 52; TEMP 36.6; O2SAT 96
[2017-10-06] MEDS: TAMSULOSIN HCL 0.4 MG CAP PO SCH (20:10)
[2017-10-06] MEDS: SENNA 8.6 MG TAB PO SCH (20:13)
[2017-10-06] MEDS: ENOXAPARIN 40 MG/0.4 ML SYR SQ SCH (20:19)
[2017-10-07 00:02] VITALS: BP 115/67; PULSE 50; TEMP 36.8; O2SAT 96
[2017-10-07 06:51] LABS: HEMATOCRIT 35.6 % (42-52); HEMOGLOBIN 11.8 g/dL (14.0-18.0); MEAN CELL VOLUME 93.7 fL (80-100); MEAN CORPUSCULAR HEMOGLOBIN 31.1 pg (25-34); MEAN CORPUSCULAR HGB CONC 33.1 g/dl (32-36); MEAN PLATELET VOLUME 8.8 fL (7.4-10.4); PLATELET COUNT 123 K/uL (130-400); RED CELL DISTRIBUTION WIDTH CV 13.5 % (11.5-14.5); RED CELL DISTRIBUTION WIDTH SD 46.1 fL (36.4-46.3); WHITE BLOOD COUNT 4.24 K/uL (4.8-10.8)
[2017-10-07 07:19] LABS: CALCIUM 8.3 mg/dl (8.5-10.1); CREATININE 0.73 mg/dl (0.60-1.40); POTASSIUM 3.7 mmol/L (3.5-5.1)
[2017-10-07 07:48] VITALS: BP 99/76; PULSE 74; TEMP 36.5; O2SAT 95
[2017-10-07] MEDS: CEROVITE ADV FORMULA TAB PO SCH (08:04)
[2017-10-07] MEDS: GABAPENTIN 100 MG CAP PO SCH ×3 (08:04→20:31)
[2017-10-07] MEDS: DOCUSATE SODIUM 100 MG CAP PO SCH ×2 (08:04→20:31)
[2017-10-07] MEDS: SODIUM CHLORIDE 0.9% 1000ML 1,000 ML IV SCH ×2 (08:04→21:33)
[2017-10-07] MEDS: PANTOprazole SOD 40 MG TAB PO SCH (08:04)
[2017-10-07] MEDS: FLUOXETINE HCL 20 MG CAP PO SCH (08:04)
[2017-10-07] MEDS: LACOSAMIDE 50 MG TAB PO SCH ×2 (08:05→20:31)
[2017-10-07] MEDS: BusPIRone 15 MG TAB PO SCH ×2 (08:06→20:31)
[2017-10-07] MEDS: PROPRANOLOL HCL 80 MG LA CAP PO SCH ×2 (08:06→20:29)
[2017-10-07] MEDS: CARBAMIDE PEROXIDE 6.5% 15 ML BTL OT SCH ×2 (08:07→20:29)
[2017-10-07] MEDS: POLYETHYLENE (MIRALAX) 17 GM PACK PO SCH (08:07)
[2017-10-07] MEDS: CLOBAZAM 10MG TABLET PO SCH ×2 (08:13→20:36)
--- NOTE | 2017-10-07 11:33 | Hospitalist Progress Note ---
Hospitalist Progress Note Date of Service Oct 07, 2017. Subjective Pt evaluation today including: conversation w/ patient, physical exam, chart review, lab review, review of inpatient medication list Per nursing, patient was doing well last night, alert and actually conversing with staff. This morning he is less talkative and became agitated again but stopped when asked to stop. Apparently the patient does have a history of some behavioral disturbances like we have seen, and today he stops these behaviors on command. He complains to me of lower abdominal pain and is about due for a bladder scan. Unable to obtain more comprehensive or reliable ROS. Additional Comments: Unable to obtain comprehensive, reliable ROS. Objective Vital Signs Date Time Temp Pulse Resp B/P (MAP) Pulse Ox O2 Delivery O2 Flow Rate FiO2 10/07/17 08:15 Room Air 10/07/17 07:48 36.5 74 20 99/76 (84) 95 Room Air 10/07/17 00:48 Room Air 10/07/17 00:02 36.8 50 20 115/67 (83) 96 Room Air 10/06/17 15:05 36.6 52 18 118/70 (86) 96 Room Air Physical Exam Notes: General appearance: Well-developed, well-nourished, no apparent distress Head: +Small laceration over left eyebrow, healing. Normocephalic Eyes: Normal inspection, PERRL, EOMI ENT: Normal ENT inspection, hearing grossly normal, pharynx normal Neck: Supple, no JVD, trachea midline Respiratory/Chest: +Decreased breath sounds. Lungs clear to auscultation, no respiratory distress Cardiovascular: +Systolic murmur. Regular rate & rhythm, no gallop Abdomen/GI: Normal bowel sounds, non-tender, soft Extremities/Musculoskeletal: Normal inspection, no calf tenderness, no pedal edema Neurological/Psych: +Pt calm, resting on my exam. Disoriented to time. Tremor at baseline. Follows commands. Alert, normal mood/affect, oriented x 2. Skin: Normal color, warm/dry, no rash Laboratory Results Last 24 Hours Test 10/06/17 13:27 10/07/17 06:42 Prostate Specific Antigen 0.726 ng/ml White Blood Count 4.24 K/uL Red Blood Count 3.80 M/uL Hemoglobin 11.8 g/dL Hematocrit 35.6 % Mean Corpuscular Volume 93.7 fL Mean Corpuscular Hemoglobin 31.1 pg Mean Corpuscular Hemoglobin Concent 33.1 g/dl RDW Standard Deviation 46.1 fL RDW Coefficient of Variation 13.5 % Platelet Count 123 K/uL Mean Platelet Volume 8.8 fL Sodium Level 142 mmol/L Potassium Level 3.7 mmol/L Chloride Level 105 mmol/L Carbon Dioxide Level 31 mmol/L Anion Gap 6.0 mmol/L Blood Urea Nitrogen 12 mg/dl Creatinine 0.73 mg/dl Est Creatinine Clear Calc Drug Dose 117.1 ml/min Estimated GFR () 122.7 Estimated GFR (Non- 105.9 BUN/Creatinine Ratio 16.0 Random Glucose 87 mg/dl Calcium Level 8.3 mg/dl Assessment and Plan 52 y/o male with a history of severe epilepsy, TBI, cognitive impairment, ambulatory dysfunction, benign familial tremor, BPH, and HLD who presented to the ED on 10/04 with altered mental status and vomiting. Pt afebrile, VSS on arrival. Head CT no acute disease. CXR with mild central pulmonary vascular congestion, no evidence of PNA. CT abdomen pelvis shows fecal retention, negative for obstruction. EKG no ischemic changes. Labs grossly unremarkable. Acute encephalopathy of unknown etiology--pt's Lamictal recently increased, also w/constipation which may be contributing -Admit to med/surg -Consult neurology, appreciate recs: Appears moderately improved but not yet back to baseline. Possible Lamictal toxicity, level pending and can f/u as outpatient. Continue reduced Lamictal dose of 350 mg PO BID. Other anticonvulsants not changed. -Lamictal and gabapentin levels pending -TSH WNL -Ammonia slightly elevated at 37. Pt did have large BM 10/05 -B12, folate WNL -UA negative Constipation--improving, large BM on 10/05 -Dulcolax suppository daily prn constipation -Colace BID and Senna hs -Miralax, milk of magnesia prn -Caregiver states pt used to be on Colace and Senna every day for maintenance, but this was stopped in August when pt was at [facility] for unknown reasons Urinary retention, decreased urinary output--ongoing -Continue bladder scan q8h schedule if still not voiding, and can do prn if pt becomes restless as this seems to be due to the urinary retention -Straight cath prn scan over 300 cc -Consult urology -Renal function looks good/WNL, no signs dehydration -Renal and bladder ultrasound unremarkable -PSA WNL -Start empiric Flomax 0.4 mg PO hs -Continue NSS at 75 cc/hr Severe epilepsy--seizure on 09/29 -Consult neurology as above -Lamictal reduced to 350 mg PO BID -Continue home Onfi, felbamate, gabapentin, Vimpat Benign familial tremor--stable, at baseline -Continue propranolol DVT prophylaxis -Enoxaparin 40 mg SC q24h -LAYLA Baxter Code Status -Level I, FULL RESUSCITATION STATUS -Father states no prolonged measures Dispo -Pt from [facility] [place] -At baseline, he is at times ambulatory but at times needs walker or even a wheelchair. Usually independent w/ADLs but sometimes needs assistance -Pt's father and [facility] would like pt to go to rehab prior to returning to [facility] -Pt now alert enough for PT/OT, will evaluate and treat, case management following Continued [facility] stay due to: voiding difficulties, home environment unsafe for pt
[2017-10-07] MEDS: FELBAMATE 600 MG PO SCH ×2 (13:39→20:36)
[2017-10-07] MEDS ORDERED: LORAZEPAM 2 MG/ML 1 ML VIAL IV PRN (14:00)
[2017-10-07] MEDS ORDERED: LORAZEPAM INJ 2 MG in SYRINGE 1 ML IV PRN (14:15)
[2017-10-07 15:05] VITALS: BP 123/88; PULSE 99; TEMP 36.9; O2SAT 98
--- NOTE | 2017-10-07 15:06 | GENITOURINARY CONSULTATION ---
DATE OF CONSULTATION: 10/07/2017 REASON FOR THE CONSULT: Urinary retention. HISTORY OF PRESENTATION: The patient is a 52-year-old male, most of the history was obtained from the nursing staff. Patient has a history of mental changes and mental status decline with seizure disorder, decreased understanding and capacity to communicate. The patient lists skills, he is alert to person. He apparently was brought with decreased mental status changes and has a history of seizures and that was felt to be possibly part of his problem. He is wheelchair bound apparently and since he has been here during this admission he has been unable to void. He has had a CAT scan that does not show any history of stones, although he does have a distant history of having stones with ESWL. He also had a renal sonogram yesterday which did not show any significant abnormalities and there was a decompressed bladder. He, however, has per the nurse, required straight cathing and as far as she is aware has not voided independently on his own. He is on Flomax once daily. He is also on BuSpar and multiple other anti-seizure medicines, some of which may have been interfering with his ability to void. He also has severe constipation which could affect his voiding capacity. He did have a PSA which was within normal limits at 0.76. Patient is unable to give a history of voiding difficulties from the past. Again, the history is obtained from the chart as the patient currently is resting in bed. Apparently he does not stand on his own. He can pivot to a wheelchair. He has a long list of multiple medical problems including closed head injury, change in mental status, aspiration pneumonia, kidney stone, agitation and abdominal pain. 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 SOCIAL HISTORY: He does not smoke or drink. Lives in a snf and is disabled. MEDICATIONS: Include BuSpar 30 mg at bedtime and 15 mg in the morning, Onfi 5 mg b.i.d., Colace 1 capsule b.i.d., Prozac 20 mg daily, felbamate 600 mg b.i.d., gabapentin 100 mg t.i.d., Vimpat 200 mg b.i.d., Lamictal 400 mg b.i.d., omeprazole 20 mg q.a.m., propranolol 80 mg b.i.d. and Senokot. He does also take several p.r.n. medicines. Again, his labs including his PSA of 0.76 has been normal. PHYSICAL EXAMINATION: GENERAL: He is resting comfortably. Appears to be well developed. HEENT: Shows a small laceration of his left eye. HEENT is otherwise unremarkable. LUNGS: He is breathing normally. ABDOMEN: Appears soft. SKIN: Normal. NEUROLOGIC: He is again resting. LABORATORY DATA: CT scan did not show any stones or hydronephrosis as previously stated and the sonogram was within normal limits as well. ASSESSMENT AND PLAN: A 52-year-old male with difficulty voiding, requiring straight catheterization. We will increase the Flomax to b.i.d. and start the patient on Proscar. It is not clear to what extent benign prostatic hypertrophy could be playing a role in this patient's voiding difficulties versus medication versus constipation. At this juncture, there is no previous significant history that I can obtain or previous difficulty voiding, although he did have a catheter during an admission over [place]. We will continue to follow the patient along. Thank you very much for the consult.
[2017-10-07] MEDS ORDERED: TAMSULOSIN HCL 0.4 MG CAP PO ONE (20:00)
[2017-10-07] MEDS: SENNA 8.6 MG TAB PO SCH (20:30)
[2017-10-07] MEDS: ENOXAPARIN 40 MG/0.4 ML SYR SQ SCH (20:35)
[2017-10-07] MEDS: TAMSULOSIN HCL 0.4 MG CAP PO SCH (20:35)
[2017-10-08 00:22] VITALS: BP 123/76; PULSE 51; TEMP 36.3; O2SAT 95
[2017-10-08 07:48] VITALS: BP 132/73; PULSE 53; TEMP 36.7; O2SAT 95
[2017-10-08] MEDS ORDERED: FINASTERIDE 5 MG TAB PO SCH (08:00)
[2017-10-08] MEDS: CARBAMIDE PEROXIDE 6.5% 15 ML BTL OT SCH (08:26)
[2017-10-08] MEDS: DOCUSATE SODIUM 100 MG CAP PO SCH (08:27)
[2017-10-08] MEDS: PROPRANOLOL HCL 80 MG LA CAP PO SCH (08:27)
[2017-10-08] MEDS: BusPIRone 15 MG TAB PO SCH (08:27)
[2017-10-08] MEDS: LACOSAMIDE 50 MG TAB PO SCH (08:28)
[2017-10-08] MEDS: PANTOprazole SOD 40 MG TAB PO SCH (08:28)
[2017-10-08] MEDS: POLYETHYLENE (MIRALAX) 17 GM PACK PO SCH (08:28)
[2017-10-08] MEDS: FLUOXETINE HCL 20 MG CAP PO SCH (08:28)
[2017-10-08] MEDS: CEROVITE ADV FORMULA TAB PO SCH (08:28)
[2017-10-08] MEDS: GABAPENTIN 100 MG CAP PO SCH ×2 (08:28→13:33)
[2017-10-08] MEDS: CLOBAZAM 10MG TABLET PO SCH (08:30)
[2017-10-08] MEDS: SODIUM CHLORIDE 0.9% 1000ML 1,000 ML IV SCH (10:11)
[2017-10-08] MEDS: FELBAMATE 600 MG PO SCH (10:13)
[2017-10-08] MEDS ORDERED: LMC100 PO (10:55)
[2017-10-08] MEDS ORDERED: PRS5 PO (10:55)
[2017-10-08] MEDS ORDERED: FLM4 PO (10:55)
--- NOTE | 2017-10-08 11:14 | Discharge Instructions ---
Discharge Instructions Date of Service Oct 08, 2017. Admission Reason for Admission: Altered Mental Status Discharge Discharge Diagnosis / Problem: toxic/metabolic encephalopathy Discharge Goals Goal(s): Improve disease control Activity Recommendations Activity Level: Assistance Required Therapies: Physical Therapy, Occupational Therapy . Additional Information Patient informed of condition: Yes Advance Directives: No DNR: No Level of Care: Acute Rehab Communicable Disease: No (history of MRSA ) Prognosis: Stable Ayala Catheter: No (straight cath prn - q8h bladder scans) Instructions / Follow-Up Instructions / Follow-Up 52 y/o male with a history of severe epilepsy, TBI, cognitive impairment, ambulatory dysfunction, benign familial tremor, BPH, and HLD who presented to the ED on 10/04 with altered mental status and vomiting. CXR without evidence of pneumonia. Acute encephalopathy of unknown etiology, seizure disorder with last seizure -- patient's lamictal was reduced and a level is pending. He also ran out of felbamate yesterday which is non formulary at the hospital. Patient normally gets this medication from [facility]. Per neurology, it is ok for patient to be off of this medication for a day or two while waiting for it to be filled. Patient should follow with neurology within the next week Urinary retention, decreased urinary output - would continue to bladder scan every 8 hours and straight cath if no void. Patient saw urology inpatient and should follow within the week. Urine culture is pending. Started on tamsulosin and finasteride over the weekend and should continue. Renal function looks good/ WNL, no signs dehydration. Renal and bladder ultrasound unremarkable Benign familial tremor-- at baseline, patient takes propranolol Current Hospital Diet Patient's current hospital diet: AHA Diet (Heart Healthy) Discharge Diet Recommended Diet: AHA Diet (Heart Healthy) Procedures Procedures Performed: Retroperitoneal US Abdomen/pelvis CT Chest X ray Head CT Pending Studies Studies pending at discharge: yes List of pending studies: lamotrigine level, gabapentin level, urine culture Physician Orders On Transfer POLST Discussion: without POLST completion Laboratory Results 10/07/17 06:42 10/07/17 06:42 Test 10/04/17 15:05 10/04/17 15:08 10/04/17 17:25 10/04/17 19:39 Immature Granulocyte % (Auto) 0.1 % White Blood Count 7.07 K/uL (4.8-10.8) Red Blood Count 4.59 M/uL (4.7-6.1) Hemoglobin 14.4 g/dL (14.0-18.0) Hematocrit 43.1 % (42-52) Mean Corpuscular Volume 93.9 fL (80-100) Mean Corpuscular Hemoglobin 31.4 pg (25-34) Mean Corpuscular Hemoglobin Concent 33.4 g/dl (32-36) Platelet Count 142 K/uL (130-400) Mean Platelet Volume 9.1 fL (7.4-10.4) Neutrophils (%) (Auto) 72.3 % Lymphocytes (%) (Auto) 17.0 % Monocytes (%) (Auto) 9.9 % Eosinophils (%) (Auto) 0.6 % Basophils (%) (Auto) 0.1 % Neutrophils # (Auto) 5.11 K/uL (1.4-6.5) Lymphocytes # (Auto) 1.20 K/uL (1.2-3.4) Monocytes # (Auto) 0.70 K/uL (0.11-0.59) Eosinophils # (Auto) 0.04 K/uL (0-0.5) Basophils # (Auto) 0.01 K/uL (0-0.2) Immature Granulocyte # (Auto) 0.01 K/uL (0.00-0.02) Prothrombin Time 10.4 SECONDS (9.0-12.0) Prothromb Time International Ratio 1.0 (0.9-1.1) Activated Partial Thromboplast Time 41.5 SECONDS (21.0-31.0) Partial Thromboplastin Ratio 1.6 Magnesium Level 1.9 mg/dl (1.8-2.4) Total Bilirubin 0.8 mg/dl (0.2-1) Direct Bilirubin 0.3 mg/dl (0-0.2) Aspartate Amino Transf (AST/SGOT) 14 U/L (15-37) Alanine Aminotransferase (ALT/SGPT) 17 U/L (12-78) Alkaline Phosphatase 137 U/L (45-117) Troponin I < 0.015 ng/ml (0-0.045) Total Protein 7.3 gm/dl (6.4-8.2) Albumin 3.9 gm/dl (3.4-5.0) Lipase 155 U/L (73-393) Thyroid Stimulating Hormone (TSH) 0.679 uIu/ml (0.300-4.500) Test 10/04/17 20:36 10/05/17 12:36 10/05/17 19:30 10/06/17 13:27 Ammonia 37.0 umol/L (11-32) Vitamin B12 Level 419 pg/mL (211-911) Folate 16.20 ng/mL (>5.38) Urine Color DK YELLOW Urine Appearance CLEAR (CLEAR) Urine pH 5.5 (4.5-7.5) Urine Specific Franklin 1.036 (1.000-1.030) Urine Protein TRACE (NEG) Urine Glucose (UA) NEG (NEG) Urine Ketones 1+ (NEG) Urine Occult Blood NEG (NEG) Urine Nitrite NEG (NEG) Urine Bilirubin NEG (NEG) Urine Urobilinogen NEG (NEG) Urine Leukocyte Esterase TRACE (NEG) Urine WBC (Auto) 1-5 /hpf (0-5) Urine RBC (Auto) 0-4 /hpf (0-4) Urine Hyaline Casts (Auto) 1-5 /lpf (0-5) Urine Epithelial Cells (Auto) 10-20 /lpf (0-5) Urine Bacteria (Auto) NEG (NEG) Prostate Specific Antigen 0.726 ng/ml (0.000-4.000) Test 10/07/17 06:42 Red Blood Count 3.80 M/uL (4.7-6.1) Mean Corpuscular Volume 93.7 fL (80-100) Mean Corpuscular Hemoglobin 31.1 pg (25-34) Mean Corpuscular Hemoglobin Concent 33.1 g/dl (32-36) RDW Standard Deviation 46.1 fL (36.4-46.3) RDW Coefficient of Variation 13.5 % (11.5-14.5) Mean Platelet Volume 8.8 fL (7.4-10.4) Anion Gap 6.0 mmol/L (3-11) Est Creatinine Clear Calc Drug Dose 117.1 ml/min Estimated GFR () 122.7 Estimated GFR (Non- 105.9 BUN/Creatinine Ratio 16.0 (10-20) Calcium Level 8.3 mg/dl (8.5-10.1) Date/Time Source Procedure Growth Status 10/08/17 10:36 Urine,Catheterized Urine Culture Pending Received Medical Emergencies . Who to Call and When: Medical Emergencies: If at any time you feel your situation is an emergency, please call 911 immediately. . Non-Emergent Contact Non-Emergency issues call your: Primary Care Provider Call Non-Emergent contact if: you have a fever, you have any medication questions . . "Provider Documentation" section prepared by Whit Sparrow. . Core Measure Problem Core Measures: None
[2017-10-08] MEDS ORDERED: BISACODYL 10 MG SUPP PR STA (11:16)
--- NOTE | 2017-10-08 11:27 | Urology Progress Note ---
Progress Note Date of Service Oct 08, 2017. Subjective Pt evaluation today including: conversation w/ patient, physical exam, chart review, lab review Pain: denies PO Intake: tolerating Voiding: requires PRN straight cath 52 YO male, epilepsy, TBI, cognitive impairment, BPH, urinary retention requiring straight catheterization. Not possible for me to obtain reliable ROS. Patient appears calm and comfortable this morning. Eating breakfast with assistance. Per nursing, there has been no spontaneous voiding at all. Bladder scans with straight catheterization Q4-6 hours. No hematuria. Patient remains on Tamsulosin BID and Proscar. Additional Comments: Not possible to obtain. Objective Vital Signs Date Time Temp Pulse Resp B/P (MAP) Pulse Ox O2 Delivery O2 Flow Rate FiO2 10/08/17 07:48 36.7 53 20 132/73 (92) 95 10/08/17 00:22 36.3 51 20 123/76 (92) 95 Room Air 10/08/17 00:08 Room Air 10/07/17 15:05 36.9 99 20 123/88 (100) 98 Room Air Physical Exam General Appearance: no apparent distress Eyes: normal inspection ENT: hearing grossly normal Neck: no JVD Respiratory/Chest: no respiratory distress, no accessory muscle use Cardiovascular: no JVD Abdomen: non tender, soft Extremities: normal inspection Neurologic/Psychiatric: alert Skin: normal color Assessment and Plan 52 YO male, epilepsy, TBI, cognitive impairment, BPH, urinary retention requiring straight catheterization. Creatinine stable, afebrile. Patient appears comfortable. Bladder does not feel distended on exam. Per nursing patient is tolerating CIC well, no hematuria noted. Continue Proscar and Tamsulosin BID. Continue bladder scan Q4-6 hours with catheterization. Will check UC&S this morning. Will continue to follow along with primary service.
--- NOTE | 2017-10-08 11:29 | Discharge Summary ---
Discharge Summary Date of Service Oct 08, 2017. Discharge Summary Admission Date: Oct 05, 2017 at 14:38 Discharge Date: Oct 08, 2017 Discharge Disposition: Rehab Principal Diagnosis: Toxic/metabolic encephalopathy Problems/Secondary Diagnoses: Constipation, Urinary retention, decreased urinary output, Severe epilepsy-- seizure on 09/29, Benign familial tremor Immunizations: Have You Had Influenza Vaccine: N/A Influenza Vaccine Date: Nov 03, 2009 History of Tetanus Vaccine?: Yes Tetanus Immunization Date: Jun 04, 2007 History of Pneumococcal: No History of Hepatitis B Vaccine: Unknown Hepatitis Immunization Date: Jun 04, 2007 Procedures: ULTRASOUND KIDNEYS AND BLADDER CLINICAL HISTORY: Urinary retention. COMPARISON STUDY: Abdominal CT dated 10/04/2017. TECHNIQUE: Real-time, grayscale, and color flow sonography of the kidneys and bladder is performed. Images are reviewed in the transverse and longitudinal planes. FINDINGS: Kidneys: The kidneys are normal in size and echotexture. The right kidney measures 10.3 cm in length and the left kidney measures 11.2 cm in length. There is no hydronephrosis. No shadowing renal calculi are identified. There is no sonographic evidence of contour deforming renal mass lesion. No perinephric fluid is identified. Bladder: The bladder is bladder is decompressed and not well evaluated. Ureteral jets could not be assessed. IMPRESSION: 1. The kidneys are normal in size and without hydronephrosis. 2. The bladder was decompressed and could not be assessed. Electronically signed by: José Luis Major M.D. 10/06/2017 2:[address] SCAN OF THE ABDOMEN AND PELVIS WITHOUT CONTRAST CLINICAL HISTORY: vomiting COMPARISON STUDY: May 10, 2017 TECHNIQUE: CT scan of the abdomen and pelvis was performed from the lung bases to the proximal femurs. Images are reviewed in the axial, sagittal, and coronal planes. IV contrast was not administered for this examination. A dose lowering technique was utilized adhering to the principles of ALARA. CT DOSE: 990.48 mGy.cm FINDINGS: There is streak artifact, as the patient was scanned with his arms by his side. Lower chest: There are increased dependent basilar markings similar to the prior study. There is a calcified right lower lobe granuloma. Liver: The unenhanced liver is normal in size, contour, and attenuation. There is no intrahepatic biliary ductal dilatation. Gallbladder: Surgically absent Spleen: Normal in size and attenuation. Pancreas: Unremarkable. Adrenal glands: Unremarkable. Kidneys: The unenhanced kidneys are normal in size without hydronephrosis. There is no contour deforming renal mass lesion. No renal calculi are identified. Bowel: There are no transition zones indicate bowel obstruction. There is moderate fecal retention. There is no acute diverticulitis. There is a mildly distended fluid-filled appendix measuring 8 mm in diameter. Definite periappendiceal inflammatory changes are not visualized. Clinical correlation and follow-up is recommended as an early acute appendicitis cannot be excluded. Peritoneum: There is no intraperitoneal free air or abdominal ascites. Vasculature: The abdominal aorta is normal in course and caliber. Adenopathy: None. Pelvic viscera: The bladder, and pelvic viscera are unremarkable. Skeletal structures: There is bilateral L5 spondylolysis. There is an old superior endplate L2 compression deformity IMPRESSION: 1. No evidence of bowel obstruction. No evidence of free air 2. Fecal retention 3. No renal, ureteral, or bladder calculi identified 4. No evidence of acute diverticulitis 5. Fluid-filled mildly dilated appendix without definitive periappendiceal inflammatory change. Clinical correlation and follow-up is recommended as an early acute appendicitis cannot be excluded. Electronically signed by: Terrence Liang M.D. 10/04/2017 3:43 PM CHEST ONE VIEW PORTABLE CLINICAL HISTORY: Altered mental status COMPARISON STUDY: 10/03/2017 FINDINGS: The heart is mildly enlarged. There is persistent mild perihilar interstitial thickening likely representing mild pulmonary vascular congestion. Bibasilar opacities, are likely atelectatic.[ IMPRESSION: 1. Mild cardiomegaly and mild central pulmonary vascular congestion 2. Stable basilar airspace opacities likely atelectatic Electronically signed by: Terrence Liang M.D. 10/04/2017 3:[address] HEAD WITHOUT CONTRAST (CT) CLINICAL HISTORY: Altered mental status. Weakness. COMPARISON STUDY: 09/30/2017 TECHNIQUE: Axial CT of the brain is performed from the vertex to the skull base. IV contrast was not administered for this examination. A dose lowering technique was utilized adhering to the principles of ALARA. CT DOSE: FINDINGS: No intra or extra-axial mass lesions are visualized. There is no CT evidence of acute cortical infarction. There is no evidence of midline shift. There is no acute hemorrhage. No calvarial fractures are visualized. There is no evidence of pathologic ventricular dilatation. There is no evidence of acute sinusitis IMPRESSION: No acute intracranial findings Electronically signed by: Terrence Liang M.D. 10/04/2017 3:35 PM Consultations: Dr. Rashid from neurology, Dr. Diop from urology Medication Reconciliation New Medications: Finasteride (Finasteride) 5 Mg Tab 5 MG PO QAM for 30 Days, #30 TAB Lamotrigine (Lamotrigine) 100 Mg Tab 350 MG PO BID for 30 Days, #30 TAB Tamsulosin HCl (Tamsulosin HCl) 0.4 Mg Cap 0.4 MG PO BID for 30 Days, #60 CAP Continued Medications: Acetaminophen (Tylenol) 325 Mg Tab 650 MG PO Q6 PRN for Pain or Fever, TAB MAX 3GM APAP/24HR Alum & Mag Hydrox-Simethicone (Antacid & [place]ig[place] 200-200-20 mg/5Ml) 1 Henrietta Henrietta 30 ML PO Q6 PRN for Buspirone Hcl (Buspar) 15 Mg Tab 15 MG PO QAM, TAB Buspirone HCl (Buspirone HCl) 15 Mg Tab 30 MG PO HS Carbamide Peroxide (Otic) (Carbamide Peroxide) 6.5 % Jenniffer 5-10 DROPS OT BID USE THE FIRST 3 DAYS OF THE MONTH Clobazam (Onfi) 2.5 Mg/Ml Henrietta 5 MG PO BID Dextromethorphan Polistirex (Delsym) 30 Mg/5 Ml Liq 10 ML PO Q12 PRN for Cough Docusate Sodium (Colace) 100 Mg Cap 1 CAP PO BID for 15 Days, #30 CAP Felbamate (Felbamate) 600 Mg Tab 600 MG PO BID Fluoxetine Hcl (Prozac) 20 Mg Cap 20 MG PO DAILY Gabapentin (Neurontin) 100 Mg Cap 100 MG PO TID, CAP Lacosamide (Vimpat) 200 Mg Tab 200 MG PO BID Magnesium Hydroxide (Milk Of Magnesia) 30 Ml Susp 30 ML PO UD PRN for Constipation Multiple Vitamins W/ Minerals (Preservision Areds 2) 1 Cap Cap 2 CAP PO QAM Neomycin/Polymyx/Bacitr (Neosporin) Oint 1 APPL TOP BID PRN for CUTS,SCRAPES,ABRASIONS Omeprazole (Prilosec) 20 Mg Capcr 20 MG PO QAM Propranolol Hcl (Propranolol Hcl Er) 80 Mg Cap 80 MG PO BID Senna (Senokot) 8.6 Mg Tab 1 TAB PO HS, TAB Discontinued Medications: Lamotrigine (Lamictal) 200 Mg Tab 400 MG PO BID for 30 Days, #120 TAB 1 Refill Loperamide Hcl (Imodium A-D) 2 Mg Tab 4 MG PO UD PRN for Diarrhea Discharge Exam ROS Constitutional: no chills, aches, sweats or fever Respiratory: no sob,cough, sputum, or wheezing Cardiac: no chest pain, palpitations, edema, orthopnea or lightheadedness GI: no abdominal pain, nausea, vomiting, diarrhea or constipation : per nursing - urinary retention Extremities: no joint pain or weakness Skin: no rash All other systems reviewed and negative General: no distress Eyes: normal inspection, PERLL Respiratory: chest non tender, clear to auscultation, normal breath sounds, no respiratory distress, no accessory muscle use Cardiac: regular rate and rhythm, no rub or gallop, no murmur, no edema, no jvd GI/: active bowel sounds, no abd pain or tenderness, soft, non distended Extremities: normal range of motion, normal strength, non tender Neuro/Psych: alert and oriented to person and place, normal mood and affect, bilateral tremor Skin: normal color, dry Hospital Course This is a 52 y/o male with a history of severe epilepsy, TBI, cognitive impairment, ambulatory dysfunction, benign familial tremor, BPH, and HLD who presented to the ED on 10/04 with altered mental status and vomiting. Caregiver stated on patient's arrival to the ED that he has been declining over the last month and this is his 7th ED visit in that time due to various reasons including fall, UTI, seizure. He has been having periods of AMS throughout this time. Caregiver stated patient is usually able to answer questions himself. Last week he had a seizure and his Lamictal was increased at that time ; she denied any other recent med changes. The caregiver does note that she does not think he has had a BM for quite some time. The patient vomited once today and then developed a non-productive cough. Caregiver denies fevers, shortness of breath, or wheezing. Acute metabolic vs toxic encephalopathy --pt's Lamictal recently increased, also w/constipation which may be contributing -Admitted to med/surg -Consulted neurology: Possible Lamictal toxicity, level pending and can f/u as outpatient. Continue reduced Lamictal dose of 350 mg PO BID. Other anticonvulsants not changed. Felbamate not available yesterday. Per neuro, it is ok for patient to miss this medication for a day or two until it can be filled -Lamictal and gabapentin levels pending -TSH WNL -Ammonia slightly elevated at 37. Pt did have large BM 10/05 -B12, folate WNL -UA negative Constipation--improving, large BM on 10/05 -Dulcolax suppository daily prn constipation - will order one now as no BM since 10/05 -Colace BID and Senna hs -Miralax, milk of magnesia prn -Caregiver states pt used to be on Colace and Senna every day for maintenance, but this was stopped in August when pt was at [facility] for unknown reasons Urinary retention, decreased urinary output--ongoing -Continue bladder scan q8h schedule if still not voiding, and can do prn if pt becomes restless as this seems to be due to the urinary retention -Straight cath prn scan over 300 cc -Consulted urology - will follow outpatient - started tamsulosin bid and finasteride, UC pending -Renal function looks good/WNL, no signs dehydration -Renal and bladder ultrasound unremarkable -PSA WNL Severe epilepsy--seizure on 09/29 -Consulted neurology as above -Lamictal reduced to 350 mg PO BID -Continue home Onfi, felbamate, gabapentin, Vimpat Benign familial tremor--stable, at baseline -Continue propranolol -Level I, FULL RESUSCITATION STATUS -Father states no prolonged measures Dispo -Pt from half-way, [facility] [place] -At baseline, he is at times ambulatory but at times needs walker or even a wheelchair. Usually independent w/ADLs but sometimes needs assistance - to [facility] for rehab [employer] Physician Supervision Note: I interviewed and examined the patient. Discussed with Whit Sparrow NP and agree with findings and plan as documented in the note. Any exceptions or clarifications are listed here: None Patient was seen in about his mental baseline however still with significant intentional tremor which does resolve when you asked the patient to stop. The patient is remanded to [facility] to continue to improve his physical ability while we are monitoring his seizures on reduced doses of anti- convulsive medicines Documented By: Dexter Moser Total Time Spent: Greater than 30 minutes This includes examination of the patient, discharge planning, medication reconciliation, and communication with other providers. Discharge Instructions Please refer to the electronic Patient Visit Report (Discharge Instructions) for additional information. Follow-Up Dr. Diop from urology, Dr. Rashid from neurology within a week Additional Copies To [facility]
[2017-10-08 12:35] VITALS: BP 132/73; PULSE 53; TEMP 36.7; O2SAT 95
[2017-10-08 14:59] VITALS: BP 132/80; PULSE 108; TEMP 36.9; O2SAT 96
== END 2017-10-08 19:45 | DRG 91 ==
LOC: EDBD 13:49 → C.EDA 13:51 → C.MS4W 18:02 → UNDOADMOB 18:02 → EDBEDREQ 18:26 → ENRESERV 18:43 → OBSVTOIN 10-05 14:38 → C.4E 10-05 15:17
PROVIDERS: ADMIT Hospitalist; ATTEND Nurse Practitioner Family
DX: G92 Toxic encephalopathy (principal); G40.909 Epilepsy, unspecified, not intractable, without status epilepticus; G93.41 Metabolic encephalopathy; Z87.442 Personal history of urinary calculi; F70 Mild intellectual disabilities; T36.7X5A Adverse effect of antifungal antibiotics, systemically used, initial encounter; Z88.2 Allergy status to sulfonamides; S06.9X9S Unspecified intracranial injury with loss of consciousness of unspecified duration, sequela; R33.9 Retention of urine, unspecified; Z82.49 Family history of ischemic heart disease and other diseases of the circulatory system; G25.0 Essential tremor; N40.1 Benign prostatic hyperplasia with lower urinary tract symptoms; E78.5 Hyperlipidemia, unspecified; K59.00 Constipation, unspecified; Y92.89 Other specified places as the place of occurrence of the external cause; X58.XXXS Exposure to other specified factors, sequela

== ENCOUNTER 2017-10-22 10:09 | Emergency (ER) | payer OTHER ==
[~2017-10-22] VITALS: Ht 182.9 cm; Wt 72.2 kg
[~2017-10-22 10:09] MED LIST changes: +DOCU-94 PO; +FLM4 PO; -LAMO1TAB79 PO; -LAMO50TA PO; +LMC100 PO; -LOPE-5 PO; +PRS5 PO; +SENN-61 PO
[2017-10-22 10:22] VITALS: TEMP 37; Ht 182.9 cm; Wt 72.2 kg
[2017-10-22] MEDS ORDERED: LEVOFLOXACIN 500 MG TAB PO STA (10:29)
--- NOTE | 2017-10-22 10:37 | EMERGENCY ROOM VISIT NOTE ---
History Report prepared by [place]el[place]: Alex Vela Under the Supervision of: Dr. Homar Choudhary M.D. First contact with patient: 10:20 Chief Complaint: OTHER COMPLAINT Stated Complaint: FACIAL SWELLING History of Present Illness History is limited secondary to intellectual disability. The patient is a 52 year old male who presents to the Emergency Room with complaints of worsening facial swelling beginning in the past couple days. Nursing staff reports that the patient is taking Cipro for a UTI. He denies shortness of breath or pain anywhere else. Source of History: patient, nursing staff History Limited By: other (intellectual disability) Onset: past couple days Position: head (face) Quality: other (swelling) Timing: worsening Associated Symptoms: No SOB Note: denies pain anywhere else Review of Systems ROS is limited secondary to intellectual disability. Past Medical & Surgical Medical Problems: (1) Altered mental status (2) Ambulatory dysfunction (3) Dehydration (4) Encephalopathy (5) Epilepsy (6) Hydronephrosis with ureteral calculus (7) Inguinal hernia (8) Kidney stone (9) Mild mental retardation (10) Nausea and vomiting (11) Rectal bleed (12) Seizure disorder (13) Seizures (14) Status epilepticus (15) TBI (traumatic brain injury) (16) Tegretol toxicity (17) Tremor (18) Urinary retention (19) UTI (urinary tract infection) Family History Heart disease Hypertension Kidney disease Social History Smoking Status: Never Smoker Alcohol Use: none Drug Use: none Marital Status: single Housing Status: assisted living Occupation Status: disabled Current/Historical Medications Scheduled Buspirone HCl (Buspirone HCl), 30 MG PO BID Carbamide Peroxide (Otic) (Carbamide Peroxide), 5-10 DROPS OT BID Clobazam (Onfi), 5 MG PO BID Docusate Sodium (Colace), 1 CAP PO BID Felbamate (Felbamate), 600 MG PO BID Finasteride (Finasteride), 5 MG PO QAM Fluoxetine Hcl (Prozac), 20 MG PO DAILY Fluticasone Propionate (Nasal) (Flonase Allergy Relief), 2 SPRAYS NA QD Gabapentin (Neurontin), 100 MG PO TID Lacosamide (Vimpat), 200 MG PO BID Lamotrigine (Lamotrigine), 350 MG PO BID Levofloxacin (Levofloxacin), 1 TAB PEG QD Multiple Vitamins W/ Minerals (Preservision Areds 2), 2 CAP PO QAM Omeprazole (Prilosec), 20 MG PO QAM Pantoprazole (Protonix), 40 MG PO DAILY Propranolol Hcl (Propranolol Hcl Er), 80 MG PO BID Senna (Senokot), 1 TAB PO HS Tamsulosin HCl (Tamsulosin HCl), 0.4 MG PO BID Scheduled PRN Acetaminophen (Tylenol), 650 MG PO Q6 PRN for Pain or Fever Alum & Mag Hydrox-Simethicone (Antacid & [place] 200-200-20 mg/5Ml), 30 ML PO Q6 PRN for Dextromethorphan Polistirex (Delsym), 10 ML PO Q12 PRN for Cough Magnesium Hydroxide (Milk Of Magnesia), 30 ML PO UD PRN for Constipation Neomycin/Polymyx/Bacitr (Neosporin), 1 APPL TOP BID PRN for CUTS,SCRAPES, ABRASIONS Allergies Coded Allergies: Sulfamethoxazole w/Trimethoprim (Verified Allergy, Unknown, dizziness and increase in tremor, 10/22/17) Grapefruit (Verified Adverse Reaction, Unknown, INTERACTS WITH OTHER MEDS , 10/22/17) Ibuprofen (Verified Adverse Reaction, Unknown, avoids secondary to reactions with other medications, 10/22/17) Levetiracetam (Verified Adverse Reaction, Unknown, AGITATION, 10/22/17) Physical Exam Vital Signs Date Time Temp Pulse Resp B/P (MAP) Pulse Ox O2 Delivery O2 Flow Rate FiO2 10/22/17 14:05 57 16 116/78 96 10/22/17 12:34 56 16 107/73 93 Room Air 10/22/17 10:22 37.0 65 16 121/78 96 Room Air Physical Exam GENERAL: Awake, alert, well-appearing, NAD. Baseline tremors. HENT: Normocephalic, atraumatic. Left-sided paranasal erythema with a 2x2 cm area of swelling. Left naris has some purulent drainage, somewhat sanguinous. No active bleeding or septal hematoma. EYES: Normal conjunctiva. Sclera non-icteric. PERRL. No anisocoria. NECK: Supple. No nuchal rigidity. FROM. RESPIRATORY: CTAB, no rhonchi, wheezing, crackles CARDIAC: RRR, no MRG ABDOMEN: Soft, NTND, BS+ MSK: No chest wall TTP, no LE edema NEURO: GCS 15, CN 2-12 intact, moves all 4s on command. Baseline tremors to all 4 extremities. SKIN: No rash or jaundice noted. Medical Decision & Procedures Medications Administered Medications (Trade) Dose Ordered Sig/Hugh Route Start Time Stop Time Status Last Admin Dose Admin Levofloxacin (Levaquin Tab) 500 mg ONE STAT PO 10/22/17 10:29 10/22/17 10:33 DC 10/22/17 10:29 500 MG ED Course 1023: The patient was evaluated in room A3. A complete history and physical exam was performed. 1125: I reevaluated the patient, who is doing well. Discussed results and discharge instructions: He verbalized understanding and agreement. The patient is ready for discharge. I instructed the nurse to speak with the patient's care facility about his medications and return precautions. Medical Decision Nursing notes reviewed. Ancillary studies and prior records reviewed. The patient is a 52 year old male who presents to the Emergency Room with complaints of worsening facial swelling beginning in the past couple days. Differential diagnosis: Etiologies such as cellulitis, abscess, MRSA infection, DVT, necrotizing fasciitis, dermatitis, drug eruption, as well as others were entertained. Patient was seen and evaluated the bedside. The patient is currently on Cipro Floxin for UTI. Patient is noticed some increasing left-sided facial swelling that is just lateral and left of his nose. The patient is also had some drainage. On exam the patient does have some purulence as well as sanguinous drainage but currently is hemostatic and no evidence of any septal hematoma. The patient does have a patent left naris although it appears as though it is occasionally occluded secondary to the drainage. The patient is afebrile the patient is stable vital signs. I believe he is suitable for outpatient follow-up and treatment and we will switch his medication from Cipro to Levaquin in order to ensure both UTI as well as some rhinosinusitis coverage. I did instruct the nurse as well as the patient's discharge instructions that if he does not improve in the next 24-48 hours or develops any fever or any other concerning symptoms he should return to the emergency department. The amount of swelling is fairly minimal at this time I do not believe warrants an attempted I&D for imaging at this time. Patient was given strict follow-up, discharge, and return precautions. All questions were answered. Patient was deemed suitable for outpatient follow-up at this time. Patient agreed with the plan of care and was safely discharged home. Medication Reconcilliation Current Medication List: was personally reviewed by me Blood Pressure Screening Patient's blood pressure: Normal blood pressure Blood pressure disposition: Did not require urgent referral Impression Primary Impression: Acute rhinosinusitis Scribe Attestation The scribe's documentation has been prepared under my direction and personally reviewed by me in its entirety. I confirm that the note above accurately reflects all work, treatment, procedures, and medical decision making performed by me. Departure Information Dispostion Home / Self-Care Prescriptions Fluticasone Propionate (Nasal) (Flonase Allergy Relief) 50 Mcg/Act Spr 2 SPRAYS NA QD for 7 Days, #1 BTL Prov: Homar Choudhary M.D. 10/22/17 Levofloxacin (Levofloxacin) 500 Mg Tab 1 TAB PEG QD for 4 Days, #4 TAB Prov: Homar Choudhary M.D. 10/22/17 Referrals Jose Juan Brady M.D. (PCP) Forms HOME CARE DOCUMENTATION FORM, IMPORTANT VISIT INFORMATION, WORK / SCHOOL INSTRUCTIONS Patient Instructions ED Sinusitis Abx Tx, My [facility] Additional Instructions Please return to the emergency department if you have worsening or recurrent symptoms not amenable to at-home treatment. Please call for a follow-up appointment with her primary care physician. Please take your medications as prescribed. If you have other concerns and/or complaints please feel free to also call your primary care physician's office or return the ED for further evaluation, management, and treatment. You may take tylenol 650 mg every 6 hours as needed for pain/fever unless told by your physician to not take it or have liver problems. Take your medications as prescribed. If taking an antibiotic consider taking a probiotic and/or eating yogurt, but at the least, please take with food as it can cause upset stomach. You may use the nasal saline spray in addition to the steroid nasal spray. Please use the antibiotics. Please return if your symptoms do not improve within the next 24-48 hours she developed fever, severe headache, or other symptoms that make you feel unwell. You have been examined and treated today on an emergency basis only. This is not a substitute for, or an effort to provide, complete comprehensive medical care. It is impossible to recognize and treat all injuries or illnesses in a single emergency department visit. It is therefore important that you follow up closely with [facility], your PCP, and/or your specialist(s). Call as soon as possible for an appointment. Thank you for your time and consideration. I look forward to speaking with you again soon. Please don't hesitate to call us if you have any questions.
[2017-10-22] MEDS ORDERED: FLUT0.15 (10:44)
[2017-10-22] MEDS ORDERED: LVQ500 PEG (10:44)
[2017-10-22] MEDS ORDERED: PANT40TA PO (13:36)
[2017-10-22 14:05] VITALS: BP 116/78; PULSE 57; O2SAT 96
== END 2017-10-22 14:06 | disposition home or self-care (01) ==
LOC: EDBD 10:09 → C.EDA 10:10
DX: J01.80 Other acute sinusitis (principal); G40.901 Epilepsy, unspecified, not intractable, with status epilepticus; R25.1 Tremor, unspecified; Z88.2 Allergy status to sulfonamides; Z91.018 Allergy to other foods; Z88.6 Allergy status to analgesic agent; Z88.8 Allergy status to other drugs, medicaments and biological substances

== ENCOUNTER 2018-05-20 16:25 | Inpatient (IN) ==
[2018-05-20] MEDS ORDERED: SODIUM CHLORIDE 0.9% 1000ML 1,000 ML IV SCH (17:00)
--- NOTE | 2018-05-20 17:02 | Emergency Department Note ---
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 The patient's staff worker is with him at bedside. She states he had 30 minutes of seizure like activity where he would speak in sentences that did not make any sense and he was slurring his words. The staff member states it is difficult to detect when he has seizures due to his chronic tremors. The staff member reports she was transporting him from his wheelchair to a chair and he fell over the wheelchair. The patient seems to be more drowsy than normal. Home Medications Home Medications Medication Instructions Recorded Confirmed Type acetaminophen [Tylenol] 325 mg PO Q4H PRN 11/14/17 05/20/18 History buspirone 15 mg PO QAM 11/14/17 05/20/18 History clobazam [Onfi] 5 mg PO BID 11/14/17 05/20/18 History felbamate 600 mg PO Q12H 11/14/17 05/20/18 History finasteride 5 mg PO QAM 11/14/17 05/20/18 History fluoxetine [Prozac] 20 mg PO QAM 11/14/17 05/20/18 History fluticasone propionate [Flonase 2 spray INTRANASAL QAM 11/14/17 05/20/18 History Allergy Relief] gabapentin 100 mg PO TID 11/14/17 05/20/18 History lacosamide [Vimpat] 200 mg PO Q12H 11/14/17 05/20/18 History lamotrigine [Lamictal XR] 100 mg PO Q12H 11/14/17 05/20/18 History vvdobigv-ynvapocheEh-idjuucraB 1 applic TOPICAL BID PRN 11/14/17 05/20/18 History [Neosporin (acd-voz-ohpoh)] propranolol 80 mg PO Q12H 11/14/17 05/20/18 History tamsulosin [Flomax] 0.4 mg PO Q12H 11/14/17 05/20/18 History sodium chloride [Saline Mist] 1 spray INTRANASAL Q3H PRN 02/01/18 05/20/18 History ondansetron HCl 8 mg PO Q8H PRN 03/13/18 05/20/18 History lamotrigine [Lamictal XR] 200 mg PO Q12H 04/06/18 05/20/18 History sennosides-docusate sodium 1 tab PO BID 04/30/18 05/20/18 History [Senna-S] buspirone 30 mg PO HS 05/01/18 05/20/18 History carbamide peroxide [Debrox] 5 drp OTIC (EAR) BID PRN 05/01/18 05/20/18 History lamotrigine 50 mg PO Q12H 05/01/18 05/20/18 History multivitamin,me-lkza-abqpvzxg 1 tab PO QAM 05/01/18 05/20/18 History [Therems-M] vitamins A,C,Q-nrpm-vzuqsl 2 cap PO DAILY 05/01/18 05/20/18 History [PreserVision AREDS] lamotrigine 25 mg PO Q12H 05/20/18 05/20/18 History omeprazole 20 mg PO QAM 05/20/18 05/20/18 History Allergies Allergy/AdvReac Type Severity Reaction Status Date / Time Bactrim Allergy Unknown dizziness Verified 10/22/17 13:25 and increase in tremor sulfamethoxazole Allergy Unknown dizziness Verified 05/20/18 17:25 and increase in tremor trimethoprim Allergy Unknown dizziness Verified 05/20/18 17:25 and increase in tremor grapefruit AdvReac Unknown INTERACTS Verified 05/20/18 17:25 WITH OTHER MEDS ibuprofen AdvReac Unknown avoids Verified 05/20/18 17:25 secondary to reactions with other medications levetiracetam AdvReac Unknown AGITATION Verified 05/20/18 17:25 Past Med/Surg History Medical History UTI (urinary tract infection) (Resolved) TBI (traumatic brain injury) (Chronic) Epilepsy (Chronic) Mild mental retardation (Chronic) Tegretol toxicity (Resolved) Urinary tract infection (Resolved) Renal colic (Resolved) Surgical History No pertinent past surgical history Social History Preferred Language: German Current Living Situation Comment: detention Feels Safe at Home: Yes Smoking Status: Never smoker Review of Systems See HPI for pertinent positives & negatives. and A total of 10 systems reviewed and were otherwise negative Physical Exam Vital Signs Vital Signs - 24 hr 05/20/18 16:37 05/20/18 16:45 05/20/18 16:49 Temperature 37.2 C Temperature Source Oral Sepsis Recent Fever Within 48 Hours No Sepsis New/Unexplained Change in Mental Status No Sepsis Action Taken by Nursing No Action Required Pulse Rate 60 59 L 57 L Pulse Rate from SpO2 Sensor 60 57 L Pulse Rhythm Regular Pulse Strength Normal Respiratory Rate 23 20 19 Respiratory Effort / Characteristics Non-Labored Spontaneous Respiratory Depth Normal Respiratory Pattern Regular Blood Pressure 167/154 H 167/154 H Blood Pressure Mean 158 158 Blood Pressure Position Sitting Pulse Oximetry 96 96 95 Oxygen Delivery Method Room Air 05/20/18 16:50 05/20/18 16:58 05/20/18 17:00 Temperature Temperature Source Sepsis Recent Fever Within 48 Hours Sepsis New/Unexplained Change in Mental Status Sepsis Action Taken by Nursing Pulse Rate 58 L 59 L 57 L Pulse Rate from SpO2 Sensor 57 L 57 L Pulse Rhythm Regular Pulse Strength Respiratory Rate 18 20 16 Respiratory Effort / Characteristics Respiratory Depth Respiratory Pattern Blood Pressure Blood Pressure Mean Blood Pressure Position Pulse Oximetry 96 96 94 Oxygen Delivery Method Room Air 05/20/18 17:10 05/20/18 17:20 05/20/18 17:24 Temperature Temperature Source Sepsis Recent Fever Within 48 Hours Sepsis New/Unexplained Change in Mental Status Sepsis Action Taken by Nursing Pulse Rate 58 L 62 57 L Pulse Rate from SpO2 Sensor 58 L 60 58 L Pulse Rhythm Pulse Strength Respiratory Rate 20 18 19 Respiratory Effort / Characteristics Respiratory Depth Respiratory Pattern Blood Pressure 172/153 H Blood Pressure Mean 159 Blood Pressure Position Pulse Oximetry 94 92 95 Oxygen Delivery Method 05/20/18 17:30 05/20/18 17:40 05/20/18 17:50 Temperature Temperature Source Sepsis Recent Fever Within 48 Hours Sepsis New/Unexplained Change in Mental Status Sepsis Action Taken by Nursing Pulse Rate 54 L 57 L 51 L Pulse Rate from SpO2 Sensor 55 L 56 L 51 L Pulse Rhythm Pulse Strength Respiratory Rate 13 14 5 L Respiratory Effort / Characteristics Respiratory Depth Respiratory Pattern Blood Pressure Blood Pressure Mean Blood Pressure Position Pulse Oximetry 93 97 96 Oxygen Delivery Method 05/20/18 18:00 05/20/18 18:01 05/20/18 18:10 Temperature Temperature Source Sepsis Recent Fever Within 48 Hours Sepsis New/Unexplained Change in Mental Status Sepsis Action Taken by Nursing Pulse Rate 52 L 52 L 54 L Pulse Rate from SpO2 Sensor 53 L 54 L 53 L Pulse Rhythm Pulse Strength Respiratory Rate 6 L 4 L 11 L Respiratory Effort / Characteristics Respiratory Depth Respiratory Pattern Blood Pressure 97/59 L Blood Pressure Mean 71 Blood Pressure Position Pulse Oximetry 96 95 84 L Oxygen Delivery Method 05/20/18 18:20 05/20/18 18:30 05/20/18 18:40 Temperature Temperature Source Sepsis Recent Fever Within 48 Hours Sepsis New/Unexplained Change in Mental Status Sepsis Action Taken by Nursing Pulse Rate 52 L 50 L 51 L Pulse Rate from SpO2 Sensor 53 L 50 L 51 L Pulse Rhythm Pulse Strength Respiratory Rate 11 L 4 L 7 L Respiratory Effort / Characteristics Respiratory Depth Respiratory Pattern Blood Pressure Blood Pressure Mean Blood Pressure Position Pulse Oximetry 97 95 95 Oxygen Delivery Method 05/20/18 18:50 05/20/18 19:00 05/20/18 19:10 Temperature Temperature Source Sepsis Recent Fever Within 48 Hours Sepsis New/Unexplained Change in Mental Status Sepsis Action Taken by Nursing Pulse Rate 52 L 57 L 49 L Pulse Rate from SpO2 Sensor 52 L 50 L 50 L Pulse Rhythm Pulse Strength Respiratory Rate 6 L 8 L 0 L Respiratory Effort / Characteristics Respiratory Depth Respiratory Pattern Blood Pressure Blood Pressure Mean Blood Pressure Position Pulse Oximetry 96 95 96 Oxygen Delivery Method 05/20/18 19:20 05/20/18 19:30 05/20/18 19:40 Temperature Temperature Source Sepsis Recent Fever Within 48 Hours Sepsis New/Unexplained Change in Mental Status Sepsis Action Taken by Nursing Pulse Rate 51 L 50 L 52 L Pulse Rate from SpO2 Sensor 51 L 51 L 52 L Pulse Rhythm Pulse Strength Respiratory Rate 6 L 0 L 21 Respiratory Effort / Characteristics Respiratory Depth Respiratory Pattern Blood Pressure Blood Pressure Mean Blood Pressure Position Pulse Oximetry 94 96 98 Oxygen Delivery Method 05/20/18 19:50 05/20/18 19:53 05/20/18 20:00 Temperature Temperature Source Sepsis Recent Fever Within 48 Hours Sepsis New/Unexplained Change in Mental Status Sepsis Action Taken by Nursing Pulse Rate 51 L 53 L 52 L Pulse Rate from SpO2 Sensor 52 L 52 L 53 L Pulse Rhythm Pulse Strength Respiratory Rate 14 22 21 Respiratory Effort / Characteristics Respiratory Depth Respiratory Pattern Blood Pressure 125/61 Blood Pressure Mean 82 Blood Pressure Position Pulse Oximetry 94 Oxygen Delivery Method CONSTITUTIONAL/VITAL SIGNS: Reviewed / noted above. GENERAL: Non-toxic in appearance. Chronic tremors of upper and lower extremities that are present. Patient is drowsy but responds to verbal commands and answers basic questions verablly. Generalized weakness. INTEGUMENTARY: Warm, dry, and [place]. HEAD: Normocephalic. EYES: without scleral icterus or trauma. ENT/OROPHARYNX: clear and dry mucus membranes. LYMPHADENOPATHY/NECK: Is supple without lymphadenopathy or meningismus. RESPIRATORY: Lungs clear and equal. CARDIOVASCULAR: Regular rate and rhythm. GI/ABDOMEN: Soft and nontender. No organomegaly or pulsatile mass. No rebound or guarding. Normal bowel sounds. EXTREMITIES: Warm and well perfused. BACK: No CVA tenderness. NEUROLOGICAL: Intact without focal deficits. PSYCHIATRIC: normal affect. MUSCULOSKELETAL: Normally developed with good muscle tone. Course 1649: Past medical records reviewed. The patient was evaluated in room C10, and a complete history and physical examination were performed. 2054: I reviewed the patient's case with Dr. Latif, [facility] Hospitalist. He agrees to evaluate the patient for further management and care. Consultations Consultation #1: I reviewed the patient's case with Dr. Latif, [facility] Hospitalist. He agrees to evaluate the patient for further management and care. Time: 20:55 Administered Medications Discontinued Medications Sodium Chloride (Nss 1000ml) 1,000 mls @ 999 mls/hr IV .Q1H1M KENIA Stop: 05/20/18 18:00 Last Infusion: 05/20/18 18:32 Dose: 0 mls/hr Documented by: [id number] Admin: 05/20/18 17:25 Dose: 999 mls/hr Documented by: [id number] Sodium Chloride (Nss 1000ml) 1,000 mls @ 999 mls/hr IV .Q1H1M ONE Stop: 05/20/18 20:10 Last Admin: 05/20/18 19:16 Dose: 999 mls/hr Documented by: [id number] Medical Decision Making Differential Diagnosis Differential includes acute coronary syndrome, myocardial infarction, CVA, TIA, anemia, infection, pneumonia, UTI, pyelonephritis, poor nutrition, dehydration, electrolyte disturbance,hypoglycemia. Medical Records Attestation: I reviewed the patient's medical records. Home Medications Current Medication List: was personally reviewed by me Laboratory Data Attestation: I reviewed the patient's lab results. Result diagrams: 05/20/18 16:40 05/20/18 16:40 Lab Results 05/20/18 05/20/18 05/20/18 Range/Units 16:40 16:40 Unknown WBC 5.50 (4.8-10.8) K/uL RBC 4.43 L (4.7-6.1) M/uL Hgb 14.2 (14.0-18.0) g/dL Hct 41.4 L (42-52) % MCV 93.5 (80-100) fL MCH 32.1 (25-34) pg MCHC 34.3 (32-36) g/dL RDW Std Deviation 46.0 (36.4-46.3) fL RDW Coeff of Eunice 13.4 (11.5-14.5) % Plt Count 139 (130-400) K/uL MPV 8.8 (7.4-10.4) fL Immature Gran % (Auto) 0.0 % Neut % (Auto) 69.0 % Lymph % (Auto) 20.4 % [place] % (Auto) 8.9 % Eos % (Auto) 1.3 % Baso % (Auto) 0.4 % Immature Gran # (Auto) 0.00 (0.00-0.02) K/uL Neut # (Auto) 3.80 (1.4-6.5) K/uL Lymph # (Auto) 1.12 L (1.2-3.4) K/uL [place] # (Auto) 0.49 (0.11-0.59) K/uL Eos # (Auto) 0.07 (0-0.5) K/uL Baso # (Auto) 0.02 (0-0.2) K/uL Sodium 143 (136-145) mmol/L Potassium 3.8 (3.5-5.1) mmol/L Chloride 108 H (98-107) mmol/L Carbon Dioxide 30 (21-32) mmol/L Anion Gap 5.0 (3-11) BUN 14 (7-18) mg/dl Creatinine 0.97 (0.6-1.4) mg/dl Est Cr Clr Drug Dosing Not Reportable Est GFR ( Amer) 102.9 Est GFR (Non-Af Amer) 88.8 BUN/Creatinine Ratio 14.7 (10-20) Glucose 140 H (70-99) mg/dl Calcium 8.6 (8.5-10.1) mg/dl Urine Color Dark Yellow Urine Appearance Cloudy H (Clear) Urine pH 6.0 (4.5-7.5) Ur Specific [place] 1.034 H (1.000-1.030) Urine Protein Trace H (Negative) Urine Glucose (UA) Negative (Negative) Urine Ketones 1+ H (Negative) Urine Blood 3+ H (Negative) Urine Nitrite Negative (Negative) Urine Bilirubin Negative (Negative) Urine Urobilinogen Negative (Negative) Ur Leukocyte Esterase 2+ H (Negative) Urine WBC (Auto) >30 H (0-5) /hpf Urine RBC (Auto) >30 H (0-4) /hpf U Hyaline Cast (Auto) Not Reportable U Epithel Cells (Auto) 10-20 H (0-5) /lpf Urine Bacteria (Auto) 1+ H (Negative) Urine Mucus Present H (None Prsent) Imaging Data Radiologist's Impression: Radiology results as stated below per my review and the radiologist's interpretation: XR chest 1V portable HISTORY: 52 years-old Male weakness acute weakness COMPARISON: Chest radiograph 05/15/2018 TECHNIQUE: Portable AP view of the chest FINDINGS: Cardiomediastinal and hilar silhouettes are within normal limits. Trace left pleural effusion with subsegmental left basilar opacities. No pneumothorax or overt pulmonary edema. Degenerative changes of the shoulders and spine. Cholecystectomy clips. Convex right curvature of the lower thoracic spine. IMPRESSION: Trace left pleural effusion with subsegmental left basilar opacities suggestive of atelectasis or pneumonitis. The above report was generated using voice recognition software. It may contain grammatical, syntax or spelling errors. Electronically signed by: Yogesh Keen M.D. 05/20/2018 5:[address] head/brain wo con CLINICAL HISTORY: 52 years-old Male with dec mental status. Acutely altered mental status TECHNIQUE: Multiple axial CT images of the head were obtained without contrast. A dose lowering technique was utilized adhering to the principles of ALARA. CT DOSE: 614.27 mGy.cm COMPARISON: CT head 05/18/2018. FINDINGS: No acute intracranial hemorrhage, midline shift, intracranial mass, hydrocephalus, territorial ischemia or abnormal extra-axial collection. The calvarium is intact. Mild mucosal thickening of the maxillary sinuses. Mastoid air cells are clear. IMPRESSION: No acute intracranial abnormality The above report was generated using voice recognition software. It may contain grammatical, syntax or spelling errors. Electronically signed by: Yogesh Keen M.D. 05/20/2018 8:51 PM Blood Pressure Blood Pressure Findings: Normal blood pressure Blood Pressure Disposition: elevated BP felt to be situational MDM Narrative This is a 52-year-old male who chronically lives in a detention. He is mostly debilitated and gets around in a wheelchair. He does not ambulate. The patient was brought in by a care worker from the facility. She reports that the patient seems a little more lethargic than his baseline. He was being transferred today with her assistance and the fell. He did not strike his head. She feels that his mental status is slightly diminished compared to baseline. The patient does answer questions verbally. He follows commands. He has a chronic tremor in his entire body. The patient denies any complaints. His mucous membranes are dry. CBC is normal, complete metabolic panel was normal, glucose is 140, chest x-ray did not show acute process. Urinalysis is concerning for infection. CT scan of the brain did not show acute process. The patient was told the results of the test. The patient will be seen in the hospital for further inpatient evaluation as the patient resides at a detention. They did not feel comfortable taking him home in his current altered mental state. The hospitalist was made aware the patient. Impression & Plan UTI (urinary tract infection), Altered mental status : UTI (urinary tract infection) Qualifiers: Urinary tract infection type: site unspecified Hematuria presence: with hematuria Qualified Code(s): N39.0 - Urinary tract infection, site not specified Altered mental status Qualifiers: Altered mental status type: unspecified Qualified Code(s): R41.82 - Altered mental status, unspecified The scribe's documentation has been prepared under my direction and personally reviewed by me in its entirety. I confirm that the note above accurately reflects all work, treatment, procedures, and medical decision making performed by me.
[2018-05-20 17:07] LABS: Basophils # (auto) 0.02 K/uL (0-0.2); Basophils % (auto) 0.4 %; Eosinophils # (auto) 0.07 K/uL (0-0.5); Eosinophils % (auto) 1.3 %; Hematocrit (blood only) 41.4 % (42-52); Hemoglobin 14.2 g/dL (14.0-18.0); Lymphocytes # (auto) 1.12 K/uL (1.2-3.4); Lymphocytes % (auto) 20.4 %; Mean Corpuscular Hgb Conc 34.3 g/dL (32-36); Mean Corpuscular Volume 93.5 fL (80-100); Mean Platelet Volume 8.8 fL (7.4-10.4); Monocytes # (auto) 0.49 K/uL (0.11-0.59); Monocytes % (auto) 8.9 %; Platelet Count 139 K/uL (130-400); RDW Coefficient of Variation 13.4 % (11.5-14.5); Red Blood Count 4.43 M/uL (4.7-6.1)
[2018-05-20 17:16] LABS: BUN Creatinine Ratio 14.7 (10-20); Blood Urea Nitrogen 14 mg/dl (7-18); Calcium 8.6 mg/dl (8.5-10.1); Carbon Dioxide 30 mmol/L (21-32); Chloride 108 mmol/L (98-107); Est GFR (African American) 102.9; Est GFR (Non-African American) 88.8; Glucose 140 mg/dl (70-99); Potassium 3.8 mmol/L (3.5-5.1); Sodium 143 mmol/L (136-145)
--- NOTE | 2018-05-20 17:50 | XRay Report ---
XR chest 1V portable HISTORY: 52 years-old Male weakness acute weakness COMPARISON: Chest radiograph 05/15/2018 TECHNIQUE: Portable AP view of the chest FINDINGS: Cardiomediastinal and hilar silhouettes are within normal limits. Trace left pleural effusion with cruz bsegmental left basilar opacities. No pneumothorax or overt pulmonary edema. Degenerative changes of the shoulders and spine. Cholecystectomy clips. Convex right curvature of the lower thoracic spine. IMPRESSION: Trace left pleural effusion with subsegmental left basilar opacities suggestive of atelec tasis or pneumonitis. The above report was generated using voice recognition software. It may contain grammatical, syntax o r spelling errors. Electronically signed by: Yogesh Keen M.D. 05/20/2018 5:48 PM
[2018-05-20] MEDS ORDERED: SODIUM CHLORIDE 0.9% 1000ML 1,000 ML IV ONE (19:10)
[2018-05-20 20:29] LABS: Appearance Urine Cloudy (Clear); Blood Urine 3+ (Negative); Color Urine Dark Yellow; Glucose Urine UA Negative (Negative); Ketones Urine 1+ (Negative); Leukocyte Esterase Urine 2+ (Negative); Nitrite Urine Negative (Negative); Protein Urine Trace (Negative); RBC Urine Automated >30 /hpf (0-4); Specific Gravity Urine 1.034 (1.000-1.030); Urobilinogen Urine Negative (Negative); WBC Urine Automated >30 /hpf (0-5)
[2018-05-20 20:35] LABS: Bilirubin Urine Negative (Negative); Ictotest Urine Negative (Negative)
[2018-05-20 20:46] LABS: Bacteria Urine Automated 1+ (Negative)
[2018-05-20 20:47] LABS: Mucus Urine Present (None Prsent)
[2018-05-20] MEDS ORDERED: cefTRIAXone SODIUM 1,000 MG in DEXTROSE 5% 50 ML IV STA (20:47)
--- NOTE | 2018-05-20 20:53 | CT Scan Report ---
CT head/brain wo con CLINICAL HISTORY: 52 years-old Male with dec mental status. Acutely altered mental status TECHNIQUE: Multiple axial CT images of the head were obtained without contrast. A dose lowering tech nique was utilized adhering to the principles of ALARA. CT DOSE: 614.27 mGy.cm COMPARISON: CT head 05/18/2018. FINDINGS: No acute intracranial hemorrhage, midline shift, intracranial mass, hydrocephalus, territorial ischem ia or abnormal extra-axial collection. The calvarium is intact. Mild mucosal thickening of the maxillary sinuses. Mastoid air cells are kathy ar. IMPRESSION: No acute intracranial abnormality The above report was generated using voice recognition software. It may contain grammatical, syntax o r spelling errors. Electronically signed by: Yogesh Keen M.D. 05/20/2018 8:51 PM
[2018-05-20] MEDS ORDERED: cefTRIAXone SODIUM 1000MG/50ML D5W ONE (20:59)
--- NOTE | 2018-05-20 22:59 | History & Physical Report ---
Date of Service May 20, 2018 Assessment & Plan (1) Altered mental status: Altered mental status/epilepsy/seizure like activity/accidental fall from bed/mild mental retardation-- Differential primarily includes: Seizure activity with/without postictal state, postconcussive syndrome status post mechanical fall, encephalopathy secondary to UTI, other cardiac, neurologic, psychiatric or other process. The patient will be admitted to telemetry for cardiac rhythm monitoring for possible arrhythmia. Seizure precautions. Neurochecks. Continue usual medications: Buspirone, Clobazam, felbamate, fluoxetine, gabapentin, lacosamide, lamotrigine and propranolol. Present on Admission?: Yes (2) UTI (urinary tract infection): Follow urine culture and sensitivity. Continue ceftriaxone 1 g IV daily begun in the ED. Present on Admission?: Yes (3) Accidental fall from bed: As noted above Present on Admission?: Yes (4) Epilepsy: As noted above. Present on Admission?: Yes (5) Seizure-like activity: We will order an EEG. Consult neurology Present on Admission?: Yes (6) Mild mental retardation: Continue usual medications Present on Admission?: Yes (7) TBI (traumatic brain injury): As above.. Present on Admission?: Yes History of Present Illness Chief Complaint: The patient presents to the emergency department after a fall that occurred prior to arrival. Primary Care Provider: Jose Juan Brady MD The patient is a 52-year-old male resident of a local boarding home, who was noted by staff workers to have approximately 30 minutes of seizure-like activity where he would speak in sentences did not make any sense and was slurring his words after a fall. He was reportedly being transferred from his wheelchair to a chair and he fell over the wheelchair. There was reportedly no head trauma, and the patient had complained of generalized discomfort. At the time of my examination, the patient is sedated, and information for HPI and review of systems is gathered from the ER records and from conversation with his father, who is in the room with the patient at this time. His father does report, that he feels the patient requires more care than they can do at the boarding home, and has been attempting to get him moved to a nursing facility where he can get more continuous care. Allergies Allergy/AdvReac Type Severity Reaction Status Date / Time Bactrim Allergy Unknown dizziness Verified 10/22/17 13:25 and increase in tremor sulfamethoxazole Allergy Unknown dizziness Verified 05/20/18 17:25 and increase in tremor trimethoprim Allergy Unknown dizziness Verified 05/20/18 17:25 and increase in tremor grapefruit AdvReac Unknown INTERACTS Verified 05/20/18 17:25 WITH OTHER MEDS ibuprofen AdvReac Unknown avoids Verified 05/20/18 17:25 secondary to reactions with other medications levetiracetam AdvReac Unknown AGITATION Verified 05/20/18 17:25 Home Medications Home Medications Medication Instructions Recorded Confirmed Type acetaminophen [Tylenol] 325 mg PO Q4H PRN 11/14/17 05/20/18 History buspirone 15 mg PO QAM 11/14/17 05/20/18 History clobazam [Onfi] 5 mg PO BID 11/14/17 05/20/18 History felbamate 600 mg PO Q12H 11/14/17 05/20/18 History finasteride 5 mg PO QAM 11/14/17 05/20/18 History fluoxetine [Prozac] 20 mg PO QAM 11/14/17 05/20/18 History fluticasone propionate [Flonase 2 spray INTRANASAL QAM 11/14/17 05/20/18 History Allergy Relief] gabapentin 100 mg PO TID 11/14/17 05/20/18 History lacosamide [Vimpat] 200 mg PO Q12H 11/14/17 05/20/18 History lamotrigine [Lamictal XR] 100 mg PO Q12H 11/14/17 05/20/18 History sieluyes-xbiesvpaqBo-akshunwmS 1 applic TOPICAL BID PRN 11/14/17 05/20/18 History [Neosporin (fka-sek-wocmy)] propranolol 80 mg PO Q12H 11/14/17 05/20/18 History tamsulosin [Flomax] 0.4 mg PO Q12H 11/14/17 05/20/18 History sodium chloride [Saline Mist] 1 spray INTRANASAL Q3H PRN 02/01/18 05/20/18 History ondansetron HCl 8 mg PO Q8H PRN 03/13/18 05/20/18 History lamotrigine [Lamictal XR] 200 mg PO Q12H 04/06/18 05/20/18 History sennosides-docusate sodium 1 tab PO BID 04/30/18 05/20/18 History [Senna-S] buspirone 30 mg PO HS 05/01/18 05/20/18 History carbamide peroxide [Debrox] 5 drp OTIC (EAR) BID PRN 05/01/18 05/20/18 History lamotrigine 50 mg PO Q12H 05/01/18 05/20/18 History multivitamin,ul-lczo-uheceefj 1 tab PO QAM 05/01/18 05/20/18 History [Therems-M] vitamins A,C,H-ejce-nzuyvi 2 cap PO DAILY 05/01/18 05/20/18 History [PreserVision AREDS] lamotrigine 25 mg PO Q12H 05/20/18 05/20/18 History omeprazole 20 mg PO QAM 05/20/18 05/20/18 History Past Med/Surg History Medical History UTI (urinary tract infection) (Resolved) TBI (traumatic brain injury) (Chronic) Epilepsy (Chronic) Mild mental retardation (Chronic) Tegretol toxicity (Resolved) Urinary tract infection (Resolved) Renal colic (Resolved) Surgical History No pertinent past surgical history Social History Preferred Language: Kiswahili Communication Ability: Impaired Communication Ability Comment: able to write just very difficult for the pt 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 Beliefs That Will Affect Care: None Current Living Situation: Other Current Living Situation Comment: [facility] Other Information That Helps Us Care for You: No Feels Safe at Home: No Safety Concerns: Afraid for Self Smoking Status: Never smoker Hx Alcohol Use: No Hx Substance Use: No Review of Systems Limited due to patient's current state Physical Exam Vital Signs (Past 24 Hours): Last Vital Signs Temp 37.2 C 05/20/18 16:45 Pulse 48 L 05/20/18 22:10 Resp 5 L 05/20/18 22:10 BP 126/78 05/20/18 22:01 Pulse Ox 85 L 05/20/18 22:10 Physical Exam: The patient is nonresponding, normocephalic and atraumatic, lying in bed and in no acute distress. HEENT--PERRL, mucous membranes and oropharynx normal. Neck--supple. No JVD. No bruits. Thyroid normal, trachea midline, no adenopathy. Heart--normal S1 and S2. No murmurs, rubs or gallops. Lungs--clear bilaterally, no respiratory distress, no accessory muscle use. Abdomen--normal bowel sounds and soft. Nontender. Nondistended. Extremities--no cyanosis or clubbing. No edema. There are good distal pulses b/l. Dermatologic--normal skin turgor, normal color, no abnormal lymph nodes, no rash. Neurologic--cranial nerves II through XII grossly intact. Rheumatologic--limited exam Psychiatric--nonresponding Results & Data Laboratory Results Laboratory Results WBC 5.50 K/uL (4.8-10.8) 05/20/18 16:40 RBC 4.43 M/uL (4.7-6.1) L 05/20/18 16:40 Hgb 14.2 g/dL (14.0-18.0) 05/20/18 16:40 Hct 41.4 % (42-52) L 05/20/18 16:40 MCV 93.5 fL (80-100) 05/20/18 16:40 MCH 32.1 pg (25-34) 05/20/18 16:40 MCHC 34.3 g/dL (32-36) 05/20/18 16:40 RDW Std Deviation 46.0 fL (36.4-46.3) 05/20/18 16:40 RDW Coeff of Eunice 13.4 % (11.5-14.5) 05/20/18 16:40 Plt Count 139 K/uL (130-400) 05/20/18 16:40 MPV 8.8 fL (7.4-10.4) 05/20/18 16:40 Immature Gran % (Auto) 0.0 % 05/20/18 16:40 Neut % (Auto) 69.0 % 05/20/18 16:40 Lymph % (Auto) 20.4 % 05/20/18 16:40 [place] % (Auto) 8.9 % 05/20/18 16:40 Eos % (Auto) 1.3 % 05/20/18 16:40 Baso % (Auto) 0.4 % 05/20/18 16:40 Immature Gran # (Auto) 0.00 K/uL (0.00-0.02) 05/20/18 16:40 Neut # (Auto) 3.80 K/uL (1.4-6.5) 05/20/18 16:40 Lymph # (Auto) 1.12 K/uL (1.2-3.4) L 05/20/18 16:40 [place] # (Auto) 0.49 K/uL (0.11-0.59) 05/20/18 16:40 Eos # (Auto) 0.07 K/uL (0-0.5) 05/20/18 16:40 Baso # (Auto) 0.02 K/uL (0-0.2) 05/20/18 16:40 Sodium 143 mmol/L (136-145) 05/20/18 16:40 Potassium 3.8 mmol/L (3.5-5.1) 05/20/18 16:40 Chloride 108 mmol/L (98-107) H 05/20/18 16:40 Carbon Dioxide 30 mmol/L (21-32) 05/20/18 16:40 Anion Gap 5.0 (3-11) 05/20/18 16:40 BUN 14 mg/dl (7-18) 05/20/18 16:40 Creatinine 0.97 mg/dl (0.6-1.4) 05/20/18 16:40 Est Cr Clr Drug Dosing Not Reportable 05/20/18 16:40 Est GFR ( Amer) 102.9 05/20/18 16:40 Est GFR (Non-Af Amer) 88.8 05/20/18 16:40 BUN/Creatinine Ratio 14.7 (10-20) 05/20/18 16:40 Glucose 140 mg/dl (70-99) H 05/20/18 16:40 Calcium 8.6 mg/dl (8.5-10.1) 05/20/18 16:40 Urine Color Dark Yellow 05/20/18 Unknown Urine Appearance Cloudy (Clear) H 05/20/18 Unknown Urine pH 6.0 (4.5-7.5) 05/20/18 Unknown Ur Specific [place] 1.034 (1.000-1.030) H 05/20/18 Unknown Urine Protein Trace (Negative) H 05/20/18 Unknown Urine Glucose (UA) Negative (Negative) 05/20/18 Unknown Urine Ketones 1+ (Negative) H 05/20/18 Unknown Urine Blood 3+ (Negative) H 05/20/18 Unknown Urine Nitrite Negative (Negative) 05/20/18 Unknown Urine Bilirubin Negative (Negative) 05/20/18 Unknown Urine Urobilinogen Negative (Negative) 05/20/18 Unknown Ur Leukocyte Esterase 2+ (Negative) H 05/20/18 Unknown Urine WBC (Auto) >30 /hpf (0-5) H 05/20/18 Unknown Urine RBC (Auto) >30 /hpf (0-4) H 05/20/18 Unknown U Hyaline Cast (Auto) Not Reportable 05/20/18 Unknown U Epithel Cells (Auto) 10-20 /lpf (0-5) H 05/20/18 Unknown Urine Bacteria (Auto) 1+ (Negative) H 05/20/18 Unknown Urine Mucus Present (None Prsent) H 05/20/18 Unknown Diagnostic Findings [place], [place] [phone] XRay Report Patient: ARMANI DOTY Date: 05/20/18 MR#: [id number]: [address] Acct ID:[id number]: Date: 1965[facility] Zip: [place] [address] Age: 52Location: ED Sex: M Room/Bed: Att Phy: Diagnosis: FALL, AMS Yeny Phy: Jose Juan Brady MDService Date: 05/20/18 Fam Phy: Interpreting Phy: oCnor Keen Admit Phy: Ordering Phy: Roberto Leonardo D.O. cc: ~ XR chest 1V portable HISTORY: 52 years-old Male weakness acute weakness COMPARISON: Chest radiograph 05/15/2018 TECHNIQUE: Portable AP view of the chest FINDINGS: Cardiomediastinal and hilar silhouettes are within normal limits. Trace left pleural effusion with subsegmental left basilar opacities. No pneumothorax or overt pulmonary edema. Degenerative changes of the shoulders and spine. Cholecystectomy clips. Convex right curvature of the lower thoracic spine. IMPRESSION: Trace left pleural effusion with subsegmental left basilar opacities suggestive of atelectasis or pneumonitis. The above report was generated using voice recognition software. It may contain grammatical, syntax or spelling errors. Electronically signed by: Yogesh Keen M.D. 05/20/2018 5:48 PM [place], [place] [phone] CT Scan Report Patient: ARMANI DOTY Date: 05/20/18 MR#: [id number]: [address] Acct ID:[id number]: Date: 1965ty Zip: [place] [id number] Age: 52Location: ED Sex: M Room/Bed: Att Phy: Diagnosis: FALL, AMS Yeny Phy: Jose Juan Brady MDService Date: 05/20/18 Fam Phy: Interpreting Phy: Conor Keen Admit Phy: Ordering Phy: Roberto Leonardo D.O. cc: ~ CT head/brain wo con CLINICAL HISTORY: 52 years-old Male with dec mental status. Acutely altered mental status TECHNIQUE: Multiple axial CT images of the head were obtained without contrast. A dose lowering technique was utilized adhering to the principles of ALARA. CT DOSE: 614.27 mGy.cm COMPARISON: CT head 05/18/2018. FINDINGS: No acute intracranial hemorrhage, midline shift, intracranial mass, hydrocephalus, territorial ischemia or abnormal extra-axial collection. The calvarium is intact. Mild mucosal thickening of the maxillary sinuses. Mastoid air cells are clear. IMPRESSION: No acute intracranial abnormality The above report was generated using voice recognition software. It may contain grammatical, syntax or spelling errors. Electronically signed by: Yogesh Keen M.D. 05/20/2018 8:51 PM Dictated: 05/20/182043 Transcribed: 05/20/182043 Code Status & VTE Plan Code Status Full code VTE Prophylaxis Plan VTE Prophylaxis will be ordered: Yes (1) Altered mental status Altered mental status type: unspecified Qualified Code(s): R41.82 - Altered mental status, unspecified (2) UTI (urinary tract infection) Hematuria presence: with hematuria Urinary tract infection type: site unspecified Qualified Code(s): N39.0 - Urinary tract infection, site not specified; R31.9 - Hematuria, unspecified (3) Accidental fall from bed Encounter type: initial encounter Qualified Code(s): W06.XXXA - Fall from bed, initial encounter
[2018-05-21] MEDS ORDERED: CARBAMIDE PEROXIDE 6.5% 15 ML BTL OT PRN (00:53)
[2018-05-21] MEDS ORDERED: NEOMYCIN/POLYMYX/BACITR OINT 15 GM TUBE TOP PRN (00:53)
[2018-05-21] MEDS ORDERED: SODIUM CHLORIDE 0.65% NA SOLN 45 ML (OCEAN) NAE PRN (00:53)
[2018-05-21] MEDS ORDERED: ACETAMINOPHEN 325 MG TAB PO PRN ×2 (00:53)
[2018-05-21] MEDS ORDERED: ONDANSETRON 8 MG TABLET PO PRN (00:53)
[2018-05-21] MEDS ORDERED: POLYETHYLENE (MIRALAX) 17 GM PACK PO PRN (00:53)
[2018-05-21] MEDS: PATIENT'S HEIGHT AND/OR WEIGHT NEEDED SCH ×2 (02:37→06:55)
[2018-05-21] MEDS: ONFI~ORDER AWAITING ACTION SCH ×2 (06:54→16:34)
[2018-05-21] MEDS: CEROVITE ADV FORMULA TAB PO SCH (07:41)
[2018-05-21] MEDS: FLUTICASONE PROPIONATE NA SPR 16 GM BTL NAE SCH (07:42)
[2018-05-21] MEDS: TAMSULOSIN HCL 0.4 MG CAP PO SCH ×2 (07:42→20:13)
[2018-05-21] MEDS: PROPRANOLOL HCL LA 80 MG CAPCR PO SCH ×2 (07:42→20:14)
[2018-05-21] MEDS: PANTOprazole 40 MG TAB PO SCH (07:42)
[2018-05-21] MEDS: FINASTERIDE 5 MG TAB PO SCH (07:43)
[2018-05-21] MEDS: DOCUSATE SODIUM/SENNA 50/8.6MG TAB PO SCH ×2 (07:43→20:14)
[2018-05-21] MEDS: FLUOXETINE HCL 20 MG CAP PO SCH (07:43)
[2018-05-21] MEDS: BusPIRone 15 MG TAB PO SCH ×2 (07:43→20:13)
[2018-05-21] MEDS: GABAPENTIN 100 MG CAP PO SCH ×3 (07:43→20:05)
[2018-05-21 08:01] LABS: INR 1.1 (0.9-1.1); Prothrombin Time 11.1 Seconds (9.0-12.0)
[2018-05-21] MEDS: LACOSAMIDE 50 MG TABLET PO SCH ×2 (08:05→20:51)
--- NOTE | 2018-05-21 09:26 | Neurology Consultation ---
Date of Consultation May 21, 2018 Assessment & Plan (1) Acute encephalopathy: This is a 52-year-old male with slowly progressive general decline and worsening frequency of falls. In addition also appears to have recent acute encephalopathy likely secondary to UTI. No clear seizure activity recently. Last clinical seizure was May 15 and the patient was seen in clinic for this. Lamictal was recently increased to May 03. Recommendations: Recommend physical therapy and [facility] facility evaluation (this was part of his outpatient plan) I have ordered an ammonia level, Lamictal level, and felbamate level to rule out drug toxicities and other causes for metabolic encephalopathy. Patient needs to be placed back on his home medications for seizures. This includes Lamictal ER 375 mg twice a day, Onfi 5 mg twice a day, Vimpat 200 mg twice a day, felbamate 600 mg twice a day (currently the patient only has Vimpat ordered). Patient is at high risk for breakthrough seizures not being on his home medications. Thank you for allowing me to participate in this patient's care. If there is any questions or concerns, feel free to call/page me. History of Present Illness Reason for Consultation: Concern for seizure-like activity Attending Physician: Corby Renteria, History of Present Illness This is a 52-year-old male who presents with fall and worsening drowsy/lethargic. Upon reviewing the patient's chart the patient has been to the emergency room multiple times this month and previous month mostly for falls either out of bed or with transferring. He was seen last month for altered mental status believed to be due to UTI. Patient has been seen in the emergency room on the 16th, 14th, eighth, second of this month all for all falls. As an outpatient his primary care physician with neurology in agreement had felt that he likely needed [facility] facility for ongoing care due to his general deteriorating status, but initially it sounded like the family denied this but later accepted trying to get him into a [facility] facility. When the patient initially presented to the ER this time it was due to staff trying to transfer him from his wheelchair to a chair. He suffered a fall. Staff reported that he was making sense but he was speaking in sentences and his speech was slightly slurred compared to baseline. He was appearing more drowsy and lethargic than normal. No clear seizure-like activity. His seizures in the past has been described as tonic posturing with unresponsiveness. [facility] due to his multiple falls and difficulty caring for him. Patient did have clear clinical seizure on 15 May which was described as rigidity and unresponsiveness for about 15 minutes. Before that his last clinical seizure was November 2017. Patient had had his Lamictal recently increased the end of April to 375 mg twice a day. No other recent antiepileptic medication changes. Upon to be evaluated in the emergency room he was noted to have a UTI on UA. Antibiotics have been started. CT of the head reported images were reviewed and unremarkable. No acute process. March Lamictal level was 14. TSH was checked earlier this year and within normal limits. Upon reviewing outpatient chart, patient should be on Lamictal extended release 375 mg twice a day, Vimpat 200 mg twice a day, Onfi 5 mg twice a day, felbamate 600 mg twice a day. Propranolol and gabapentin is for tremors. Social history: [facility]. Is wheelchair-bound. Activities of daily living is mostly dependent on others. Allergies Allergy/AdvReac Type Severity Reaction Status Date / Time Bactrim Allergy Unknown dizziness Verified 10/22/17 13:25 and increase in tremor sulfamethoxazole Allergy Unknown dizziness Verified 05/20/18 17:25 and increase in tremor trimethoprim Allergy Unknown dizziness Verified 05/20/18 17:25 and increase in tremor grapefruit AdvReac Unknown INTERACTS Verified 05/20/18 17:25 WITH OTHER MEDS ibuprofen AdvReac Unknown avoids Verified 05/20/18 17:25 secondary to reactions with other medications levetiracetam AdvReac Unknown AGITATION Verified 05/20/18 17:25 Home Medications Home Medications Medication Instructions Recorded Confirmed Type acetaminophen [Tylenol] 325 mg PO Q4H PRN 11/14/17 05/20/18 History buspirone 15 mg PO QAM 11/14/17 05/20/18 History clobazam [Onfi] 5 mg PO BID 11/14/17 05/20/18 History felbamate 600 mg PO Q12H 11/14/17 05/20/18 History finasteride 5 mg PO QAM 11/14/17 05/20/18 History fluoxetine [Prozac] 20 mg PO QAM 11/14/17 05/20/18 History fluticasone propionate [Flonase 2 spray INTRANASAL QAM 11/14/17 05/20/18 History Allergy Relief] gabapentin 100 mg PO TID 11/14/17 05/20/18 History lacosamide [Vimpat] 200 mg PO Q12H 11/14/17 05/20/18 History lamotrigine [Lamictal XR] 100 mg PO Q12H 11/14/17 05/20/18 History ccrhtbqx-wlyvwxssjEb-bsvwgdagO 1 applic TOPICAL BID PRN 11/14/17 05/20/18 History [Neosporin (yyx-mtn-mwqae)] propranolol 80 mg PO Q12H 11/14/17 05/20/18 History tamsulosin [Flomax] 0.4 mg PO Q12H 11/14/17 05/20/18 History sodium chloride [Saline Mist] 1 spray INTRANASAL Q3H PRN 02/01/18 05/20/18 History ondansetron HCl 8 mg PO Q8H PRN 03/13/18 05/20/18 History lamotrigine [Lamictal XR] 200 mg PO Q12H 04/06/18 05/20/18 History sennosides-docusate sodium 1 tab PO BID 04/30/18 05/20/18 History [Senna-S] buspirone 30 mg PO HS 05/01/18 05/20/18 History carbamide peroxide [Debrox] 5 drp OTIC (EAR) BID PRN 05/01/18 05/20/18 History lamotrigine 50 mg PO Q12H 05/01/18 05/20/18 History multivitamin,ve-yhzv-dwzktuaz 1 tab PO QAM 05/01/18 05/20/18 History [Therems-M] vitamins A,C,B-gwre-bfzzly 2 cap PO DAILY 05/01/18 05/20/18 History [PreserVision AREDS] lamotrigine 25 mg PO Q12H 05/20/18 05/20/18 History omeprazole 20 mg PO QAM 05/20/18 05/20/18 History Patient History Medical History UTI (urinary tract infection) (Resolved) TBI (traumatic brain injury) (Chronic) Epilepsy (Chronic) Mild mental retardation (Chronic) Tegretol toxicity (Resolved) Urinary tract infection (Resolved) Renal colic (Resolved) Surgical History No pertinent past surgical history Social History Preferred Language: Nepali Communication Ability: Impaired Communication Ability Comment: able to write just very difficult for the pt 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 Beliefs That Will Affect Care: None Current Living Situation: Other Current Living Situation Comment: [facility] Other Information That Helps Us Care for You: No Feels Safe at Home: No Safety Concerns: Afraid for Self Smoking Status: Never smoker Hx Alcohol Use: No Hx Substance Use: No Review of Systems Complete review of systems otherwise negative except for the above-noted in HPI Physical Exam Vital Signs (Past 24 Hours): Last Vital Signs Temp 36.5 C 05/21/18 07:20 Pulse 49 L 05/21/18 08:00 Resp 18 05/21/18 07:20 BP 115/82 05/21/18 07:20 Pulse Ox 95 05/21/18 07:20 Physical Exam: Gen.: Patient is lethargic and difficult to wake up Heart: Regular rate and rhythm Extremities: No gross deformities or rashes noted Neurological examination: Mental status: Patient is lethargic. Oriented to person and place. Able to give his own subjective history. Poor fund of knowledge. Attention and concentration poor. Remote and recent memory impaired Speech is fluent with mild dysarthria Cranial nerves: Visual clifford intact to confrontation. Funduscopic examination was difficult to visualize. Pupils equally round and reactive to light. Extraocular muscles intact without nystagmus. No facial asymmetry noted. Facial sensation intact. Tongue midline. Good palatal elevation. Good shoulder shrug bilaterally. Hearing grossly intact voice. Strength: Full and antigravity in all extremities .Tone is normal. Sensation: Grossly intact to light touch in all extremities Deep tendon reflexes: +1 in bilateral biceps and patellar. Toes areequivical to plantar stimulation bilaterally Coordination: Patient was unable to perform in formal coordination testing due to mental status Station within the bed is normal.
--- NOTE | 2018-05-21 09:30 | Procedure Note ---
EEG Procedure Note Date of Service May 21, 2018 Start / End Times Start Time: 8:28 AM End Time: 8:48 AM Referring Physician Norris Puentes History This is a 52-year-old male who presents with fall and acute encephalopathy with a history of epilepsy. EEG for further evaluation of possible seizure etiology. Home Medication List Home Medications Medication Instructions Recorded Confirmed Type acetaminophen [Tylenol] 325 mg PO Q4H PRN 11/14/17 05/20/18 History buspirone 15 mg PO QAM 11/14/17 05/20/18 History clobazam [Onfi] 5 mg PO BID 11/14/17 05/20/18 History felbamate 600 mg PO Q12H 11/14/17 05/20/18 History finasteride 5 mg PO QAM 11/14/17 05/20/18 History fluoxetine [Prozac] 20 mg PO QAM 11/14/17 05/20/18 History fluticasone propionate [Flonase 2 spray INTRANASAL QAM 11/14/17 05/20/18 History Allergy Relief] gabapentin 100 mg PO TID 11/14/17 05/20/18 History lacosamide [Vimpat] 200 mg PO Q12H 11/14/17 05/20/18 History lamotrigine [Lamictal XR] 100 mg PO Q12H 11/14/17 05/20/18 History icqgjmkk-uiznwkvgoIs-aokljtcoZ 1 applic TOPICAL BID PRN 11/14/17 05/20/18 History [Neosporin (kgp-yoa-nzjks)] propranolol 80 mg PO Q12H 11/14/17 05/20/18 History tamsulosin [Flomax] 0.4 mg PO Q12H 11/14/17 05/20/18 History sodium chloride [Saline Mist] 1 spray INTRANASAL Q3H PRN 02/01/18 05/20/18 History ondansetron HCl 8 mg PO Q8H PRN 03/13/18 05/20/18 History lamotrigine [Lamictal XR] 200 mg PO Q12H 04/06/18 05/20/18 History sennosides-docusate sodium 1 tab PO BID 04/30/18 05/20/18 History [Senna-S] buspirone 30 mg PO HS 05/01/18 05/20/18 History carbamide peroxide [Debrox] 5 drp OTIC (EAR) BID PRN 05/01/18 05/20/18 History lamotrigine 50 mg PO Q12H 05/01/18 05/20/18 History multivitamin,us-eepg-urqyvdvm 1 tab PO QAM 05/01/18 05/20/18 History [Therems-M] vitamins A,C,N-jrkh-tlnaxu 2 cap PO DAILY 05/01/18 05/20/18 History [PreserVision AREDS] lamotrigine 25 mg PO Q12H 05/20/18 05/20/18 History omeprazole 20 mg PO QAM 05/20/18 05/20/18 History Inpatient Medication List [facility]) [facility] [place] [facility] [place]: 06/20/18 08:59 Last Admin: 05/21/18 07:43 Dose: 15 mg Documented by: [id number] Finasteride (Proscar) 5 mg PO [facility] Stop: 06/20/18 08:59 Last Admin: 05/21/18 07:43 Dose: 5 mg Documented by: [id number] Fluoxetine HCl (Prozac) 20 [facility] [place] [facility] [place]: 06/20/18 08:59 Last Admin: 05/21/18 07:43 Dose: 20 mg Documented by: [id number] Fluticasone Propionate (Flonase) 2 sprays [facility] [place] [facility] [place]: 06/20/18 08:59 Last Admin: 05/21/18 07:42 Dose: 2 sprays Documented by: [id number] Gabapentin (Neurontin) 100 mg PO TID [facility] Stop: 06/20/18 08:59 Last Admin: 05/21/18 07:43 Dose: 100 mg Documented by: [id number] Lacosamide (Vimpat) 200 mg PO Q12H [facility] Stop: 06/20/18 08:59 Last Admin: 05/21/18 08:05 Dose: 200 mg Documented by: [id number] Miscellaneous (Order Awaiting Action) 1 ea N/A QS [facility] Stop: 06/20/18 07:59 Last Admin: 05/21/18 06:55 Dose: Not Given Documented by: [id number] Miscellaneous (Order Awaiting Action) 1 ea N/A QS [facility] Stop: 06/20/18 07:59 Last Admin: 05/21/18 06:54 Dose: Not Given Documented by: [id number] Miscellaneous (Order Awaiting Action) 1 ea N/A [facility] Stop: 06/20/18 07:59 Last Admin: 05/21/18 06:54 Dose: Not Given Documented by: [id number] Miscellaneous (Order Awaiting Action) 1 ea N/A [facility] Stop: 06/20/18 07:59 Last Admin: 05/21/18 06:54 Dose: Not Given Documented by: [id number] Miscellaneous (Order Awaiting Action) 1 ea N/A [facility] Stop: 06/20/18 07:59 Last Admin: 05/21/18 06:55 Dose: Not Given Documented by: [id number] Miscellaneous (Order Awaiting Action) 1 ea N/A [facility] Stop: 06/20/18 07:59 Last Admin: 05/21/18 06:55 Dose: Not Given Documented by: [id number] Miscellaneous (Order Awaiting Action) 1 ea N/A [facility] Stop: 06/20/18 07:59 Last Admin: 05/21/18 06:54 Dose: Not Given Documented by: [id number] Multivitamins/Minerals (Multivitamin W/ Minerals Tab) 1 tab PO QAM [facility] Stop: 06/20/18 08:59 Last Admin: 05/21/18 07:41 Dose: 1 tab Documented by: [id number] Pantoprazole Sodium (Protonix) 40 mg PO QAM [facility] Stop: 06/20/18 08:59 Last Admin: 05/21/18 07:42 Dose: 40 mg Documented by: [id number] Propranolol HCl (Inderal La) 80 mg PO Q12H [facility] Stop: 06/20/18 08:59 Last Admin: 05/21/18 07:42 Dose: 80 mg Documented by: [id number] Senna/Docusate Sodium (Senokot S) 1 tab PO BID [facility] Stop: 06/20/18 08:59 Last Admin: 05/21/18 07:43 Dose: 1 tab Documented by: [id number] Tamsulosin HCl (Flomax) 0.4 mg PO Q12H [facility] Stop: 06/20/18 08:59 Last Admin: 05/21/18 07:42 Dose: 0.4 mg Documented by: [id number] Discontinued Medications Ceftriaxone Sodium (Rocephin) Confirm Administered Dose 1,000 mg .ROUTE .STK-MED ONE Stop: 05/20/18 21:00 Last Admin: 05/20/18 21:00 Dose: Not Given Documented by: [id number] Sodium Chloride (Nss 1000ml) 1,000 mls @ 999 mls/hr IV .Q1H1M [facility] Stop: 05/20/18 18:00 Last Infusion: 05/20/18 18:32 Dose: 0 mls/hr Documented by: [id number] Admin: 05/20/18 17:25 Dose: 999 mls/hr Documented by: [id number] Sodium Chloride (Nss 1000ml) 1,000 mls @ 999 mls/hr IV .Q1H1M ONE Stop: 05/20/18 20:10 Last Infusion: 05/20/18 21:07 Dose: 0 mls/hr Documented by: [id number] Admin: 05/20/18 19:16 Dose: 999 mls/hr Documented by: [id number] Ceftriaxone Sodium 1,000 mg/ (Dextrose) 60 mls @ 100 mls/hr IV NOW STA Stop: 05/20/18 21:22 Last Infusion: 05/20/18 21:36 Dose: 0 mls/hr Documented by: [id number] Admin: 05/20/18 21:00 Dose: 100 mls/hr Documented by: [id number] Miscellaneous (Patient's Height And/Or Weight Needed) 1 ea N/A Q2H [facility] Stop: 06/20/18 01:29 Last Admin: 05/21/18 06:55 Dose: Not Given Documented by: [id number] Admin: 05/21/18 02:37 Dose: 1 ea Documented by: [id number] Description This is a 21 electrode EEG with a single channel dedicated to limited EKG. The electrodes were placed in accordance with the International 10-20 system. At the start of this recording the patient is in altered mental status. Background is poorly organized with a poorly formed anterior to posterior gradient. Background is composed of predominantly 6-7 Hz theta frequencies with intermixed alpha. There is at times seeing a well-formed symmetric posterior dominant rhythm of 6-7 Hz at his most awake state. Sleep was indicated by vertex waves and symmetric sleep spindles. Hyperventilation was not done. Photic stimulation at various frequencies did not produce any abnormalities. Interpretation This is an abnormal routine EEG secondary to moderate background disorganization and slowing. There was no electrographic seizures or epileptiform discharges. Clinical Correlation This EEG indicates a moderate encephalopathy of nonspecific etiology. Most of the EEG was during the asleep state, so some of the background slowing could be due to drowsiness.
[2018-05-21] MEDS: ENOXAPARIN INJ 40 MG/0.4 ML SYR SQ SCH (09:36)
--- NOTE | 2018-05-21 15:38 | Hospitalist Progress Note ---
Date of Service May 21, 2018 Assessment & Plan (1) Altered mental status: Altered mental status/epilepsy/seizure like activity/accidental fall from bed/mild mental retardation-- Differential primarily includes: Seizure activity with/without postictal state, postconcussive syndrome status post mechanical fall, encephalopathy secondary to UTI, other cardiac, neurologic, psychiatric or other process. mental status improved today, more alert, answering questions appropriately appreciate Neurology recommendations for seizures continue to treat UTI (2) UTI (urinary tract infection): no growth on urine culture treat with ceftriaxone 1 g IV daily x 3 days (3) Accidental fall from bed: As noted above (4) Epilepsy: As noted above. need to continue Onfi, Lamictal, Felbamate, (5) Seizure-like activity: EEG done today, no seizure activity (6) Mild mental retardation: Continue usual medications consult CM to look into SNF PT/OT ordered (7) TBI (traumatic brain injury): As above.. Subjective patient feeling a little better today, no seizure activity discussed with Dr. Crabtree, appreciate her recommendations family looking into SNF for better care attempted to call patient's mother and father, no answer non-formulary medications were found and sent to pharmacy to prevent withdrawal seizures Review of Systems All systems reviewed & are unremarkable except as noted in HPI & below Physical Exam Vital Signs (Past 24 Hours): Last Vital Signs Temp 36.5 C 05/21/18 14:58 Pulse 70 05/21/18 14:58 Resp 18 05/21/18 14:58 BP 130/74 05/21/18 14:58 Pulse Ox 95 05/21/18 14:58 Constitutional: WD/WN, vitals as above Eyes: PERRL, conjunctivae normal, anicteric sclerae ENMT: external ear and nose normal, oropharynx normal Neck: trachea midline, no thyromegaly Respiratory: normal respiratory effort, lungs clear to auscultation Cardiovascular: RRR, no murmur, no edema Gastrointestinal (Abdomen): normal bowel sounds, soft, nontender, no hepatosplenomegaly Musculoskeletal: no cyanosis or clubbing, extremities motor strength 5/5 Skin: no rashes, warm and dry Neurologic: patellar DTR's 2+ bilat, sensation intact and PERRL, EOMI, accommodation nl, no face palsy, no dysarthria Psychiatric: Orientation: alert and oriented x 3 Affect: + depressed affect Cognition: recent memory grossly intact Judgement: + limited judgement Lymphatic: no cervical or axillary lymphadenopathy Results & Data Laboratory Results Laboratory Results - last 24 hr 05/20/18 05/20/18 05/20/18 16:40 16:40 Unknown WBC 5.50 RBC 4.43 L Hgb 14.2 Hct 41.4 L MCV 93.5 MCH 32.1 MCHC 34.3 RDW Std Deviation 46.0 RDW Coeff of Eunice 13.4 Plt Count 139 MPV 8.8 Immature Gran % (Auto) 0.0 Neut % (Auto) 69.0 Lymph % (Auto) 20.4 Boundary % (Auto) 8.9 Eos % (Auto) 1.3 Baso % (Auto) 0.4 Immature Gran # (Auto) 0.00 Neut # (Auto) 3.80 Lymph # (Auto) 1.12 L Boundary # (Auto) 0.49 Eos # (Auto) 0.07 Baso # (Auto) 0.02 PT INR Sodium 143 Potassium 3.8 Chloride 108 H Carbon Dioxide 30 Anion Gap 5.0 BUN 14 Creatinine 0.97 Est Cr Clr Drug Dosing Not Reportable Est GFR ( Amer) 102.9 Est GFR (Non-Af Amer) 88.8 BUN/Creatinine Ratio 14.7 Glucose 140 H Calcium 8.6 Ammonia Urine Color Dark Yellow Urine Appearance Cloudy H Urine pH 6.0 Ur Specific Nunnelly 1.034 H Urine Protein Trace H Urine Glucose (UA) Negative Urine Ketones 1+ H Urine Blood 3+ H Urine Nitrite Negative Urine Bilirubin Negative Urine Urobilinogen Negative Ur Leukocyte Esterase 2+ H Urine WBC (Auto) >30 H Urine RBC (Auto) >30 H U Hyaline Cast (Auto) Not Reportable U Epithel Cells (Auto) 10-20 H Urine Bacteria (Auto) 1+ H Urine Mucus Present H 05/21/18 05/21/18 07:39 10:05 WBC RBC Hgb Hct MCV MCH MCHC RDW Std Deviation RDW Coeff of Eunice Plt Count MPV Immature Gran % (Auto) Neut % (Auto) Lymph % (Auto) Boundary % (Auto) Eos % (Auto) Baso % (Auto) Immature Gran # (Auto) Neut # (Auto) Lymph # (Auto) Boundary # (Auto) Eos # (Auto) Baso # (Auto) PT 11.1 INR 1.1 Sodium Potassium Chloride Carbon Dioxide Anion Gap BUN Creatinine Est Cr Clr Drug Dosing Est GFR ( Amer) Est GFR (Non-Af Amer) BUN/Creatinine Ratio Glucose Calcium Ammonia 26.0 Urine Color Urine Appearance Urine pH Ur Specific Nunnelly Urine Protein Urine Glucose (UA) Urine Ketones Urine Blood Urine Nitrite Urine Bilirubin Urine Urobilinogen Ur Leukocyte Esterase Urine WBC (Auto) Urine RBC (Auto) U Hyaline Cast (Auto) U Epithel Cells (Auto) Urine Bacteria (Auto) Urine Mucus Medications Administered Current Inpatient Medications Acetaminophen (Tylenol) 325 mg PO Q4H PRN PRN Reason: Pain Stop: 06/20/18 00:52 Acetaminophen (Tylenol) 650 mg PO Q4H PRN PRN Reason: Pain or Fever Stop: 06/20/18 00:52 [facility]) [facility] [place]: 06/20/18 08:59 Last Admin: 05/21/18 07:43 Dose: 15 mg Documented by: Buspirone HCl (Buspar) 30 mg PO HS [facility] Stop: 06/20/18 20:59 Carbamide Peroxide (Earwax Removal Soln) 5 drops OT BID PRN PRN Reason: Prophylaxis Stop: 05/25/18 00:52 Enoxaparin Sodium (Lovenox) 40 mg SQ Q24H [facility] Stop: 06/20/18 08:59 Last Admin: 05/21/18 09:36 Dose: 40 mg Documented by: Finasteride (Proscar) 5 mg PO [facility] Stop: 06/20/18 08:59 Last Admin: 05/21/18 07:43 Dose: 5 mg Documented by: Fluoxetine HCl (Prozac) 20 mg PO [facility] Stop: 06/20/18 08:59 Last Admin: 05/21/18 07:43 Dose: 20 mg Documented by: Fluticasone Propionate (Flonase) 2 sprays REINALDO [facility] Stop: 06/20/18 08:59 Last Admin: 05/21/18 07:42 Dose: 2 sprays Documented by: Gabapentin (Neurontin) 100 mg PO TID [facility] Stop: 06/20/18 08:59 Last Admin: 05/21/18 13:36 Dose: 100 mg Documented by: Ceftriaxone Sodium 1,000 mg/ (Dextrose) 60 mls @ 100 mls/hr IV Q24H [facility] Stop: 05/29/18 20:35 Lacosamide (Vimpat) 200 mg PO Q12H [facility] Stop: 06/20/18 08:59 Last Admin: 05/21/18 08:05 Dose: 200 mg Documented by: Miscellaneous (Order Awaiting Action) 1 ea N/A QS [facility] Stop: 06/20/18 07:59 Last Admin: 05/21/18 06:55 Dose: Not Given Documented by: Miscellaneous (Order Awaiting Action) 1 ea N/A [facility] Stop: 06/20/18 07:59 Last Admin: 05/21/18 06:54 Dose: Not Given Documented by: Miscellaneous (Order Awaiting Action) 1 ea N/A [facility] Stop: 06/20/18 07:59 Last Admin: 05/21/18 06:54 Dose: Not Given Documented by: Miscellaneous (Order Awaiting Action) 1 ea N/A [facility] Stop: 06/20/18 07:59 Last Admin: 05/21/18 06:54 Dose: Not Given Documented by: Miscellaneous (Order Awaiting Action) 1 ea N/A [facility] Stop: 06/20/18 07:59 Last Admin: 05/21/18 06:55 Dose: Not Given Documented by: Miscellaneous (Order Awaiting Action) 1 ea N/A [facility] Stop: 06/20/18 07:59 Last Admin: 05/21/18 06:55 Dose: Not Given Documented by: Miscellaneous (Order Awaiting Action) 1 ea N/A [facility] Stop: 06/20/18 07:59 Last Admin: 05/21/18 06:54 Dose: Not Given Documented by: Multivitamins/Minerals (Multivitamin W/ Minerals Tab) 1 tab PO QAM [facility] Stop: 06/20/18 08:59 Last Admin: 05/21/18 07:41 Dose: 1 tab Documented by: Neomycin/Polymyxin/Bacitracin (Neosporin Oint) 1 appln TOP BID PRN PRN Reason: Wound Care Ondansetron HCl (Zofran) 8 mg PO Q8H PRN PRN Reason: Nausea And Vomiting Stop: 06/20/18 00:52 Pantoprazole Sodium (Protonix) 40 mg PO QAM [facility] Stop: 06/20/18 08:59 Last Admin: 05/21/18 07:42 Dose: 40 mg Documented by: Polyethylene Glycol (Miralax Powder Packet) 17 gm PO DAILY PRN PRN Reason: Constipation Stop: 06/20/18 00:52 Propranolol HCl (Inderal La) 80 mg PO Q12H [facility] Stop: 06/20/18 08:59 Last Admin: 05/21/18 07:42 Dose: 80 mg Documented by: Senna/Docusate Sodium (Senokot S) 1 tab PO BID [facility] Stop: 06/20/18 08:59 Last Admin: 05/21/18 07:43 Dose: 1 tab Documented by: Sodium Chloride (Delta Nasal) 1 sprays REINALDO Q3H PRN PRN Reason: Dryness Stop: 06/20/18 00:52 Tamsulosin HCl (Flomax) 0.4 mg PO Q12H [facility] Stop: 06/20/18 08:59 Last Admin: 05/21/18 07:42 Dose: 0.4 mg Documented by: (1) Accidental fall from bed Encounter type: initial encounter Qualified Code(s): W06.XXXA - Fall from bed, initial encounter (2) UTI (urinary tract infection) Hematuria presence: with hematuria Urinary tract infection type: site unspecified Qualified Code(s): N39.0 - Urinary tract infection, site not specified; R31.9 - Hematuria, unspecified (3) Altered mental status Altered mental status type: unspecified Qualified Code(s): R41.82 - Altered mental status, unspecified
[2018-05-21] MEDS: LAMOTRIGINE 25 MG PO SCH (20:06)
[2018-05-21] MEDS: LAMOTRIGINE 50 MG PO SCH (20:06)
[2018-05-21] MEDS: LAMOTRIGINE 100 MG PO SCH (20:07)
[2018-05-21] MEDS: FELBAMATE PO SCH (20:08)
[2018-05-21] MEDS: LAMOTRIGINE 200 MG PO SCH (20:08)
[2018-05-21] MEDS: cefTRIAXone SODIUM 1,000 MG in DEXTROSE 5% 50 ML IV SCH (20:16)
[2018-05-21] MEDS: CLOBAZAM PO SCH (20:51)
[2018-05-22] MEDS: LACOSAMIDE 50 MG TABLET PO SCH ×2 (07:46→21:18)
[2018-05-22] MEDS: ENOXAPARIN INJ 40 MG/0.4 ML SYR SQ SCH (07:46)
[2018-05-22] MEDS: PROPRANOLOL HCL LA 80 MG CAPCR PO SCH ×2 (07:47→20:14)
[2018-05-22] MEDS: TAMSULOSIN HCL 0.4 MG CAP PO SCH ×2 (07:47→20:14)
[2018-05-22] MEDS: DOCUSATE SODIUM/SENNA 50/8.6MG TAB PO SCH ×2 (07:47→20:14)
[2018-05-22] MEDS: FINASTERIDE 5 MG TAB PO SCH (07:47)
[2018-05-22] MEDS: PANTOprazole 40 MG TAB PO SCH (07:47)
[2018-05-22] MEDS: CEROVITE ADV FORMULA TAB PO SCH (07:47)
[2018-05-22] MEDS: BusPIRone 15 MG TAB PO SCH ×2 (07:48→20:15)
[2018-05-22] MEDS: FLUOXETINE HCL 20 MG CAP PO SCH (07:48)
[2018-05-22] MEDS: GABAPENTIN 100 MG CAP PO SCH ×3 (07:48→20:14)
[2018-05-22] MEDS: FLUTICASONE PROPIONATE NA SPR 16 GM BTL NAE SCH (07:48)
[2018-05-22] MEDS: LAMOTRIGINE 25 MG PO SCH ×2 (07:49→20:16)
[2018-05-22] MEDS: LAMOTRIGINE 50 MG PO SCH ×2 (07:50→20:16)
[2018-05-22] MEDS: LAMOTRIGINE 100 MG PO SCH ×2 (07:51→20:17)
[2018-05-22] MEDS: LAMOTRIGINE 200 MG PO SCH ×2 (07:51→20:17)
[2018-05-22] MEDS: PRESERVISION AREDS PO SCH (07:52)
[2018-05-22] MEDS: FELBAMATE PO SCH ×2 (07:52→20:18)
[2018-05-22] MEDS: CLOBAZAM PO SCH ×2 (08:06→21:18)
--- NOTE | 2018-05-22 16:28 | Hospitalist Progress Note ---
Date of Service May 22, 2018 Assessment & Plan (1) Altered mental status: Altered mental status/epilepsy/seizure like activity/accidental fall from bed/mild mental retardation-- Differential primarily includes: Seizure activity with/without postictal state, postconcussive syndrome status post mechanical fall, encephalopathy secondary to UTI, other cardiac, neurologic, psychiatric or other process. mental status appears to be at baseline, answering simple questions, he is alert appreciate Neurology recommendations for seizures continue to treat UTI (2) UTI (urinary tract infection): no growth on urine culture treat with ceftriaxone 1 g IV daily x 3 days stop tomorrow (3) Accidental fall from bed: As noted above (4) Epilepsy: As noted above. need to continue Onfi, Lamictal, Felbamate, no further seizures while admitted (5) Seizure-like activity: EEG done 05/21, no seizure activity (6) Mild mental retardation: Continue usual medications consult CM to look into SNF PT/OT ordered (7) TBI (traumatic brain injury): As above.. Subjective patient sitting up in chair, no complaints denies pain needed help drinking his iced tea, has spilled on the floor discussed with CM, she contacted his senior care, they cannot care for his needs plan to go to SNF, looking into [facility] will likely need to target given his mental retardation patient fine with this plan, really does not have any other options Review of Systems All systems reviewed & are unremarkable except as noted in HPI & below Physical Exam Vital Signs (Past 24 Hours): Last Vital Signs Temp 36.8 C 05/22/18 12:00 Pulse 60 05/22/18 12:00 Resp 18 05/22/18 12:00 BP 123/73 05/22/18 12:00 Pulse Ox 90 05/22/18 12:00 Constitutional: WD/WN, vitals as above Eyes: PERRL, conjunctivae normal, anicteric sclerae ENMT: external ear and nose normal, oropharynx normal Neck: trachea midline, no thyromegaly Respiratory: normal respiratory effort, lungs clear to auscultation Cardiovascular: RRR, no murmur, no edema Gastrointestinal (Abdomen): normal bowel sounds, soft, nontender, no hepatosplenomegaly Musculoskeletal: no cyanosis or clubbing, extremities motor strength 5/5 Skin: no rashes, warm and dry Neurologic: patellar DTR's 2+ bilat, sensation intact and PERRL, EOMI, accommodation nl, no face palsy, no dysarthria Psychiatric: Orientation: alert and oriented x 3 Affect: + depressed affect Cognition: recent memory grossly intact Judgement: + limited judgement Lymphatic: no cervical or axillary lymphadenopathy Results & Data Medications Administered Current Inpatient Medications Acetaminophen (Tylenol) 325 mg PO Q4H PRN PRN Reason: Pain Stop: 06/20/18 00:52 Acetaminophen (Tylenol) 650 mg PO Q4H PRN PRN Reason: Pain or Fever Stop: 06/20/18 00:52 Buspirone HCl (Buspar) 15 mg PO QAM [facility] Stop: 06/20/18 08:59 Last Admin: 05/22/18 07:48 Dose: 15 mg Documented by: Buspirone HCl (Buspar) 30 mg PO HS [facility] Stop: 06/20/18 20:59 Last Admin: 05/21/18 20:13 Dose: 30 mg Documented by: Carbamide Peroxide (Earwax Removal Soln) 5 drops OT BID PRN PRN Reason: Prophylaxis Stop: 05/25/18 00:52 Enoxaparin Sodium (Lovenox) 40 mg SQ Q24H [facility] Stop: 06/20/18 08:59 Last Admin: 05/22/18 07:46 Dose: 40 mg Documented by: Finasteride (Proscar) 5 mg PO QAM [facility] Stop: 06/20/18 08:59 Last Admin: 05/22/18 07:47 Dose: 5 mg Documented by: Fluoxetine HCl (Prozac) 20 mg PO QAM [facility] Stop: 06/20/18 08:59 Last Admin: 05/22/18 07:48 Dose: 20 mg Documented by: Fluticasone Propionate (Flonase) 2 sprays REINALDO QAM [facility] Stop: 06/20/18 08:59 Last Admin: 05/22/18 07:48 Dose: 2 sprays Documented by: Gabapentin (Neurontin) 100 mg PO TID [facility] Stop: 06/20/18 08:59 Last Admin: 05/22/18 13:54 Dose: 100 mg Documented by: Ceftriaxone Sodium 1,000 mg/ (Dextrose) 60 mls @ 100 mls/hr IV Q24H [facility] Stop: 05/29/18 20:35 Last Infusion: 05/21/18 21:13 Dose: Infused Documented by: Lacosamide (Vimpat) 200 mg PO Q12H [facility] Stop: 06/20/18 08:59 Last Admin: 05/22/18 07:46 Dose: 200 mg Documented by: Multivitamins/Minerals (Multivitamin W/ Minerals Tab) 1 tab PO QAM [facility] Stop: 06/20/18 08:59 Last Admin: 05/22/18 07:47 Dose: 1 tab Documented by: Neomycin/Polymyxin/Bacitracin (Neosporin Oint) 1 appln TOP BID PRN PRN Reason: Wound Care Felbamate - Non- Formulary Patient's Own Med 1 ea PO Q12 [facility]; Protocol Stop: 06/20/18 20:59 Last Admin: 05/22/18 07:52 Dose: 600 mg Documented by: Preservision Areds - Non-Formulary Patient's Own Med 2 ea PO DAILY [facility] Stop: 06/21/18 08:59 Last Admin: 05/22/18 07:52 Dose: 2 cap Documented by: Lamotrigine Er 25 Mg - Non-Formulary Patient's Own Med 1 ea PO Q12 [facility]; Protocol Stop: 06/20/18 20:59 Last Admin: 05/22/18 07:49 Dose: 25 mg Documented by: Lamotrigine Er 50 Mg - Non-Formulary Patient's Own Med 1 ea PO Q12 [facility]; Protocol Stop: 06/20/18 20:59 Last Admin: 05/22/18 07:50 Dose: 50 mg Documented by: Lamotrigine Er 100 Mg - Non-Formulary Patient's Own Med 1 ea PO Q12 [facility]; Protocol Stop: 06/20/18 20:59 Last Admin: 05/22/18 07:51 Dose: 100 mg Documented by: Lamotrigine Er 200 Mg - Non-Formulary Patient's Own Med 1 ea PO Q12 [facility]; Protocol Stop: 06/20/18 20:59 Last Admin: 05/22/18 07:51 Dose: 200 mg Documented by: Clobazam - Non- Formulary Patient's Own Med 0.5 ea PO BID [facility]; Protocol Stop: 06/20/18 20:59 Last Admin: 05/22/18 08:06 Dose: 0.5 mg Documented by: Ondansetron HCl (Zofran) 8 mg PO Q8H PRN PRN Reason: Nausea And Vomiting Stop: 06/20/18 00:52 Pantoprazole Sodium (Protonix) 40 mg PO QAM [facility] Stop: 06/20/18 08:59 Last Admin: 05/22/18 07:47 Dose: 40 mg Documented by: Polyethylene Glycol (Miralax Powder Packet) 17 gm PO DAILY PRN PRN Reason: Constipation Stop: 06/20/18 00:52 Propranolol HCl (Inderal La) 80 mg PO Q12H [facility] Stop: 06/20/18 08:59 Last Admin: 05/22/18 07:47 Dose: 80 mg Documented by: Senna/Docusate Sodium (Senokot S) 1 tab PO BID [facility] Stop: 06/20/18 08:59 Last Admin: 05/22/18 07:47 Dose: 1 tab Documented by: Sodium Chloride ([place] Nasal) 1 sprays REINALDO Q3H PRN PRN Reason: Dryness Stop: 06/20/18 00:52 Tamsulosin HCl (Flomax) 0.4 mg PO Q12H [facility] Stop: 06/20/18 08:59 Last Admin: 05/22/18 07:47 Dose: 0.4 mg Documented by: (1) Accidental fall from bed Encounter type: initial encounter Qualified Code(s): W06.XXXA - Fall from bed, initial encounter (2) UTI (urinary tract infection) Hematuria presence: with hematuria Urinary tract infection type: site unspecified Qualified Code(s): N39.0 - Urinary tract infection, site not specified; R31.9 - Hematuria, unspecified (3) Altered mental status Altered mental status type: unspecified Qualified Code(s): R41.82 - Altered mental status, unspecified
[2018-05-22] MEDS: cefTRIAXone SODIUM 1,000 MG in DEXTROSE 5% 50 ML IV SCH (19:48)
[2018-05-23] MEDS: FINASTERIDE 5 MG TAB PO SCH (08:21)
[2018-05-23] MEDS: PANTOprazole 40 MG TAB PO SCH (08:21)
[2018-05-23] MEDS: FLUTICASONE PROPIONATE NA SPR 16 GM BTL NAE SCH (08:21)
[2018-05-23] MEDS: PROPRANOLOL HCL LA 80 MG CAPCR PO SCH ×2 (08:21→20:28)
[2018-05-23] MEDS: ENOXAPARIN INJ 40 MG/0.4 ML SYR SQ SCH (08:22)
[2018-05-23] MEDS: FLUOXETINE HCL 20 MG CAP PO SCH (08:22)
[2018-05-23] MEDS: CEROVITE ADV FORMULA TAB PO SCH (08:22)
[2018-05-23] MEDS: DOCUSATE SODIUM/SENNA 50/8.6MG TAB PO SCH ×2 (08:22→20:33)
[2018-05-23] MEDS: TAMSULOSIN HCL 0.4 MG CAP PO SCH ×2 (08:22→20:27)
[2018-05-23] MEDS: BusPIRone 15 MG TAB PO SCH ×2 (08:22→20:27)
[2018-05-23] MEDS: GABAPENTIN 100 MG CAP PO SCH ×3 (08:22→20:28)
[2018-05-23] MEDS: LAMOTRIGINE 50 MG PO SCH ×2 (08:23→20:32)
[2018-05-23] MEDS: LAMOTRIGINE 100 MG PO SCH ×2 (08:24→20:31)
[2018-05-23] MEDS: LAMOTRIGINE 25 MG PO SCH ×2 (08:24→20:32)
[2018-05-23] MEDS: LAMOTRIGINE 200 MG PO SCH ×2 (08:24→20:31)
[2018-05-23] MEDS: PRESERVISION AREDS PO SCH (08:25)
[2018-05-23] MEDS: FELBAMATE PO SCH ×2 (08:25→20:30)
[2018-05-23] MEDS: LACOSAMIDE 50 MG TABLET PO SCH ×2 (09:18→20:51)
[2018-05-23] MEDS: CLOBAZAM PO SCH ×2 (10:19→20:50)
--- NOTE | 2018-05-23 15:48 | Hospitalist Progress Note ---
Date of Service May 23, 2018 Assessment & Plan (1) Altered mental status: Metabolic encephalopathy, likely post ictal no evidence that this was caused by UTI, no growth on urine culture Altered mental status/epilepsy/seizure like activity/accidental fall from bed/mild mental retardation-- mental status appears to be at baseline, answering simple questions, he is alert appreciate Neurology recommendations for seizures (2) UTI (urinary tract infection): no growth on urine culture stop Ceftriaxone again, there is now no evidence for UTI, did not cause his encephalopathy (3) Accidental fall from bed: As noted above (4) Epilepsy: As noted above. need to continue Onfi, Lamictal, Felbamate, no further seizures while admitted (5) Seizure-like activity: EEG done 05/21, no seizure activity (6) Mild mental retardation: Continue usual medications consult CM to look into SNF PT/OT ordered (7) TBI (traumatic brain injury): As above.. long discussion with patient and his father and case management plan for rehab if they accept him some issues with SNF taking him due to inappropriate behavior in the past but that was long ago Subjective patient talking more today wants to go to rehab long talk with patient's father about [facility] he said they are under investigation, poor care there discussed that they won't take him back, that he will need SNF Review of Systems All systems reviewed & are unremarkable except as noted in HPI & below Physical Exam Vital Signs (Past 24 Hours): Last Vital Signs Temp 36.8 C 05/23/18 12:33 Pulse 86 05/23/18 12:33 Resp 18 05/23/18 12:33 BP 103/57 L 05/23/18 12:33 Pulse Ox 92 05/23/18 12:33 Constitutional: WD/WN, vitals as above Eyes: PERRL, conjunctivae normal, anicteric sclerae ENMT: external ear and nose normal, oropharynx normal Neck: trachea midline, no thyromegaly Respiratory: normal respiratory effort, lungs clear to auscultation Cardiovascular: RRR, no murmur, no edema Gastrointestinal (Abdomen): normal bowel sounds, soft, nontender, no hepatosplenomegaly Musculoskeletal: no cyanosis or clubbing, extremities motor strength 5/5 Skin: no rashes, warm and dry Neurologic: patellar DTR's 2+ bilat, sensation intact and PERRL, EOMI, accommodation nl, no face palsy, no dysarthria Motor/Sensory: + tremor (all four extremities) Psychiatric: Orientation: alert and oriented x 3 Affect: + depressed affect Cognition: recent memory grossly intact Judgement: + limited judgement Lymphatic: no cervical or axillary lymphadenopathy Results & Data Laboratory Results Microbiology 05/20/18 Unknown Urine,Straight Cath Urine Culture - Final No growth - less than 1,000 colonies/mL. Medications Administered Current Inpatient Medications Acetaminophen (Tylenol) 325 mg PO Q4H PRN PRN Reason: Pain Stop: 06/20/18 00:52 Acetaminophen (Tylenol) 650 mg PO Q4H PRN PRN Reason: Pain or Fever Stop: 06/20/18 00:52 Last Admin: 05/23/18 01:56 Dose: 650 mg Documented by: Buspirone HCl (Buspar) 15 mg PO QAM [facility] Stop: 06/20/18 08:59 Last Admin: 05/23/18 08:22 Dose: 15 mg Documented by: Buspirone HCl (Buspar) 30 mg PO HS [facility] Stop: 06/20/18 20:59 Last Admin: 05/23/18 20:27 Dose: 30 mg Documented by: Carbamide Peroxide (Earwax Removal Soln) 5 drops OT BID PRN PRN Reason: Prophylaxis Stop: 05/25/18 00:52 Enoxaparin Sodium (Lovenox) 40 mg SQ Q24H [facility] Stop: 06/20/18 08:59 Last Admin: 05/23/18 08:22 Dose: 40 mg Documented by: [facility]asteride (Pro[facility]) [facility] [place]: 06/20/18 08:59 Last Admin: 05/23/18 08:21 Dose: 5 mg Documented by: Fluoxetine HCl (Prozac) 20 [facility] [place]: 06/20/18 08:59 Last Admin: 05/23/18 08:22 Dose: 20 mg Documented by: Fluticasone Propionate (Flonase) 2 sprays [facility] Stop: 06/20/18 08:59 Last Admin: 05/23/18 08:21 Dose: 2 sprays Documented by: Gabapentin (Neurontin) 100 mg PO TID [facility] Stop: 06/20/18 08:59 Last Admin: 05/23/18 20:28 Dose: 100 mg Documented by: Ceftriaxone Sodium 1,000 mg/ (Dextrose) 60 mls @ 100 mls/hr IV Q24H [facility] Stop: 05/29/18 20:35 Last Infusion: 05/23/18 20:57 Dose: Infused Documented by: Lacosamide (Vimpat) 200 mg PO Q12H [facility] Stop: 06/20/18 08:59 Last Admin: 05/23/18 20:51 Dose: 200 mg Documented by: Multivitamins/Minerals (Multivitamin W/ Minerals Tab) 1 tab PO QAM [facility] Stop: 06/20/18 08:59 Last Admin: 05/23/18 08:22 Dose: 1 tab Documented by: Neomycin/Polymyxin/Bacitracin (Neosporin Oint) 1 appln TOP BID PRN PRN Reason: Wound Care Felbamate - Non- Formulary Patient's Own Med 1 ea PO Q12 [facility]; Protocol Stop: 06/20/18 20:59 Last Admin: 05/23/18 20:30 Dose: 600 mg Documented by: Preservision Areds - Non-Formulary Patient's Own Med 2 ea PO DAILY [facility] Stop: 06/21/18 08:59 Last Admin: 05/23/18 08:25 Dose: 2 cap Documented by: Lamotrigine Er 25 Mg - Non-Formulary Patient's Own Med 1 ea PO Q12 [facility]; Protocol Stop: 06/20/18 20:59 Last Admin: 05/23/18 20:32 Dose: 25 mg Documented by: Lamotrigine Er 50 Mg - Non-Formulary Patient's Own Med 1 ea PO Q12 [facility]; Protocol Stop: 06/20/18 20:59 Last Admin: 05/23/18 20:32 Dose: 50 mg Documented by: Lamotrigine Er 100 Mg - Non-Formulary Patient's Own Med 1 ea PO Q12 [facility]; Protocol Stop: 06/20/18 20:59 Last Admin: 05/23/18 20:31 Dose: 100 mg Documented by: Lamotrigine Er 200 Mg - Non-Formulary Patient's Own Med 1 ea PO Q12 [facility]; Protocol Stop: 06/20/18 20:59 Last Admin: 05/23/18 20:31 Dose: 200 mg Documented by: Clobazam - Non- Formulary Patient's Own Med 0.5 ea PO BID [facility]; Protocol Stop: 06/20/18 20:59 Last Admin: 05/23/18 20:50 Dose: 5 mg Documented by: Ondansetron HCl (Zofran) 8 mg PO Q8H PRN PRN Reason: Nausea And Vomiting Stop: 06/20/18 00:52 Pantoprazole Sodium (Protonix) 40 mg PO QAM [facility] Stop: 06/20/18 08:59 Last Admin: 05/23/18 08:21 Dose: 40 mg Documented by: Polyethylene Glycol (Miralax Powder Packet) 17 gm PO DAILY PRN PRN Reason: Constipation Stop: 06/20/18 00:52 Propranolol HCl (Inderal La) 80 mg PO Q12H [facility] Stop: 06/20/18 08:59 Last Admin: 05/23/18 20:28 Dose: 80 mg Documented by: Senna/Docusate Sodium (Senokot S) 1 tab PO BID [facility] Stop: 06/20/18 08:59 Last Admin: 05/23/18 20:33 Dose: 1 tab Documented by: Sodium Chloride ([place] Nasal) 1 sprays [facility] Q3H PRN PRN Reason: Dryness Stop: 06/20/18 00:52 Tamsulosin HCl (Flomax) 0.4 mg PO Q12H [facility] Stop: 06/20/18 08:59 Last Admin: 05/23/18 20:27 Dose: 0.4 mg Documented by: (1) Accidental fall from bed Encounter type: initial encounter Qualified Code(s): W06.XXXA - Fall from bed, initial encounter (2) UTI (urinary tract infection) Hematuria presence: with hematuria Urinary tract infection type: site unspecified Qualified Code(s): N39.0 - Urinary tract infection, site not specified; R31.9 - Hematuria, unspecified (3) Altered mental status Altered mental status type: unspecified Qualified Code(s): R41.82 - Altered mental status, unspecified
[2018-05-23] MEDS: cefTRIAXone SODIUM 1,000 MG in DEXTROSE 5% 50 ML IV SCH (20:21)
[2018-05-24] MEDS: DOCUSATE SODIUM/SENNA 50/8.6MG TAB PO SCH ×2 (08:42→21:33)
[2018-05-24] MEDS: FINASTERIDE 5 MG TAB PO SCH (08:43)
[2018-05-24] MEDS: FLUOXETINE HCL 20 MG CAP PO SCH (08:43)
[2018-05-24] MEDS: PROPRANOLOL HCL LA 80 MG CAPCR PO SCH ×2 (08:43→21:34)
[2018-05-24] MEDS: PANTOprazole 40 MG TAB PO SCH (08:43)
[2018-05-24] MEDS: CEROVITE ADV FORMULA TAB PO SCH (08:43)
[2018-05-24] MEDS: TAMSULOSIN HCL 0.4 MG CAP PO SCH ×2 (08:45→21:35)
[2018-05-24] MEDS: GABAPENTIN 100 MG CAP PO SCH ×3 (08:46→21:33)
[2018-05-24] MEDS: BusPIRone 15 MG TAB PO SCH ×2 (08:46→21:35)
[2018-05-24] MEDS: ENOXAPARIN INJ 40 MG/0.4 ML SYR SQ SCH (08:46)
[2018-05-24] MEDS: FLUTICASONE PROPIONATE NA SPR 16 GM BTL NAE SCH (08:48)
[2018-05-24] MEDS: PRESERVISION AREDS PO SCH (08:49)
[2018-05-24] MEDS: FELBAMATE PO SCH ×2 (08:50→21:37)
[2018-05-24] MEDS: LAMOTRIGINE 200 MG PO SCH ×2 (08:50→21:42)
[2018-05-24] MEDS: LAMOTRIGINE 50 MG PO SCH ×2 (08:51→21:41)
[2018-05-24] MEDS: LAMOTRIGINE 100 MG PO SCH ×2 (08:51→21:40)
[2018-05-24] MEDS: LAMOTRIGINE 25 MG PO SCH ×2 (08:52→21:38)
[2018-05-24] MEDS: CLOBAZAM PO SCH ×2 (09:38→22:00)
[2018-05-24] MEDS: LACOSAMIDE 50 MG TABLET PO SCH ×2 (09:38→22:01)
--- NOTE | 2018-05-24 14:41 | Hospitalist Progress Note ---
Date of Service May 24, 2018 Assessment & Plan (1) Altered mental status: Metabolic encephalopathy, likely post ictal no evidence that this was caused by UTI, no growth on urine culture Altered mental status/epilepsy/seizure like activity/accidental fall from bed/mild mental retardation-- mental status appears to be at baseline, answering simple questions, he is alert appreciate Neurology recommendations for seizures AMS is resolved (2) UTI (urinary tract infection): no growth on urine culture stop Ceftriaxone again, there is now no evidence for UTI, did not cause his encephalopathy (3) Accidental fall from bed: As noted above (4) Epilepsy: As noted above. need to continue Onfi, Lamictal, Felbamate, no further seizures while admitted (5) Seizure-like activity: EEG done 05/21, no seizure activity (6) Mild mental retardation: Continue usual medications consult CM to look into SNF PT/OT ordered (7) TBI (traumatic brain injury): As above.. difficult disposition cannot return to [facility], they lack the staff to care for his needs [facility] without beds and reluctant to take him [facility] will not take without a specific plan in place once he is done with rehab will be here over the weekend, may end up being [facility] process Subjective no major changes with patient vitals stable, no labs checked d/w case management, rehab will not accept patient without a definitive plan [facility] has no beds and 9 people on wait list ahead of patient will be here at least over the weekend to work on plan cannot go back to [facility] Review of Systems All systems reviewed & are unremarkable except as noted in HPI & below Physical Exam Vital Signs (Past 24 Hours): Last Vital Signs Temp 36.8 C 05/24/18 11:45 Pulse 51 L 05/24/18 11:45 Resp 16 05/24/18 11:45 BP 107/69 05/24/18 11:45 Pulse Ox 95 05/24/18 11:45 Constitutional: WD/WN, vitals as above Eyes: PERRL, conjunctivae normal, anicteric sclerae ENMT: external ear and nose normal, oropharynx normal Neck: trachea midline, no thyromegaly Respiratory: normal respiratory effort, lungs clear to auscultation Cardiovascular: RRR, no murmur, no edema Gastrointestinal (Abdomen): normal bowel sounds, soft, nontender, no hepatosplenomegaly Musculoskeletal: no cyanosis or clubbing, extremities motor strength 5/5 Skin: no rashes, warm and dry Neurologic: patellar DTR's 2+ bilat, sensation intact and PERRL, EOMI, accommodation nl, no face palsy, no dysarthria Motor/Sensory: + tremor (all four extremities) Psychiatric: Orientation: alert and oriented x 3 Affect: + depressed affect Cognition: recent memory grossly intact Judgement: + limited judgement Lymphatic: no cervical or axillary lymphadenopathy Results & Data Medications Administered Current Inpatient Medications Acetaminophen (Tylenol) 325 mg PO Q4H PRN PRN Reason: Pain Stop: 06/20/18 00:52 Acetaminophen (Tylenol) 650 mg PO Q4H PRN PRN Reason: Pain or Fever Stop: 06/20/18 00:52 Last Admin: 05/23/18 01:56 Dose: 650 mg Documented by: Buspirone HCl (Buspar) 15 mg PO QAM [facility] Stop: 06/20/18 08:59 Last Admin: 05/24/18 08:46 Dose: 15 mg Documented by: Buspirone HCl (Buspar) 30 mg PO HS [facility] Stop: 06/20/18 20:59 Last Admin: 05/23/18 20:27 Dose: 30 mg Documented by: Carbamide Peroxide (Earwax Removal Soln) 5 drops OT BID PRN PRN Reason: Prophylaxis Stop: 05/25/18 00:52 Enoxaparin Sodium (Lovenox) 40 mg SQ Q24H [facility] Stop: 06/20/18 08:59 Last Admin: 05/24/18 08:46 Dose: 40 mg Documented by: Finasteride (Proscar) [facility] [place] Stop: 06/20/18 08:59 Last Admin: 05/24/18 08:43 Dose: 5 mg Documented by: Fluoxetine HCl (Prozac) 20 mg PO QAM [facility] Stop: 06/20/18 08:59 Last Admin: 05/24/18 08:43 Dose: 20 mg Documented by: Fluticasone Propionate (Flonase) 2 sprays [facility] [place] Stop: 06/20/18 08:59 Last Admin: 05/24/18 08:48 Dose: 2 sprays Documented by: Gabapentin (Neurontin) 100 mg PO TID [facility] Stop: 06/20/18 08:59 Last Admin: 05/24/18 14:25 Dose: 100 mg Documented by: Lacosamide (Vimpat) 200 mg PO Q12H [facility] Stop: 06/20/18 08:59 Last Admin: 05/24/18 09:38 Dose: 200 mg Documented by: Multivitamins/Minerals (Multivitamin W/ Minerals Tab) 1 tab PO QAM [facility] Stop: 06/20/18 08:59 Last Admin: 05/24/18 08:43 Dose: 1 tab Documented by: Neomycin/Polymyxin/Bacitracin (Neosporin Oint) 1 appln TOP BID PRN PRN Reason: Wound Care Felbamate - Non- Formulary Patient's Own Med 1 ea PO Q12 [facility]; Protocol Stop: 06/20/18 20:59 Last Admin: 05/24/18 08:50 Dose: 600 mg Documented by: Preservision Areds - Non-Formulary Patient's Own Med 2 ea PO DAILY [facility] Stop: 06/21/18 08:59 Last Admin: 05/24/18 08:49 Dose: 2 cap Documented by: Lamotrigine Er 25 Mg - Non-Formulary Patient's Own Med 1 ea PO Q12 [facility]; Protocol Stop: 06/20/18 20:59 Last Admin: 05/24/18 08:52 Dose: 25 mg Documented by: Lamotrigine Er 50 Mg - Non-Formulary Patient's Own Med 1 ea PO Q12 [facility]; Protocol Stop: 06/20/18 20:59 Last Admin: 05/24/18 08:51 Dose: 50 mg Documented by: Lamotrigine Er 100 Mg - Non-Formulary Patient's Own Med 1 ea PO Q12 [facility]; Protocol Stop: 06/20/18 20:59 Last Admin: 05/24/18 08:51 Dose: 100 mg Documented by: Lamotrigine Er 200 Mg - Non-Formulary Patient's Own Med 1 ea PO Q12 [facility]; Protocol Stop: 06/20/18 20:59 Last Admin: 05/24/18 08:50 Dose: 200 mg Documented by: Clobazam - Non- Formulary Patient's Own Med 0.5 ea PO BID [facility]; Protocol Stop: 06/20/18 20:59 Last Admin: 05/24/18 09:38 Dose: 5 mg Documented by: Ondansetron HCl (Zofran) 8 mg PO Q8H PRN PRN Reason: Nausea And Vomiting Stop: 06/20/18 00:52 Pantoprazole Sodium (Protonix) 40 mg PO QAM [facility] Stop: 06/20/18 08:59 Last Admin: 05/24/18 08:43 Dose: 40 mg Documented by: Polyethylene Glycol (Miralax Powder Packet) 17 gm PO DAILY PRN PRN Reason: Constipation Stop: 06/20/18 00:52 Propranolol HCl (Inderal La) 80 mg PO Q12H [facility] Stop: 06/20/18 08:59 Last Admin: 05/24/18 08:43 Dose: 80 mg Documented by: Senna/Docusate Sodium (Senokot S) 1 tab PO BID [facility] Stop: 06/20/18 08:59 Last Admin: 05/24/18 08:42 Dose: 1 tab Documented by: Sodium Chloride ([place] Nasal) 1 sprays [facility] Q3H PRN PRN Reason: Dryness Stop: 06/20/18 00:52 Tamsulosin HCl (Flomax) 0.4 mg PO Q12H [facility] Stop: 06/20/18 08:59 Last Admin: 05/24/18 08:45 Dose: 0.4 mg Documented by: (1) Accidental fall from bed Encounter type: initial encounter Qualified Code(s): W06.XXXA - Fall from bed, initial encounter (2) UTI (urinary tract infection) Hematuria presence: with hematuria Urinary tract infection type: site unspecified Qualified Code(s): N39.0 - Urinary tract infection, site not specified; R31.9 - Hematuria, unspecified (3) Altered mental status Altered mental status type: unspecified Qualified Code(s): R41.82 - Altered mental status, unspecified
[2018-05-24 22:17] LABS: Lamictal(Lamotrigine) 12.3 mcg/mL (4.0-18.0)
[2018-05-25] MEDS: CLOBAZAM PO SCH ×2 (08:33→20:49)
[2018-05-25] MEDS: LACOSAMIDE 50 MG TABLET PO SCH ×2 (08:33→20:48)
[2018-05-25] MEDS: FLUTICASONE PROPIONATE NA SPR 16 GM BTL NAE SCH (08:33)
[2018-05-25] MEDS: ENOXAPARIN INJ 40 MG/0.4 ML SYR SQ SCH (08:34)
[2018-05-25] MEDS: FELBAMATE PO SCH ×2 (08:35→20:47)
[2018-05-25] MEDS: GABAPENTIN 100 MG CAP PO SCH ×3 (08:36→20:41)
[2018-05-25] MEDS: PANTOprazole 40 MG TAB PO SCH (08:37)
[2018-05-25] MEDS: BusPIRone 15 MG TAB PO SCH ×2 (08:37→20:42)
[2018-05-25] MEDS: FLUOXETINE HCL 20 MG CAP PO SCH (08:37)
[2018-05-25] MEDS: FINASTERIDE 5 MG TAB PO SCH (08:38)
[2018-05-25] MEDS: CEROVITE ADV FORMULA TAB PO SCH (08:38)
[2018-05-25] MEDS: DOCUSATE SODIUM/SENNA 50/8.6MG TAB PO SCH ×2 (08:39→20:41)
[2018-05-25] MEDS: TAMSULOSIN HCL 0.4 MG CAP PO SCH ×2 (08:39→20:40)
[2018-05-25] MEDS: LAMOTRIGINE 25 MG PO SCH ×2 (08:40→20:47)
[2018-05-25] MEDS: LAMOTRIGINE 50 MG PO SCH ×2 (08:42→20:45)
[2018-05-25] MEDS: LAMOTRIGINE 100 MG PO SCH ×2 (08:42→20:46)
[2018-05-25] MEDS: PRESERVISION AREDS PO SCH (08:43)
[2018-05-25] MEDS: LAMOTRIGINE 200 MG PO SCH ×2 (08:43→20:44)
[2018-05-25] MEDS: PROPRANOLOL HCL LA 80 MG CAPCR PO SCH ×2 (08:49→20:42)
--- NOTE | 2018-05-25 15:23 | Hospitalist Progress Note ---
Date of Service May 25, 2018 Assessment & Plan (1) Altered mental status: Metabolic encephalopathy, likely post ictal no evidence that this was caused by UTI, no growth on urine culture Altered mental status/epilepsy/seizure like activity/accidental fall from bed/mild mental retardation-- mental status appears to be at baseline, answering simple questions, he is alert appreciate Neurology recommendations for seizures AMS is resolved (2) UTI (urinary tract infection): no growth on urine culture stop Ceftriaxone again, there is now no evidence for UTI, did not cause his encephalopathy (3) Accidental fall from bed: As noted above (4) Epilepsy: As noted above. need to continue Onfi, Lamictal, Felbamate, no further seizures while admitted (5) Seizure-like activity: EEG done 05/21, no seizure activity (6) Mild mental retardation: Continue usual medications consult CM to look into SNF PT/OT ordered (7) TBI (traumatic brain injury): As above.. difficult disposition cannot return to [facility], they lack the staff to care for his needs [facility] without beds and reluctant to take him [facility] will not take without a specific plan in place once he is done with rehab will be here over the weekend, may end up being [facility] process no major changes today, patient is eating fine, sleeping most of the day Subjective no changes today, patient resting in bed Review of Systems All systems reviewed & are unremarkable except as noted in HPI & below Physical Exam Vital Signs (Past 24 Hours): Last Vital Signs Temp 36.7 C 05/25/18 11:31 Pulse 55 L 05/25/18 15:19 Resp 20 05/25/18 11:31 BP 110/62 05/25/18 11:31 Pulse Ox 95 05/25/18 11:31 Constitutional: WD/WN, vitals as above Eyes: PERRL, conjunctivae normal, anicteric sclerae ENMT: external ear and nose normal, oropharynx normal Neck: trachea midline, no thyromegaly Respiratory: normal respiratory effort, lungs clear to auscultation Cardiovascular: RRR, no murmur, no edema Gastrointestinal (Abdomen): normal bowel sounds, soft, nontender, no hepatosplenomegaly Musculoskeletal: no cyanosis or clubbing, extremities motor strength 5/5 Skin: no rashes, warm and dry Neurologic: patellar DTR's 2+ bilat, sensation intact and PERRL, EOMI, accommodation nl, no face palsy, no dysarthria Motor/Sensory: + tremor (all four extremities) Psychiatric: Orientation: alert and oriented x 3 Affect: + depressed affect Cognition: recent memory grossly intact Judgement: + limited judgement Lymphatic: no cervical or axillary lymphadenopathy Results & Data Laboratory Results Laboratory Results - last 24 hr 05/21/18 10:05 Lamotrigine 12.3 Felbamate 35 Medications Administered Current Inpatient Medications Acetaminophen (Tylenol) 325 mg PO Q4H PRN PRN Reason: Pain Stop: 06/20/18 00:52 Acetaminophen (Tylenol) 650 mg PO Q4H PRN PRN Reason: Pain or Fever Stop: 06/20/18 00:52 Last Admin: 05/23/18 01:56 Dose: 650 mg Documented by: Buspirone HCl (Buspar) 15 mg PO QAM [facility] Stop: 06/20/18 08:59 Last Admin: 05/25/18 08:37 Dose: 15 mg Documented by: Buspirone HCl (Buspar) 30 mg PO HS [facility] Stop: 06/20/18 20:59 Last Admin: 05/24/18 21:35 Dose: 30 mg Documented by: Enoxaparin Sodium (Lovenox) 40 mg SQ Q24H [facility] Stop: 06/20/18 08:59 Last Admin: 05/25/18 08:34 Dose: 40 mg Documented by: Finasteride (Proscar) 5 mg PO QAM [facility] Stop: 06/20/18 08:59 Last Admin: 05/25/18 08:38 Dose: 5 mg Documented by: Fluoxetine HCl (Prozac) 20 mg PO QAM [facility] Stop: 06/20/18 08:59 Last Admin: 05/25/18 08:37 Dose: 20 mg Documented by: Fluticasone Propionate (Flonase) 2 sprays [facility] [place]: 06/20/18 08:59 Last Admin: 05/25/18 08:33 Dose: 2 sprays Documented by: Gabapentin (Neurontin) 100 mg PO TID [facility] Stop: 06/20/18 08:59 Last Admin: 05/25/18 13:44 Dose: 100 mg Documented by: Lacosamide (Vimpat) 200 mg PO Q12H [facility] Stop: 06/20/18 08:59 Last Admin: 05/25/18 08:33 Dose: 200 mg Documented by: Multivitamins/Minerals (Multivitamin W/ Minerals Tab) 1 tab PO QAM [facility] Stop: 06/20/18 08:59 Last Admin: 05/25/18 08:38 Dose: 1 tab Documented by: Neomycin/Polymyxin/Bacitracin (Neosporin Oint) 1 appln TOP BID PRN PRN Reason: Wound Care Last Admin: 05/25/18 13:49 Dose: 1 appln Documented by: Felbamate - Non- Formulary Patient's Own Med 1 ea PO Q12 [facility]; Protocol Stop: 06/20/18 20:59 Last Admin: 05/25/18 08:35 Dose: 1 tab Documented by: Preservision Areds - Non-Formulary Patient's Own Med 2 ea PO DAILY [facility] Stop: 06/21/18 08:59 Last Admin: 05/25/18 08:43 Dose: 2 cap Documented by: Lamotrigine Er 25 Mg - Non-Formulary Patient's Own Med 1 ea PO Q12 [facility]; Protocol Stop: 06/20/18 20:59 Last Admin: 05/25/18 08:40 Dose: 25 mg Documented by: Lamotrigine Er 50 Mg - Non-Formulary Patient's Own Med 1 ea PO Q12 [facility]; Protocol Stop: 06/20/18 20:59 Last Admin: 05/25/18 08:42 Dose: 50 mg Documented by: Lamotrigine Er 100 Mg - Non-Formulary Patient's Own Med 1 ea PO Q12 [facility]; Protocol Stop: 06/20/18 20:59 Last Admin: 05/25/18 08:42 Dose: 100 mg Documented by: Lamotrigine Er 200 Mg - Non-Formulary Patient's Own Med 1 ea PO Q12 [facility]; Protocol Stop: 06/20/18 20:59 Last Admin: 05/25/18 08:43 Dose: 200 mg Documented by: Clobazam - Non- Formulary Patient's Own Med 0.5 ea PO BID [facility]; Protocol Stop: 06/20/18 20:59 Last Admin: 05/25/18 08:33 Dose: 0.5 mg Documented by: Ondansetron HCl (Zofran) 8 mg PO Q8H PRN PRN Reason: Nausea And Vomiting Stop: 06/20/18 00:52 Pantoprazole Sodium (Protonix) 40 mg PO QAM [facility] Stop: 06/20/18 08:59 Last Admin: 05/25/18 08:37 Dose: 40 mg Documented by: Polyethylene Glycol (Miralax Powder Packet) 17 gm PO DAILY PRN PRN Reason: Constipation Stop: 06/20/18 00:52 Propranolol HCl (Inderal La) 80 mg PO Q12H [facility] Stop: 06/20/18 08:59 Last Admin: 05/25/18 08:49 Dose: 80 mg Documented by: Senna/Docusate Sodium (Senokot S) 1 tab PO BID [facility] Stop: 06/20/18 08:59 Last Admin: 05/25/18 08:39 Dose: 1 tab Documented by: Sodium Chloride ([place] Nasal) 1 sprays [facility] Q3H PRN PRN Reason: Dryness Stop: 06/20/18 00:52 Tamsulosin HCl (Flomax) 0.4 mg PO Q12H [facility] Stop: 06/20/18 08:59 Last Admin: 05/25/18 08:39 Dose: 0.4 mg Documented by: (1) Altered mental status Altered mental status type: unspecified Qualified Code(s): R41.82 - Altered mental status, unspecified (2) UTI (urinary tract infection) Hematuria presence: with hematuria Urinary tract infection type: site unspecified Qualified Code(s): N39.0 - Urinary tract infection, site not specified; R31.9 - Hematuria, unspecified (3) Accidental fall from bed Encounter type: initial encounter Qualified Code(s): W06.XXXA - Fall from bed, initial encounter
[2018-05-26] MEDS: GABAPENTIN 100 MG CAP PO SCH ×3 (09:04→21:07)
[2018-05-26] MEDS: TAMSULOSIN HCL 0.4 MG CAP PO SCH ×2 (09:05→21:03)
[2018-05-26] MEDS: FLUTICASONE PROPIONATE NA SPR 16 GM BTL NAE SCH (09:05)
[2018-05-26] MEDS: CEROVITE ADV FORMULA TAB PO SCH (09:05)
[2018-05-26] MEDS: FINASTERIDE 5 MG TAB PO SCH (09:05)
[2018-05-26] MEDS: DOCUSATE SODIUM/SENNA 50/8.6MG TAB PO SCH ×2 (09:05→21:05)
[2018-05-26] MEDS: PANTOprazole 40 MG TAB PO SCH (09:05)
[2018-05-26] MEDS: BusPIRone 15 MG TAB PO SCH ×2 (09:05→21:06)
[2018-05-26] MEDS: ENOXAPARIN INJ 40 MG/0.4 ML SYR SQ SCH (09:06)
[2018-05-26] MEDS: FLUOXETINE HCL 20 MG CAP PO SCH (09:06)
[2018-05-26] MEDS: PROPRANOLOL HCL LA 80 MG CAPCR PO SCH ×2 (09:08→21:04)
[2018-05-26] MEDS: FELBAMATE PO SCH ×2 (09:09→21:11)
[2018-05-26] MEDS: LAMOTRIGINE 100 MG PO SCH ×2 (09:10→21:10)
[2018-05-26] MEDS: LAMOTRIGINE 25 MG PO SCH ×2 (09:10→21:11)
[2018-05-26] MEDS: LAMOTRIGINE 50 MG PO SCH ×2 (09:11→21:09)
[2018-05-26] MEDS: LAMOTRIGINE 200 MG PO SCH ×2 (09:11→21:08)
[2018-05-26] MEDS: PRESERVISION AREDS PO SCH (09:13)
[2018-05-26] MEDS: CLOBAZAM PO SCH ×2 (09:59→21:03)
[2018-05-26] MEDS: LACOSAMIDE 50 MG TABLET PO SCH ×2 (09:59→21:02)
--- NOTE | 2018-05-26 22:22 | Hospitalist Progress Note ---
Date of Service May 26, 2018 Assessment & Plan (1) Altered mental status: Metabolic encephalopathy, likely post ictal no evidence that this was caused by UTI, no growth on urine culture Altered mental status/epilepsy/seizure like activity/accidental fall from bed/mild mental retardation-- mental status appears to be at baseline, answering simple questions, he is alert appreciate Neurology recommendations for seizures AMS is resolved, even more alert and talkative today (2) UTI (urinary tract infection): no growth on urine culture stop Ceftriaxone again, there is now no evidence for UTI, did not cause his encephalopathy (3) Accidental fall from bed: As noted above (4) Epilepsy: As noted above. need to continue Onfi, Lamictal, Felbamate, no further seizures while admitted (5) Seizure-like activity: EEG done 05/21, no seizure activity (6) Mild mental retardation: Continue usual medications consult CM to look into SNF PT/OT ordered (7) TBI (traumatic brain injury): As above.. difficult disposition cannot return to [facility], they lack the staff to care for his needs [facility] without beds and reluctant to take him [facility] will not take without a specific plan in place once he is done with rehab d/w patient's father today, his social welfare clerk is looking into more options try for rehab once there is a definitive placement plan Subjective patient doing well, more alert today denies dyspnea, chest pain, abdominal pain, N/V/D is eating well updated father at the bedside he understands that [facility] will not accept without a definitive plan he says that the patient's social welfare clerk is trying to get him into a different home CM will follow up tomorrow Review of Systems All systems reviewed & are unremarkable except as noted in HPI & below Physical Exam Vital Signs (Past 24 Hours): Last Vital Signs Temp 36.6 C 05/26/18 20:49 Pulse 54 L 05/26/18 21:13 Resp 18 05/26/18 20:49 BP 106/61 05/26/18 20:49 Pulse Ox 92 05/26/18 20:49 Constitutional: WD/WN, vitals as above Eyes: PERRL, conjunctivae normal, anicteric sclerae ENMT: external ear and nose normal, oropharynx normal Neck: trachea midline, no thyromegaly Respiratory: normal respiratory effort, lungs clear to auscultation Cardiovascular: RRR, no murmur, no edema Gastrointestinal (Abdomen): normal bowel sounds, soft, nontender, no hepatosplenomegaly Musculoskeletal: no cyanosis or clubbing, extremities motor strength 5/5 Skin: no rashes, warm and dry Neurologic: patellar DTR's 2+ bilat, sensation intact and PERRL, EOMI, accommodation nl, no face palsy, no dysarthria Motor/Sensory: + tremor (all four extremities) Psychiatric: Orientation: alert and oriented x 3 Affect: + depressed affect Cognition: recent memory grossly intact Judgement: + limited judgement Lymphatic: no cervical or axillary lymphadenopathy Results & Data Medications Administered Current Inpatient Medications Acetaminophen (Tylenol) 325 mg PO Q4H PRN PRN Reason: Pain Stop: 06/20/18 00:52 Acetaminophen (Tylenol) 650 mg PO Q4H PRN PRN Reason: Pain or Fever Stop: 06/20/18 00:52 Last Admin: 05/23/18 01:56 Dose: 650 mg Documented by: Buspirone HCl (Buspar) 15 mg PO [facility] Stop: 06/20/18 08:59 Last Admin: 05/26/18 09:05 Dose: 15 mg Documented by: Buspirone HCl (Buspar) 30 mg PO HS [facility] Stop: 06/20/18 20:59 Last Admin: 05/26/18 21:06 Dose: 30 mg Documented by: Enoxaparin Sodium (Lovenox) 40 mg SQ Q24H [facility] Stop: 06/20/18 08:59 Last Admin: 05/26/18 09:06 Dose: 40 mg Documented by: Finasteride (Proscar) 5 mg PO [facility] Stop: 06/20/18 08:59 Last Admin: 05/26/18 09:05 Dose: 5 mg Documented by: Fluoxetine HCl (Prozac) 20 mg PO [facility] Stop: 06/20/18 08:59 Last Admin: 05/26/18 09:06 Dose: 20 mg Documented by: Fluticasone Propionate (Flonase) 2 sprays REINALDO [facility] Stop: 06/20/18 08:59 Last Admin: 05/26/18 09:05 Dose: 2 sprays Documented by: Gabapentin (Neurontin) 100 mg PO TID [facility] Stop: 06/20/18 08:59 Last Admin: 05/26/18 21:07 Dose: 100 mg Documented by: Lacosamide (Vimpat) 200 mg PO Q12H [facility] Stop: 06/20/18 08:59 Last Admin: 05/26/18 21:02 Dose: 200 mg Documented by: Multivitamins/Minerals (Multivitamin W/ Minerals Tab) 1 tab PO QAM [facility] Stop: 06/20/18 08:59 Last Admin: 05/26/18 09:05 Dose: 1 tab Documented by: Neomycin/Polymyxin/Bacitracin (Neosporin Oint) 1 appln TOP BID PRN PRN Reason: Wound Care Last Admin: 05/25/18 13:49 Dose: 1 appln Documented by: Felbamate - Non- Formulary Patient's Own Med 1 ea PO Q12 [facility]; Protocol Stop: 06/20/18 20:59 Last Admin: 05/26/18 21:11 Dose: 600 mg Documented by: Preservision Areds - Non-Formulary Patient's Own Med 2 ea PO DAILY [facility] Stop: 06/21/18 08:59 Last Admin: 05/26/18 09:13 Dose: 2 cap Documented by: Lamotrigine Er 25 Mg - Non-Formulary Patient's Own Med 1 ea PO Q12 KENIA; Protocol Stop: 06/20/18 20:59 Last Admin: 05/26/18 21:11 Dose: 25 mg Documented by: Lamotrigine Er 50 Mg - Non-Formulary Patient's Own Med 1 ea PO Q12 KENIA; Protocol Stop: 06/20/18 20:59 Last Admin: 05/26/18 21:09 Dose: 50 mg Documented by: Lamotrigine Er 100 Mg - Non-Formulary Patient's Own Med 1 ea PO Q12 KENIA; Protocol Stop: 06/20/18 20:59 Last Admin: 05/26/18 21:10 Dose: 100 mg Documented by: Lamotrigine Er 200 Mg - Non-Formulary Patient's Own Med 1 ea PO Q12 [facility]; Protocol Stop: 06/20/18 20:59 Last Admin: 05/26/18 21:08 Dose: 200 mg Documented by: Clobazam - Non- Formulary Patient's Own Med 0.5 ea PO BID KENIA; Protocol Stop: 06/20/18 20:59 Last Admin: 05/26/18 21:03 Dose: 5 mg Documented by: Ondansetron HCl (Zofran) 8 mg PO Q8H PRN PRN Reason: Nausea And Vomiting Stop: 06/20/18 00:52 Pantoprazole Sodium (Protonix) 40 mg PO QAM [facility] Stop: 06/20/18 08:59 Last Admin: 05/26/18 09:05 Dose: 40 mg Documented by: Polyethylene Glycol (Miralax Powder Packet) 17 gm PO DAILY PRN PRN Reason: Constipation Stop: 06/20/18 00:52 Propranolol HCl (Inderal La) 80 mg PO Q12H [facility] Stop: 06/20/18 08:59 Last Admin: 05/26/18 21:04 Dose: 80 mg Documented by: Senna/Docusate Sodium (Senokot S) 1 tab PO BID [facility] Stop: 06/20/18 08:59 Last Admin: 05/26/18 21:05 Dose: 1 tab Documented by: Sodium Chloride ([place] Nasal) 1 sprays REINALDO Q3H PRN PRN Reason: Dryness Stop: 06/20/18 00:52 Tamsulosin HCl (Flomax) 0.4 mg PO Q12H [facility] Stop: 06/20/18 08:59 Last Admin: 05/26/18 21:03 Dose: 0.4 mg Documented by: (1) Altered mental status Altered mental status type: unspecified Qualified Code(s): R41.82 - Altered mental status, unspecified (2) UTI (urinary tract infection) Hematuria presence: with hematuria Urinary tract infection type: site unspecified Qualified Code(s): N39.0 - Urinary tract infection, site not specified; R31.9 - Hematuria, unspecified (3) Accidental fall from bed Encounter type: initial encounter Qualified Code(s): W06.XXXA - Fall from bed, initial encounter
[2018-05-27 08:41] LABS: Hematocrit (blood only) 41.6 % (42-52); Hemoglobin 14.1 g/dL (14.0-18.0); Mean Corpuscular Hgb Conc 33.9 g/dL (32-36); Mean Corpuscular Volume 93.5 fL (80-100); Mean Platelet Volume 8.6 fL (7.4-10.4); Platelet Count 116 K/uL (130-400); RDW Coefficient of Variation 13.5 % (11.5-14.5); RDW Standard Deviation 46.1 fL (36.4-46.3); Red Blood Count 4.45 M/uL (4.7-6.1)
[2018-05-27 09:13] LABS: Albumin Level 3.8 gm/dl (3.4-5.0); BUN Creatinine Ratio 11.8 (10-20); Calcium 8.8 mg/dl (8.5-10.1); Est GFR (African American) 93.5; Est GFR (Non-African American) 80.7; Magnesium 1.8 mg/dl (1.8-2.4); Potassium 3.9 mmol/L (3.5-5.1)
[2018-05-27] MEDS: FLUTICASONE PROPIONATE NA SPR 16 GM BTL NAE SCH (09:14)
[2018-05-27] MEDS: BusPIRone 15 MG TAB PO SCH ×2 (09:14→21:21)
[2018-05-27] MEDS: TAMSULOSIN HCL 0.4 MG CAP PO SCH ×2 (09:14→21:22)
[2018-05-27 09:15] LABS: Albumin Globulin Ratio 1.3 (0.9-2); Bilirubin,Total 0.6 mg/dl (0.2-1); Globulin 2.9 gm/dl (2.5-4.0); Total Protein 6.7 gm/dl (6.4-8.2)
[2018-05-27] MEDS: ENOXAPARIN INJ 40 MG/0.4 ML SYR SQ SCH (09:15)
[2018-05-27] MEDS: PROPRANOLOL HCL LA 80 MG CAPCR PO SCH ×2 (09:15→21:22)
[2018-05-27] MEDS: CEROVITE ADV FORMULA TAB PO SCH (09:16)
[2018-05-27] MEDS: GABAPENTIN 100 MG CAP PO SCH ×3 (09:17→21:23)
[2018-05-27] MEDS: FELBAMATE PO SCH ×2 (09:20→21:25)
[2018-05-27] MEDS: LAMOTRIGINE 100 MG PO SCH ×2 (09:20→21:26)
[2018-05-27] MEDS: LAMOTRIGINE 200 MG PO SCH ×2 (09:21→21:27)
[2018-05-27] MEDS: LAMOTRIGINE 25 MG PO SCH ×2 (09:21→21:27)
[2018-05-27] MEDS: LAMOTRIGINE 50 MG PO SCH ×2 (09:22→21:28)
[2018-05-27] MEDS: PRESERVISION AREDS PO SCH (09:22)
[2018-05-27] MEDS: FLUOXETINE HCL 20 MG CAP PO SCH (09:23)
[2018-05-27] MEDS: PANTOprazole 40 MG TAB PO SCH (09:23)
[2018-05-27] MEDS: FINASTERIDE 5 MG TAB PO SCH (09:23)
[2018-05-27] MEDS: DOCUSATE SODIUM/SENNA 50/8.6MG TAB PO SCH ×2 (09:24→21:28)
[2018-05-27] MEDS: LACOSAMIDE 50 MG TABLET PO SCH ×2 (09:44→21:28)
[2018-05-27] MEDS: CLOBAZAM PO SCH ×2 (09:44→21:23)
--- NOTE | 2018-05-27 15:59 | Hospitalist Progress Note ---
Date of Service May 27, 2018 Assessment & Plan (1) Altered mental status: - Presented with altered mental status of unclear etiology -- may be related to post ictal state vs. infection vs. other. - Most recent documented witnessed seizure activity was on 05/15/18 per ED notes. Has presented to the ED during multiple occasions over last month for falls. - Mental status now resolved back to baseline. - Neurology consulted, recommended continuing home seizure medications. (2) UTI (urinary tract infection): - U/a was positive; UC negative. - Received Ceftriaxone, now discontinued. (3) Accidental fall from bed: - Has presented for multiple falls at previous living facility. - PT/OT recommending rehab -- placement at SNF vs. acute rehab pending acceptance. (4) Epilepsy: - Neurology consulted, recommneded continuing home seizure meds. - EEG was negative. - Continue Lamictal, Onfi, Vimpat and Felbamate as prescribed. - Toxicity levels were WNL during this admission. (5) Mild mental retardation: - Continue home medications. - Will be discharged to rehab; plan following rehab placement is unclear at this point, case management following. (6) TBI (traumatic brain injury): - As noted above. (7) Anxiety and depression: - Continue Buspar and Prozac as prescribed. (8) BPH (benign prostatic hyperplasia): - Continue Proscar and Flomax as prescribed. (9) Neuropathy: - Has h/o degenerative arthritis of cervical spine. - Continue gabapetin as prescribed. (10) GERD (gastroesophageal reflux disease): - PPI qAM. (11) Benign essential tremor: - Continue propanolol as prescribed. (12) DVT prophylaxis: - Lovenox q24hr. Dispo: Discharge to rehab pending placement, case management following. Supervising Physician Co-Signing Physician Notes PA Supervision Note: I did not personally see or examine the patient today, but I verified all west points of JESSIKA Bernstein's assessment and plan with the following exceptio ns/additions: None Subjective Pt. is doing well overall. He denies further seizure like activity, increased confusion. Pt. is alert and oriented x 3. Will be discharged to rehab pending placement. Review of Systems All systems reviewed & are unremarkable except as noted in HPI & below Constitutional: no fever, no chills, no fatigue and no weakness Respiratory: no cough and no dyspnea Cardiovascular: no chest pain, no palpitations, no syncope and no edema Gastrointestinal: no abdominal pain, no nausea and no constipation Genitourinary (Male): no difficulty urinating Musculoskeletal: no joint pain Neurologic: no abnormal movements and no seizure-like activity Allergy / Immunological: no rash Physical Exam Vital Signs (Past 24 Hours): Last Vital Signs Temp 36.3 C L 05/27/18 15:03 Pulse 55 L 05/27/18 15:03 Resp 16 05/27/18 15:03 BP 119/66 05/27/18 15:03 Pulse Ox 92 05/27/18 15:03 Physical Exam: General: Resting comfortably in no apparent distress; A&OX3 HEENT: NC/AT; PERRLA with EOMI; [place] conjunctiva, MMM. Neck: Supple and nontender Cardiac: RRR w/o murmurs, gallops or rubs Lungs: CTA bilaterally; No rhonchi, wheezing, or rales Abdomen: Bowel normoactive X 4; Nontender to palpation Extremities: Warm. No edema present Neuro: No focal weakness Skin: No rash Results & Data Laboratory Results 05/27/18 05/27/18 Range/Units 08:30 08:30 WBC 4.40 L (4.8-10.8) K/uL RBC 4.45 L (4.7-6.1) M/uL Hgb 14.1 (14.0-18.0) g/dL Hct 41.6 L (42-52) % MCV 93.5 (80-100) fL MCH 31.7 (25-34) pg MCHC 33.9 (32-36) g/dL RDW Std Deviation 46.1 (36.4-46.3) fL RDW Coeff of Eunice 13.5 (11.5-14.5) % Plt Count 116 L (130-400) K/uL MPV 8.6 (7.4-10.4) fL Sodium 141 (136-145) mmol/L Potassium 3.9 (3.5-5.1) mmol/L Chloride 105 (98-107) mmol/L Carbon Dioxide 34 H (21-32) mmol/L Anion Gap 2.0 L (3-11) BUN 12 (7-18) mg/dl Creatinine 1.05 (0.6-1.4) mg/dl Est Cr Clr Drug Dosing 84.0 ml/min Est GFR ( Amer) 93.5 Est GFR (Non-Af Amer) 80.7 BUN/Creatinine Ratio 11.8 (10-20) Glucose 84 (70-99) mg/dl Calcium 8.8 (8.5-10.1) mg/dl Magnesium 1.8 (1.8-2.4) mg/dl Total Bilirubin 0.6 (0.2-1) mg/dl AST 15 (15-37) U/L ALT 19 (12-78) U/L Alkaline Phosphatase 118 H (45-117) U/L Total Protein 6.7 (6.4-8.2) gm/dl Albumin 3.8 (3.4-5.0) gm/dl Globulin 2.9 (2.5-4.0) gm/dl Albumin/Globulin Ratio 1.3 (0.9-2) (1) Accidental fall from bed Encounter type: initial encounter Qualified Code(s): W06.XXXA - Fall from bed, initial encounter (2) UTI (urinary tract infection) Hematuria presence: with hematuria Urinary tract infection type: site unspecified Qualified Code(s): N39.0 - Urinary tract infection, site not specified; R31.9 - Hematuria, unspecified (3) Altered mental status Altered mental status type: unspecified Qualified Code(s): R41.82 - Altered mental status, unspecified
[2018-05-28 06:58] LABS: BUN Creatinine Ratio 13.3 (10-20); Calcium 8.7 mg/dl (8.5-10.1); Creatinine Clr Calc Pharmacy 84.7 ml/min; Est GFR (African American) 96.8; Est GFR (Non-African American) 83.5; Potassium 3.8 mmol/L (3.5-5.1)
[2018-05-28] MEDS: BusPIRone 15 MG TAB PO SCH ×2 (08:41→20:11)
[2018-05-28] MEDS: TAMSULOSIN HCL 0.4 MG CAP PO SCH ×2 (08:42→20:12)
[2018-05-28] MEDS: FLUTICASONE PROPIONATE NA SPR 16 GM BTL NAE SCH (08:42)
[2018-05-28] MEDS: PROPRANOLOL HCL LA 80 MG CAPCR PO SCH ×2 (08:42→20:13)
[2018-05-28] MEDS: CEROVITE ADV FORMULA TAB PO SCH (08:43)
[2018-05-28] MEDS: ENOXAPARIN INJ 40 MG/0.4 ML SYR SQ SCH (08:43)
[2018-05-28] MEDS: GABAPENTIN 100 MG CAP PO SCH ×3 (08:44→20:12)
[2018-05-28] MEDS: FELBAMATE PO SCH ×2 (08:45→20:09)
[2018-05-28] MEDS: LAMOTRIGINE 100 MG PO SCH ×2 (08:45→20:08)
[2018-05-28] MEDS: LAMOTRIGINE 25 MG PO SCH ×2 (08:46→20:08)
[2018-05-28] MEDS: LAMOTRIGINE 200 MG PO SCH ×2 (08:46→20:08)
[2018-05-28] MEDS: LAMOTRIGINE 50 MG PO SCH ×2 (08:47→20:07)
[2018-05-28] MEDS: FINASTERIDE 5 MG TAB PO SCH (08:47)
[2018-05-28] MEDS: PRESERVISION AREDS PO SCH (08:47)
[2018-05-28] MEDS: DOCUSATE SODIUM/SENNA 50/8.6MG TAB PO SCH ×2 (08:48→20:12)
[2018-05-28] MEDS: PANTOprazole 40 MG TAB PO SCH (08:48)
[2018-05-28] MEDS: FLUOXETINE HCL 20 MG CAP PO SCH (08:48)
[2018-05-28] MEDS: CLOBAZAM PO SCH ×2 (11:00→22:10)
[2018-05-28] MEDS: LACOSAMIDE 50 MG TABLET PO SCH ×2 (11:02→22:11)
--- NOTE | 2018-05-28 16:59 | Hospitalist Progress Note ---
Date of Service May 28, 2018 Assessment & Plan (1) Altered mental status: - Presented with altered mental status of unclear etiology -- may be related to post ictal state vs. infection vs. other. - Most recent documented witnessed seizure activity was on 05/15/18 per ED notes. Has presented to the ED during multiple occasions over last month for falls. - Mental status now resolved back to baseline. - Neurology consulted, recommended continuing home seizure medications. (2) UTI (urinary tract infection): - U/a was positive; UC negative. - Received Ceftriaxone, now discontinued. (3) Accidental fall from bed: - Has presented for multiple falls at previous living facility. - PT/OT recommending rehab -- placement at SNF pending acceptance. (4) Epilepsy: - Neurology consulted, recommended continuing home seizure meds. - EEG was negative. - Continue Lamictal, Onfi, Vimpat and Felbamate as prescribed. - Toxicity levels were WNL during this admission. (5) Mild mental retardation: - Continue home medications. - Will be discharged to rehab; plan following rehab placement is unclear at this point, case management following. (6) TBI (traumatic brain injury): - As noted above. (7) Anxiety and depression: - Continue Buspar and Prozac as prescribed. (8) BPH (benign prostatic hyperplasia): - Continue Proscar and Flomax as prescribed. (9) Neuropathy: - Has h/o degenerative arthritis of cervical spine. - Continue gabapetin as prescribed. (10) GERD (gastroesophageal reflux disease): - PPI qAM. (11) Benign essential tremor: - Continue propanolol as prescribed. (12) DVT prophylaxis: - Lovenox q24hr. Dispo: Discharge to rehab pending placement, case management following. Supervising Physician Co-Signing Physician Notes PA Supervision Note: I did not personally see or examine the patient today, but I verified all west points of JESSIKA Bernstein's assessment and plan with the following exceptions/additions: None Subjective Pt. is doing well overall. Plan for discharge to rehab pending placement. Review of Systems All systems reviewed & are unremarkable except as noted in HPI & below Constitutional: no fever, no chills, no fatigue and no weakness Respiratory: no cough and no dyspnea Cardiovascular: no chest pain, no palpitations, no syncope and no edema Gastrointestinal: no abdominal pain, no nausea and no constipation Genitourinary (Male): no difficulty urinating Musculoskeletal: no joint pain Allergy / Immunological: no rash Physical Exam Vital Signs (Past 24 Hours): Last Vital Signs Temp 36.6 C 05/28/18 15:13 Pulse 51 L 05/28/18 15:13 Resp 18 05/28/18 15:13 BP 95/62 L 05/28/18 15:13 Pulse Ox 95 05/28/18 15:13 Physical Exam: General: Resting comfortably in no apparent distress; A&OX3 HEENT: NC/AT; PERRLA with EOMI; [place] conjunctiva, MMM. Neck: Supple and nontender Cardiac: RRR w/o murmurs, gallops or rubs Lungs: CTA bilaterally; No rhonchi, wheezing, or rales Abdomen: Bowel normoactive X 4; Nontender to palpation Extremities: Warm. No edema present Neuro: No focal weakness Skin: No rash Results & Data Laboratory Results 05/28/18 Range/Units 05:53 Sodium 139 (136-145) mmol/L Potassium 3.8 (3.5-5.1) mmol/L Chloride 102 (98-107) mmol/L Carbon Dioxide 33 H (21-32) mmol/L Anion Gap 4.0 (3-11) BUN 14 (7-18) mg/dl Creatinine 1.02 (0.6-1.4) mg/dl Est Cr Clr Drug Dosing 84.7 ml/min Est GFR ( Amer) 96.8 Est GFR (Non-Af Amer) 83.5 BUN/Creatinine Ratio 13.3 (10-20) Glucose 79 (70-99) mg/dl Calcium 8.7 (8.5-10.1) mg/dl (1) Accidental fall from bed Encounter type: initial encounter Qualified Code(s): W06.XXXA - Fall from bed, initial encounter (2) UTI (urinary tract infection) Hematuria presence: with hematuria Urinary tract infection type: site unspecified Qualified Code(s): N39.0 - Urinary tract infection, site not specified; R31.9 - Hematuria, unspecified (3) Altered mental status Altered mental status type: unspecified Qualified Code(s): R41.82 - Altered mental status, unspecified
[2018-05-29] MEDS: DOCUSATE SODIUM/SENNA 50/8.6MG TAB PO SCH ×2 (08:36→21:13)
[2018-05-29] MEDS: FINASTERIDE 5 MG TAB PO SCH (08:36)
[2018-05-29] MEDS: CEROVITE ADV FORMULA TAB PO SCH (08:36)
[2018-05-29] MEDS: PANTOprazole 40 MG TAB PO SCH (08:36)
[2018-05-29] MEDS: BusPIRone 15 MG TAB PO SCH ×2 (08:36→21:38)
[2018-05-29] MEDS: PROPRANOLOL HCL LA 80 MG CAPCR PO SCH ×2 (08:36→21:02)
[2018-05-29] MEDS: FLUTICASONE PROPIONATE NA SPR 16 GM BTL NAE SCH (08:37)
[2018-05-29] MEDS: TAMSULOSIN HCL 0.4 MG CAP PO SCH ×2 (08:37→21:04)
[2018-05-29] MEDS: LAMOTRIGINE 25 MG PO SCH ×2 (08:38→21:08)
[2018-05-29] MEDS: LAMOTRIGINE 50 MG PO SCH ×2 (08:38→21:09)
[2018-05-29] MEDS: LAMOTRIGINE 200 MG PO SCH ×2 (08:39→21:10)
[2018-05-29] MEDS: FELBAMATE PO SCH ×2 (08:39→21:07)
[2018-05-29] MEDS: LAMOTRIGINE 100 MG PO SCH ×2 (08:39→21:09)
[2018-05-29] MEDS: PRESERVISION AREDS PO SCH (08:40)
[2018-05-29] MEDS: ENOXAPARIN INJ 40 MG/0.4 ML SYR SQ SCH (08:41)
[2018-05-29] MEDS: FLUOXETINE HCL 20 MG CAP PO SCH (08:41)
[2018-05-29] MEDS: GABAPENTIN 100 MG CAP PO SCH ×3 (08:41→21:05)
[2018-05-29] MEDS: CLOBAZAM PO SCH ×2 (09:13→21:40)
[2018-05-29] MEDS: LACOSAMIDE 50 MG TABLET PO SCH ×2 (09:13→21:37)
--- NOTE | 2018-05-29 14:22 | Hospitalist Progress Note ---
Date of Service May 29, 2018 Assessment & Plan (1) Altered mental status: - Presented with altered mental status of unclear etiology -- was likely related to post ictal state vs. infection vs. other. - Has presented to the ED during multiple occasions over the last few months for falls. - Mental status now resolved back to baseline. - Neurology consulted, recommended continuing home seizure medications. (2) UTI (urinary tract infection): - U/a was positive; UC negative. - Received Ceftriaxone, now discontinued. (3) Accidental fall from bed: - Has presented for multiple falls at previous living facility. - PT/OT recommending rehab -- discharge to SNF pending placement. (4) Epilepsy: - Neurology consulted, recommended continuing home seizure meds. - EEG was negative. - Continue Lamictal, Onfi, Vimpat and Felbamate as prescribed. - Toxicity levels were WNL during this admission. (5) Mild mental retardation: - Continue home medications. - Will be discharged to rehab. (6) TBI (traumatic brain injury): - As noted above. (7) Anxiety and depression: - Continue Buspar and Prozac as prescribed. (8) BPH (benign prostatic hyperplasia): - Continue Proscar and Flomax as prescribed. (9) Neuropathy: - Has h/o degenerative arthritis of cervical spine. - Continue gabapetin as prescribed. (10) GERD (gastroesophageal reflux disease): - PPI qAM. (11) Benign essential tremor: - Continue propanolol as prescribed. (12) DVT prophylaxis: - Lovenox q24hr. Dispo: Discharge to rehab pending placement, likely on 05/30. Prescription for Clobazam was sent to [facility] in [place] -- will be available to pepper picker tomorrow afternoon. Called his father to discuss picking up medication, have not heard back yet. Co-pay is $50.00. Supervising Physician Co-Signing Physician Notes PA Supervision Note: I did not personally see or examine the patient today, but I verified all west points of JESSIKA Bernstein's assessment and plan with the following exceptions/additions: None Subjective Pt. was doing well today. No complaints. Plan for discharge to SNF pending placement. Review of Systems All systems reviewed & are unremarkable except as noted in HPI & below Constitutional: no fever, no chills, no weakness and no anorexia Respiratory: no cough and no dyspnea Cardiovascular: no chest pain, no palpitations and no edema Gastrointestinal: no abdominal pain, no nausea and no constipation Genitourinary (Male): no difficulty urinating Musculoskeletal: no joint pain Allergy / Immunological: no rash Physical Exam Vital Signs (Past 24 Hours): Last Vital Signs Temp 36.8 C 05/29/18 07:15 Pulse 51 L 05/29/18 07:15 Resp 18 05/29/18 07:15 BP 102/60 05/29/18 07:15 Pulse Ox 94 05/29/18 07:15 Physical Exam: General: Resting comfortably in no apparent distress HEENT: NC/AT; PERRLA with EOMI; [place] conjunctiva, MMM. Neck: Supple and nontender Cardiac: RRR Lungs: CTA bilaterally Abdomen: Bowel normoactive X 4; Nontender to palpation Extremities: Warm. No edema present Neuro: No focal weakness Skin: No rash (1) Accidental fall from bed Encounter type: initial encounter Qualified Code(s): W06.XXXA - Fall from bed, initial encounter (2) UTI (urinary tract infection) Hematuria presence: with hematuria Urinary tract infection type: site unspecified Qualified Code(s): N39.0 - Urinary tract infection, site not specified; R31.9 - Hematuria, unspecified (3) Altered mental status Altered mental status type: unspecified Qualified Code(s): R41.82 - Altered mental status, unspecified
[2018-05-29 23:35] VITALS: O2SAT 95
[2018-05-30 06:58] VITALS: BP 96/62; PULSE 54; TEMP 98.1
[2018-05-30] MEDS: CEROVITE ADV FORMULA TAB PO SCH (08:40)
[2018-05-30] MEDS: FLUOXETINE HCL 20 MG CAP PO SCH (08:40)
[2018-05-30] MEDS: TAMSULOSIN HCL 0.4 MG CAP PO SCH (08:40)
[2018-05-30] MEDS: PANTOprazole 40 MG TAB PO SCH (08:40)
[2018-05-30] MEDS: PROPRANOLOL HCL LA 80 MG CAPCR PO SCH (08:40)
[2018-05-30] MEDS: FINASTERIDE 5 MG TAB PO SCH (08:41)
[2018-05-30] MEDS: BusPIRone 15 MG TAB PO SCH (08:41)
[2018-05-30] MEDS: GABAPENTIN 100 MG CAP PO SCH ×2 (08:41→13:58)
[2018-05-30] MEDS: DOCUSATE SODIUM/SENNA 50/8.6MG TAB PO SCH (08:43)
[2018-05-30] MEDS: ENOXAPARIN INJ 40 MG/0.4 ML SYR SQ SCH (08:43)
[2018-05-30] MEDS: FLUTICASONE PROPIONATE NA SPR 16 GM BTL NAE SCH (08:43)
[2018-05-30] MEDS: LAMOTRIGINE 25 MG PO SCH (08:44)
[2018-05-30] MEDS: FELBAMATE PO SCH (08:44)
[2018-05-30] MEDS: LAMOTRIGINE 50 MG PO SCH (08:44)
[2018-05-30] MEDS: LAMOTRIGINE 200 MG PO SCH (08:45)
[2018-05-30] MEDS: LAMOTRIGINE 100 MG PO SCH (08:45)
[2018-05-30] MEDS: PRESERVISION AREDS PO SCH (08:46)
[2018-05-30] MEDS: LACOSAMIDE 50 MG TABLET PO SCH (09:00)
[2018-05-30] MEDS: CLOBAZAM PO SCH (09:00)
--- NOTE | 2018-05-30 13:23 | Discharge Summary ---
Date of Service May 30, 2018 Admission HPI Per Admitting Provider The patient is a 52-year-old male resident of a local boarding home, who was noted by staff workers to have approximately 30 minutes of seizure-like activity where he would speak in sentences did not make any sense and was slurring his words after a fall. He was reportedly being transferred from his wheelchair to a chair and he fell over the wheelchair. There was reportedly no head trauma, and the patient had complained of generalized discomfort. At the time of my examination, the patient is sedated, and information for HPI and review of systems is gathered from the ER records and from conversation with his father, who is in the room with the patient at this time. His father does report, that he feels the patient requires more care than they can do at the boarding home, and has been attempting to get him moved to a nursing facility where he can get more continuous care. Admission Exam Per Admitting Provider The patient is nonresponding, normocephalic and atraumatic, lying in bed and in no acute distress. HEENT--PERRL, mucous membranes and oropharynx normal. Neck--supple. No JVD. No bruits. Thyroid normal, trachea midline, no adenopathy. Heart--normal S1 and S2. No murmurs, rubs or gallops. Lungs--clear bilaterally, no respiratory distress, no accessory muscle use. Abdomen--normal bowel sounds and soft. Nontender. Nondistended. Extremities--no cyanosis or clubbing. No edema. There are good distal pulses b/l. Dermatologic--normal skin turgor, normal color, no abnormal lymph nodes, no rash. Neurologic--cranial nerves II through XII grossly intact. Rheumatologic--limited exam Psychiatric--nonresponding Principal Diagnosis Acute Encephalopathy, now resolved. Discharge Exam General: Resting comfortably in no apparent distress HEENT: NC/AT; PERRLA with EOMI; [place] conjunctiva, MMM. Neck: Supple and nontender Cardiac: RRR Lungs: CTA bilaterally Abdomen: Bowel normoactive X 4; Nontender to palpation Extremities: Warm. No edema present Neuro: No focal weakness Skin: No rash Discharge Data Allergies Allergy/AdvReac Type Severity Reaction Status Date / Time Bactrim Allergy Unknown dizziness Verified 10/22/17 13:25 and increase in tremor sulfamethoxazole Allergy Unknown dizziness Verified 05/20/18 17:25 and increase in tremor trimethoprim Allergy Unknown dizziness Verified 05/20/18 17:25 and increase in tremor grapefruit AdvReac Unknown INTERACTS Verified 05/20/18 17:25 WITH OTHER MEDS ibuprofen AdvReac Unknown avoids Verified 05/20/18 17:25 secondary to reactions with other medications levetiracetam AdvReac Unknown AGITATION Verified 05/20/18 17:25 Consultations 05/20/18 20:53 ED Decision to Admit Stat 05/21/18 00:53 Consult Case Management - Discharge Planning Routine 05/21/18 03:41 Consult Neurology Routine Ordered Studies 05/20/18 20:10 CT head/brain wo con Stat CXR 05/20/18 Hospital Course (1) Altered mental status: Presented with altered mental status of unclear etiology -- was likely related to post ictal state vs. infection vs. other. Neurology was consulted, recommended continuing home seizure medications as prescribed. Acute encephalopathy resolved and pt. returned to baseline prior to discharge. (2) UTI (urinary tract infection): U/a was positive; UC negative. Received Ceftriaxone, was discontinued due to negative infectious work up. (3) Accidental fall from bed: Has presented for multiple falls at previous living facility. PT/OT recommended rehab -- will be discharged to SNF. (4) Epilepsy: Neurology consulted, recommended continuing home seizure meds. EEG was negative. Home Lamictal, Onfi, Vimpat and Felbamate was continued as prescribed. Toxicity levels were all WNL. (5) Mild mental retardation: Continued home medications. Will be discharged to rehab. (6) TBI (traumatic brain injury): As noted above. (7) Anxiety and depression: Continued Buspar and Prozac as prescribed. (8) BPH (benign prostatic hyperplasia): Continued Proscar and Flomax as prescribed. (9) Neuropathy: Has h/o degenerative arthritis of cervical spine. Continued gabapetin as prescribed. (10) GERD (gastroesophageal reflux disease): PPI qAM. (11) Benign essential tremor: Continued propanolol as prescribed. (12) DVT prophylaxis: Lovenox q24hr. Pt. was stable for discharge to SNF on 05/30/18. Total Time Total Time Spent Total Time Spent (In Minutes): >30 minutes Total Time Includes: Examination of the Patient, Discharge Planning, Medication Reconciliation, Communication With Other Providers and Other Discharge Plan Discharge Items Patient Disposition: Transfer Senior Care Fac Reason For Visit: ALTERED MENTAL STATE, UTI Discharge Diagnosis: Altered Mental Status - now resolved Condition: Fair Discharge Goals: Decrease discomfort, Diagnostic testing, Improve disease control, Improve function, Increase independence, Prevent disease and Therapeutic intervention Activity: As commented below Activity Comment: Per PT/OT recs. Exercise/Sports: Gradually increase as tolerated Non-emergency contact: Primary Care Provider Call non-emergency contact if: you have any medication questions, your symptoms worsen, your pain is not controlled, your pain is worsening, your pain is concerning for you and you have a fever Follow-up/Referrals: Jose Juan Brady III, MD [Primary Care Provider] - Diet: Regular Diet Texture: Mechanical soft (ground) Addtl Provider Instructions: 1. History of Epilepsy * Please continue home seizure medications as prescribed. * Please schedule a follow up with primary care provider in 1-2 weeks. * He will also need to follow up with his neurologist in the future. 2. Please call your primary care provider or go to the ER if you develop the following: * Chest pain or shortness of breath. * Abdominal pain, N/V or diarrhea in the setting of recent antibiotics. Prescriptions: New clobazam 10 mg tablet 5 mg PO BID Qty: 30 RF: 2 Continued felbamate 600 mg Tablet 600 mg PO Q12H RF: 0 tamsulosin [Flomax] 0.4 mg Capsule 0.4 mg PO Q12H RF: 0 propranolol 80 mg Capsule,Extended Release 24 Hr 80 mg PO Q12H RF: 0 gabapentin 100 mg Capsule 100 mg PO TID RF: 0 fluoxetine [Prozac] 20 mg Capsule 20 mg PO QAM RF: 0 fluticasone propionate [Flonase Allergy Relief] 50 mcg/actuation Hersey,Suspension 2 spray INTRANASAL QAM RF: 0 finasteride 5 mg Tablet 5 mg PO QAM RF: 0 Neosporin ([id number]) 3.5-400-5,000 [id number] Ointment In Packet 1 applic TOPICAL BID PRN (Reason: Wound Care) RF: 0 Vimpat 200 mg Tablet 200 mg PO Q12H RF: 0 acetaminophen [Tylenol] 325 mg Tablet 325 mg PO Q4H PRN (Reason: Pain) RF: 0 buspirone 15 mg Tablet 15 mg PO QAM RF: 0 lamotrigine [Lamictal XR] 100 mg Tablet Extended Release 24hr 100 mg PO Q12H RF: 0 lamotrigine [Lamictal XR] 200 mg tablet extended release 24hr 200 mg PO Q12H RF: 0 sodium chloride [Saline Mist] 0.65 % Aerosol,Hersey 1 spray INTRANASAL Q3H PRN (Reason: Dry Nasal Passages) RF: 0 ondansetron HCl 8 mg Tablet 8 mg PO Q8H PRN (Reason: Nausea And Vomiting) RF: 0 sennosides-docusate sodium [Senna-S] 8.6-50 mg Tablet 1 tab PO BID RF: 0 carbamide peroxide [Debrox] 6.5 % Drops 5 drp otic (ear) BID PRN (Reason: Ear Wax) RF: 0 Therems-M 27-0.4 mg Tablet 1 tab PO QAM RF: 0 lamotrigine 50 mg tablet extended release 24hr 50 mg PO Q12H RF: 0 PreserVision AREDS [id number],160-113-100 [id number] Tablet 2 cap PO DAILY RF: 0 buspirone 30 mg tablet 30 mg PO HS RF: 0 omeprazole 20 mg capsule,delayed release(DR/EC) 20 mg PO QAM RF: 0 lamotrigine 25 mg tablet extended release 24hr 25 mg PO Q12H RF: 0 Discontinued clobazam [Onfi] 10 mg Tablet 5 mg PO BID RF: 0 Stand-Alone Forms: [facility] Discharge Orders: Discharge Order (Routine); Ordered 05/30/18 Ordered By: Paula Cruz Skilled Items Patient informed of condition?: Yes DNR: No Discharge Level of Care: Skilled Communicable Disease: Yes Discharge Prognosis: Stable Admission Data Admit Date/Time: 05/20/18 22:58 Attending Provider: Paula Cruz Admit Provider: Norris Latif Primary Care Provider: Jose Juan Brady III Other Providers: Willian Rashid Rick D Service: Telemetry Medical Other Interventions: Discharge Summary Assessment (RN) Last Done: 05/30/18 13:33 Pending Studies at Discharge: No DC Date/Time DO NOT enter until pt leaves facility: 03/28/19 14:38 Supervising Physician Co-Signing Physician Notes JESSIKA Supervision Note: I personally saw and examined the patient. I verified all west points and agree with JESSIKA Bernstein with the following exceptions and/or additions: Pt has no complaints. Stable. Vitals reviewed Alert but drowsy when I saw him, NAD RRR no mgr CTAB no wcr Neuro with intention tremor in all limbs 53 yo male here with encephalopathy possibly secondary to seizure vs UTI. Improved, stable, ready for dc to SNF
== END 2018-05-30 14:38 | DRG 689 ==
LOC: ED 16:25 → 2W 22:58 → SUATTDRO 22:58 → 2W 05-21 00:21

== ENCOUNTER 2019-10-25 19:43 | Inpatient (IN) ==
[2019-10-25] MEDS ORDERED: ACETAMINOPHEN 1,000 MG/100 ML VIAL IV STA (19:54)
[2019-10-25] MEDS ORDERED: CEFEPIME 2,000 MG/20 ML VIAL IV STA (19:54)
[2019-10-25] MEDS ORDERED: SODIUM CHLORIDE 0.9% 1000ML 1,000 ML IV SCH (20:00)
--- NOTE | 2019-10-25 20:03 | Emergency Department Note ---
Impression & Plan Seizure, Fever, Pneumonia ED Provider Note NAME: ARMANI DOTY AGE: 54 SEX: M : 1965 ARRIVES VIA: Ambulance INFORMANT: [ems, nursing] ED PROVIDER(S): [José Luis Fenton MD] CHIEF COMPLAINT: Seizure HISTORY OF PRESENT ILLNESS: The patient is a 54-year-old male with a seizure disorder and a history of mental delay/retardation. The patient is on multiple antiseizure medications. Today, he had a reported 25-minute seizure-like event. EMS administered IM Versed 5 mg and then a second 5 mg. Patient is now opening his eyes to voice. He does have a constant tremor but this is baseline. Of note, the patient had a low-grade temperature earlier today and, as per nursing staff, he has a temperature of 38.5 rectally. The patient can give no history as he has significant mental delay. No further history obtainable given the circumstances. REVIEW OF SYSTEMS: Unobtainable given the circumstances PMHx/PSHx: See Below SOCIAL HISTORY: See Below. PHYSICAL EXAM: GENERAL: Patient is in no acute distress. HEENT: No acute trauma, normocephalic atraumatic, mucous membranes moist, no nasal congestion, no scleral icterus. NECK: No stridor, no adenopathy, no meningismus, trachea is midline. LUNGS: No respiratory distress, normal respiratory rate. No obvious wheezing. HEART: Rhythm seems regular, he has equal carotid and radial pulses bilaterally. ABDOMEN: Soft, nontender, bowel sounds positive, no hernias, no peritonitis. EXTREMITIES: No cyanosis or edema, full range of motion of all the joints without pain or difficulty, no signs for acute trauma. NEUROLOGIC: Awakes to voice and opens his eyes. Nonverbal currently, he does have a constant tremor noted. SKIN: No rash, no jaundice, no diaphoresis. Groin: No evidence for erythema or cellulitis. DIFFERENTIAL DIAGNOSIS: Sepsis, UTI, pneumonia, metabolic, electrolyte abnormalities, coronavirus, seizure, dehydration, cardiac sources, intracerebral event, toxicologic, neurologic, as well as other pathologies. EMERGENCY DEPARTMENT COURSE/PROCEDURES: ECG: Indication was possible seizure. The ECG shows a normal sinus rhythm wi th a rate of 65. The QTc is 401. There is no ST elevation, no PVCs. There are inverted T waves in the anterior and lateral leads. Compared to an ECG from 06 September 2018, the inverted T wave changes are new. Continuous Cardiac Monitoring: An order was placed for continuous cardiac monitoring. The monitor shows a rate of 63 with normal sinus rhythm. Critical Care Note: I have personally spent greater than 48 minutes of critical care time in the direct management of this patient. This includes bedside care, interpretation of diagnostic studies, and testing, discussion with consultants, patient, and family members, and other required patient management activities. This 48 minutes is in excess of all separately billable procedures. MEDICAL DECISION MAKING: There is no leukocytosis or concerning anemia. There is a normal platelet count. No concerning coagulopathy. No kidney failure. Lactic acid level is not elevated making sepsis less likely. Magnesium slightly low at 1.7. Alk phos slightly elevated, the remaining liver enzymes were unremarkable. Procalcitonin level was normal. ECG showed a sinus rhythm with some inverted T waves in the anterior and lateral leads. Cardiac troponin testing x1 was negative. Urinalysis did not show any evidence for infection. Coronavirus testing returned negative. Chest film showed some congestion/atelectasis or infiltrate at both bases. On exam, there was no obvious cellulitis. The patient did have some tremor but was arousable to voice. He was febrile. Patient received IV saline for hydration. He was given IV magnesium for the slightly low magnesium value. He received IV cefepime as empiric antibiotic coverage. He was given IV Tylenol. The cause for the fever is not completely clear but certainly may be from the lower lung congestion seen on chest x-ray. He may have an early pneumonia. For now, observation in the hospital is warranted. He has done well here in the ED, his temperature has decreased. There has been no further seizure activity. I did speak to the patient's caregivers, I spoke to case management. The on- call hospitalist was consulted. 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, subsequent encounter Dysphagia GERD (gastroesophageal reflux disease) Hydronephrosis with ureteral calculus Hyperlipidemia Hypokalemia Inguinal hernia Kidney stone Mild intellectual disabilities Muscle weakness (generalized) Rectal bleed Recurrent depressive disorder Status epilepticus Tegretol toxicity Urinary retention Urinary tract infection Surgical History H/O left inguinal hernia repair H/O lithotripsy History of cholecystectomy Family History Father Myocardial infarction Social History Smoking Status: Never smoker Hx Alcohol Use: No Hx Substance Use: No Preferred Language: Wolof Communication Ability: Impaired Bundle Shaker Required: No Beliefs That Will Affect Care: None marital status: Single Current Living Situation: Personal Care Facility Current Living Situation Comment: [facility] Feels Safe at Home: Yes Allergies Allergies Allergy/AdvReac Type Severity Reaction Status Date / Time sulfamethoxazole Allergy Intermediate dizziness Verified 10/25/19 21:26 and increase in tremor trimethoprim Allergy Intermediate dizziness Verified 10/25/19 21:27 and increase in tremor Bactrim Allergy Unknown dizziness Verified 10/22/17 13:25 and increase in tremor grapefruit AdvReac Mild INTERACTS Verified 10/25/19 21:27 WITH OTHER MEDS ibuprofen AdvReac Mild avoids Verified 10/25/19 21:28 secondary to reactions with other medications levetiracetam AdvReac Mild AGITATION Verified 10/25/19 21:28 Home Meds Home Medications Medication Instructions Recorded Confirmed acetaminophen [Tylenol] 325 mg PO Q6 PRN 11/14/17 10/25/19 buspirone 15 mg PO QAM 11/14/17 10/25/19 sodium chloride [Saline Mist] 1 spray INTRANASAL Q3H PRN 02/01/18 10/25/19 ondansetron HCl 8 mg PO Q8H PRN 03/13/18 10/25/19 buspirone 30 mg PO HS 05/01/18 10/25/19 magnesium hydroxide [Milk of 15 ml PO DAILY PRN 10/18/18 10/25/19 Magnesia] propranolol 80 mg PO BID 10/25/19 10/25/19 sennosides-docusate sodium 1 tab PO TID 10/25/19 10/25/19 [Senna-S] Previous Rx's Medication Instructions Recorded fluoxetine 20 mg capsule 20 mg PO QAM #30 cap 11/27/18 vitamins A,C,U-mtwm-rshbus 7,160 2 tab PO DAILY #60 tab 12/05/18 unit-113 mg-100 unit tablet gabapentin 100 mg capsule 100 mg PO TID 30 Days #90 cap 01/21/19 lamotrigine 200 mg tablet,extended 400 mg PO BID 30 Days #120 tab 02/19/19 release 24 hr primidone 50 mg tablet 50 mg PO TID 30 Days #90 tab 03/03/19 carbamide peroxide 6.5 % ear drops 4 drops OTIC (EAR) DAILY #30 ml 03/13/19 finasteride 5 mg tablet 5 mg PO DAILY #90 tab 03/18/19 tamsulosin 0.4 mg capsule 0.4 mg PO Q12H #180 cap 03/18/19 felbamate 600 mg tablet 600 mg PO BID 30 Days #60 tab 05/07/19 lacosamide 200 mg tablet 200 mg PO BID 30 Days #60 tab 05/07/19 fluticasone propionate 50 2 spray INTRANASAL QAM #18.2 ml 07/30/19 mcg/actuation nasal spray,suspension clobazam 10 mg tablet 5 mg PO BID 30 Days #30 tab 08/23/19 Results & Data (ED) Vital Signs Vital Signs - 24 hr 10/25/19 19:53 10/25/19 20:26 10/25/19 20:29 Temperature 38.5 C H Temperature Source Rectal Pulse Rate 65 Pulse Rate from SpO2 Sensor Respiratory Rate 19 19 18 Respiratory Effort / Characteristics Non-Labored Spontaneous Non-Labored Spontaneous Respiratory Depth Normal Respiratory Pattern Regular Regular Blood Pressure 143/77 H Blood Pressure Mean 99 Pulse Oximetry 92 88 L 95 Oxygen Delivery Method Room Air Room Air Oxymask Oxygen Flow Rate 3 Sepsis Recent Fever Within 48 Hours Yes Sepsis New/Unexplained Change in Mental Status N/A Sepsis Action Taken by Nursing Physician Notified 10/25/19 20:30 10/25/19 21:00 10/25/19 21:30 Temperature 37.7 C H Temperature Source Pulse Rate 64 66 63 Pulse Rate from SpO2 Sensor 64 65 63 Respiratory Rate 22 22 21 Respiratory Effort / Characteristics Respiratory Depth Respiratory Pattern Blood Pressure 135/82 146/82 H 141/83 H Blood Pressure Mean 94 93 104 Pulse Oximetry 94 95 95 Oxygen Delivery Method Oxymask Oxygen Flow Rate 3 Sepsis Recent Fever Within 48 Hours Sepsis New/Unexplained Change in Mental Status Sepsis Action Taken by Nursing 10/25/19 22:00 10/25/19 22:30 Temperature Temperature Source Pulse Rate 61 58 L Pulse Rate from SpO2 Sensor 61 58 L Respiratory Rate 20 18 Respiratory Effort / Characteristics Respiratory Depth Respiratory Pattern Blood Pressure 139/85 133/78 Blood Pressure Mean 97 88 Pulse Oximetry 97 99 Oxygen Delivery Method Oxymask Oxymask Oxygen Flow Rate 3 3 Sepsis Recent Fever Within 48 Hours Sepsis New/Unexplained Change in Mental Status Sepsis Action Taken by [facility] Medications Current Medication List: was personally reviewed by me Laboratory Data Attestation: I reviewed the patient's lab results. Result diagrams: 10/25/19 20:00 10/25/19 20:00 Lab Results 10/25/19 10/25/19 10/25/19 Range/Units 20:00 20:00 20:00 WBC 8.47 (4.8-10.8) K/uL RBC 4.72 (4.7-6.1) M/uL Hgb 15.2 (14.0-18.0) g/dL Hct 45.8 (42-52) % MCV 97.0 (80-100) fL MCH 32.2 (25-34) pg MCHC 33.2 (32-36) g/dL RDW Std Deviation 48.6 H (36.4-46.3) fL RDW Coeff of Eunice 13.6 (11.5-14.5) % Plt Count 165 (130-400) K/uL MPV 9.2 (7.4-10.4) fL Immature Gran % (Auto) 0.4 % Neut % (Auto) 70.3 % Lymph % (Auto) 16.8 % Chambers % (Auto) 11.9 % Eos % (Auto) 0.5 % Baso % (Auto) 0.1 % Neut # (Auto) 5.96 (1.4-6.5) K/uL Lymph # (Auto) 1.42 (1.2-3.4) K/uL Chambers # (Auto) 1.01 H (0.11-0.59) K/uL Eos # (Auto) 0.04 (0-0.5) K/uL Baso # (Auto) 0.01 (0-0.2) K/uL Immature Gran # (Auto) 0.03 H (0.00-0.02) K/uL PT 10.5 (9.0-12.0) Seconds INR 1.0 (0.9-1.1) APTT 42.1 H (21.0-31.0) Seconds PTT Ratio 1.5 Sodium (136-145) mmol/L Potassium (3.5-5.1) mmol/L Chloride (98-107) mmol/L Carbon Dioxide (21-32) mmol/L Anion Gap (3-11) BUN (7-18) mg/dl Creatinine (0.6-1.4) mg/dl Est Cr Clr Drug Dosing ml/min Est GFR ( Amer) Est GFR (Non-Af Amer) BUN/Creatinine Ratio (10-20) Glucose (70-99) mg/dl Lactate Calcium (8.5-10.1) mg/dl Magnesium (1.8-2.4) mg/dl Total Bilirubin (0.2-1) mg/dl AST (15-37) U/L ALT (12-78) U/L Alkaline Phosphatase (45-117) U/L Troponin I (0-0.045) ng/ml Total Protein (6.4-8.2) gm/dl Albumin (3.4-5.0) gm/dl Globulin (2.5-4.0) gm/dl Albumin/Globulin Ratio (0.9-2) Procalcitonin < 0.05 (0-0.5) ng/ml Urine Color Urine Appearance (Clear) Urine pH (4.5-7.5) Ur Specific Lane (1.000-1.030) Urine Protein (Negative) Urine Glucose (UA) (Negative) Urine Ketones (Negative) Urine Blood (Negative) Urine Nitrite (Negative) Urine Bilirubin (Negative) Urine Urobilinogen (Negative) Ur Leukocyte Esterase (Negative) Urine WBC (Auto) (0-5) /hpf Urine RBC (Auto) (0-4) /hpf U Hyaline Cast (Auto) (0-5) /lpf U Epithel Cells (Auto) (0-5) /lpf Urine Bacteria (Auto) (Negative) COVID-19 Eval Order COVID-19 PCR (Negative) 10/25/19 10/25/19 10/25/19 Range/Units 20:00 20:15 20:15 WBC (4.8-10.8) K/uL RBC (4.7-6.1) M/uL Hgb (14.0-18.0) g/dL Hct (42-52) % MCV (80-100) fL MCH (25-34) pg MCHC (32-36) g/dL RDW Std Deviation (36.4-46.3) fL RDW Coeff of Eunice (11.5-14.5) % Plt Count (130-400) K/uL MPV (7.4-10.4) fL Immature Gran % (Auto) % Neut % (Auto) % Lymph % (Auto) % Chambers % (Auto) % Eos % (Auto) % Baso % (Auto) % Neut # (Auto) (1.4-6.5) K/uL Lymph # (Auto) (1.2-3.4) K/uL Chambers # (Auto) (0.11-0.59) K/uL Eos # (Auto) (0-0.5) K/uL Baso # (Auto) (0-0.2) K/uL Immature Gran # (Auto) (0.00-0.02) K/uL PT (9.0-12.0) Seconds INR (0.9-1.1) APTT (21.0-31.0) Seconds PTT Ratio Sodium 138 (136-145) mmol/L Potassium 3.9 (3.5-5.1) mmol/L Chloride 103 (98-107) mmol/L Carbon Dioxide 28 (21-32) mmol/L Anion Gap 7.0 (3-11) BUN 9 (7-18) mg/dl Creatinine 0.88 (0.6-1.4) mg/dl Est Cr Clr Drug Dosing 104.1 ml/min Est GFR ( Amer) 112.1 Est GFR (Non-Af Amer) 96.7 BUN/Creatinine Ratio 10.7 (10-20) Glucose 100 H (70-99) mg/dl Lactate Calcium 9.4 (8.5-10.1) mg/dl Magnesium 1.7 L (1.8-2.4) mg/dl Total Bilirubin 0.7 (0.2-1) mg/dl AST 18 (15-37) U/L ALT 24 (12-78) U/L Alkaline Phosphatase 153 H (45-117) U/L Troponin I (0-0.045) ng/ml Total Protein 7.5 (6.4-8.2) gm/dl Albumin 3.7 (3.4-5.0) gm/dl Globulin 3.8 (2.5-4.0) gm/dl Albumin/Globulin Ratio 1.0 (0.9-2) Procalcitonin (0-0.5) ng/ml Urine Color Dark Yellow Urine Appearance Clear (Clear) Urine pH 7.0 (4.5-7.5) Ur Specific Lane 1.025 (1.000-1.030) Urine Protein Negative (Negative) Urine Glucose (UA) Negative (Negative) Urine Ketones Negative (Negative) Urine Blood Negative (Negative) Urine Nitrite Negative (Negative) Urine Bilirubin Negative (Negative) Urine Urobilinogen Negative (Negative) Ur Leukocyte Esterase Trace H (Negative) Urine WBC (Auto) 0 (0-5) /hpf Urine RBC (Auto) 0-4 (0-4) /hpf U Hyaline Cast (Auto) 0 (0-5) /lpf U Epithel Cells (Auto) 0-5 (0-5) /lpf Urine Bacteria (Auto) Negative (Negative) COVID-19 Eval Order Covid19 Done at [facility] COVID-19 PCR (Negative) 10/25/19 10/25/19 10/25/19 Range/Units 20:15 20:42 21:34 WBC (4.8-10.8) K/uL RBC (4.7-6.1) M/uL Hgb (14.0-18.0) g/dL Hct (42-52) % MCV (80-100) fL MCH (25-34) pg MCHC (32-36) g/dL RDW Std Deviation (36.4-46.3) fL RDW Coeff of Eunice (11.5-14.5) % Plt Count (130-400) K/uL MPV (7.4-10.4) fL Immature Gran % (Auto) % Neut % (Auto) % Lymph % (Auto) % Chambers % (Auto) % Eos % (Auto) % Baso % (Auto) % Neut # (Auto) (1.4-6.5) K/uL Lymph # (Auto) (1.2-3.4) K/uL Chambers # (Auto) (0.11-0.59) K/uL Eos # (Auto) (0-0.5) K/uL Baso # (Auto) (0-0.2) K/uL Immature Gran # (Auto) (0.00-0.02) K/uL PT (9.0-12.0) Seconds INR (0.9-1.1) APTT (21.0-31.0) Seconds PTT Ratio Sodium (136-145) mmol/L Potassium (3.5-5.1) mmol/L Chloride (98-107) mmol/L Carbon Dioxide (21-32) mmol/L Anion Gap (3-11) BUN (7-18) mg/dl Creatinine (0.6-1.4) mg/dl Est Cr Clr Drug Dosing ml/min Est GFR ( Amer) Est GFR (Non-Af Amer) BUN/Creatinine Ratio (10-20) Glucose (70-99) mg/dl Lactate Cancelled 0.6 Calcium (8.5-10.1) mg/dl Magnesium (1.8-2.4) mg/dl Total Bilirubin (0.2-1) mg/dl AST (15-37) U/L ALT (12-78) U/L Alkaline Phosphatase (45-117) U/L Troponin I (0-0.045) ng/ml Total Protein (6.4-8.2) gm/dl Albumin (3.4-5.0) gm/dl Globulin (2.5-4.0) gm/dl Albumin/Globulin Ratio (0.9-2) Procalcitonin (0-0.5) ng/ml Urine Color Urine Appearance (Clear) Urine pH (4.5-7.5) Ur Specific Lane (1.000-1.030) Urine Protein (Negative) Urine Glucose (UA) (Negative) Urine Ketones (Negative) Urine Blood (Negative) Urine Nitrite (Negative) Urine Bilirubin (Negative) Urine Urobilinogen (Negative) Ur Leukocyte Esterase (Negative) Urine WBC (Auto) (0-5) /hpf Urine RBC (Auto) (0-4) /hpf U Hyaline Cast (Auto) (0-5) /lpf U Epithel Cells (Auto) (0-5) /lpf Urine Bacteria (Auto) (Negative) COVID-19 Eval Order COVID-19 PCR NEGATIVE (Negative) 10/25/19 Range/Units 22:33 WBC (4.8-10.8) K/uL RBC (4.7-6.1) M/uL Hgb (14.0-18.0) g/dL Hct (42-52) % MCV (80-100) fL MCH (25-34) pg MCHC (32-36) g/dL RDW Std Deviation (36.4-46.3) fL RDW Coeff of Eunice (11.5-14.5) % Plt Count (130-400) K/uL MPV (7.4-10.4) fL Immature Gran % (Auto) % Neut % (Auto) % Lymph % (Auto) % Chambers % (Auto) % Eos % (Auto) % Baso % (Auto) % Neut # (Auto) (1.4-6.5) K/uL Lymph # (Auto) (1.2-3.4) K/uL Chambers # (Auto) (0.11-0.59) K/uL Eos # (Auto) (0-0.5) K/uL Baso # (Auto) (0-0.2) K/uL Immature Gran # (Auto) (0.00-0.02) K/uL PT (9.0-12.0) Seconds INR (0.9-1.1) APTT (21.0-31.0) Seconds PTT Ratio Sodium (136-145) mmol/L Potassium (3.5-5.1) mmol/L Chloride (98-107) mmol/L Carbon Dioxide (21-32) mmol/L Anion Gap (3-11) BUN (7-18) mg/dl Creatinine (0.6-1.4) mg/dl Est Cr Clr Drug Dosing ml/min Est GFR ( Amer) Est GFR (Non-Af Amer) BUN/Creatinine Ratio (10-20) Glucose (70-99) mg/dl Lactate Calcium (8.5-10.1) mg/dl Magnesium (1.8-2.4) mg/dl Total Bilirubin (0.2-1) mg/dl AST (15-37) U/L ALT (12-78) U/L Alkaline Phosphatase (45-117) U/L Troponin I < 0.015 (0-0.045) ng/ml Total Protein (6.4-8.2) gm/dl Albumin (3.4-5.0) gm/dl Globulin (2.5-4.0) gm/dl Albumin/Globulin Ratio (0.9-2) Procalcitonin (0-0.5) ng/ml Urine Color Urine Appearance (Clear) Urine pH (4.5-7.5) Ur Specific Lane (1.000-1.030) Urine Protein (Negative) Urine Glucose (UA) (Negative) Urine Ketones (Negative) Urine Blood (Negative) Urine Nitrite (Negative) Urine Bilirubin (Negative) Urine Urobilinogen (Negative) Ur Leukocyte Esterase (Negative) Urine WBC (Auto) (0-5) /hpf Urine RBC (Auto) (0-4) /hpf U Hyaline Cast (Auto) (0-5) /lpf U Epithel Cells (Auto) (0-5) /lpf Urine Bacteria (Auto) (Negative) COVID-19 Eval Order COVID-19 PCR (Negative) Administered Medications Sodium Chloride (Nss 1000ml) 1,000 mls @ 125 mls/hr IV .Q8H KENIA Stop: 11/25/19 00:26 Last Admin: 10/26/19 01:06 Dose: 125 mls/hr Documented by: [id number] Lacosamide (Lacosamide 50 Mg Tablet) 200 mg PO BID KENIA Stop: 11/25/19 00:26 Last Admin: 10/26/19 01:05 Dose: 200 mg Documented by: [id number] Propranolol HCl (Propranolol Hcl La 80 Mg Capcr) 80 mg PO BID KENIA Stop: 11/25/19 00:26 Last Admin: 10/26/19 01:06 Dose: 80 mg Documented by: [id number] Tamsulosin HCl (Tamsulosin Hcl 0.4 Mg Cap) 0.4 mg PO Q12 KENIA Stop: 11/25/19 00:59 Last Admin: 10/26/19 01:05 Dose: 0.4 mg Documented by: [id number] Discontinued Medications Sodium Chloride (Nss 1000ml) 1,000 mls @ 999 mls/hr IV .Q1H1M KENIA Stop: 10/25/19 21:00 Last Infusion: 10/25/19 21:38 Dose: 0 mls/hr Documented by: [id number] Admin: 10/25/19 20:21 Dose: 999 mls/hr Documented by: [id number] Cefepime HCl (Maxipime) 2,000 mg in 20 mls @ 5 mls/min IV NOW STA; Protocol Stop: 10/25/19 19:57 Last Admin: 10/25/19 20:20 Dose: 5 mls/min Documented by: [id number] Acetaminophen (Ofirmev) 1,000 mg in 100 mls @ 400 mls/hr IV NOW STA Stop: 10/25/19 20:08 Last Infusion: 10/25/19 21:38 Dose: 0 mls/hr Documented by: [id number] Admin: 10/25/19 20:21 Dose: 400 mls/hr Documented by: [id number] Magnesium Sulfate/Dextrose (Magnesium Sulfate / D5w) 1 gm in 100 mls @ 100 mls/hr IV NOW STA Stop: 10/25/19 21:46 Last Infusion: 10/25/19 22:43 Dose: 0 mls/hr Documented by: [id number] Admin: 10/25/19 21:45 Dose: 100 mls/hr Documented by: [id number] Tamsulosin HCl (Tamsulosin Hcl 0.4 Mg Cap) 0.4 mg PO Q12H KENIA Stop: 11/25/19 00:26 Last Admin: 10/26/19 00:51 Dose: Not Given Documented by: [id number] Imaging Data Attestation: I personally reviewed and interpreted this imaging study as follows: My Impression: Chest x-ray: There is a poor inspiratory effort. There is congestion/atelectasis or possible infiltrates at both bases. No pneumothorax. Blood Pressure Blood Pressure Findings: Elevated blood pressure Blood Pressure Disposition: further management by hospitalist Discharge Plan Visit Data Chief Complaint: Seizure Stated Complaint: SEIZURE ED Provider: José Luis Fenton Discharge Problem: Seizure, Fever, Pneumonia Patient Disposition: Admitted As Inpatient Condition: Fair Discharge Instructions Interventions: ED Discharge Assessment Last Done: 10/25/19 23:46 Discharge Problem: Fever Qualifiers: Fever type: unspecified Qualified Code(s): R50.9 - Fever, unspecified Pneumonia Qualifiers: Pneumonia type: due to unspecified organism Laterality: bilateral Lung location: lower lobe of lung Qualified Code(s): J18.9 - Pneumonia, unspecified organism
[2019-10-25 20:29] LABS: Basophils # (auto) 0.01 K/uL (0-0.2); Basophils % (auto) 0.1 %; Eosinophils # (auto) 0.04 K/uL (0-0.5); Eosinophils % (auto) 0.5 %; Hematocrit (blood only) 45.8 % (42-52); Hemoglobin 15.2 g/dL (14.0-18.0); Immature Granulocytes # (auto) 0.03 K/uL (0.00-0.02); Immature Granulocytes % (auto) 0.4 %; Lymphocytes # (auto) 1.42 K/uL (1.2-3.4); Lymphocytes % (auto) 16.8 %; Mean Corpuscular Hemoglobin 32.2 pg (25-34); Mean Corpuscular Hgb Conc 33.2 g/dL (32-36); Mean Platelet Volume 9.2 fL (7.4-10.4); Monocytes # (auto) 1.01 K/uL (0.11-0.59); Monocytes % (auto) 11.9 %; Neutrophils # (auto) 5.96 K/uL (1.4-6.5); Neutrophils % (auto) 70.3 %; Platelet Count 165 K/uL (130-400); RDW Coefficient of Variation 13.6 % (11.5-14.5); RDW Standard Deviation 48.6 fL (36.4-46.3); Red Blood Count 4.72 M/uL (4.7-6.1); White Blood Count 8.47 K/uL (4.8-10.8)
[2019-10-25 20:35] LABS: Appearance Urine Clear (Clear); Bacteria Urine Automated Negative (Negative); Bilirubin Urine Negative (Negative); Blood Urine Negative (Negative); Cast Urine Automated 0 /lpf (0-5); Color Urine Dark Yellow; Epithelial Cell Urine Auto 0-5 /lpf (0-5); Glucose Urine UA Negative (Negative); Ketones Urine Negative (Negative); Leukocyte Esterase Urine Trace (Negative); Nitrite Urine Negative (Negative); Protein Urine Negative (Negative); RBC Urine Automated 0-4 /hpf (0-4); Specific Gravity Urine 1.025 (1.000-1.030); Urobilinogen Urine Negative (Negative); WBC Urine Automated 0 /hpf (0-5)
[2019-10-25 20:41] LABS: Partial Thromboplastin Ratio 1.5; Partial Thromboplastin Time 42.1 Seconds (21.0-31.0); Prothrombin Time 10.5 Seconds (9.0-12.0)
[2019-10-25 20:45] LABS: Albumin Level 3.7 gm/dl (3.4-5.0); BUN Creatinine Ratio 10.7 (10-20); Calcium 9.4 mg/dl (8.5-10.1); Creatinine Clr Calc Pharmacy 104.1 ml/min; Est GFR (African American) 112.1; Est GFR (Non-African American) 96.7; Magnesium 1.7 mg/dl (1.8-2.4); Potassium 3.9 mmol/L (3.5-5.1)
[2019-10-25] MEDS ORDERED: MAGNESIUM SULFATE / D5W 1 GM/100 ML BAG IV STA (20:47)
[2019-10-25 20:48] LABS: Bilirubin,Total 0.7 mg/dl (0.2-1); Globulin 3.8 gm/dl (2.5-4.0); Total Protein 7.5 gm/dl (6.4-8.2)
--- NOTE | 2019-10-25 23:26 | History & Physical Report ---
Date of Service October 25, 2019 Assessment & Plan (1) Seizure: Mr. Ayaz Chatman is a 54 y/o male with past medical hx of cerebellar ataxia, seizure disorder, severe/refractory familial tremor, anxiety/depression, traumatic brain injury, GERD, BPH, cognitive impairment presented to [facility] for seizures, fever, and found to have possible pneumonia on CXR. - Seizure that lasted about 25 minutes FOREIGN DIPLOMAT to [facility] ED, treated with Versed 5mg IM x1. - No seizure activity reported since arrival - Mildly decreased mag in ED, treated in the ED with IV Mag. Trend. - Lives at [place] [facility], notes that has been strictly compliant with medication, no reported new acute symptoms pre caregiver. - Possible bilateral infiltrates in CXR in ED, started in Cefepine, will continue at 2mg IV q8h. Procal was noted to be normal. Did have rectal fever of 38.5. No other sources of fever found, no elevated WBC. - Blood cultures pending, possible fever from muscle contraction from seizure....? Treated with IV Tylenol and will continue. - Continue with home seizure meds, caregiver notes that Nonformulary seizure medications are en route via another caregiver. - Continue with seizure precautions - MRSA swab of nares ordered, for now continue on Cefepime. - Urine was negative for source. - Trend labs. FENGI: NPO, dysphagia screening, since post-itcal, once more back to baseline can reassess, okay to give PO meds Code: full Code DVT: SCDs Dispo: full admit, pcu/tele (2) Fever: as above (3) Pneumonia: as above, consider possible CT chest to help differentiate for lung infection. (4) TBI (traumatic brain injury): noted in hx (5) Benign essential tremor: noted in hx (6) GERD (gastroesophageal reflux disease): Pepcid 20mg IV until able to tolerate NPO (7) BPH (benign prostatic hyperplasia): c/w home meds (8) Anxiety and depression: c/w home SSRI (9) Cognitive impairment: noted in pa (10) Seizure disorder: c/w home onfi (clobazam 10mg BID c/w home Lamotrigine XR 400mg BID c/w home vimpat 200mg BID c/w home felbamate 600mg BID c.w home gabapentin 100mg TID c/w home Primidone 50mg TID Follow with [facility] Neuro. History of Present Illness Chief Complaint: Seizures Primary Care Provider: Jose Juan Brady MD Caveat: History Limited by - Post-ictal state/Cognitive impairment at baseline. Mr. Ayaz Chatman is a 54 y/o male with past medical hx of cerebellar ataxia, seizure disorder, severe/refractory familial tremor, anxiety/depression, traumatic brain injury, GERD, BPH, cognitive impairment presented to [facility] for seizures. Caregiver and father at bedside. He resides in a [place] [facility] per caregiver. He started to have seziures last night that were less than 5 minutes. He had one that was longer than 5 minutes around 7pm tonight which triggered criteria by staff to call 911. Obie had a seizure that lasted about 25 minutes FOREIGN DIPLOMAT to [facility] ED, treated with Versed 5mg IM x1, which resolved seizure. He notes to have baseline of one seizure per month. He follows with [facility] Neurology. Caregiver notes he has been taking all medications and has not had any recent new acute complaints. He was found to have a rectal temp of 38.5 C. He has possible bilateral pneumonia on CXR, mildly decreased Mag which was repleted in ED via IV, otherwise no other source of fever, no elevated WBC, no additional seizures here in ED. Patient is post-ictal and drowsy, but stable. Family notes that previous infections have aggravated seizures. No noted recent head trauma or oral/tongue injuries. Allergies Allergy/AdvReac Type Severity Reaction Status Date / Time sulfamethoxazole Allergy Intermediate dizziness Verified 10/25/19 21:26 and increase in tremor trimethoprim Allergy Intermediate dizziness Verified 10/25/19 21:27 and increase in tremor Bactrim Allergy Unknown dizziness Verified 10/22/17 13:25 and increase in tremor grapefruit AdvReac Mild INTERACTS Verified 10/25/19 21:27 WITH OTHER MEDS ibuprofen AdvReac Mild avoids Verified 10/25/19 21:28 secondary to reactions with other medications levetiracetam AdvReac Mild AGITATION Verified 10/25/19 21:28 Home Medications Home Medications Medication Instructions Recorded Confirmed Type acetaminophen [Tylenol] 325 mg PO Q6 PRN 11/14/17 10/25/19 History buspirone 15 mg PO QAM 11/14/17 10/25/19 History sodium chloride [Saline Mist] 1 spray INTRANASAL Q3H PRN 02/01/18 10/25/19 History ondansetron HCl 8 mg PO Q8H PRN 03/13/18 10/25/19 History buspirone 30 mg PO HS 05/01/18 10/25/19 History magnesium hydroxide [Milk of 15 ml PO DAILY PRN 10/18/18 10/25/19 History Magnesia] fluoxetine 20 mg capsule 20 mg PO QAM #30 cap 11/27/18 10/25/19 Rx vitamins A,C,N-xsls-nkfekx 7,160 2 tab PO DAILY #60 tab 12/05/18 10/25/19 Rx unit-113 mg-100 unit tablet gabapentin 100 mg capsule 100 mg PO TID 30 Days #90 cap 01/21/19 10/25/19 Rx lamotrigine 200 mg tablet,extended 400 mg PO BID 30 Days #120 tab 02/19/19 10/25/19 Rx release 24 hr primidone 50 mg tablet 50 mg PO TID 30 Days #90 tab 03/03/19 10/25/19 Rx carbamide peroxide 6.5 % ear drops 4 drops OTIC (EAR) DAILY #30 ml 03/13/19 10/25/19 Rx finasteride 5 mg tablet 5 mg PO DAILY #90 tab 03/18/19 10/25/19 Rx tamsulosin 0.4 mg capsule 0.4 mg PO Q12H #180 cap 03/18/19 10/25/19 Rx felbamate 600 mg tablet 600 mg PO BID 30 Days #60 tab 05/07/19 10/25/19 Rx lacosamide 200 mg tablet 200 mg PO BID 30 Days #60 tab 05/07/19 10/25/19 Rx fluticasone propionate 50 2 spray INTRANASAL QAM #18.2 ml 07/30/19 10/25/19 Rx mcg/actuation nasal spray,suspension clobazam 10 mg tablet 5 mg PO BID 30 Days #30 tab 08/23/19 10/25/19 Rx propranolol 80 mg PO BID 10/25/19 10/25/19 History sennosides-docusate sodium 1 tab PO TID 10/25/19 10/25/19 History [Senna-S] 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, subsequent encounter Dysphagia GERD (gastroesophageal reflux disease) Hydronephrosis with ureteral calculus Hyperlipidemia Hypokalemia Inguinal hernia Kidney stone Mild intellectual disabilities Muscle weakness (generalized) Rectal bleed Recurrent depressive disorder Status epilepticus Tegretol toxicity Urinary retention Urinary tract infection Surgical History H/O left inguinal hernia repair H/O lithotripsy History of cholecystectomy Family History Father Myocardial infarction Social History Smoking Status: Never smoker Hx Alcohol Use: No Hx Substance Use: No Preferred Language: Hungarian Communication Ability: Impaired 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 Beliefs That Will Affect Care: None marital status: Single Current Living Situation: Personal Care Facility Current Living Situation Comment: Adult Daycare Feels Safe at Home: Yes Review of Systems Review of Systems: Unobtainable due to cognitive status Physical Exam Constitutional: WD/WN, vitals as above comfortable drowsy, post-ictal Eyes: PERRL, conjunctivae normal, anicteric sclerae ENMT: external ear and nose normal, oropharynx normal Neck: trachea midline Thyroid: normal thyroid Respiratory: normal respiratory effort; no respiratory distress Auscultation: + diminished lung sounds Cardiovascular: RRR, no murmur, no edema Gastrointestinal (Abdomen): Percussion/Palpation: abdomen soft; abdomen nontender, no guarding and abdomen not rigid Musculoskeletal: Head/Neck/Chest: normocephalic and head atraumatic Skin: no rashes, warm and dry Neurologic: drowsy, no focal neuro deficits Psychiatric: drowsy but arouses easily Results & Data Results & Data ([facility]) Vital Signs (Past 12 Hours) Vital Signs Temp Pulse Resp BP Pulse Ox 10/25/19 22:30 58 L 18 133/78 99 10/25/19 22:00 61 20 139/85 97 10/25/19 21:30 37.7 C H 63 21 141/83 H 95 10/25/19 21:00 66 22 146/82 H 95 10/25/19 20:30 64 22 135/82 94 08/22/20 20:29 18 95 10/25/19 20:26 19 88 L 10/25/19 19:53 38.5 C H 65 19 143/77 H 92 Laboratory Results Laboratory Results - last 24 hr 10/25/19 10/25/19 10/25/19 20:00 20:00 20:00 WBC 8.47 RBC 4.72 Hgb 15.2 Hct 45.8 MCV 97.0 MCH 32.2 MCHC 33.2 RDW Std Deviation 48.6 H RDW Coeff of Eunice 13.6 Plt Count 165 MPV 9.2 Immature Gran % (Auto) 0.4 Neut % (Auto) 70.3 Lymph % (Auto) 16.8 [place] % (Auto) 11.9 Eos % (Auto) 0.5 Baso % (Auto) 0.1 Neut # (Auto) 5.96 Lymph # (Auto) 1.42 [place] # (Auto) 1.01 H Eos # (Auto) 0.04 Baso # (Auto) 0.01 Immature Gran # (Auto) 0.03 H PT 10.5 INR 1.0 APTT 42.1 H PTT Ratio 1.5 Sodium Potassium Chloride Carbon Dioxide Anion Gap BUN Creatinine Est Cr Clr Drug Dosing Est GFR ( Amer) Est GFR (Non-Af Amer) BUN/Creatinine Ratio Glucose Lactate Calcium Magnesium Total Bilirubin AST ALT Alkaline Phosphatase Troponin I Total Protein Albumin Globulin Albumin/Globulin Ratio Procalcitonin < 0.05 Urine Color Urine Appearance Urine pH Ur Specific [place] Urine Protein Urine Glucose (UA) Urine Ketones Urine Blood Urine Nitrite Urine Bilirubin Urine Urobilinogen Ur Leukocyte Esterase Urine WBC (Auto) Urine RBC (Auto) U Hyaline Cast (Auto) U Epithel Cells (Auto) Urine Bacteria (Auto) COVID-19 Eval Order COVID-19 PCR 10/25/19 10/25/19 10/25/19 20:00 20:15 20:15 WBC RBC Hgb Hct MCV MCH MCHC RDW Std Deviation RDW Coeff of [place] Plt Count MPV Immature Gran % (Auto) Neut % (Auto) Lymph % (Auto) [place] % (Auto) Eos % (Auto) Baso % (Auto) Neut # (Auto) Lymph # (Auto) [place] # (Auto) Eos # (Auto) Baso # (Auto) Immature Gran # (Auto) PT INR APTT PTT Ratio Sodium 138 Potassium 3.9 Chloride 103 Carbon Dioxide 28 Anion Gap 7.0 BUN 9 Creatinine 0.88 Est Cr Clr Drug Dosing 104.1 Est GFR ( Amer) 112.1 Est GFR (Non-Af Amer) 96.7 BUN/Creatinine Ratio 10.7 Glucose 100 H Lactate Calcium 9.4 Magnesium 1.7 L Total Bilirubin 0.7 AST 18 ALT 24 Alkaline Phosphatase 153 H Troponin I Total Protein 7.5 Albumin 3.7 Globulin 3.8 Albumin/Globulin Ratio 1.0 Procalcitonin Urine Color Dark Yellow Urine Appearance Clear Urine pH 7.0 Ur Specific [place] 1.025 Urine Protein Negative Urine Glucose (UA) Negative Urine Ketones Negative Urine Blood Negative Urine Nitrite Negative Urine Bilirubin Negative Urine Urobilinogen Negative Ur Leukocyte Esterase Trace H Urine WBC (Auto) 0 Urine RBC (Auto) 0-4 U Hyaline Cast (Auto) 0 U Epithel Cells (Auto) 0-5 Urine Bacteria (Auto) Negative COVID-19 Eval Order Covid19 Done at [facility] COVID-19 PCR 10/25/19 10/25/19 10/25/19 20:15 20:42 21:34 WBC RBC Hgb Hct MCV MCH MCHC RDW Std Deviation RDW Coeff of [place] Plt Count MPV Immature Gran % (Auto) Neut % (Auto) Lymph % (Auto) [place] % (Auto) Eos % (Auto) Baso % (Auto) Neut # (Auto) Lymph # (Auto) [place] # (Auto) Eos # (Auto) Baso # (Auto) Immature Gran # (Auto) PT INR APTT PTT Ratio Sodium Potassium Chloride Carbon Dioxide Anion Gap BUN Creatinine Est Cr Clr Drug Dosing Est GFR ( Amer) Est GFR (Non-Af Amer) BUN/Creatinine Ratio Glucose Lactate Cancelled 0.6 Calcium Magnesium Total Bilirubin AST ALT Alkaline Phosphatase Troponin I Total Protein Albumin Globulin Albumin/Globulin Ratio Procalcitonin Urine Color Urine Appearance Urine pH Ur Specific [place] Urine Protein Urine Glucose (UA) Urine Ketones Urine Blood Urine Nitrite Urine Bilirubin Urine Urobilinogen Ur Leukocyte Esterase Urine WBC (Auto) Urine RBC (Auto) U Hyaline Cast (Auto) U Epithel Cells (Auto) Urine Bacteria (Auto) COVID-19 Eval Order COVID-19 PCR NEGATIVE 10/25/19 22:33 WBC RBC Hgb Hct MCV MCH MCHC RDW Std Deviation RDW Coeff of [place] Plt Count MPV Immature Gran % (Auto) Neut % (Auto) Lymph % (Auto) [place] % (Auto) Eos % (Auto) Baso % (Auto) Neut # (Auto) Lymph # (Auto) [place] # (Auto) Eos # (Auto) Baso # (Auto) Immature Gran # (Auto) PT INR APTT PTT Ratio Sodium Potassium Chloride Carbon Dioxide Anion Gap BUN Creatinine Est Cr Clr Drug Dosing Est GFR ( Amer) Est GFR (Non-Af Amer) BUN/Creatinine Ratio Glucose Lactate Calcium Magnesium Total Bilirubin AST ALT Alkaline Phosphatase Troponin I Pending Total Protein Albumin Globulin Albumin/Globulin Ratio Procalcitonin Urine Color Urine Appearance Urine pH Ur Specific [place] Urine Protein Urine Glucose (UA) Urine Ketones Urine Blood Urine Nitrite Urine Bilirubin Urine Urobilinogen Ur Leukocyte Esterase Urine WBC (Auto) Urine RBC (Auto) U Hyaline Cast (Auto) U Epithel Cells (Auto) Urine Bacteria (Auto) COVID-19 Eval Order COVID-19 PCR Code Status & VTE Plan Code Status fullecode VTE Prophylaxis Plan VTE Prophylaxis will be ordered: Yes Supervising Physician Co-Signing Physician Notes Attending addendum: I have physically seen this patient, have supervised the medical residents activities, and agree with the H&P unless as otherwise noted. Assessment and Plan: Seizure activity/history of seizure disorder/traumatic brain injury/mild mental retardation and cognitive impairment/cerebellar ataxia/anxiety and depression- Continue lamotrigine, Vimpat, felbamate, gabapentin and primidone. Consult his neurologist Dr. Hernandez. Seizure precautions Trigger most likely is infection pneumonia Pneumonia- Bilateral infiltrates on chest x-ray Lives in a [place] [facility] Continue cefepime 2 g IV every 8 hours Duonebs every 4 hours while awake and every 2 hours when necessary. Continue remaining orders and notations as noted Resident Activity Tracking Resident Involvement: Resident Care Provided Care Provided: Adult Hospital Medicine (1) Fever Fever type: unspecified Qualified Code(s): R50.9 - Fever, unspecified (2) Pneumonia Laterality: bilateral Lung location: lower lobe of lung Pneumonia type: due to unspecified organism Qualified Code(s): J18.9 - Pneumonia, unspecified organism
[2019-10-26] MEDS ORDERED: ACETAMINOPHEN 1,000 MG/100 ML VIAL IV PRN (00:27)
[2019-10-26] MEDS ORDERED: ONDANSETRON INJ 2 MG/ML 2 ML VIAL IV PRN (00:27)
[2019-10-26] MEDS ORDERED: CEFEPIME CONSULT ACTIVE PRN (00:27)
[2019-10-26] MEDS ORDERED: TAMSULOSIN HCL 0.4 MG CAP PO SCH (00:27)
[2019-10-26] MEDS: TAMSULOSIN HCL 0.4 MG CAP PO SCH ×3 (01:05→20:34)
[2019-10-26] MEDS: LACOSAMIDE 50 MG TABLET PO SCH ×3 (01:05→20:33)
[2019-10-26] MEDS: SODIUM CHLORIDE 0.9% 1000ML 1,000 ML IV SCH ×3 (01:06→17:26)
[2019-10-26] MEDS: PROPRANOLOL HCL LA 80 MG CAPCR PO SCH ×3 (01:06→20:34)
--- NOTE | 2019-10-26 03:29 | Billing Data ---
Date of Service October 26, 2019 Coding Level of Care Code 96890 Initial Inpt Care Lvl 3
[2019-10-26] MEDS: CEFEPIME 2,000 MG in SYRINGE 7.5 ML IV SCH ×3 (03:47→20:45)
[2019-10-26 06:03] LABS: Basophils # (auto) 0.01 K/uL (0-0.2); Basophils % (auto) 0.1 %; Eosinophils # (auto) 0.05 K/uL (0-0.5); Eosinophils % (auto) 0.6 %; Hematocrit (blood only) 44.5 % (42-52); Hemoglobin 14.6 g/dL (14.0-18.0); Immature Granulocytes # (auto) 0.01 K/uL (0.00-0.02); Immature Granulocytes % (auto) 0.1 %; Lymphocytes # (auto) 1.02 K/uL (1.2-3.4); Lymphocytes % (auto) 12.7 %; Mean Corpuscular Hemoglobin 32.4 pg (25-34); Mean Corpuscular Hgb Conc 32.8 g/dL (32-36); Mean Corpuscular Volume 98.9 fL (80-100); Monocytes # (auto) 0.98 K/uL (0.11-0.59); Monocytes % (auto) 12.2 %; Neutrophils # (auto) 5.97 K/uL (1.4-6.5); Neutrophils % (auto) 74.3 %; Platelet Count 136 K/uL (130-400); RDW Coefficient of Variation 13.8 % (11.5-14.5); RDW Standard Deviation 49.7 fL (36.4-46.3); White Blood Count 8.04 K/uL (4.8-10.8)
[2019-10-26 06:48] LABS: Albumin Level 3.3 gm/dl (3.4-5.0); BUN Creatinine Ratio 12.6 (10-20); Calcium 8.8 mg/dl (8.5-10.1); Creatinine Clr Calc Pharmacy 106.5 ml/min; Est GFR (African American) 113.1; Est GFR (Non-African American) 97.6; Potassium 4.2 mmol/L (3.5-5.1)
[2019-10-26 06:51] LABS: Albumin Globulin Ratio 0.9 (0.9-2); Bilirubin,Total 0.9 mg/dl (0.2-1); Globulin 3.7 gm/dl (2.5-4.0)
--- NOTE | 2019-10-26 09:48 | XRay Report ---
XR chest 1V portable CLINICAL HISTORY: SEPSIS COMPARISON STUDY: Chest radiograph May 20, 2018. FINDINGS: Lung volumes are diminished. This suggests a hypoventilatory study. There is no pneumothora x. There are bibasilar opacities. There is interstitial prominence. Cardiac silhouette is accentuated . There are cholecystectomy clips. IMPRESSION: Hypoventilatory study with bibasilar opacities and interstitial thickening. The findings may reflect pneumonia or atelectasis. Radiographic follow-up is recommended. ACT 112: Negative or not required by law. Electronically signed by: Francisco Trotter M.D. 10/26/2019 9:47 AM
[2019-10-26] MEDS: CLOBAZAM PO SCH ×2 (09:56→15:05)
[2019-10-26] MEDS: BusPIRone 15 MG TAB PO SCH ×2 (09:57→20:33)
[2019-10-26] MEDS: FELBAMATE PO SCH ×2 (09:57→20:35)
[2019-10-26] MEDS: FLUTICASONE PROPIONATE NA SPR 16 GM BTL NAE SCH (09:58)
[2019-10-26] MEDS: GABAPENTIN 100 MG CAP PO SCH ×3 (09:59→20:34)
[2019-10-26] MEDS: FINASTERIDE 5 MG TAB PO SCH (10:00)
[2019-10-26] MEDS: PRIMIDONE 50 MG TAB PO SCH ×3 (10:00→20:33)
[2019-10-26] MEDS: FLUOXETINE HCL 20 MG CAP PO SCH (10:00)
[2019-10-26] MEDS ORDERED: SODIUM CHLORIDE 0.9% 1000ML 500 ML IV ONE (16:51)
--- NOTE | 2019-10-26 16:52 | Hospitalist Progress Note ---
Date of Service October 26, 2019 Assessment & Plan (1) Pneumonia: bibasilar densities on CXR, atelectasis vs pneumonia given fever and cough, presentation with seizures, will treat for possible pneumonia initially on Cefepime alone, had a fever this afternoon add Zithromax 500mg now and then 250mg daily WBC normal COVID 19 negative on admission complete 5-7 days of antibiotics (2) Fever: per family, sometimes he has fever post ictal use Tylenol for fever broaden out antibiotics for pneumonia with Cefepime and Zithromax MRSA swab negative (3) Seizure: seizure at alf despite taking normal anti-convulsants seizure reportedly lasted 25 minutes prior to arrival in the ED he got 5mg IM Versed today he slept a lot but then woke up to eat lunch having episodes of myoclonic jerking, closes his eyes, stop after less than 10 seconds instructed RN to use Ativan 1mg IV PRN for episodes longer than 30 seconds will get EEG, consult neurology continue Clobazam BID, Felbamate BID, Vimpat BID (4) Hypotension: pressures in high 80's this afternoon will bolus with NSS 500cc continue NSS at 80cc/hr after receiving 125cc/hr since time of admission if pressures improved tomorrow would stop fluids as he is eating and drinking (5) TBI (traumatic brain injury): history of such now with seizure disorder, cognitive impairment, lives in alf (6) Benign essential tremor: Primidone, Propranolol difficult to interpret if he is experiencing increased tremors or brief seizures consult neurology (7) GERD (gastroesophageal reflux disease): (8) BPH (benign prostatic hyperplasia): (9) Anxiety and depression: (10) Cognitive impairment: (11) Seizure disorder: Admission and Anticipated Discharge Date Admission Date: October 25, 2019 Subjective patient slept most of the morning, still acting post ictal with lethargy and some confusion some of this likely his baseline with cognitive impairment he was able to wake up more at lunch and ate his lunch, drank his fluids completely he took his medication he spiked a fever later in the afternoon his father came to visit later in the evening, he noticed some increased tremors in right arm this was evident during my visit as well he was talking, then both of his arms shook and he closed his eyes, lasted about 5 seconds and then we talked again he had no confusion after the episode his father has concerns that it could be seizure activity spoke with RN, if the episodes last longer than 30 seconds then they should give Ativan 1mg IV to look for resolution/improvement will get EEG and consult neurology for input reviewed chart, reviewed labs, WBC normal, Hb normal, Cr normal and electrolytes stable procalcitonin < 0.05 yesterday, COVID was negative yesterday Review of Systems Review of Systems: All systems reviewed & are unremarkable except as noted in Subjective Constitutional: + fever, + chills, + sweats, + fatigue and + weakness Respiratory: + cough; no dyspnea and no dyspnea on exertion Cardiovascular: no chest pain and no edema Neurologic: + generalized weakness, + tremor(s) and + seizure-like activity (possible, periodic episodes of myoclonic jerking, only a few seconds, no confusion) Physical Exam Constitutional: well developed, well nourished, well groomed and + lethargic; no acute distress Eyes: PERRL, conjunctivae normal, anicteric sclerae ENMT: external ear and nose normal, oropharynx normal Neck: trachea midline, no thyromegaly Respiratory: normal respiratory effort and + cough; no respiratory distress and not tachypneic Auscultation: + diminished lung sounds (bases); no crackles, no rales, no rhonchi and no wheezes Cardiovascular: RRR, no murmur, no edema Gastrointestinal (Abdomen): normal bowel sounds, soft, nontender, no hepatosplenomegaly Musculoskeletal: no cyanosis or clubbing, extremities motor strength 5/5 Skin: no rashes, warm and dry Neurologic: normal touch/pain/proprioception, CN's II-XI intact bilaterally and moves all extremities; no focal motor deficits Speech / Cognition: normal speech Motor/Sensory: + tremor and + abnormal movement (periodic myoclonic jerking in arms, lasts a few seconds, closes his eyes) Psychiatric: Orientation: alert, oriented to person and oriented to place; + not oriented to time Lymphatic: no cervical or axillary lymphadenopathy Results & Data Results & Data ([facility]) Vital Signs (Past 12 Hours) Vital Signs Temp Pulse Pulse Resp BP Pulse Ox 10/26/19 16:00 71 10/26/19 15:35 38.0 C H 138 H 19 85/55 L 91 10/26/19 12:10 37.7 C H 63 16 113/71 95 10/26/19 08:00 60 10/26/19 07:05 36.8 C 60 20 109/62 94 Laboratory Results Laboratory Results - last 24 hr 10/25/19 10/25/19 10/25/19 20:00 20:00 20:00 WBC 8.47 RBC 4.72 Hgb 15.2 Hct 45.8 MCV 97.0 MCH 32.2 MCHC 33.2 RDW Std Deviation 48.6 H RDW Coeff of Eunice 13.6 Plt Count 165 MPV 9.2 Immature Gran % (Auto) 0.4 Neut % (Auto) 70.3 Lymph % (Auto) 16.8 Sutter % (Auto) 11.9 Eos % (Auto) 0.5 Baso % (Auto) 0.1 Neut # (Auto) 5.96 Lymph # (Auto) 1.42 Sutter # (Auto) 1.01 H Eos # (Auto) 0.04 Baso # (Auto) 0.01 Immature Gran # (Auto) 0.03 H PT 10.5 INR 1.0 APTT 42.1 H PTT Ratio 1.5 Sodium Potassium Chloride Carbon Dioxide Anion Gap BUN Creatinine Est Cr Clr Drug Dosing Est GFR ( Amer) Est GFR (Non-Af Amer) BUN/Creatinine Ratio Glucose Lactate Calcium Magnesium Total Bilirubin AST ALT Alkaline Phosphatase Troponin I Total Protein Albumin Globulin Albumin/Globulin Ratio Procalcitonin < 0.05 Urine Color Urine Appearance Urine pH Ur Specific Parrish Urine Protein Urine Glucose (UA) Urine Ketones Urine Blood Urine Nitrite Urine Bilirubin Urine Urobilinogen Ur Leukocyte Esterase Urine WBC (Auto) Urine RBC (Auto) U Hyaline Cast (Auto) U Epithel Cells (Auto) Urine Bacteria (Auto) Nasal Screen MRSA (PCR) COVID-19 Eval Order COVID-19 PCR 10/25/19 10/25/19 10/25/19 20:00 20:15 20:15 WBC RBC Hgb Hct MCV MCH MCHC RDW Std Deviation RDW Coeff of Eunice Plt Count MPV Immature Gran % (Auto) Neut % (Auto) Lymph % (Auto) Sutter % (Auto) Eos % (Auto) Baso % (Auto) Neut # (Auto) Lymph # (Auto) Sutter # (Auto) Eos # (Auto) Baso # (Auto) Immature Gran # (Auto) PT INR APTT PTT Ratio Sodium 138 Potassium 3.9 Chloride 103 Carbon Dioxide 28 Anion Gap 7.0 BUN 9 Creatinine 0.88 Est Cr Clr Drug Dosing 104.1 Est GFR ( Amer) 112.1 Est GFR (Non-Af Amer) 96.7 BUN/Creatinine Ratio 10.7 Glucose 100 H Lactate Calcium 9.4 Magnesium 1.7 L Total Bilirubin 0.7 AST 18 ALT 24 Alkaline Phosphatase 153 H Troponin I Total Protein 7.5 Albumin 3.7 Globulin 3.8 Albumin/Globulin Ratio 1.0 Procalcitonin Urine Color Dark Yellow Urine Appearance Clear Urine pH 7.0 Ur Specific Parrish 1.025 Urine Protein Negative Urine Glucose (UA) Negative Urine Ketones Negative Urine Blood Negative Urine Nitrite Negative Urine Bilirubin Negative Urine Urobilinogen Negative Ur Leukocyte Esterase Trace H Urine WBC (Auto) 0 Urine RBC (Auto) 0-4 U Hyaline Cast (Auto) 0 U Epithel Cells (Auto) 0-5 Urine Bacteria (Auto) Negative Nasal Screen MRSA (PCR) COVID-19 Eval Order Covid19 Done at [facility] COVID-19 PCR 10/25/19 10/25/19 10/25/19 20:15 20:42 21:34 WBC RBC Hgb Hct MCV MCH MCHC RDW Std Deviation RDW Coeff of Eunice Plt Count MPV Immature Gran % (Auto) Neut % (Auto) Lymph % (Auto) Sutter % (Auto) Eos % (Auto) Baso % (Auto) Neut # (Auto) Lymph # (Auto) Sutter # (Auto) Eos # (Auto) Baso # (Auto) Immature Gran # (Auto) PT INR APTT PTT Ratio Sodium Potassium Chloride Carbon Dioxide Anion Gap BUN Creatinine Est Cr Clr Drug Dosing Est GFR ( Amer) Est GFR (Non-Af Amer) BUN/Creatinine Ratio Glucose Lactate Cancelled 0.6 Calcium Magnesium Total Bilirubin AST ALT Alkaline Phosphatase Troponin I Total Protein Albumin Globulin Albumin/Globulin Ratio Procalcitonin Urine Color Urine Appearance Urine pH Ur Specific Parrish Urine Protein Urine Glucose (UA) Urine Ketones Urine Blood Urine Nitrite Urine Bilirubin Urine Urobilinogen Ur Leukocyte Esterase Urine WBC (Auto) Urine RBC (Auto) U Hyaline Cast (Auto) U Epithel Cells (Auto) Urine Bacteria (Auto) Nasal Screen MRSA (PCR) COVID-19 Eval Order COVID-19 PCR NEGATIVE 10/25/19 10/26/19 10/26/19 22:33 01:15 05:34 WBC 8.04 RBC 4.50 L Hgb 14.6 Hct 44.5 MCV 98.9 MCH 32.4 MCHC 32.8 RDW Std Deviation 49.7 H RDW Coeff of Eunice 13.8 Plt Count 136 MPV 9.0 Immature Gran % (Auto) 0.1 Neut % (Auto) 74.3 Lymph % (Auto) 12.7 Sutter % (Auto) 12.2 Eos % (Auto) 0.6 Baso % (Auto) 0.1 Neut # (Auto) 5.97 Lymph # (Auto) 1.02 L Sutter # (Auto) 0.98 H Eos # (Auto) 0.05 Baso # (Auto) 0.01 Immature Gran # (Auto) 0.01 PT INR APTT PTT Ratio Sodium Potassium Chloride Carbon Dioxide Anion Gap BUN Creatinine Est Cr Clr Drug Dosing Est GFR ( Amer) Est GFR (Non-Af Amer) BUN/Creatinine Ratio Glucose Lactate Calcium Magnesium Total Bilirubin AST ALT Alkaline Phosphatase Troponin I < 0.015 Total Protein Albumin Globulin Albumin/Globulin Ratio Procalcitonin Urine Color Urine Appearance Urine pH Ur Specific Parrish Urine Protein Urine Glucose (UA) Urine Ketones Urine Blood Urine Nitrite Urine Bilirubin Urine Urobilinogen Ur Leukocyte Esterase Urine WBC (Auto) Urine RBC (Auto) U Hyaline Cast (Auto) U Epithel Cells (Auto) Urine Bacteria (Auto) Nasal Screen MRSA (PCR) Negative COVID-19 Eval Order COVID-19 PCR 10/26/19 05:34 WBC RBC Hgb Hct MCV MCH MCHC RDW Std Deviation RDW Coeff of Eunice Plt Count MPV Immature Gran % (Auto) Neut % (Auto) Lymph % (Auto) Sutter % (Auto) Eos % (Auto) Baso % (Auto) Neut # (Auto) Lymph # (Auto) Sutter # (Auto) Eos # (Auto) Baso # (Auto) Immature Gran # (Auto) PT INR APTT PTT Ratio Sodium 139 Potassium 4.2 Chloride 104 Carbon Dioxide 30 Anion Gap 5.0 BUN 11 Creatinine 0.86 Est Cr Clr Drug Dosing 106.5 Est GFR ( Amer) 113.1 Est GFR (Non-Af Amer) 97.6 BUN/Creatinine Ratio 12.6 Glucose 100 H Lactate Calcium 8.8 Magnesium 2.0 Total Bilirubin 0.9 AST 19 ALT 24 Alkaline Phosphatase 141 H Troponin I Total Protein 7.0 Albumin 3.3 L Globulin 3.7 Albumin/Globulin Ratio 0.9 Procalcitonin Urine Color Urine Appearance Urine pH Ur Specific Parrish Urine Protein Urine Glucose (UA) Urine Ketones Urine Blood Urine Nitrite Urine Bilirubin Urine Urobilinogen Ur Leukocyte Esterase Urine WBC (Auto) Urine RBC (Auto) U Hyaline Cast (Auto) U Epithel Cells (Auto) Urine Bacteria (Auto) Nasal Screen MRSA (PCR) COVID-19 Eval Order COVID-19 PCR Medications Administered Current Inpatient Medications Azithromycin (Azithromycin 250 Mg Tab) 500 mg PO NOW ONE Stop: 10/26/19 16:52 Azithromycin (Azithromycin 250 Mg Tab) 250 mg PO [facility] Stop: 11/03/19 08:59 Buspirone HCl ([facility] 15 Mg Tab) [facility] [place] Stop: 11/25/19 08:59 Last Admin: 10/26/19 09:57 Dose: 15 mg Documented by: Buspirone HCl (Buspirone 15 Mg Tab) 30 mg PO [facility] Stop: 11/25/19 20:59 Clobazam (Clobazam) 1 ea PO BID@0800,1600 [facility] Stop: 11/25/19 07:59 Last Admin: 10/26/19 15:05 Dose: 1 ea Documented by: Felbamate (Felbamate) 1 ea PO BID [facility] Stop: 11/25/19 08:59 Last Admin: 10/26/19 09:57 Dose: 1 ea Documented by: Finasteride (Finasteride 5 Mg Tab) 5 mg PO DAILY [facility] Stop: 11/25/19 08:59 Last Admin: 10/26/19 10:00 Dose: 5 mg Documented by: Fluoxetine HCl (Fluoxetine Hcl 20 Mg Cap) [facility] [place] Stop: 11/25/19 08:59 Last Admin: 10/26/19 10:00 Dose: 20 mg Documented by: Fluticasone Propionate (Fluticasone Propionate Na Spr 16 Gm Btl) 2 sprays [facility] [place] Stop: 11/25/19 08:59 Last Admin: 10/26/19 09:58 Dose: 2 sprays Documented by: Gabapentin (Gabapentin 100 Mg Cap) 100 mg PO TID [facility] Stop: 11/25/19 08:59 Last Admin: 10/26/19 15:06 Dose: 100 mg Documented by: Acetaminophen (Ofirmev) 1,000 mg in 100 mls @ 400 mls/hr IV Q6H PRN PRN Reason: Fever Stop: 10/29/19 00:26 Sodium Chloride (Nss 1000ml) 1,000 mls @ 80 mls/hr IV .[id number] [facility] Stop: 11/25/19 00:26 Last Admin: 10/26/19 10:14 Dose: 125 mls/hr Documented by: Cefepime HCl 2,000 mg/ Syringe 20 mls @ 5.5 mls/min IV Q8H [facility]; Protocol Stop: 11/02/19 03:59 Last Admin: 10/26/19 11:58 Dose: 5.5 mls/min Documented by: Sodium Chloride (Nss 1000ml) 500 mls @ 999 mls/hr IV .Q31M ONE Stop: 10/26/19 17:21 Lacosamide (Lacosamide 50 Mg Tablet) 200 mg PO BID [facility] Stop: 11/25/19 00:26 Last Admin: 10/26/19 10:12 Dose: 200 mg Documented by: Miscellaneous (Lamictal Xr~Order Awaiting Action) 1 ea N/A QS [facility] Stop: 11/25/19 07:59 Last Admin: 10/26/19 16:14 Dose: Not Given Documented by: Miscellaneous Information (Cefepime Consult Active) 1 ea N/A UD PRN PRN Reason: Consult Stop: 11/25/19 00:26 Ondansetron HCl (Ondansetron Inj 2 Mg/Ml 2 Ml Vial) 4 mg IV Q6H PRN PRN Reason: Nausea Stop: 11/25/19 00:26 Primidone (Primidone 50 Mg Tab) 50 mg PO TID [facility] Stop: 11/25/19 08:59 Last Admin: 10/26/19 15:06 Dose: 50 mg Documented by: Propranolol HCl (Propranolol Hcl La 80 Mg Capcr) 80 mg PO BID [facility] Stop: 11/25/19 00:26 Last Admin: 10/26/19 09:59 Dose: 80 mg Documented by: Tamsulosin HCl (Tamsulosin Hcl 0.4 Mg Cap) 0.4 mg PO Q12 [facility] Stop: 11/25/19 00:59 Last Admin: 10/26/19 09:58 Dose: 0.4 mg Documented by: PG Care Time/CCT Total # of Minutes Spent Total Time Spent: 32 Total Time Spent with Patient: Total time spent is greater than 50% in coordination of care (as documented) at patient's floor/unit and/or counseling patient: Coding Level of Care Code 52746 Subseq Hosp Care Lvl 3 Diagnoses Pneumonia J18.9 Laterality: bilateral Lung location: lower lobe of lung Pneumonia type: due to unspecified organism Fever R50.9 Fever type: unspecified Seizure R56.9 Hypotension I95.9 TBI (traumatic brain injury) S06.9X9A Benign essential tremor G25.0 GERD (gastroesophageal reflux disease) K21.9 BPH (benign prostatic hyperplasia) N40.0 Anxiety and depression F41.9; F32.9 Cognitive impairment R41.89 Seizure disorder G40.909 (1) Fever Fever type: unspecified Qualified Code(s): R50.9 - Fever, unspecified (2) Pneumonia Laterality: bilateral Lung location: lower lobe of lung Pneumonia type: due to unspecified organism Qualified Code(s): J18.9 - Pneumonia, unspecified organism
[2019-10-26] MEDS ORDERED: AZITHROMYCIN 250 MG TAB PO ONE (16:55)
[2019-10-26] MEDS ORDERED: LORazepam 1 MG/2 ML VIAL IV PRN (17:43)
[2019-10-27] MEDS: SODIUM CHLORIDE 0.9% 1000ML 1,000 ML IV SCH ×2 (00:09→12:45)
[2019-10-27] MEDS: CEFEPIME 2,000 MG in SYRINGE 7.5 ML IV SCH ×3 (04:43→20:14)
[2019-10-27 06:52] LABS: Basophils # (auto) 0.01 K/uL (0-0.2); Basophils % (auto) 0.2 %; Eosinophils # (auto) 0.04 K/uL (0-0.5); Eosinophils % (auto) 0.8 %; Hematocrit (blood only) 39.6 % (42-52); Hemoglobin 13.4 g/dL (14.0-18.0); Immature Granulocytes # (auto) 0.02 K/uL (0.00-0.02); Immature Granulocytes % (auto) 0.4 %; Lymphocytes # (auto) 1.17 K/uL (1.2-3.4); Lymphocytes % (auto) 23.9 %; Mean Corpuscular Hemoglobin 32.3 pg (25-34); Mean Corpuscular Hgb Conc 33.8 g/dL (32-36); Mean Corpuscular Volume 95.4 fL (80-100); Mean Platelet Volume 8.9 fL (7.4-10.4); Monocytes # (auto) 0.89 K/uL (0.11-0.59); Monocytes % (auto) 18.2 %; Neutrophils # (auto) 2.77 K/uL (1.4-6.5); Neutrophils % (auto) 56.5 %; Platelet Count 115 K/uL (130-400); RDW Coefficient of Variation 13.5 % (11.5-14.5); RDW Standard Deviation 46.8 fL (36.4-46.3); Red Blood Count 4.15 M/uL (4.7-6.1)
[2019-10-27 07:24] LABS: BUN Creatinine Ratio 16.7 (10-20); Calcium 8.5 mg/dl (8.5-10.1); Creatinine Clr Calc Pharmacy 106.5 ml/min; Est GFR (African American) 113.1; Est GFR (Non-African American) 97.6; Potassium 3.6 mmol/L (3.5-5.1)
[2019-10-27] MEDS: TAMSULOSIN HCL 0.4 MG CAP PO SCH ×2 (08:03→20:18)
[2019-10-27] MEDS: PROPRANOLOL HCL LA 80 MG CAPCR PO SCH ×2 (08:03→20:16)
[2019-10-27] MEDS: GABAPENTIN 100 MG CAP PO SCH ×3 (08:03→20:15)
[2019-10-27] MEDS: BusPIRone 15 MG TAB PO SCH ×2 (08:04→20:15)
[2019-10-27] MEDS: FINASTERIDE 5 MG TAB PO SCH (08:04)
[2019-10-27] MEDS: FLUOXETINE HCL 20 MG CAP PO SCH (08:04)
[2019-10-27] MEDS: PRIMIDONE 50 MG TAB PO SCH ×3 (08:04→20:17)
[2019-10-27] MEDS: FLUTICASONE PROPIONATE NA SPR 16 GM BTL NAE SCH (08:05)
[2019-10-27] MEDS: FELBAMATE PO SCH ×2 (08:05→20:24)
[2019-10-27] MEDS: CLOBAZAM PO SCH ×2 (08:06→15:52)
[2019-10-27] MEDS: LACOSAMIDE 50 MG TABLET PO SCH ×2 (08:06→20:17)
--- NOTE | 2019-10-27 09:30 | Electrocardiogram Report ---
Test Reason : Blood Pressure : / mmHG Vent. Rate : 065 BPM Atrial Rate : 065 BPM P-R Int : 172 ms QRS Dur : 096 ms QT Int : 386 ms P-R-T Axes : 037 -17 096 degrees QTc Int : 401 ms Normal sinus rhythm Abnormal ECG When compared with ECG of 06-SEP-2018 14:12, ST now depressed in Anterior leads T wave inversion now evident in Anterolateral leads Confirmed by Aamir Glover ([id number]) on 10/27/2019 9:29:48 AM Referred By: REFERRED SELF Confirmed By:Aamir Glover
--- NOTE | 2019-10-27 14:54 | Hospitalist Progress Note ---
Date of Service October 27, 2019 Assessment & Plan (1) Pneumonia: bibasilar densities on CXR, atelectasis vs pneumonia given fever and cough, presentation with seizures, treating for possible pneumonia initially on Cefepime alone, then spiked a fever and added azithro -continue Cefepime and azithro 250mg daily x 5-7 day course WBC normal COVID 19 negative on admission Overall seems improved now (2) Fever: per family, sometimes he has fever post ictal, now resolved x 24 hrs, could be also from PNA UA negative use Tylenol for fever broadened out antibiotics for pneumonia with Cefepime and Zithromax MRSA swab negative -dc IVFs (3) Seizure: seizure at assisted despite taking normal anti-convulsants seizure reportedly lasted 25 minutes prior to arrival in the ED he got 5mg IM Versed then he slept a lot having episodes of myoclonic jerking, closes his eyes, stop after less than 10 seconds instructed RN to use Ativan 1mg IV PRN for episodes longer than 30 seconds - EEG pending - consult neurology pending continue Clobazam BID, Felbamate BID, Vimpat BID, gabapentin,primidone from home (4) Hypotension: pressures in high 80's on HD#2, now improved with IVFs -dc IVFs is eating and drinking (5) TBI (traumatic brain injury): history of such now with seizure disorder, cognitive impairment, lives in assisted (6) Benign essential tremor: Primidone, Propranolol difficult to interpret if he is experiencing increased tremors or brief seizures consult neurology (7) GERD (gastroesophageal reflux disease): not on meds (8) BPH (benign prostatic hyperplasia): with Ayala in place on admission due to seizure -can dc Ayala -continue FLomax, finasteride trial of void (9) Anxiety and depression: continue fluoxetine, buspar (10) Cognitive impairment: noted supportive care (11) Seizure disorder: as above (12) Abnormal ECG: ECGs with TWIs anterolat leads Troponin neg x 2, no chest pain no further workup at this time could be strain from febrile illness -monitor on tele (13) DVT prophylaxis: SCDs, add Lovenox SQ Dispo-continued stay on PCU Admission and Anticipated Discharge Date Admission Date: October 25, 2019 Subjective Pt feelin gwell. No cough or SOB, no CP. No abd pain or nausea. is eating. Has Ayala in place Tele with SB-NSR rates 50-60s Review of Systems Review of Systems: All systems reviewed & are unremarkable except as noted in HPI & below Physical Exam Constitutional: WD/WN, vitals as above Eyes: + anicteric sclerae Neck: trachea midline, no thyromegaly Respiratory: normal respiratory effort, lungs clear to auscultation Cardiovascular: RRR, no murmur, no edema Chest (Breasts): Chest: normal inspection of chest Gastrointestinal (Abdomen): normal bowel sounds, soft, nontender, no hepatosplenomegaly Musculoskeletal: Extremities: extremities normal to inspection; no cyanosis and no clubbing Skin: no rashes, warm and dry Neurologic: moves all extremities and awake (but drowsy); no focal motor deficits and not confused Motor/Sensory: + tremor and + abnormal movement (flapping hands and jerking movements of arms with intention) Genitourinary: Ayala cath in place draining clear yellow urine Lymphatic: no lymphedema Results & Data Results & Data ([facility]) Vital Signs (Past 12 Hours) Vital Signs Temp Pulse Resp BP Pulse Ox 10/27/19 11:54 36.7 C 62 18 133/62 94 10/27/19 07:52 36.9 C 56 L 20 124/54 L 96 10/27/19 03:06 36.5 C 66 16 111/66 93 Laboratory Results 10/27/19 10/27/19 10/27/19 Range/Units 06:24 06:24 06:24 WBC 4.90 (4.8-10.8) K/uL RBC 4.15 L (4.7-6.1) M/uL Hgb 13.4 L (14.0-18.0) g/dL Hct 39.6 L (42-52) % MCV 95.4 (80-100) fL MCH 32.3 (25-34) pg MCHC 33.8 (32-36) g/dL RDW Std Deviation 46.8 H (36.4-46.3) fL RDW Coeff of Eunice 13.5 (11.5-14.5) % Plt Count 115 L (130-400) K/uL MPV 8.9 (7.4-10.4) fL Immature Gran % (Auto) 0.4 % Neut % (Auto) 56.5 % Lymph % (Auto) 23.9 % Appling % (Auto) 18.2 % Eos % (Auto) 0.8 % Baso % (Auto) 0.2 % Neut # (Auto) 2.77 (1.4-6.5) K/uL Lymph # (Auto) 1.17 L (1.2-3.4) K/uL Appling # (Auto) 0.89 H (0.11-0.59) K/uL Eos # (Auto) 0.04 (0-0.5) K/uL Baso # (Auto) 0.01 (0-0.2) K/uL Immature Gran # (Auto) 0.02 (0.00-0.02) K/uL Sodium 142 (136-145) mmol/L Potassium 3.6 (3.5-5.1) mmol/L Chloride 108 H (98-107) mmol/L Carbon Dioxide 28 (21-32) mmol/L Anion Gap 6.0 (3-11) BUN 14 (7-18) mg/dl Creatinine 0.86 (0.6-1.4) mg/dl Est Cr Clr Drug Dosing 106.5 ml/min Est GFR ( Amer) 113.1 Est GFR (Non-Af Amer) 97.6 BUN/Creatinine Ratio 16.7 (10-20) Glucose 88 (70-99) mg/dl Calcium 8.5 (8.5-10.1) mg/dl Phosphorus 3.0 (2.5-4.9) mg/dl Magnesium 2.0 (1.8-2.4) mg/dl Troponin I < 0.015 (0-0.045) ng/ml PG Care Time/CCT Total # of Minutes Spent Total Time Spent with Patient: Total time spent is greater than 50% in coordination of care (as documented) at patient's floor/unit and/or counseling patient: Coding Level of Care Code 41159 Subseq Hosp Care Lvl 3 Diagnoses Pneumonia J18.9 Laterality: bilateral Lung location: lower lobe of lung Pneumonia type: due to unspecified organism Fever R50.9 Fever type: unspecified Seizure R56.9 Hypotension I95.9 TBI (traumatic brain injury) S06.9X9A Benign essential tremor G25.0 GERD (gastroesophageal reflux disease) K21.9 BPH (benign prostatic hyperplasia) N40.0 Anxiety and depression F41.9; F32.9 Cognitive impairment R41.89 Seizure disorder G40.909 Abnormal ECG R94.31 DVT prophylaxis Z29.9 (1) Pneumonia Laterality: bilateral Lung location: lower lobe of lung Pneumonia type: due to unspecified organism Qualified Code(s): J18.9 - Pneumonia, unspecified organism (2) Fever Fever type: unspecified Qualified Code(s): R50.9 - Fever, unspecified
--- NOTE | 2019-10-27 15:08 | Neurology Consultation ---
Date of Consultation October 27, 2019 Assessment & Plan (1) Seizure: Ayaz Chatman is a 54 yo man w/ PMH of TBI, intellectual disability, severe essential tremor, NIKI, anxiety/depression and ataxic gait who p/t [facility] with prolonged seizure in the setting of pneumonia. # Prolonged seizure: given length of event, would be c/f either status epilepticus vs PNES. He continues to have significant ataxia on examination today similar to what is noted in Dr Hernandez's note from August 2019. He does seem more confused though than what is noted in his last note. - continue current AEDs: clobazam 5mg bid, vimpat 200mg bid, felbamate 600mg bid, lamictal ER 400mg bid, gabapentin 100mg tid, primidone 50mg tid - would check lamictal, primidone/phenobarb and gabapentin levels to ensure he is not supratherapeutic - if events continue, would consider a prolonged 1 hour EEG to try and capture events better - no clear signs of meningitis or encephalitis on exam, defer LP at this time. If he re-spikes a fever despite antibiotics, low threshold for LP with CSF biofire panel - would obtain MRI brain without contrast if able (CTH is an alternative if he will not be able to tolerate the longer study) to r/o stroke and to monitor cerebellum (no cerebellar degeneration noted previously, but last head imaging was over one year ago) # Suspected severe essential tremor vs cerebellar ataxia: - continue home gabapentin 100mg tid and primidone 50mg tid. May be helpful to decrease dosing to gabapentin 200mg bid and primidone 100mg bid (depending on levels) to help with compliance Thank you for this interesting consult. Plan of care discussed with primary team. Please call or text with questions. (2) Fever: (3) Pneumonia: (4) Cognitive impairment: (5) Seizure disorder: History of Present Illness Attending Physician: Paula Cruz MD History of Present Illness Ayaz Chatman is a 54 yo man w/ PMH of TBI, intellectual disability, severe essential tremor, NIKI, anxiety/depression and ataxic gait who p/t [facility] with prolonged seizure in the setting of pneumonia. In the ED, patient was febrile to 38.5, BP 139/85, heart rate 61, respiratory rate 20, satting 92% on room air. Labs notable for WBC 8.47, hemoglobin 15.2, platelets 165, electrolytes within normal, creatinine 0.88, glucose 100, INR 1.0, pro calcitonin less than 0.05, no anion gap, LFTs within normal except for elevated alkaline phosphatase 153, UA no infection, lactate 0.6, COVID 19 PCR negative, troponin negative. Chest x-ray showed bibasilar opacities concerning for pneumonia versus atelectasis. Blood culture has been no growth to date. Urine culture showed no growth. He was given tylenol, IVFs, and started on an antibiotic (cefepime/azithromycin). On examination today, Ayaz was able to tell me he came to the hospital due to his seizure but could not give any further history. He closed his eyes for the majority of the exam but would intermittently follow instructions. He denied any current headache, neck stiffness or new numbness/tingling/weakness (however his ability to give history is impaired). Allergies Allergy/AdvReac Type Severity Reaction Status Date / Time sulfamethoxazole Allergy Intermediate dizziness Verified 10/25/19 21:26 and increase in tremor trimethoprim Allergy Intermediate dizziness Verified 10/25/19 21:27 and increase in tremor Bactrim Allergy Unknown dizziness Verified 10/22/17 13:25 and increase in tremor grapefruit AdvReac Mild INTERACTS Verified 10/25/19 21:27 WITH OTHER MEDS ibuprofen AdvReac Mild avoids Verified 10/25/19 21:28 secondary to reactions with other medications levetiracetam AdvReac Mild AGITATION Verified 10/25/19 21:28 Home Medications Home Medications Medication Instructions Recorded Confirmed Type acetaminophen [Tylenol] 325 mg PO Q6 PRN 11/14/17 10/25/19 History buspirone 15 mg PO QAM 11/14/17 10/25/19 History sodium chloride [Saline Mist] 1 spray INTRANASAL Q3H PRN 02/01/18 10/25/19 History ondansetron HCl 8 mg PO Q8H PRN 03/13/18 10/25/19 History buspirone 30 mg PO HS 05/01/18 10/25/19 History magnesium hydroxide [Milk of 15 ml PO DAILY PRN 10/18/18 10/25/19 History Magnesia] fluoxetine 20 mg capsule 20 mg PO QAM #30 cap 11/27/18 10/25/19 Rx vitamins A,C,X-raus-nuhpns 7,160 2 tab PO DAILY #60 tab 12/05/18 10/25/19 Rx unit-113 mg-100 unit tablet gabapentin 100 mg capsule 100 mg PO TID 30 Days #90 cap 01/21/19 10/25/19 Rx lamotrigine 200 mg tablet,extended 400 mg PO BID 30 Days #120 tab 02/19/19 10/25/19 Rx release 24 hr primidone 50 mg tablet 50 mg PO TID 30 Days #90 tab 03/03/19 10/25/19 Rx carbamide peroxide 6.5 % ear drops 4 drops OTIC (EAR) DAILY #30 ml 03/13/19 10/25/19 Rx finasteride 5 mg tablet 5 mg PO DAILY #90 tab 03/18/19 10/25/19 Rx tamsulosin 0.4 mg capsule 0.4 mg PO Q12H #180 cap 03/18/19 10/25/19 Rx felbamate 600 mg tablet 600 mg PO BID 30 Days #60 tab 05/07/19 10/25/19 Rx lacosamide 200 mg tablet 200 mg PO BID 30 Days #60 tab 05/07/19 10/25/19 Rx fluticasone propionate 50 2 spray INTRANASAL QAM #18.2 ml 07/30/19 10/25/19 Rx mcg/actuation nasal spray,suspension clobazam 10 mg tablet 5 mg PO BID 30 Days #30 tab 08/23/19 10/25/19 Rx propranolol 80 mg PO BID 10/25/19 10/25/19 History sennosides-docusate sodium 1 tab PO TID 10/25/19 10/25/19 History [Senna-S] Patient History Medical History Anxiety and depression Benign essential tremor BPH (benign prostatic hyperplasia) 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 Diffuse traumatic brain injury with loss of consciousness of unspecified duration, subsequent encounter Dysphagia GERD (gastroesophageal reflux disease) Hydronephrosis with ureteral calculus Hyperlipidemia Hypokalemia Inguinal hernia Kidney stone Mild intellectual disabilities Muscle weakness (generalized) Rectal bleed Recurrent depressive disorder Status epilepticus Tegretol toxicity Urinary retention Urinary tract infection Surgical History H/O left inguinal hernia repair H/O lithotripsy History of cholecystectomy Family History Father Myocardial infarction Social History Smoking Status: Never smoker Hx Alcohol Use: No Hx Substance Use: No Preferred Language: Omani Communication Ability: Effective Correctional Counselor/Case Manager Required: No Beliefs That Will Affect Care: None marital status: Single Current Living Situation: Personal Care Facility Current Living Situation Comment: [facility] Feels Safe at Home: Yes Review of Systems Review of Systems: Unobtainable due to cognitive status Exam (Neuro) Physical Exam: General Exam: GEN: NAD, lying in bed. HEENT: No conjunctival injection, no rhinorrhea. CV: RRR, no peripheral edema PULM: Nonlabored respirations on room air. Neuro Exam: MS: Drwsy but easily arousable. Oriented to person, being in a hospital, not date. Speech fluent, +mild dysarthria, no paraphasic errors. Language intact including naming, repetition. Intermittently follows commands. Cognition and memory mildly impaired. Inattentive. No clear neglect. CN: Visual clifford full. Unable to visualize fundi on fundoscopic exam (could not keep eyes open). PERRLA OU. EOMI though could not follow commands to formally assess. Facial sensation intact to LT. Facial muscles full and symmetric. Hearing intact to conversation. Uvula midline with symmetric palatal elevation. Shoulder shrug normal. Tongue midline. MOTOR: Normal bulk and tone. No pronator drift. All extremities antigravity without drift (pt would/could not cooperate with formal testing). +postural and action tremor REFLEXES: 1+ at biceps, triceps, brachioradialis, trace patella and absent Achilles bilaterally. Toes mute bilaterally. SENSORY: Intact to LT without extinction to double simultaneous stimuli. Vibration intact throughout. COORDINATION: + ataxia on [id number] bilaterally. Decreased amplitude of Lisa bilaterally. GAIT: deferred, wheelchair bound at baseline Results & Data ([facility]) Vital Signs (Past 12 Hours) Vital Signs Temp Pulse Resp BP Pulse Ox 10/27/19 11:54 36.7 C 62 18 133/62 94 10/27/19 07:52 36.9 C 56 L 20 124/54 L 96 PG Care Time/CCT Total # of Minutes Spent Total Time Spent with Patient: Total time spent is greater than 50% in coordination of care (as documented) at patient's floor/unit and/or counseling patient: Coding Level of Care Code 90192 Initial Inpt Care Lvl 3 Diagnoses Seizure R56.9 Fever R50.9 Fever type: unspecified Pneumonia J18.9 Laterality: bilateral Lung location: lower lobe of lung Pneumonia type: due to unspecified organism Cognitive impairment R41.89 Seizure disorder G40.909 (1) Fever Fever type: unspecified Qualified Code(s): R50.9 - Fever, unspecified (2) Pneumonia Laterality: bilateral Lung location: lower lobe of lung Pneumonia type: due to unspecified organism Qualified Code(s): J18.9 - Pneumonia, unspecified organism
--- NOTE | 2019-10-27 16:01 | Electroencephalogram ---
EEG Procedure Note Date of Service October 27, 2019 Start / End Times Start Time: 6:03am End Time: 6:23am Referring Physician Paula Cruz History prolonged seizure Home Medication List Home Medications Medication Instructions Recorded Confirmed Type acetaminophen [Tylenol] 325 mg PO Q6 PRN 11/14/17 10/25/19 History buspirone 15 mg PO QAM 11/14/17 10/25/19 History sodium chloride [Saline Mist] 1 spray INTRANASAL Q3H PRN 02/01/18 10/25/19 History ondansetron HCl 8 mg PO Q8H PRN 03/13/18 10/25/19 History buspirone 30 mg PO HS 05/01/18 10/25/19 History magnesium hydroxide [Milk of 15 ml PO DAILY PRN 10/18/18 10/25/19 History Magnesia] fluoxetine 20 mg capsule 20 mg PO QAM #30 cap 11/27/18 10/25/19 Rx vitamins A,C,O-xtvv-ykphxr 7,160 2 tab PO DAILY #60 tab 12/05/18 10/25/19 Rx unit-113 mg-100 unit tablet gabapentin 100 mg capsule 100 mg PO TID 30 Days #90 cap 01/21/19 10/25/19 Rx lamotrigine 200 mg tablet,extended 400 mg PO BID 30 Days #120 tab 02/19/19 10/25/19 Rx release 24 hr primidone 50 mg tablet 50 mg PO TID 30 Days #90 tab 03/03/19 10/25/19 Rx carbamide peroxide 6.5 % ear drops 4 drops OTIC (EAR) DAILY #30 ml 03/13/19 10/25/19 Rx finasteride 5 mg tablet 5 mg PO DAILY #90 tab 03/18/19 10/25/19 Rx tamsulosin 0.4 mg capsule 0.4 mg PO Q12H #180 cap 03/18/19 10/25/19 Rx felbamate 600 mg tablet 600 mg PO BID 30 Days #60 tab 05/07/19 10/25/19 Rx lacosamide 200 mg tablet 200 mg PO BID 30 Days #60 tab 05/07/19 10/25/19 Rx fluticasone propionate 50 2 spray INTRANASAL QAM #18.2 ml 07/30/19 10/25/19 Rx mcg/actuation nasal spray,suspension clobazam 10 mg tablet 5 mg PO BID 30 Days #30 tab 08/23/19 10/25/19 Rx propranolol 80 mg PO BID 10/25/19 10/25/19 History sennosides-docusate sodium 1 tab PO TID 10/25/19 10/25/19 History [Senna-S] Inpatient Medication List Buspirone HCl (Buspirone 15 Mg Tab) 15 mg PO QAM [facility]ENIA Stop: 11/25/19 08:59 Last Admin: 10/27/19 08:04 Dose: 15 mg Documented by: [id number] Admin: 10/26/19 09:57 Dose: 15 mg Documented by: [id number] Buspirone HCl (Buspirone 15 Mg Tab) 30 mg PO HS [facility] Stop: 11/25/19 20:59 Last Admin: 10/26/19 20:33 Dose: 30 mg Documented by: [id number] Clobazam (Clobazam) 1 ea PO BID@0800,1600 [facility] Stop: 11/25/19 07:59 Last Admin: 10/27/19 15:52 Dose: 1 ea Documented by: [id number] Admin: 10/27/19 08:06 Dose: 1 ea Documented by: [id number] Admin: 10/26/19 15:05 Dose: 1 ea Documented by: [id number] Admin: 10/26/19 09:56 Dose: 1 ea Documented by: [id number] Felbamate (Felbamate) 1 ea PO BID [facility] Stop: 11/25/19 08:59 Last Admin: 10/27/19 08:05 Dose: 1 ea Documented by: [id number] Admin: 10/26/19 20:35 Dose: 1 ea Documented by: [id number] Admin: 10/26/19 09:57 Dose: 1 ea Documented by: [id number] Finasteride (Finasteride 5 Mg Tab) 5 mg PO DAILY [facility] Stop: 11/25/19 08:59 Last Admin: 10/27/19 08:04 Dose: 5 mg Documented by: [id number] Admin: 10/26/19 10:00 Dose: 5 mg Documented by: [id number] Fluoxetine HCl (Fluoxetine Hcl 20 Mg Cap) 20 mg PO QAM KENIA Stop: 11/25/19 08:59 Last Admin: 10/27/19 08:04 Dose: 20 mg Documented by: [id number] Admin: 10/26/19 10:00 Dose: 20 mg Documented by: [id number] Fluticasone Propionate (Fluticasone Propionate Na Spr 16 Gm Btl) 2 sprays REINALDO QAM [facility] Stop: 11/25/19 08:59 Last Admin: 10/27/19 08:05 Dose: 2 sprays Documented by: [id number] Admin: 10/26/19 09:58 Dose: 2 sprays Documented by: [id number] Gabapentin (Gabapentin 100 Mg Cap) 100 mg PO TID [facility] Stop: 11/25/19 08:59 Last Admin: 10/27/19 14:39 Dose: 100 mg Documented by: [id number] Admin: 10/27/19 08:03 Dose: 100 mg Documented by: [id number] Admin: 10/26/19 20:34 Dose: 100 mg Documented by: [id number] Admin: 10/26/19 15:06 Dose: 100 mg Documented by: [id number] Admin: 10/26/19 09:59 Dose: 100 mg Documented by: [id number] Cefepime HCl 2,000 mg/ Syringe 20 mls @ 5.5 mls/min IV Q8H [facility]; Protocol Stop: 11/02/19 03:59 Last Admin: 10/27/19 12:15 Dose: 5.5 mls/min Documented by: [id number] Admin: 10/27/19 04:43 Dose: 5.5 mls/min Documented by: [id number] Admin: 10/26/19 20:45 Dose: 5.5 mls/min Documented by: [id number] Admin: 10/26/19 11:58 Dose: 5.5 mls/min Documented by: [id number] Admin: 10/26/19 03:47 Dose: 5.5 mls/min Documented by: [id number] Lorazepam (Ativan) 1 mg in 2 mls @ 0.5 mls/min IV UD PRN PRN Reason: seizure Stop: 11/25/19 17:42 Last Admin: 10/27/19 00:09 Dose: 0.5 mls/min Documented by: [id number] Lacosamide (Lacosamide 50 Mg Tablet) 200 mg PO BID [facility] Stop: 11/25/19 00:26 Last Admin: 10/27/19 08:06 Dose: 200 mg Documented by: [id number] Admin: 10/26/19 20:33 Dose: 200 mg Documented by: [id number] Admin: 10/26/19 10:12 Dose: 200 mg Documented by: [id number] Admin: 10/26/19 01:05 Dose: 200 mg Documented by: [id number] Miscellaneous (Lamictal Xr~Order Awaiting Action) 1 ea N/A QS [facility] Stop: 11/25/19 07:59 Last Admin: 10/26/19 21:55 Dose: Not Given Documented by: [id number] Admin: 10/26/19 16:14 Dose: Not Given Documented by: [id number] Admin: 10/26/19 08:09 Dose: Not Given Documented by: [id number] Primidone (Primidone 50 Mg Tab) 50 mg PO TID [facility] Stop: 11/25/19 08:59 Last Admin: 10/27/19 14:38 Dose: 50 mg Documented by: [id number] Admin: 10/27/19 08:04 Dose: 50 mg Documented by: [id number] Admin: 10/26/19 20:33 Dose: 50 mg Documented by: [id number] Admin: 10/26/19 15:06 Dose: 50 mg Documented by: [id number] Admin: 10/26/19 10:00 Dose: 50 mg Documented by: [id number] Propranolol HCl (Propranolol Hcl La 80 Mg Capcr) 80 mg PO BID [facility] Stop: 11/25/19 00:26 Last Admin: 10/27/19 08:03 Dose: 80 mg Documented by: [id number] Admin: 10/26/19 20:34 Dose: 80 mg Documented by: [id number] Admin: 10/26/19 09:59 Dose: 80 mg Documented by: [id number] Admin: 10/26/19 01:06 Dose: 80 mg Documented by: [id number] Tamsulosin HCl (Tamsulosin Hcl 0.4 Mg Cap) 0.4 mg PO Q12 [facility] Stop: 11/25/19 00:59 Last Admin: 10/27/19 08:03 Dose: 0.4 mg Documented by: [id number] Admin: 10/26/19 20:34 Dose: 0.4 mg Documented by: [id number] Admin: 10/26/19 09:58 Dose: 0.4 mg Documented by: [id number] Admin: 10/26/19 01:05 Dose: 0.4 mg Documented by: [id number] Discontinued Medications Azithromycin (Azithromycin 250 Mg Tab) 500 mg PO NOW ONE Stop: 10/26/19 16:56 Last Admin: 10/26/19 17:56 Dose: 500 mg Documented by: [id number] Sodium Chloride (Nss 1000ml) 1,000 mls @ 999 mls/hr IV .Q1H1M [facility]ENIA Stop: 10/25/19 21:00 Last Infusion: 10/25/19 21:38 Dose: 0 mls/hr Documented by: [id number] Admin: 10/25/19 20:21 Dose: 999 mls/hr Documented by: [id number] Cefepime HCl (Maxipime) 2,000 mg in 20 mls @ 5 mls/min IV NOW STA; Protocol Stop: 10/25/19 19:57 Last Admin: 10/25/19 20:20 Dose: 5 mls/min Documented by: [id number] Acetaminophen (Ofirmev) 1,000 mg in 100 mls @ 400 mls/hr IV NOW STA Stop: 10/25/19 20:08 Last Infusion: 10/25/19 21:38 Dose: 0 mls/hr Documented by: [id number] Admin: 10/25/19 20:21 Dose: 400 mls/hr Documented by: [id number] Magnesium Sulfate/Dextrose (Magnesium Sulfate / D5w) 1 gm in 100 mls @ 100 mls/hr IV NOW STA Stop: 10/25/19 21:46 Last Infusion: 10/25/19 22:43 Dose: 0 mls/hr Documented by: [id number] Admin: 10/25/19 21:45 Dose: 100 mls/hr Documented by: [id number] Sodium Chloride (Nss 1000ml) 1,000 mls @ 80 mls/hr IV .[id number] [facility]ENIA Stop: 11/25/19 00:26 Last Admin: 10/27/19 12:45 Dose: 80 mls/hr Documented by: [id number] Infusion: 10/27/19 12:45 Dose: 0 mls/hr Documented by: [id number] Admin: 10/27/19 00:09 Dose: 80 mls/hr Documented by: [id number] Infusion: 10/27/19 00:09 Dose: 80 mls/hr Documented by: [id number] Admin: 10/26/19 17:26 Dose: 80 mls/hr Documented by: [id number] Infusion: 10/26/19 17:26 Dose: 125 mls/hr Documented by: [id number] Admin: 10/26/19 10:14 Dose: 125 mls/hr Documented by: [id number] Infusion: 10/26/19 09:06 Dose: 125 mls/hr Documented by: [id number] Admin: 10/26/19 01:06 Dose: 125 mls/hr Documented by: [id number] Sodium Chloride (Nss 1000ml) 500 mls @ 999 mls/hr IV .Q31M ONE Stop: 10/26/19 17:21 Last Infusion: 10/26/19 17:27 Dose: 0 mls/hr Documented by: [id number] Admin: 10/26/19 16:50 Dose: 999 mls/hr Documented by: [id number] Tamsulosin HCl (Tamsulosin Hcl 0.4 Mg Cap) 0.4 mg PO Q12H [facility]IA Stop: 11/25/19 00:26 Last Admin: 10/26/19 00:51 Dose: Not Given Documented by: [id number] Description This is a 21 electrode EEG with a single channel dedicated to limited EKG. The electrodes were placed in accordance with the International 10-20 system. History: prolonged seizure like activity Rx: clobazam, felbamate, vimpat, lamictal, primidone, prozac, buspirone Start/Stop: 6:03am/6:23am Attending reading: Leandra Branch EEG Description: EEG background: Background was intermixed 6-7 Hz theta slowing with overriding alpha rhythm. No well formed posterior dominant rhythm was observed. The EEG is continuous. There is variability and reactivity present. Activation and reactivity: Photic stimulation performed without any abnormalities noted. No photic driving observed. Hyperventilation was not performed. Sleep: Patient was asleep for the majority of the record. Stages I and II of sleep were recorded with normal vertex waves and sleep spindles noted. Epileptiform discharges: No epileptiform discharges were observed. Rhythmic and periodic patterns: None Seizures: None Impression: This was a mildly abnormal awake and asleep EEG given generalized slowing consistent with known underlying mild encephalopathy at baseline. No seizures or epileptiform discharges were seen. [facility] EEG Procedure Codes Indication for Procedure (1) Seizure: Neurology Neurology: 66840 EEG include record awake & sleepy
[2019-10-27] MEDS: ENOXAPARIN INJ 40 MG/0.4 ML SYR SQ SCH (20:19)
[2019-10-27] MEDS: AZITHROMYCIN 250 MG TAB PO SCH (20:30)
[2019-10-28] MEDS: CEFEPIME 2,000 MG in SYRINGE 7.5 ML IV SCH ×2 (03:12→12:02)
[2019-10-28 07:11] LABS: Basophils # (auto) 0.02 K/uL (0-0.2); Basophils % (auto) 0.4 %; Eosinophils # (auto) 0.06 K/uL (0-0.5); Eosinophils % (auto) 1.3 %; Hematocrit (blood only) 41.9 % (42-52); Hemoglobin 13.9 g/dL (14.0-18.0); Immature Granulocytes # (auto) 0.01 K/uL (0.00-0.02); Immature Granulocytes % (auto) 0.2 %; Lymphocytes # (auto) 1.16 K/uL (1.2-3.4); Lymphocytes % (auto) 25.2 %; Mean Corpuscular Hgb Conc 33.2 g/dL (32-36); Mean Corpuscular Volume 96.5 fL (80-100); Mean Platelet Volume 9.1 fL (7.4-10.4); Monocytes # (auto) 0.52 K/uL (0.11-0.59); Monocytes % (auto) 11.3 %; Neutrophils # (auto) 2.83 K/uL (1.4-6.5); Neutrophils % (auto) 61.6 %; Platelet Count 131 K/uL (130-400); RDW Coefficient of Variation 13.5 % (11.5-14.5); RDW Standard Deviation 48.1 fL (36.4-46.3); Red Blood Count 4.34 M/uL (4.7-6.1)
[2019-10-28 07:38] LABS: BUN Creatinine Ratio 17.5 (10-20); Calcium 9.2 mg/dl (8.5-10.1); Creatinine Clr Calc Pharmacy 111.7 ml/min; Est GFR (African American) 115.4; Est GFR (Non-African American) 99.6; Potassium 3.9 mmol/L (3.5-5.1)
[2019-10-28] MEDS: BusPIRone 15 MG TAB PO SCH ×2 (08:03→20:09)
[2019-10-28] MEDS: CLOBAZAM PO SCH ×2 (08:03→15:43)
[2019-10-28] MEDS: FLUTICASONE PROPIONATE NA SPR 16 GM BTL NAE SCH (08:04)
[2019-10-28] MEDS: FELBAMATE PO SCH ×2 (08:04→20:10)
[2019-10-28] MEDS: TAMSULOSIN HCL 0.4 MG CAP PO SCH ×2 (08:04→20:09)
[2019-10-28] MEDS: PROPRANOLOL HCL LA 80 MG CAPCR PO SCH ×2 (08:05→20:10)
[2019-10-28] MEDS: PRIMIDONE 50 MG TAB PO SCH ×3 (08:06→20:09)
[2019-10-28] MEDS: FINASTERIDE 5 MG TAB PO SCH (08:06)
[2019-10-28] MEDS: FLUOXETINE HCL 20 MG CAP PO SCH (08:07)
[2019-10-28] MEDS: LACOSAMIDE 50 MG TABLET PO SCH ×2 (08:07→20:10)
[2019-10-28] MEDS: GABAPENTIN 100 MG CAP PO SCH ×2 (09:09→13:25)
[2019-10-28] MEDS ORDERED: lamoTRIgine 100 MG TAB PO SCH (09:45)
[2019-10-28] MEDS: lamoTRIgine 100 MG TAB PO SCH ×2 (10:04→20:10)
[2019-10-28] MEDS ORDERED: LORazepam 1 MG/2 ML VIAL IV STA (11:49)
--- NOTE | 2019-10-28 11:59 | Hospitalist Progress Note ---
Date of Service October 28, 2019 Assessment & Plan (1) Pneumonia: bibasilar densities on CXR, atelectasis vs pneumonia on admission given fever and cough, presentation with seizures, treating for possible pneumonia initially on Cefepime alone, then spiked a fever and added azithro -continue Cefepime and azithro 250mg daily x 5-7 day course WBC normal Remains afebrile since admission, no cough now, no hypoxia, no SOB, PCT today is normal COVID 19 negative on admission Overall seems improved now -check CXR 2 view today -consider de-escalation of abx depending on imaging (2) Fever: per family, sometimes he has fever post ictal, now resolved x 24 hrs, could be also from PNA UA negative None since day 1 use Tylenol for fever -continue antibiotics for pneumonia with Cefepime and Zithromax MRSA swab negative (3) Seizure: [facility] at [facility] despite taking normal anti-convulsants seizure reportedly lasted 25 minutes prior to arrival - he got 5mg IM x 2 by EMS of [facility] then he slept a lot having episodes of myoclonic jerking, closes his eyes, stop after less than 10 seconds instructed RN to use Ativan 1mg IV PRN for episodes longer than 30 seconds - EEG neg for sz - consult neurology appreciated continue Clobazam BID, Felbamate BID, Vimpat BID, gabapentin,primidone from home Lamictal XR needs to be brought in from home--> called to ask father to bring in and no answer-for now will replace with Lamictal IR 400mg bid (4) Hypotension: pressures in high 80's on HD#2, now improved with IVFs -dcd IVFs is eating and drinking (5) TBI (traumatic brain injury): history of such now with seizure disorder, cognitive impairment, [facility] in [facility] (6) Benign essential tremor: Primidone, Propranolol difficult to interpret if he is experiencing increased tremors or brief seizures consult neurology appreciated (7) GERD (gastroesophageal reflux disease): not on meds (8) BPH (benign prostatic hyperplasia): with Ayala in place on admission due to seizure -can dc Ayala today -continue FLomax, finasteride trial of void (9) Anxiety and depression: continue fluoxetine, buspar (10) Cognitive impairment: noted supportive care (11) Seizure disorder: as above (12) Abnormal ECG: ECGs with TWIs anterolat leads Troponin neg x 2, no chest pain no further workup at this time could be strain from febrile illness -monitored on tele and no abnl rhythms (13) DVT prophylaxis: SCDs, Lovenox SQ Dispo-continued stay on PCU but if MRI ok may transfer to med/surg later today Admission and Anticipated Discharge Date Admission Date: October 25, 2019 Subjective Pt has no complaints. Denies cough or SOB. No nausea or abd pain. No reported seizure activity overnight, seems alert and somewhat conversive, mild oconfusion. Tele with SB, questionable Afib as per tech but I believe it is interference from tremors. Review of Systems Review of Systems: All systems reviewed & are unremarkable except as noted in HPI & below Physical Exam Constitutional: WD/WN, vitals as above Eyes: + anicteric sclerae ENMT: external ear and nose normal, oropharynx normal Neck: trachea midline, no thyromegaly Respiratory: normal respiratory effort, lungs clear to auscultation Cardiovascular: RRR, no murmur, no edema Chest (Breasts): Chest: normal inspection of chest Gastrointestinal (Abdomen): normal bowel sounds, soft, nontender, no hepatosplenomegaly Musculoskeletal: Extremities: extremities normal to inspection; no cyanosis and no clubbing Skin: no rashes, warm and dry Neurologic: moves all extremities; no focal motor deficits Motor/Sensory: + tremor (truncal ataxia with sitting up) Lymphatic: no lymphedema Results & Data Results & Data ([facility]) Vital Signs (Past 12 Hours) Vital Signs Temp Pulse Pulse Resp BP Pulse Ox 10/28/19 07:50 36.8 C 60 16 118/53 L 99 10/28/19 03:06 36.7 C 57 L 20 123/77 93 10/28/19 00:44 57 L Laboratory Results 10/28/19 10/28/19 10/28/19 Range/Units 11:01 06:45 06:45 WBC (4.8-10.8) K/uL RBC (4.7-6.1) M/uL Hgb (14.0-18.0) g/dL Hct (42-52) % MCV (80-100) fL MCH (25-34) pg MCHC (32-36) g/dL RDW Std Deviation (36.4-46.3) fL RDW Coeff of Eunice (11.5-14.5) % Plt Count (130-400) K/uL MPV (7.4-10.4) fL Immature Gran % (Auto) % Neut % (Auto) % Lymph % (Auto) % [place] % (Auto) % Eos % (Auto) % Baso % (Auto) % Neut # (Auto) (1.4-6.5) K/uL Lymph # (Auto) (1.2-3.4) K/uL [place] # (Auto) (0.11-0.59) K/uL Eos # (Auto) (0-0.5) K/uL Baso # (Auto) (0-0.2) K/uL Immature Gran # (Auto) (0.00-0.02) K/uL Sodium (136-145) mmol/L Potassium (3.5-5.1) mmol/L Chloride (98-107) mmol/L Carbon Dioxide (21-32) mmol/L Anion Gap (3-11) BUN (7-18) mg/dl Creatinine (0.6-1.4) mg/dl Est Cr Clr Drug Dosing ml/min Est GFR ( Amer) Est GFR (Non-Af Amer) BUN/Creatinine Ratio (10-20) Glucose (70-99) mg/dl Calcium (8.5-10.1) mg/dl Magnesium (1.8-2.4) mg/dl Procalcitonin (0-0.5) ng/ml Primidone Pending Gabapentin Pending Phenobarbital 7.0 L (15-40) mcg/mL Phenobarb (Primidon Met Pending 10/28/19 10/28/19 10/28/19 Range/Units 06:45 06:45 06:45 WBC 4.60 L (4.8-10.8) K/uL RBC 4.34 L (4.7-6.1) M/uL Hgb 13.9 L (14.0-18.0) g/dL Hct 41.9 L (42-52) % MCV 96.5 (80-100) fL MCH 32.0 (25-34) pg MCHC 33.2 (32-36) g/dL RDW Std Deviation 48.1 H (36.4-46.3) fL RDW Coeff of Eunice 13.5 (11.5-14.5) % Plt Count 131 (130-400) K/uL MPV 9.1 (7.4-10.4) fL Immature Gran % (Auto) 0.2 % Neut % (Auto) 61.6 % Lymph % (Auto) 25.2 % [place] % (Auto) 11.3 % Eos % (Auto) 1.3 % Baso % (Auto) 0.4 % Neut # (Auto) 2.83 (1.4-6.5) K/uL Lymph # (Auto) 1.16 L (1.2-3.4) K/uL [place] # (Auto) 0.52 (0.11-0.59) K/uL Eos # (Auto) 0.06 (0-0.5) K/uL Baso # (Auto) 0.02 (0-0.2) K/uL Immature Gran # (Auto) 0.01 (0.00-0.02) K/uL Sodium 140 (136-145) mmol/L Potassium 3.9 (3.5-5.1) mmol/L Chloride 106 (98-107) mmol/L Carbon Dioxide 31 (21-32) mmol/L Anion Gap 3.0 (3-11) BUN 14 (7-18) mg/dl Creatinine 0.82 (0.6-1.4) mg/dl Est Cr Clr Drug Dosing 111.7 ml/min Est GFR ( Amer) 115.4 Est GFR (Non-Af Amer) 99.6 BUN/Creatinine Ratio 17.5 (10-20) Glucose 86 (70-99) mg/dl Calcium 9.2 (8.5-10.1) mg/dl Magnesium 2.0 (1.8-2.4) mg/dl Procalcitonin < 0.05 (0-0.5) ng/ml Primidone Gabapentin Phenobarbital (15-40) mcg/mL Phenobarb (Primidon Met PG Care Time/CCT Total # of Minutes Spent Total Time Spent with Patient: Total time spent is greater than 50% in coordination of care (as documented) at patient's floor/unit and/or counseling patient: Coding Level of Care Code 40825 Subseq Hosp Care Lvl 3 Diagnoses Pneumonia J18.9 Laterality: bilateral Lung location: lower lobe of lung Pneumonia type: due to unspecified organism Fever R50.9 Fever type: unspecified Seizure R56.9 Hypotension I95.9 TBI (traumatic brain injury) S06.9X9A Benign essential tremor G25.0 GERD (gastroesophageal reflux disease) K21.9 BPH (benign prostatic hyperplasia) N40.0 Anxiety and depression F41.9; F32.9 Cognitive impairment R41.89 Seizure disorder G40.909 Abnormal ECG R94.31 DVT prophylaxis Z29.9 (1) Fever Fever type: unspecified Qualified Code(s): R50.9 - Fever, unspecified (2) Pneumonia Laterality: bilateral Lung location: lower lobe of lung Pneumonia type: due to unspecified organism Qualified Code(s): J18.9 - Pneumonia, unspecified organism
--- NOTE | 2019-10-28 12:55 | Magnetic Resonance Report ---
MRI OF THE BRAIN WITHOUT CONTRAST CLINICAL HISTORY: seizures COMPARISON STUDY: Noncontrast head CT dated 09/06/2018, MRI the brain dated 01/12/2014 FINDINGS: Sagittal T1, axial diffusion, proton density and T2 weighted axial, coronal FLAIR, and axial T1-weigh rigo images were acquired. No intra or extra-axial mass lesions are visualized Axial diffusion-weighted images reveal no evidence of acute or subacute infarction. There is no evidence of ventricular dilatation. Proton density T2-weighted and FLAIR images reveal no significant intraparenchymal signal abnormaliti es. There are no abnormal flow voids. The hippocampal formations appear symmetric. There is bilateral maxillary sinus mucosal thickening left greater than right. There is left ethmoid sinus mucosal thickening. There is left frontal sinus mucosal thickening. IMPRESSION: 1. Paranasal sinus disease 2. No acute intracranial findings 3. No evidence of acute or subacute infarction 4. No evidence of intracranial mass ACT 112: Negative or not required by law. Electronically signed by: Terrence Liang M.D. 10/28/2019 12:53 PM
--- NOTE | 2019-10-28 13:03 | XRay Report ---
TWO VIEW CHEST CLINICAL HISTORY: Follow-up pneumonia. FINDINGS: AP and lateral chest radiographs are compared to study dated 10/25/2019. Correlation is made with chest CT dated 08/22/2017. The heart is mildly enlarged. The pulmonary vasculature is noncongest ed. I basilar opacities likely represent atelectasis. No airspace consolidation or pleural effusion i s identified. There is no pneumothorax. The skeletal structures are osteopenic. The bony thorax appea rs intact. Cholecystectomy clips are noted in the upper abdomen. IMPRESSION: 1. Mild cardiac enlargement without radiographic evidence of congestive failure. 2. Dependent airspace opacities likely represent atelectasis. Clinical correlation will be required. ACT 112: Negative or not required by law. Electronically signed by: José Luis Major M.D. 10/28/2019 1:02 PM
--- NOTE | 2019-10-28 13:26 | Neurology Progress Note ---
Date of Service October 28, 2019 Assessment & Plan (1) Seizure: Ayaz Chatman is a 54 yo man w/ PMH of TBI, intellectual disability, severe essential tremor, NIKI, anxiety/depression and ataxic gait who p/t [facility] [place] with prolonged seizure in the setting of pneumonia. # Prolonged seizure: given length of event, would be c/f either status epilepticus vs PNES. He continues to have significant ataxia on examination today similar to what is noted in Dr Hernandez's note from August 2019. Overall myoclonus stable. 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 - continue current AEDs: clobazam 5mg bid, vimpat 200mg bid, felbamate 600mg bid, lamictal IR 400mg bid, gabapentin 100mg tid, primidone 50mg tid - would check primidone/phenobarb and gabapentin levels are pending - if events continue, would consider a prolonged 1 hour EEG to try and capture events better - no clear signs of meningitis or encephalitis on exam, defer LP at this time. If he re-spikes a fever despite antibiotics, low threshold for LP with CSF biofire panel - would strongly consider discontinuing gabapentin with a slow wean given the c/f PME - would also strongly consider cross-titrating to briviact and stopping lamictal as this often worsens myoclonus - could consider outpatient PME panel if this helps to direct therapy. Would strongly consider referral to [facility] or [facility] epileptologist for further management. # Suspected severe essential tremor vs cerebellar ataxia: - continue home gabapentin 100mg tid and primidone 50mg tid. May be helpful to decrease dosing to gabapentin 200mg bid and primidone 100mg bid (depending on levels) to help with compliance Thank you for this interesting consult. Plan of care discussed with primary team. Please call or text with questions. 60 minutes was spent [id number] with patient and extensive chart review to determine prior workup/treatment, with more than 50% spent on counseling/coordination of care. Admission and Anticipated Discharge Date Admission Date: October 25, 2019 Subjective NAEs overnight. Reports that he has increased tiredness today but voiced no other complaints. Reviewed prior EMR notes in [employer]. Has been seeing Dr Hernandez since at least 2000. 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b), and longstanding tremors/myoclonus. Was on propranolol at some point for tremor, stopped due to orthostasis. Father also has a tremor. Tremors started to get worse in 2012 per documentation. He was seen by Dr Viramontes at [facility] [place] who thought that his overall picture given cognitive impairment since childhood, mixed tremor and significant myoclonus would be more c/w a PME. Recommended to stop tegretol and gabapentin, and consider starting keppra, depakote and/or standing benzodiazepine. Also recommended to see an epilepsy specialist given this concern. Did finally see an epileptologist in August 2015, told that he might have generalized epilepsy, was not a candidate for DBS for his tremors. Saw Dr Haley in 2015 also, diagnosed with spasmodic torticollis and rubral tremor, recommended to start botox, use weighted utensils, consider primidone and possibly FUS or DBS. His current medications include: felbamate 600mg bid (was on tid dosing but had ataxia/drowsiness, as well as toxic levels), lamictal ER 400mg bid (initially started lamictal in 2013), gabapentin 100mg tid (started in 04/2013 for tremor), vimpat 200mg bid (started in 2014) He has previously tried: tegretol (worsening myoclonus), topamax (kidney stones), klonopin (sedation), depakote (not tried due to tremors), keppra (agitation/irritability), phenobarbital (side effects) Most recent EEG (10/2019): mild generalized theta range slowing, no clear epileptiform discharges Prior MRI brain: 10/27/19, independently reviewed, showed mild lateral cerebellar atrophy, otherwise normal sleep Prior EMU stay: Y, September 2015, showed possible right hemispheric onset, also showed intermittent diffuse slowing and generalized epileptiform discharges. Possible diagnosis of generalized epilepsy. Seizure risk factors: Endorses: intellectual disability as a child, history of epilepsy as a child Denies: , complications, NICU stay, history of meningitis or encephalitis, recurrent TBI with loss of consciousness, family history of epilepsy, history of febrile seizures, history of stroke or brain malformation, congenital epilepsy syndrome, history of drug or alcohol abuse Seizure types: 1) Absence/starring spells 2) GTCs with ictal cry 3) Myoclonic seizures Review of Systems Review of Systems: 10 point review of systems completed and negative except as in HPI. Results & Data ([facility]) Vital Signs (Past 12 Hours) Vital Signs Temp Pulse Resp BP Pulse Ox 10/28/19 12:11 36.7 C 82 16 122/61 98 10/28/19 07:50 36.8 C 60 16 118/53 L 99 10/28/19 03:06 36.7 C 57 L 20 123/77 93 Exam (Neuro) Physical Exam: General Exam: GEN: NAD, lying in bed. HEENT: No conjunctival injection, no rhinorrhea. CV: RRR, no peripheral edema PULM: Nonlabored respirations on room air. Neuro Exam: MS: Drwsy but easily arousable. Oriented to person, being in a hospital, not date. Speech fluent, +mild dysarthria, no paraphasic errors. Language intact including naming, repetition. Intermittently follows commands. Cognition and memory mildly impaired. Inattentive. No clear neglect. CN: Visual clifford full. Unable to visualize fundi on fundoscopic exam (could not keep eyes open). PERRLA OU. EOMI though could not follow commands to formally assess. Facial sensation intact to LT. Facial muscles full and symmetric. Hearing intact to conversation. Uvula midline with symmetric palatal elevation. Shoulder shrug normal. Tongue midline. MOTOR: Normal bulk and tone. No pronator drift. All extremities antigravity wi thout drift (pt would/could not cooperate with formal testing). +mild action tremor, with frequent myoclonic jerks. REFLEXES: 1+ at biceps, triceps, brachioradialis, trace patella and absent Achilles bilaterally. Toes mute bilaterally. SENSORY: Intact to LT without extinction to double simultaneous stimuli. Vibration intact throughout. COORDINATION: + ataxia on [id number] bilaterally. Decreased amplitude of Lisa bilaterally. GAIT: deferred, wheelchair bound at baseline PG Care Time/CCT Total # of Minutes Spent Total Time Spent with Patient: Total time spent is greater than 50% in coordination of care (as documented) at patient's floor/unit and/or counseling patient: Coding Level of Care Code 94385 Subseq Hosp Care Lvl 3 Diagnoses Seizure R56.9
[2019-10-28] MEDS: AZITHROMYCIN 250 MG TAB PO SCH (17:21)
[2019-10-28] MEDS ORDERED: MAGNESIUM HYDROXIDE SUSP 30 ML UDC PO PRN (17:56)
[2019-10-28] MEDS: ENOXAPARIN INJ 40 MG/0.4 ML SYR SQ SCH (20:11)
[2019-10-28] MEDS: DOCUSATE SODIUM/SENNA 50/8.6MG TAB PO SCH (20:16)
[2019-10-29] MEDS: FLUOXETINE HCL 20 MG CAP PO SCH (08:22)
[2019-10-29] MEDS: FINASTERIDE 5 MG TAB PO SCH (08:22)
[2019-10-29] MEDS: TAMSULOSIN HCL 0.4 MG CAP PO SCH ×2 (08:23→20:18)
[2019-10-29] MEDS: PROPRANOLOL HCL LA 80 MG CAPCR PO SCH ×2 (08:23→20:18)
[2019-10-29] MEDS: BusPIRone 15 MG TAB PO SCH ×2 (08:23→20:17)
[2019-10-29] MEDS: PRIMIDONE 50 MG TAB PO SCH ×3 (08:23→20:22)
[2019-10-29] MEDS: LACOSAMIDE 50 MG TABLET PO SCH ×2 (08:23→20:22)
[2019-10-29] MEDS: lamoTRIgine 100 MG TAB PO SCH ×2 (08:24→20:19)
[2019-10-29] MEDS: FLUTICASONE PROPIONATE NA SPR 16 GM BTL NAE SCH (08:24)
[2019-10-29] MEDS: FELBAMATE PO SCH ×2 (08:25→20:23)
[2019-10-29] MEDS: CLOBAZAM PO SCH ×2 (08:25→16:41)
[2019-10-29] MEDS: DOCUSATE SODIUM/SENNA 50/8.6MG TAB PO SCH ×3 (08:34→20:23)
--- NOTE | 2019-10-29 15:40 | Neurology Progress Note ---
Date of Service October 29, 2019 Assessment & Plan (1) Seizure: Ayaz Chatman is a 54 yo man w/ PMH of TBI, intellectual disability, severe essential tremor, NIKI, anxiety/depression and ataxic gait who p/t [facility] with prolonged seizure in the setting of pneumonia. # Prolonged seizure: He continues to have significant ataxia on examination today similar to what is noted in Dr Hernandez's note from August 2019. Overall myoclonus stable. 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 Given both tremor and myoclonic seizures, would recommend weaning off of vimpat as sodium channel agents are generally avoided in patients with myoclonic epilepsy (https://www.ncbi.nlm.nih.gov/pmc/articles/ZPI1729623/). Would then consider weaning off of lamictal to see if this improves myoclonus/ataxia/tremors (could restart if no improvement noted and seizures worsen). - continue current AEDs: clobazam 5mg bid, felbamate 600mg bid, lamictal IR 400mg bid, primidone 50mg tid - wean down to vimpat 100mg bid x one week, then stop - start briviact 50mg bid (will need to be arranged as an outpatient as briviact is not on the formulary here) - primidone/phenobarb and gabapentin levels are pending - could consider outpatient PME panel if this helps to direct therapy. Would strongly consider referral to [facility] epileptologist for further management (especially since family is interested in starting epidiolex or medical marijuana) # Suspected severe essential tremor vs cerebellar ataxia: - continue home primidone 50mg tid. Could consider increasing primidone to 100mg bid for better compliance. Thank you for this interesting consult. Plan of care discussed with primary team. Please call or text with questions. Admission and Anticipated Discharge Date Admission Date: October 25, 2019 Subjective NAEs overnight. Has weaned off of gabapentin without issue. More alert today and interactive. Father asking about starting medical marijuana for seizures. Recommended that he might be a candidate for epidiolex but that he would need to see an epileptologist for this prescription (at least initially). Review of Systems Review of Systems: 10 point review of systems completed and negative except as in HPI. Results & Data ([facility]) Vital Signs (Past 12 Hours) Vital Signs Temp Pulse Resp BP BP Pulse Ox 10/29/19 15:31 36.7 C 61 18 108/62 94 10/29/19 07:16 36.8 C 63 18 121/78 95 Exam (Neuro) Physical Exam: General Exam: GEN: NAD, lying in bed. HEENT: No conjunctival injection, no rhinorrhea. CV: RRR, no peripheral edema PULM: Nonlabored respirations on room air. Neuro Exam: MS: Awake, alert. Oriented to person, being in a hospital, not date. Speech fluent, +mild dysarthria, no paraphasic errors. Language intact including naming, repetition. Intermittently follows commands. Cognition and memory mildly impaired. Inattentive. No clear neglect. CN: Visual clifford full. Unable to visualize fundi on fundoscopic exam (could not keep eyes open). PERRLA OU. EOMI though could not follow commands to formally assess. Facial sensation intact to LT. Facial muscles full and symmetric. Hearing intact to conversation. Uvula midline with symmetric palatal elevation. Shoulder shrug normal. Tongue midline. MOTOR: Normal bulk and tone. No pronator drift. All extremities antigravity without drift (pt would/could not cooperate with formal testing). +moderate action tremor, with frequent myoclonic jerks. REFLEXES: 1+ at biceps, triceps, brachioradialis, trace patella and absent Achilles bilaterally. Toes mute bilaterally. SENSORY: Intact to LT without extinction to double simultaneous stimuli. Vibration intact throughout. COORDINATION: + ataxia on [id number] bilaterally. Decreased amplitude of Lisa bilaterally. GAIT: deferred, wheelchair bound at baseline PG Care Time/CCT Total # of Minutes Spent Total Time Spent with Patient: Total time spent is greater than 50% in coordination of care (as documented) at patient's floor/unit and/or counseling patient: Coding Level of Care Code 32591 Subseq Hosp Care Lvl 3 Diagnoses Seizure R56.9
--- NOTE | 2019-10-29 16:25 | Hospitalist Progress Note ---
Date of Service October 29, 2019 Assessment & Plan (1) Pneumonia: bibasilar densities on CXR, atelectasis vs pneumonia on admission given fever and cough, presentation with seizures, treating for possible pneumonia initially on Cefepime alone, then spiked a fever and added azithro -have now discontinued Cefepime as PCT negative and CXR improved from previous, no signs or symptoms of PNA. -finish out 5 day course azithro 250mg daily WBC normal Remains afebrile since admission, no cough now, no hypoxia, no SOB, PCT today is normal COVID 19 negative on admission (2) Fever: per family, sometimes he has fever post ictal, now resolved x 24 hrs, could be also from PNA UA negative None since day 1 use Tylenol for fever -continue antibiotics w/ Zithromax as above MRSA swab negative (3) Seizure: seizure at [facility] despite taking normal anti-convulsants seizure reportedly lasted 25 minutes prior to arrival - he got 5mg IM x 2 by EMS of [facility] then he slept a lot having episodes of myoclonic jerking, closes his eyes, stop after less than 10 seconds Has a long h/o myoclonus, developmental delay, cognitive impairment and 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 Neuro recommends weaning off of vimpat as sodium channel agents are generally avoided in patients with myoclonic epilepsy and then consider weaning off of lamictal to see if this improves myoclonus/ataxia/tremors (could restart if no improvement noted and seizures worsen). - continue current AEDs: clobazam 5mg bid, felbamate 600mg bid, lamictal IR 400mg bid, primidone 50mg tid - wean down to vimpat 100mg bid x one week, then stop - start briviact 50mg bid (will need to be arranged as an outpatient as briviact is not on the formulary here) - EEG neg for sz - consult neurology appreciated -have discontinued gabapentin as well here (4) Hypotension: pressures in high 80's on HD#2, now improved with IVFs -dcd IVFs is eating and drinking (5) TBI (traumatic brain injury): history of such now with seizure disorder, cognitive impairment, lives in [facility] (6) Benign essential tremor: Primidone, Propranolol difficult to interpret if he is experiencing increased tremors or brief seizures consult neurology appreciated (7) GERD (gastroesophageal reflux disease): not on meds (8) BPH (benign prostatic hyperplasia): with Ayala in place on admission due to seizure -dcd Ayala and voiding -continue FLomax, finasteride (9) Anxiety and depression: continue fluoxetine, buspar (10) Cognitive impairment: noted supportive care (11) Seizure disorder: as above (12) Abnormal ECG: ECGs with TWIs anterolat leads Troponin neg x 2, no chest pain no further workup at this time could be strain from febrile illness -monitored on tele and no abnl rhythms (13) DVT prophylaxis: SCDs, Lovenox SQ Dispo-continued stay but hopeful for dc to [facility] tomorrow if tolerating med adjustments in AEDs PT/OT evals requested Admission and Anticipated Discharge Date Admission Date: October 25, 2019 Subjective Pt has no complaints, still seems drowsy, no seizure activity noted. Is eating. I discussed his care with his primary photo lab specialist who has known him for years. SHe reports Ayaz can typically walk around the house without an assistive device, but occasionally uses a wheel chair. She also reports that ativan makes him sleepy for many days. She states she is willing to travel to [facility] to take him to see an epileptologist there if recommended. I discussed his care with Neurology Review of Systems Review of Systems: All systems reviewed & are unremarkable except as noted in HPI & below Physical Exam Constitutional: WD/WN, vitals as above Eyes: + anicteric sclerae Neck: trachea midline, no thyromegaly Respiratory: normal respiratory effort, lungs clear to auscultation Cardiovascular: RRR, no murmur, no edema Chest (Breasts): Chest: normal inspection of chest Gastrointestinal (Abdomen): normal bowel sounds, soft, nontender, no hepatosplenomegaly Musculoskeletal: Extremities: extremities normal to inspection; no cyanosis and no clubbing Skin: no rashes, warm and dry Neurologic: moves all extremities; no focal motor deficits Motor/Sensory: + tremor (truncal ataxia with sitting up+myoclonus) +myoclonus in hands with raising arms Psychiatric: Orientation: alert, oriented to person, oriented to place and cooperative Lymphatic: no lymphedema Results & Data Results & Data ([facility]) Vital Signs (Past 12 Hours) Vital Signs Temp Pulse Resp BP BP Pulse Ox 10/29/19 15:31 36.7 C 61 18 108/62 94 10/29/19 07:16 36.8 C 63 18 121/78 95 PG Care Time/CCT Total # of Minutes Spent Total Time Spent with Patient: Total time spent is greater than 50% in coordina tion of care (as documented) at patient's floor/unit and/or counseling patient: Coding Level of Care Code 46355 Subseq Hosp Care Lvl 3 Diagnoses Pneumonia J18.9 Laterality: bilateral Lung location: lower lobe of lung Pneumonia type: due to unspecified organism Fever R50.9 Fever type: unspecified Seizure R56.9 Hypotension I95.9 TBI (traumatic brain injury) S06.9X9A Benign essential tremor G25.0 GERD (gastroesophageal reflux disease) K21.9 BPH (benign prostatic hyperplasia) N40.0 Anxiety and depression F41.9; F32.9 Cognitive impairment R41.89 Seizure disorder G40.909 Abnormal ECG R94.31 DVT prophylaxis Z29.9 (1) Fever Fever type: unspecified Qualified Code(s): R50.9 - Fever, unspecified (2) Pneumonia Laterality: bilateral Lung location: lower lobe of lung Pneumonia type: due to unspecified organism Qualified Code(s): J18.9 - Pneumonia, unspecified organism
[2019-10-29] MEDS: AZITHROMYCIN 250 MG TAB PO SCH (16:41)
[2019-10-29] MEDS: ENOXAPARIN INJ 40 MG/0.4 ML SYR SQ SCH (20:22)
[2019-10-30] MEDS: PRIMIDONE 50 MG TAB PO SCH ×3 (10:04→20:47)
[2019-10-30] MEDS: LACOSAMIDE 50 MG TABLET PO SCH ×2 (10:04→20:47)
[2019-10-30] MEDS: TAMSULOSIN HCL 0.4 MG CAP PO SCH ×2 (10:04→20:44)
[2019-10-30] MEDS: FINASTERIDE 5 MG TAB PO SCH (10:05)
[2019-10-30] MEDS: BusPIRone 15 MG TAB PO SCH ×2 (10:05→20:43)
[2019-10-30] MEDS: DOCUSATE SODIUM/SENNA 50/8.6MG TAB PO SCH ×3 (10:05→20:47)
[2019-10-30] MEDS: FLUOXETINE HCL 20 MG CAP PO SCH (10:05)
[2019-10-30] MEDS: PROPRANOLOL HCL LA 80 MG CAPCR PO SCH ×2 (10:06→20:44)
[2019-10-30] MEDS: lamoTRIgine 100 MG TAB PO SCH ×2 (10:06→20:45)
[2019-10-30] MEDS: CLOBAZAM PO SCH ×2 (10:07→17:27)
[2019-10-30] MEDS: FELBAMATE PO SCH ×2 (10:07→20:43)
[2019-10-30] MEDS: FLUTICASONE PROPIONATE NA SPR 16 GM BTL NAE SCH (10:08)
--- NOTE | 2019-10-30 15:16 | Neurology Progress Note ---
Date of Service October 30, 2019 Assessment & Plan (1) Seizure: Ayaz Chatman is a 54 yo man w/ PMH of TBI, intellectual disability, severe essential tremor, NIKI, anxiety/depression and ataxic gait who p/t [facility] with prolonged seizure in the setting of pneumonia. # Prolonged seizure: He continues to have significant ataxia on examination today similar to what is noted in Dr Hernandez's note from August 2019. Overall myoclonus stable. 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 Given both tremor and myoclonic seizures, would recommend weaning off of vimpat as sodium channel agents are generally avoided in patients with myoclonic epilepsy (https://www.ncbi.nlm.nih.gov/pmc/articles/IUW9512110/). Would then consider weaning off of lamictal to see if this improves myoclonus/ataxia/tremors (could restart if no improvement noted and seizures worsen). Will start briviact as it is often better tolerated than keppra in terms of behavioral side effects (ht tps://www.ncbi.nlm.nih.gov/pmc/articles/LCK4048923/) - continue current AEDs: clobazam 5mg bid, felbamate 600mg bid, lamictal IR 400mg bid, primidone 50mg tid - wean down to vimpat 100mg bid x one week, then stop (stop date - start briviact 50mg bid (outpatient prior auth in progress, sample meds brought in for pt and family to keep once home from rehab) - primidone/phenobarb and gabapentin levels are pending 11/06/19 after AM dose) - could consider outpatient PME panel if this helps to direct therapy. Would strongly consider referral to [facility] epileptologist for further management (especially since family is interested in starting epidiolex or medical marijuana) - follow up with JESSIKA Zaragoza in 3-4 weeks # Suspected severe essential tremor vs cerebellar ataxia: - continue home primidone 50mg tid. Could consider increasing primidone to 100mg bid for better compliance. Thank you for this interesting consult. Plan of care discussed with primary team. Please call or text with questions. Admission and Anticipated Discharge Date Admission Date: October 25, 2019 Subjective NAEs overnight. Out of the bed to chair this afternoon. Will plan on going to rehab to try and re-gain some strength and balance post-hospitalization. Review of Systems Review of Systems: 10 point review of systems completed and negative except as in HPI. Results & Data ([facility]) Vital Signs (Past 12 Hours) Vital Signs Temp Pulse Resp BP Pulse Ox 10/30/19 07:47 36.8 C 58 L 18 105/67 94 Exam (Neuro) Physical Exam: General Exam: GEN: NAD, lying in bed. HEENT: No conjunctival injection, no rhinorrhea. CV: RRR, no peripheral edema PULM: Nonlabored respirations on room air. Neuro Exam: MS: Awake, alert. Oriented to person, being in a hospital, not date. Speech fluent, +mild dysarthria, no paraphasic errors. Language intact including naming, repetition. Intermittently follows commands. Cognition and memory mildly impaired. Inattentive. No clear neglect. CN: Visual clifford full. Unable to visualize fundi on fundoscopic exam (could not keep eyes open). PERRLA OU. EOMI with mild end gaze nystagmus. Facial sensation intact to LT. Facial muscles full and symmetric. Hearing intact to conversation. Uvula midline with symmetric palatal elevation. Shoulder shrug normal. Tongue midline. MOTOR: Normal bulk and tone. No pronator drift. All extremities antigravity without drift. +moderate to severe postural tremor, +mild head titubation. REFLEXES: 2+ at biceps, triceps, brachioradialis, trace patella and absent Achilles bilaterally. Toes mute bilaterally. SENSORY: Intact to LT without extinction to double simultaneous stimuli. Vibration intact throughout. COORDINATION: + intention tremor/dysmetria on [id number] bilaterally. Normal finger taps bilaterally. GAIT: deferred, wheelchair bound at baseline PG Care Time/CCT Total # of Minutes Spent Total Time Spent with Patient: Total time spent is greater than 50% in coordination of care (as documented) at patient's floor/unit and/or counseling patient, including 30 minutes spent obtaining medications from clinic for him to start in the hospital. Coding Level of Care Code 94470 Subseq Hosp Care Lvl 3 Diagnoses Seizure R56.9
[2019-10-30] MEDS: AZITHROMYCIN 250 MG TAB PO SCH (17:26)
--- NOTE | 2019-10-30 17:42 | Hospitalist Progress Note ---
Date of Service October 30, 2019 Assessment & Plan (1) Pneumonia: bibasilar densities on CXR, atelectasis vs pneumonia on admission given fever and cough, presentation with seizures, treating for possible pneumonia initially on Cefepime alone, then spiked a fever and added azithro -have now discontinued Cefepime as PCT negative and CXR improved from previous, no signs or symptoms of PNA. -finish out 5 day course azithro 250mg daily-last day will be on 10/30 WBC normal Remains afebrile since admission, no cough now, no hypoxia, no SOB, PCT is normal COVID 19 negative on admission (2) Fever: per family, sometimes he has fever post ictal, now resolved x 24 hrs, could be also from PNA UA negative Remains afebrile since day 1 use Tylenol for fever -continue antibiotics w/ Zithromax as above MRSA swab negative (3) Seizure: seizure at [facility] despite taking normal anti-convulsants seizure reportedly lasted 25 minutes prior to arrival - he got 5mg IM x 2 by EMS of [facility] then he slept a lot Was then having episodes of myoclonic jerking, closes his eyes, stop after less than 10 seconds. 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 Neuro recommends weaning off of Vimpat as sodium channel agents are generally avoided in patients with myoclonic epilepsy and then consider weaning off of Lamictal to see if this improves myoclonus/ataxia/tremors (could restart if no improvement noted and seizures wor sen). - continue current AEDs: clobazam 5mg bid, felbamate 600mg bid, lamictal IR 400mg bid, primidone 50mg tid - wean down to Vimpat 100mg bid x one week, then stop-first day of the wean was 10/28 - start Briviact 50mg bid today-Dr. Branch brought in samples from the office - EEG neg for sz - consult neurology appreciated -have discontinued gabapentin as well here -Will need close follow-up with neurology as an outpatient given multiple changes in medications-can follow-up with either Dr. Hernandez or Dr. Branch who saw him in the hospital. Ultimately, Dr. Branch believes he should have a referral to [facility] to see an Epileptologist (4) Hypotension: pressures in high 80's on HD#2, now improved with IVFs -dcd IVFs is eating and drinking (5) TBI (traumatic brain injury): history of such now with seizure disorder, cognitive impairment, lives in halfway (6) Benign essential tremor: Continue primidone, Propranolol Gabapentin has been discontinued which can worsen tremors Vimpat is being weaned down and then will be discontinued as it can also worsen tremors (7) GERD (gastroesophageal reflux disease): not on meds (8) BPH (benign prostatic hyperplasia): with Ayala in place on admission due to seizure -dcd Ayala and voiding -continue FLomax, finasteride (9) Anxiety and depression: continue fluoxetine, buspar (10) Cognitive impairment: noted supportive care (11) Seizure disorder: as above (12) Abnormal ECG: ECGs with TWIs anterolat leads Troponin neg x 2, no chest pain no further workup at this time could be strain from febrile illness -monitored on tele and no abnl rhythms (13) DVT prophylaxis: SCDs, Lovenox SQ Dispo-medically stable for discharge, PT/OT recommending rehab-referral to [facility] was made and hopeful he will go there tomorrow Admission and Anticipated Discharge Date Admission Date: October 25, 2019 Anticipated date of discharge: 10/31/19 Subjective Patient was out of bed to the chair when I saw him today for the first time in 4 days and was doing well. He still feels a little drowsy but is much more alert. He has no complaints. He is eating. I discussed his care with the neurologist at the bedside and with his father at the bedside. No seizure activity. Patient denies any cough or shortness of breath. Review of Systems Review of Systems: All systems reviewed & are unremarkable except as noted in HPI & below Physical Exam Constitutional: WD/WN, vitals as above Eyes: + anicteric sclerae Neck: trachea midline, no thyromegaly Respiratory: normal respiratory effort, lungs clear to auscultation Cardiovascular: RRR, no murmur, no edema Chest (Breasts): Chest: normal inspection of chest Gastrointestinal (Abdomen): normal bowel sounds, soft, nontender, no hepatosplenomegaly Musculoskeletal: Extremities: extremities normal to inspection; no cyanosis and no clubbing Skin: no rashes, warm and dry Neurologic: moves all extremities; no focal motor deficits Motor/Sensory: + tremor (truncal ataxia with sitting up+myoclonus) Psychiatric: Orientation: alert, oriented to person, oriented to place and cooperative Lymphatic: no lymphedema Results & Data Results & Data ([facility]) Vital Signs (Past 12 Hours) Vital Signs Temp Pulse Resp BP BP Pulse Ox 10/30/19 15:14 37.0 C 54 L 20 115/80 95 10/30/19 07:47 36.8 C 58 L 18 105/67 94 PG Care Time/CCT Total # of Minutes Spent Total Time Spent with Patient: Total time spent is greater than 50% in coordination of care (as documented) at patient's floor/unit and/or counseling patient: Coding Level of Care Code 06272 Subseq Hosp Care Lvl 2 Diagnoses Pneumonia J18.9 Laterality: bilateral Lung location: lower lobe of lung Pneumonia type: due to unspecified organism Fever R50.9 Fever type: unspecified Seizure R56.9 Hypotension I95.9 TBI (traumatic brain injury) S06.9X9A Benign essential tremor G25.0 GERD (gastroesophageal reflux disease) K21.9 BPH (benign prostatic hyperplasia) N40.0 Anxiety and depression F41.9; F32.9 Cognitive impairment R41.89 Seizure disorder G40.909 Abnormal ECG R94.31 DVT prophylaxis Z29.9 (1) Pneumonia Laterality: bilateral Lung location: lower lobe of lung Pneumonia type: due to unspecified organism Qualified Code(s): J18.9 - Pneumonia, unspecified organism (2) Fever Fever type: unspecified Qualified Code(s): R50.9 - Fever, unspecified
[2019-10-30] MEDS: ENOXAPARIN INJ 40 MG/0.4 ML SYR SQ SCH (20:45)
[2019-10-30] MEDS: BRIVIACT PO SCH (20:53)
[2019-10-30] MEDS ORDERED: BRIVIACT 50 MG PO SCH (21:00)
[2019-10-31] MEDS: BusPIRone 15 MG TAB PO SCH (08:06)
[2019-10-31] MEDS: FINASTERIDE 5 MG TAB PO SCH (08:06)
[2019-10-31] MEDS: CLOBAZAM PO SCH (08:06)
[2019-10-31] MEDS: FLUOXETINE HCL 20 MG CAP PO SCH (08:06)
[2019-10-31] MEDS: DOCUSATE SODIUM/SENNA 50/8.6MG TAB PO SCH ×2 (08:07→13:14)
[2019-10-31] MEDS: LACOSAMIDE 50 MG TABLET PO SCH (08:07)
[2019-10-31] MEDS: PRIMIDONE 50 MG TAB PO SCH ×2 (08:07→13:14)
[2019-10-31] MEDS: lamoTRIgine 100 MG TAB PO SCH (08:08)
[2019-10-31] MEDS: PROPRANOLOL HCL LA 80 MG CAPCR PO SCH (08:08)
[2019-10-31] MEDS: FELBAMATE PO SCH (08:09)
[2019-10-31] MEDS: TAMSULOSIN HCL 0.4 MG CAP PO SCH (08:09)
[2019-10-31] MEDS: FLUTICASONE PROPIONATE NA SPR 16 GM BTL NAE SCH (08:10)
[2019-10-31] MEDS: BRIVIACT PO SCH (08:10)
--- NOTE | 2019-10-31 13:34 | Discharge Summary ---
Date of Service October 31, 2019 Admission HPI Per Admitting Provider Caveat: History Limited by - Post-ictal state/Cognitive impairment at baseline. Mr. Ayaz Chatman is a 54 y/o male with past medical hx of cerebellar ataxia, seizure disorder, severe/refractory familial tremor, anxiety/depression, traumatic brain injury, GERD, BPH, cognitive impairment presented to [facility] for seizures. Caregiver and father at bedside. He [facility] a jail per caregiver. He started to have seziures last night that were less than 5 minutes. He had one that was longer than 5 minutes around 7pm tonight which triggered criteria by staff to call 911. Obie had a seizure that lasted about 25 minutes [employer] to [facility] ED, treated with Versed 5mg IM x1, which resolved seizure. He notes to have baseline of one seizure per month. He follows with [facility] Neurology. Caregiver notes he has been taking all medications and has not had any recent new acute complaints. He was found to have a rectal temp of 38.5 C. He has possible bilateral pneumonia on CXR, mildly decreased Mag which was repleted in ED via IV, otherwise no other source of fever, no elevated WBC, no additional seizures here in ED. Patient is post-ictal and drowsy, but stable. Family notes that previous infections have aggravated seizures. No noted recent head trauma or oral/tongue injuries. Principal Diagnosis Seizure, pneumonia Discharge Exam Constitutional WD/WN, vitals as above Eyes + anicteric sclerae ENMT external ear and nose normal, oropharynx normal Neck trachea midline, no thyromegaly Respiratory normal respiratory effort, lungs clear to auscultation Cardiovascular RRR, no murmur, no edema Chest (Breasts) Chest: normal inspection of chest Gastrointestinal (Abdomen) normal bowel sounds, soft, nontender, no hepatosplenomegaly Musculoskeletal Extremities: extremities normal to inspection; no cyanosis and no clubbing Skin no rashes, warm and dry Neurologic moves all extremities; no focal motor deficits Motor/Sensory: + tremor (truncal ataxia with sitting up+myoclonus) Psychiatric Orientation: alert, oriented to person, oriented to place and cooperative Lymphatic no lymphedema Discharge Data Allergies Allergy/AdvReac Type Severity Reaction Status Date / Time sulfamethoxazole Allergy Intermediate dizziness Verified 10/25/19 21:26 and increase in tremor trimethoprim Allergy Intermediate dizziness Verified 10/25/19 21:27 and increase in tremor Bactrim Allergy Unknown dizziness Verified 10/22/17 13:25 and increase in tremor grapefruit AdvReac Mild INTERACTS Verified 10/25/19 21:27 WITH OTHER MEDS ibuprofen AdvReac Mild avoids Verified 10/25/19 21:28 secondary to reactions with other medications levetiracetam AdvReac Mild AGITATION Verified 10/25/19 21:28 Consultations 10/25/19 21:58 ED Decision to Admit Stat 10/26/19 00:27 Consult Case Management - Discharge Planning Routine 10/26/19 17:44 Consult Neurology Routine Ordered Studies 10/28/19 01:05 MR brain seizure wo con Routine EEG Chest x-ray x2 Hospital Course (1) Pneumonia: bibasilar densities on CXR, atelectasis vs pneumonia on admission given fever and cough, presentation with seizures, treating for possible pneumonia initially on Cefepime alone, then spiked a fever and added azithro -have now discontinued Cefepime as PCT negative and CXR improved from previous, no signs or symptoms of PNA. -finished out 5 day course azithro WBC normal Remains afebrile since admission, no cough now, no hypoxia, no SOB, PCT is normal COVID 19 negative on admission (2) Fever: per family, sometimes he has fever post ictal, now resolved x 24 hrs, could be also from PNA UA negative Remains afebrile since day 1 Treated w/ Zithromax as above MRSA swab negative (3) Seizure: seizure at jail despite taking normal anti-convulsants seizure reportedly lasted 25 minutes prior to arrival - he got 5mg IM x 2 by EMS of Versed then he slept a lot Was then having episodes of myoclonic jerking, closes his eyes, stop after less than 10 seconds. 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 Neuro recommends weaning off of Vimpat as sodium channel agents are generally avoided in patients with myoclonic epilepsy and then consider weaning off of Lamictal to see if this improves myoclonus/ataxia/tremors (could restart if no improvement noted and seizures worsen). - continue current AEDs: clobazam 5mg bid, felbamate 600mg bid, lamictal XR 400mg bid, primidone 50mg tid - wean down to Vimpat 100mg bid x one week, then stop-first day of the wean was 10/28 - started Briviact 50mg bid on 10/29-Dr. Branch brought in samples from the office and a prior authorization is in process - EEG neg for sz - consult neurology appreciated -have discontinued gabapentin as well here -Will need close follow-up with neurology as an outpatient given multiple changes in medications-can follow-up with Amanda Davey, or Dr. Branch who saw him in the hospital. Ultimately, Dr. Branch believes he should have a referral to [facility] to see an Epileptologist at some point in the future (4) Hypotension: pressures in high 80's on HD#2, now improved with IVFs -dcd IVFs is eating and drinking (5) TBI (traumatic brain injury): history of such now with seizure disorder, cognitive impairment, lives in jail (6) Benign essential tremor: Continue primidone, Propranolol Gabapentin has been discontinued which can worsen tremors Vimpat is being weaned down and then will be discontinued as it can also worsen tremors (7) GERD (gastroesophageal reflux disease): not on meds (8) BPH (benign prostatic hyperplasia): with Ayala in place on admission due to seizure -dcd Ayala and voiding -continue FLomax, finasteride (9) Anxiety and depression: continue fluoxetine, buspar (10) Cognitive impairment: noted supportive care (11) Seizure disorder: as above (12) Abnormal ECG: ECGs with TWIs anterolat leads Troponin neg x 2, no chest pain no further workup at this time could be strain from febrile illness -monitored on tele and no abnl rhythms (13) DVT prophylaxis: SCDs, Lovenox SQ Dispo-medically stable for discharge, PT/OT recommending rehab-stable for discharge to [facility] today Total Time Total Time Spent Total Time Spent (In Minutes): Greater than 30 minutes Total Time Includes: Examination of the Patient, Discharge Planning and Medication Reconciliation Discharge Plan Discharge Items Patient Disposition: Transfer Inpatient Rehab Fac Reason For Visit: PNEUMONIA, SEIZURES Discharge Diagnosis: Seizure, pneumonia Condition on Discharge: Fair Activity: As commented below Lifting: Gradually increase as tolerated Bathing: No limitations Exercise/Sports: Gradually increase as tolerated Non-emergency contact: Primary Care Provider and Neurologist Call non-emergency contact if: you have any medication questions, your symptoms worsen and you have a fever Follow-up/Referrals: Jose Juan Brady III, MD [Primary Care Provider] - (Follow-up within 2 weeks after discharge from rehab facility) Leandra Branch MD [Physician] - (Follow-up within 2 weeks after discharge.) Diet: Regular Addtl Attending Provider Instructions: You were admitted with a seizure and a fever, suspected pneumonia. He finished a course of antibiotics for the pneumonia and had no further issues with this. Your seizure and tremor medications have been adjusted. Please follow-up with medication list exactly as follows. Please follow-up with the neurologist, Dr. Leandra Branch, at [facility] within 2 weeks. She is also recommending a referral to [facility] to see an Epileptologist. Pending Studies at Discharge: No Stand-Alone Forms: [facility] Skilled Items Patient informed of condition?: Yes DNR: No Discharge Level of Care: Acute rehab Communicable Disease: No Discharge Prognosis: Improving Lines: None Urinary Catheter: No Medications and DC Order Prescriptions: New lacosamide 100 mg tablet 100 mg PO BID 5 Days Qty: 10 RF: 0 Continued fluoxetine [Prozac] 20 mg capsule 20 mg PO QAM Qty: 30 RF: 3 PreserVision AREDS [id number] tablet 2 tab PO DAILY Qty: 60 RF: 11 primidone 50 mg tablet 50 mg PO TID 30 Days Qty: 90 RF: 5 felbamate 600 mg tablet 600 mg PO BID 30 Days Qty: 60 RF: 5 fluticasone propionate [Flonase Allergy Relief] 50 mcg/actuation spray, suspension 2 spray INTRANASAL QAM Qty: 18.2 RF: 11 clobazam 10 mg tablet 5 mg PO BID 30 Days Qty: 30 RF: 5 Briviact 25 mg tablet 50 mg PO BID Qty: 60 RF: 1 brivaracetam [Briviact] 25 mg tablet RF: 0 finasteride 5 mg tablet 5 mg PO DAILY 30 Days Qty: 30 RF: 3 carbamide peroxide [Debrox] 6.5 % drops 4 drops otic (ear) DAILY Qty: 30 RF: 11 tamsulosin [Flomax] 0.4 mg capsule 0.4 mg PO Q12H Qty: 180 RF: 3 lamotrigine [Lamictal XR] 200 mg tablet extended release 24hr 400 mg PO BID 30 Days Qty: 120 RF: 5 acetaminophen [Tylenol] 325 mg Tablet 325 mg PO Q6 PRN (Reason: Pain/Fever) RF: 0 buspirone 15 mg Tablet 15 mg PO QAM RF: 0 sennosides-docusate sodium [Senna-S] 8.6-50 mg tablet 1 tab PO TID RF: 0 propranolol 80 mg capsule,extended release 24 hr 80 mg PO BID RF: 0 sodium chloride [Saline Mist] 0.65 % Aerosol,[place] 1 spray INTRANASAL Q3H PRN (Reason: Dry Nasal Passages) RF: 0 ondansetron HCl 8 mg Tablet 8 mg PO Q8H PRN (Reason: Nausea And Vomiting) RF: 0 magnesium hydroxide [Milk of Magnesia] 400 mg/5 mL Suspension 15 ml PO DAILY PRN (Reason: Constipation) RF: 0 buspirone 30 mg tablet 30 mg PO HS RF: 0 Discontinued gabapentin 100 mg capsule 100 mg PO TID 30 Days Qty: 90 RF: 5 Vimpat 200 mg tablet 200 mg PO BID 30 Days Qty: 60 RF: 5 Discharge Orders: Discharge Order (Routine); Ordered 10/31/19 Ordered By: Paula Cruz Admission Data Admit Date/Time: 10/25/19 23:08 Attending Provider: Paula Cruz Admit Provider: Ceferino Ahuja Primary Care Provider: Jose Juan Brady III Other Providers: Norris Latif Emile ; [facility] Coding Level of Care Code D/C Day Management >30 mins Diagnoses Pneumonia J18.9 Laterality: bilateral Lung location: lower lobe of lung Pneumonia type: due to unspecified organism Fever R50.9 Fever type: unspecified Seizure R56.9 Hypotension I95.9 TBI (traumatic brain injury) S06.9X9A Benign essential tremor G25.0 GERD (gastroesophageal reflux disease) K21.9 BPH (benign prostatic hyperplasia) N40.0 Anxiety and depression F41.9; F32.9 Cognitive impairment R41.89 Seizure disorder G40.909 Abnormal ECG R94.31 DVT prophylaxis Z29.9
--- NOTE | 2019-10-31 15:44 | Neurology Progress Note ---
Date of Service October 31, 2019 Assessment & Plan (1) Seizure: Ayaz Chatman is a 54 yo man w/ PMH of TBI, intellectual disability, severe essential tremor, NIKI, anxiety/depression and ataxic gait who p/t [facility] with prolonged seizure in the setting of pneumonia. # Prolonged seizure: He continues to have significant ataxia on examination today similar to what is noted in Dr Hernandez's note from August 2019. Overall myoclonus stable. 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 Given both tremor and myoclonic seizures, would recommend weaning off of vimpat as sodium channel agents are generally avoided in patients with myoclonic epilepsy (https://www.ncbi.nlm.nih.gov/pmc/articles/URA3401269/). Would then consider weaning off of lamictal to see if this improves myoclonus/ataxia/tremors (could restart if no improvement noted and seizures worsen). Will start briviact as it is often better tolerated than keppra in terms of behavioral side effects (ht tps://www.ncbi.nlm.nih.gov/pmc/articles/AVF6554729/) - continue current AEDs: clobazam 5mg bid, felbamate 600mg bid, lamictal IR 400mg bid, primidone 50mg tid - wean down to vimpat 100mg bid x one week, then stop (stop date 9/3 after AM dose) - start briviact 50mg bid (outpatient prior auth in progress, sample meds brought in for pt and family to keep once home from rehab) - primidone/phenobarb and gabapentin levels are pending at time of discharge - could consider outpatient PME panel if this helps to direct therapy. Would strongly consider referral to [facility] epileptologist for further management options (at least a one time visit, especially since family is interested in starting epidiolex or medical marijuana) - follow up with JESSIKA Zaragoza in 3-4 weeks # Suspected severe essential tremor vs cerebellar ataxia: - continue home primidone 50mg tid. Could consider increasing primidone to 100mg bid for better compliance. Thank you for this interesting consult. Plan of care discussed with primary team. Please call or text with questions. Admission and Anticipated Discharge Date Admission Date: October 25, 2019 Subjective NAEs overnight. He reports that he is doing pretty good. Was able to eat lunch somewhat independently. Going to rehab later this afternoon. No side effects at this time from the briviact. Review of Systems Review of Systems: 10 point review of systems completed and negative except as in HPI. Results & Data ([facility]) Vital Signs (Past 12 Hours) Vital Signs Temp Pulse Pulse Resp BP BP Pulse Ox 10/31/19 13:37 36.7 C 53 L 75 18 110/64 122/70 96 10/31/19 07:36 36.7 C 53 L 18 122/70 96 Exam (Neuro) Physical Exam: General Exam: GEN: NAD, lying in bed. HEENT: No conjunctival injection, no rhinorrhea. CV: RRR, no peripheral edema PULM: Nonlabored respirations on room air. Neuro Exam: MS: Awake, alert. Oriented to person, being in a hospital, not date. Speech fluent, +mild dysarthria, no paraphasic errors. Language intact including naming, repetition. Intermittently follows commands. Cognition and memory mildly impaired. Inattentive. No clear neglect. CN: Visual clifford full. Unable to visualize fundi on fundoscopic exam (could not keep eyes open). PERRLA OU. EOMI with mild end gaze nystagmus. Facial sensation intact to LT. Facial muscles full and symmetric. Hearing intact to conversation. Uvula midline with symmetric palatal elevation. Shoulder shrug normal. Tongue midline. MOTOR: Normal bulk and tone. No pronator drift. All extremities antigravity without drift. +moderate to severe postural tremor, +mild head titubation. REFLEXES: 2+ at biceps, triceps, brachioradialis, trace patella and absent Achilles bilaterally. Toes mute bilaterally. SENSORY: Intact to LT without extinction to double simultaneous stimuli. Vibration intact throughout. COORDINATION: + intention tremor/dysmetria on [id number] bilaterally. Normal finger taps bilaterally. GAIT: deferred, wheelchair bound at baseline PG Care Time/CCT Total # of Minutes Spent Total Time Spent with Patient: Total time spent is greater than 50% in coordination of care (as documented) at patient's floor/unit and/or counseling patient: Coding Level of Care Code 46619 Subseq Hosp Care Lvl 2 Diagnoses Seizure R56.9
[2019-10-31 23:26] LABS: Primidone, Serum <2.5 mg/L (5.0-12.0)
== END 2019-10-31 15:30 | DRG 195 ==
LOC: ED 19:43 → SUATTDRO 23:08 → 2S 23:08 → 2N 10-28 15:14

== ENCOUNTER 2024-03-20 19:47 | Inpatient (IN) ==
[2024-03-20 20:38] LABS: Basophils # (auto) 0.03 K/uL (0.00-0.20); Basophils % (auto) 0.3 %; Hematocrit (blood only) 45.4 % (42.0-52.0); Hemoglobin 15.4 g/dl (14.0-18.0); Immature Granulocytes # (auto) 0.02 K/uL (0.01-0.20); Immature Granulocytes % (auto) 0.2 %; Lymphocytes # (auto) 1.42 K/uL (1.20-3.40); Lymphocytes % (auto) 15.1 %; Mean Corpuscular Hemoglobin 31.1 pg (25.0-34.0); Mean Corpuscular Hgb Conc 33.9 g/dL (32.0-36.0); Mean Corpuscular Volume 91.7 fL (80.0-100.0); Mean Platelet Volume 9.6 fL (9.4-12.4); Monocytes # (auto) 1.12 K/uL (0.11-0.59); Monocytes % (auto) 11.9 %; Neutrophils % (auto) 72.5 %; Platelet Count 164 K/uL (130-400); RDW Coefficient of Variation 13.2 % (11.5-14.5); RDW Standard Deviation 44.5 fL (36.4-46.3); Red Blood Count 4.95 M/uL (4.70-6.10); White Blood Count 9.39 K/ul (4.8-10.8)
[2024-03-20 20:49] LABS: Alanine Aminotransferase 18 U/L (7-52); Albumin Globulin Ratio 1.4 (0.9-2); Albumin Level 4.3 gm/dl (3.4-5.0); Alkaline Phosphatase 99 U/L (34-104); Anion Gap 8 (3-11); Aspartate Aminotransferase 17 U/L (13-39); BUN Creatinine Ratio 14.7 (10-20); Bilirubin,Total 0.8 mg/dl (0.2-1.0); Blood Urea Nitrogen 14 mg/dl (6-23); Calcium 9.2 mg/dl (8.6-10.3); Carbon Dioxide 26 mmol/L (21-32); Chloride 104 mmol/L (98-107); Globulin 3.1 gm/dl (2.5-4.0); Glucose 128 mg/dl (70-99(Fasting)); Potassium 3.6 mmol/L (3.5-5.1); Sodium 138 mmol/L (136-145); Total Protein 7.4 gm/dl (6.0-8.3)
[2024-03-20 21:03] LABS: Thyroid Stimulating Hormone 0.942 uIu/ml (0.300-4.500)
--- NOTE | 2024-03-20 21:48 | XRay Report ---
Exam(s): XR CXR 1 VIEW EXAM: XR Chest, 1 View CLINICAL HISTORY: Reason for exam: weakness. TECHNIQUE: Frontal view of the chest. COMPARISON: 09/17/23 FINDINGS: Lungs: Pulmonary vascular congestion. No airspace consolidation. Pleural space: Unremarkable. No pleural effusion or pneumothorax. Heart: Cardiomegaly. Bones/joints: No acute fracture. No dislocation. Mild thoracolumbar scoliotic curvature. IMPRESSION: 1. Cardiomegaly. 2. Pulmonary vascular congestion. No airspace consolidation. Electronically signed by: Felicia Cazares M.D. 03/20/24 21:47 PM
[2024-03-20] MEDS ORDERED: VANCOMYCIN CONSULT ACTIVE PRN (22:16)
[2024-03-20 22:36] LABS: C Reactive Protein 9.57 mg/dl (0-0.5); Creatine Kinase 30 U/L (30-223)
[2024-03-20] MEDS: OPTIRAY 320 100ml IV ONE (23:26)
[2024-03-20] MEDS: PIPERACILLIN/TAZOBACTAM 4.5 GM/100 ML BAG IV ONE (23:34)
[2024-03-20] MEDS: SODIUM CHLORIDE 0.9% 1,000 ML IV ONE (23:34)
[2024-03-21] MEDS: VANCOMYCIN HCL 2,000 MG in SODIUM CHLORIDE 0.9% 500 ML IV ONE (00:10)
--- NOTE | 2024-03-21 00:26 | Emergency Department Note ---
History of Present Illness General Chief complaint: Ear Pain/Problem Stated complaint: NOT WALKING, LEFT EAR BLISTERS, Time Seen by Provider: 03/20/24 21:51 History of Present Illness Maximum Pain Intensity: 4 This 58-year-old with intellectual disability, epilepsy, tremor, cerebellar ataxia -the patient follows with Neurology presents ER with congregational care pastor for evaluation of left ear infection. sorting machine attendant states they just noticed this today. Patient complains of pain to the left ear. No trauma to the ear. No fevers. No other concerns per patient or congregational care pastor. Home Medications Medication Instructions Recorded Confirmed Type buspirone 15 mg tablet 15 mg PO QAM 11/14/17 03/21/24 History fluoxetine 20 mg capsule (Prozac) 20 mg PO QAM #30 caps 11/27/18 03/21/24 Rx finasteride 5 mg tablet 5 mg PO QAM 09/17/23 03/21/24 History tamsulosin 0.4 mg capsule (Flomax) 0.4 mg PO AMPM 09/17/23 03/21/24 History brivaracetam 50 mg tablet 100 mg (2 x 50 mg) PO BID 30 days 12/26/23 03/21/24 Rx (Briviact) #120 tabs clobazam 10 mg tablet 5 mg (1/2 x 10 mg) PO BID 30 days 12/26/23 03/21/24 Rx #30 tabs primidone 50 mg tablet 50 mg PO BID 30 days #60 tabs 12/26/23 03/21/24 Rx buspirone 10 mg tablet 10 mg PO QPM 03/21/24 03/21/24 History felbamate 600 mg tablet 600 mg PO AMPM 03/21/24 03/21/24 History multivitamin with folic acid 400 1 tab PO QAM 03/21/24 03/21/24 History mcg tablet (Daily-Eric (with folic acid)) propranolol 80 mg capsule,24 80 mg PO QAM 03/21/24 03/21/24 History hr,extended release vitamins A,C,U-ryvj-[id number] 2,148 2 tab PO QAM 03/21/24 03/21/24 History mcg-113 mg-45 mg-17.4 mg tablet (PreserVision AREDS) Allergies Allergy/AdvReac Type Severity Reaction Status Date / Time sulfamethoxazole Allergy Intermediate dizziness Verified 03/21/24 02:16 and increase in tremor trimethoprim Allergy Intermediate dizziness Verified 03/21/24 02:16 and increase in tremor grapefruit AdvReac Mild INTERACTS Verified 03/21/24 02:16 WITH OTHER MEDS ibuprofen AdvReac Mild avoids Verified 03/21/24 02:16 secondary to reactions with other medications levetiracetam AdvReac Mild AGITATION Verified 03/21/24 02:16 Past Med/Surg History Problem List (Updated 03/21/24 @ 01:50 by Neetu Thomas PA-C) Cellulitis of left ear (Acute) Sinusitis (Acute) Acute perichondritis of left external ear (Acute) Paranasal sinus disease Intellectual disability Hyperhidrosis (Acute) CHI (closed head injury) (Acute) Seizure disorder (Chronic) Ambulatory dysfunction Thyroid nodule (Acute) Anxiety and depression BPH (benign prostatic hyperplasia) Neuropathy GERD (gastroesophageal reflux disease) Benign essential tremor (Chronic) Cerebellar ataxia Hyperlipidemia Pulmonary nodule (Acute) Physical deconditioning (Acute) Pedophilia (Acute) Osteopenia (Acute) Obstructive sleep apnea (Acute) Frequent falls (Acute) Epilepsy, myoclonus (Acute) Cognitive impairment (Acute) Seizure (Chronic) Excessive cerumen in right ear canal (Acute) Medical History History of traumatic brain injury Diffuse traumatic brain injury with loss of consciousness of unspecified duration, subsequent encounter Mild intellectual disabilities Dysphagia Muscle weakness (generalized) Recurrent depressive disorder Conversion disorder with seizures or convulsions Hypokalemia Urinary retention Inguinal hernia Rectal bleed Status epilepticus Urinary tract infection Tegretol toxicity Kidney stone Hydronephrosis with ureteral calculus Surgical History H/O lithotripsy H/O left inguinal hernia repair History of cholecystectomy Family History Father Myocardial infarction Denies family history of Ovarian cancer Prostate cancer Breast cancer Colorectal cancer Social History Smoking Status: Never smoker Second Hand Exposure: No; Do You Dip or Chew Tobacco: No; Hx Alcohol Use: No Hx Substance Use: No Preferred Language: Iraqi Communication Ability: Effective Communication Ability Comment: per record from [facility] pt has mild intellectual disabilities Visual Impairment: No Limitations Hearing Ability: Normal Program Technician Required: No Beliefs That Will Affect Care: None marital status: Single Current Living Situation: Personal Care Facility Current Living Situation Comment: [facility] current occupational status: unemployed Feels Safe at Home: Yes Childhood Exposure to Second-Hand Smoke: No caffeine: Yes Dental Care, Regularly: Yes Physical Activity Frequency: 1-2 Times per Week Assistive Devices: Walker Review of Systems A total of 10 systems reviewed and were otherwise negative Physical Exam Vital Signs Vital Signs - 24 hr 03/20/24 19:51 03/20/24 20:25 03/20/24 20:26 Temperature 36.7 C Temperature Source Temporal Artery Scan Pulse Rate 69 65 Pulse Rate [Apical] 64 Pulse Rhythm [Apical] Pulse Strength [Apical] Respiratory Rate 16 25 H Respiratory Effort / Characteristics Spontaneous Respiratory Depth Normal Normal Respiratory Pattern Blood Pressure 141/76 H Blood Pressure [Right Arm] 150/86 H Blood Pressure Mean 97 Blood Pressure Mean [Right Arm] 107 Blood Pressure Position [Right Arm] Pulse Oximetry 92 91 Oxygen Delivery Method Room Air Sepsis Recent Fever Within 48 Hours No Sepsis New/Unexplained Change in Mental Status No Sepsis Action Taken by Nursing No Action Required 03/20/24 20:26 03/20/24 21:40 03/20/24 23:00 Temperature Temperature Source Pulse Rate 62 Pulse Rate [Apical] 61 57 L Pulse Rhythm [Apical] Regular Pulse Strength [Apical] Normal Respiratory Rate 25 H 16 18 Respiratory Effort / Characteristics Non-Labored Spontaneous Non-Labored Spontaneous Respiratory Depth Normal Normal Respiratory Pattern Regular Regular Blood Pressure Blood Pressure [Right Arm] 124/70 137/85 Blood Pressure Mean Blood Pressure Mean [Right Arm] 88 102 Blood Pressure Position [Right Arm] Semi-fowlers Pulse Oximetry 91 91 98 Oxygen Delivery Method Room Air Sepsis Recent Fever Within 48 Hours Sepsis New/Unexplained Change in Mental Status Sepsis Action Taken by Nursing 03/21/24 00:29 03/21/24 00:49 03/21/24 02:00 Temperature Temperature Source Pulse Rate 60 Pulse Rate [Apical] 54 L 55 L Pulse Rhythm [Apical] Regular Pulse Strength [Apical] Normal Respiratory Rate 19 18 Respiratory Effort / Characteristics Non-Labored Spontaneous Respiratory Depth Normal Respiratory Pattern Regular Blood Pressure Blood Pressure [Right Arm] 128/75 125/78 Blood Pressure Mean Blood Pressure Mean [Right Arm] 92 93 Blood Pressure Position [Right Arm] Semi-fowlers Pulse Oximetry 95 98 Oxygen Delivery Method Room Air Sepsis Recent Fever Within 48 Hours Sepsis New/Unexplained Change in Mental Status Sepsis Action Taken by Nursing VITALS: Vitals are noted on the nurse's note and reviewed by myself. Vital signs stable. GENERAL: Pleasant gentleman, in no acute distress, nondiaphoretic, well- developed well-nourished. SKIN: Left entire ear is erythematous and edematous with blisters extending cellulitis to the mastoid area with reactive lymph nodes, the rest of the skin was without rashes, erythema, edema, or bruising. There is no tenting of the skin. Capillary reflex less than 2 seconds. HEAD: Normocephalic atraumatic. EARS: Right external auditory canals clear and right TM intact. Left auricle erythematous and edematous with blisters concerning for perichondritis and possible developing mastoiditis. Patient is tender over the mastoid bone. Ear canal is swollen and unable to visualize TM. EYES: Pupils equal round and reactive to light and accommodation. Conjunctivae without injection, sclerae without icterus. Extraocular movements intact. NOSE: Patent, no discharge. MOUTH: Mucous membranes moist. Pharynx without erythema or exudate. Uvula midline. Airway patent. Tongue does not deviate. NECK: Supple without nuchal rigidity. No lymphadenopathy. No thyromegaly. Cervical spine is nontender. No JVD. HEART: Regular rate and rhythm LUNGS: Clear to auscultation bilaterally without wheezes, rales or rhonchi. No retractions or accessory muscle use. ABDOMEN: Positive bowel sounds x 4. Normal tympanic percussion. Soft, nontender, without masses or organomegaly. Schaffer sign negative. No guarding or rebound tenderness. No CVA tenderness MUSCULOSKELETAL: No muscle atrophy, erythema, or edema noted. NEURO: Patient was alert and oriented to to baseline per No focal neurological deficits. Course Administered Medications Discontinued Medications Piperacillin Sod/Tazobactam Sod (Zosyn) 4.5 gm in 100 mls @ 200 mls/hr IV NOW ONE; Protocol Stop: 03/20/24 22:40 Last Infusion: 03/21/24 00:11 Dose: Infused Documented By: IDDixie Admin: 03/20/24 23:34 Dose: 200 mls/hr Documented By: BRANDIE Vancomycin HCl 2,000 mg/ (Sodium Chloride) 540 mls @ 200 mls/hr IV NOW ONE Stop: 03/21/24 00:45 Last Admin: 03/21/24 00:10 Dose: 200 mls/hr Documented By: IDD Sodium Chloride (Nss) 1,000 mls @ 999 mls/hr IV .Q1H1M ONE Stop: 03/20/24 23:17 Last Infusion: 03/21/24 01:20 Dose: Infused Documented By: Admin: 03/20/24 23:34 Dose: 999 mls/hr Documented By: BRANDIE Ioversol (Optiray 320 100ml) 100 ml IV ONCE ONE Stop: 03/20/24 23:27 Last Admin: 03/20/24 23:26 Dose: 93 ml Documented By: JUAN DANIEL Medical Decision Making Medical Records Attestation: I reviewed the patient's medical records. Home Medications Current Medication List: was personally reviewed by me Laboratory Data Attestation: I reviewed the patient's lab results. 03/20/24 20:14 03/20/24 20:14 Lab Results 03/20/24 Range/Units 20:14 WBC 9.39 (4.8-10.8) K/ul RBC 4.95 (4.70-6.10) M/uL Hgb 15.4 (14.0-18.0) g/dl Hct 45.4 (42.0-52.0) % MCV 91.7 (80.0-100.0) fL MCH 31.1 (25.0-34.0) pg MCHC 33.9 (32.0-36.0) g/dL RDW Std Deviation 44.5 (36.4-46.3) fL RDW Coeff of Eunice 13.2 (11.5-14.5) % Plt Count 164 (130-400) K/uL MPV 9.6 (9.4-12.4) fL Immature Gran % (Auto) 0.2 % Neut % (Auto) 72.5 % Lymph % (Auto) 15.1 % [place] % (Auto) 11.9 % Eos % (Auto) 0.0 % Baso % (Auto) 0.3 % Neut # (Auto) 6.80 H (1.40-6.50) K/uL Lymph # (Auto) 1.42 (1.20-3.40) K/uL [place] # (Auto) 1.12 H (0.11-0.59) K/uL Eos # (Auto) 0.00 (0.00-0.50) K/uL Baso # (Auto) 0.03 (0.00-0.20) K/uL Immature Gran # (Auto) 0.02 (0.01-0.20) K/uL ESR 34 H (0-20) mm/hr Sodium 138 (136-145) mmol/L Potassium 3.6 (3.5-5.1) mmol/L Chloride 104 (98-107) mmol/L Carbon Dioxide 26 (21-32) mmol/L Anion Gap 8 (3-11) BUN 14 (6-23) mg/dl Creatinine 0.95 (0.6-1.4) mg/dl Est Cr Clr Drug Dosing Not Reportable eGFR 92.20 BUN/Creatinine Ratio 14.7 (10-20) Glucose 128 H (70-99(Fasting)) mg/dl Calcium 9.2 (8.6-10.3) mg/dl Total Bilirubin 0.8 (0.2-1.0) mg/dl AST 17 (13-39) U/L ALT 18 (7-52) U/L Alkaline Phosphatase 99 (34-104) U/L Total Creatine Kinase 30 (30-223) U/L C-Reactive Protein 9.57 H (0-0.5) mg/dl Total Protein 7.4 (6.0-8.3) gm/dl Albumin 4.3 (3.4-5.0) gm/dl Globulin 3.1 (2.5-4.0) gm/dl Albumin/Globulin Ratio 1.4 (0.9-2) TSH 0.942 (0.300-4.500) uIu/ml Imaging Data Radiologist's Impression: Chest X-Ray 03/20/24 19:56 Exam(s): XR CXR 1 VIEW EXAM: XR Chest, 1 View CLINICAL HISTORY: Reason for exam: weakness. TECHNIQUE: Frontal view of the chest. COMPARISON: 09/17/23 FINDINGS: Lungs: Pulmonary vascular congestion. No airspace consolidation. Pleural space: Unremarkable. No pleural effusion or pneumothorax. Heart: Cardiomegaly. Bones/joints: No acute fracture. No dislocation. Mild thoracolumbar scoliotic curvature. IMPRESSION: 1. Cardiomegaly. 2. Pulmonary vascular congestion. No airspace consolidation. Electronically signed by: Felicia Cazares M.D. 03/20/24 21:[address] 03/20/24 22:11 EXAM: CT head/brain wo con CLINICAL HISTORY: CHACKO, left auricle infection, ? mastoiditis TECHNIQUE: Multiple axial images are obtained from the skull base to the vertex without contrast. CT scan was performed according to ALARA (as low as reasonable achievable). 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 FINDINGS: No evidence of space occupying lesion, hemorrhage, edema, mass effect, midline shift, extra axial collection, or hydrocephalus is noted. Basal cisterns are symmetric and normal in size and configuration. There are scattered periventricular hypodensities as can be seen with chronic microvascular ischemic changes. The garcia-white matter differentiation is preserved. Complete opacification of left frontal, ethmoid, sphenoid and maxillary sinus- possibility of sinusitis. Rest of paranasal sinuses and mastoid air cells are well aerated. Orbital contents are within normal limits. Bony structures are intact. IMPRESSION: 1. No evidence of acute intracranial abnormality is demonstrated. 2. Chronic microvascular ischemic changes. 3. Complete opacification of left frontal, ethmoid, sphenoid and maxillary sinus- possibility of sinusitis. -new finding. No evidence of otomasotiditis. Electronically signed by Festus Quintanilla 03-21-2024 01:33 AM Head/Mastoid CT 03/20/24 22:11 EXAM: CT mastoid w con CLINICAL HISTORY: CHACKO, left auricle infection, ? mastoiditis, 93 ML OPTIRAY 320 TECHNIQUE: Computed tomography of the temporal bones was performed without intravenous contrast. Contiguous axial images were obtained. Reformatted coronal and sagittal images were also reviewed. CT scan was performed according to ALARA (as low as reasonable achievable). COMPARISON: none. FINDINGS: Complete opacification with mucosal thickening of left maxillary, ethmoid, sphenoid and frontal sinus shows extends into the left nasal cavity- possibility of left sinonasal polyposis.. Minimal right maxillary sinusitis. Minimal fluid is noted involving right mastoid air cells. Mild thickening is noted involving bilateral external auditory canals Mild fat stranding/subcutaneous edema is noted involving post-auricular space adjacent to the superficial lobe of left parotid gland External auditory canal is well visualized and appears normal. Eustachian tube, sinus tympani and facial recesses appear normal. Tympanic cavity appears normal. Ear ossicles are intact-normal. Cochlea, vestibule and semicircular canals appear normal. Internal auditory canal is normal. Aditus and antrum and mastoid antrum are normal. left Mastoid air cells are clear. No temporal bone fractures seen. IMPRESSION: Complete opacification with mucosal thickening of left maxillary, ethmoid, sphenoid and frontal sinus shows extends into the left nasal cavity- possibility of left sinonasal polyposis.. Minimal right maxillary sinusitis. Minimal fluid is noted involving right mastoid air cells.- mild mastoiditis. Left mastoid air cells are normal. Mild thickening is noted involving bilateral external auditory canals Mild fat stranding/subcutaneous edema is noted involving post-auricular space adjacent to the superficial lobe of left parotid gland Electronically signed by Festus Quintanilla 03-21-2024 01:21 AM [facility] Narrative Prior records reviewed and summarized as above. Triage Nursing notes reviewed. Additional history obtained from congregational care pastor. The patient's history was concerning for swelling and redness of the left ear. Differential diagnosis: Etiologies such as perichondritis, mastoiditis, otitis externa, otitis media, parotitis, cellulitis, abscess, MRSA infection, necrotizing fasciitis, dermatitis, drug eruption, as well as others were entertained.. Physical examination: As above ER treatment provided: Zosyn and vancomycin were ordered On reassessment the patient felt better. Diagnostics interpreted by me: The labs Independently Interpreted by myself revealed no worrisome leukocytosis, elevated inflammatory markers Blood cultures pending Normal CPK Imaging studies: Imaging was reviewed and read by radiology Consultation: A consultation was placed with the hospitalist. The case was discussed and diagnostics were reviewed. The patient was evaluated in the ER for further treatment. This appears to be Perichondritis and cellulitis of the left ear with sinusitis. The ear infection was quite extensive. Weeks extending down to the neck and the whole auricle was swollen and infected. He also had sinusitis. He was started on broad-spectrum antibiotics. Medicine was consulted and the case is discussed. He will be evaluated for admission. By the evaluation outlined above emergent etiologies such as abscess, necrotizing fasciitis, as well as others were deemed relatively unlikely. The pt informed about the findings as listed above. All questions were answered and pleased with the treatment. The chart was completed utilizing Pocket Speech voice recognition software. Grammatical errors, random word insertions, pronoun errors, and incomplete sentences are an occassional consequence of this system due to software limitations, ambient noise, and hardware issues. Any formal questions or concerns about the content, text, or information contained within the body of this dictation should be directly addressed to the physician pediatric physical therapy assistant for clarification. Impression & Plan Acute perichondritis of left external ear, Sinusitis, Cellulitis of left ear Discharge Plan Visit Data Chief Complaint: Ear Pain/Problem Stated Complaint: NOT WALKING, LEFT EAR BLISTERS, ED Provider: Dianne Thurston ED Midlevel Provider: Neetu Thomas Discharge Problem: Acute perichondritis of left external ear, Sinusitis, Cellulitis of left ear Patient Disposition: Admitted As Inpatient Condition: Good Forms Stand Alone Forms: [facility] Prescriptions Prescriptions: No Action fluoxetine [Prozac] 20 mg capsule 20 mg PO QAM Qty: 30 3RF Briviact 50 mg tablet 100 mg PO BID 30 Days Qty: 120 5RF clobazam 10 mg tablet 5 mg PO BID 30 Days Qty: 30 5RF Rx Instructions: TAKES AT 0800 & 1600 primidone 50 mg tablet 50 mg PO BID 30 Days Qty: 60 6RF Rx Instructions: TAKE at 0800 and 2000 buspirone 15 mg Tablet 15 mg PO QAM buspirone 10 mg tablet 10 mg PO QPM felbamate 600 mg tablet 600 mg PO AMPM PreserVision AREDS [id number],[id number] tablet 2 tab PO QAM propranolol 80 mg capsule,extended release 24hr 80 mg PO QAM multivitamin with folic acid [Daily-Eric (with folic acid)] 400 mcg tablet 1 tab PO QAM tamsulosin [Flomax] 0.4 mg capsule 0.4 mg PO AMPM finasteride 5 mg tablet 5 mg PO QAM Referrals Referrals: Ceferino Ahuja, [Primary Care Provider] -
--- NOTE | 2024-03-21 00:48 | Emergency Department Note ---
ED Visit Note I was consulted by the Advanced Practice Provider, Neetu Thomas PA-C. I performed a substantive portion of the visit. This includes aspects of: History: Patient is a 58-year-old male presenting with left ear infection. He has a history of intellectual disability and inpatient care manager rn provides most of history. They report that they noticed that his left ear seemed very red and swollen just today. Patient complaining of pain in the left ear. No known trauma. No reported fevers. MDM: - Laboratory workup interpreted myself showed normal WBC; elevated ESR; stable electrolytes; elevated CRP (8.57); normal TSH. - Chest x-ray negative for pneumonia, per my interpretation. Radiology notes pulmonary vascular congestion. - CT mastoid with IV contrast mild past 20 5 subcutaneous edema of the postauricular space adjacent to the superficial lobe of the left parotid gland; mild thickening of the bilateral external auditory canal; normal left mastoid cells; mild mastoiditis on the right; noted to have right maxillary sinusitis - Patient given IV vancomycin and zosyn for treatment of antibiotic coverage. - Patient to be admitted to inpatient hospitalist service for further evaluation and management .
--- NOTE | 2024-03-21 01:21 | CT Scan Report ---
EXAM: CT mastoid w con CLINICAL HISTORY: CHACKO, left auricle infection, ? mastoiditis, 93 ML OPTIRAY 320 TECHNIQUE: Computed tomography of the temporal bones was performed without intravenous contrast. Contiguous axial images were obtained. Reformatted coronal and sagittal images were also reviewed. CT scan was performed according to ALARA (as low as reasonable achievable). COMPARISON: none. FINDINGS: Complete opacification with mucosal thickening of left maxillary, ethmoid, sphenoid and frontal sinus shows extends into the left nasal cavity- possibility of left sinonasal polyposis.. Minimal right maxillary sinusitis. Minimal fluid is noted involving right mastoid air cells. Mild thickening is noted involving bilateral external auditory canals Mild fat stranding/subcutaneous edema is noted involving post-auricular space adjacent to the superficial lobe of left parotid gland External auditory canal is well visualized and appears normal. Eustachian tube, sinus tympani and facial recesses appear normal. Tympanic cavity appears normal. Ear ossicles are intact-normal. Cochlea, vestibule and semicircular canals appear normal. Internal auditory canal is normal. Aditus and antrum and mastoid antrum are normal. left Mastoid air cells are clear. No temporal bone fractures seen. IMPRESSION: Complete opacification with mucosal thickening of left maxillary, ethmoid, sphenoid and frontal sinus shows extends into the left nasal cavity- possibility of left sinonasal polyposis.. Minimal right maxillary sinusitis. Minimal fluid is noted involving right mastoid air cells.- mild mastoiditis. Left mastoid air cells are normal. Mild thickening is noted involving bilateral external auditory canals Mild fat stranding/subcutaneous edema is noted involving post-auricular space adjacent to the superficial lobe of left parotid gland Electronically signed by Festus Quintanilla 03-21-2024 01:21 AM
--- NOTE | 2024-03-21 01:34 | CT Scan Report ---
EXAM: CT head/brain wo con CLINICAL HISTORY: CHACKO, left auricle infection, ? mastoiditis TECHNIQUE: Multiple axial images are obtained from the skull base to the vertex without contrast. CT scan was performed according to ALARA (as low as reasonable achievable). 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 FINDINGS: No evidence of space occupying lesion, hemorrhage, edema, mass effect, midline shift, extra axial collection, or hydrocephalus is noted. Basal cisterns are symmetric and normal in size and configuration. There are scattered periventricular hypodensities as can be seen with chronic microvascular ischemic changes. The garcia-white matter differentiation is preserved. Complete opacification of left frontal, ethmoid, sphenoid and maxillary sinus- possibility of sinusitis. Rest of paranasal sinuses and mastoid air cells are well aerated. Orbital contents are within normal limits. Bony structures are intact. IMPRESSION: 1. No evidence of acute intracranial abnormality is demonstrated. 2. Chronic microvascular ischemic changes. 3. Complete opacification of left frontal, ethmoid, sphenoid and maxillary sinus- possibility of sinusitis. -new finding. No evidence of otomasotiditis. Electronically signed by Festus Quintanilla 03-21-2024 01:33 AM
--- NOTE | 2024-03-21 02:46 | History & Physical Report ---
Date of Service March 21, 2024 Assessment & Plan (1) Acute pansinusitis: (2) Otitis externa of left ear: (3) Intellectual disability: (4) Seizure disorder: Plan The patient is a 58-year-old male with past medical history including intellectual disability, hyperhidrosis, closed head injury, seizure disorder, anxiety depression, BPH with LUTS, GERD, cerebellar ataxia, hyperlipidemia, NIKI, cognitive impairment, and epilepsy/myoclonus.The patient was brought to the emergency department after being noted by fellow inhabitants of his personal longterm to have generalized weakness, fatigue and inability to ambulate upon awakening in the morning. He slept throughout most of the day. And due to persistent symptoms later on in the evening, he was brought to the emergency department for assessment. He was noted by staff there to have significant erythema of his left ear and drainage with discomfort worsening as the day progressed. #Acute pansinusitis/severe otitis externa left ear- CT scan of sinuses and face show complete opacification of left maxillary, ethmoid, sphenoid and frontal sinuses with extension into the left nasal cavity. There is also mild mastoiditis Likely cause of patient's fatigue, lethargy, confusion and decreased responsiveness Patient was given vancomycin IV and Zosyn IV from the ED Placed on levofloxacin 750 mg IV daily Ciprodex 4 drops in left ear twice daily Follow clinical examination Patient did receive 1 L normal saline bolus in the ED. Encourage oral intake otherwise #Intellectual disability/anxiety depression/seizure disorder- Patient will need to bring in his own brivaracetam, clonazepam, and felbamate Continue buspirone, fluoxetine, primidone, and propranolol #BPH with LUTS- Continue finasteride and tamsulosin #Benign essential tremor- Continue propranolol #CODE STATUS: Patient is able to indicate that he is a full code History of Present Illness Chief Complaint: The patient was brought to the emergency department after being noted by fellow inhabitants of his personal longterm to have generalized weakness, fatigue and inability to ambulate upon awakening in the morning. He slept throughout most of the day. And due to persistent symptoms later on in the evening, he was brought to the emergency department for assessment. He was noted by staff there to have significant erythema of his left ear and drainage with discomfort wors ening as the day progressed. Primary Care Provider: Ceferino Ahuja DO The patient is a 58-year-old male with past medical history including intellectual disability, hyperhidrosis, closed head injury, seizure disorder, anxiety depression, BPH with LUTS, GERD, cerebellar ataxia, hyperlipidemia, NIKI, cognitive impairment, and epilepsy/myoclonus.The patient was brought to the emergency department after being noted by fellow inhabitants of his personal longterm to have generalized weakness, fatigue and inability to ambulate upon awakening in the morning. He slept throughout most of the day. And due to persistent symptoms later on in the evening, he was brought to the emergency department for assessment. He was noted by staff there to have significant erythema of his left ear and drainage with discomfort worsening as the day progressed. Allergies Allergy/AdvReac Type Severity Reaction Status Date / Time sulfamethoxazole Allergy Intermediate dizziness Verified 03/21/24 02:16 and increase in tremor trimethoprim Allergy Intermediate dizziness Verified 03/21/24 02:16 and increase in tremor grapefruit AdvReac Mild INTERACTS Verified 03/21/24 02:16 WITH OTHER MEDS ibuprofen AdvReac Mild avoids Verified 03/21/24 02:16 secondary to reactions with other medications levetiracetam AdvReac Mild AGITATION Verified 03/21/24 02:16 Home Medications Medication Instructions Recorded Confirmed Type buspirone 15 mg tablet 15 mg PO QAM 11/14/17 03/21/24 History fluoxetine 20 mg capsule (Prozac) 20 mg PO QAM #30 caps 11/27/18 03/21/24 Rx finasteride 5 mg tablet 5 mg PO QAM 09/17/23 03/21/24 History tamsulosin 0.4 mg capsule (Flomax) 0.4 mg PO AMPM 09/17/23 03/21/24 History brivaracetam 50 mg tablet 100 mg (2 x 50 mg) PO BID 30 days 12/26/23 03/21/24 Rx (Briviact) #120 tabs clobazam 10 mg tablet 5 mg (1/2 x 10 mg) PO BID 30 days 12/26/23 03/21/24 Rx #30 tabs primidone 50 mg tablet 50 mg PO BID 30 days #60 tabs 12/26/23 03/21/24 Rx buspirone 10 mg tablet 10 mg PO QPM 03/21/24 03/21/24 History felbamate 600 mg tablet 600 mg PO AMPM 03/21/24 03/21/24 History multivitamin with folic acid 400 1 tab PO QAM 03/21/24 03/21/24 History mcg tablet (Daily-Eric (with folic acid)) propranolol 80 mg capsule,24 80 mg PO QAM 03/21/24 03/21/24 History hr,extended release vitamins A,C,O-ydyw-ajmgus 2,148 2 tab PO QAM 03/21/24 03/21/24 History mcg-113 mg-45 mg-17.4 mg tablet (PreserVision AREDS) Past Med/Surg History Problem List (Updated 03/21/24 @ 04:03 by Norris Latif MD) Otitis externa of left ear Acute pansinusitis Cellulitis of left ear (Acute) Sinusitis (Acute) Acute perichondritis of left external ear (Acute) Paranasal sinus disease Intellectual disability Hyperhidrosis (Acute) CHI (closed head injury) (Acute) Seizure disorder (Chronic) Ambulatory dysfunction Thyroid nodule (Acute) Anxiety and depression BPH (benign prostatic hyperplasia) Neuropathy GERD (gastroesophageal reflux disease) Benign essential tremor (Chronic) Cerebellar ataxia Hyperlipidemia Pulmonary nodule (Acute) Physical deconditioning (Acute) Pedophilia (Acute) Osteopenia (Acute) Obstructive sleep apnea (Acute) Frequent falls (Acute) Epilepsy, myoclonus (Acute) Cognitive impairment (Acute) Seizure (Chronic) Excessive cerumen in right ear canal (Acute) Medical History History of traumatic brain injury Diffuse traumatic brain injury with loss of consciousness of unspecified duration, subsequent encounter Mild intellectual disabilities Dysphagia Muscle weakness (generalized) Recurrent depressive disorder Conversion disorder with seizures or convulsions Hypokalemia Urinary retention Inguinal hernia Rectal bleed Status epilepticus Urinary tract infection Tegretol toxicity Kidney stone Hydronephrosis with ureteral calculus Surgical History H/O lithotripsy H/O left inguinal hernia repair History of cholecystectomy Family History Father Myocardial infarction Denies family history of Ovarian cancer Prostate cancer Breast cancer Colorectal cancer Social History (Reviewed 12/17/23 @ 10:56 by PRICE Michel Smoking Status: Never smoker Second Hand Exposure: No; Do You Dip or Chew Tobacco: No; Hx Alcohol Use: No Hx Substance Use: No Preferred Language: Chinese Communication Ability: Effective Communication Ability Comment: per record from [facility] pt has mild inte llectual disabilities Visual Impairment: No Limitations Hearing Ability: Normal Health Policy Manager Required: No Beliefs That Will Affect Care: None marital status: Single Current Living Situation: Personal Care Facility Current Living Situation Comment: Adult Daycare current occupational status: unemployed Feels Safe at Home: Yes Childhood Exposure to Second-Hand Smoke: No caffeine: Yes Dental Care, Regularly: Yes Physical Activity Frequency: 1-2 Times per Week Assistive Devices: Walker Review of Systems Review of Systems: HPI and review of systems are limited due to patient's baseline intellectual d isability, and are as supplied by his triage register nurse who is with him in the ED this evening. Physical Exam Physical Exam: The patient is arouses easily to conversation, mildly lethargic, lying in bed and in no acute distress. HEENT--PERRL, EOMI, mucous membranes and oropharynx dry. Left ear with moderate ly severe erythema externally and mild drainage from external ear canal Neck--supple. No JVD. No bruits. Thyroid normal, trachea midline, no adenopathy. Heart--normal S1 and S2. No murmurs, rubs or gallops. Lungs--clear bilaterally, no respiratory distress, no accessory muscle use. Abdomen--normal bowel sounds and soft. Nontender. Nondistended, no hernias or masses, no organomegaly. Extremities--no cyanosis or clubbing. No edema. Dermatologic--normal except for left ear as noted Neurologic--cranial nerves II through XII grossly intact. Rheumatologic--limited exam Psychiatric--mildly lethargic, but arouses easily to voice Results & Data Results & Data Vital Signs (Past 12 Hours) Vital Signs Temp Pulse Pulse Resp BP BP Pulse Ox 03/21/24 00:49 54 L 19 128/75 95 03/21/24 00:29 60 03/20/24 23:00 57 L 18 137/85 98 03/20/24 21:40 61 16 124/70 91 03/20/24 20:26 62 25 H 91 03/20/24 20:26 64 25 H 150/86 H 91 03/20/24 20:25 65 03/20/24 19:51 36.7 C 69 16 141/76 H 92 O2 Del Method 03/21/24 00:49 03/21/24 00:29 03/20/24 23:00 Room Air 03/20/24 21:40 03/20/24 20:26 03/20/24 20:26 03/20/24 20:25 03/20/24 19:51 Room Air Laboratory Results Laboratory Results WBC 9.39 K/ul (4.8-10.8) 03/20/24 20:14 RBC 4.95 M/uL (4.70-6.10) 03/20/24 20:14 Hgb 15.4 g/dl (14.0-18.0) 03/20/24 20:14 Hct 45.4 % (42.0-52.0) 03/20/24 20:14 MCV 91.7 fL (80.0-100.0) 03/20/24 20:14 MCH 31.1 pg (25.0-34.0) 03/20/24 20:14 MCHC 33.9 g/dL (32.0-36.0) 03/20/24 20:14 RDW Std Deviation 44.5 fL (36.4-46.3) 03/20/24 20:14 RDW Coeff of Eunice 13.2 % (11.5-14.5) 03/20/24 20:14 Plt Count 164 K/uL (130-400) 03/20/24 20:14 MPV 9.6 fL (9.4-12.4) 03/20/24 20:14 Immature Gran % (Auto) 0.2 % 03/20/24 20:14 Neut % (Auto) 72.5 % 03/20/24 20:14 Lymph % (Auto) 15.1 % 03/20/24 20:14 [place] % (Auto) 11.9 % 03/20/24 20:14 Eos % (Auto) 0.0 % 03/20/24 20:14 Baso % (Auto) 0.3 % 03/20/24 20:14 Neut # (Auto) 6.80 K/uL (1.40-6.50) H 03/20/24 20:14 Lymph # (Auto) 1.42 K/uL (1.20-3.40) 03/20/24 20:14 [place] # (Auto) 1.12 K/uL (0.11-0.59) H 03/20/24 20:14 Eos # (Auto) 0.00 K/uL (0.00-0.50) 03/20/24 20:14 Baso # (Auto) 0.03 K/uL (0.00-0.20) 03/20/24 20:14 Immature Gran # (Auto) 0.02 K/uL (0.01-0.20) 03/20/24 20:14 ESR 34 mm/hr (0-20) H 03/20/24 20:14 Sodium 138 mmol/L (136-145) 03/20/24 20:14 Potassium 3.6 mmol/L (3.5-5.1) 03/20/24 20:14 Chloride 104 mmol/L (98-107) 03/20/24 20:14 Carbon Dioxide 26 mmol/L (21-32) 03/20/24 20:14 Anion Gap 8 (3-11) 03/20/24 20:14 BUN 14 mg/dl (6-23) 03/20/24 20:14 Creatinine 0.95 mg/dl (0.6-1.4) 03/20/24 20:14 Est Cr Clr Drug Dosing Not Reportable 03/20/24 20:14 eGFR 92.20 03/20/24 20:14 BUN/Creatinine Ratio 14.7 (10-20) 03/20/24 20:14 Glucose 128 mg/dl (70-99(Fasting)) H 03/20/24 20:14 Calcium 9.2 mg/dl (8.6-10.3) 03/20/24 20:14 Total Bilirubin 0.8 mg/dl (0.2-1.0) 03/20/24 20:14 AST 17 U/L (13-39) 03/20/24 20:14 ALT 18 U/L (7-52) 03/20/24 20:14 Alkaline Phosphatase 99 U/L (34-104) 03/20/24 20:14 Total Creatine Kinase 30 U/L (30-223) 03/20/24 20:14 C-Reactive Protein 9.57 mg/dl (0-0.5) H 03/20/24 20:14 Total Protein 7.4 gm/dl (6.0-8.3) 03/20/24 20:14 Albumin 4.3 gm/dl (3.4-5.0) 03/20/24 20:14 Globulin 3.1 gm/dl (2.5-4.0) 03/20/24 20:14 Albumin/Globulin Ratio 1.4 (0.9-2) 03/20/24 20:14 TSH 0.942 uIu/ml (0.300-4.500) 03/20/24 20:14 Impressions Chest X-Ray 03/20/24 19:56 Exam(s): XR CXR 1 VIEW EXAM: XR Chest, 1 View CLINICAL HISTORY: Reason for exam: weakness. TECHNIQUE: Frontal view of the chest. COMPARISON: 09/17/23 FINDINGS: Lungs: Pulmonary vascular congestion. No airspace consolidation. Pleural space: Unremarkable. No pleural effusion or pneumothorax. Heart: Cardiomegaly. Bones/joints: No acute fracture. No dislocation. Mild thoracolumbar scoliotic curvature. IMPRESSION: 1. Cardiomegaly. 2. Pulmonary vascular congestion. No airspace consolidation. Electronically signed by: Felicia Cazares M.D. 03/20/24 21:[address] 03/20/24 22:11 EXAM: CT head/brain wo con CLINICAL HISTORY: CHACKO, left auricle infection, ? mastoiditis TECHNIQUE: Multiple axial images are obtained from the skull base to the vertex without contrast. CT scan was performed according to ALARA (as low as reasonable achievable). COMPARISON: 05/20/2018 20:38:19 CLINICAL STAFF PHARMACIST. FINDINGS: No evidence of space occupying lesion, hemorrhage, edema, mass effect, midline shift, extra axial collection, or hydrocephalus is noted. Basal cisterns are symmetric and normal in size and configuration. There are scattered periventricular hypodensities as can be seen with chronic microvascular ischemic changes. The garcia-white matter differentiation is preserved. Complete opacification of left frontal, ethmoid, sphenoid and maxillary sinus- possibility of sinusitis. Rest of paranasal sinuses and mastoid air cells are well aerated. Orbital contents are within normal limits. Bony structures are intact. IMPRESSION: 1. No evidence of acute intracranial abnormality is demonstrated. 2. Chronic microvascular ischemic changes. 3. Complete opacification of left frontal, ethmoid, sphenoid and maxillary sinus- possibility of sinusitis. -new finding. No evidence of otomasotiditis. Electronically signed by Festus Quintanilla 03-21-2024 01:33 AM Head/Mastoid CT 03/20/24 22:11 EXAM: CT mastoid w con CLINICAL HISTORY: CHACKO, left auricle infection, ? mastoiditis, 93 ML OPTIRAY 320 TECHNIQUE: Computed tomography of the temporal bones was performed without intravenous contrast. Contiguous axial images were obtained. Reformatted coronal and sagittal images were also reviewed. CT scan was performed according to ALARA (as low as reasonable achievable). COMPARISON: none. FINDINGS: Complete opacification with mucosal thickening of left maxillary, ethmoid, sphenoid and frontal sinus shows extends into the left nasal cavity- possibility of left sinonasal polyposis.. Minimal right maxillary sinusitis. Minimal fluid is noted involving right mastoid air cells. Mild thickening is noted involving bilateral external auditory canals Mild fat stranding/subcutaneous edema is noted involving post-auricular space adjacent to the superficial lobe of left parotid gland External auditory canal is well visualized and appears normal. Eustachian tube, sinus tympani and facial recesses appear normal. Tympanic cavity appears normal. Ear ossicles are intact-normal. Cochlea, vestibule and semicircular canals appear normal. Internal auditory canal is normal. Aditus and antrum and mastoid antrum are normal. left Mastoid air cells are clear. No temporal bone fractures seen. IMPRESSION: Complete opacification with mucosal thickening of left maxillary, ethmoid, sphenoid and frontal sinus shows extends into the left nasal cavity- possibility of left sinonasal polyposis.. Minimal right maxillary sinusitis. Minimal fluid is noted involving right mastoid air cells.- mild mastoiditis. Left mastoid air cells are normal. Mild thickening is noted involving bilateral external auditory canals Mild fat stranding/subcutaneous edema is noted involving post-auricular space adjacent to the superficial lobe of left parotid gland Electronically signed by Festus Quintanilla 03-21-2024 01:21 AM Code Status & VTE Plan Code Status Full code VTE Prophylaxis Plan VTE Prophylaxis will be ordered: Yes PG Care Time/CCT Total # of Minutes Spent Total Time Spent with Patient: Total time spent is greater than 50% in coordination of care (as documented) at patient's floor/unit and/or counseling patient: Coding Level of Care Code 46645 INT INP/OBS CARE Diagnoses Acute pansinusitis J01.40 Otitis externa of left ear H60.92 Intellectual disability F79 Seizure disorder G40.909
[2024-03-21 06:14] LABS: Appearance Urine Clear (Clear); Bacteria Urine Automated None Seen (None Seen); Bilirubin Urine Negative (Negative); Blood Urine Negative (Negative); Cast Urine Automated 0-2 /lpf (0-2); Color Urine Yellow; Epithelial Cell Urine Auto 0-2 /hpf (0-2); Glucose Urine UA Negative (Negative); Ketones Urine Negative (Negative); Leukocyte Esterase Urine Negative (Negative); Nitrite Urine Negative (Negative); Protein Urine Trace (Negative); RBC Urine Automated 0-2 /hpf (0-2); Specific Gravity Urine > 1.045 (1.000-1.030); Urobilinogen Urine Negative (Negative); WBC Urine Automated 0-5 /hpf (0-5); pH Urine 5.5 (4.5-7.5)
[2024-03-21] MEDS: levoFLOXacin/D5W 750 MG/150 ML BAG IV SCH (06:41)
--- NOTE | 2024-03-21 07:43 | Hospitalist Progress Note ---
Date of Service March 21, 2024 Assessment & Plan (1) Acute pansinusitis: (2) Otitis externa of left ear: (3) Intellectual disability: (4) Seizure disorder: Plan The patient is a 58-year-old male with past medical history including intellectual disability, hyperhidrosis, closed head injury, seizure disorder, anxiety depression, BPH with LUTS, GERD, cerebellar ataxia, hyperlipidemia, NIKI, cognitive impairment, and epilepsy/myoclonus.The patient was brought to the emergency department after being noted by fellow inhabitants of his personal fci to have generalized weakness, fatigue and inability to ambulate upon awakening in the morning. He slept throughout most of the day. And due to persistent symptoms later on in the evening, he was brought to the emergency department for assessment. He was noted by staff there to have significant erythema of his left ear and drainage with discomfort worsening as the day progressed. #Acute pansinusitis/severe otitis externa left ear- - CT scan of sinuses and face show complete opacification of left maxillary, ethmoid, sphenoid and frontal sinuses with extension into the left nasal cavity. There is also mild mastoiditis - Likely cause of patient's fatigue, lethargy, confusion and decreased responsiveness - Patient was given vancomycin IV and Zosyn IV from the ED - MRSA neg - Placed on levofloxacin 750 mg IV daily, cont - Ciprodex 4 drops in left ear twice daily - Guaifenesin BID - Follow clinical examination - Patient did receive 1 L normal saline bolus in the ED. Encourage oral intake otherwise #Intellectual disability/anxiety depression/seizure disorder- - Patient will need to bring in his own brivaracetam, clonazepam, and felbamate - Continue buspirone, fluoxetine, primidone, and propranolol #BPH with LUTS- - Continue finasteride and tamsulosin #Benign essential tremor- - Continue propranolol #CODE STATUS: Patient is able to indicate that he is a full code Admission and Anticipated Discharge Date Admission Date: March 21, 2024 Subjective No acute events overnight Currently no new complaints Review of Systems Review of Systems: Comprehensive ROS neg Physical Exam Physical Exam: Gen: NAD HEENT: NC/AT, MMM, no drainage noted in the left ear, though pinna is very red with 2 -3 small yellowish fluid filled blisters, no pain when pressure applied to maxillary / frontal sinuses Lungs: CTAB CVS: s1s2nl, RRR Abd: soft, NT, nl bowel sounds Ext: no edema Results & Data Results & Data Vital Signs (Past 12 Hours) Vital Signs Temp Pulse Pulse Pulse Resp BP BP 03/21/24 06:30 37.0 C 57 L 18 124/75 03/21/24 05:00 03/21/24 05:00 56 L 18 122/79 03/21/24 04:11 56 L 03/21/24 04:00 55 L 18 135/82 03/21/24 02:00 55 L 18 125/78 03/21/24 00:49 54 L 19 128/75 03/21/24 00:29 60 03/20/24 23:00 57 L 18 137/85 03/20/24 21:40 61 16 124/70 03/20/24 20:26 62 25 H 03/20/24 20:26 64 25 H 150/86 H 03/20/24 20:25 65 03/20/24 19:51 36.7 C 69 16 141/76 H Pulse Ox Pulse Ox O2 Del Method O2 Del Method 03/21/24 06:30 94 Room Air 03/21/24 05:00 94 Room Air 03/21/24 05:00 94 Room Air 03/21/24 04:11 03/21/24 04:00 94 Room Air 03/21/24 02:00 98 Room Air 03/21/24 00:49 95 03/21/24 00:29 03/20/24 23:00 98 Room Air 03/20/24 21:40 91 03/20/24 20:26 91 03/20/24 20:26 91 03/20/24 20:25 03/20/24 19:51 92 Room Air PG Care Time/CCT Total # of Minutes Spent Total Time Spent with Patient: Total time spent is greater than 50% in coordination of care (as documented) at patient's floor/unit and/or counseling patient: Coding Level of Care Code 67174 SUB INP/OBS CARE 235MIN Diagnoses Acute pansinusitis J01.40 Otitis externa of left ear H60.92 Intellectual disability F79 Seizure disorder G40.909
[2024-03-21] MEDS: CIPRO 0.3%/DEXAMETHASONE 0.1% OTIC SUSP 7.5ML OT SCH (08:35)
[2024-03-21] MEDS: FLUoxetine HCL 20 MG CAP PO SCH (08:35)
[2024-03-21] MEDS: busPIRone 15 MG TAB PO SCH (08:35)
[2024-03-21] MEDS: FINASTERIDE 5 MG TAB PO SCH (08:36)
[2024-03-21] MEDS: TAMSULOSIN HCL 0.4 MG CAP PO SCH (08:36)
[2024-03-21] MEDS: MULTIVITAMIN TAB PO SCH (08:36)
[2024-03-21] MEDS: PRIMIDONE 50 MG TAB PO SCH (08:37)
[2024-03-21] MEDS: PROPRANOLOL HCL LA 80 MG CAPCR PO SCH (08:37)
[2024-03-21] MEDS: HEPARIN SOD 5,000 UNIT/0.5 ML VIAL SQ SCH (08:43)
[2024-03-21] MEDS ORDERED: NON-FORMULARY MEDICATION (Vitamins A,C,E-Zinc-Copper [Preservision Areds] 7,160-113-100 un PO SCH (09:00)
[2024-03-21] MEDS ORDERED: PRIMIDONE 50 MG TAB PO SCH (09:00)
[2024-03-21] MEDS: guaiFENesin 600 MG TABCR PO SCH (10:13)
[2024-03-21] MEDS: BRIVARACETAM 50 MG PO SCH (15:21)
[2024-03-21] MEDS: FELBAMATE 600 MG PO SCH (15:22)
--- NOTE | 2024-03-21 18:25 | Electrocardiogram Report ---
Test Reason : Blood Pressure : */* mmHG Vent. Rate : 67 BPM Atrial Rate : 67 BPM P-R Int : 180 ms QRS Dur : 102 ms QT Int : 368 ms P-R-T Axes : 45 -32 34 degrees QTcB Int : 389 ms Normal sinus rhythm Left axis deviation Incomplete right bundle branch block Abnormal ECG When compared with ECG of 17-Sep-2023 08:44, Nonspecific T wave abnormality, worse in Inferior leads Inverted T waves have replaced nonspecific T wave abnormality in Anterolateral leads Confirmed by Sergo Conner ([id number]) on 03/21/2024 6:25:17 PM Referred By: REFERRED SELF Confirmed By: Sergo Conner
[2024-03-21] MEDS: busPIRone 5 MG TAB PO SCH (20:10)
[2024-03-22 07:27] LABS: Basophils # (auto) 0.01 K/uL (0.00-0.20); Basophils % (auto) 0.2 %; Hematocrit (blood only) 41.3 % (42.0-52.0); Immature Granulocytes # (auto) 0.03 K/uL (0.01-0.20); Immature Granulocytes % (auto) 0.5 %; Lymphocytes # (auto) 0.93 K/uL (1.20-3.40); Lymphocytes % (auto) 15.5 %; Mean Corpuscular Hemoglobin 31.2 pg (25.0-34.0); Mean Corpuscular Hgb Conc 33.9 g/dL (32.0-36.0); Mean Platelet Volume 9.6 fL (9.4-12.4); Monocytes # (auto) 0.67 K/uL (0.11-0.59); Monocytes % (auto) 11.2 %; Neutrophils # (auto) 4.36 K/uL (1.40-6.50); Neutrophils % (auto) 72.6 %; Platelet Count 137 K/uL (130-400); RDW Coefficient of Variation 13.2 % (11.5-14.5); Red Blood Count 4.49 M/uL (4.70-6.10)
[2024-03-22 07:47] LABS: Partial Thromboplastin Ratio 1.6; Partial Thromboplastin Time 43 Seconds (21-31); Prothrombin Time 10.9 Seconds (9.0-12.0)
[2024-03-22 07:52] LABS: Albumin Globulin Ratio 1.5 (0.9-2); BUN Creatinine Ratio 12.6 (10-20); Bilirubin,Total 0.6 mg/dl (0.2-1.0); Calcium 8.8 mg/dl (8.6-10.3); Creatinine Clr Calc Pharmacy 113.4 ml/min; Globulin 2.6 gm/dl (2.5-4.0); Magnesium 1.7 mg/dl (1.7-2.4); Potassium 3.7 mmol/L (3.5-5.1); Total Protein 6.6 gm/dl (6.0-8.3)
--- NOTE | 2024-03-22 08:01 | Hospitalist Progress Note ---
Date of Service March 22, 2024 Assessment & Plan (1) Acute pansinusitis: (2) Otitis externa of left ear: (3) Intellectual disability: (4) Seizure disorder: Plan The patient is a 58-year-old male with past medical history including intellectual disability, hyperhidrosis, closed head injury, seizure disorder, anxiety depression, BPH with LUTS, GERD, cerebellar ataxia, hyperlipidemia, NIKI, cognitive impairment, and epilepsy/myoclonus.The patient was brought to the emergency department after being noted by fellow inhabitants of his personal prison to have generalized weakness, fatigue and inability to ambulate upon awakening in the morning. He slept throughout most of the day. And due to persistent symptoms later on in the evening, he was brought to the emergency department for assessment. He was noted by staff there to have significant erythema of his left ear and drainage with discomfort worsening as the day progressed. #Acute pansinusitis/severe otitis externa left ear- - CT scan of sinuses and face show complete opacification of left maxillary, ethmoid, sphenoid and frontal sinuses with extension into the left nasal cavity. There is also mild mastoiditis - Likely cause of patient's fatigue, lethargy, confusion and decreased responsiveness - Patient was given vancomycin IV and Zosyn IV from the ED - MRSA neg - cont levofloxacin 750 mg IV daily, Day 3 - Ciprodex 4 drops in left ear twice daily Day 3 - Guaifenesin BID - Follow clinical examination - Patient did receive 1 L normal saline bolus in the ED. Encourage oral intake otherwise #Intellectual disability/anxiety depression/seizure disorder- - cont clobazam, felbamate, and brivaracetam - cont buspirone, fluoxetine, primidone, and propranolol #BPH with LUTS- - Continue finasteride and tamsulosin #Benign essential tremor- - Continue propranolol #CODE STATUS: Patient is able to indicate that he is a full code Admission and Anticipated Discharge Date Admission Date: March 21, 2024 Subjective No acute events overnight Currently no new complaints Review of Systems Review of Systems: Comprehensive ROS neg Physical Exam Physical Exam: Gen: NAD HEENT: NC/AT, MMM, no drainage noted in the left ear, though pinna is red with one yellowish fluid filled blisters (improving compared to yesterday), no pain when pressure applied to maxillary / frontal sinuses Lungs: CTAB CVS: s1s2nl, RRR Abd: soft, NT, nl bowel sounds Ext: no edema Results & Data Results & Data Vital Signs (Past 12 Hours) Vital Signs Temp Pulse Pulse Resp BP Pulse Ox O2 Del Method 03/22/24 07:32 36.9 C 70 18 130/82 95 Room Air 03/22/24 07:14 72 03/22/24 02:45 37.3 C 84 20 128/80 92 Room Air 03/22/24 01:48 82 03/21/24 22:16 36.7 C 82 18 122/80 92 Room Air PG Care Time/CCT Total # of Minutes Spent Total Time Spent with Patient: Total time spent is greater than 50% in coordination of care (as documented) at patient's floor/unit and/or counseling patient: Coding Level of Care Code 47511 SUB INP/OBS CARE 2/35MIN Diagnoses Acute pansinusitis J01.40 Otitis externa of left ear H60.92 Intellectual disability F79 Seizure disorder G40.909
[2024-03-22 22:16] LABS: Appearance Urine Clear (Clear); Bacteria Urine Automated None Seen (None Seen); Bilirubin Urine Negative (Negative); Blood Urine Trace (Negative); Cast Urine Automated 0-2 /lpf (0-2); Color Urine Yellow; Epithelial Cell Urine Auto 0-2 /hpf (0-2); Glucose Urine UA Negative (Negative); Ketones Urine Negative (Negative); Leukocyte Esterase Urine Negative (Negative); Nitrite Urine Negative (Negative); Protein Urine Negative (Negative); RBC Urine Automated 0-2 /hpf (0-2); Specific Gravity Urine 1.009 (1.000-1.030); Urobilinogen Urine Negative (Negative); WBC Urine Automated 0-5 /hpf (0-5); pH Urine 5.5 (4.5-7.5)
[2024-03-23 07:11] LABS: Basophils # (auto) 0.02 K/uL (0.00-0.20); Basophils % (auto) 0.3 %; Hematocrit (blood only) 42.4 % (42.0-52.0); Hemoglobin 14.4 g/dl (14.0-18.0); Immature Granulocytes # (auto) 0.03 K/uL (0.01-0.20); Immature Granulocytes % (auto) 0.5 %; Lymphocytes # (auto) 1.31 K/uL (1.20-3.40); Lymphocytes % (auto) 21.7 %; Mean Corpuscular Hemoglobin 31.4 pg (25.0-34.0); Mean Corpuscular Volume 92.4 fL (80.0-100.0); Mean Platelet Volume 9.4 fL (9.4-12.4); Monocytes # (auto) 0.73 K/uL (0.11-0.59); Monocytes % (auto) 12.1 %; Neutrophils # (auto) 3.94 K/uL (1.40-6.50); Neutrophils % (auto) 65.4 %; Platelet Count 153 K/uL (130-400); RDW Coefficient of Variation 13.2 % (11.5-14.5); RDW Standard Deviation 45.1 fL (36.4-46.3); Red Blood Count 4.59 M/uL (4.70-6.10); White Blood Count 6.03 K/ul (4.8-10.8)
[2024-03-23 07:28] LABS: Albumin Globulin Ratio 1.5 (0.9-2); BUN Creatinine Ratio 15.5 (10-20); Bilirubin,Total 0.4 mg/dl (0.2-1.0); Creatinine Clr Calc Pharmacy 117.5 ml/min; Globulin 2.7 gm/dl (2.5-4.0); Magnesium 1.8 mg/dl (1.7-2.4); Potassium 4.2 mmol/L (3.5-5.1); Total Protein 6.7 gm/dl (6.0-8.3)
[2024-03-23 07:31] LABS: Partial Thromboplastin Ratio 1.7; Partial Thromboplastin Time 45 Seconds (21-31); Prothrombin Time 10.7 Seconds (9.0-12.0)
--- NOTE | 2024-03-23 09:11 | Hospitalist Progress Note ---
Date of Service March 23, 2024 Assessment & Plan (1) Acute pansinusitis: (2) Otitis externa of left ear: (3) Intellectual disability: (4) Seizure disorder: Plan The patient is a 58-year-old male with past medical history including intellectual disability, hyperhidrosis, closed head injury, seizure disorder, anxiety depression, BPH with LUTS, GERD, cerebellar ataxia, hyperlipidemia, NIKI, cognitive impairment, and epilepsy/myoclonus.The patient was brought to the emergency department after being noted by fellow inhabitants of his personal custodial to have generalized weakness, fatigue and inability to ambulate upon awakening in the morning. He slept throughout most of the day. And due to persistent symptoms later on in the evening, he was brought to the emergency department for assessment. He was noted by staff there to have significant erythema of his left ear and drainage with discomfort worsening as the day progressed. #Acute pansinusitis/severe otitis externa left ear- - CT scan of sinuses and face show complete opacification of left maxillary, ethmoid, sphenoid and frontal sinuses with extension into the left nasal cavity. There is also mild mastoiditis - Likely cause of patient's fatigue, lethargy, confusion and decreased responsiveness - Patient was given vancomycin IV and Zosyn IV from the ED - MRSA neg - cont levofloxacin 750 mg IV daily, Day 4 - Ciprodex 4 drops in left ear twice daily Day 4 - Guaifenesin BID - Follow clinical examination - Patient did receive 1 L normal saline bolus in the ED. Encourage oral intake otherwise #Intellectual disability/anxiety depression/seizure disorder- - cont clobazam, felbamate, and brivaracetam - cont buspirone, fluoxetine, primidone, and propranolol #BPH with LUTS- - Continue finasteride and tamsulosin #Benign essential tremor- - Continue propranolol #CODE STATUS: Patient is able to indicate that he is a full code #Dispo: one more day of IV abx, potential d/c Sun / Admission and Anticipated Discharge Date Admission Date: March 21, 2024 Subjective No acute events overnight Currently no new complaints Review of Systems Review of Systems: Comprehensive ROS neg Physical Exam Physical Exam: Gen: NAD HEENT: NC/AT, MMM, no drainage noted in the left ear, redness continuing to improve, blister is collapsed, no pain when pressure applied to maxillary / frontal sinuses Lungs: CTAB CVS: s1s2nl, RRR Abd: soft, NT, nl bowel sounds Ext: no edema Results & Data Results & Data Vital Signs (Past 12 Hours) Vital Signs Temp Pulse Pulse Resp BP Pulse Ox Pulse Ox 03/23/24 08:06 37.1 C 63 18 121/79 92 03/23/24 05:00 95 03/23/24 02:32 36.9 C 62 18 137/81 95 03/23/24 00:41 62 03/22/24 23:15 36.8 C 62 18 118/75 92 O2 Del Method O2 Del Method 03/23/24 08:06 Room Air 03/23/24 05:00 Room Air 03/23/24 02:32 Room Air 03/23/24 00:41 03/22/24 23:15 Room Air PG Care Time/CCT Total # of Minutes Spent Total Time Spent with Patient: Total time spent is greater than 50% in coordination of care (as documented) at patient's floor/unit and/or counseling patient: Coding Level of Care Code 35827 SUB INP/OBS CARE 2/35MIN Diagnoses Acute pansinusitis J01.40 Otitis externa of left ear H60.92 Intellectual disability F79 Seizure disorder G40.909
[2024-03-24 08:05] LABS: Basophils # (auto) 0.03 K/uL (0.00-0.20); Basophils % (auto) 0.6 %; Hematocrit (blood only) 41.4 % (42.0-52.0); Hemoglobin 14.1 g/dl (14.0-18.0); Immature Granulocytes # (auto) 0.03 K/uL (0.01-0.20); Immature Granulocytes % (auto) 0.6 %; Lymphocytes # (auto) 1.27 K/uL (1.20-3.40); Lymphocytes % (auto) 24.2 %; Mean Corpuscular Hgb Conc 34.1 g/dL (32.0-36.0); Mean Corpuscular Volume 93.9 fL (80.0-100.0); Mean Platelet Volume 9.4 fL (9.4-12.4); Monocytes # (auto) 0.61 K/uL (0.11-0.59); Monocytes % (auto) 11.6 %; Neutrophils # (auto) 3.31 K/uL (1.40-6.50); Platelet Count 168 K/uL (130-400); RDW Coefficient of Variation 13.3 % (11.5-14.5); RDW Standard Deviation 46.3 fL (36.4-46.3); Red Blood Count 4.41 M/uL (4.70-6.10); White Blood Count 5.25 K/ul (4.8-10.8)
[2024-03-24 08:31] LABS: Albumin Globulin Ratio 1.6 (0.9-2); BUN Creatinine Ratio 16.5 (10-20); Bilirubin,Total 0.4 mg/dl (0.2-1.0); Creatinine Clr Calc Pharmacy 108.2 ml/min; Globulin 2.5 gm/dl (2.5-4.0); Magnesium 1.8 mg/dl (1.7-2.4); Potassium 4.1 mmol/L (3.5-5.1); Total Protein 6.5 gm/dl (6.0-8.3)
[2024-03-24 08:33] LABS: Partial Thromboplastin Ratio 1.8; Partial Thromboplastin Time 49 Seconds (21-31); Prothrombin Time 10.6 Seconds (9.0-12.0)
[2024-03-24] MEDS: ACETAMINOPHEN 325 MG TAB PO PRN (13:12)
--- NOTE | 2024-03-24 15:16 | Hospitalist Progress Note ---
Date of Service March 24, 2024 Assessment & Plan (1) Acute pansinusitis: (2) Otitis externa of left ear: (3) Intellectual disability: (4) Seizure disorder: Plan The patient is a 58-year-old male with past medical history including intellectual disability, hyperhidrosis, closed head injury, seizure disorder, anxiety depression, BPH with LUTS, GERD, cerebellar ataxia, hyperlipidemia, NIKI, cognitive impairment, and epilepsy/myoclonus.The patient was brought to the emergency department after being noted by fellow inhabitants of his personal [facility] to have generalized weakness, fatigue and inability to ambulate upon awakening in the morning. He slept throughout most of the day. And due to persistent symptoms later on in the evening, he was brought to the emergency department for assessment. He was noted by staff there to have significant erythema of his left ear and drainage with discomfort worsening as the day progressed. #Acute pansinusitis/severe otitis externa left ear- - CT scan of sinuses and face show complete opacification of left maxillary, ethmoid, sphenoid and frontal sinuses with extension into the left nasal cavity. There is also mild mastoiditis - Likely cause of patient's fatigue, lethargy, confusion and decreased responsiveness - Patient was given vancomycin IV and Zosyn IV from the ED - MRSA neg - cont levofloxacin 750 mg IV daily, Day 4. Plan to discharge on p.o. Levaquin - Ciprodex 4 drops in left ear twice daily Day 4 - Guaifenesin BID - Follow clinical examination - Patient did receive 1 L normal saline bolus in the ED. Encourage oral intake otherwise #Intellectual disability/anxiety depression/seizure disorder- - cont clobazam, felbamate, and brivaracetam - cont buspirone, fluoxetine, primidone, and propranolol #BPH with LUTS- - Continue finasteride and tamsulosin #Benign essential tremor- - Continue propranolol #CODE STATUS: Patient is able to indicate that he is a full code #Dispo: one more day of IV abx, potential d/c Tues Admission and Anticipated Discharge Date Admission Date: March 24, 2024 Subjective Patient was seen and examined at 11:55 AM. Patient states he feels well ove rall. He is unsure if he worked with PT and OT. Denies chest pain or shortness of breath. Review of Systems Review of Systems: All systems reviewed & are unremarkable except as noted in Subjective Physical Exam Physical Exam: General: Awake, conversant. Scabs noted on the left earlobe. No blister noted. Appears to be healing Heart: S1, S2/regular rate and rhythm, no murmur rubs or gallops Lungs: Clear to auscultation bilaterally. Normal effort Abdomen: Soft/nontender/nondistended. No hepatosplenomegaly Extremities: No clubbing/cyanosis. No edema Behavior: Appropriate, cooperative Results & Data Results & Data Vital Signs (Past 12 Hours) Vital Signs Temp Pulse Pulse Resp BP Pulse Ox O2 Del Method 03/24/24 11:30 36.5 C 62 20 131/72 95 Room Air 03/24/24 10:02 55 L 03/24/24 07:34 36.6 C 59 L 20 103/67 93 Room Air Laboratory Results Abnormal lab results 03/24/24 Range/Units 07:48 RBC 4.41 L (4.70-6.10) M/uL Hct 41.4 L (42.0-52.0) % [place] # (Auto) 0.61 H (0.11-0.59) K/uL APTT 49 H (21-31) Seconds PG Care Time/CCT Total # of Minutes Spent Total Time Spent with Patient: Total time spent is greater than 50% in coordination of care (as documented) at patient's floor/unit and/or counseling patient: Coding Level of Care Code 54685 SUB INP/OBS CARE 2/35MIN Diagnoses Acute pansinusitis J01.40 Otitis externa of left ear H60.92 Intellectual disability F79 Seizure disorder G40.907
[2024-03-25 07:48] VITALS: RESP 20; O2SAT 93
[2024-03-25 11:13] VITALS: PULSE 56
--- NOTE | 2024-03-25 11:24 | Discharge Summary ---
Date of Service March 25, 2024 Admission HPI Per Admitting Provider The patient is a 58-year-old male with past medical history including intellectual disability, hyperhidrosis, closed head injury, seizure disorder, anxiety depression, BPH with LUTS, GERD, cerebellar ataxia, hyperlipidemia, NIKI, cognitive impairment, and epilepsy/myoclonus.The patient was brought to the emergency department after being noted by fellow inhabitants of his personal [facility]-way to have generalized weakness, fatigue and inability to ambulate upon awakening in the morning. He slept throughout most of the day. And due to persistent symptoms later on in the evening, he was brought to the emergency dep artment for assessment. He was noted by staff there to have significant erythema of his left ear and drainage with discomfort worsening as the day progressed. Admission Exam Per Admitting Provider The patient is arouses easily to conversation, mildly lethargic, lying in bed and in no acute distress. HEENT--PERRL, EOMI, mucous membranes and oropharynx dry. Left ear with moderately severe erythema externally and mild drainage from external ear canal Neck--supple. No JVD. No bruits. Thyroid normal, trachea midline, no a denopathy. Heart--normal S1 and S2. No murmurs, rubs or gallops. Lungs--clear bilaterally, no respiratory distress, no accessory muscle use. Abdomen--normal bowel sounds and soft. Nontender. Nondistended, no hernias or masses, no organomegaly. Extremities--no cyanosis or clubbing. No edema. Dermatologic--normal except for left ear as noted Neurologic--cranial nerves II through XII grossly intact. Rheumatologic--limited exam Psychiatric--mildly lethargic, but arouses easily to voice Principal Diagnosis Acute pansinusitis Left ear otitis externa Intellectual disability Seizure disorder Discharge Exam General: Awake, conversant. Scabs noted on the left earlobe. No blister noted. Appears to be healing Heart: S1, S2/regular rate and rhythm, no murmur rubs or gallops Lungs: Clear to auscultation bilaterally. Normal effort Abdomen: Soft/nontender/nondistended. No hepatosplenomegaly Extremities: No clubbing/cyanosis. No edema Behavior: Appropriate, cooperative Discharge Data Allergies Allergy/AdvReac Type Severity Reaction Status Date / Time sulfamethoxazole Allergy Intermediate dizziness Verified 03/21/24 02:16 and increase in tremor trimethoprim Allergy Intermediate dizziness Verified 03/21/24 02:16 and increase in tremor grapefruit AdvReac Mild INTERACTS Verified 03/21/24 02:16 WITH OTHER MEDS ibuprofen AdvReac Mild avoids Verified 03/21/24 02:16 secondary to reactions with other medications levetiracetam AdvReac Mild AGITATION Verified 03/21/24 02:16 Consultations 03/21/24 01:46 ED Decision to Admit Stat Ordered Studies 03/20/24 22:11 CT head/brain wo con Stat CT mastoid w con Stat Hospital Course (1) Acute pansinusitis: (2) Otitis externa of left ear: (3) Intellectual disability: (4) Seizure disorder: Plan The patient is a 58-year-old male with past medical history including intellectual disability, hyperhidrosis, closed head injury, seizure disorder, anxiety depression, BPH with LUTS, GERD, cerebellar ataxia, hyperlipidemia, NIKI, cognitive impairment, and epilepsy/myoclonus.The patient was brought to the emergency department after being noted by fellow inhabitants of his personal half-way to have generalized weakness, fatigue and inability to ambulate upon awakening in the morning. He slept throughout most of the day. And due to persistent symptoms later on in the evening, he was brought to the emergency department for assessment. He was noted by staff there to have significant erythema of his left ear and drainage with discomfort worsening as the day progressed. #Acute pansinusitis/severe otitis externa left ear- - CT scan of sinuses and face show complete opacification of left maxillary, ethmoid, sphenoid and frontal sinuses with extension into the left nasal cavity. There is also mild mastoiditis - Likely cause of patient's fatigue, lethargy, confusion and decreased responsiveness - Patient was given vancomycin IV and Zosyn IV from the ED - MRSA neg -Patient was treated with Levaquin IV. Plan to discharge on p.o. Levaquin - Ciprodex 4 drops in left ear twice daily - Guaifenesin BID - Follow clinical examination - Patient did receive 1 L normal saline bolus in the ED. Encourage oral intake otherwise #Metabolic encephalopathy due to acute pansinusitis and otitis externa Patient presented with fatigue, excessive somnolence Resolved Back to baseline #Intellectual disability/anxiety depression/seizure disorder- - cont clobazam, felbamate, and brivaracetam - cont buspirone, fluoxetine, primidone, and propranolol #BPH with LUTS- - Continue finasteride and tamsulosin #Benign essential tremor- - Continue propranolol #CODE STATUS: Patient is able to indicate that he is a full code #Dispo: Discharge to personal-half-way today Total Time Total Time Spent Total Time Spent (In Minutes): 35 Discharge Plan Discharge Items Patient Disposition: Personal Retirement Reason For Visit: PANSINUSITIS, OTITIS EXTERNA Discharge Diagnosis: Acute pansinusitis Left ear otitis externa Intellectual disability Seizure disorder Condition on Discharge: Good Activity: Resume your previous activity Non-emergency contact: Primary Care Provider Call non-emergency contact if: you have any medication questions and your symptoms worsen Follow-up/Referrals: Ceferino Ahuja, [Primary Care Provider] - Diet: Heart Healthy Addtl Attending Provider Instructions: Advised to follow-up with PCP in 1 week Advised to continue oral antibiotic to complete the course Pending Studies at Discharge: No Stand-Alone Forms: My [facility] Skilled Items Patient informed of condition?: Yes DNR: No Discharge Level of Care: Other Communicable Disease: No Discharge Prognosis: Stable Lines: None Urinary Catheter: No Medications and DC Order Prescriptions: New ciprofloxacin-dexamethasone 0.3-0.1 % Drops,Suspension 4 drp otic (ear) BID 4 Days Qty: 7.5 0RF levofloxacin 750 mg tablet 750 mg PO DAILY 4 Days Qty: 4 0RF Continued fluoxetine [Prozac] 20 mg capsule 20 mg PO QAM Qty: 30 3RF Briviact 50 mg tablet 100 mg PO BID 30 Days Qty: 120 5RF clobazam 10 mg tablet 5 mg PO BID 30 Days Qty: 30 5RF Rx Instructions: TAKES AT 0800 & 1600 primidone 50 mg tablet 50 mg PO BID 30 Days Qty: 60 6RF Rx Instructions: TAKE at 0800 and 2000 buspirone 15 mg Tablet 15 mg PO QAM buspirone 10 mg tablet 10 mg PO QPM felbamate 600 mg tablet 600 mg PO AMPM PreserVision AREDS [id number] linu-wi-[id number] tablet 2 tab PO QAM propranolol 80 mg capsule,extended release 24hr 80 mg PO QAM multivitamin with folic acid [Daily-Eric (with folic acid)] 400 mcg tablet 1 tab PO QAM tamsulosin [Flomax] 0.4 mg capsule 0.4 mg PO AMPM finasteride 5 mg tablet 5 mg PO QAM Discharge Orders: Discharge Order (Routine); Ordered 03/25/24 Ordered By: Jaida Perdmoo/Other Patient Handouts: Chronic Sinusitis, When to Use Antibiotics, ED External Ear Infection (Adult) Admission Data Admit Date/Time: 03/24/24 09:33 Attending Provider: Jaida Garcia Admit Provider: Norris Latif Primary Care Provider: Ceferino Ahuja Other Providers: Norris Latif Other Interventions: Discharge Summary Assessment (RN) Last Done: 03/25/24 11:09
[2024-03-25 11:27] VITALS: BP 143/87; TEMP 97.7
== END 2024-03-25 13:35 | disposition home or self-care (01) | DRG 152 ==
LOC: SUATTDRO → ED 19:47 → EDINP 19:47 → SUATTDRO 03-21 02:45 → 2N 03-21 04:47